=== PATIENT | female | born 1945 | race Caucasian/White ===

== ENCOUNTER 2016-08-09 05:11 | Inpatient (IN) | payer OTHER ==
--- NOTE | 2016-07-31 08:07 | History and Physical ---
History & Physical Date Jul 31, 2016. Chief Complaint Left knee pain History of Present Illness The patient is a 71 year old female who presents for preoperative evaluation prior to a left knee replacement. Patient states that they have been having pain in this knee for many years now, which has gradually worsened, it has now gotten to the point it is affecting her daily activities including walking, standing, going up and down steps. Patient has tried and failed conservative measures including previous cortisone injection and PO NSAIDs with no relief. At this point in time, patient has failed conservative measures and would like to proceed with a left knee replacement. Past Medical/Surgical History Medical Problems: (1) Asthma (2) Diabetes mellitus, type II (3) Dyslipidemia (4) GERD (gastroesophageal reflux disease) (5) Hypertension (6) Hypothyroidism (7) Paroxysmal atrial fibrillation (8) Pulmonary nodules (9) Spinal stenosis of lumbar region (10) Statin intolerance Surgical Problems: (1) H/O shoulder surgery (2) Previous back surgery (3) Status post appendectomy (4) Status post oophorectomy (5) Status post tonsillectomy Additional History Bleeding Tendencies: No Infectious Diseases: No Allergies Coded Allergies: Iodinated Contrast Media (Verified Allergy, Intermediate, HIVES, 06/14/15) Nitrofurantoin (Verified Allergy, Mild, RASH, 06/14/15) Latex1 -Allergic Contact Dermititis (Verified Allergy, Unknown, LOCAL SKIN IRRITATION, 06/14/15) Lidocaine (Verified Allergy, Unknown, lidocaine patch-skin red,hot flushed feeling, 06/14/15) Codeine (Verified Adverse Reaction, Mild, N&V, 06/14/15) Propoxyphene (Verified Adverse Reaction, Mild, NAUSEA AND VOMITING, ) Home Medications Scheduled Aspirin (Aspirin), 81 MG PO DAILY Calcium Carbonate (Calcium), 600 MG PO BID Cholecalciferol (Vitamin D3), 2,000 MG PO BID Cyanocobalamin (Vitamin B-12), 1,000 MCG PO DAILY Fluticasone Prop/Salmeterol (Advair Diskus 250/50 60 Dose), 1 PUFF INH BID Hydrochlorothiazide (Hydrochlorothiazide), 25 MG PO DAILY Irbesartan (Avapro), 150 MG PO DAILY Iron-Vitamin C (Vitron-C), 1 TAB PO DAILY Levothyroxine Sodium (Levothyroxine Sodium), 112 MCG PO DAILY Metformin HCl (Metformin HCl), 500 MG PO DAILY Metoprolol Tartrate (Lopressor) (Lopressor), 75 MG PO QAM Metoprolol Tartrate (Lopressor) (Lopressor), 50 MG PO QPM Omeprazole (Prilosec), 20 MG PO DAILY Sertraline (Zoloft), 25 MG PO DAILY Triamcinolone Acet (Aristocort 0.1%), 1 APPLN TD UD Scheduled PRN Albuterol (Proair Hfa), 2 PUFFS INH Q6H PRN for SOB/Wheezing Alprazolam (Xanax), 0.5 MG PO TID PRN for Anxiety/Agitation Diphenhydramine Hcl (Benadryl), 25 MG PO Q4H PRN for ALLERGIC REACTION Furosemide (Lasix), 20 MG PO DAILY PRN for edema Loratadine (Claritin), 10 MG PO DAILY PRN Physical Examination Skin: warm/dry, no rash Eyes: normal inspection, EOMI, sclerae normal ENT: normal ENT inspection, pharynx normal Head: normocephalic, atraumatic Neck: supple, no adenopathy, trachea midline Cardiovascular: regular rate, rhythm, no edema, no murmur Abdomen / GI: normal bowel sounds, non tender Addiitonal Comments: Left Knee Exam: Knee ROM L * Active ROM - Flexion: 115 degrees, Extension: 5 degrees, Factors: normal, Description: active pain free range of motion. Passive ROM - Flexion: 135 degrees, Extension: 0 degrees, Factors: normal, Description: passive pain free range of motion. Knee ROM R * Active ROM - Flexion: 115 degrees, Extension: 5 degrees, Factors: normal, Description: active pain free range of motion. Passive ROM - Flexion: 135 degrees, Extension: 0 degrees, Factors: normal, Description: passive pain free range of motion. Strength LE Normal Strength Description - Normal lower extremity: Bilateral. Knee * Gait: Antalgic. Alignment - Left: neutral. Ecchymosis - Left: negative. Effusion - Left: mild. Swelling - Left: mild. Flexibility - Left: normal. Maximum tenderness - Left: Medial Joint Line. Patella exam - Crepitation - Left : negative. Patella position - Left: neutral. Tilt - Left: equal. [facility]'s - medial - Left: Positive. Knee Comments The patient has no calf tenderness. Knee Normal Inspection - Atrophy - Left: Absent. Skin - Left: Normal. Patella exam - Apprehension - Left: Negative. Q-angle - Left: Normal. Rusty's - Left: Negative. Tl's - lateral - Left: Negative. Posterior drawer - Left: Negative. Anterior drawer - Left: Negative. Valgus stress - Left: Negative. Varus stress - Left: Negative. Extensor lag - Left: Normal. Neurovascular LE Normal Neurovascular examination including reflexes, sensation , and pulses is within normal limits. Left Knee Xray: Xrays reviewed of the left knee showing findings consistent with degenerative joint disease including joint space narrowing, subchondral sclerosis and peripheral osteophyte formation. no acute bony pathology, overall varus alignment. Impression: degenerative joint disease of the left knee with no acute bony pathology noted. Diagnosis Left Knee DJD Past Medical as above Plan of Treatment Further care discussed with patient and at this point in time has failed conservative measures and would like to proceed with a left total knee replacement. Plan on discharge will be home with home physical therapy. DVT prophalaxis with TEDs, SCDs and will also place on aspirin 81 mg p.o. b.i.d. for a month postop. Patient will have follow up appointment in our office two weeks post op for staple/suture removal and re-evaluation. Patient otherwise has no other questions or concerns.
[2016-07-31 10:15] VITALS: BMI 41.0
--- NOTE | 2016-07-31 11:09 | PAT Medication Instructions ---
Service Date Jul 31, 2016. Current Home Medication List Albuterol (Proair Hfa), 2 PUFFS INH Q6H PRN for SOB/Wheezing Alprazolam (Xanax), 0.25 MG PO QAM Aspirin (Aspirin), 81 MG PO HS Dicyclomine Hcl (Bentyl), 10 MG PO QID PRN for RN Diphenhydramine Hcl (Benadryl), 25 MG PO Q4H PRN for ALLERGIC REACTION Fluticasone Prop/Salmeterol (Advair Diskus 250/50 60 Dose), 1 PUFF INH BID Furosemide (Lasix), 20 MG PO DAILY PRN for edema Hydrochlorothiazide (Hydrochlorothiazide), 25 MG PO QAM Irbesartan (Avapro), 150 MG PO QAM Iron-Vitamin C (Vitron-C), 1 TAB PO HS Levothyroxine Sodium (Levothyroxine Sodium), 1 TAB PO QAM Loratadine (Claritin), 10 MG PO DAILY PRN Metformin HCl (Metformin HCl), 500 MG PO QAM Metoprolol Tartrate (Lopressor) (Lopressor), 75 MG PO QAM Metoprolol Tartrate (Lopressor) (Lopressor), 50 MG PO QPM Ondansetron Hcl (Zofran), 4 MG PO PRN PRN for Nausea Sertraline (Zoloft), 25 MG PO QAM Triamcinolone Acet (Aristocort 0.1%), 1 APPLN TD UD [Vitamin B12], 1 DOSE INJ MONTHLYU Medication Instructions For Your Scheduled Surgery Vitamin B12 1 DOSE INJ MONTHLY (continue as usual) - Hold the following medications 48 hours prior to surgery: Metformin HCl (Metformin HCl), 500 MG PO QAM (last dose will be 08/06/16) - Hold the following medications 24 hours prior to surgery: Triamcinolone Acet (Aristocort 0.1%), 1 APPLN TD UD - Hold the following medications the morning of surgery: Loratadine (Claritin), 10 MG PO DAILY PRN Irbesartan (Avapro), 150 MG PO QAM Hydrochlorothiazide (Hydrochlorothiazide), 25 MG PO QAM Furosemide (Lasix), 20 MG PO DAILY PRN for edema Diphenhydramine Hcl (Benadryl), 25 MG PO Q4H PRN for ALLERGIC REACTION Dicyclomine Hcl (Bentyl), 10 MG PO QID PRN for RN - Take the following medications the morning of surgery with a sip of water: Sertraline (Zoloft), 25 MG PO QAM Metoprolol Tartrate (Lopressor) (Lopressor), 75 MG PO QAM Levothyroxine Sodium (Levothyroxine Sodium), 1 TAB PO QAM Ondansetron Hcl (Zofran), 4 MG PO PRN PRN for Nausea (only if absolutely needed) Fluticasone Prop/Salmeterol (Advair Diskus 250/50 60 Dose), 1 PUFF INH BID Alprazolam (Xanax), 0.25 MG PO QAM Albuterol (Proair Hfa), 2 PUFFS INH Q6H PRN for SOB/Wheezing (bring with you to hospital on day of surgery) - Take the following medications as scheduled the night before surgery: Metoprolol Tartrate (Lopressor) (Lopressor), 50 MG PO QPM Iron-Vitamin C (Vitron-C), 1 TAB PO HS Fluticasone Prop/Salmeterol (Advair Diskus 250/50 60 Dose), 1 PUFF INH BID Dicyclomine Hcl (Bentyl), 10 MG PO QID PRN for RN Aspirin (Aspirin), 81 MG PO HS Albuterol (Proair Hfa), 2 PUFFS INH Q6H PRN for SOB/Wheezing If you have any questions please call us at [phone] or [phone] ( [place]) or [phone]
[2016-07-31 11:51] LABS: URINE APPEARANCE CLEAR (CLEAR); URINE BILIRUBIN NEG (NEG); URINE COLOR YELLOW; URINE NITRITE NEG (NEG); URINE SPECIFIC GRAVITY 1.014 (1.000-1.030); UROBILINOGEN NEG (NEG)
[2016-07-31 11:58] LABS: PROTHROMBIN TIME (PATIENT) 10.6 SECONDS (9.0-12.0)
[2016-07-31 12:28] LABS: MANUAL MICROSCOPIC REQUIRED? NO; REVIEW REQ? NO
[~2016-08-09] VITALS: Ht 149.9 cm; Wt 92.9 kg
[2016-08-09] VITALS (9 sets, daily range): BP systolic 119–173; BP diastolic 67–89; PULSE 67–80; TEMP 36.4–36.6; O2SAT 92–97; Ht 149.9 cm; Wt 92.9 kg
[~2016-08-09 05:11] MED LIST: ADVIN25/60 INH; ALBU1AER9 INH; ALPR-411 PO; ASPI81TA82 PO; BND25 PO; CLR10 PO; DICY10CA55 PO; FERRTAB18 PO; FURO-85 PO; GLC500 PO; HYDR25TA5 PO; IRBE-37 PO; LEVO125T4 PO; METO50TA16 PO; ONDA4TAB46 PO; SERT25TA PO; TRMCR130WC TD; VITAMIN B12 INJ
[2016-08-09] MEDS ORDERED: ACETAMINOPHEN 500 MG TAB PO SCH (06:00)
[2016-08-09] MEDS ORDERED: CEFAZOLIN 2000 MG/60 ML D5W 60 ML IV SCH (06:00)
[2016-08-09] MEDS ORDERED: LACTATED RINGER'S 1000ML 1,000 ML IV SCH (06:00)
[2016-08-09] MEDS ORDERED: LACTATED RINGER'S 1000ML IV SCH (06:00)
[2016-08-09] MEDS ORDERED: CeleBREX 200 MG CAP PO SCH (06:00)
[2016-08-09] MEDS ORDERED: FAMOTIDINE 20 MG TAB PO SCH (06:00)
[2016-08-09] MEDS ORDERED: GABAPENTIN 300 MG CAP PO SCH (06:00)
[2016-08-09] MEDS ORDERED: METOCLOPRAMIDE HCL 10 MG TAB PO SCH (06:00)
[2016-08-09] MEDS ORDERED: ROPIVACAINE 5MG/ML 30 ML 150 MG, BUPIVACAINE/EPINEPHR 0.5% MPF 30 ML, KETOROLAC TROMETH... INFIL SCH ×7 (06:00)
[2016-08-09] MEDS ORDERED: DEXAMETHASONE 4 MG TAB PO SCH (06:00)
[2016-08-09] MEDS ORDERED: BUPIVACAINE 0.25% 30 ML VIAL ONE (06:33)
[2016-08-09] MEDS ORDERED: BUPIVACAINE 0.5 % 5 MG/1 ML PF 10ML VIAL ONE (06:33)
[2016-08-09] MEDS ORDERED: FENTANYL CITRATE INJ 50 MCG/1 ML 2 ML VIAL ONE (06:41)
[2016-08-09] MEDS ORDERED: PROPOFOL IV EMULSION 10 MG/ML 20 ML VIAL IV ONE (06:41)
[2016-08-09] MEDS ORDERED: MIDAZOLAM HCL 1 MG/ML 2ML VIAL ONE (06:41)
[2016-08-09] MEDS ORDERED: LIDOCAINE HCL 2% 2 ML VIAL (20MG/ML) ONE (06:41)
[2016-08-09] MEDS: TRANEXAMIC ACID INJ 1,000 MG in SODIUM CHLORIDE 0.9% 100ML 100 ML IV SCH ×2 (06:51→10:50)
[2016-08-09] MEDS ORDERED: BACITRACIN 50000 UNIT VIAL ONE (06:54)
[2016-08-09] MEDS ORDERED: ORTHO JOINT ANESTHETIC ONE (06:54)
[2016-08-09] MEDS ORDERED: POVIDONE-IODINE OP SOLN 30 ML BTL ONE (06:54)
--- NOTE | 2016-08-09 07:11 | History & Physical Bridge Note ---
H&P Re-Evaluation Bridge Note: I have examined the patient, reviewed the History & Physical and in the interval since the performance of the History & Physical I have noted the following changes of clinical significance: No changes noted
[2016-08-09] MEDS ORDERED: LACTATED RINGER'S 1000ML 1,000 ML IV PRN (07:35)
[2016-08-09] MEDS ORDERED: ONDANSETRON INJ 2 MG/ML 2 ML VIAL IV PRN ×2 (07:45→09:15)
[2016-08-09] MEDS ORDERED: FENTANYL CITRATE INJ 50 MCG/1 ML 2 ML VIAL IV PRN (07:45)
--- NOTE | 2016-08-09 08:30 | [facility] Post Operative Brief Note ---
Immediate Operative Summary Operative Date Aug 09, 2016. Pre-Operative Diagnosis Left Knee Degenerative Joint Disease Post-Operative Diagnosis Left Knee Degenerative Joint Disease Procedure(s) Performed Left Total Knee Arthroplasty Surgeon Dr. Eze Palmer [employer] Administrator Surgeon(s) Herberth Henson PA-C Estimated Blood Loss 10ML Findings severe djd lt knee with valgus alignment Specimens A. Left Knee Bone and Tissue Complication(s) None Disposition Recovery Room / PACU
--- NOTE | 2016-08-09 09:10 | OPERATIVE REPORT ---
DATE OF OPERATION: 08/09/2016 PREOPERATIVE DIAGNOSIS: Severe end-stage degenerative joint disease, left knee with valgus alignment. POSTOPERATIVE DIAGNOSIS: Severe end-stage degenerative joint disease, left knee with valgus alignment. PROCEDURE: Total knee arthroplasty utilizing Aden and Nephew total knee arthroplasty nonblock patient matched knee with a Journey II total knee implant. Femur size 3, tibia size 4, poly size 9 and patella size 32 oval. SURGEON: Dr. Eze Palmer. CHECKER LOADER: Herberth Henson PA-C, who was necessary for prepping, draping, retraction and wound closure of deep fascia, subcutaneous and skin that was necessary for the case. ESTIMATED BLOOD LOSS: 10 mL TOURNIQUET TIME: 45 minutes. COMPLICATIONS: None. HISTORY OF PRESENT ILLNESS: The patient is a very pleasant 71-year-old white female who presents with severe end-stage DJD about her left knee. She presents for left total knee arthroplasty after failing attempts at conservative management including physical therapy, anti-inflammatories, relative rest, activity modification, corticosteroid injections, viscosupplementation. She presents for a left total knee arthroplasty. OPERATION AND FINDINGS: PROCEDURE: The patient was properly prepped and draped in supine position for total knee arthroplasty after identifying the appropriate surgical site. An anterior midline incision was made through the subcutaneous tissues down to the region of the extensor mechanism. A medial parapatellar incision was subsequently made. Meticulous hemostasis was obtained and performed at all times. The patella having been subluxed lateralward, medial and lateral meniscal remnants were excised. The patellar cut was then initially made and was sized to the appropriate size. After subluxing the tibia forward the appropriate meniscal fragments having been removed the distal femur was then cut first utilizing a Aden and Nephew block. The distal femoral cuts and chamfer cuts were all made under direct visualization and the proximal tibial osteotomy cut was also made utilizing Aden and Nephew blocks and checked with an extramedullary guide. The appropriate trial components on the femur and tibia were placed. Appropriate trial spacers were used to check flexion and extension gaps. With flexion and extension gaps being equal, the components were then subsequently after thorough irrigation and debridement lavage components were then subsequently cemented in the following order: femur, tibia and patella. Exparel was used for intraoperative anesthesia, the medial parapatellar incision was closed utilizing #1 Vicryl, subQ was closed with 2-0 Vicryl, skin was closed with skin clips. A sterile compression dressing was placed. The patient was taken to recovery room in stable condition. Due to the complex nature of the procedure, the entire surgery was performed with the operational assistance of Herberth Henson PA-C. The certified surgical first assistant, under direct supervision, was involved in the actual performance of all aspects of the surgical procedure including hemostasis, tissue retraction and incision, instrument management, patient positioning, and wound closure. I attest to the content of the Intraoperative Record and any orders documented therein. Any exceptio ns are noted below.
[2016-08-09] MEDS ORDERED: ALUMINUM/MAGNESIUM/SIMETH (MAALOX MAX) 30 ML UDC PO PRN (09:15)
[2016-08-09] MEDS ORDERED: DICYCLOMINE HCL 10 MG CAP PO PRN (09:15)
[2016-08-09] MEDS ORDERED: SOD PHOSPHATE/SOD BIPHOSPHATE ENEMA 132 ML BTL PR PRN (09:15)
[2016-08-09] MEDS ORDERED: MAGNESIUM HYDROXIDE SUSP 30 ML UDC PO PRN (09:15)
[2016-08-09] MEDS ORDERED: ALBUTEROL HFA 8 GM INHALER INH PRN (09:15)
[2016-08-09] MEDS ORDERED: BISACODYL 10 MG SUPP PR PRN (09:15)
[2016-08-09] MEDS ORDERED: MoRPHine SULFATE 2 MG/ML CARP IV PRN ×2 (09:30→11:15)
[2016-08-09] MEDS ORDERED: SCOPOLAMINE 1.5 MG TDSY TD ONE (09:37)
--- NOTE | 2016-08-09 10:03 | DIAGNOSTIC IMAGING REPORT ---
LEFT KNEE 2 VIEWS History: Left total knee arthroplasty. Degenerative arthritis. Postop. FINDINGS: The patient is status post a left total knee arthroplasty. The hardware is intact. No fracture or dislocation. Surgical drains are in place. IMPRESSION: Left total knee arthroplasty. No evidence for hardware complication. Electronically signed by: Norm Meraz M.D. 08/09/2016 10:01 AM Dictated Date/Time: 08/09/2016 10:01 AM
--- NOTE | 2016-08-09 10:50 | Anesthesiology Progress Note ---
Anesthesia Post Op Note Date & Time Aug 09, 2016 at 10:50 Vital Signs Pain Intensity: 0.0 Vital Signs Past 12 Hours Date Time Temp Pulse Resp B/P Pulse Ox O2 Delivery O2 Flow Rate FiO2 08/09/16 10:15 Nasal Cannula 2.0 08/09/16 10:15 36.5 67 18 128/77 97 Nasal Cannula 2.0 08/09/16 10:15 97 Nasal Cannula 2.0 08/09/16 10:00 64 20 08/09/16 10:00 65 20 91 08/09/16 09:58 128/73 08/09/16 09:55 64 18 96 08/09/16 09:55 64 18 08/09/16 09:54 64 14 95 08/09/16 09:54 61 14 08/09/16 09:53 139/68 08/09/16 09:50 36.4 64 17 130/64 94 Nasal Cannula 2 08/09/16 09:49 62 18 98 08/09/16 09:49 63 18 08/09/16 09:48 130/64 08/09/16 09:44 63 22 08/09/16 09:44 61 22 98 08/09/16 09:43 145/74 08/09/16 09:40 65 18 94 08/09/16 09:40 64 18 08/09/16 09:38 145/69 08/09/16 09:35 65 17 95 08/09/16 09:35 65 17 08/09/16 09:33 136/70 08/09/16 09:30 65 20 96 08/09/16 09:30 65 20 08/09/16 09:28 147/65 08/09/16 09:25 66 21 08/09/16 09:25 66 21 98 08/09/16 09:23 143/65 08/09/16 09:20 65 20 08/09/16 09:20 66 20 100 08/09/16 09:18 133/69 08/09/16 09:15 37.4 70 18 146/75 99 Mask 10 08/09/16 09:15 68 20 08/09/16 09:15 69 20 100 08/09/16 06:00 36.5 69 20 173/89 92 Room Air Notes Mental Status: alert / awake / arousable, participated in evaluation Pt Amnestic to Procedure: Yes Nausea / Vomiting: adequately controlled Pain: adequately controlled Airway Patency, RR, SpO2: stable & adequate BP & HR: stable & adequate Hydration State: stable & adequate Anesthetic Complications: no major complications apparent
[2016-08-09] MEDS: SODIUM CHLORIDE 0.9% 1000ML 1,000 ML IV SCH ×2 (10:51→20:52)
[2016-08-09] MEDS ORDERED: MoRPHine SULFATE 10 MG/ML CARP/VIAL IV PRN (11:00)
[2016-08-09] MEDS ORDERED: MoRPHine SULFATE 4 MG/ML 1 ML CARP\\VIAL IV PRN (11:00)
--- NOTE | 2016-08-09 11:14 | Medical Consult ---
Consultation Date of Consultation: Aug 09, 2016. Attending Physician: Eze Palmer D.O. Reason for Consultation: Medical management History of Present Illness This is a 71 yo F with PMHx DM II, HTN, paroxsysmal atrial fibrillation, pulmonary granulomas, hypothyroidism, asthma, spinal stenosis of the lubar spine , dyslipidemia, s/p left total knee replacement completed 08/09/[address] Palmer. The patient was seen at bedside this morning, her daughter is present too. She is doing well s/p surgery. Her pain is adequately controlled. No acute complaints. She has not yet passed gas. Patient has feeling of her distal extremities and states numbness is wearing off. Past Medical/Surgical History HTN Paroxsysmal atrial fibrillation DM II Hypothyroidism Asthma Spinal stenosis Dyslipidemia Family History FH: HTN (hypertension) FH: diabetes mellitus FH: gallbladder disease FH: heart disease FH: kidney disease FH: seizures Social History Smoking Status: Former Smoker Smokeless Tobacco Use: No Alcohol Use: none Drug Use: none Marital Status: single Housing Status: lives alone Occupation Status: employed Allergies Coded Allergies: Iodinated Contrast Media (Verified Allergy, Intermediate, HIVES, 08/09/16) Nitrofurantoin (Verified Allergy, Mild, RASH, 08/09/16) Latex1 -Allergic Contact Dermititis (Verified Allergy, Unknown, LOCAL SKIN IRRITATION, 08/09/16) Lidocaine (Verified Allergy, Unknown, lidocaine patch-skin red,hot flushed feeling, 08/09/16) Statins (Unverified Allergy, Unknown, LEG CRAMPS, 07/31/16) Codeine (Verified Adverse Reaction, Mild, N&V, 07/31/16) Propoxyphene (Verified Adverse Reaction, Mild, NAUSEA AND VOMITING, ) Current Inpatient Medications Current Inpatient Medications Medications (Trade) Dose Ordered Sig/Connor Route Start Time Stop Time Status Last Admin Dose Admin Cefazolin Sodium (Ancef 2000mg/60 ml D5W) 60 ml @ 100 mls/hr PREOP IV 08/09/16 06:00 08/09/16 18:00 Acetaminophen (Tylenol Tab) 1,000 mg PREOP PO 08/09/16 06:00 08/09/16 18:00 08/09/16 05:46 1,000 MG Celecoxib (CeleBREX CAP) 200 mg PREOP PO 08/09/16 06:00 08/09/16 18:00 08/09/16 05:47 200 MG Dexamethasone (Decadron Tab) 8 mg PREOP PO 08/09/16 06:00 08/09/16 18:00 08/09/16 05:46 8 MG Famotidine (Pepcid Tab) 20 mg PREOP PO 08/09/16 06:00 08/09/16 18:00 08/09/16 05:47 20 MG Gabapentin (Neurontin Cap) 300 mg PREOP PO 08/09/16 06:00 08/09/16 18:00 08/09/16 05:47 300 MG Metoclopramide HCl 10 mg 10 mg PREOP PO 08/09/16 06:00 08/09/16 18:00 08/09/16 05:47 10 MG Tranexamic Acid 1000 mg/Sodium Chloride 110 ml @ 660 mls/hr TODAY@06,0630 IV 08/09/16 06:00 08/09/16 18:00 08/09/16 06:51 660 MLS/HR Ropivacaine/ Bupivacaine HCl/ Epinephrine Bitart/Ketorolac Tromethamine/ Dexamethasone Sodium Phosphate/ Ketamine HCl/ Clonidine/Sodium Chloride/Empty Bag (Naropin Inj 5MG/ Ml 30ML/ Sensorcaine/ Epinephrine 0.5% Mpf 1:200,000/ Toradol Inj/ Decadron Inj/ Ketalar Steri-Vial I... 93.2 ml @ 0 mls/hr TODAY@06 INFIL 08/09/16 06:00 08/09/16 14:00 08/09/16 08:35 93.2 MLS/HR Fentanyl Citrate (Fentanyl Inj) 25 mcg Q5M PRN IV 08/09/16 07:45 08/09/16 12:45 Ondansetron HCl 4 mg 4 mg ONE PRN IV 08/09/16 07:45 08/09/16 12:45 Lactated Ringer's 1,000 ml @ 130 mls/hr Q7H42M PRN IV 08/09/16 07:35 08/09/16 12:35 Sodium Chloride 1,000 ml @ 100 mls/hr Q10H IV 08/09/16 09:14 08/10/16 09:13 08/09/16 10:51 100 MLS/HR Cefazolin Sodium/ Dextrose (Ancef Iv/D5 50ml) 60 ml @ 100 mls/hr Q8H IV 08/09/16 16:00 08/10/16 00:35 Acetaminophen (Tylenol Tab) 1,000 mg Q8 PO 08/09/16 14:00 09/08/16 13:59 Magnesium Hydroxide (Milk Of Magnesia Susp) 30 ml Q6H PRN PO 08/09/16 09:15 09/08/16 09:14 Bisacodyl (Dulcolax Supp) 10 mg DAILY PRN [place] 08/09/16 09:15 09/08/16 09:14 Sodium Biphosphate/ Sodium Phosphate (Fleet Enema) 132 ml DAILY PRN [place] 08/09/16 09:15 09/08/16 09:14 Senna (Senokot Tab) 17.2 mg HS PO 08/09/16 21:00 09/08/16 20:59 Docusate Sodium (coLACE CAP) 100 mg BID PO 08/09/16 21:00 09/08/16 20:59 Diphenhydramine HCl (Benadryl Cap) 25 mg Q8H PRN PO 08/09/16 09:15 09/08/16 09:14 Al Hydrox/Mg Hydrox/Simethicone (Maalox Max Susp) 15 ml Q4H PRN PO 08/09/16 09:15 09/08/16 09:14 Multivitamins (Multivitamin Tab) 1 tab QAM PO 08/10/16 09:00 09/09/16 08:59 Ondansetron HCl (Zofran Inj) 4 mg Q6H PRN IV 08/09/16 09:15 09/08/16 09:14 Ferrous Gluconate (Ferrous Gluconate Tab) 324 mg TIDM PO 08/09/16 12:30 09/08/16 12:29 Pantoprazole Sodium (Protonix Tab) 40 mg QAM PO 08/10/16 09:00 09/09/16 08:59 Aspirin (Ecotrin Tab) 81 mg BID PO 08/09/16 21:00 09/08/16 20:59 Albuterol (Ventolin Hfa Inhaler) 2 puffs Q6H PRN INH 08/09/16 09:15 09/08/16 09:14 Alprazolam (Xanax Tab) 0.25 mg QAM PO 08/10/16 09:00 09/09/16 08:59 Dicyclomine HCl (Bentyl Cap) 10 mg QID PRN PO 08/09/16 09:15 09/08/16 09:14 Salmeterol Xinafoate/ Fluticasone (Advair Diskus 250/50 Inh) 1 puff BID INH 08/09/16 21:00 09/08/16 20:59 Irbesartan (Avapro Tab) 150 mg QAM PO 08/10/16 09:00 09/09/16 08:59 Levothyroxine Sodium (Synthroid Tab) 125 mcg DAILYBB PO 08/10/16 06:00 09/09/16 05:59 Loratadine (Claritin Tab) 10 mg DAILY PO 08/10/16 09:00 09/09/16 08:59 Metoprolol Tartrate (Lopressor Tab) 50 mg QPM PO 08/09/16 21:00 09/08/16 20:59 Metoprolol Tartrate (Lopressor Tab) 75 mg QAM PO 08/10/16 09:00 09/09/16 08:59 Sertraline HCl (Zoloft Tab) 25 mg QAM PO 08/10/16 09:00 09/09/16 08:59 Miscellaneous Information (Order Awaiting Action) 1 ea QS N/A 08/09/16 16:00 09/08/16 15:59 Insulin Aspart (novoLOG ASPART) SLIDING SCALE G... ACHS SC 08/09/16 12:00 09/08/16 11:59 Oxycodone HCl (Roxicodone Immediate Rel Tab) 1 TABLET FOR PAIN RATING... Q4H PRN PO 08/09/16 09:30 08/23/16 09:29 Tramadol HCl (Ultram Tab) 50 mg Q4H PRN PO 08/09/16 09:30 09/08/16 09:29 Scopolamine (Transderm-Scop Patch) 1.5 mg Q72H TD 08/12/16 10:00 09/11/16 09:59 Miscellaneous (Remove Transderm-Scop Patch) 1 ea Q72H N/A 08/12/16 09:59 09/11/16 09:58 Miscellaneous Information (Check Scopolamine Patch Placement) 1 ea QS N/A 08/09/16 16:00 09/08/16 15:59 Morphine Sulfate (MoRPHine SULFATE INJ) 4 mg Q4HWA PRN IV 08/09/16 09:30 08/23/16 09:29 Morphine Sulfate (MoRPHine SULFATE INJ) 4 mg Q4HWA PRN IV 08/09/16 11:00 08/23/16 10:59 Morphine Sulfate (MoRPHine SULFATE INJ) 6 mg Q4HWA PRN IV 08/09/16 11:00 08/23/16 10:59 Morphine Sulfate (MoRPHine SULFATE INJ) 2 mg Q4HWA PRN IV 08/09/16 11:15 08/23/16 11:14 Review of Systems Constitutional: + fatigue, No chills, No fever, No sweats Eyes: No diplopia ENT: No sore throat, No trouble swallowing Respiratory: + cough (chronic dry cough), No dyspnea at rest, No dyspnea on exertion, No shortness of breath Cardiovascular: No chest pain, No palpitations Abdomen: No constipation, No diarrhea, No nausea, No pain, No vomiting Musculoskeletal: No calf pain Neurologic: No numbness/tingling, No weakness Integumentary: No itch, No rash Physical Exam Date Time Temp Pulse Resp B/P Pulse Ox O2 Delivery O2 Flow Rate FiO2 08/09/16 10:52 68 18 144/84 92 Nasal Cannula 2.0 08/09/16 10:15 Nasal Cannula 2.0 08/09/16 10:15 36.5 67 18 128/77 97 Nasal Cannula 2.0 08/09/16 10:15 97 Nasal Cannula 2.0 08/09/16 10:00 64 20 08/09/16 10:00 65 20 91 08/09/16 09:58 128/73 08/09/16 09:55 64 18 96 08/09/16 09:55 64 18 08/09/16 09:54 64 14 95 08/09/16 09:54 61 14 08/09/16 09:53 139/68 08/09/16 09:50 36.4 64 17 130/64 94 Nasal Cannula 2 08/09/16 09:49 62 18 98 08/09/16 09:49 63 18 08/09/16 09:48 130/64 08/09/16 09:44 63 22 2/15/17 09:44 61 22 98 08/09/16 09:43 145/74 08/09/16 09:40 65 18 94 08/09/16 09:40 64 18 08/09/16 09:38 145/69 08/09/16 09:35 65 17 95 08/09/16 09:35 65 17 08/09/16 09:33 136/70 08/09/16 09:30 65 20 96 08/09/16 09:30 65 20 08/09/16 09:28 147/65 08/09/16 09:25 66 21 08/09/16 09:25 66 21 98 08/09/16 09:23 143/65 08/09/16 09:20 65 20 08/09/16 09:20 66 20 100 08/09/16 09:18 133/69 08/09/16 09:15 37.4 70 18 146/75 99 Mask 10 08/09/16 09:15 68 20 08/09/16 09:15 69 20 100 08/09/16 06:00 36.5 69 20 173/89 92 Room Air General Appearance: WD/WN, no apparent distress, + obese Head: normocephalic, atraumatic Eyes: PERRL, EOMI ENT: hearing grossly normal, pharynx normal Neck: supple, no JVD Respiratory/Chest: lungs clear, normal breath sounds, no respiratory distress, no accessory muscle use Cardiovascular: regular rate, rhythm, no JVD, normal peripheral pulses Abdomen/GI: normal bowel sounds, non tender, soft Back: normal inspection Extremities/Musculoskelatal: normal capillary refill, no pedal edema, + pertinent finding (LLE in HALLE wrap, ice pack on knee, SCDs in place bilaterally. No pain with calf palpation. No edema. ) Neurologic/Psych: alert, normal mood/affect, oriented x 3 Skin: normal color, warm/dry Laboratory Results Last 24 Hours Test 08/09/16 06:07 08/09/16 09:31 Bedside Glucose 136 mg/dl 165 mg/dl Assessment & Plan This is a 71 yo F with PMHx DM II, HTN, paroxsysmal atrial fibrillation, pulmonary granulomas, hypothyroidism, asthma, spinal stenosis of the lubar spine , dyslipidemia, s/p left total knee replacement completed 08/09/[address] Palmer. S/p Left TKA by Dr. Palmer on 08/09/16 - Analgesia with oxycodone 5 or 10 mg Q4H prn, tramadol 50 mg Q4H prn, morphine sulfate IV 2,4,6 mg prn - Bowel regimen with miralax, senna, colace, MOM prn - PT/OT and anticoagulation (asa 81 mg BID) per the primary team - Continue elevation and ice - Received dexamethasone 8 mg, gabapentin 200 mg po and celebrex 200 mg po, prior to surgery, likely to see WBC and glucose elevate due to steroid. HTN - Cont home medications metoprolol 50 mg QAM and 75 mg QPM - Continue irbesartan 150 mg QAM - VSS stable DM II - ISS with accuchecks ACHS - Received steroid preop, will need to adjust ISS accordingly - Diabetic/ aha diet Depression/Anxiety - Cont sertraline 25 mg QAM - xanax 0.25 mg for anxiety Q8H prn Lung granulomas Asthma - Follows with Dr. 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 I personally have seen and examined the patient d/w Miss Mcarthur, and agreed with her evaluation. This is a 71 yo F with PMHx aroxsysmal atrial fibrillation and severe GAURAV s/p left total knee replacement today by Dr. Palmer Continue supportive care Instructed to start using her CPAP DVT prophylaxis by primary team rest of the plan as mentioned above
[2016-08-09 12:39] LABS: BASO % 0.1 %; BASO ABS # 0.01 K/uL (0-0.2); COMPLETE YES; HEMATOCRIT 33.9 % (37-47); IG% 0.3 %; LYMPH % 6.2 %; LYMPH ABS # 0.47 K/uL (1.2-3.4); MEAN CELL VOLUME 92.9 fL (80-100); MEAN CORPUSCULAR HEMOGLOBIN 32.9 pg (25-34); MEAN CORPUSCULAR HGB CONC 35.4 g/dl (32-36); MEAN PLATELET VOLUME 8.7 fL (7.4-10.4); MONO % 0.3 %; NEUT % 93.1 %; PLATELET COUNT 232 K/uL (130-400); RED BLOOD COUNT 3.65 M/uL (4.2-5.4); WHITE BLOOD COUNT 7.57 K/uL (4.8-10.8)
[2016-08-09 13:18] LABS: BUN/CREATININE RATIO 23.1 (10-20); CALCIUM 8.6 mg/dl (8.5-10.1); CREATININE 0.99 mg/dl (0.60-1.20); POTASSIUM 4.2 mmol/L (3.5-5.1)
[2016-08-09] MEDS: FERROUS GLUCONATE 324 MG TAB PO SCH ×2 (13:41→18:12)
[2016-08-09] MEDS: ACETAMINOPHEN 500 MG TAB PO SCH ×2 (13:41→22:09)
[2016-08-09] MEDS: INSULIN ASPART 100 UNITS/ML 3 ML PEN SC SCH ×3 (13:44→21:02)
[2016-08-09] MEDS: CEFAZOLIN IV 2,000 MG in DEXTROSE 5% 50ML 50 ML IV SCH ×2 (15:42→23:25)
[2016-08-09] MEDS: CHECK SCOPOLAMINE PATCH PLACEMENT SCH ×2 (15:43→23:25)
[2016-08-09] MEDS: TRAMADOL HCL 50 MG TAB PO PRN ×2 (16:11→23:29)
[2016-08-09] MEDS: FLUTICASONE/SALMETEROL 250/50 (ADVAIR) 14 PUFF/1 INHALER INH SCH (20:52)
[2016-08-09] MEDS: ASPIRIN 81 MG ECTAB PO SCH (20:53)
[2016-08-09] MEDS: DOCUSATE SODIUM 100 MG CAP PO SCH (20:53)
[2016-08-09] MEDS: SENNA 8.6 MG TAB PO SCH (20:54)
[2016-08-09] MEDS: METOPROLOL TARTRATE 50 MG TAB PO SCH (20:56)
[2016-08-09] MEDS ORDERED: NON-FORMULARY MEDICATION (Iron-Vitamin C (Vitron-C) 1 TAB) PO SCH (21:00)
[2016-08-10] VITALS (8 sets, daily range): BP systolic 103–184; BP diastolic 61–79; PULSE 65–76; TEMP 36.7–37.8; O2SAT 92–95
[2016-08-10] MEDS: SODIUM CHLORIDE 0.9% 1000ML 1,000 ML IV SCH (05:16)
[2016-08-10] MEDS: LEVOTHYROXINE 125 MCG TAB PO SCH (05:18)
[2016-08-10] MEDS: ACETAMINOPHEN 500 MG TAB PO SCH ×3 (05:18→21:23)
[2016-08-10 06:15] LABS: HEMATOCRIT 28.8 % (37-47); MEAN CELL VOLUME 93.8 fL (80-100); MEAN CORPUSCULAR HEMOGLOBIN 31.9 pg (25-34); MEAN PLATELET VOLUME 9.2 fL (7.4-10.4); PLATELET COUNT 245 K/uL (130-400); RED BLOOD COUNT 3.07 M/uL (4.2-5.4)
[2016-08-10 06:22] LABS: PROTHROMBIN TIME (PATIENT) 11.2 SECONDS (9.0-12.0)
[2016-08-10 07:04] LABS: BUN/CREATININE RATIO 21.9 (10-20); CALCIUM 8.1 mg/dl (8.5-10.1)
--- NOTE | 2016-08-10 07:39 | Orthopedic Progress Note ---
Orthopedic Progress Note Date of Service Aug 10, 2016. Subjective Post OP Day: 1 Reports: feeling well, Denies: SOB, calf pain, chest pain, light headedness, nausea / vomiting Objective calves soft nontender, N/V intact, A&O x3, toes mobile Dressings with mild drainage noted. Date Time Temp Pulse Resp B/P Pulse Ox O2 Delivery O2 Flow Rate FiO2 08/10/16 04:10 36.7 76 16 103/61 92 Room Air 08/09/16 23:35 36.4 71 18 126/69 93 Room Air 08/09/16 23:20 Room Air 08/09/16 20:55 80 132/70 08/09/16 19:11 36.5 80 16 122/69 93 Room Air 08/09/16 15:32 36.4 76 16 119/67 96 Nasal Cannula 2.0 08/09/16 15:18 Nasal Cannula 2.0 08/09/16 14:06 36.6 72 18 148/72 94 2.0 08/09/16 12:20 36.6 68 18 134/69 92 Nasal Cannula 2.0 08/09/16 10:52 68 18 144/84 92 Nasal Cannula 2.0 08/09/16 10:15 Nasal Cannula 2.0 08/09/16 10:15 36.5 67 18 128/77 97 Nasal Cannula 2.0 08/09/16 10:15 97 Nasal Cannula 2.0 08/09/16 10:00 64 20 08/09/16 10:00 65 20 91 08/09/16 09:58 128/73 08/09/16 09:55 64 18 96 08/09/16 09:55 64 18 08/09/16 09:54 64 14 95 08/09/16 09:54 61 14 08/09/16 09:53 139/68 08/09/16 09:50 36.4 64 17 130/64 94 Nasal Cannula 2 08/09/16 09:49 62 18 98 08/09/16 09:49 63 18 08/09/16 09:48 130/64 08/09/16 09:44 63 22 08/09/16 09:44 61 22 98 08/09/16 09:43 145/74 08/09/16 09:40 65 18 94 08/09/16 09:40 64 18 08/09/16 09:38 145/69 08/09/16 09:35 65 17 95 08/09/16 09:35 65 17 08/09/16 09:33 136/70 08/09/16 09:30 65 20 96 08/09/16 09:30 65 20 08/09/16 09:28 147/65 08/09/16 09:25 66 21 08/09/16 09:25 66 21 98 08/09/16 09:23 143/65 08/09/16 09:20 65 20 08/09/16 09:20 66 20 100 08/09/16 09:18 133/69 08/09/16 09:15 37.4 70 18 146/75 99 Mask 10 08/09/16 09:15 68 20 08/09/16 09:15 69 20 100 Laboratory Results 24 Hours: Test 08/09/16 12:20 08/10/16 05:18 White Blood Count 7.57 K/uL Red Blood Count 3.65 M/uL Hemoglobin 12.0 g/dL 9.8 g/dL Hematocrit 33.9 % 28.8 % Mean Corpuscular Volume 92.9 fL Mean Corpuscular Hemoglobin 32.9 pg Mean Corpuscular Hemoglobin Concent 35.4 g/dl Platelet Count 232 K/uL Mean Platelet Volume 8.7 fL Neutrophils (%) (Auto) 93.1 % Lymphocytes (%) (Auto) 6.2 % Monocytes (%) (Auto) 0.3 % Eosinophils (%) (Auto) 0.0 % Basophils (%) (Auto) 0.1 % Neutrophils # (Auto) 7.05 K/uL Lymphocytes # (Auto) 0.47 K/uL Monocytes # (Auto) 0.02 K/uL Eosinophils # (Auto) 0.00 K/uL Basophils # (Auto) 0.01 K/uL Prothromb Time International Ratio 1.0 Prothrombin Time 11.2 SECONDS Assessment & Plan Assessment: POD 1 s/p Left TKA Plan: PT/OT Planning for OPPT upon dc Inhouse Planning Pain Management: Morphine, Oxy IR DVT Prophylaxis: TEDs, SCDs, ASA Discharge Planning Discharge Planning: home with oppt Pain Management: Oxy IR DVT Prophylaxis: TEDs, ASA Therapy: Physical Therapy
[2016-08-10] MEDS: ALPRAZOLAM 0.5 MG TAB PO SCH (09:00)
[2016-08-10] MEDS: ASPIRIN 81 MG ECTAB PO SCH ×2 (09:08→21:22)
[2016-08-10] MEDS: METOPROLOL TARTRATE 25 MG TAB PO SCH (09:08)
[2016-08-10] MEDS: TRAMADOL HCL 50 MG TAB PO PRN ×3 (09:08→21:23)
[2016-08-10] MEDS: DOCUSATE SODIUM 100 MG CAP PO SCH ×2 (09:08→21:22)
[2016-08-10] MEDS: LORATADINE 10 MG TAB PO SCH (09:08)
[2016-08-10] MEDS: FLUTICASONE/SALMETEROL 250/50 (ADVAIR) 14 PUFF/1 INHALER INH SCH ×2 (09:08→21:22)
[2016-08-10] MEDS: SERTRALINE HCL 50 MG TAB PO SCH (09:09)
[2016-08-10] MEDS: IRBESARTAN 150 MG TAB PO SCH (09:09)
[2016-08-10] MEDS: FERROUS GLUCONATE 324 MG TAB PO SCH ×3 (09:09→18:04)
[2016-08-10] MEDS: PANTOprazole SOD 40 MG TAB PO SCH (09:09)
[2016-08-10] MEDS: MULTIVITAMIN TAB PO SCH (09:10)
[2016-08-10] MEDS: CHECK SCOPOLAMINE PATCH PLACEMENT SCH ×2 (09:15→16:02)
[2016-08-10] MEDS: INSULIN ASPART 100 UNITS/ML 3 ML PEN SC SCH ×4 (09:20→21:19)
--- NOTE | 2016-08-10 14:39 | Progress Note ---
Subjective Date of Service: Aug 10, 2016. Subjective Pt evaluation today including: conversation w/ patient, physical exam, chart review, lab review, review of inpatient medication list Review of Systems Constitutional: No chills, No fatigue, No fever, No problem reported, No see HPI, No sweats, No weakness, No weight loss Eyes: No diplopia, No discharge, No eye pain, No problem reported, No redness, No see HPI, No worsening of vision ENT: No dental problems, No hearing loss, No nasal symptoms, No problem reported, No see HPI, No sore throat, No tinnitus, No trouble swallowing, No unusual epistaxis Respiratory: No cough, No dyspnea at rest, No dyspnea on exertion, No hemoptysis, No problem reported, No see HPI, No shortness of breath, No sputum, No wheezing Cardiac: No PND, No chest pain, No claudication, No edema, No orthopnea, No palpitations, No problem reported, No see HPI Abdomen: No GI bleeding, No constipation, No diarrhea, No nausea, No pain, No problem reported, No see HPI, No vomiting Musculoskeletal: + joint pain, + muscle pain Neurologic: No balance problems, No memory loss, No numbness/tingling, No paralysis, No problem reported, No see HPI, No vertigo, No weakness Heme: No abnormal bleeding/bruising, No clotting problems, No night sweats, No problem reported, No see HPI, No swollen lymph nodes Endo: No excessive thirst, No excessive urination, No fatigue, No problem reported, No see HPI Skin: No bleeding, No color change, No itch, No new/changing skin lesions, No problem reported, No rash, No see HPI Medications Current Inpatient Medications Medications (Trade) Dose Ordered Sig/Connor Route Start Time Stop Time Status Last Admin Dose Admin Acetaminophen (Tylenol Tab) 1,000 mg Q8 PO 08/09/16 14:00 09/08/16 13:59 08/10/16 13:14 1,000 MG Magnesium Hydroxide (Milk Of Magnesia Susp) 30 ml Q6H PRN PO 08/09/16 09:15 09/08/16 09:14 Bisacodyl (Dulcolax Supp) 10 mg DAILY PRN [place] 08/09/16 09:15 09/08/16 09:14 Sodium Biphosphate/ Sodium Phosphate (Fleet Enema) 132 ml DAILY PRN [place] 08/09/16 09:15 09/08/16 09:14 Senna (Senokot Tab) 17.2 mg HS PO 08/09/16 21:00 09/08/16 20:59 08/09/16 20:54 17.2 MG Docusate Sodium (coLACE CAP) 100 mg BID PO 08/09/16 21:00 09/08/16 20:59 08/10/16 09:08 100 MG Diphenhydramine HCl (Benadryl Cap) 25 mg Q8H PRN PO 08/09/16 09:15 09/08/16 09:14 08/10/16 03:18 25 MG Al Hydrox/Mg Hydrox/Simethicone (Maalox Max Susp) 15 ml Q4H PRN PO 08/09/16 09:15 09/08/16 09:14 Multivitamins (Multivitamin Tab) 1 tab QAM PO 08/10/16 09:00 09/09/16 08:59 08/10/16 09:10 1 TAB Ondansetron HCl (Zofran Inj) 4 mg Q6H PRN IV 08/09/16 09:15 09/08/16 09:14 Ferrous Gluconate (Ferrous Gluconate Tab) 324 mg TIDM PO 08/09/16 12:30 09/08/16 12:29 08/10/16 13:13 324 MG Pantoprazole Sodium (Protonix Tab) 40 mg QAM PO 08/10/16 09:00 09/09/16 08:59 08/10/16 09:09 40 MG Aspirin (Ecotrin Tab) 81 mg BID PO 08/09/16 21:00 09/08/16 20:59 08/10/16 09:08 81 MG Albuterol (Ventolin Hfa Inhaler) 2 puffs Q6H PRN INH 08/09/16 09:15 09/08/16 09:14 Alprazolam (Xanax Tab) 0.25 mg QAM PO 08/10/16 09:00 09/09/16 08:59 Dicyclomine HCl (Bentyl Cap) 10 mg QID PRN PO 08/09/16 09:15 09/08/16 09:14 Salmeterol Xinafoate/ Fluticasone (Advair Diskus 250/50 Inh) 1 puff BID INH 08/09/16 21:00 09/08/16 20:59 08/10/16 09:08 1 PUFF Irbesartan (Avapro Tab) 150 mg QAM PO 08/10/16 09:00 09/09/16 08:59 08/10/16 09:09 150 MG Levothyroxine Sodium (Synthroid Tab) 125 mcg DAILYBB PO 08/10/16 06:00 09/09/16 05:59 08/10/16 05:18 125 MCG Loratadine (Claritin Tab) 10 mg DAILY PO 08/10/16 09:00 09/09/16 08:59 08/10/16 09:08 10 MG Metoprolol Tartrate (Lopressor Tab) 50 mg QPM PO 08/09/16 21:00 09/08/16 20:59 08/09/16 20:56 50 MG Metoprolol Tartrate (Lopressor Tab) 75 mg QAM PO 08/10/16 09:00 09/09/16 08:59 08/10/16 09:08 75 MG Sertraline HCl (Zoloft Tab) 25 mg QAM PO 08/10/16 09:00 09/09/16 08:59 08/10/16 09:09 25 MG Miscellaneous Information (Order Awaiting Action) 1 ea QS N/A 08/09/16 16:00 09/08/16 15:59 Insulin Aspart (novoLOG ASPART) SLIDING SCALE G... ACHS SC 08/09/16 12:00 09/08/16 11:59 08/10/16 13:13 4 UNITS Oxycodone HCl (Roxicodone Immediate Rel Tab) 1 TABLET FOR PAIN RATING... Q4H PRN PO 08/09/16 09:30 08/23/16 09:29 Tramadol HCl (Ultram Tab) 50 mg Q4H PRN PO 08/09/16 09:30 09/08/16 09:29 08/10/16 09:08 50 MG Scopolamine (Transderm-Scop Patch) 1.5 mg Q72H TD 08/12/16 10:00 09/11/16 09:59 Miscellaneous (Remove Transderm-Scop Patch) 1 ea Q72H N/A 08/12/16 09:59 09/11/16 09:58 Miscellaneous Information (Check Scopolamine Patch Placement) 1 ea QS N/A 08/09/16 16:00 09/08/16 15:59 08/10/16 09:15 1 EA Morphine Sulfate (MoRPHine SULFATE INJ) 4 mg Q4HWA PRN IV 08/09/16 11:00 08/23/16 10:59 Morphine Sulfate (MoRPHine SULFATE INJ) 6 mg Q4HWA PRN IV 08/09/16 11:00 08/23/16 10:59 Morphine Sulfate (MoRPHine SULFATE INJ) 2 mg Q4HWA PRN IV 08/09/16 11:15 08/23/16 11:14 08/10/16 03:19 2 MG Objective Vital Signs Date Time Temp Pulse Resp B/P Pulse Ox O2 Delivery O2 Flow Rate FiO2 08/10/16 11:25 36.8 65 16 115/62 95 Room Air 08/10/16 09:56 70 94 08/10/16 07:50 Room Air 08/10/16 07:00 36.7 67 16 150/79 95 Room Air 08/10/16 04:10 36.7 76 16 103/61 92 Room Air 08/09/16 23:35 36.4 71 18 126/69 93 Room Air 08/09/16 23:20 Room Air 08/09/16 20:55 80 132/70 08/09/16 19:11 36.5 80 16 122/69 93 Room Air 08/09/16 15:32 36.4 76 16 119/67 96 Nasal Cannula 2.0 08/09/16 15:18 Nasal Cannula 2.0 Physical Exam General Appearance: WD/WN, no apparent distress Eyes: normal inspection, EOMI ENT: normal ENT inspection, hearing grossly normal Neck: supple Respiratory/Chest: chest non-tender, lungs clear, normal breath sounds, no respiratory distress, no accessory muscle use Cardiovascular: regular rate, rhythm, no edema, no gallop, no JVD, no murmur Abdomen: normal bowel sounds, non tender, soft, no organomegaly, no pulsatile mass Extremities: normal range of motion, non-tender, normal inspection, no pedal edema, no calf tenderness Neurologic/Psychiatric: supervisor rose grading II-XII nml as tested, no motor/sensory deficits, alert, normal mood/affect, oriented x 3 Skin: normal color, warm/dry, no rash Laboratory Results Last 24 Hours Test 08/09/16 17:12 08/09/16 20:31 08/10/16 05:18 08/10/16 08:40 Bedside Glucose 300 mg/dl 323 mg/dl 143 mg/dl White Blood Count 14.70 K/uL Red Blood Count 3.07 M/uL Hemoglobin 9.8 g/dL Hematocrit 28.8 % Mean Corpuscular Volume 93.8 fL Mean Corpuscular Hemoglobin 31.9 pg Mean Corpuscular Hemoglobin Concent 34.0 g/dl RDW Standard Deviation 43.7 fL RDW Coefficient of Variation 12.8 % Platelet Count 245 K/uL Mean Platelet Volume 9.2 fL Prothrombin Time 11.2 SECONDS Prothromb Time International Ratio 1.0 Sodium Level 141 mmol/L Potassium Level 4.0 mmol/L Chloride Level 107 mmol/L Carbon Dioxide Level 22 mmol/L Anion Gap 12.0 mmol/L Blood Urea Nitrogen 22 mg/dl Creatinine 1.00 mg/dl Est Creatinine Clear Calc Drug Dose 49.9 ml/min Estimated GFR () 64.7 Estimated GFR (Non- 55.8 BUN/Creatinine Ratio 21.9 Random Glucose 127 mg/dl Calcium Level 8.1 mg/dl Test 08/10/16 12:28 Bedside Glucose 139 mg/dl Assessment and Plan This is a 71 yo F with PMHx DM II, HTN, paroxsysmal atrial fibrillation, pulmonary granulomas, hypothyroidism, asthma, spinal stenosis of the lubar spine , dyslipidemia, s/p left total knee replacement completed 08/09/[address] Palmer. patient was slightly confused this morning which can be multifactorial; pain meds, sun down currently improved S/p Left TKA by Dr. Palmer on 08/09/16 - continue pain management - Bowel regimen with miralax, senna, colace, MOM prn - PT/OT and anticoagulation (asa 81 mg BID) per the primary team - Continue elevation and ice - Received dexamethasone 8 mg prior to surgery HTN - Cont home medications metoprolol / irbesartan DM II - ISS with accuchecks ACHS Depression/Anxiety - Cont sertraline 25 mg QAM - xanax 0.25 mg for anxiety Q8H prn Lung granulomas Asthma - Follows with Dr. 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
[2016-08-10] MEDS: METOPROLOL TARTRATE 50 MG TAB PO SCH (21:22)
[2016-08-10] MEDS: SENNA 8.6 MG TAB PO SCH (21:22)
[2016-08-11] MEDS: CHECK SCOPOLAMINE PATCH PLACEMENT SCH ×3 (00:07→15:37)
[2016-08-11 00:15] VITALS: BP 166/79
[2016-08-11] MEDS: OXYCODONE HCL IR 5 MG TAB (IMMEDIATE RELEASE) PO PRN ×2 (01:40→05:41)
[2016-08-11] MEDS: LEVOTHYROXINE 125 MCG TAB PO SCH (05:34)
[2016-08-11] MEDS: ACETAMINOPHEN 500 MG TAB PO SCH ×3 (05:35→21:02)
[2016-08-11 06:14] LABS: BASO % 0.2 %; BASO ABS # 0.02 K/uL (0-0.2); COMPLETE YES; EOS % 1.1 %; HEMATOCRIT 30.9 % (37-47); IG% 0.4 %; LYMPH % 12.1 %; LYMPH ABS # 1.35 K/uL (1.2-3.4); MEAN CELL VOLUME 93.6 fL (80-100); MEAN CORPUSCULAR HEMOGLOBIN 32.4 pg (25-34); MEAN CORPUSCULAR HGB CONC 34.6 g/dl (32-36); MONO % 7.7 %; NEUT % 78.5 %; PLATELET COUNT 249 K/uL (130-400)
[2016-08-11 06:48] LABS: CALCIUM 8.3 mg/dl (8.5-10.1); CREATININE 0.93 mg/dl (0.60-1.20); MAGNESIUM 2.1 mg/dl (1.8-2.4); POTASSIUM 3.7 mmol/L (3.5-5.1)
[2016-08-11 06:51] LABS: PHOSPHORUS 2.6 mg/dl (2.5-4.9)
[2016-08-11 07:35] VITALS: BP 147/72; PULSE 75; TEMP 36.9; O2SAT 92
--- NOTE | 2016-08-11 08:05 | Orthopedic Progress Note ---
Orthopedic Progress Note Date of Service Aug 11, 2016. Subjective Post OP Day: 2 Reports: feeling well, pain controlled w PO medications, Denies: SOB, calf pain , chest pain, complaints, light headedness, nausea / vomiting Additional Notes: patient slightly confused this am Objective calves soft nontender, N/V intact, capillary refill less than 2 sec., incision C /D/I, A&O x3, toes mobile Date Time Temp Pulse Resp B/P Pulse Ox O2 Delivery O2 Flow Rate FiO2 08/11/16 07:37 Room Air 08/11/16 07:35 36.9 75 16 147/72 92 Room Air 08/11/16 00:15 166/79 08/11/16 00:10 Room Air 08/10/16 22:55 36.9 174/76 08/10/16 22:53 37.8 70 18 184/79 95 Room Air 08/10/16 21:21 73 163/74 08/10/16 15:50 Room Air 08/10/16 15:21 36.8 66 18 155/79 95 Room Air 08/10/16 11:25 36.8 65 16 115/62 95 Room Air 08/10/16 09:56 70 94 Laboratory Results 24 Hours: Test 08/11/16 05:08 White Blood Count 11.20 K/uL Red Blood Count 3.30 M/uL Hemoglobin 10.7 g/dL Hematocrit 30.9 % Mean Corpuscular Volume 93.6 fL Mean Corpuscular Hemoglobin 32.4 pg Mean Corpuscular Hemoglobin Concent 34.6 g/dl Platelet Count 249 K/uL Mean Platelet Volume 9.0 fL Neutrophils (%) (Auto) 78.5 % Lymphocytes (%) (Auto) 12.1 % Monocytes (%) (Auto) 7.7 % Eosinophils (%) (Auto) 1.1 % Basophils (%) (Auto) 0.2 % Neutrophils # (Auto) 8.80 K/uL Lymphocytes # (Auto) 1.35 K/uL Monocytes # (Auto) 0.86 K/uL Eosinophils # (Auto) 0.12 K/uL Basophils # (Auto) 0.02 K/uL Assessment & Plan Assessment: POD 2 s/p Left TKA Plan: PT/OT Planning for OPPT upon dc -patient pleasantly confused this am, will hold oxycodone, increase ultram to 1-2 tabs q4 hours, recheck this afternoon. Discharge Planning Discharge Planning: home with oppt Pain Management: Oxy IR DVT Prophylaxis: TEDs, ASA Therapy: Physical Therapy
--- NOTE | 2016-08-11 08:09 | Discharge Instructions ---
Discharge Instructions Admission Reason for Admission: Left Knee Osteoarthritis Discharge Discharge Diagnosis / Problem: s/p left total knee replacement Discharge Goals Goal(s): Decrease discomfort, Improve function, Increase independence Activity Recommendations Activity Limitations: as noted below Weightbearing Status: Left weightbearing (as tolerated) . Instructions / Follow-Up Instructions / Follow-Up ACTIVITY RECOMMENDATIONS: SELF CARE INSTRUCTIONS AFTER TOTAL KNEE REPLACEMENT A. You may need to continue a physical therapy program after discharge from the hospital. There are several options available to you. Your doctor will assist you in selecting the best one for you. 1. An out-patient facility 2 to 3 times a week for therapy or home therapy. 2. Continue working on all exercises taught to you in the hospital. Your goals should be to increase bending of your knee to 90 degrees and beyond and to fully straighten your knee. B. You may progress at your own pace from walking with a walker or crutches to a cane; then to no assistive devices. C. Make walking a part of your daily routine. Be up as much as comfortable with rest periods throughout the day. Rest with leg elevation is very important. Use the ice wrap frequently for the first 3-4 weeks. D. There are no restrictions on activities. You may ride in a car, shop, participate in french weaver and all social activities. E. Wear the long elastic stockings (BRENT hose) 20 hours a day for 2 weeks after surgery. They can be removed several times a day for laundering and for a bath. F. You may shower, no tub baths until cleared by your doctor. SPECIAL CARE INSTRUCTIONS: VERY IMPORTANT TO READ AND REVIEW A. There are a few signs you need to watch for after you are home. Call [facility] if you notice any of the followin. Increased severe knee pain. Some pain is expected especially when you exercise. 2. Increased swelling in your leg or knee; pain or swelling of the calf muscle in either lower leg. 3. Any fluid drainage from the incision. 4. Shortness of breath or chest pain. B. Please call [facility] at if you have any concerns or questions about your operation or recovery. The doctor or his nurse will return your call promptly. C. You must take antibiotics before dental work, bladder, bowel or other surgery. Your doctor will provide you with a permanent care to carry describing this precaution. IMPORTANT: * REMEMBER TO TAKE ASPIRIN, 81 MG, TWICE DAILY FOR 4 WEEKS UNLESS OTHERWISE DIRECTED. THIS IS YOUR BLOOD THINNER. * HIGH RISK PATIENTS MAY BE PRESCRIBED A STRONGER BLOOD THINNER. THIS WILL BE PROVIDED AT DISCHARGE. * CALL IF INCREASED PAIN, REDNESS, DRAINAGE OR FEVER GREATER THAT 101. * WEAR BRENT HOSE 20 HOURS PER DAY FOR 2 WEEKS. * DERMABOND Prineo- This is a mesh tape dressing that is covered with glue. It should remain in place until the incision is properly healed, usually 10-14 days. This dressing is designed to naturally slough off. You may trim the excess mesh tape as it peels off. Incision may be briefly wet in a shower. Dry immediately by blotting with a clean, dry towel. Do not bath or swim until instructed by your doctor. Do not scratch, rub, or pick at the dressing. Do not apply any topical ointments or lotions until dressing is completely removed and/or instructed by your doctor. There may be a small piece of suture material at one end of your incision. Do not pull or trim this. If it is bothersome or catching on clothing, you may cover it with a band-aid. FOLLOW UP VISIT: If appointment is not already scheduled: Please call [facility] to make a follow-up appointment for 2 weeks after your surgery at . Current Hospital Diet Patient's current hospital diet: Diabetes Type 2 Diet Discharge Diet Recommended Diet: Diabetes Type 2 Diet Procedures Procedures Performed: Left Total Knee Arthroplasty Pending Studies Studies pending at discharge: no Medical Emergencies . Who to Call and When: Medical Emergencies: If at any time you feel your situation is an emergency, please call 911 immediately. . Non-Emergent Contact Non-Emergency issues call your: Primary Care Provider, Surgeon . "Provider Documentation" section prepared by Herberth Henson. VTE Core Measure Inpt VTE Proph given/why not?: Other Anticoagulation (ASA 81mg po bid x 1 month ), Preeti Andrade, SCD's [place] Drug Monitoring Program Search Results: patient reviewed within database, no issues identified
[2016-08-11] MEDS: INSULIN ASPART 100 UNITS/ML 3 ML PEN SC SCH ×4 (09:00→21:02)
[2016-08-11] MEDS: ALPRAZOLAM 0.5 MG TAB PO SCH (09:00)
[2016-08-11] MEDS: FERROUS GLUCONATE 324 MG TAB PO SCH ×3 (09:01→17:45)
[2016-08-11] MEDS: LORATADINE 10 MG TAB PO SCH (09:29)
[2016-08-11] MEDS: METOPROLOL TARTRATE 25 MG TAB PO SCH (09:29)
[2016-08-11] MEDS: SERTRALINE HCL 50 MG TAB PO SCH (09:30)
[2016-08-11] MEDS: PANTOprazole SOD 40 MG TAB PO SCH (09:30)
[2016-08-11] MEDS: MULTIVITAMIN TAB PO SCH (09:30)
[2016-08-11] MEDS: IRBESARTAN 150 MG TAB PO SCH (09:30)
[2016-08-11] MEDS: ASPIRIN 81 MG ECTAB PO SCH ×2 (09:30→21:01)
[2016-08-11] MEDS: FLUTICASONE/SALMETEROL 250/50 (ADVAIR) 14 PUFF/1 INHALER INH SCH ×2 (09:30→21:00)
[2016-08-11] MEDS: DOCUSATE SODIUM 100 MG CAP PO SCH ×2 (09:30→21:01)
--- NOTE | 2016-08-11 09:30 | Progress Note ---
Subjective Date of Service: Aug 11, 2016. Subjective Pt evaluation today including: conversation w/ patient, physical exam, chart review, lab review, review of inpatient medication list Review of Systems Constitutional: No chills, No fatigue, No fever, No problem reported, No see HPI, No sweats, No weakness, No weight loss Eyes: No diplopia, No discharge, No eye pain, No problem reported, No redness, No see HPI, No worsening of vision ENT: No dental problems, No hearing loss, No nasal symptoms, No problem reported, No see HPI, No sore throat, No tinnitus, No trouble swallowing, No unusual epistaxis Respiratory: No cough, No dyspnea at rest, No dyspnea on exertion, No hemoptysis, No problem reported, No see HPI, No shortness of breath, No sputum, No wheezing Cardiac: No PND, No chest pain, No claudication, No edema, No orthopnea, No palpitations, No problem reported, No see HPI Abdomen: No GI bleeding, No constipation, No diarrhea, No nausea, No pain, No problem reported, No see HPI, No vomiting Musculoskeletal: + joint pain Neurologic: No balance problems, No memory loss, No numbness/tingling, No paralysis, No problem reported, No see HPI, No vertigo, No weakness Psychiatric: No anhedonism, No anxiety, No depression symptoms, No insomnia, No problem reported, No see HPI, No substance abuse Heme: No abnormal bleeding/bruising, No clotting problems, No night sweats, No problem reported, No see HPI, No swollen lymph nodes Endo: No excessive thirst, No excessive urination, No fatigue, No problem reported, No see HPI Skin: No bleeding, No color change, No itch, No new/changing skin lesions, No problem reported, No rash, No see HPI Objective Vital Signs Date Time Temp Pulse Resp B/P Pulse Ox O2 Delivery O2 Flow Rate FiO2 08/11/16 07:37 Room Air 08/11/16 07:35 36.9 75 16 147/72 92 Room Air 08/11/16 00:15 166/79 08/11/16 00:10 Room Air 08/10/16 22:55 36.9 174/76 08/10/16 22:53 37.8 70 18 184/79 95 Room Air 08/10/16 21:21 73 163/74 08/10/16 15:50 Room Air 08/10/16 15:21 36.8 66 18 155/79 95 Room Air 08/10/16 11:25 36.8 65 16 115/62 95 Room Air 08/10/16 09:56 70 94 Physical Exam General Appearance: WD/WN, no apparent distress Eyes: normal inspection, EOMI ENT: normal ENT inspection, hearing grossly normal, TMs normal Neck: supple Respiratory/Chest: chest non-tender, lungs clear, normal breath sounds, no respiratory distress, no accessory muscle use Cardiovascular: regular rate, rhythm, no edema, no gallop, no JVD, no murmur Abdomen: normal bowel sounds, non tender, soft, no organomegaly Extremities: normal range of motion, non-tender, normal inspection Neurologic/Psychiatric: c programmer II-XII nml as tested, no motor/sensory deficits, alert, normal mood/affect, oriented x 3 Skin: normal color, warm/dry, no rash Laboratory Results Last 24 Hours Test 08/10/16 12:28 08/10/16 16:43 08/10/16 20:55 08/11/16 05:08 Bedside Glucose 139 mg/dl 122 mg/dl 148 mg/dl White Blood Count 11.20 K/uL Red Blood Count 3.30 M/uL Hemoglobin 10.7 g/dL Hematocrit 30.9 % Mean Corpuscular Volume 93.6 fL Mean Corpuscular Hemoglobin 32.4 pg Mean Corpuscular Hemoglobin Concent 34.6 g/dl Platelet Count 249 K/uL Mean Platelet Volume 9.0 fL Neutrophils (%) (Auto) 78.5 % Lymphocytes (%) (Auto) 12.1 % Monocytes (%) (Auto) 7.7 % Eosinophils (%) (Auto) 1.1 % Basophils (%) (Auto) 0.2 % Neutrophils # (Auto) 8.80 K/uL Lymphocytes # (Auto) 1.35 K/uL Monocytes # (Auto) 0.86 K/uL Eosinophils # (Auto) 0.12 K/uL Basophils # (Auto) 0.02 K/uL RDW Standard Deviation 44.7 fL RDW Coefficient of Variation 13.1 % Immature Granulocyte % (Auto) 0.4 % Immature Granulocyte # (Auto) 0.05 K/uL Sodium Level 139 mmol/L Potassium Level 3.7 mmol/L Chloride Level 106 mmol/L Carbon Dioxide Level 25 mmol/L Anion Gap 8.0 mmol/L Blood Urea Nitrogen 22 mg/dl Creatinine 0.93 mg/dl Est Creatinine Clear Calc Drug Dose 53.7 ml/min Estimated GFR () 70.7 Estimated GFR (Non- 61.0 BUN/Creatinine Ratio 24.0 Random Glucose 120 mg/dl Calcium Level 8.3 mg/dl Phosphorus Level 2.6 mg/dl Magnesium Level 2.1 mg/dl Total Bilirubin 0.8 mg/dl Aspartate Amino Transf (AST/SGOT) 49 U/L Alanine Aminotransferase (ALT/SGPT) 41 U/L Alkaline Phosphatase 105 U/L Total Protein 6.5 gm/dl Albumin 3.3 gm/dl Globulin 3.2 gm/dl Albumin/Globulin Ratio 1.0 Test 08/11/16 08:31 Bedside Glucose 135 mg/dl Assessment and Plan This is a 71 yo F with PMHx DM II, HTN, paroxsysmal atrial fibrillation, pulmonary granulomas, hypothyroidism, asthma, spinal stenosis of the lubar spine , dyslipidemia, s/p left total knee replacement completed 08/09/[address] Palmer. patient was slightly confused this morning which can be multifactorial; pain meds, sun down currently improved S/p Left TKA by Dr. Palmer on 08/09/16 Medically clear for discharge on her pre admission meds DVT prophylaxis as per primary team D/W PT/OT, she will need SNF - continue pain management - Bowel regimen with miralax, senna, colace, MOM prn - PT/OT and anticoagulation (asa 81 mg BID) per the primary team - Continue elevation and ice - Received dexamethasone 8 mg prior to surgery HTN - Cont home medications metoprolol / irbesartan DM II - ISS with accuchecks ACHS Depression/Anxiety - Cont sertraline 25 mg QAM - xanax 0.25 mg for anxiety Q8H prn Lung granulomas Asthma - Follows with Dr. 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
[2016-08-11] MEDS: TRAMADOL HCL 50 MG TAB PO PRN (10:30)
[2016-08-11 14:55] VITALS: BP 120/68; PULSE 65; TEMP 36.9; O2SAT 94
[2016-08-11] MEDS ORDERED: ASPEC81 PO (16:57)
[2016-08-11] MEDS ORDERED: ULT50X PO (16:57)
[2016-08-11] MEDS ORDERED: ACET-1138 PO (16:57)
[2016-08-11] MEDS ORDERED: SNK PO (16:57)
[2016-08-11 20:58] VITALS: BP 158/73; PULSE 75
[2016-08-11] MEDS: METOPROLOL TARTRATE 50 MG TAB PO SCH (21:01)
[2016-08-11] MEDS: SENNA 8.6 MG TAB PO SCH (21:01)
[2016-08-11 23:02] VITALS: BP 169/72; PULSE 70; TEMP 37.5; O2SAT 94
[2016-08-12] MEDS: CHECK SCOPOLAMINE PATCH PLACEMENT SCH ×2 (00:10→07:34)
[2016-08-12] MEDS: TRAMADOL HCL 50 MG TAB PO PRN (00:20)
[2016-08-12] MEDS: LEVOTHYROXINE 125 MCG TAB PO SCH (06:01)
[2016-08-12] MEDS: ACETAMINOPHEN 500 MG TAB PO SCH ×2 (06:02→13:39)
[2016-08-12 07:50] VITALS: BP 151/58; PULSE 71; TEMP 36.9; O2SAT 94
[2016-08-12 08:00] VITALS: O2SAT 94
--- NOTE | 2016-08-12 08:55 | Orthopedic Progress Note ---
Orthopedic Progress Note Date of Service Aug 12, 2016. Subjective Post OP Day: 3 Additional Notes: C/O KNEE PAIN SINCE OFF OXY ALERET NO CONFUSION Objective calves soft nontender, incision C/D/I, toes mobile MODERATE BRUISING Date Time Temp Pulse Resp B/P Pulse Ox O2 Delivery O2 Flow Rate FiO2 08/12/16 07:50 36.9 71 16 151/58 94 Room Air 08/12/16 00:05 Room Air 08/11/16 23:02 37.5 70 16 169/72 94 Room Air 08/11/16 20:58 75 158/73 08/11/16 15:15 Room Air 08/11/16 14:55 36.9 65 16 120/68 94 Room Air Assessment & Plan Assessment: POD 3 s/p Left TKA Plan: PT/OT Planning for OPPT upon dc -N CONFUSION TODAY PROBABLE DC HOME ON HYDROCODONE AND OPPT Inhouse Planning Pain Management: Morphine, Oxy IR, Vicodin DVT Prophylaxis: TEDs, SCDs, ASA Discharge Planning Discharge Planning: home with oppt Pain Management: Oxy IR DVT Prophylaxis: TEDs, ASA Therapy: Physical Therapy
[2016-08-12] MEDS: ALPRAZOLAM 0.5 MG TAB PO SCH ×2 (09:00→09:17)
[2016-08-12] MEDS: MULTIVITAMIN TAB PO SCH (09:02)
[2016-08-12] MEDS: FLUTICASONE/SALMETEROL 250/50 (ADVAIR) 14 PUFF/1 INHALER INH SCH (09:02)
[2016-08-12] MEDS: LORATADINE 10 MG TAB PO SCH (09:03)
[2016-08-12] MEDS: IRBESARTAN 150 MG TAB PO SCH (09:03)
[2016-08-12] MEDS: PANTOprazole SOD 40 MG TAB PO SCH (09:03)
[2016-08-12] MEDS: FERROUS GLUCONATE 324 MG TAB PO SCH ×2 (09:04→12:18)
[2016-08-12] MEDS: DOCUSATE SODIUM 100 MG CAP PO SCH (09:04)
[2016-08-12] MEDS: METOPROLOL TARTRATE 25 MG TAB PO SCH (09:04)
[2016-08-12] MEDS: ASPIRIN 81 MG ECTAB PO SCH (09:04)
[2016-08-12] MEDS: SERTRALINE HCL 50 MG TAB PO SCH (09:05)
[2016-08-12] MEDS ORDERED: RXC5 PO (09:08)
[2016-08-12] MEDS: INSULIN ASPART 100 UNITS/ML 3 ML PEN SC SCH ×2 (09:41→13:16)
[2016-08-12] MEDS ORDERED: SCOPOLAMINE 1.5 MG TDSY TD SCH (10:00)
--- NOTE | 2016-08-12 11:31 | Progress Note ---
Subjective Date of Service: Aug 12, 2016. Subjective Pt evaluation today including: conversation w/ patient, lab review, review of studies, review of inpatient medication list Review of Systems Constitutional: No chills, No fatigue, No fever, No problem reported, No see HPI, No sweats, No weakness, No weight loss Eyes: No diplopia, No discharge, No eye pain, No problem reported, No redness, No see HPI, No worsening of vision ENT: No dental problems, No hearing loss, No nasal symptoms, No problem reported, No see HPI, No sore throat, No tinnitus, No trouble swallowing, No unusual epistaxis Respiratory: No cough, No dyspnea at rest, No dyspnea on exertion, No hemoptysis, No problem reported, No see HPI, No shortness of breath, No sputum, No wheezing Cardiac: No PND, No chest pain, No claudication, No edema, No orthopnea, No palpitations, No problem reported, No see HPI Abdomen: No GI bleeding, No constipation, No diarrhea, No nausea, No pain, No problem reported, No see HPI, No vomiting Musculoskeletal: + joint pain Female : No abnormal vaginal bleeding, No dysuria, No hematuria, No incontinence, No problem reported, No see HPI, No urinary frequency, No vaginal discharge Neurologic: No balance problems, No memory loss, No numbness/tingling, No paralysis, No problem reported, No see HPI, No vertigo, No weakness Psychiatric: No anhedonism, No anxiety, No depression symptoms, No insomnia, No problem reported, No see HPI, No substance abuse Heme: No abnormal bleeding/bruising, No clotting problems, No night sweats, No problem reported, No see HPI, No swollen lymph nodes Endo: No excessive thirst, No excessive urination, No fatigue, No problem reported, No see HPI Skin: No bleeding, No color change, No itch, No new/changing skin lesions, No problem reported, No rash, No see HPI Objective Vital Signs Date Time Temp Pulse Resp B/P Pulse Ox O2 Delivery O2 Flow Rate FiO2 08/12/16 08:00 94 Room Air 08/12/16 07:50 36.9 71 16 151/58 94 Room Air 08/12/16 00:05 Room Air 08/11/16 23:02 37.5 70 16 169/72 94 Room Air 2/17/17 20:58 75 158/73 2/17/17 15:15 Room Air 08/11/16 14:55 36.9 65 16 120/68 94 Room Air Physical Exam General Appearance: WD/WN, no apparent distress Eyes: normal inspection, EOMI ENT: normal ENT inspection, hearing grossly normal, TMs normal Neck: supple Respiratory/Chest: chest non-tender, lungs clear, normal breath sounds, no respiratory distress, no accessory muscle use Cardiovascular: regular rate, rhythm, no edema, no gallop, no JVD, no murmur Abdomen: normal bowel sounds, non tender, soft, no organomegaly, no pulsatile mass Extremities: normal range of motion, + pertinent finding (left knee pain) Neurologic/Psychiatric: underwriting account representative II-XII nml as tested, no motor/sensory deficits, alert, normal mood/affect, oriented x 3 Laboratory Results Last 24 Hours Test 08/11/16 12:05 08/11/16 16:51 08/11/16 20:34 08/12/16 08:36 Bedside Glucose 151 mg/dl 125 mg/dl 148 mg/dl 117 mg/dl Assessment and Plan This is a 71 yo F with PMHx DM II, HTN, paroxsysmal atrial fibrillation, pulmonary granulomas, hypothyroidism, asthma, spinal stenosis of the lubar spine , dyslipidemia, s/p left total knee replacement completed 08/09/[address] Palmer. S/p Left TKA by Dr. Palmer on 08/09/16 Medically clear for discharge on her pre admission meds, blood pressure is border line elevated, needs to be adjusted as an out patient, after she gets back to her stable base line and pain is under controlled. DVT prophylaxis as per primary team D/W PT/OT, she will need SNF - continue pain management - Bowel regimen with miralax, senna, colace, MOM prn - PT/OT and anticoagulation (asa 81 mg BID) per the primary team - Continue elevation and ice - Received dexamethasone 8 mg prior to surgery HTN - Cont home medications metoprolol / irbesartan, monitor as an out patient and adjust as needed after pain control DM II - ISS with accuchecks ACHS Depression/Anxiety - Cont sertraline 25 mg QAM - xanax 0.25 mg for anxiety Q8H prn Lung granulomas Asthma - Follows with Dr. 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
[2016-08-12 13:33] VITALS: BP 151/58; PULSE 71; TEMP 36.9; O2SAT 94
--- NOTE | 2016-08-13 19:17 | Discharge Summary ---
Orthopedic Discharge Summary Admission Date/Reason Aug 09, 2016 at 07:00 Left Knee Osteoarthritis. Discharge Date/Disposition Aug 12, 2016 Home with services Diagnosis Principal Diagnosis: Left knee arthritis Secondary Diagnoses/Problems: (1) Asthma (2) Diabetes mellitus, type II (3) Dyslipidemia (4) GERD (gastroesophageal reflux disease) (5) Hypertension (6) Hypothyroidism (7) Paroxysmal atrial fibrillation (8) Pulmonary nodules (9) Spinal stenosis of lumbar region (10) Statin intolerance Procedure(s) Performed PROCEDURE: Total knee arthroplasty utilizing Aden and Nephew total knee arthroplasty nonblock patient matched knee with a Journey II total knee implant. Femur size 3, tibia size 4, poly size 9 and patella size 32 oval. Consultations [facility]- medical management Medication Reconciliation New Medications: Oxycodone HCl (Oxycodone HCl) 5 Mg Tab 1 TAB PO Q6H, #60 Acetaminophen (Tylenol Extra Strength) 500 Mg Tab 1000 MG PO Q8 for 14 Days, #84 TAB Aspirin (Aspirin EC Low Dose) 81 Mg Ectab 81 MG PO BID for 30 Days After 30 days, you may stop taking the Aspirin twice daily and resume your once daily dosing. Senna (Senna Lax) 8.6 Mg Tab 17.2 MG PO HS, #30 TAB Tramadol HCl (Tramadol HCl) 50 Mg Tab 50-100 MG PO Q4H PRN for Pain, #60 TAB Continued Medications: Albuterol (Proair Hfa) Aers 2 PUFFS INH Q6H PRN for SOB/Wheezing Alprazolam (Xanax) 0.5 Mg Tab 0.25 MG PO QAM, TAB Dicyclomine Hcl (Bentyl) 10 Mg Cap 10 MG PO QID PRN for RN, CAP Diphenhydramine Hcl (Benadryl) 25 Mg Cap 25 MG PO Q4H PRN for ALLERGIC REACTION, CAP Fluticasone Prop/Salmeterol (Advair Diskus 250/50 60 Dose) 1 Ea Aerp 1 PUFF INH BID, INHALER Furosemide (Lasix) 20 Mg Tab 20 MG PO DAILY PRN for edema, TAB Hydrochlorothiazide (Hydrochlorothiazide) 25 Mg Tab 25 MG PO QAM, #90 Irbesartan (Avapro) 150 Mg Tab 150 MG PO QAM Iron-Vitamin C (Vitron-C) 1 Tab Tab 1 TAB PO HS Levothyroxine Sodium (Levothyroxine Sodium) 125 Mcg Tab 1 TAB PO QAM for 90 Days, #90 TAB 3 Refills Loratadine (Claritin) 10 Mg Tab 10 MG PO DAILY PRN, TAB Metformin HCl (Metformin HCl) 500 Mg Tab 500 MG PO QAM, #90 Metoprolol Tartrate (Lopressor) (Lopressor) 50 Mg Tab 75 MG PO QAM, TAB Metoprolol Tartrate (Lopressor) (Lopressor) 50 Mg Tab 50 MG PO QPM, TAB Ondansetron Hcl (Zofran) 4 Mg Tab 4 MG PO PRN PRN for Nausea, TAB Sertraline (Zoloft) 25 Mg Tab 25 MG PO QAM, TAB Triamcinolone Acet (Aristocort 0.1%) 90 Appln/30 Gm Cr 1 APPLN TD UD, #60 [Vitamin B12] () 1 DOSE INJ MONTHLYU THIRD WEEK OF MONTH Discontinued Medications: Aspirin (Aspirin) 81 Mg Tab 81 MG PO HS Admission Physical Exam As per Admitting History & Physical. Hospital Course Patient was a same day admission after undergoing a successful left TKA. she tolerated the procedure well. Post-operatively, her activity was progressed and well tolerated. She did experience post op confusion which was improved by switching her pain medications. Please refer to daily progress notes and PT notes for complete details. After exam on 08/12/16, patient felt to be stable for discharge home with home PT. Patient will f/u in the office in 2 weeks for further evaluation including x-rays and incision check, sooner if having any issues or concerns. Below are pertinent labs/studies during their hospital stay: Last Resulted CBC 08/11/16 05:08 Red Blood Count 3.30, Mean Corpuscular Volume 93.6, Mean Corpuscular Hemoglobin 32.4, Mean Corpuscular Hemoglobin Concent 34.6, Mean Platelet Volume 9.0, Neutrophils (%) (Auto) 78.5, Lymphocytes (%) (Auto) 12.1, Monocytes (%) (Auto) 7.7, Eosinophils (%) (Auto) 1.1, Basophils (%) (Auto) 0.2, Neutrophils # (Auto) 8.80, Lymphocytes # (Auto) 1.35, Monocytes # (Auto) 0.86, Eosinophils # (Auto) 0.12, Basophils # (Auto) 0.02 Last Resulted BMP 08/11/16 05:08 Last Vital Signs Documentation Date Time Temp Pulse Resp B/P Pulse Ox O2 Delivery O2 Flow Rate FiO2 08/12/16 13:33 36.9 71 16 94 Room Air 08/12/16 07:50 151/58 08/09/16 15:32 2.0 Discharge Instructions ACTIVITY RECOMMENDATIONS: SELF CARE INSTRUCTIONS AFTER TOTAL KNEE REPLACEMENT A. You may need to continue a physical therapy program after discharge from the hospital. There are several options available to you. Your doctor will assist you in selecting the best one for you. 1. An out-patient facility 2 to 3 times a week for therapy or home therapy. 2. Continue working on all exercises taught to you in the hospital. Your goals should be to increase bending of your knee to 90 degrees and beyond and to fully straighten your knee. B. You may progress at your own pace from walking with a walker or crutches to a cane; then to no assistive devices. C. Make walking a part of your daily routine. Be up as much as comfortable with rest periods throughout the day. Rest with leg elevation is very important. Use the ice wrap frequently for the first 3-4 weeks. D. There are no restrictions on activities. You may ride in a car, shop, participate in sausage stringer and all social activities. E. Wear the long elastic stockings (BRENT hose) 20 hours a day for 2 weeks after surgery. They can be removed several times a day for laundering and for a bath. F. You may shower, no tub baths until cleared by your doctor. SPECIAL CARE INSTRUCTIONS: VERY IMPORTANT TO READ AND REVIEW A. There are a few signs you need to watch for after you are home. Call [facility] [place] if you notice any of the followin. Increased severe knee pain. Some pain is expected especially when you exercise. 2. Increased swelling in your leg or knee; pain or swelling of the calf muscle in either lower leg. 3. Any fluid drainage from the incision. 4. Shortness of breath or chest pain. B. Please call [facility] at if you have any concerns or questions about your operation or recovery. The doctor or his nurse will return your call promptly. C. You must take antibiotics before dental work, bladder, bowel or other surgery. Your doctor will provide you with a permanent care to carry describing this precaution. IMPORTANT: * REMEMBER TO TAKE ASPIRIN, 81 MG, TWICE DAILY FOR 4 WEEKS UNLESS OTHERWISE DIRECTED. THIS IS YOUR BLOOD THINNER. * HIGH RISK PATIENTS MAY BE PRESCRIBED A STRONGER BLOOD THINNER. THIS WILL BE PROVIDED AT DISCHARGE. * CALL IF INCREASED PAIN, REDNESS, DRAINAGE OR FEVER GREATER THAT 101. * WEAR BRENT HOSE 20 HOURS PER DAY FOR 2 WEEKS. * DERMABOND Prineo- This is a mesh tape dressing that is covered with glue. It should remain in place until the incision is properly healed, usually 10-14 days. This dressing is designed to naturally slough off. You may trim the excess mesh tape as it peels off. Incision may be briefly wet in a shower. Dry immediately by blotting with a clean, dry towel. Do not bath or swim until instructed by your doctor. Do not scratch, rub, or pick at the dressing. Do not apply any topical ointments or lotions until dressing is completely removed and/or instructed by your doctor. There may be a small piece of suture material at one end of your incision. Do not pull or trim this. If it is bothersome or catching on clothing, you may cover it with a band-aid. FOLLOW UP VISIT: If appointment is not already scheduled: Please call [facility] [place] to make a follow-up appointment for 2 weeks after your surgery at .
== END 2016-08-12 14:53 | disposition home health service (06) | DRG 470 ==
LOC: ENRESERVDT → ENRESERVTM → C.ACU 05:11 → C.MSW 07:00
PROVIDERS: ADMIT Orthopaedic Surgery; ATTEND Orthopaedic Surgery
PROC: 0SRD0J9 Replacement of Left Knee Joint with Synthetic Substitute, Cemented, Open Approach (ICD-10-PCS; principal; 2016-08-09 07:15)
DX: M17.12 Unilateral primary osteoarthritis, left knee (principal); Z68.41 Body mass index [BMI] 40.0-44.9, adult; M48.06 Spinal stenosis, lumbar region; I48.0 Paroxysmal atrial fibrillation; E11.9 Type 2 diabetes mellitus without complications; E03.9 Hypothyroidism, unspecified; I10 Essential (primary) hypertension; J45.909 Unspecified asthma, uncomplicated; F32.9 Major depressive disorder, single episode, unspecified; F41.9 Anxiety disorder, unspecified; E78.5 Hyperlipidemia, unspecified; K21.9 Gastro-esophageal reflux disease without esophagitis; Z87.891 Personal history of nicotine dependence; Z83.3 Family history of diabetes mellitus; Z82.49 Family history of ischemic heart disease and other diseases of the circulatory system; E66.9 Obesity, unspecified

== ENCOUNTER → 2016-10-23 | Outpatient (CLI) | payer OTHER ==
[~2016-10-23] MED LIST changes: +ACET-1138 PO; +ASPEC81 PO; -ASPI81TA82 PO; -BND25 PO; +DIPH25CA5 PO; -LEVO125T4 PO; +LEVO125T5 PO; +RXC5 PO; +SNK PO; +ULT50X PO
--- NOTE | 2016-10-23 13:07 | DIAGNOSTIC IMAGING REPORT ---
CHEST CT WITHOUT CONTRAST CT DOSE: 513.54 mGycm HISTORY: Pulmonary nodules R91.8 Multiple lung nodules on Coct chest no contrast in [id number] TECHNIQUE: Multiaxial CT images of the chest were performed without contrast. COMPARISON: 04/07/2016 FINDINGS: Several small parenchymal nodules primarily in the mid to lower lung regions bilaterally. These remain generally stable with only subtle variation in size. Bulk of this variation may be on a technical basis. Area one nodule has increased from 3 to 5 mm left lower lobe transaxial image 32. There is minimal atelectatic change posterior aspect right midlung region. No significant mediastinal or hilar adenopathy. IMPRESSION: Stable to only minimally progressive nodularity at one site involving the left lower lobe. A 6-12 month follow-up is suggested. Electronically signed by: Herberth Dugan M.D. 10/23/2016 1:05 PM Dictated Date/Time: 10/23/2016 12:58 PM
== END | disposition home or self-care (01) ==
LOC: C.CTS 12:43
PROVIDERS: ATTEND Internal Medicine Pulmonary Disease
DX: R91.8 Other nonspecific abnormal finding of lung field (principal)

== ENCOUNTER → 2017-01-08 | Outpatient (CLI) | payer OTHER ==
[~2017-01-08] VITALS: Ht 149.9 cm; Wt 91.2 kg
[~2017-01-08] MED LIST changes: +BND25 PO; -DIPH25CA5 PO; +LEVO125T4 PO; -LEVO125T5 PO
[2017-01-08 15:29] VITALS: BP 182/76; PULSE 73; Ht 149.9 cm; Wt 91.2 kg
== END | disposition home or self-care (01) ==
LOC: C.NEUR 14:40
PROVIDERS: ATTEND Physician Assistant
DX: R91.8 Other nonspecific abnormal finding of lung field (principal); J45.909 Unspecified asthma, uncomplicated; G47.30 Sleep apnea, unspecified

== ENCOUNTER → 2017-04-30 | Outpatient (CLI) | payer OTHER ==
[~2017-04-30] MED LIST changes: -BND25 PO; +DIPH25CA5 PO; -LEVO125T4 PO; +LEVO125T5 PO
--- NOTE | 2017-04-30 12:27 | DIAGNOSTIC IMAGING REPORT ---
(CHEST) THORAX WITHOUT CT DOSE: 454.61 mGycm HISTORY: Follow-up MULTIPLE LUNG NODULES TECHNIQUE: Multiaxial CT images of the chest were performed without contrast. A dose lowering technique was utilized adhering to the principles of ALARA. COMPARISON: Chest CT 10/23/2016. Chest CT 08/17/2014. FINDINGS: The central airways remain patent. No pleural effusions. No pneumothorax. There again noted multiple bilateral subcentimeter pulmonary nodules. Dominant nodule within the left lower lobe measures 7 mm and dominant nodule within the right middle lobe measures 6 mm. These are nonspecific changes in size or number compared to the 2014 examination. Therefore, these demonstrate greater than 2 year stability. No new focal lung consolidations. Visualized liver and spleen are unremarkable. Normal adrenal glands. Cholecystectomy. No mediastinal or hilar lymphadenopathy. Normal caliber thoracic aorta. Mild calcified plaque within the coronary arteries. IMPRESSION: No significant change in multiple subcentimeter bilateral pulmonary nodules. These demonstrate greater than 2 year stability and are considered to be benign. Electronically signed by: Norm Meraz M.D. 04/30/2017 12:26 PM Dictated Date/Time: 04/30/2017 12:17 PM
== END | disposition home or self-care (01) ==
LOC: C.CTS 11:00
PROVIDERS: ATTEND Physician Assistant
DX: R91.8 Other nonspecific abnormal finding of lung field (principal)

== ENCOUNTER → 2017-10-17 | Outpatient (CLI) | payer OTHER ==
[~2017-10-17] MED LIST changes: -ASPEC81 PO; +ASPI-320 PO
--- NOTE | 2017-10-17 15:26 | DIAGNOSTIC IMAGING REPORT ---
CHEST 2 VIEWS ROUTINE CLINICAL HISTORY: COUGH COMPARISON STUDY: 06/14/2015 FINDINGS: The cardiac and mediastinal contours are normal. There is no evidence of focal pulmonary consolidation. There is no evidence of failure. No pleural effusions are visualized.[ IMPRESSION: No active disease in the chest. Electronically signed by: Ray Manley M.D. 10/17/2017 3:25 PM Dictated Date/Time: 10/17/2017 3:24 PM
== END | disposition home or self-care (01) ==
LOC: C.RAD1850 15:16
PROVIDERS: ATTEND Physician Assistant
DX: R05 Cough (principal)

== ENCOUNTER 2022-12-13 09:21 | Inpatient (IN) ==
--- NOTE | 2022-12-13 10:04 | Emergency Department Note ---
Impression & Plan Abdominal pain, Weakness, Vomiting ED Provider Note NAME: LINDA CHATMAN AGE: 77 SEX: F : 1945 ARRIVES VIA: Walk-In INFORMANT: Patient ED PROVIDER(S): Aflonso Hobbs DO CHIEF COMPLAINT: Abdominal pain, vomiting and headache HPI: Patient is a 77-year-old female with a past medical history of asthma, diabetes, paroxysmal A-fib, GERD and appendectomy that presents the ER for right mid abdominal pain which started last night associated with vomiting. She also admits to right-sided headache. No change in vision. Family notes that she has been a little confused. Just started on Keflex yesterday for possible UTI. She denies any chest pain or shortness of breath. No dysuria, urgency, or frequency. No other exacerbating or remitting factors at this time. No neck stiffness. PAST MEDICAL HISTORY:See Below PAST SURGICAL HISTORY:See Below FAMILY HISTORY:See Below SOCIAL HISTORY:See Below HOME MEDICATIONS:See Below ALLERGIES:See Below VITALS:See Below PHYSICAL EXAMINATION: GENERAL: Sitting up in bed, alert, well appearing, well nourished, no distress, non-toxic EYE EXAM: normal conjunctiva. PERRL and EOM's intact. OROPHARYNX: mucous membranes are moist LUNGS: Clear to auscultation. Normal chest wall mechanics HEART: no murmurs, S1 normal and S2 normal ABDOMEN: abdomen soft, non-tender, normo-active bowel sounds, no masses, no rebound or guarding. BACK: Back is symmetrical on inspection and there is no deformity, no midline tenderness, no CVA tenderness. SKIN: no rashes and no bruising UPPER EXTREMITIES: upper extremities are grossly normal. LOWER EXTREMITIES: No pitting edema. NEURO EXAM: Normal sensorium, cranial nerves II-XII intact, normal speech, no weakness of arms, no weakness of legs. No drift. Finger to nose intact. Gross sensation intact. MEDICAL DECISION MAKING: Patient is a 77-year-old female who presents ER for above-stated complaint. IV was established blood work was obtained. External records were reviewed. Labs show mild leukocytosis of 12,000. BMP with mild hyponatremia 133. Lactate was normal. LFTs bilirubin was unremarkable. Troponin was negative. Lipase was normal. Patient was febrile and slightly tachycardic. With a history of slightly confusion belly pain and vomiting although a negative CT of the belly and head did recommend admission. UA did have nitrites leuks although contaminated with epithelial cells. She has been on antibiotics for 24 hours which would give you a sterile urine/no whites. Patient was given 2 g of Rocephin. Did discuss with the hospitalist for further evaluation management and treatment. Discussed with the hospitalist for further evaluation management treatment. Triage Nursing notes reviewed. Limited review of prior medical records performed Vital Signs: reviewed and remarkable for no significant abnormalities Differential diagnosis: Differential diagnoses includes but is not limited to gastritis, peptic ulcer disease, GERD, gallbladder disease, pancreatitis, small bowel obstruction, appendicitis, diverticulitis, hernia, urinary tract infection, torsion, perforation, trauma, infectious. ER treatment provided: See below Diagnostics interpreted by me include EKG and cardiac monitoring as listed below: -Cardiac Monitoring: An order was placed for continuous cardiac monitoring. The monitor shows a rate of 80 with sinus rhythm. -ECG: none -Laboratory studies:Interpreted by me as stated above in MDM and shown below. Imaging studies: Xrays: As interpreted by me: Portable AP upright 1 view of the chest shows no focal infiltrate CTs show: CT head and abdomen pelvis were negative per radiology Consultation(s): As described in MDM Procedures:none Critical Care: None Past Med/Surg History Medical History (Updated 12/13/22 @ 13:38 by Alfonso Hobbs DO) Asthma Diabetes mellitus, type II Dyslipidemia GERD (gastroesophageal reflux disease) Hypertension Hypothyroidism Paroxysmal atrial fibrillation Pulmonary nodules Spinal stenosis of lumbar region Statin intolerance Surgical History (Updated 12/13/22 @ 13:28 by Olamide Byrne PA-C) H/O shoulder surgery Hx of cholecystectomy Previous back surgery S/P TKR (total knee replacement) Status post appendectomy Status post tonsillectomy Family History (Updated 12/13/22 @ 13:31 by Olamide Byrne PA-C) Mother Coronary heart disease CHF (congestive heart failure) Father Stroke Daughter Hypertension Other Lung cancer Social History (Updated 12/13/22 @ 13:29 by Olamide Byrne PA-C) Smoking Status: Former smoker packs per day: 0.5; Smoking End Date: 13 years; Do You Dip or Chew Tobacco: No; Tobacco Cessation Education Requested by Patient: No Hx Alcohol Use: No Hx Substance Use: No Preferred Language: Malay Communication Ability: Effective marital status: / Current Living Situation: Family Current Living Situation Comment: Lives with daughter Feels Safe at Home: Yes Allergies Allergies Allergy/AdvReac Type Severity Reaction Status Date / Time Iodinated Contrast Media Allergy Intermediate HIVES Verified 12/11/19 10:20 nitrofurantoin Allergy Mild RASH Verified 12/11/19 10:20 latex Allergy Unknown LOCAL SKIN Verified 12/11/19 10:20 IRRITATION lidocaine Allergy Unknown lidocaine Verified 12/11/19 10:20 patch-skin red,hot flushed feeling Bszipzr-WKZ-LcB Reductase Allergy Unknown LEG CRAMPS Unverified 12/11/19 10:20 Inhibitor [Hnrrtso-Voo-Kih Reductase Inhibitor] codeine AdvReac Mild N&V Verified 12/11/19 10:20 propoxyphene AdvReac Mild NAUSEA AND Verified 12/11/19 10:20 VOMITING Darvocet-N 100 TABS Allergy Uncoded 12/11/19 10:20 Macrobid Allergy Uncoded 12/11/19 10:20 Home Meds Home Medications Medication Instructions Recorded Confirmed aspirin 81 mg tablet 81 mg PO .TAKE 1 TABLET DAILY. 02/12/19 12/13/22 irbesartan 150 mg tablet 150 mg PO .TAKE 1 TABLET DAILY. 02/12/19 12/13/22 metoprolol tartrate 50 mg tablet 75 mg PO DAILY 02/12/19 12/13/22 albuterol sulfate 90 mcg/actuation 1 puff inhalation ONCE PRN 06/12/19 12/13/22 aerosol inhaler Wheezing #1 g rosuvastatin 10 mg tablet 10 mg PO DAILY 06/12/19 12/13/22 ondansetron HCl 4 mg tablet 4 mg PO Q6H 12/11/19 12/13/22 (Zofran) polyethylene glycol 3350 17 gram 17 gm PO DAILY 12/11/19 12/13/22 oral powder packet (Miralax) sertraline 100 mg tablet 100 mg PO DAILY 12/11/19 12/13/22 alprazolam 0.25 mg tablet 0.5 mg PO BID PRN anxiety 08/09/21 12/13/22 acetaminophen 650 mg 650 mg PO DAILY PRN pain 12/13/22 12/13/22 tablet,extended release cyanocobalamin (vitamin B-12) 1,000 mcg IM MONTHLY 12/13/22 12/13/22 1,000 mcg/mL injection kit dulaglutide 0.75 mg/0.5 mL 0.75 mg subcut WK 12/13/22 12/13/22 subcutaneous pen injector (Joshua) ezetimibe 10 mg tablet 10 mg PO DAILY 12/13/22 12/13/22 fluticasone 250 mcg-salmeterol 50 1 inh inhalation AMPM 12/13/22 12/13/22 mcg/dose blistr powdr for inhalation fluticasone propionate 50 1 spray intranasal DAILY 12/13/22 12/13/22 mcg/actuation nasal spray,suspension hydrochlorothiazide 12.5 mg tablet 12.5 mg PO DAILY 12/13/22 12/13/22 iron-vitamin B complex with C 1 tab PO DAILY 12/13/22 12/13/22 tablet levothyroxine 150 mcg tablet 150 mcg PO DAILY 12/13/22 12/13/22 loratadine 10 mg tablet 10 mg PO DAILY 12/13/22 12/13/22 metoprolol tartrate 50 mg tablet 50 mg PO HS 12/13/22 12/13/22 tiotropium bromide 18 mcg capsule 2 cap inhalation DAILY 12/13/22 12/13/22 with inhalation device (Spiriva with HandiHaler) Results & Data (ED) Vital Signs Vital Signs - 24 hr 12/13/22 09:29 12/13/22 10:21 12/13/22 10:33 Temperature 37.7 C H Temperature Source Oral Pulse Rate 88 80 Pulse Rate from SpO2 Sensor Respiratory Rate 20 Respiratory Effort / Characteristics Non-Labored Spontaneous Respiratory Depth Normal Respiratory Pattern Regular Blood Pressure 113/66 Blood Pressure Mean 81 Pulse Oximetry 92 91 Oxygen Delivery Method Room Air Room Air Sepsis Recent Fever Within 48 Hours No Sepsis New/Unexplained Change in Mental Status N/A Sepsis Action Taken by Nursing No Action Required 12/13/22 11:00 12/13/22 11:00 12/13/22 11:10 Temperature Temperature Source Pulse Rate 80 78 Pulse Rate from SpO2 Sensor 80 77 Respiratory Rate 16 22 Respiratory Effort / Characteristics Respiratory Depth Respiratory Pattern Blood Pressure 122/59 L Blood Pressure Mean 80 Pulse Oximetry 91 92 Oxygen Delivery Method Room Air Room Air Sepsis Recent Fever Within 48 Hours Sepsis New/Unexplained Change in Mental Status Sepsis Action Taken by Nursing 12/13/22 12:38 12/13/22 11:30 12/13/22 12:00 Temperature 37.9 C H Temperature Source Oral Pulse Rate 77 Pulse Rate from SpO2 Sensor 77 Respiratory Rate Respiratory Effort / Characteristics Respiratory Depth Respiratory Pattern Blood Pressure 120/57 L Blood Pressure Mean 78 Pulse Oximetry 90 Oxygen Delivery Method Room Air Sepsis Recent Fever Within 48 Hours Sepsis New/Unexplained Change in Mental Status Sepsis Action Taken by Nursing 12/13/22 12:00 12/13/22 12:30 Temperature Temperature Source Pulse Rate 79 77 Pulse Rate from SpO2 Sensor 75 77 Respiratory Rate 20 Respiratory Effort / Characteristics Respiratory Depth Respiratory Pattern Blood Pressure Blood Pressure Mean Pulse Oximetry 92 92 Oxygen Delivery Method Room Air Room Air Sepsis Recent Fever Within 48 Hours Sepsis New/Unexplained Change in Mental Status Sepsis Action Taken by Nursing Laboratory Data 12/13/22 10:32 12/13/22 10:32 Lab Results 12/13/22 12/13/22 12/13/22 Range/Units 10:32 10:32 10:32 WBC 12.05 H (4.8-10.8) K/ul RBC 3.95 L (4.20-5.40) M/uL Hgb 13.0 (12.0-16.0) g/dl Hct 37.1 (37.0-47.0) % MCV 93.9 (80.0-100.0) fL MCH 32.9 (25.0-34.0) pg MCHC 35.0 (32.0-36.0) g/dL RDW Std Deviation 45.3 (36.4-46.3) fL RDW Coeff of Anne 13.2 (11.5-14.5) % Plt Count 226 (130-400) K/uL MPV 9.5 (9.4-12.4) fL Immature Gran % (Auto) 0.6 % Neut % (Auto) 95.8 % Lymph % (Auto) 1.0 % [place] % (Auto) 2.2 % Eos % (Auto) 0.2 % Baso % (Auto) 0.2 % Neut # (Auto) 11.54 H (1.40-6.50) K/uL Lymph # (Auto) 0.12 L (1.2-3.4) K/uL [place] # (Auto) 0.27 (0.11-0.59) K/uL Eos # (Auto) 0.03 (0-0.50) K/uL Baso # (Auto) 0.02 (0-0.2) K/uL Immature Gran # (Auto) 0.07 (0.01-0.20) K/uL Sodium 133 L (136-145) mmol/L Potassium 3.8 (3.5-5.1) mmol/L Chloride 100 (98-107) mmol/L Carbon Dioxide 26 (21-32) mmol/L Anion Gap 7 (3-11) BUN 24 H (6-23) mg/dl Creatinine 1.02 (0.6-1.2) mg/dl Est Cr Clr Drug Dosing 46.2 ml/min Est GFR ( Amer) 60.6 ml/min Est GFR (Non-Af Amer) 52.3 ml/min BUN/Creatinine Ratio 23.5 H (10-20) Glucose 152 H (70-99(Fasting)) mg/dl Lactate 1.6 (0.4-2.0) mmol/L Calcium 9.0 (8.6-10.3) mg/dl Total Bilirubin 0.7 (0.2-1.0) mg/dl AST 54 H (13-39) U/L ALT 47 (7-52) U/L Alkaline Phosphatase 106 H (34-104) U/L Troponin I High Sens 8.6 (0-14) pg/ml Total Protein 7.1 (6.0-8.3) gm/dl Albumin 3.8 (3.4-5.0) gm/dl Globulin 3.3 (2.5-4.0) gm/dl Albumin/Globulin Ratio 1.2 (0.9-2) Lipase 21 (11-82) U/L Urine Color Urine Appearance (Clear) Urine pH (4.5-7.5) Ur Specific [place] (1.000-1.030) Urine Protein (Negative) Urine Glucose (UA) (Negative) Urine Ketones (Negative) Urine Blood (Negative) Urine Nitrite (Negative) Urine Bilirubin (Negative) Urine Urobilinogen (Negative) Ur Leukocyte Esterase (Negative) Urine WBC (Auto) (0-5) /hpf Urine RBC (Auto) (0-4) /hpf U Hyaline Cast (Auto) (0-5) /lpf U Epithel Cells (Auto) (0-5) /lpf Urine Bacteria (Auto) (Negative) Ur Renal Epithelial Cell SARS-CoV-2, RNA, NAAT (NEGATIVE) 12/13/22 12/13/22 Range/Units 10:32 10:32 WBC (4.8-10.8) K/ul RBC (4.20-5.40) M/uL Hgb (12.0-16.0) g/dl Hct (37.0-47.0) % MCV (80.0-100.0) fL MCH (25.0-34.0) pg MCHC (32.0-36.0) g/dL RDW Std Deviation (36.4-46.3) fL RDW Coeff of Anne (11.5-14.5) % Plt Count (130-400) K/uL MPV (9.4-12.4) fL Immature Gran % (Auto) % Neut % (Auto) % Lymph % (Auto) % [place] % (Auto) % Eos % (Auto) % Baso % (Auto) % Neut # (Auto) (1.40-6.50) K/uL Lymph # (Auto) (1.2-3.4) K/uL [place] # (Auto) (0.11-0.59) K/uL Eos # (Auto) (0-0.50) K/uL Baso # (Auto) (0-0.2) K/uL Immature Gran # (Auto) (0.01-0.20) K/uL Sodium (136-145) mmol/L Potassium (3.5-5.1) mmol/L Chloride (98-107) mmol/L Carbon Dioxide (21-32) mmol/L Anion Gap (3-11) BUN (6-23) mg/dl Creatinine (0.6-1.2) mg/dl Est Cr Clr Drug Dosing ml/min Est GFR ( Amer) ml/min Est GFR (Non-Af Amer) ml/min BUN/Creatinine Ratio (10-20) Glucose (70-99(Fasting)) mg/dl Lactate (0.4-2.0) mmol/L Calcium (8.6-10.3) mg/dl Total Bilirubin (0.2-1.0) mg/dl AST (13-39) U/L ALT (7-52) U/L Alkaline Phosphatase (34-104) U/L Troponin I High Sens (0-14) pg/ml Total Protein (6.0-8.3) gm/dl Albumin (3.4-5.0) gm/dl Globulin (2.5-4.0) gm/dl Albumin/Globulin Ratio (0.9-2) Lipase (11-82) U/L Urine Color Dark Yellow Urine Appearance Clear (Clear) Urine pH 6.5 (4.5-7.5) Ur Specific [place] 1.031 H (1.000-1.030) Urine Protein 1+ H (Negative) Urine Glucose (UA) Negative (Negative) Urine Ketones Trace H (Negative) Urine Blood 1+ H (Negative) Urine Nitrite Positive A (Negative) Urine Bilirubin 1+ H (Negative) Urine Urobilinogen Negative (Negative) Ur Leukocyte Esterase 1+ H (Negative) Urine WBC (Auto) 1-5 (0-5) /hpf Urine RBC (Auto) 10-30 H (0-4) /hpf U Hyaline Cast (Auto) 0 (0-5) /lpf U Epithel Cells (Auto) >30 H (0-5) /lpf Urine Bacteria (Auto) Negative (Negative) Ur Renal Epithelial Cell Not Reportable SARS-CoV-2, RNA, NAAT NEGATIVE (NEGATIVE) Administered Medications Discontinued Medications Ceftriaxone Sodium (Rocephin) 2,000 mg in 70 mls @ 140 mls/hr IV NOW STA Stop: 12/13/22 13:07 Last Admin: 12/13/22 13:20 Dose: 140 mls/hr Documented By: [facility] Imaging Data Radiologist's Impression: Abdomen/Pelvis CT 12/13/22 09:55 CT OF THE ABDOMEN AND PELVIS WITHOUT CONTRAST CLINICAL HISTORY: Right lower quadrant pain +fever and vomiting. COMPARISON STUDY: CT of the abdomen and pelvis September 03, 2020. TECHNIQUE: Axial images of the abdomen and pelvis were obtained without IV contrast. Images were reviewed in the axial, sagittal, and coronal planes. Automated exposure control was utilized for the study. A dose lowering technique was utilized adhering to the principles of ALARA. FINDINGS: Numerous nodules within the lower lungs remain unchanged. These are similar to CT of September 03, 2020. No pneumatosis, free air or portal venous gas is present. Evaluation of the abdomen and pelvis is suboptimal on this unenhanced exam. No renal, ureteral or bladder calculi are present. There is no hydronephrosis or hydroureter. Unenhanced images of the liver, spleen, adrenal glands and pancreas are unremarkable. There is no biliary ductal dilatation st atus post cholecystectomy. There is no evidence for a bowel obstruction. The appendix is not visualized. A moderate amount stool within the colon and rectum is present. There is no ascites. The appearance of the abdomen and pelvis is unchanged since CT of September 03, 2020. There are no acute fractures within the visualized skeletal structures. No suspicious osseous lesions are present. There are multilevel degenerative changes within the spine. L4-L5 discectomy, posterior decompression and bilateral pedicle screw fusion is noted. IMPRESSION: 1. No acute process within the abdomen or pelvis on unenhanced exam. 2. No bowel obstruction. Moderate amount of stool within the colon and rectum. 3. No urinary calculi or hydronephrosis. ACT 112: Negative or not required by law. Electronically signed by: Mello Chung M.D. 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 Acute headache TECHNIQUE: Multiple axial CT images of the head were obtained without contrast. A dose lowering technique was utilized adhering to the principles of ALARA. COMPARISON: 08/21/2014. FINDINGS: No acute intracranial hemorrhage, midline shift, intracranial mass, hydrocephalus, territorial ischemia or abnormal extra-axial collection. Involu tional changes with chronic microvascular ischemic disease. Cerebrovascular calcifications. The calvarium is intact. Prior bilateral lens repair. The paranasal sinuses, mastoid air cells, and middle ear cavities are clear. IMPRESSION: No acute intracranial abnormality. ACT 112: Negative or not required by law. The above report was generated using voice recognition software. It may contain grammatical, syntax or spelling errors. Electronically signed by: Greysno Sarabia M.D. 12/13/2022 10:28 AM Chest X-Ray 12/13/22 10:35 XR chest 1V portable CLINICAL HISTORY: Fever. Weakness. COMPARISON STUDY: Chest radiograph February 15, 2021. Chest CT April 30, 2017. FINDINGS: There is no pneumothorax or pleural effusion. No consolidation is identified. No evidence for pulmonary edema. There is mild cardiomegaly. Mild reticulonodular interstitial thickening is likely chronic. IMPRESSION: No acute cardiopulmonary findings. ACT 112: Negative or not required by law. Electronically signed by: Mello Chung M.D. 12/13/2022 11:10 AM Discharge Plan Visit Data Chief Complaint: Vomiting Stated Complaint: VOMITING, SAYING THINGS TO THE WALL, WEAKNESS ED Provider: Alfonso Hobbs Discharge Problem: Abdominal pain, Weakness, Vomiting Forms Stand Alone Forms: [facility] Prescriptions Prescriptions: No Action alprazolam 0.25 mg tablet 0.5 mg PO BID PRN (Reason: anxiety) polyethylene glycol 3350 [Miralax] 17 gram powder in packet 17 gm PO DAILY ondansetron HCl [Zofran] 4 mg tablet 4 mg PO Q6H sertraline 100 mg tablet 100 mg PO DAILY irbesartan 150 mg tablet 150 mg PO .TAKE 1 TABLET DAILY. aspirin 81 mg tablet 81 mg PO .TAKE 1 TABLET DAILY. metoprolol tartrate 50 mg tablet 75 mg PO DAILY Rx Instructions: 1 and 1/2 tab am and 1 tab pm albuterol sulfate 90 mcg/actuation HFA aerosol inhaler 1 puff inhalation ONCE PRN (Reason: Wheezing) Qty: 1 Rx Instructions: 2 puffs q6h per daughter rosuvastatin 10 mg tablet 10 mg PO DAILY Rx Instructions: per daughter she takes 1 tab am fluticasone propion-salmeterol 250-50 mcg/dose blister with device 1 inh INHALATION AMPM acetaminophen [Tylenol Extended Release] 650 mg Tablet Extended Release 650 mg PO DAILY PRN (Reason: pain) levothyroxine 150 mcg tablet 150 mcg PO DAILY fluticasone propionate [Flonase] 50 mcg/actuation [place],Suspension 1 spray INTRANASAL DAILY Rx Instructions: administer into each nostril loratadine 10 mg Tablet 10 mg PO DAILY ezetimibe 10 mg tablet 10 mg PO DAILY Spiriva with HandiHaler 18 mcg capsule, w/inhalation device 2 cap INHALATION DAILY hydrochlorothiazide 12.5 mg tablet 12.5 mg PO DAILY Trulicity 0.75 mg/0.5 mL pen injector 0.75 mg SUBCUT WK Rx Instructions: Tuesdays iron-vitamin B complex with C Tablet 1 tab PO DAILY Rx Instructions: Per daughter it's a vitamin C & iron combo cyanocobalamin (vitamin B-12) 1,000 mcg/mL Kit 1,000 mcg IM MONTHLY metoprolol tartrate 50 mg tablet 50 mg PO HS Referrals Referrals: Rosemary Valentine MD [Primary Care Provider] -
--- NOTE | 2022-12-13 10:30 | CT Scan Report ---
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 Acute headache TECHNIQUE: Multiple axial CT images of the head were obtained without contrast. A dose lowering tech nique was utilized adhering to the principles of ALARA. COMPARISON: 08/21/2014. FINDINGS: No acute intracranial hemorrhage, midline shift, intracranial mass, hydrocephalus, territorial ischem ia or abnormal extra-axial collection. Involutional changes with chronic microvascular ischemic disea se. Cerebrovascular calcifications. The calvarium is intact. Prior bilateral lens repair. The paranasal sinuses, mastoid air cells, and m iddle ear cavities are clear. IMPRESSION: No acute intracranial abnormality. ACT 112: Negative or not required by law. The above report was generated using voice recognition software. It may contain grammatical, syntax o r spelling errors. Electronically signed by: Greyson Sarabia M.D. 12/13/2022 10:28 AM
--- NOTE | 2022-12-13 10:40 | CT Scan Report ---
CT OF THE ABDOMEN AND PELVIS WITHOUT CONTRAST CLINICAL HISTORY: Right lower quadrant pain +fever and vomiting. COMPARISON STUDY: CT of the abdomen and pelvis September 03, 2020. TECHNIQUE: Axial images of the abdomen and pelvis were obtained without IV contrast. Images were revi ewed in the axial, sagittal, and coronal planes. Automated exposure control was utilized for the aliyah dy. A dose lowering technique was utilized adhering to the principles of ALARA. FINDINGS: Numerous nodules within the lower lungs remain unchanged. These are similar to CT of September 03, 2020. No pneumatosis, free air or portal venous gas is present. Evaluation of the abdomen and pel vis is suboptimal on this unenhanced exam. No renal, ureteral or bladder calculi are present. There i s no hydronephrosis or hydroureter. Unenhanced images of the liver, spleen, adrenal glands and pancre as are unremarkable. There is no biliary ductal dilatation status post cholecystectomy. There is no e vidence for a bowel obstruction. The appendix is not visualized. A moderate amount stool within the c olon and rectum is present. There is no ascites. The appearance of the abdomen and pelvis is unchange d since CT of September 03, 2020. There are no acute fractures within the visualized skeletal structures. No suspicious osseous lesions are present. There are multilevel degenerative changes within the spin e. L4-L5 discectomy, posterior decompression and bilateral pedicle screw fusion is noted. IMPRESSION: 1. No acute process within the abdomen or pelvis on unenhanced exam. 2. No bowel obstruction. Moderate amount of stool within the colon and rectum. 3. No urinary calculi or hydronephrosis. ACT 112: Negative or not required by law. Electronically signed by: Mello Chung M.D. 12/13/2022 10:39 AM
--- NOTE | 2022-12-13 11:11 | XRay Report ---
XR chest 1V portable CLINICAL HISTORY: Fever. Weakness. COMPARISON STUDY: Chest radiograph February 15, 2021. Chest CT April 30, 2017. FINDINGS: There is no pneumothorax or pleural effusion. No consolidation is identified. No evidence f or pulmonary edema. There is mild cardiomegaly. Mild reticulonodular interstitial thickening is likel y chronic. IMPRESSION: No acute cardiopulmonary findings. ACT 112: Negative or not required by law. Electronically signed by: Mello Chung M.D. 12/13/2022 11:10 AM
[2022-12-13 11:12] LABS: Appearance Urine Clear (Clear); Bacteria Urine Automated Negative (Negative); Blood Urine 1+ (Negative); Color Urine Dark Yellow; Epithelial Cell Urine Auto >30 /lpf (0-5); Glucose Urine UA Negative (Negative); Ketones Urine Trace (Negative); Leukocyte Esterase Urine 1+ (Negative); Nitrite Urine Positive (Negative); Protein Urine 1+ (Negative); Specific Gravity Urine 1.031 (1.000-1.030); Urobilinogen Urine Negative (Negative); pH Urine 6.5 (4.5-7.5)
[2022-12-13 11:13] LABS: Hematocrit (blood only) 37.1 % (37.0-47.0); Mean Corpuscular Hemoglobin 32.9 pg (25.0-34.0); Mean Corpuscular Volume 93.9 fL (80.0-100.0); Mean Platelet Volume 9.5 fL (9.4-12.4); Platelet Count 226 K/uL (130-400); RDW Coefficient of Variation 13.2 % (11.5-14.5); RDW Standard Deviation 45.3 fL (36.4-46.3); Red Blood Count 3.95 M/uL (4.20-5.40); White Blood Count 12.05 K/ul (4.8-10.8)
[2022-12-13 11:21] LABS: Albumin Globulin Ratio 1.2 (0.9-2); Albumin Level 3.8 gm/dl (3.4-5.0); BUN Creatinine Ratio 23.5 (10-20); Bilirubin,Total 0.7 mg/dl (0.2-1.0); Creatinine Clr Calc Pharmacy 46.2 ml/min; Est GFR (African American) 60.6 ml/min; Est GFR (Non-African American) 52.3 ml/min; Globulin 3.3 gm/dl (2.5-4.0); Potassium 3.8 mmol/L (3.5-5.1); Total Protein 7.1 gm/dl (6.0-8.3)
[2022-12-13 11:42] LABS: Basophils # (auto) 0.02 K/uL (0-0.2); Basophils % (auto) 0.2 %; Eosinophils # (auto) 0.03 K/uL (0-0.50); Eosinophils % (auto) 0.2 %; Immature Granulocytes # (auto) 0.07 K/uL (0.01-0.20); Immature Granulocytes % (auto) 0.6 %; Lymphocytes # (auto) 0.12 K/uL (1.2-3.4); Monocytes # (auto) 0.27 K/uL (0.11-0.59); Monocytes % (auto) 2.2 %; Neutrophils # (auto) 11.54 K/uL (1.40-6.50); Neutrophils % (auto) 95.8 %
[2022-12-13 12:22] LABS: Bilirubin Urine 1+ (Negative)
[2022-12-13 12:23] LABS: Troponin I High Sensitivity 8.6 pg/ml (0-14)
[2022-12-13 12:24] LABS: Cast Urine Automated 0 /lpf (0-5)
[2022-12-13] MEDS ORDERED: cefTRIAXone SODIUM 2,000 MG/70 ML BAG IV STA (12:38)
--- NOTE | 2022-12-13 13:18 | History & Physical Report ---
Date of Service December 13, 2022 Assessment & Plan (1) SIRS (systemic inflammatory response syndrome): (2) Vomiting: Plan This is a 77-year-old female with significant past medical history of T2DM, PAF, HTN, bilateral carotid artery stenosis, moderate persistent asthma, hyperlipidem ia, hypothyroidism, diabetic polyneuropathy, CKD stage III, vitamin B12 deficiency, GERD lumbar spinal stenosis, depression with anxiety who presents to ED secondary to vomiting and ill feeling x 1 day. SIRS Vomiting Possible infectious encephalopathy pt meets SIRS criteria in setting of leukocytosis and fever ( temp 37.9), also reported fever/chills at home Pt started keflex yesterday for possible UTI yesterday - then reported hallucinations, fever, n/v and RLQ abd pain for past 12 hours Urine appears dirty with nitrites/leuks but negative bacturia (cathed specimen); however pt has been on antibiotic for 24hrs will empirically tx with IV rocephin 2g q24hr, as well as Doxy 100mg bid (family reports hypoxia when she woke up), although pt saturating well on RA here as well as CXR negative add probiotic PT/OT ADR to keflex in differential as well blood/urine culture pending RLQ Abd pain CT a/p nonspecific + Constipation - will add bowel regimen pt reports appendectomy/cholecystectomy T2DM a1c 6.7 06/2022 a1c in a.m. hold trulicity lantus/novolog per protocol PAF on metoprolol for rate control no OAC in setting of single episode Moderate persistent asthma on room air continue inhalers, no apparent exac Hypothyroidism recent increase 6/7 to 150mcq CKD3 avoid nephrotoxic agents cr stable Depression with anxiety continue prn xanax and routine sertraline DVT ppx: SQ Lovenox FULL CODE PCP: Meme Dispo: to [place], continue IV antibiotics, PT/OT, lives at home with daughter and plan is to return Pt was seen and examined in collaboration with Dr. Fong, please see addendum A total of 75 was spent coordinating, documenting, and providing care for this patient excluding time spent in the performance of separately billed services. This included personally viewing all current laboratories and imaging studies, medication reconciliation, outpatient chart review, and discussion with specialists. History of Present Illness Chief Complaint: vomiting and ill feeling x 1 day. Primary Care Provider: Rosemary Valentine MD This is a 77-year-old female with significant past medical history of T2DM, PAF, HTN, bilateral carotid artery stenosis, moderate persistent asthma, hyperlipidemia, hypothyroidism, diabetic polyneuropathy, CKD stage III, vitamin B12 deficiency, GERD lumbar spinal stenosis, depression with anxiety who presents to ED secondary to vomiting and ill feeling x 1 day. She started keflex yesterday for possible UTI. Last night daughters as bedside said she was, "delirious," "picking at the air," and talking to the wall. Pt states she remembers seeing birds in the air and was washing dishes in her recliner last night. She has similar sx in the past when she had an infection. In the last couple of days she complains fo headache, knee pain, fever, chills, nausea, vomi ting, RLQ abd pain that is nonradiating, increased urinary frequency/urgency but this is normal for her. She does have asthma and has chronic SOB but this is unchanged. Her last BM was 1/2hr ago. She is very constipated. She denies change in vision, dizzy, lightheaded, numbness/tingling, unilateral or bilateral weakness, loss of bladder/bowel, neck pain/stiffness, dysuria, chest pain, sob at rest, cough, uri sx, melena or hematochezia. She does struggle with constipation at home. Her nose has bled a few times the past couple of days. There are no known sick contacts at home. Allergies Allergy/AdvReac Type Severity Reaction Status Date / Time Iodinated Contrast Media Allergy Intermediate HIVES Verified 12/11/19 10:20 nitrofurantoin Allergy Mild RASH Verified 12/11/19 10:20 latex Allergy Unknown LOCAL SKIN Verified 12/11/19 10:20 IRRITATION lidocaine Allergy Unknown lidocaine Verified 12/11/19 10:20 patch-skin red,hot flushed feeling Amdwata-FHE-EzR Reductase Allergy Unknown LEG CRAMPS Unverified 12/11/19 10:20 Inhibitor [Pinzrvb-Dsk-Hcr Reductase Inhibitor] codeine AdvReac Mild N&V Verified 12/11/19 10:20 propoxyphene AdvReac Mild NAUSEA AND Verified 12/11/19 10:20 VOMITING Darvocet-N 100 TABS Allergy Uncoded 12/11/19 10:20 Macrobid Allergy Uncoded 12/11/19 10:20 Home Medications Medication Instructions Recorded Confirmed Type aspirin 81 mg tablet 81 mg PO .TAKE 1 TABLET DAILY. 02/12/19 12/13/22 History irbesartan 150 mg tablet 150 mg PO .TAKE 1 TABLET DAILY. 02/12/19 12/13/22 History metoprolol tartrate 50 mg tablet 75 mg PO DAILY 02/12/19 12/13/22 History albuterol sulfate 90 mcg/actuation 1 puff inhalation ONCE PRN 06/12/19 12/13/22 History aerosol inhaler Wheezing #1 g rosuvastatin 10 mg tablet 10 mg PO DAILY 06/12/19 12/13/22 History ondansetron HCl 4 mg tablet 4 mg PO Q6H 12/11/19 12/13/22 History (Zofran) polyethylene glycol 3350 17 gram 17 gm PO DAILY 12/11/19 12/13/22 History oral powder packet (Miralax) sertraline 100 mg tablet 100 mg PO DAILY 12/11/19 12/13/22 History alprazolam 0.25 mg tablet 0.5 mg PO BID PRN anxiety 08/09/21 12/13/22 History acetaminophen 650 mg 650 mg PO DAILY PRN pain 12/13/22 12/13/22 History tablet,extended release cyanocobalamin (vitamin B-12) 1,000 mcg IM MONTHLY 12/13/22 12/13/22 History 1,000 mcg/mL injection kit dulaglutide 0.75 mg/0.5 mL 0.75 mg subcut WK 12/13/22 12/13/22 History subcutaneous pen injector (Trulicity) ezetimibe 10 mg tablet 10 mg PO DAILY 12/13/22 12/13/22 History fluticasone 250 mcg-salmeterol 50 1 inh inhalation AMPM 12/13/22 12/13/22 History mcg/dose blistr powdr for inhalation fluticasone propionate 50 1 spray intranasal DAILY 12/13/22 12/13/22 History mcg/actuation nasal spray,suspension hydrochlorothiazide 12.5 mg tablet 12.5 mg PO DAILY 12/13/22 12/13/22 History iron-vitamin B complex with C 1 tab PO DAILY 12/13/22 12/13/22 History tablet levothyroxine 150 mcg tablet 150 mcg PO DAILY 12/13/22 12/13/22 History loratadine 10 mg tablet 10 mg PO DAILY 12/13/22 12/13/22 History metoprolol tartrate 50 mg tablet 50 mg PO HS 12/13/22 12/13/22 History tiotropium bromide 18 mcg capsule 2 cap inhalation DAILY 12/13/22 12/13/22 History with inhalation device (Spiriva with HandiHaler) Past Med/Surg History Medical History Asthma Diabetes mellitus, type II Dyslipidemia GERD (gastroesophageal reflux disease) Hypertension Hypothyroidism Paroxysmal atrial fibrillation Pulmonary nodules Spinal stenosis of lumbar region Statin intolerance Surgical History H/O shoulder surgery Hx of cholecystectomy Previous back surgery S/P TKR (total knee replacement) Status post appendectomy Status post tonsillectomy Family History Mother Coronary heart disease CHF (congestive heart failure) Father Stroke Daughter Hypertension Other Lung cancer Social History Smoking Status: Former smoker packs per day: 0.5; Smoking End Date: 13 years; Do You Dip or Chew Tobacco: No; Tobacco Cessation Education Requested by Patient: No Hx Alcohol Use: No Hx Substance Use: No Preferred Language: Surinamese Communication Ability: Effective marital status: / Current Living Situation: Family Current Living Situation Comment: Lives with daughter Feels Safe at Home: Yes Review of Systems Review of Systems: All systems reviewed & are unremarkable except as noted in HPI & below Physical Exam Physical Exam: Please refer to Dr. Fong addendum for physical exam findings Results & Data Results & Data Vital Signs (Past 12 Hours) Vital Signs Temp Pulse Resp BP Pulse Ox O2 Del Method 12/13/22 12:30 77 92 Room Air 12/13/22 12:00 79 20 92 Room Air 12/13/22 12:00 120/57 L 12/13/22 11:30 77 90 Room Air 12/13/22 12:38 37.9 C H 06/21/23 11:10 78 22 92 Room Air 12/13/22 11:00 122/59 L 12/13/22 11:00 80 16 91 Room Air 12/13/22 10:33 80 12/13/22 10:21 91 Room Air 12/13/22 09:29 37.7 C H 88 20 113/66 92 Room Air Laboratory Results Short CBC 12/13/22 Range/Units 10:32 WBC 12.05 H (4.8-10.8) K/ul Hgb 13.0 (12.0-16.0) g/dl Hct 37.1 (37.0-47.0) % Plt Count 226 (130-400) K/uL BMP 12/13/22 10:32 Sodium 133 L Potassium 3.8 Chloride 100 Carbon Dioxide 26 BUN 24 H Creatinine 1.02 Glucose 152 H Calcium 9.0 Liver Function 12/13/22 Range/Units 10:32 Total Bilirubin 0.7 (0.2-1.0) mg/dl AST 54 H (13-39) U/L ALT 47 (7-52) U/L Alkaline Phosphatase 106 H (34-104) U/L Albumin 3.8 (3.4-5.0) gm/dl Urine 12/13/22 Range/Units 10:32 Urine Color Dark Yellow Urine Appearance Clear (Clear) Urine pH 6.5 (4.5-7.5) Ur Specific [place] 1.031 H (1.000-1.030) Urine Protein 1+ H (Negative) Urine Glucose (UA) Negative (Negative) Diagnostic Findings Abdomen/Pelvis CT 12/13/22 09:55 CT OF THE ABDOMEN AND PELVIS WITHOUT CONTRAST CLINICAL HISTORY: Right lower quadrant pain +fever and vomiting. COMPARISON STUDY: CT of the abdomen and pelvis September 03, 2020. TECHNIQUE: Axial images of the abdomen and pelvis were obtained without IV contrast. Images were reviewed in the axial, sagittal, and coronal planes. Automated exposure control was utilized for the study. A dose lowering technique was utilized adhering to the principles of ALARA. FINDINGS: Numerous nodules within the lower lungs remain unchanged. These are similar to CT of September 03, 2020. No pneumatosis, free air or portal venous gas is present. Evaluation of the abdomen and pelvis is suboptimal on this unenhanced exam. No renal, ureteral or bladder calculi are present. There is no hydronephrosis or hydroureter. Unenhanced images of the liver, spleen, adrenal glands and pancreas are unremarkable. There is no biliary ductal dilatation status post cholecystectomy. There is no evidence for a bowel obstruction. The appendix is not visualized. A moderate amount stool within the colon and rectum is present. There is no ascites. The appearance of the abdomen and pelvis is unchanged since CT of September 03, 2020. There are no acute fractures within the visualized skeletal structures. No suspicious osseous lesions are present. There are multilevel degenerative changes within the spine. L4-L5 discectomy, posterior decompression and bilateral pedicle screw fusion is noted. IMPRESSION: 1. No acute process within the abdomen or pelvis on unenhanced exam. 2. No bowel obstruction. Moderate amount of stool within the colon and rectum. 3. No urinary calculi or hydronephrosis. ACT 112: Negative or not required by law. Electronically signed by: Mello Chung M.D. 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 Acute headache TECHNIQUE: Multiple axial CT images of the head were obtained without contrast. A dose lowering technique was utilized adhering to the principles of ALARA. COMPARISON: 08/21/2014. FINDINGS: No acute intracranial hemorrhage, midline shift, intracranial mass, hydrocephalus, territorial ischemia or abnormal extra-axial collection. Involutional changes with chronic microvascular ischemic disease. Cerebrovascular calcifications. The calvarium is intact. Prior bilateral lens repair. The paranasal sinuses, mastoid air cells, and middle ear cavities are clear. IMPRESSION: No acute intracranial abnormality. ACT 112: Negative or not required by law. The above report was generated using voice recognition software. It may contain grammatical, syntax or spelling errors. Electronically signed by: Greyson Sarabia M.D. 12/13/2022 10:28 AM Chest X-Ray 12/13/22 10:35 XR chest 1V portable CLINICAL HISTORY: Fever. Weakness. COMPARISON STUDY: Chest radiograph February 15, 2021. Chest CT April 30, 2017. FINDINGS: There is no pneumothorax or pleural effusion. No consolidation is identified. No evidence for pulmonary edema. There is mild cardiomegaly. Mild reticulonodular interstitial thickening is likely chronic. IMPRESSION: No acute cardiopulmonary findings. ACT 112: Negative or not required by law. Electronically signed by: Mello Chung M.D. 12/13/2022 11:10 AM Medications Administered Medication List Discontinued Medications Ceftriaxone Sodium (Rocephin) 2,000 mg in 70 mls @ 140 mls/hr IV NOW STA Stop: 12/13/22 13:07 Last Infusion: 12/13/22 13:54 Dose: Infused COVID-19 Results Results COVID- Adm Lab Results: RBC 3.95 M/uL (4.20-5.40) L 12/13/22 WBC 12.05 K/ul (4.8-10.8) H 12/13/22 Hgb 13.0 g/dl (12.0-16.0) 12/13/22 Hct 37.1 % (37.0-47.0) 12/13/22 Plt Count 226 K/uL (130-400) 12/13/22 Neutrophils (%) (Auto) 95.8 % 12/13/22 Lymphocytes (%) (Auto) 1.0 % 12/13/22 Monocytes # (Auto) 0.27 K/uL (0.11-0.59) 12/13/22 Eosinophils # (Auto) 0.03 K/uL (0-0.50) 12/13/22 Immature Granulocyte % (Auto) 0.6 % 12/13/22 Neutrophils # (Auto) 11.54 K/uL (1.40-6.50) H 12/13/22 Lymphocytes # (Auto) 0.12 K/uL (1.2-3.4) L 12/13/22 Monocytes # (Auto) 0.27 K/uL (0.11-0.59) 12/13/22 Eosinophils # (Auto) 0.03 K/uL (0-0.50) 12/13/22 Basophils # (Auto) 0.02 K/uL (0-0.2) 12/13/22 Immature Granulocyte # (Auto) 0.07 K/uL (0.01-0.20) 3 Na 133 mmol/L (136-145) L 12/13/22 K 3.8 mmol/L (3.5-5.1) 12/13/22 Cl 100 mmol/L (98-107) 12/13/22 CO2 26 mmol/L (21-32) 12/13/22 Anion Gap 7 (3-11) 12/13/22 BUN 24 mg/dl (6-23) H 12/13/22 Creatinine 1.02 mg/dl (0.6-1.2) 12/13/22 BUN/Creatinine Ratio 23.5 (10-20) H 12/13/22 Glucose Level 152 mg/dl (70-99(Fasting)) H 12/13/22 Ca 9.0 mg/dl (8.6-10.3) 12/13/22 Total Bilirubin 0.7 mg/dl (0.2-1.0) 12/13/22 AST/SGOT 54 U/L (13-39) H 12/13/22 ALT/SGPT 47 U/L (7-52) 12/13/22 Alkaline Phosphatase 106 U/L (34-104) H 12/13/22 Total Protein 7.1 gm/dl (6.0-8.3) 12/13/22 Albumin 3.8 gm/dl (3.4-5.0) 12/13/22 Globulin 3.3 gm/dl (2.5-4.0) 12/13/22 Albumin/Globulin Ratio 1.2 (0.9-2) 12/13/22 SARS-CoV-2, RNA, NAAT NEGATIVE (NEGATIVE) 12/13/22 Chest X-Ray 12/13/22 Code Status & VTE Plan Code Status FULL CODE VTE Prophylaxis Plan VTE Prophylaxis will be ordered: Yes Supervising Physician Co-Signing Physician Notes Ms. Calvert is a jose a 77 year old female with pmhx (per chart, confirmed with patient and daughters) of b/l carotid artery stenosis, pAfib (not on AC), moderate persistent asthma, NIDDM-II (associated with HTN and HLP, c/b peripheral polyneuropathy and nephropathy), hypothyroidism, GERD, CKD III, mariana min B12 deficiency, lumbar spinal stenosis, and depression with anxiety. She presented with RLQ pain, n/v, and AMS. This occurs in the setting of recently starting Cephalexin for a possible UTI two weeks prior. This morning her daughters also noted HR of 111 and O2 of 85% ORA. Here she was found to have SIRS of uncertain etiology. She is being treated with empiric coverage for possible respiratory and/or urinary infection. # SIRS: criteria at presentation RR > 20, wbc > 12. Suspected d/t infectious etiology, associated with AMS making this suspected severe sepsis. Also associated with abdominal pain, n/v, and report of hypoxia and tachycardia at home. CXR and CT A/P failed to demonstrate an infectious etiology. UA appears dirty with numerous epithelial cells but could be the source. It's also possible the CXR missed a developing pna (report of O2 85% on room air) though this is less likely with satisfactory O2 levels now. Additionally Pt does not reports any respiratory symptoms, though she appeared to have labored breathing at the time per her daughters. We will continue with empiric coverage. Follow up blood and urine cultures. Monitor fever curve and wbc count. # AMS: per daughters still not quite back to baseline, but improved from earlier. She has a hx of a similar reaction to a different antibiotic in the past. Unclear if this is toxic encephalopathy d/t drug (abx) exposure vs d/t infection vs hypoxic encephalopathy based on report of VS at home. NO e/o metabolic encephalopathy based on b/w which is largely unimpressive. No documented vs to suggest hypertensive encephalopathy either. # RLQ pain: CT A/P notable only for constipation. Per daughters at bedside this has been a lifelong problem. Will increase bowel regimen. Pt is not opposed to suppositories or enemas if needed. Serial abdominal exam. # NIDDM-II: trulicity once a week at home, was supposed to take yesterday but missed it, will use insulin here, pt to resume trulicity when d/c home. Continue glucose checks, hypoglycemic protocol, and diabetic diet. # CKD III: stable, avoid nephrotoxins and hypotension, relative hypotension # pAFib: rate controlled. Continue Metoprolol 75 mg po daily, 50 mg po hs # Hypothyroidism: continue levothyroxine (recently increased dose, not due for repeat TFTs yet) # primary HTN: currently adequately controlled. Continue BB, Irbesartan, and HCTZ # HLP: continue statin therapy, no indication to check a lipid panel at this time # depression with anxiety: reasonably controlled, pt is understandably anxious being in the hospital. Continue home regimen, increase lorazepam frequency if needed. General: NAD, well nourished, non-toxic appearing Head: NC AT Eyes: anicteric sclera, no conjunctival injection Nose: nares patent Mouth: MMM Neck: supple, trachea midline CV: RRR S1 S2 Pulm: CTA b/l Abd/GI: + BS, soft, mild TTP in the RLQ, periumbilical area, ND, no rebound or guarding. No suprapubic tenderness. : no roland Ext: trace b/l pretibial edema MSK: normal bulk and tone Neuro: moving all 4 extremities symmetrically, alert, no focal deficits. Psych: pleasant mood and affect Skin: visible skin is warm, dry, and intact. Mild blanching erythema of both shins. Pt not fully undressed for exam.
[2022-12-13] MEDS ORDERED: ALPRAZolam 0.25 MG TABLET PO STA (13:49)
[2022-12-13] MEDS ORDERED: ALPRAZolam 0.5 MG TABLET ONE (13:56)
[2022-12-13] MEDS ORDERED: GLUCOSE 10 TAB/TUBE PO PRN (15:38)
[2022-12-13] MEDS ORDERED: DEXTROSE 50% 50 ML SYRINGE IV PRN (15:38)
[2022-12-13] MEDS ORDERED: ALBUTEROL HFA 8 GM INHALER INH PRN (15:38)
[2022-12-13] MEDS ORDERED: ACETAMINOPHEN 325 MG TAB PO PRN (15:38)
[2022-12-13] MEDS ORDERED: CARBOHYDRATES FOR HYPOGLYCEMIA PO PRN (15:38)
[2022-12-13] MEDS ORDERED: GLUCAGON FOR INJ 1 MG VIAL SQ PRN (15:38)
[2022-12-13] MEDS ORDERED: ALUMINUM/MAGNESIUM SUSP 30 ML UDC PO PRN (15:38)
[2022-12-13] MEDS ORDERED: GLUCOSE 40% GEL 15 GM TUBE PO PRN (15:38)
[2022-12-13] MEDS ORDERED: ONDANSETRON INJ 2 MG/ML 2 ML VIAL IV PRN (15:38)
[2022-12-13] MEDS ORDERED: MAGNESIUM HYDROXIDE SUSP 30 ML UDC PO PRN (15:38)
[2022-12-13] MEDS ORDERED: POLYETHYLENE (MIRALAX) 17 GM PACK PO PRN (15:38)
[2022-12-13] MEDS: INSULIN ASPART PER UNIT CHARGE SC SCH ×2 (17:21→19:39)
[2022-12-13] MEDS: UMECLIDINIUM BROMIDE 62.5MCG/BLISTER 7 PUFFS/INHALER INH SCH (17:22)
[2022-12-13] MEDS: FLUTICASONE/VILANTEROL 200/25MCG 14 PUFFS/INHALER INH SCH (17:24)
[2022-12-13] MEDS: ADVANCED PROBIOTIC 1250 MG CAPSULE PO SCH (17:24)
[2022-12-13] MEDS: LOSARTAN POTASSIUM 50 MG TAB PO SCH (17:25)
[2022-12-13] MEDS: ASPIRIN 81 MG ECTAB PO SCH (17:25)
[2022-12-13] MEDS: LANTUS PER UNIT CHARGE SQ SCH (19:40)
[2022-12-13] MEDS: ENOXAPARIN INJ 40 MG/0.4 ML SYR SQ SCH (19:44)
[2022-12-13] MEDS: DOXYCYCLINE HYCLATE 100 MG CAP PO SCH (19:45)
[2022-12-13] MEDS: METOPROLOL TARTRATE 50 MG TAB PO SCH (19:45)
[2022-12-13] MEDS: DOCUSATE SODIUM/SENNA 50/8.6MG TAB PO SCH (19:46)
[2022-12-14] MEDS: LEVOTHYROXINE SODIUM 150 MCG TABLET PO SCH (06:12)
[2022-12-14 06:41] LABS: Basophils # (auto) 0.02 K/uL (0-0.2); Basophils % (auto) 0.3 %; Eosinophils # (auto) 0.52 K/uL (0-0.50); Eosinophils % (auto) 7.1 %; Hemoglobin 12.7 g/dl (12.0-16.0); Immature Granulocytes # (auto) 0.02 K/uL (0.01-0.20); Immature Granulocytes % (auto) 0.3 %; Lymphocytes # (auto) 0.23 K/uL (1.2-3.4); Lymphocytes % (auto) 3.1 %; Mean Corpuscular Hemoglobin 32.6 pg (25.0-34.0); Mean Corpuscular Hgb Conc 34.3 g/dL (32.0-36.0); Mean Corpuscular Volume 95.1 fL (80.0-100.0); Mean Platelet Volume 9.3 fL (9.4-12.4); Monocytes % (auto) 4.1 %; Neutrophils # (auto) 6.26 K/uL (1.40-6.50); Neutrophils % (auto) 85.1 %; Platelet Count 172 K/uL (130-400); RDW Coefficient of Variation 13.6 % (11.5-14.5); RDW Standard Deviation 47.7 fL (36.4-46.3); Red Blood Count 3.89 M/uL (4.20-5.40); White Blood Count 7.35 K/ul (4.8-10.8)
[2022-12-14 06:54] LABS: Albumin Globulin Ratio 1.1 (0.9-2); Albumin Level 3.5 gm/dl (3.4-5.0); BUN Creatinine Ratio 24.3 (10-20); Bilirubin,Total 0.6 mg/dl (0.2-1.0); Calcium 8.6 mg/dl (8.6-10.3); Creatinine Clr Calc Pharmacy 42.5 ml/min; Est GFR (African American) 54.7 ml/min; Est GFR (Non-African American) 47.2 ml/min; Globulin 3.2 gm/dl (2.5-4.0); Magnesium 2.1 mg/dl (1.7-2.4); Potassium 3.7 mmol/L (3.5-5.1); Total Protein 6.7 gm/dl (6.0-8.3)
[2022-12-14 07:52] LABS: Estimated Average Glucose 137 mg/dl; Hemoglobin A1C 6.4 % (4.5-5.6)
[2022-12-14] MEDS: LORATADINE 10 MG TAB PO SCH (08:33)
[2022-12-14] MEDS: DOCUSATE SODIUM/SENNA 50/8.6MG TAB PO SCH ×2 (08:33→21:07)
[2022-12-14] MEDS: EZETIMIBE 10 MG TABLET PO SCH (08:33)
[2022-12-14] MEDS: ALPRAZolam 0.5 MG TABLET PO PRN (08:33)
[2022-12-14] MEDS: METOPROLOL TARTRATE 25 MG TAB PO SCH (08:33)
[2022-12-14] MEDS: ASPIRIN 81 MG ECTAB PO SCH (08:33)
[2022-12-14] MEDS: ROSUVASTATIN CALCIUM 10 MG TAB PO SCH (08:34)
[2022-12-14] MEDS: DOXYCYCLINE HYCLATE 100 MG CAP PO SCH ×2 (08:34→21:07)
[2022-12-14] MEDS: UMECLIDINIUM BROMIDE 62.5MCG/BLISTER 7 PUFFS/INHALER INH SCH (08:34)
[2022-12-14] MEDS: ADVANCED PROBIOTIC 1250 MG CAPSULE PO SCH (08:34)
[2022-12-14] MEDS: SERTRALINE HCL 100 MG TABLET PO SCH (08:34)
[2022-12-14] MEDS: FLUTICASONE/VILANTEROL 200/25MCG 14 PUFFS/INHALER INH SCH (08:35)
[2022-12-14] MEDS: INSULIN ASPART PER UNIT CHARGE SC SCH ×4 (08:35→21:06)
[2022-12-14] MEDS: FLUTICASONE PROPIONATE NA SPR 16 GM BTL SCH (08:35)
[2022-12-14] MEDS: LOSARTAN POTASSIUM 50 MG TAB PO SCH (08:36)
[2022-12-14] MEDS: POLYETHYLENE (MIRALAX) 17 GM PACK PO SCH (08:36)
--- NOTE | 2022-12-14 08:44 | Hospitalist Progress Note ---
Date of Service December 14, 2022 Assessment & Plan (1) SIRS (systemic inflammatory response syndrome): (2) Vomiting: Plan This is a 77-year-old female with significant past medical history of T2DM, PAF, HTN, bilateral carotid artery stenosis, moderate persistent asthma, hyperlipidem ia, hypothyroidism, diabetic polyneuropathy, CKD stage III, vitamin B12 deficiency, GERD lumbar spinal stenosis, depression with anxiety who presents to ED secondary to vomiting and ill feeling x 1 day. SIRS-resolved Vomiting-resolved Urinary tract infection-continue Rocephin pending urine culture results Well-controlled type 2 diabetes mellitus- A1c 6.4. Hold trulicity, lantus/novolog per protocol Paroxysmal atrial fibrillation- on metoprolol for rate control; no OAC in setting of single episode Moderate persistent asthma- on room air, continue inhalers, not in exacerbation Hypothyroidism- recent increase / to 150mcq CKD3- Avoid nephrotoxic agents, Cr stable Depression with anxiety- continue prn xanax and routine sertraline Hyponatremia-mild, relatively stable, recheck in a.m. DVT ppx: SQ Lovenox Dispo: Continue IV Rocephin pending culture result, PT/OT eval, lives at home with daughter and plan is to return Admission and Anticipated Discharge Date Admission Date: December 13, 2022 Subjective Patient was seen and examined bedside. She feels much better since admission. No more vomiting. She denies fever, chills, chest pain or shortness of breath. Review of Systems Review of Systems: All systems reviewed & are unremarkable except as noted in Subjective Physical Exam Physical Exam: General: Sitting only in chair, watching TV, not in distress, on room air HEENT: EOMI, ADARSH, MMM Chest: Clear breath sounds bilaterally, no wheezes or crackles CVS: Regular rate and rhythm, normal heart sounds, no murmur Abdomen: Soft, non tender, not distended, normal bowel sounds Neuro: Awake, alert, oriented, conversing well, non focal Extremities: No cyanosis, clubbing or edema Results & Data Results & Data Vital Signs (Past 12 Hours) Vital Signs Temp Pulse Pulse Resp BP Pulse Ox O2 Del Method 12/14/22 07:21 36.9 C 83 18 113/65 93 Room Air 12/14/22 00:00 82 12/14/22 04:00 36.4 C L 72 20 117/63 93 Room Air 12/13/22 22:00 36.9 C 71 18 97/50 L 92 Room Air Laboratory Results Short CBC 12/14/22 Range/Units 06:02 WBC 7.35 (4.8-10.8) K/ul Hgb 12.7 (12.0-16.0) g/dl Hct 37.0 (37.0-47.0) % Plt Count 172 (130-400) K/uL BMP 12/14/22 06:02 Sodium 132 L Potassium 3.7 Chloride 100 Carbon Dioxide 26 BUN 27 H Creatinine 1.11 Glucose 102 H Calcium 8.6 Liver Function 12/14/22 Range/Units 06:02 Total Bilirubin 0.6 (0.2-1.0) mg/dl AST 53 H (13-39) U/L ALT 52 (7-52) U/L Alkaline Phosphatase 95 (34-104) U/L Albumin 3.5 (3.4-5.0) gm/dl Medications Administered Current Inpatient Medications Acetaminophen (Acetaminophen 325 Mg Tab) 650 mg PO Q4H PRN PRN Reason: Pain or Fever Stop: 01/12/23 15:37 Last Admin: 12/13/22 19:43 Dose: 650 mg Al Hydrox/Mg Hydrox/Simethicone (Aluminum/Magnesium Susp 30 Ml Udc) 15 ml PO Q4H PRN PRN Reason: Dyspepsia Stop: 01/12/23 15:37 Albuterol (Albuterol Hfa 8 Gm Inhaler) 2 puffs INH Q6H PRN PRN Reason: Wheezing Stop: 01/12/23 15:37 Alprazolam (Alprazolam 0.5 Mg Tablet) 0.5 mg PO BID PRN PRN Reason: anxiety Stop: 01/12/23 15:37 Last Admin: 12/14/22 08:33 Dose: 0.5 mg Aspirin (Aspirin 81 Mg Ectab) 81 mg PO DAILY KATHRYN Stop: 01/12/23 16:29 Last Admin: 12/14/22 08:33 Dose: 81 mg Dextrose (Dextrose 50% 50 Ml Syringe) 25 - 50 ml IV UD PRN; Protocol PRN Reason: Hypoglycemia Protocol Stop: 01/12/23 15:37 Doxycycline Hyclate (Doxycycline Hyclate 100 Mg Cap) 100 mg PO BID KATHRYN Stop: 12/20/22 20:59 Last Admin: 12/14/22 08:34 Dose: 100 mg Ezetimibe (Ezetimibe 10 Mg Tablet) 10 mg PO DAILY KATHRYN Stop: 01/13/23 08:59 Last Admin: 12/14/22 08:33 Dose: 10 mg Enoxaparin Sodium (Enoxaparin Inj 40 Mg/0.4 Ml Syr) 40 mg SQ HS KATHRYN Stop: 01/12/23 20:59 Last Admin: 12/13/22 19:44 Dose: 40 mg Fluticasone Propionate (Fluticasone Propionate Na Spr 16 Gm Btl) 1 sprays NA DAILY KATHRYN Stop: 01/13/23 08:59 Last Admin: 12/14/22 08:35 Dose: 1 sprays Fluticasone/Vilanterol (Fluticasone/Vilanterol 200/25mcg 14 Puffs/Inhaler) 1 puffs INH DAILY [facility]; Protocol Stop: 01/12/23 16:29 Last Admin: 12/14/22 08:35 Dose: 1 puffs Glucagon (Glucagon For Inj 1 Mg Vial) 1 mg SQ UD PRN; Protocol PRN Reason: Hypoglycemia Protocol Stop: 01/12/23 15:37 Glucose (Glucose 10 Tab/Tube) 4 - 8 tab PO UD PRN; Protocol PRN Reason: Hypoglycemia Treatment Stop: 01/12/23 15:37 Glucose (Glucose 40% Gel 15 Gm Tube) 15 - 30 gm PO UD PRN; Protocol PRN Reason: Hypoglycemia Protocol Stop: 01/12/23 15:37 Ceftriaxone Sodium 2,000 mg/ (Dextrose) 70 mls @ 100 mls/hr IV Q24H [facility]; Protocol Stop: 12/24/22 12:59 Last Admin: 12/14/22 12:31 Dose: 100 mls/hr Insulin Aspart (Insulin Aspart Per Unit Charge) 0 units SC ACHS [facility] Stop: 01/12/23 16:29 Last Admin: 12/14/22 12:31 Dose: 4 units Insulin Glargine (Lantus Per Unit Charge) 0 units SQ HS [facility]; Protocol Stop: 01/12/23 20:59 Last Admin: 12/13/22 19:40 Dose: Not Given Lactobacillus Acidophilus (Advanced Probiotic 1250 Mg Capsule) 2 cap PO DAILY [facility] Stop: 01/12/23 15:37 Last Admin: 12/14/22 08:34 Dose: 2 cap Levothyroxine Sodium (Levothyroxine Sodium 150 Mcg Tablet) 150 mcg PO DAILYBB [facility] Stop: 01/13/23 06:29 Last Admin: 12/14/22 06:12 Dose: 150 mcg Loratadine (Loratadine 10 Mg Tab) 10 mg PO DAILY [facility] Stop: 01/13/23 08:59 Last Admin: 12/14/22 08:33 Dose: 10 mg Losartan Potassium (Losartan Potassium 50 Mg Tab) 50 mg PO DAILY [facility]; Protocol Stop: 01/12/23 16:29 Last Admin: 12/14/22 08:36 Dose: 50 mg Magnesium Hydroxide (Magnesium Hydroxide Susp 30 Ml Udc) 30 ml PO Q12H PRN PRN Reason: Constipation Stop: 01/12/23 15:37 Metoprolol Tartrate (Metoprolol Tartrate 25 Mg Tab) 75 mg PO DAILY [facility] Stop: 01/13/23 08:59 Last Admin: 12/14/22 08:33 Dose: 75 mg Metoprolol Tartrate (Metoprolol Tartrate 50 Mg Tab) 50 mg PO HS [facility] Stop: 01/12/23 20:59 Last Admin: 12/13/22 19:45 Dose: 50 mg Miscellaneous (Carbohydrates For Hypoglycemia ) 15 - 30 gm PO UD PRN PRN Reason: Hypoglycemia Protocol Stop: 01/12/23 15:37 Ondansetron HCl (Ondansetron Inj 2 Mg/Ml 2 Ml Vial) 4 mg IV Q6H PRN PRN Reason: Nausea Stop: 01/12/23 15:37 Last Admin: 12/13/22 15:55 Dose: 4 mg Polyethylene Glycol (Polyethylene (Miralax) 17 Gm Pack) 17 gm PO DAILY PRN PRN Reason: Constipation Stop: 01/12/23 15:37 Polyethylene Glycol (Polyethylene (Miralax) 17 Gm Pack) 17 gm PO DAILY [facility] Stop: 01/13/23 08:59 Last Admin: 12/14/22 08:36 Dose: 17 gm Rosuvastatin Calcium (Rosuvastatin Calcium 10 Mg Tab) 10 mg PO DAILY [facility] Stop: 01/13/23 08:59 Last Admin: 12/14/22 08:34 Dose: 10 mg Senna/Docusate Sodium (Docusate Sodium/Senna 50/8.6mg Tab) 1 tab PO BID [facility] Stop: 01/12/23 20:59 Last Admin: 12/14/22 08:33 Dose: 1 tab Sertraline HCl (Sertraline Hcl 100 Mg Tablet) 100 mg PO DAILY KATHRYN Stop: 01/13/23 08:59 Last Admin: 12/14/22 08:34 Dose: 100 mg Umeclidinium Milmay (Umeclidinium Milmay 62.5mcg/Blister 7 Puffs/Inhaler) 1 puffs INH DAILY [facility]; Protocol Stop: 01/12/23 16:29 Last Admin: 12/14/22 08:34 Dose: 1 puffs
[2022-12-14] MEDS ORDERED: IRON PO SCH (09:00)
[2022-12-14] MEDS ORDERED: VITAMIN B COMPLEX PO SCH (09:00)
[2022-12-14] MEDS ORDERED: ASCORBIC ACID PO SCH (09:00)
[2022-12-14] MEDS: cefTRIAXone SODIUM 2,000 MG in DEXTROSE 5% 50 ML IV SCH (12:31)
[2022-12-14] MEDS: LANTUS PER UNIT CHARGE SQ SCH (21:06)
[2022-12-14] MEDS: ENOXAPARIN INJ 40 MG/0.4 ML SYR SQ SCH (21:07)
[2022-12-14] MEDS: METOPROLOL TARTRATE 50 MG TAB PO SCH (21:07)
[2022-12-15] MEDS: LEVOTHYROXINE SODIUM 150 MCG TABLET PO SCH (05:58)
[2022-12-15] MEDS: ALPRAZolam 0.5 MG TABLET PO PRN (06:40)
[2022-12-15] MEDS: INSULIN ASPART PER UNIT CHARGE SC SCH ×2 (08:24→12:22)
[2022-12-15] MEDS: FLUTICASONE/VILANTEROL 200/25MCG 14 PUFFS/INHALER INH SCH (08:31)
[2022-12-15] MEDS: FLUTICASONE PROPIONATE NA SPR 16 GM BTL SCH (08:31)
[2022-12-15] MEDS: ROSUVASTATIN CALCIUM 10 MG TAB PO SCH (08:32)
[2022-12-15] MEDS: ADVANCED PROBIOTIC 1250 MG CAPSULE PO SCH (08:32)
[2022-12-15] MEDS: UMECLIDINIUM BROMIDE 62.5MCG/BLISTER 7 PUFFS/INHALER INH SCH (08:32)
[2022-12-15] MEDS: SERTRALINE HCL 100 MG TABLET PO SCH (08:32)
[2022-12-15] MEDS: LORATADINE 10 MG TAB PO SCH (08:32)
[2022-12-15] MEDS: ASPIRIN 81 MG ECTAB PO SCH (08:33)
[2022-12-15] MEDS: LOSARTAN POTASSIUM 50 MG TAB PO SCH (08:33)
[2022-12-15] MEDS: DOCUSATE SODIUM/SENNA 50/8.6MG TAB PO SCH (08:33)
[2022-12-15] MEDS: EZETIMIBE 10 MG TABLET PO SCH (08:33)
[2022-12-15] MEDS: METOPROLOL TARTRATE 25 MG TAB PO SCH (08:33)
[2022-12-15] MEDS: DOXYCYCLINE HYCLATE 100 MG CAP PO SCH (08:33)
[2022-12-15] MEDS: POLYETHYLENE (MIRALAX) 17 GM PACK PO SCH (08:34)
--- NOTE | 2022-12-15 12:46 | Discharge Summary ---
Date of Service December 15, 2022 Admission HPI Per Admitting Provider This is a 77-year-old female with significant past medical history of T2DM, PAF, HTN, bilateral carotid artery stenosis, moderate persistent asthma, hyperlipidemia, hypothyroidism, diabetic polyneuropathy, CKD stage III, vitamin B12 deficiency, GERD lumbar spinal stenosis, depression with anxiety who presents to ED secondary to vomiting and ill feeling x 1 day. She started keflex yesterday for possible UTI. Last night daughters as bedside said she was, "delirious," "picking at the air," and talking to the wall. Pt states she remembers seeing birds in the air and was washing dishes in her recliner last night. She has similar sx in the past when she had an infection. In the last couple of days she complains fo headache, knee pain, fever, chills, nausea, vomiting, RLQ abd pain that is nonradiating, increased urinary frequency/urgency but this is normal for her. She does have asthma and has chronic SOB but this is unchanged. Her last BM was 1/2hr ago. She is very constipated. She denies change in vision, dizzy, lightheaded, numbness/tingling, unilateral or bilateral weakness, loss of bladder/bowel, neck pain/stiffness, dysuria, chest pain, sob at rest, cough, uri sx, melena or hematochezia. She does struggle with constipation at home. Her nose has bled a few times the past couple of days. There are no known sick contacts at home. Admission Exam Per Admitting Provider General:NAD, well nourished, non-toxic appearing Head:NC AT Eyes: anicteric sclera, no conjunctival injection Nose:nares patent Mouth:MMM Neck:supple, trachea midline CV:RRR S1 S2 Pulm:CTA b/l Abd/GI:+ BS, soft, mild TTP in the RLQ, periumbilical area, ND, no rebound or guarding. No suprapubic tenderness. :no roland Ext:trace b/l pretibial edema MSK:normal bulk and tone Neuro:moving all 4 extremities symmetrically, alert, no focal deficits. Psych:pleasant mood and affect Skin:visible skin is warm, dry, and intact. Mild blanching erythema of both shins. Pt not fully undressed for exam. Principal Diagnosis SIRS, Fever, Encephalopathy of unclear cause Discharge Exam General: Sitting comfortably in chair, watching TV, not in distress, on room air HEENT: EOMI, ADARSH, MMM Chest: Clear breath sounds bilaterally, no wheezes or crackles CVS: Regular rate and rhythm, normal heart sounds, no murmur Abdomen: Soft, non tender, not distended, normal bowel sounds Neuro: Awake, alert, oriented, conversing well, non focal Extremities: No cyanosis, clubbing or edema Discharge Data Allergies Allergy/AdvReac Type Severity Reaction Status Date / Time Iodinated Contrast Media Allergy Intermediate HIVES Verified 12/11/19 10:20 nitrofurantoin Allergy Mild RASH Verified 12/11/19 10:20 latex Allergy Unknown LOCAL SKIN Verified 12/11/19 10:20 IRRITATION lidocaine Allergy Unknown lidocaine Verified 12/11/19 10:20 patch-skin red,hot flushed feeling Txnmyyj-SED-WiK Reductase Allergy Unknown LEG CRAMPS Unverified 12/11/19 10:20 Inhibitor [Ivwzplw-Dqz-Cns Reductase Inhibitor] codeine AdvReac Mild N&V Verified 12/11/19 10:20 propoxyphene AdvReac Mild NAUSEA AND Verified 12/11/19 10:20 VOMITING Darvocet-N 100 TABS Allergy Uncoded 12/11/19 10:20 Macrobid Allergy Uncoded 12/11/19 10:20 Consultations 12/13/22 12:46 ED Decision to Admit Stat Ordered Studies 12/13/22 09:55 CT abd pelvis wo con Stat CT head/brain wo con Stat Laboratory Results WBC 7.35 K/ul (4.8-10.8) 12/14/22 06:02 RBC 3.89 M/uL (4.20-5.40) L 12/14/22 06:02 Hgb 12.7 g/dl (12.0-16.0) 12/14/22 06:02 Hct 37.0 % (37.0-47.0) 12/14/22 06:02 MCV 95.1 fL (80.0-100.0) 12/14/22 06:02 MCH 32.6 pg (25.0-34.0) 12/14/22 06:02 MCHC 34.3 g/dL (32.0-36.0) 12/14/22 06:02 RDW Std Deviation 47.7 fL (36.4-46.3) H 12/14/22 06:02 RDW Coeff of Anne 13.6 % (11.5-14.5) 12/14/22 06:02 Plt Count 172 K/uL (130-400) 12/14/22 06:02 MPV 9.3 fL (9.4-12.4) L 12/14/22 06:02 Immature Gran % (Auto) 0.3 % 12/14/22 06:02 Neut % (Auto) 85.1 % 12/14/22 06:02 Lymph % (Auto) 3.1 % 12/14/22 06:02 Yates % (Auto) 4.1 % 12/14/22 06:02 Eos % (Auto) 7.1 % 12/14/22 06:02 Baso % (Auto) 0.3 % 12/14/22 06:02 Neut # (Auto) 6.26 K/uL (1.40-6.50) 12/14/22 06:02 Lymph # (Auto) 0.23 K/uL (1.2-3.4) L 12/14/22 06:02 Yates # (Auto) 0.30 K/uL (0.11-0.59) 12/14/22 06:02 Eos # (Auto) 0.52 K/uL (0-0.50) H 12/14/22 06:02 Baso # (Auto) 0.02 K/uL (0-0.2) 12/14/22 06:02 Immature Gran # (Auto) 0.02 K/uL (0.01-0.20) 12/14/22 06:02 Sodium 132 mmol/L (136-145) L 12/14/22 06:02 Potassium 3.7 mmol/L (3.5-5.1) 12/14/22 06:02 Chloride 100 mmol/L (98-107) 12/14/22 06:02 Carbon Dioxide 26 mmol/L (21-32) 12/14/22 06:02 Anion Gap 6 (3-11) 12/14/22 06:02 BUN 27 mg/dl (6-23) H 12/14/22 06:02 Creatinine 1.11 mg/dl (0.6-1.2) 12/14/22 06:02 Est Cr Clr Drug Dosing 42.5 ml/min 12/14/22 06:02 Est GFR ( Amer) 54.7 ml/min 12/14/22 06:02 Est GFR (Non-Af Amer) 47.2 ml/min 12/14/22 06:02 BUN/Creatinine Ratio 24.3 (10-20) H 12/14/22 06:02 Glucose 102 mg/dl (70-99(Fasting)) H 12/14/22 06:02 POC Glucose 143 mg/dl (70-99) H 12/15/22 11:29 Estimat Average Glucose 137 mg/dl 12/14/22 06:02 Hemoglobin A1c 6.4 % (4.5-5.6) H 12/14/22 06:02 Lactate 1.6 mmol/L (0.4-2.0) 12/13/22 10:32 Calcium 8.6 mg/dl (8.6-10.3) 12/14/22 06:02 Magnesium 2.1 mg/dl (1.7-2.4) 12/14/22 06:02 Total Bilirubin 0.6 mg/dl (0.2-1.0) 12/14/22 06:02 AST 53 U/L (13-39) H 12/14/22 06:02 ALT 52 U/L (7-52) 12/14/22 06:02 Alkaline Phosphatase 95 U/L (34-104) 12/14/22 06:02 Troponin I High Sens 8.6 pg/ml (0-14) 12/13/22 10:32 Total Protein 6.7 gm/dl (6.0-8.3) 12/14/22 06:02 Albumin 3.5 gm/dl (3.4-5.0) 12/14/22 06:02 Globulin 3.2 gm/dl (2.5-4.0) 12/14/22 06:02 Albumin/Globulin Ratio 1.1 (0.9-2) 12/14/22 06:02 Lipase 21 U/L (11-82) 12/13/22 10:32 Urine Color Dark Yellow 12/13/22 10:32 Urine Appearance Clear (Clear) 12/13/22 10:32 Urine pH 6.5 (4.5-7.5) 12/13/22 10:32 Ur Specific [place] 1.031 (1.000-1.030) H 12/13/22 10:32 Urine Protein 1+ (Negative) H 12/13/22 10:32 Urine Glucose (UA) Negative (Negative) 12/13/22 10:32 Urine Ketones Trace (Negative) H 12/13/22 10:32 Urine Blood 1+ (Negative) H 12/13/22 10:32 Urine Nitrite Positive (Negative) A 12/13/22 10:32 Urine Bilirubin 1+ (Negative) H 12/13/22 10:32 Urine Urobilinogen Negative (Negative) 12/13/22 10:32 Ur Leukocyte Esterase 1+ (Negative) H 12/13/22 10:32 Urine WBC (Auto) 1-5 /hpf (0-5) 12/13/22 10:32 Urine RBC (Auto) 10-30 /hpf (0-4) H 12/13/22 10:32 U Hyaline Cast (Auto) 0 /lpf (0-5) 12/13/22 10:32 U Epithel Cells (Auto) >30 /lpf (0-5) H 12/13/22 10:32 Urine Bacteria (Auto) Negative (Negative) 12/13/22 10:32 Ur Renal Epithelial Cell Not Reportable 12/13/22 10:32 SARS-CoV-2, RNA, NAAT NEGATIVE (NEGATIVE) 12/13/22 10:32 Impressions Abdomen/Pelvis CT 12/13/22 09:55 CT OF THE ABDOMEN AND PELVIS WITHOUT CONTRAST CLINICAL HISTORY: Right lower quadrant pain +fever and vomiting. COMPARISON STUDY: CT of the abdomen and pelvis September 03, 2020. TECHNIQUE: Axial images of the abdomen and pelvis were obtained without IV contrast. Images were reviewed in the axial, sagittal, and coronal planes. Automated exposure control was utilized for the study. A dose lowering technique was utilized adhering to the principles of ALARA. FINDINGS: Numerous nodules within the lower lungs remain unchanged. These are similar to CT of September 03, 2020. No pneumatosis, free air or portal venous gas is present. Evaluation of the abdomen and pelvis is suboptimal on this unenhanced exam. No renal, ureteral or bladder calculi are present. There is no hydronephrosis or hydroureter. Unenhanced images of the liver, spleen, adrenal glands and pancreas are unremarkable. There is no biliary ductal dilatation status post cholecystectomy. There is no evidence for a bowel obstruction. The appendix is not visualized. A moderate amount stool within the colon and rectum is present. There is no ascites. The appearance of the abdomen and pelvis is unchanged since CT of September 03, 2020. There are no acute fractures within the visualized skeletal structures. No suspicious osseous lesions are present. There are multilevel degenerative changes within the spine. L4-L5 discectomy, posterior decompression and bilateral pedicle screw fusion is noted. IMPRESSION: 1. No acute process within the abdomen or pelvis on unenhanced exam. 2. No bowel obstruction. Moderate amount of stool within the colon and rectum. 3. No urinary calculi or hydronephrosis. ACT 112: Negative or not required by law. Electronically signed by: Mello Chung M.D. 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 Acute headache TECHNIQUE: Multiple axial CT images of the head were obtained without contrast. A dose lowering technique was utilized adhering to the principles of ALARA. COMPARISON: 08/21/2014. FINDINGS: No acute intracranial hemorrhage, midline shift, intracranial mass, hydrocephalus, territorial ischemia or abnormal extra-axial collection. Involutional changes with chronic microvascular ischemic disease. Cerebrovascular calcifications. The calvarium is intact. Prior bilateral lens repair. The paranasal sinuses, mastoid air cells, and middle ear cavities are clear. IMPRESSION: No acute intracranial abnormality. ACT 112: Negative or not required by law. The above report was generated using voice recognition software. It may contain grammatical, syntax or spelling errors. Electronically signed by: Greyson Sarabia M.D. 12/13/2022 10:28 AM Chest X-Ray 12/13/22 10:35 XR chest 1V portable CLINICAL HISTORY: Fever. Weakness. COMPARISON STUDY: Chest radiograph February 15, 2021. Chest CT April 30, 2017. FINDINGS: There is no pneumothorax or pleural effusion. No consolidation is identified. No evidence for pulmonary edema. There is mild cardiomegaly. Mild reticulonodular interstitial thickening is likely chronic. IMPRESSION: No acute cardiopulmonary findings. ACT 112: Negative or not required by law. Electronically signed by: Mello Chung M.D. 12/13/2022 11:10 AM Hospital Course (1) SIRS (systemic inflammatory response syndrome): (2) Vomiting: Plan This is a 77-year-old female with significant past medical history of T2DM, PAF, HTN, bilateral carotid artery stenosis, moderate persistent asthma, hyperlipidemia, hypothyroidism, diabetic polyneuropathy, CKD stage III, vitamin B12 deficiency, GERD lumbar spinal stenosis, depression with anxiety who presents to ED secondary to vomiting and ill feeling x 1 day. Patient was febrile on presentation but has remained afebrile for the past 2 days. Sepsis work up has been negative. Urine clx, blood clx negative. CXR and CT abd did not show any acute abnormality except for moderate stool on CT abd. She was started on empiric ceftriaxone/doxy on admission and tolerating well. N/V has completely resolved and tolerating diet well without issues. Her encephalopathy has completely resolved and she is back to her baseline. Also had a bowel movement with the stool softeners. She was seen by PT OT and cleared for discharge home. Will give 3 more days of empiric vantin/doxy given her presentation and improvement with empiric antibiotics. I spoke to her daughter Mimi prior to discharge and provided discharge instructions. She is comfortable and stable for discharge home. SIRS-resolved. Vomiting-resolved Fever on presentation- unclear cause. Work up negative. Details as above. No fever for past 2 days. Well-controlled type 2 diabetes mellitus- A1c 6.4. Continue home meds trulicity Paroxysmal atrial fibrillation- on metoprolol for rate control; no OAC in setting of single episode Moderate persistent asthma- on room air, continue inhalers, not in exacerbation Hypothyroidism- recent increase /7 to 150mcq CKD3- Avoid nephrotoxic agents, Cr stable Depression with anxiety- continue prn xanax and routine sertraline Hyponatremia-mild, relatively stable. F/u as OP with PCP Total Time Total Time Spent Total Time Spent (In Minutes): 40 Discharge Plan Discharge Items Patient Disposition: Home - Self-Care Reason For Visit: UTI, CONFUSION, VOMITING Discharge Diagnosis: SIRS, Fever, Encephalopathy of unclear origin Activity: Resume your previous activity Non-emergency contact: Primary Care Provider Call non-emergency contact if: you have any medication questions, your symptoms worsen and you have a fever Follow-up/Referrals: Meme,Doriann L., MD [Primary Care Provider] - Diet: Carb Consistent or DM2 and Heart Healthy Addtl Attending Provider Instructions: Continue the antibiotic twice daily for 3 more days Recommend over the counter stool softeners to have regular bowel movements daily. Follow up with the family doctor in a week Pending Studies at Discharge: No Stand-Alone Forms: My [facility], Smoking Cessation Medications and DC Order Prescriptions: New doxycycline hyclate 100 mg Capsule 100 mg PO BID Qty: 6 0RF cefpodoxime 200 mg tablet 200 mg PO BID Qty: 6 0RF Rx Instructions: must administer with a meal/food Continued alprazolam 0.25 mg tablet 0.5 mg PO BID PRN (Reason: anxiety) polyethylene glycol 3350 [Miralax] 17 gram powder in packet 17 gm PO DAILY ondansetron HCl [Zofran] 4 mg tablet 4 mg PO Q6H sertraline 100 mg tablet 100 mg PO DAILY irbesartan 150 mg tablet 150 mg PO .TAKE 1 TABLET DAILY. aspirin 81 mg tablet 81 mg PO .TAKE 1 TABLET DAILY. metoprolol tartrate 50 mg tablet 75 mg PO DAILY Rx Instructions: 1 and 1/2 tab am and 1 tab pm albuterol sulfate 90 mcg/actuation HFA aerosol inhaler 1 puff inhalation ONCE PRN (Reason: Wheezing) Qty: 1 Rx Instructions: 2 puffs q6h per daughter rosuvastatin 10 mg tablet 10 mg PO DAILY Rx Instructions: per daughter she takes 1 tab am fluticasone propion-salmeterol 250-50 mcg/dose blister with device 1 inh INHALATION AMPM acetaminophen [Tylenol Extended Release] 650 mg Tablet Extended Release 650 mg PO DAILY PRN (Reason: pain) levothyroxine 150 mcg tablet 150 mcg PO DAILY fluticasone propionate [Flonase] 50 mcg/actuation [place],Suspension 1 spray INTRANASAL DAILY Rx Instructions: administer into each nostril loratadine 10 mg Tablet 10 mg PO DAILY ezetimibe 10 mg tablet 10 mg PO DAILY Spiriva with HandiHaler 18 mcg capsule, w/inhalation device 2 cap INHALATION DAILY hydrochlorothiazide 12.5 mg tablet 12.5 mg PO DAILY Trulicity 0.75 mg/0.5 mL pen injector 0.75 mg SUBCUT WK Rx Instructions: Tuesdays iron-vitamin B complex with C Tablet 1 tab PO DAILY Rx Instructions: Per daughter it's a vitamin C & iron combo cyanocobalamin (vitamin B-12) 1,000 mcg/mL Kit 1,000 mcg IM MONTHLY metoprolol tartrate 50 mg tablet 50 mg PO HS Discharge Orders: Discharge Order (Routine); Ordered 12/15/22 Ordered By: Freddie Rodrigez Admission Data Admit Date/Time: 12/13/22 13:07 Attending Provider: Freddie Rodrigez Admit Provider: Iza Fong Primary Care Provider: Rosemary Valentine Other Providers: Iza Fong
[2022-12-15] MEDS: cefTRIAXone SODIUM 2,000 MG in DEXTROSE 5% 50 ML IV SCH (13:17)
--- NOTE | 2022-12-18 07:52 | Coding Query ---
SEPSIS To promote full compliance with coding requirements relating to patient care, physician participation is requested in all cases of outcome analyst uncertainty. Please assist us with the question(s) below: In responding to this query, please exercise your independent professional judgement. The fact that a question is asked does not imply that any particular answer is desired or expected. We appreciate your clarification on this issue. The medical record reflects the following clinical findings: Severe Sepsis due to possible infectious source. Discharge Summary documented fever,encephalopathy of unknown etiolgy, SIRS with severe sepsis. Urine culture negative. Please check below the diagnosis treated during this brief inpatient stay . Thanks for your help! [facility] Mcgar[facility] ____ ( )Bacteremia (Nonspecific laboratory finding of bacteria in the blood) Specify Organism ( ) Present on Admission ( ) Not present on admission ( ) Unable to clinically determine ( ) Septicemia (Systemic disease associated with the presence of pathogenic microorganisms in the blood): Specify Organism ( ) Present on Admission ( ) Not present on admission ( ) Unable to clinically determine ( ) Sepsis Specify Organism Specify Associated Condition/Diagnosis ( ) Present on Admission ( ) Not present on admission ( ) Unable to clinically determine ( ) Severe Sepsis (Sepsis associated with acute organ dysfunction) Specify Organism Specify Associated Condition/Diagnosis ( ) Present on Admission ( ) Not present on admission ( ) Unable to clinically determine ( ) Septic Shock (Severe sepsis with acute circulatory failure, unexplained by other causes) ( ) Present on Admission ( ) Not present on admission ( ) Unable to clinically determine (X ) Other, patient has: SIRS but no sepsis or identifiable source of infection. MTDD
== END 2022-12-15 16:27 | disposition home or self-care (01) | DRG 71 ==
LOC: ED 09:21 → SUATTDRO 13:07 → 2N 13:07

== ENCOUNTER 2023-12-02 01:45 | Inpatient (IN) ==
--- OUTSIDE RECORDS SUMMARY | 2023-12-02 01:51 | External Medical Summary | Summary of Care ---
Author Name Unknown Organization [facility] Address [address] [place] [address] Phone [phone] Care Team Providers Care Swatch Paster Name Role Phone Rosemary Valentine MD Primary Care Provide r Reason for Visit * Reason Onset Date Comments Urinary Tract Infection Symptoms 11/30/2023 Encounter Details Date Type Department Care Team (Late st Contact Info) Description 11/30/2023 Nurse Triage Family Medicine [address] [phone] Rosemary Valentine MD [address] [place], [place] [address] [address] Allergies Active Allergy Reactions Criticality Noted Date Comments Codeine Nausea/vomiting 08/15/2011 Propoxyphene N-Acetaminophen Nausea/vomiting Low 08/24/2008 Iodinated Contrast Media Hives 02/06/2023 Iodine Hives 01/08/2001 Latex 09/26/2012 Contact dermititis Nitrofurantoin Rash 09/07/2014 Metformin 04/12/2021 documented as of this encounter (statuses as of 11/30/2023) Medications Medication Sig Dispensed Refills Start Date End Date Status ASPIRIN 81 MG PO TABSIndications:hea rt Take 1 Tablet by mouth in the morning. Active Iron-Vitamin C 65-125 MG Oral Tablet Take 1 Tablet by mouth in the morning. 90 Tab 3 01/25/2016 Active Polyethylene Glycol 3350 17 GM/SCOOP Oral PowderIndications:c onstipation Take 17 g by mouth at bedtime as needed for Constipation. Active Loratadine 10 MG Oral CapsuleIndications: allergies Take 1 Capsule by mouth in the morning. Active Cyanocobalamin 1000 MCG/ML Injection Solution (Cyanocobalamin) Inject as directed 1,000 mcg every 30 days . 1 mL 11 09/13/2021 Active OneTouch Verio w/Device KitIndications:Type 2 diabetes mellitus with stage 3a chronic kidney disease, without long-term current use of insulin ([facility]) Use up to 4 times a day E11.9 1 Kit 10/03/2021 Active hydroCHLOROthiazide 12.5 MG Oral Tablet (Hydrodiuril) TAKE ONE TABLET BY MOUTH IN THE MORNING 90 Tablet 3 08/17/2022 Active OneTouch UltraSoft LancetsIndications: Type 2 diabetes mellitus with stage 3a chronic kidney disease, without long-term current use of insulin ([facility]) Use once daily to check glucose E11.9 100 Each 5 08/21/2022 Active Acetaminophen ER 650 MG Oral Tablet Extended Release Take 1 Tablet by mouth every 8 hours as needed. Active Docusate Sodium 100 MG Oral Capsule (Colace) Take 2 Capsules by mouth at bedtime as needed for Constipation. Patient taking daily at bedtime Active Pantoprazole Sodium 20 MG Oral Tablet Delayed Release (Protonix)Indicatio ns:Gastroesophageal reflux disease with esophagitis without hemorrhage Take 1 Tablet by mouth in the morning and 1 Tablet in the evening. 180 Tablet 1 01/19/2023 Active Ezetimibe 10 MG Oral Tablet (Zetia)Indications: Dyslipidemia, goal LDL below 70 TAKE ONE TABLET BY MOUTH IN THE MORNING 90 Tablet 3 03/05/2023 Active Albuterol Sulfate HFA 108 (90 Base) MCG/ACT Inhalation Aerosol SolutionIndications :Intermittent asthma with reliever use up to twice per week without complication,SOB (shortness of breath) Inhale 2 Puffs by mouth every 6 hours as needed for Shortness of Breath or Wheezing. 18 g 5 06/07/2023 Active Sertraline HCl 100 MG Oral Tablet (Zoloft)Indications :Anxiety, generalized,Current moderate episode of major depressive disorder without prior episode (HCC) TAKE 1 - 2 TABLETS BY MOUTH EVERY DAY 200 Tablet 2 07/28/2023 Active Fluticasone Propionate 50 MCG/ACT Nasal Suspension (Flonase)Indication s:Seasonal allergic rhinitis due to pollen Administer 2 Sprays into each nostril in the morning. 18.2 mL 11 08/15/2023 Active Irbesartan 150 MG Oral Tablet (Avapro) Take 1 Tablet by mouth in the morning. 90 Tablet 1 08/22/2023 Active Levothyroxine Sodium 150 MCG Oral Tablet (Levoxyl) Take 1 Tablet by mouth daily first thing in the morning. (at least 30 min prior to breakfast or other meds) 90 Tablet 1 08/22/2023 Active Metoprolol Tartrate 50 MG Oral Tablet (Lopressor) take 1 and 1/2 tablets in the morning and 1 tablet in the evening. 225 Tablet 3 08/22/2023 Active Trulicity 0.75 MG/0.5ML Subcutaneous Solution Pen-injector (Dulaglutide)Indica tions:Type 2 diabetes mellitus with stage 3a chronic kidney disease, without long-term current use of insulin (HCC) Inject 0.75 mg under the skin once a week. (on Mondays) 6 mL 1 09/25/2023 Active Olopatadine HCl 0.1 % Ophthalmic Solution (Pataday) Instill 1 Drop into both eyes in the morning and 1 Drop before bedtime. Active Loteprednol Etabonate 0.5 % Ophthalmic Suspension (Lotemax) Instill 1 Drop into both eyes 2 times a day. 06/20/2023 Active Fluticasone-Umeclid in-Vilant 200-62.5-25 MCG/ACT Aerosol Powder Breath Activated (Trelegy Ellipta) Inhale 1 Puff by mouth daily. 60 Blister Dosing Unit 3 09/26/2023 Active Acetaminophen ER 650 MG Oral Tablet Extended Release (Arthritis Pain Relief) Take 1 Tablet by mouth every 8 hours as needed. Active Ondansetron HCl 4 MG Oral Tablet (Zofran)Indications :Nausea without vomiting take 1 tablet every 6 hours as needed for nausea. 30 Tablet 2 10/30/2023 Active OneTouch Verio In Vitro Strip (Glucose Blood)Indications:T ype 2 diabetes mellitus with stage 3a chronic kidney disease, without long-term current use of insulin (HCC) Use once daily to check glucose E11.9 100 Strip 5 10/30/2023 Active Rosuvastatin Calcium 10 MG Oral Tablet (Crestor)Indication s:Dyslipidemia, goal LDL below 100 Take 1 Tablet by mouth in the morning. 90 Tablet 3 10/29/2023 Active NATURAL SUPPLEMENT Take 1-2 Tablets by mouth at bedtime as needed for Sleep. Relaxium Active ALPRAZolam 0.5 MG Oral Tablet (xaNAX)Indications: Anxiety take 1 tablet in the morning and evening if needed for anxiety 60 Tablet 11/29/2023 Active Hospital, Clinic, or Other Facility Administered Medication Ordered Dose Route Frequency Start Date End Date Status vitamin b-12 (Cyanocobalamin) inj 1,000 mcgIndications:Vitamin B12 deficiency 1000 mcg IM [id number] 02/06/2023 01/08/2024 Active documented as of this encounter (statuses as of 11/30/2023) Active Problems Problem Noted Date Diagnosed Date Chronic diastolic congestive heart failure 02/08 Chronic chest pain 02/08/2023 Physical deconditioning 02/08/2023 Slow transit constipation 01/19/2023 Morbid obesity 01/19/2023 Atherosclerosis of aorta 11/27/2022 BMI 40.0-44.9, adult 07/03/2022 Immunization not carried out because of patient decision 01/23/2022 Current moderate episode of major depressive disorder without prior episode 08/20/2020 Type 2 diabetes mellitus wit h stage 3a chronic kidney disease, without long-term current use of insulin 08/20/2020 History of 2019 novel coronavirus disease (COVID -19) 08/20/2020 Primary osteoarthritis of left wrist 05/14/2020 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 05/14/2020 Hypertensive kidney disease with stage 3a chronic kidney disease 05/03/2020 Overview: Per CKD protocol Anxiety, generalized 02/05/2020 Asymptomatic bilateral carotid artery stenosis 0 07/29/2019 Gastroesophageal reflux disease with esophagitis 07/29/2019 Type 2 diabetes mellitus with polyneuropathy 09/2018 Osteoarthritis of left hip 10/18/2018 S/P total knee replacement using cement 09/05/19 17 Paroxysmal atrial fibrillation 09/07/2014 Multiple pulmonary nodules 08/17/2014 Overview: largest 7 mm in LLL OA (osteoarthritis) of knee 08/10/2014 Dyslipidemia, goal LDL below 100 08/25/2011 Cervical spine degeneration 08/15/2011 Moderate persistent asthma without complication 01/25/2010 Spinal stenosis of lumbar re gion without neurogenic claudication 09/23/2008 Acquired spondylolisthesis 09/23/2008 Primary localized osteoarthrosis of shoulder reg ion 08/18/2008 Generalized osteoarthritis of multiple sites ADVANCE DIRECTIVE INFORMATION 10/25/2005 Overview: No, Advance Directive brochure given to patient at prior appointment. CERVICAL DISC DEGEN 10/25/2005 Acquired hypothyroidism 09/25/2003 Varicose vein of leg 11/21/2002 Other allergic rhinitis Overview: ICD-10 update of inactive term Degeneration of lumbosacral intervertebral disc HTN, goal below 140/90 Vitamin B12 deficiency Statin intolerance Hiatal hernia documented as of this encounter (statuses as of 11/30/2023) Resolved Problems Problem Noted Date Diagnosed Date Resolved Date Morbid obesity 01/19/2023 04/13/2023 Overview: duplicate Morbid obesity 11/27/2022 12/07/2022 Body mass index (BMI) of 40. 0 to 44.9 in adult 01/31/2021 05/11/2021 Overview: Per Obesity protocol Cellulitis of right lower extremity 12/29/2020 05/11/2021 Type 2 diabetes mellitus wit h stage 3 chronic kidney disease 08/06/2020 08/20/2020 Diabetes mellitus with stage 3 chronic kidney disease 05/03/2020 08/20/2020 Overview: Per CKD protocol Hypertensive kidney disease with chronic kidney disease stage III 10/18/2018 05/06/2020 Overview: Per CKD protocol Type 2 diabetes mellitus wit h stage 3 chronic kidney disease, without long-term current use of insulin 10/18/2018 05/06/2020 Overview: Per CKD protocol Food insecurity 04/01/2018 01/17/2021 Overview: Per [facility] Protocol Food insecurity 02/05/2018 03/29/2018 Overview: Per [facility] Protocol Body mass index (BMI) of 40. 0 to 44.9 in adult 05/25/2017 07/09/2017 Overview: ICD-10 update of inactive term Diabetes mellitus due to und erlying condition with diabetic chronic kidney disease 05/25/2017 Kidney disease, chronic, sta ge III (GFR 30-59 ml/min) 08/30/2015 11/06/2018 Overview: Per CKD protocol #1 Non-traumatic compression fr acture of T3 thoracic vertebra 05/25/2015 07/09/2017 Overview: possible mild T3 compression fx Anxiety 01/22/2015 02/05/2020 Gastritis 09/23/2014 01/07/2018 HTN, goal below 140/90 11/24/201106/21 Type 2 diabetes mellitus wit h hemoglobin A1c goal of less than 8.0% 08/25/2011 02/26/2019 Overview: ICD-10 update of inactive term Calcific tendinitis of right shoulder 08/15/2011 01/07/2018 Dyslipidemia, goal LDL below 130 08/02/2010 08/25/2011 Dyslipidemia, goal LDL below 130 01/25/2010 01/25/2010 Dyslipidemia, goal LDL below 100 01/25/2010 08/02/2010 Severe obesity with body mas s index (BMI) of 35.0 to 39.9 with serious comorbidity 12/06/2009 Overview: Per Obesity Protocol, #19 HTN, goal below 130/80 06/22/200911/23 Dyslipidemia, goal LDL below 100 06/01/2009 01/25/2010 Overview: Per Lipid Taxonomy. HTN, goal below 140/90 04/30/200906/22 Overview: Modified per HTN Taxonomy. Impaired fasting glucose 06/23/200607/2011 LOC PRIM [id number] 04/16/200609/24 LOC PRIM OSTEOARTH-ANKLE 04/16/2006 Sprain of ankle 10/25/2005 08/29/2007 Displacement of lumbar inter vertebral disc without myelopathy 12/22/2003 09/18/2007 Sciatica 12/04/2003 09/18/2007 Sciatica 11/28/2003 09/18/2007 Cramp in limb 09/28/2003 09/18/2007 Asthma with severity to be determined 10/22/2002 01/25/2010 Overview: ICD-10 update of inactive term Mixed dyslipidemia 11/05/2000 9 Overview: Per Lipid Taxonomy. BENIGN HYPERTENSION 04/30/20 09 Overview: Modified per HTN Taxonomy. IRON DEFIC ANEMIA NOS 2007 COMMON MIGRAINE WITHOUT MENT ION OF INTRACTABLE MIGRAINE 01/07/2018 GENERAL OSTEOARTHROSIS 09/17 Reflux esophagitis 8 SPONDYLOSIS NOS W MYELOP BENIGN PARXYSMAL VERTIGO Carotid stenosis, non-symptomatic 12/05/2021 Overview: Ramiro on PL Rotator cuff tear 01/07/2018 documented as of this encounter (statuses as of 11/30/2023) Immunizations Name Administration Dates Next Due Pneumococcal Conjugate Vacc, 13 Valent (Prevnar) 10/07/2014 Pneumococcal Polysaccharide PPV23 (Pneumovax) 08/18/2008 Season Influenza, Quad, PF, Adjuvanted, 65+ Yrs, IM (FLUAD) 05/06/2020 Seasonal Influenza Virus Vac cine, Unspecified Formulation 02/26/2019,04/23/2018,03/05/2017,02/24,03/29/2015,04/23/2014,04/21/20 13,03/25/2012,03/25/2011,03/25/2010,1 ,04/06/2008,03/28/2004,04/13,04/14/2002,05/20/2001 Seasonal Influenza, PF, 6 M & above, IM , (FluLaval or Fluzone) 04/23/2018 Seasonal Influenza, Quadriva lent Hd (Fluzone Hd) 03/05/2023,05/11/2021 Seasonal Influenza, Quadriva lent, No Preserve, IM 03/05/2017,03/22/2016,03/29/2015 Seasonal Influenza, Split, I IV3, With Preserve, Inj 04/23/2014,04/21/2013,03/25/2012,10/0 06/2010,03/25/2010,03/25/2009,04/06/20 08,04/13/2003,04/14/2002,05/20/2001 04/13/2004 Seasonal Influenza, Trivalen t, Adjuvanted, 65+ yrs 02/26/2019 Seasonal Influenza, Trivalen t, High Dose, No Preserve, IM 02/23/2022 TDAP (age 10 and older)(Boostrix) 02/10/2019 TDAP, Age 7 and older, IM (Adacel) 08/29/2007 Zoster Vaccine Recombinant (Shingrix) 06/06/2021 ,02/25/2021 documented as of this encounter Social History Tobacco Use Types Packs/Day Years Used Date Smoking Tobacco: Former Cigarettes 0.5 13 0 11/23/1958 - 11/24/1971 Smokeless Tobacco: Never Comments:Quit in 1971 Alcohol Use Standard Drinks/Week Comments No 0 (1 standard drink = 0.6 oz pur e alcohol) PHQ-2 Answer Date Recorded PHQ Adult Total Score 1 01/29/2023 Hunger Vital Sign Answer Date Recorded Within the past 12 months, y ou worried that your food would run out before you got the money to buy more. Never true 07/30/19 24 Within the past 12 months, t he food you bought just didn't last and you didn't have money to get more. Never true 07/30/2023 Sex and Gender Information Value Date Recorded Sex Assigned at Female 01/23/2022 3:44 PM EDT Gender Identity Female 01/23/2022 3:44 PM EDT Sexual Orientation Straight 01/23/2022 3: 44 PM EDT Job Start Date Occupation Industry Not on file Not on file Not on file documented as of this encounter Miscellaneous Notes * Addendum Note - Dennis Jones RN - 11/30/2023 3:08 PM EDTAddended by: DENNIS JONES on: 11/30/2023 03:08 PM Modules accepted: Orders * Telephone Encounter - Dennis Jones RN - 11/30/2023 3:07 PM EDT Reason for Disposition Patient's symptoms are safe to treat at home per nursing judgment Additional Information Negative: Sounds like a life-threatening emergency to the triager Negative: Information only call about a Well Adult (no illness or injury) Negative: Caller can't be reached by phone Negative: Nursing judgment Negative: Nursing judgment Negative: Nursing judgment Negative: Nursing judgment Negative: Nursing judgment Negative: Nursing judgment Negative: Patient wants to be seen Negative: Nursing judgment Negative: Nursing judgment Negative: Nursing judgment Negative: Nursing judgment Negative: Nursing judgment Answer Assessment - Initial Assessment Questions See note Protocols used: No Protocol [id number] * Telephone Encounter - Dennis Jones RN - 11/30/2023 2:57 PM EDT swine nutritionist UTI Protocol Stop after selecting the 1st yes and follow the disposition. If all answers are NO, pt. has passed the UTI protocol. Call EMS/911 Now Yes No Shock suspected (e.g., cold/pale/clammy skin, too weak to stand, low BP, rapid pulse) [] [x] See More Appropriate Guideline (i.e.,vaginal discharge/symptoms, urinary pain/symptoms) Yes No Only has 1 out of 3 symptoms present. (dysuria, frequency, urgency) [] [x] Unusual vaginal discharge (e.g., bad smelling, yellow, green, or foamy-white) [] [x] Go to ED/ACTA/CC+ Yes No [1] Unable to urinate (or only a few drops) > 4 hours AND [2] bladder feels very full (e.g., palpable bladder or strong urge to urinate) [] [x] Go to Office now/PCP Triage Yes No Fever > 100.4 F (38.0 C), shaking, or chills [] [x] Side (flank) or lower back pain present [] [x] See within 24hrs Yes No Pt. had a urological procedure in the last 2 weeks (or advise to contact Uro) [] [x] Last Office Visit > 1yr ago Last appt: 08/28/2023 [] [x] Data Collection: Check All That Apply Check Currently [] [] Immunocompromised (Lexicomp) [] Indwelling Catheter [] Diabetic (if pt. Is diabetic, review labs for HBA1C in the last year) [x] Creatinine resulted in the last year [x] Allergies: Reviewed Pharmacy: [id number] [address] [facility] *add to appt. note: [facility] UTI protocol Appt. scheduled. Watch for UA results. Pt would like same day ABX today. Please call daughter Mimi @ [phone] and leave a detailed message if she doesn't answer! Thanks. Reason for Disposition Patient's symptoms are safe to treat at home per nursing judgment Additional Information Negative: Sounds like a life-threatening emergency to the triager Negative: Information only call about a Well Adult (no illness or injury) Negative: Caller can't be reached by phone Negative: Nursing judgment Negative: Nursing judgment Negative: Nursing judgment Negative: Nursing judgment Negative: Nursing judgment Negative: Nursing judgment Negative: Patient wants to be seen Negative: Nursing judgment Negative: Nursing judgment Negative: Nursing judgment Negative: Nursing judgment Negative: Nursing judgment Answer Assessment - Initial Assessment Questions See note Protocols used: No Protocol [id number] * Telephone Encounter - Bry Gan glassware maker - 11/30/2023 2:53 PM EDT Female patient 18 + calling with UTI symptoms of (Call Details not required): stinging/burning whenpeeing, saying "off the wall" things. Please call patients back at: [phone] (Mildred- Pt's daughter) Any additional information to pass onto the RN: she had had UTI's in the past documented in this encounter Plan of Treatment Upcoming Encounters Date Type Department Care Team (Late st Contact Info) Description 11/30/2023 4:20 PM EDT Laboratory Laboratory [address] [place] [phone] [facility] [address] [place] [address] 12/03/2023 4:20 PM EDT Nurse Only Ancillary [address] [place] [address] Samantha, Nurse [address] [place] [address] 12/17/2023 5:40 PM EDT Office Visit Family Medicine [address] [place] [phone] Rosemary Valentine MD [address] [place] [address] [place] [address] 02/01/2024 3:00 PM EDT Nurse Only Ancillary [address] [place] [address] Kateryna, [address] [place] [address] 04/24/2024 3:30 PM EDT Office Visit Cardiology [address] [place] [address] Herberth Denny PA-C [address] [place] [address] Health Maintenance Due Date Last Done Comments DXA Scan 01/04/2023 01/05/2020, 01/04/2015 COVID-19 Vaccine ( season) 2023 Colonoscopy 04/19/2023 04/19/2018, 03/26, 09/29/2014, Additional history exists CKD HGB USE SMARTSET 25862 01/20/202401/19, 01/19/2023, 07/03/2022, Additional history exists Diabetic Foot Exam 01/30/2024 01/29/2023, 0 01/23/2022, 12/20/2020, Additional history exists TSH 03/19/2024 03/19/2023, 12/24, 11/27/2022, Additional history exists GFR 04/09/2024 10/09/2023, 12/24, 07/03/2022, Additional history exists HbA1c 04/09/2024 10/09/2023, 12/24, 07/03/2022, Additional history exists Diabetic Eye Exam 09/27/2024 09/28/2023, , 08/15/2022, Additional history exists Albumin/Creatinine Ratio 10/08/2024 024, 08/04/2022, 05/11/2021, Additional history exists CKD PHOS USE SMARTSET 80767 10/08/202409/23, 07/03/2022, 05/11/2021, Additional history exists DTaP,Tdap,and Td Vaccines (3 - Td or Tdap) 02/10/2029 02/10/2019, 08/29/2007 Pneumococcal Vaccine: 65+ Years Completed 10/07/2014, 08/18/2008 FOBT ANNUALLY,AGES 18-90 Discontinued 018, 04/19/2018, 09/29/2014, Additional history exists RETIRED - COLONOSCOPY-EVERY 5 YRS AGES 18-100 Discontinued 04/19/2018, 04/19/2018, 09/29/2014, Additional history exists Zoster Vaccines Completed 06/06/2021, 02/25/2021 Influenza Vaccine (FLU shot) Completed 03/05/2023, 02/23/2022, 05/11/2021, Additional history exists GARDASIL-HPV IMMUNIZATION SERIES Aged Out No longer eligible based on patient's age to complete this topic Hepatitis B Aged Out No longer eligi ble based on patient's age to complete this topic MENINGOCOCCAL (MENACTRA/MENVEO) Aged Out No longer eligible based on patient's age to complete this topic documented as of this encounter Medical Devices Implanted Type Area Stage Set Designer Device Identifier Shelf Expiration Date Model / Serial / Lot Lens Intraoc 19.5 - [id number] - [id number] Implanted:Qty: 1 on 03/17/2021 by Migel Dejesus MD at OR [facility] Left: Eye [employer] 10/22/2025 [id number] / [id number] / [id number] Lens Intraoc 20.0 - [id number] - [id number] Implanted:Qty: 1 on 03/31/2021 by Migel Dejesus MD at OR [facility] Right: Eye [employer] 12/22/2025 [id number] / [id number] / [id number] documented as of this encounter Advance Directives Healthcare Agents on File Name Relationship Healthcare Agent Relationshi p Communication Mimi Vieyra Adult Child Health Care Repr esentative (appointed verbally by patient or by statute hierarchy) Yanci Adkins Adult Child Health Care Repr esentative (appointed verbally by patient or by statute hierarchy) Care Teams Swatch Paster Relationship Specialty Start Date End Date Rosemary Valentine MD [address] [place] [address] [place] [phone] PCP - General Family Medicine 09/05/23 documented as of this encounter
--- OUTSIDE RECORDS SUMMARY | 2023-12-02 01:51 | External Medical Summary | Summary of Care ---
Author Name Unknown Organization [facility] Address [address] [place] [address] Phone [phone] Care Team Providers Care Fire Extinguisher Repairer Name Role Phone Rosemary Valentine MD Primary Care Provide r Encounter Details Date Type Department Care Team (Latest Contact Info) Description 11/22/2023 Medication Management [facility] [address] [place] [address] Diane Story, [facility] [address] [place] [address] Referred for medication therapy management* Allergies Active Allergy Reactions Criticality Noted Date Comments Codeine Nausea/vomiting 08/15/2011 Propoxyphene N-Acetaminophen Nausea/vomiting Low 08/24/2008 Iodinated Contrast Media Hives 02/06/2023 Iodine Hives 01/08/2001 Latex 09/26/2012 Contact dermititis Nitrofurantoin Rash 09/07/2014 Metformin 04/12/2021 documented as of this encounter (statuses as of 11/22/2023) Medications Medication Sig Dispensed Refills Start Date [...] disease, without long-term current use of insulin ([facility]) Use up to 4 times a day E11.9 1 Kit 10/03/2021 Active hydroCHLOROthiazide 12.5 MG Oral Tablet (Hydrodiuril) TAKE ONE TABLET BY MOUTH IN THE MORNING 90 Tablet 3 08/17/2022 Active OneTouch UltraSoft LancetsIndications: Type 2 diabetes mellitus with stage 3a chronic kidney disease, without long-term current use of insulin ([facility]) Use once daily to check glucose E11.9 [...] disease, without long-term current use of insulin ([facility]) Inject 0.75 mg under the skin once [...] mouth every 8 hours as needed. Active ALPRAZolam 0.5 MG Oral Tablet (xaNAX)Indications: Anxiety take 1 tablet in the morning and evening if needed for anxiety 60 Tablet 10/30/2023 Active Ondansetron HCl 4 MG Oral Tablet [...] bedtime as needed for Sleep. Relaxium Active Hospital, Clinic, or Other Facility Administered Medication Ordered Dose Route Frequency Start Date End Date Status vitamin b-12 (Cyanocobalamin) inj 1,000 mcgIndications:Vitamin B12 deficiency 1000 mcg IM [id number] 02/06/2023 01/08/2024 Active documented as of this encounter (statuses as of 11/22/2023) Active Problems Problem Noted Date Diagnosed Date [...] as of this encounter (statuses as of 11/22/2023) Resolved Problems Problem Noted Date Diagnosed Date [...] Taxonomy. Impaired fasting glucose 06/23/200607/2011 LOC PRIM [id number] 04/16/200609/24 LOC PRIM OSTEOARTH-ANKLE 04/16/2006 Sprain of [...] as of this encounter (statuses as of 11/22/2023) Immunizations Name Administration Dates Next Due Pneumococcal Conjugate Vacc, 13 Valent (Prevnar) 10/07/2014 Pneumococcal Polysaccharide PPV23 (Pneumovax) 08/18/2008 Season Influenza, Quad, PF, Adjuvanted, 65+ Yrs, IM (FLUAD) 05/06/2020 Seasonal Influenza Virus Vac cine, Unspecified Formulation 02/26/2019,04/23/2018,03/05/2017,03/22,03/29/2015,04/23/2014,04/21/2013 ,03/25/2012,03/25/2011,03/25/2010,10/0 06/2008,04/06/2008,03/28/2004, 3,04/14/2002,05/20/2001 Seasonal Influenza, PF, 6 M & above, IM , (FluLaval or Fluzone) 04/23/2018 Seasonal Influenza, Quadriva lent Hd (Fluzone Hd) 03/05/2023,05/11/2021 Seasonal Influenza, Quadriva lent, No Preserve, IM 03/05/2017,03/22/2016,03/29/2015 Seasonal Influenza, Split, I IV3, With Preserve, Inj 04/23/2014,04/21/2013,03/25/2012,03/25,03/25/2010,03/25/2009,04/06/2008 Seasonal Influenza, Trivalen t, Adjuvanted, 65+ yrs [...] on file documented as of this encounter Progress Notes * Ashlyn Ortiz, personal banking representative - 11/22/2023 8:47 PM EDT Violeta Calvert is a 78 year old female. TMR Interventions TMR Medication Assessment - Maintenance Inhaler Technique: TRELEGY AER 200MCG Incomplete Encounter MTPs No medication therapy recommendations to display Complete Encounter MTPs Referred for medication therapy management Current Medication: [id number]-Ouskhr 200-62.5-25 MCG/ACT Aerosol Powder Breath Activated (Trelegy Ellipta) Rationale: Patient Education - Needs Medication Assessment - Adherence Recommendation: Provide Education Status: Patient Agreed Note: TMR for maintenance inhaler technique Assessment & Plan Indication, effectiveness, safety and convenience of her medications were reviewed today. The patient's medical conditions were assessed, evaluated, and deemed meeting goals of drug therapy, with thefollowing exceptions. Ashlyn Ortiz, personal banking representative 11/22/2023, 8:47 PM documented in this encounter Plan of Treatment Upcoming Encounters Date Type Department Care Team (Late st Contact Info) Description 11/30/2023 4:20 PM EDT Nurse Only Ancillary [address] [place] [phone] Nurse Samantha [address] [place] [address] 12/17/2023 5:40 PM EDT Office Visit Family Medicine [address] [place] [phone] Rosemary Valentine MD [address] [place] [address] [place] [address] 02/01/2024 3:00 PM EDT Nurse Only Ancillary [address] [place] [address] Nurse Kateryna [address] [place] [address] 04/24/2024 3:30 PM EDT Office Visit Cardiology [address] [place] [address] Herberth Denny PA-C [address] [place] [address] Health Maintenance Due Date Last Done Comments DXA Scan 01/04/2023 01/05/2020, 01/04/2015 COVID-19 Vaccine ( season) 2023 Colonoscopy 04/19/2023 04/19/2018, 03/26, 09/29/2014, Additional history exists CKD HGB USE SMARTSET 31829 01/20/202401/19, 01/19/2023, 07/03/2022, Additional history exists Diabetic [...] Additional history exists CKD PHOS USE SMARTSET 16256 10/08/202409/23, 07/03/2022, 05/11/2021, Additional history exists DTaP,Tdap,and [...] this encounter Medical Devices Implanted Type Area Event Designer Device Identifier Shelf Expiration Date Model / Serial / Lot Lens Intraoc 19.5 - [id number] - [id number] Implanted:Qty: 1 on 03/17/2021 by Migel Dejesus MD at OR [facility] Left: Eye [employer]OM[employer] 10/22/2025 [id number] / [id number] / [id number] Lens Intraoc 20.0 - [id number] - [id number] Implanted:Qty: 1 on 03/31/2021 by Migel Dejesus MD at OR [facility] Right: Eye [employer]CH [employer] LOMB 12/22/2025 [id number] / [id number] / [id number] documented as of this encounter Visit Diagnoses Diagnosis Referred for medication therapy management- Primary Encounter for long-term (current) use of other medications documented in this encounter Advance Directives Healthcare Agents on File Name Relationship Healthcare Agent Relationshi p Communication Mimi Jarrell Adult Child Health Care Repr esentative (appointed verbally by patient or by statute hierarchy) Yanci Adkins Adult Child Health Care Repr esentative (appointed verbally by patient or by statute hierarchy) Care Teams Fire Extinguisher Repairer Relationship Specialty Start Date End Date Rosemary Valentine MD [address] [place] [address] [place] [address] PCP - General Family Medicine 09/05/23 documented as of this encounter
--- OUTSIDE RECORDS SUMMARY | 2023-12-02 01:51 | External Medical Summary | Summary of Care ---
Author Name Unknown Organization [facility] Address [address] [place] [address] Phone [phone] Care Team Providers Care Daycare Teacher Name Role Phone Rosemary Valentine MD Primary Care Provide r Encounter Details Date Type Department Care Team (Late st Contact Info) Description 11/13/2023 Population Health External Data Unspecified Department Allergies Active Allergy Reactions Criticality Noted Date Comments Codeine Nausea/vomiting 08/15/2011 Propoxyphene N-Acetaminophen Nausea/vomiting Low 08/24/2008 Iodinated Contrast Media Hives 02/06/2023 Iodine Hives 01/08/2001 Latex 09/26/2012 Contact dermititis Nitrofurantoin Rash 09/07/2014 Metformin 04/12/2021 documented as of this encounter (statuses as of 11/14/2023) Medications Medication Sig Dispensed Refills Start Date [...] disease, without long-term current use of insulin ([facility]) Use up to 4 times a day E11.9 1 Kit 10/03/2021 Active hydroCHLOROthiazide 12.5 MG Oral Tablet (Hydrodiuril) TAKE ONE TABLET BY MOUTH IN THE MORNING 90 Tablet 3 08/17/2022 Active OneTouch UltraSoft LancetsIndications: Type 2 diabetes mellitus with stage 3a chronic kidney disease, without long-term current use of insulin ([facility]) Use once daily to check glucose E11.9 [...] of major depressive disorder without prior episode ([facility]) TAKE 1 - 2 TABLETS BY MOUTH [...] 1,000 mcgIndications:Vitamin B12 deficiency 1000 mcg IM [id number] 02/06/2023 01/08/2024 Active documented as of this encounter (statuses as of 11/14/2023) Active Problems Problem Noted Date Diagnosed Date [...] as of this encounter (statuses as of 11/14/2023) Resolved Problems Problem Noted Date Diagnosed Date [...] Taxonomy. Impaired fasting glucose 06/23/200607/2011 LOC PRIM [id number] 04/16/200609/24 LOC PRIM OSTEOARTH-ANKLE 04/16/2006 Sprain of [...] as of this encounter (statuses as of 11/14/2023) Immunizations Name Administration Dates Next Due Pneumococcal Conjugate Vacc, 13 Valent (Prevnar) 10/07/2014 Pneumococcal Polysaccharide PPV23 (Pneumovax) 08/18/2008 Season Influenza, Quad, PF, Adjuvanted, 65+ Yrs, IM (FLUAD) 05/06/2020 Seasonal Influenza Virus Vac cine, Unspecified Formulation 02/26/2019,04/23/2018,03/05/2017,03/22,03/29/2015,04/23/2014,04/21/2013 ,03/25/2012,03/25/2011,03/25/2010,06/2008,04/06/2008,03/28/2004, 3,04/14/2002,05/20/2001 Seasonal Influenza, PF, 6 M & above, IM , (FluLaval or Fluzone) 04/23/2018 Seasonal Influenza, Quadriva lent Hd (Fluzone Hd) 03/05/2023,05/11/2021 Seasonal Influenza, Quadriva lent, No Preserve, IM 03/05/2017,03/22/2016,03/29/2015 Seasonal Influenza, Split, I IV3, With Preserve, Inj 04/23/2014,04/21/2013,03/25/2012,03/25,03/25/2010,03/25/2009,04/06/2008 Seasonal Influenza, Trivalen t, Adjuvanted, 65+ yrs 02/26/2019 Seasonal Influenza, Trivalen t, High Dose, No Preserve, IM 02/23/2022 TDAP (age 10 and older)(Boostrix) 02/10/2019 TDAP (age 11 and older)(Adacel) 08/29/2007 Zoster Vaccine Recombinant (Shingrix) 06/06/2021 ,02/25/2021 [...] money to buy more. Never true 07/30/19 Within the past 12 months, t he [...] on file documented as of this encounter Plan of Treatment Upcoming Encounters Date Type Department Care Team (Late st Contact Info) Description 11/30/2023 4:20 PM EDT Nurse Only Ancillary [address] [place] [address] Samantha Nurse [address] [place] [address] 12/17/2023 5:40 PM EDT Office Visit Family Medicine [address] [place] [phone] Rosemary Valentine MD [address] [place] [address] [place] [address] 02/01/2024 3:00 PM EDT Nurse Only Ancillary [address] [place] [address] [place], Nurse [address] [place] [address] 04/24/2024 3:30 PM EDT Office Visit Cardiology [address] [place] [address] Herberth Denny PATalC [address] [place] [address] Health Maintenance Due Date Last Done Comments DXA Scan 01/04/2023 01/05/2020, 01/04/2015 COVID-19 Vaccine ( season) 2023 Colonoscopy 04/19/2023 04/19/2018, 03/26, 09/29/2014, Additional history exists CKD HGB USE SMARTSET 33451 01/20/202401/19, 01/19/2023, 07/03/2022, Additional history exists Diabetic [...] Additional history exists CKD PHOS USE SMARTSET 14440 10/08/2024 0411/2023, 07/03/2022, 05/11/2021, Additional history exists DTaP,Tdap,and Td [...] this encounter Medical Devices Implanted Type Area Handle Bar Assembler Device Identifier Shelf Expiration Date Model / Serial / Lot Lens Intraoc 19.5 - [id number] - [id number] Implanted:Qty: 1 on 03/17/2021 by Migel Dejesus MD at OR [facility] Left: Eye [employer]OM[employer] 10/22/2025 [id number] / [id number] / [id number] Lens Intraoc 20.0 - [id number] - [id number] Implanted:Qty: 1 on 03/31/2021 by Migel Dejesus MD at OR [facility] Right: Eye BAUSCH [employer] LOMB 12/22/2025 [id number] / [id number] / [id number] documented as of this encounter Advance Directives Healthcare Agents on File Name Relationship Healthcare Agent Relationshi p Communication Mimi Vieyra Adult Child Health Care Repr esentative (appointed verbally by patient or by statute hierarchy) Yanci Adkins Adult Child Health Care Repr esentative (appointed verbally by patient or by statute hierarchy) Care Teams Daycare Teacher Relationship Specialty Start Date End Date Rosemary Valentine MD [address] [place] [address] [place] [phone] PCP - General Family Medicine 09/05/23 documented as of this encounter
--- OUTSIDE RECORDS SUMMARY | 2023-12-02 01:51 | External Medical Summary ---
Author Name Unknown Address Unknown Organization [id number]:[facility] [place] [address] [place] [facility] Laboratory Report Ordering Provider Test Date Status PEDRO LESTER 11/30/2023 16:47:28 Final Observation Date Value Abnormality Reference (Units) Status Bacteria identified in Specimen by Culture 11/30/2023 16:47:28 No significant growth Final Test: Culture, Urine, Quanti tative
Specimen Source: Urine, Clean Catch
Specimen Type: Urine
Specimen Date: 11/30/2023 1647
Result Date: 12/01/2023 1558
Result Status: Final result
Resulting Lab: [facility]
[address]
[place] [address]

CULTURE

No significant growth

null Performing Location [facility] [address] [facility] [address]
--- OUTSIDE RECORDS SUMMARY | 2023-12-02 01:51 | External Medical Summary | Summary of Care ---
Author Name Unknown Organization [facility] Address [address] [place] [address] Phone [phone] Care Team Providers Care Surgery Aide Name Role Phone Randy Valentine MD Primary Care Provide r Reason for Visit * Reason Onset Date Comments Medication Refill 11/28/2023 Encounter Details Date Type Department Care Team (Late st Contact Info) Description 11/28/2023 Refill Family Medicine [address] [phone] Randy Valentine MD [address] [place], [place] [address] [address] Anxiety Allergies Active Allergy Reactions Criticality Noted Date Comments Codeine Nausea/vomiting 08/15/2011 Propoxyphene N-Acetaminophen Nausea/vomiting Low 08/24/2008 Iodinated Contrast Media Hives 02/06/2023 Iodine Hives 01/08/2001 Latex 09/26/2012 Contact dermititis Nitrofurantoin Rash 09/07/2014 Metformin 04/12/2021 documented as of this encounter (statuses as of 11/29/2023) Medications Medication Sig Dispensed Refills Start Date End Date Status ASPIRIN 81 MG PO TABSIndications:he art Take 1 Tablet by mouth in the morning. Active Iron-Vitamin C 65-125 MG Oral Tablet Take 1 Tablet by mouth in the morning. 90 Tab 3 01/25/2016 Active Polyethylene Glycol 3350 17 GM/SCOOP Oral PowderIndications: constipation Take 17 g by mouth at bedtime as needed for Constipation. Active Loratadine 10 MG Oral CapsuleIndications :allergies Take 1 Capsule by mouth in the morning. Active Cyanocobalamin 1000 MCG/ML Injection Solution (Cyanocobalamin) Inject as directed 1,000 mcg every 30 days . 1 mL 11 09/13/2021 Active OneTouch Verio w/Device KitIndications:Typ e 2 diabetes mellitus with stage 3a chronic kidney disease, without long-term current use of insulin ([facility]) Use up to 4 times a day E11.9 1 Kit 10/03/2021 Active hydroCHLOROthiazid e 12.5 MG Oral Tablet (Hydrodiuril) TAKE ONE TABLET BY MOUTH IN THE MORNING 90 Tablet 3 08/17/2022 Active OneTouch UltraSoft LancetsIndications :Type 2 diabetes mellitus with stage 3a chronic kidney disease, without long-term current use of insulin ([facility]) Use once daily to check [...] Sodium 20 MG Oral Tablet Delayed Release (Protonix)Indicati ons:Gastroesophage al reflux disease with esophagitis without hemorrhage Take 1 Tablet by mouth in the morning and 1 Tablet in the evening. 180 Tablet 1 01/19/2023 Active Ezetimibe 10 MG Oral Tablet (Zetia)Indications :Dyslipidemia, goal LDL below 70 TAKE ONE TABLET BY MOUTH IN THE MORNING 90 Tablet 3 03/05/2023 Active Albuterol Sulfate HFA 108 (90 Base) MCG/ACT Inhalation Aerosol SolutionIndication s:Intermittent asthma with reliever use up to twice per week without complication,SOB (shortness of breath) Inhale 2 Puffs by mouth every 6 hours as needed for Shortness of Breath or Wheezing. 18 g 5 06/07/2023 Active Sertraline HCl 100 MG Oral Tablet (Zoloft)Indication s:Anxiety, generalized,Curren t moderate episode of major depressive disorder without prior episode (HCC) TAKE 1 - 2 TABLETS BY MOUTH EVERY DAY 200 Tablet 2 07/28/2023 Active Fluticasone Propionate 50 MCG/ACT Nasal Suspension (Flonase)Indicatio ns:Seasonal allergic rhinitis due to pollen Administer 2 [...] Active Trulicity 0.75 MG/0.5ML Subcutaneous Solution Pen-injector (Dulaglutide)Indic ations:Type 2 diabetes mellitus with stage 3a chronic kidney disease, without long-term current use of insulin ([facility]) Inject 0.75 mg under the skin once a week. (on Mondays) 6 mL 1 09/25/2023 Active Olopatadine HCl 0.1 % Ophthalmic Solution (Pataday) Instill 1 Drop into both eyes in the morning and 1 Drop before bedtime. Active Loteprednol Etabonate 0.5 % Ophthalmic Suspension (Lotemax) Instill 1 Drop into both eyes 2 times a day. 06/20/2023 Active Fluticasone-Umecli din-Vilant 200-62.5-25 MCG/ACT Aerosol Powder Breath Activated (Trelegy Ellipta) Inhale 1 Puff by mouth daily. 60 Blister Dosing Unit 3 09/26/2023 Active Acetaminophen ER 650 MG Oral Tablet Extended Release (Arthritis Pain Relief) Take 1 Tablet by mouth every 8 hours as needed. Active Ondansetron HCl 4 MG Oral Tablet (Zofran)Indication s:Nausea without vomiting take 1 tablet every 6 hours as needed for nausea. 30 Tablet 2 10/30/2023 Active OneTouch Verio In Vitro Strip (Glucose Blood)Indications: Type 2 diabetes mellitus with stage 3a chronic kidney disease, without long-term current use of insulin (HCC) Use once daily to check glucose E11.9 100 Strip 5 10/30/2023 Active Rosuvastatin Calcium 10 MG Oral Tablet (Crestor)Indicatio ns:Dyslipidemia, goal LDL below 100 Take 1 Tablet by mouth in the morning. 90 Tablet 3 10/29/2023 Active NATURAL SUPPLEMENT Take 1-2 Tablets by mouth at bedtime as needed for Sleep. Relaxium Active ALPRAZolam 0.5 MG Oral Tablet (xaNAX)Indications :Anxiety take 1 tablet in the morning and evening if needed for anxiety 60 Tablet 11/29/2023 Active ALPRAZolam 0.5 MG Oral Tablet (xaNAX)Indications :Anxiety take 1 tablet in the morning and evening if needed for anxiety 60 Tablet 10/30/2023 Discontinue d(Refill) Hospital, Clinic, or Other Facility Administered Medication Ordered Dose Route Frequency Start Date End Date Status vitamin b-12 (Cyanocobalamin) inj 1,000 mcgIndications:Vitamin B12 deficiency 1000 mcg IM [id number] 02/06/2023 01/08/2024 Active documented as of this encounter (statuses as of 11/29/2023) Active Problems Problem Noted Date Diagnosed Date [...] as of this encounter (statuses as of 11/29/2023) Resolved Problems Problem Noted Date Diagnosed Date [...] Taxonomy. Impaired fasting glucose 06/23/200607/2011 LOC PRIM [id number] 04/16/200609/24 LOC PRIM OSTEOARTH-ANKLE 04/16/2006 Sprain of [...] as of this encounter (statuses as of 11/29/2023) Immunizations Name Administration Dates Next Due Pneumococcal [...] as of this encounter Miscellaneous Notes * Telephone Encounter - Randy Valentine MD - 11/29/2023 10:30 AM EDT Signed Prescriptions: Disp Refills ALPRAZolam 0.5 MG Oral Tablet (xaNAX) 60 Tab*0 Sig: take 1 tablet in the morning and evening if needed for anxiety Authorizing Provider: RANDY VALENTINE * Telephone Encounter - Morgan Biggs [facility] - 11/29/2023 10:22 AM EDTPending Prescriptions: Disp Refills ALPRAZolam 0.5 MG Oral Tablet (xaNAX) 60 Tab*0 Sig: take 1 tablet in the morning and evening if needed for anxiety * Telephone Encounter - Morgan Biggs [facility] - 11/29/2023 10:22 AM EDT I have reviewed the patients controlled substance dispensing history in the Prescription Drug Monitoring Program in compliance with the [facility] regulations before prescribing a controlled substance. PDMP checked on 11/29/2023. Pending Prescriptions: Disp Refills ALPRAZolam 0.5 MG Oral Tablet (xaNAX) 60 Tab*0 Sig: take 1 tablet in the morning and evening if needed for anxiety Last Visit: 08/28/2023 (in office), Visit date not found (telemedicine) Next Visit: 12/17/2023 Date medication was last filled: 10/30/23 Date medication is due for refill: 11/28/23 Pharmacy: [id number] Is this request for a controlled substance? Yes and Urine Drug Screen Not completed Toxicology results: No results found. However, due to the size of the patient record, not all encounters were searched.Please check Results Review for a complete set of results. Please approve if appropriate. Thanks, Morgan Biggs Rph, Pharm D. Clinical Pharmacist Centralized Clinical Pharmacy Services/[facility] [phone] 11/29/2023,10:22 AM * Telephone Encounter - Henny Clark PHARM Tech - 11/28/2023 8:40 AM EDT Pt states this dose is not as effective anymore. Did you pend patient's preferred pharmacy and medication before forwarding?yes Pharmacy: [id number] [address] [facility] Pending Prescriptions: Disp Refills ALPRAZolam 0.5 MG Oral Tablet (xaNAX) 60 Tab*0 Sig: take 1 tablet in the morning and evening if needed for anxiety Last Visit: 08/28/2023 (in office), Visit date not found (telemedicine) Next Visit: 12/17/2023 If no future appointments scheduled, and last appointment is greater than a year ago, please schedule patient for a follow-up appointment Last date the medication was ordered: 10/30/23 Is this request for a controlled substance?Yes, What was the last refill date 10/30/23 w/ quantity 60and dosage 0.5mg and Urine Drug Screen Not completed Urine Drug Screen:No results found. However, due to the size of the patient record, not all encounters were searched. Please check Results Review for a complete set of results. Patient Phone Numbers Labs: Lab Results Component Value Date/Time CREAT 1.0 10/09/2023 03:34 PM CREAT 1.0 02/05/2020 03:05 PM CREAT 0.6 (L) 07/15/1996 09:33 AM POTASSIUM 4.0 10/09/2023 03:34 PM POTASSIUM 4.7 02/05/2020 03:05 PM POTASSIUM 4.1 07/15/1996 09:33 AM TSH 8.05 (H) 03/19/2023 03:13 PM TSH 1.00 02/05/2020 03:05 PM TSH 20.94 (H) 07/15/1996 09:33 AM LDLCALC 62 11/27/2022 02:49 PM LDLCALC 104 07/29/2019 04:37 PM LDLCALC 172. (HH) 07/15/1996 09:33 AM LDLDIRECT 106 01/24/2022 03:36 PM LDLDIRECT NOT APPLICABLE 07/29/2019 04:37 PM LDLDIRECT 219 (H) 05/13/2007 01:20 PM ALT 18 10/09/2023 03:34 PM ALT 19 02/05/2020 03:05 PM HGBA1C 6.4 (H) 10/09/2023 03:34 PM HGBA1C 6.8 (H) 02/05/2020 03:05 PM documented in this encounter Plan of Treatment Upcoming Encounters Date Type Department Care Team (Late st Contact Info) Description 11/30/2023 4:20 PM EDT Nurse Only Ancillary [address] [place] [address] Nurse Samantha [address] [place] [address] 12/17/2023 5:40 PM EDT Office Visit Family Medicine [address] [place] [phone] Randy Valentine MD [address] [place] [address] [place] [address] 02/01/2024 3:00 PM EDT Nurse Only Ancillary [address] [place] [address] Nurse Kateryna [address] [place] [address] 04/24/2024 3:30 PM EDT Office Visit Cardiology [address] [place] [address] Herberth Denny PA-C [address] [place] [address] Health Maintenance Due Date Last Done Comments DXA Scan 01/04/2023 01/05/2020, 01/04/2015 COVID-19 Vaccine ( season) 2023 Colonoscopy 04/19/2023 04/19/2018, 03/26, 09/29/2014, Additional history exists CKD HGB USE SMARTSET 96584 01/20/202401/19, 01/19/2023, 07/03/2022, Additional history exists Diabetic [...] Additional history exists CKD PHOS USE SMARTSET 81689 10/08/202409/23, 07/03/2022, 05/11/2021, Additional history exists DTaP,Tdap,and [...] this encounter Medical Devices Implanted Type Area Liquor Inspector Device Identifier Shelf Expiration Date Model / Serial / Lot Lens Intraoc 19.5 - [id number] - [id number] Implanted:Qty: 1 on 03/17/2021 by Migel Dejesus MD at OR [facility] Left: Eye [employer]OM[employer] 10/22/2025 [id number] / [id number] / [id number] Lens Intraoc 20.0 - [id number] - [id number] Implanted:Qty: 1 on 03/31/2021 by Migel Dejesus MD at OR [facility] Right: Eye BAUSCH [employer] LOMB 12/22/2025 [id number] / [id number] / [id number] documented as of this encounter Visit Diagnoses Diagnosis Anxiety Anxiety state, unspecified documented in this encounter Advance Directives Healthcare Agents on File Name Relationship Healthcare Agent Relationshi p Communication Mimi Vieyra Adult Child Health Care Repr esentative (appointed verbally by patient or by statute hierarchy) Yanci Adkins Adult Child Health Care Repr esentative (appointed verbally by patient or by statute hierarchy) Care Teams Surgery Aide Relationship Specialty Start Date End Date Randy Valentine MD [address] [place] [address] [place] [address] PCP - General Family Medicine 09/05/23 documented as of this encounter
--- OUTSIDE RECORDS SUMMARY | 2023-12-02 01:51 | External Medical Summary ---
Author Name Unknown Address Unknown Organization K01:[facility] - [address] [facility] [id number] Laboratory Report Ordering Provider Test Date Status PEDRO LESTER 11/30/2023 16:47:28 Final Observation Date Value Abnormality Reference (Units ) Status Color of Urine by Auto 11/30/2023 16:47:28 Yellow Colorless, Light Yellow, Yellow, Dark Yellow Final Clarity, Urine 11/30/2023 16:47:28 Clear Clear Final Glucose [Mass/volume] in Urine by Automated test strip 11/30/2023 16:47:28 Negative Negative (mg/dL) Final Bilirubin.total [Presence] in Urine by Automated test strip 11/30/2023 16:47:28 Negative Negative Final Ketones [Mass/volume] in Urine by Automated test strip 11/30/2023 16:47:28 Negative Negative (mg/dL) Final Specific gravity, Urine 11/30/2023 16:47:28 1.027 1.003-1.030 Final Hemoglobin [Presence] in Urine by Automated test strip 11/30/2023 16:47:28 Negative Negative Final pH, Urine 11/30/2023 16:47:28 6.0 5.0-7.5 (Units) Final Protein [Mass/volume] in Urine by Automated test strip 11/30/2023 16:47:28 30 Abnormal Negative (mg/dL) Final Urobilinogen [Mass/volume] in Urine by Automated test strip 11/30/2023 16:47:28 Normal Normal (mg/dL) Final Nitrite [Presence] in Urine by Automated test strip 11/30/2023 16:47:28 Negative Negative Final Leukocyte esterase [Presence] in Urine by Automated test strip 11/30/2023 16:47:28 Moderate Abnormal Negative Final RBC, Urine 11/30/2023 16:47:28 3-5 Abnormal 0-2 (/HPF) Final WBC, Urine 11/30/2023 16:47:28 6-9 Abnormal 0-2 (/HPF) Final Bacteria [#/area] in Urine sediment by Microscopy high power field 11/30/2023 16:47:28 101-150 Abnormal 0-25 (/HPF) Final Epithelial cells.squamous [#/area] in Urine sediment by Microscopy high power field 11/30/2023 16:47:28 Many Abnormal None (/HPF) Final Calcium oxalate crystals [#/area] in Urine sediment by Microscopy high power field 11/30/2023 16:47:28 5-9 Abnormal None (/HPF) Final Epithelial cells.renal [#/area] in Urine sediment by Microscopy high power field 11/30/2023 16:47:28 1-4 Abnormal None (/HPF) Final Performing Location [facility] - [address] [facility] [address]
--- OUTSIDE RECORDS SUMMARY | 2023-12-02 01:51 | External Medical Summary | Summary of Care ---
Author Name Unknown Organization [facility] Address [address] [place] [address] Phone [phone] Care Team Providers Care Position Classifier Name Role Phone Rosemary Valentine MD Primary Care Provide r Reason for Visit * Reason Onset Date Comments Medication Refill 11/09/2023 Encounter Details Date Type Department Care Team (Late st Contact Info) Description 11/09/2023 Telephone Family Medicine [address] [phone] Rosemary Valentine MD [address] [place], [place] [address] [address] Medication Refill Allergies Active Allergy Reactions Criticality Noted Date Comments Codeine Nausea/vomiting 08/15/2011 Propoxyphene N-Acetaminophen Nausea/vomiting Low 08/24/2008 Iodinated Contrast Media Hives 02/06/2023 Iodine Hives 01/08/2001 Latex 09/26/2012 Contact dermititis Nitrofurantoin Rash 09/07/2014 Metformin 04/12/2021 documented as of this encounter (statuses as of 11/09/2023) Medications Medication Sig Dispensed Refills Start Date End Date Status ASPIRIN 81 MG PO TABSIndications:hea rt Take 1 Tablet by mouth in the morning. 0 Active Iron-Vitamin C 65-125 MG Oral Tablet Take 1 Tablet by mouth in the morning. 90 Tab 3 01/25/2016 Active Polyethylene Glycol 3350 17 GM/SCOOP Oral PowderIndications:c onstipation Take 17 g by mouth at bedtime as needed for Constipation. 0 Active Loratadine 10 MG Oral CapsuleIndications: allergies Take 1 Capsule by mouth in the morning. 0 Active Cyanocobalamin 1000 MCG/ML Injection Solution (Cyanocobalamin) Inject as directed 1,000 mcg every 30 days . 1 mL 11 09/13/2021 Active OneTouch Verio w/Device KitIndications:Type 2 diabetes mellitus with stage 3a chronic kidney disease, without long-term current use of insulin ([facility]) Use up to 4 times a day E11.9 1 Kit 0 10/03/2021 Active hydroCHLOROthiazide 12.5 MG Oral Tablet (Hydrodiuril) TAKE ONE TABLET BY MOUTH IN THE MORNING 90 Tablet 3 08/17/2022 Active OneTouch UltraSoft LancetsIndications: Type 2 diabetes mellitus with stage 3a chronic kidney disease, without long-term current use of insulin ([facility]) Use once daily to check glucose E11.9 100 Each 5 08/21/2022 Active Acetaminophen ER 650 MG Oral Tablet Extended Release Take 1 Tablet by mouth every 8 hours as needed. 0 Active Docusate Sodium 100 MG Oral Capsule (Colace) Take 2 Capsules by mouth at bedtime as needed for Constipation. Patient taking daily at bedtime 0 Active Pantoprazole Sodium 20 MG Oral Tablet [...] disease, without long-term current use of insulin ([facility]) Inject 0.75 mg under the skin once a week. (on Mondays) 6 mL 1 09/25/2023 Active Olopatadine HCl 0.1 % Ophthalmic Solution (Pataday) Instill 1 Drop into both eyes in the morning and 1 Drop before bedtime. 0 Active Loteprednol Etabonate 0.5 % Ophthalmic Suspension (Lotemax) Instill 1 Drop into both eyes 2 times a day. 0 06/20/2023 Active Fluticasone-Umeclid in-Vilant 200-62.5-25 MCG/ACT Aerosol Powder Breath Activated (Trelegy Ellipta) Inhale 1 Puff by mouth daily. 60 Blister Dosing Unit 3 09/26/2023 Active Acetaminophen ER 650 MG Oral Tablet Extended Release (Arthritis Pain Relief) Take 1 Tablet by mouth every 8 hours as needed. 0 Active ALPRAZolam 0.5 MG Oral Tablet (xaNAX)Indications: Anxiety take 1 tablet in the morning and evening if needed for anxiety 60 Tablet 0 10/30/2023 Active Ondansetron HCl 4 MG Oral Tablet (Zofran)Indications :Nausea without vomiting take 1 tablet every 6 hours as needed for nausea. 30 Tablet 2 10/30/2023 Active OneTouch Verio In Vitro Strip (Glucose Blood)Indications:T ype 2 diabetes mellitus with stage 3a chronic kidney disease, without long-term current use of insulin ([facility]) Use once daily to check glucose E11.9 100 Strip 5 10/30/2023 Active Rosuvastatin Calcium 10 MG Oral Tablet (Crestor)Indication s:Dyslipidemia, goal LDL below 100 Take 1 Tablet by mouth in the morning. 90 Tablet 3 10/29/2023 Active NATURAL SUPPLEMENT Take 1-2 Tablets by mouth at bedtime as needed for Sleep. Relaxium 0 Active Hospital, Clinic, or Other Facility Administered Medication Ordered Dose Route Frequency Start Date End Date Status vitamin b-12 (Cyanocobalamin) inj 1,000 mcgIndications:Vitamin B12 deficiency 1000 mcg IM [id number] 02/06/2023 01/08/2024 Active documented as of this encounter (statuses as of 11/09/2023) Active Problems Problem Noted Date Diagnosed Date [...] as of this encounter (statuses as of 11/09/2023) Resolved Problems Problem Noted Date Diagnosed Date [...] Taxonomy. Impaired fasting glucose 06/23/200607/2011 LOC PRIM [id number] 04/16/200609/24 LOC PRIM OSTEOARTH-ANKLE 04/16/2006 Sprain of [...] as of this encounter (statuses as of 11/09/2023) Immunizations Name Administration Dates Next Due Pneumococcal [...] encounter Miscellaneous Notes * Telephone Encounter - Arianna Fitzgerald [address], [facility] - 11/09/2023 9:01 AM EDT Pt clarified she took emetrol (not imitrex) for upset stomach and didn't take her levothyroxine today Wanted to know if she could still take levothyroxine - counseled pt one day wont hurt of not takingit first thing in the morning - pt verbalized understanding Thank you, Arianna Fitzgerald, PharmEris Clinical Pharmacist [facility] ([facility]) 11/09/23 9:08 AM [phone] * Telephone Encounter - Eliane Ray director fraud - 11/09/2023 8:59 AM EDT Pt calling to request Levothyroxine. Informed pt that RX is available at their pharmacy. Pt verbalized understanding and stated they will check with their pharmacy regarding this medication. Patient stating she took Imitrex and is asking if it is all to take her thyroid medication Transferred to [facility]. Thank you, Eliane Ray Woodworking Machine Operator I [facility] ([facility]) 11/09/2023,8:59 AM documented in this encounter Plan of Treatment Upcoming Encounters Date Type Department Care Team (Late st Contact Info) Description 11/30/2023 4:20 PM EDT Nurse Only Ancillary [address] [place] [address] Nurse Samantha [address] [place] [address] 12/17/2023 5:40 PM EDT Office Visit Family Medicine [address] [place] [phone] Rosemary Valentine MD [address] [place] [address] [place] [address] 02/01/2024 3:00 PM EDT Nurse Only Ancillary [address] [place] [address] Nurse Kateryna [address] [place] [address] 04/24/2024 3:30 PM EDT Office Visit Cardiology [address] [place] [address] Herberth Denny PA-C [address] [place] [address] Health Maintenance Due Date Last Done Comments DXA Scan 01/04/2023 01/05/2020, 01/04/2015 COVID-19 Vaccine ( season) 2023 Colonoscopy 04/19/2023 04/19/2018, 03/26, 09/29/2014, Additional history exists CKD HGB USE SMARTSET 65502 01/20/202401/19, 01/19/2023, 07/03/2022, Additional history exists Diabetic [...] Additional history exists CKD PHOS USE SMARTSET 50120 10/08/202409/23, 07/03/2022, 05/11/2021, Additional history exists DTaP,Tdap,and [...] this encounter Medical Devices Implanted Type Area Aoc Plans Intelligence Officer Chief Device Identifier Shelf Expiration Date Model / Serial / Lot Lens Intraoc 19.5 - [id number] - [id number] Implanted:Qty: 1 on 03/17/2021 by Migel Dejesus MD at OR [facility] Left: Eye BAUSCH & LOMB 10/22/2025 [id number] / [id number] / [id number] Lens Intraoc 20.0 - [id number] - [id number] Implanted:Qty: 1 on 03/31/2021 by Migel Dejesus MD at [facility] Right: Eye BAUSCH & LOMB 12/22/2025 [id number] / [id number] / [id number] documented as of this encounter Advance Directives Healthcare Agents on File Name Relationship Healthcare Agent Relationshi p Communication Mimi Vieyra Adult Child Health Care Repr esentative (appointed verbally by patient or by statute hierarchy) Yanci Adkins Adult Child Health Care Repr esentative (appointed verbally by patient or by statute hierarchy) Care Teams Position Classifier Relationship Specialty Start Date End Date Rosemary Valentine MD [address] [place] [address] [place] [address] PCP - General Family Medicine 09/05/23 documented as of this encounter
--- OUTSIDE RECORDS SUMMARY | 2023-12-02 01:51 | External Medical Summary | Summary of Care ---
Author Name Unknown Organization [facility] Address [address] [place] [address] Phone [phone] Care Team Providers Care Filling Separator Name Role Phone Rosemary Valentine MD Primary Care Provide r Reason for Visit * Reason Comments Outpatient Testing Encounter Details Date Type Department Care Team (Late st Contact Info) Description 11/30/2023 4:00 PM EDT Laboratory Laboratory [address] [place] [phone] , Specimen Drop Off [address] [place] [address] Suspected urinary tract infection Allergies Active Allergy Reactions Criticality Noted Date [...] without long-term current use of insulin ([facility]) Use up to 4 times a day E11.9 1 Kit 10/03/2021 Active hydroCHLOROthiazide 12.5 MG Oral Tablet (Hydrodiuril) TAKE ONE TABLET BY MOUTH IN THE MORNING 90 Tablet 3 08/17/2022 Active OneTouch UltraSoft LancetsIndications: Type 2 diabetes mellitus with stage 3a chronic kidney disease, without long-term current use of insulin ([facility]) Use once daily to check glucose E11.9 [...] 1,000 mcgIndications:Vitamin B12 deficiency 1000 mcg IM [id number] 02/06/2023 01/08/2024 Active documented as of this [...] Taxonomy. Impaired fasting glucose 06/23/200607/2011 LOC PRIM [id number] 04/16/200609/24 LOC PRIM OSTEOARTH-ANKLE 04/16/2006 Sprain of [...] Care Team (Late st Contact Info) Description 12/03/2023 4:20 PM EDT Nurse Only Ancillary [address] [place] [address] [place], Nurse [address] [place] [address] 12/17/2023 5:40 PM EDT Office Visit Family Medicine [address] [place] [phone] Rosemary Valentine MD [address] [place] [address] [place] [address] 02/01/2024 3:00 PM EDT Nurse Only Ancillary [address] [place] [address] [place], Nurse Annual Wellness [address] [place] [address] [place] [address] 04/24/2024 3:30 PM EDT Office Visit Cardiology [address] [place] [address] Herberth Denny PA-C [address] [place] [address] Pending Results Name Type Priority Associated Diagnoses Date /Time URINALYSIS WITH MICROSCOPIC EXAM Lab Routine Suspected urinary tract infection 11/30/2023 4:47 PM EDT CULTURE, URINE, QUANTITATIVE Lab Routine Suspected urinary tract infection 11/30/2023 4:47 PM EDT Health Maintenance Due Date Last Done Comments DXA Scan 01/04/2023 01/05/2020, 01/04/2015 COVID-19 Vaccine ( season) 2023 Colonoscopy 04/19/2023 04/19/2018, 03/26, 09/29/2014, Additional history exists CKD HGB USE SMARTSET 78481 01/20/202401/19, 01/19/2023, 07/03/2022, Additional history exists Diabetic [...] Additional history exists CKD PHOS USE SMARTSET 97515 10/08/202409/23, 07/03/2022, 05/11/2021, Additional history exists DTaP,Tdap,and [...] this encounter Medical Devices Implanted Type Area Clinical Documentation Specialist Device Identifier Shelf Expiration Date Model / Serial / Lot Lens Intraoc 19.5 - [id number] - [id number] Implanted:Qty: 1 on 03/17/2021 by Migel Dejesus MD at [facility] Left: Eye [employer]OM[employer] 10/22/2025 [id number] / [id number] / [id number] Lens Intraoc 20.0 - [id number] - [id number] Implanted:Qty: 1 on 03/31/2021 by Migel Dejesus MD at OR [facility] Right: Eye BAUSCH [employer] LOMB 12/22/2025 [id number] / [id number] / [id number] documented as of this encounter Visit Diagnoses Diagnosis Suspected urinary tract infection documented in this encounter Advance Directives Healthcare Agents on File Name Relationship Healthcare Agent Relationshi p Communication Mimi Vieyra Adult Child Health Care Repr esentative (appointed verbally by patient or by statute hierarchy) Yanci Adkins Adult Child Health Care Repr esentative (appointed verbally by patient or by statute hierarchy) Care Teams Filling Separator Relationship Specialty Start Date End Date Rosemary Valentine MD [address] [place] [address] [place] [address] PCP - General Family Medicine 09/05/23 documented as of this encounter
--- OUTSIDE RECORDS SUMMARY | 2023-12-02 01:52 | External Medical Summary | Summary of Care ---
Author Name Unknown Organization [facility] Address [address] [facility] [address] Phone [phone] Care Team Providers Care Learning And Development Manager Name Role Phone Rosemary Valentine MD Primary Care Provide r Reason for Visit * Reason Onset Date Comments Test Results 11/08/2023 Encounter Details Date Type Department Care Team (Late st Contact Info) Description 11/08/2023 Telephone Cardiology, [facility] [address] [place] [address] Herberth Denny PA-C [address] [place] [address] Test Results Allergies Active Allergy Reactions Criticality Noted Date Comments Codeine Nausea/vomiting 08/15/2011 Propoxyphene N-Acetaminophen Nausea/vomiting Low 08/24/2008 Iodinated Contrast Media Hives 02/06/2023 Iodine Hives 01/08/2001 Latex 09/26/2012 Contact dermititis Nitrofurantoin Rash 09/07/2014 Metformin 04/12/2021 documented as of this encounter (statuses as of 11/08/2023) Medications Medication Sig Dispensed Refills Start Date [...] disease, without long-term current use of insulin ([facility]) Use up to 4 times a day E11.9 1 Kit 0 10/03/2021 Active hydroCHLOROthiazide 12.5 MG Oral Tablet (Hydrodiuril) TAKE ONE TABLET BY MOUTH IN THE MORNING 90 Tablet 3 08/17/2022 Active OneTouch UltraSoft LancetsIndications: Type 2 diabetes mellitus with stage 3a chronic kidney disease, without long-term current use of insulin ([facility]) Use once daily to check [...] disease, without long-term current use of insulin ([facility]) Inject 0.75 mg under the [...] 1,000 mcgIndications:Vitamin B12 deficiency 1000 mcg IM [id number] 02/06/2023 01/08/2024 Active documented as of this encounter (statuses as of 11/08/2023) Active Problems Problem Noted Date Diagnosed Date [...] as of this encounter (statuses as of 11/08/2023) Resolved Problems Problem Noted Date Diagnosed Date [...] Taxonomy. Impaired fasting glucose 06/23/200607/2011 LOC PRIM [id number] 04/16/200609/24 LOC PRIM OSTEOARTH-ANKLE 04/16/2006 Sprain of [...] as of this encounter (statuses as of 11/08/2023) Immunizations Name Administration Dates Next Due Pneumococcal [...] encounter Miscellaneous Notes * Telephone Encounter - Pedro Luis Clemente LPN - 11/08/2023 12:51 PM EDT Called patient and informed of Herberth's message. Patient verbalized understanding. Mailed results perpatient's request. 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 No acute intracranial abnormality noted on brain MRI OK documented in this encounter Plan of Treatment Upcoming Encounters Date Type Department Care Team (Late st Contact Info) Description 11/30/2023 4:20 PM EDT Nurse Only Ancillary [address] [place] [address] [place], Nurse [address] [place] [address] 12/17/2023 5:40 PM EDT Office Visit Family Medicine [address] [place] [phone] Rosemary Valentine MD [address] [place] [address] [place] [address] 02/01/2024 3:00 PM EDT Nurse Only Ancillary [address] [place] [address] [place], [address] [place] [address] 04/24/2024 3:30 PM EDT Office Visit Cardiology [address] [place] [address] Herberth Denny PA-C [address] [place] [address] Health Maintenance Due Date Last Done Comments DXA Scan 01/04/2023 01/05/2020, 01/04/2015 COVID-19 Vaccine ( season) 2023 Colonoscopy 04/19/2023 04/19/2018, 03/26, 09/29/2014, Additional history exists CKD HGB USE SMARTSET 76550 01/20/202401/19, 01/19/2023, 07/03/2022, Additional history exists Diabetic [...] Additional history exists CKD PHOS USE SMARTSET 47234 10/08/202409/23, 07/03/2022, 05/11/2021, Additional history exists DTaP,Tdap,and [...] this encounter Medical Devices Implanted Type Area Multiple Pressure Riveter Operator Device Identifier Shelf Expiration Date Model / Serial / Lot Lens Intraoc 19.5 - [id number] - [id number] Implanted:Qty: 1 on 03/17/2021 by Migel Dejesus MD at OR [facility] Left: Eye [employer]CH [employer]OM[employer] 10/22/2025 [id number] / [id number] / [id number] Lens Intraoc 20.0 - [id number] - [id number] Implanted:Qty: 1 on 03/31/2021 by Migel Dejesus MD at OR [facility] Right: Eye BAUSCH [employer] LOMB 12/22/2025 [id number] / [id number] / [id number] documented as of this encounter Advance Directives Healthcare Agents on File Name Relationship Healthcare Agent Relationshi p Communication Mimi Vieyra Adult Child Health Care Repr esentative (appointed verbally by patient or by statute hierarchy) Yanci Adkins Adult Child Health Care Repr esentative (appointed verbally by patient or by statute hierarchy) Care Teams Learning And Development Manager Relationship Specialty Start Date End Date Rosemary Valentine MD [address] [place] [address] [place] [address] PCP - General Family Medicine 09/05/23 documented as of this encounter
--- OUTSIDE RECORDS SUMMARY | 2023-12-02 01:52 | External Medical Summary | Summary of Care ---
Author Name Unknown Organization [facility] Address [address] [place] [address] Phone [phone] Care Team Providers Care Transport Nurse Name Role Phone Rosemary Valentine MD Primary Care Provide r Reason for Visit * Reason Onset Date Comments Medication Problem 08/08/2023 case management 08/08/2023 Encounter Details Date Type Department Care Team (Late st Contact Info) Description 08/08/2023 Telephone Family Medicine [address] [phone] Rosemary Valentine MD [address] [place] [address] [place] [address] Medication Problem; case management Allergies Active Allergy Reactions Criticality Noted Date Comments Codeine Nausea/vomiting 08/15/2011 Propoxyphene N-Acetaminophen Nausea/vomiting Low 08/24/2008 Iodinated Contrast Media Hives 02/06/2023 Iodine Hives 01/08/2001 Latex 09/26/2012 Contact dermititis Nitrofurantoin Rash 09/07/2014 Metformin 04/12/2021 documented as of this encounter (statuses as of 11/07/2023) Medications Medication Sig Dispensed Refills Start Date End Date Status ASPIRIN 81 MG PO TABSIndications:h eart Take 1 Tablet by mouth in the morning. 0 Active Iron-Vitamin C 65-125 MG Oral Tablet Take 1 Tablet by mouth in the morning. 90 Tab 3 01/25/2016 Active Polyethylene Glycol 3350 17 GM/SCOOP Oral PowderIndications :constipation Take 17 g by mouth at bedtime as needed for Constipation. 0 Active Loratadine 10 MG Oral CapsuleIndication s:allergies Take 1 Capsule by mouth in the morning. 0 Active Cyanocobalamin 1000 MCG/ML Injection Solution (Cyanocobalamin) Inject as directed 1,000 mcg every 30 days . 1 mL 11 09/13/2021 Active OneTouch Verio w/Device KitIndications:Ty pe 2 diabetes mellitus with stage 3a chronic kidney disease, without long-term current use of insulin ([facility]) Use up to 4 times a day E11.9 1 Kit 0 10/03/2021 Active hydroCHLOROthiazi de 12.5 MG Oral Tablet (Hydrodiuril) TAKE ONE TABLET BY MOUTH IN THE MORNING 90 Tablet 3 08/17/2022 Active OneTouch UltraSoft LancetsIndication s:Type 2 diabetes mellitus with stage 3a chronic kidney disease, without long-term current use of insulin ([facility]) Use once daily to check glucose E11.9 [...] Sodium 20 MG Oral Tablet Delayed Release (Protonix)Indicat ions:Gastroesopha geal reflux disease with esophagitis without hemorrhage Take 1 Tablet by mouth in the morning and 1 Tablet in the evening. 180 Tablet 1 01/19/2023 Active Ezetimibe 10 MG Oral Tablet (Zetia)Indication s:Dyslipidemia, goal LDL below 70 TAKE ONE TABLET BY MOUTH IN THE MORNING 90 Tablet 3 03/05/2023 Active Albuterol Sulfate HFA 108 (90 Base) MCG/ACT Inhalation Aerosol SolutionIndicatio ns:Intermittent asthma with reliever use up to twice per week without complication,SOB (shortness of breath) Inhale 2 Puffs by mouth every 6 hours as needed for Shortness of Breath or Wheezing. 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 90 Tablet 3 09/22/2022 10/29/2023 Discontinue d(Refill) Ondansetron HCl 4 MG Oral Tablet (Zofran)Indicatio ns:Nausea without vomiting take 1 tablet every 6 hours as needed for nausea. 30 Tablet 2 07/28/2023 10/29/2023 Discontinue d(Refill) Hospital, Clinic, or Other Facility Administered Medication Ordered Dose Route Frequency Start Date End Date Status vitamin b-12 (Cyanocobalamin) inj 1,000 mcgIndications:Vitamin B12 deficiency 1000 mcg IM [id number] 02/06/2023 01/08/2024 Active documented as of this encounter (statuses as of 11/07/2023) Active Problems Problem Noted Date Diagnosed Date [...] as of this encounter (statuses as of 11/07/2023) Resolved Problems Problem Noted Date Diagnosed Date [...] Taxonomy. Impaired fasting glucose 06/23/200607/2011 LOC PRIM [id number] 04/16/200609/24 LOC PRIM OSTEOARTH-ANKLE 04/16/2006 Sprain of [...] as of this encounter (statuses as of 11/07/2023) Immunizations Name Administration Dates Next Due Pneumococcal [...] encounter Miscellaneous Notes * Telephone Encounter - Hilary Rollins RN - 08/08/2023 2:00 PM EST Spoke with patient today. Violeta Nix reports she got a letter from [employer] [facility] saying that Spiriva is no longer on the formulary. I have a message into Ana, at [facility], to verify this, and to ask if she is making any recommendations. Violeta Nix says maybe you can just call them and tell them she needs to have it? Thank you. documented in this encounter Plan of Treatment Upcoming Encounters Date Type Department Care Team (Late st Contact Info) Description 11/30/2023 4:20 PM EDT Nurse Only Ancillary [address] [place] [address] Nurse Samantha [address] [place] [address] 12/17/2023 5:40 PM EDT Office Visit Family Medicine [address] [place] [phone] Rosemary Valentine MD [address] [place] [address] [place] [address] 02/01/2024 3:00 PM EDT Nurse Only Ancillary [address] [place] [address] Nurse Kateryna [facility] [address] [place] [address] [place] [address] 04/24/2024 3:30 PM EDT Office Visit Cardiology [address] [place] [address] Herberth Denny PA-C [address] [place] [address] Health Maintenance Due Date Last Done Comments DXA Scan 01/04/2023 01/05/2020, 01/04/2015 COVID-19 Vaccine ( season) 2023 Colonoscopy 04/19/2023 04/19/2018, 03/26, 09/29/2014, Additional history exists CKD HGB USE SMARTSET 38257 01/20/202401/19, 01/19/2023, 07/03/2022, Additional history exists Diabetic [...] Additional history exists CKD PHOS USE SMARTSET 90657 10/08/202409/23, 07/03/2022, 05/11/2021, Additional history exists DTaP,Tdap,and [...] this encounter Medical Devices Implanted Type Area Supervisor Engines Road Device Identifier Shelf Expiration Date Model / Serial / Lot Lens Intraoc 19.5 - [id number] - [id number] Implanted:Qty: 1 on 03/17/2021 by Migel Dejesus MD at OR [facility] Left: Eye [employer]CH [employer]OMB 10/22/2025 [id number] / [id number] / [id number] Lens Intraoc 20.0 - [id number] - [id number] Implanted:Qty: 1 on 03/31/2021 by Migel Dejesus MD at OR [facility] Right: Eye BAUSCH [employer] LOMB 12/22/2025 [id number] / [id number] / [id number] documented as of this encounter Advance Directives Healthcare Agents on File Name Relationship Healthcare Agent Relationshi p Communication Mimi Jarrell Adult Child Health Care Repr esentative (appointed verbally by patient or by statute hierarchy) Yanci Lucille Adult Child Health Care Repr esentative (appointed verbally by patient or by statute hierarchy) Care Teams Transport Nurse Relationship Specialty Start Date End Date Rosemary Valentine MD [address] [place] [address] [place] [address] PCP - General Family Medicine 09/05/23 documented as of this encounter
--- OUTSIDE RECORDS SUMMARY | 2023-12-02 01:52 | External Medical Summary | Summary of Care ---
Author Name Unknown Organization [facility] Address [address] [place] [address] Phone [phone] Care Team Providers Care Precision Dancer Name Role Phone Rosemary Valentine MD Primary Care Provide r Reason for Visit * Reason Comments Medication Administration B 12 inj Encounter Details Date Type Department Care Team (Late st Contact Info) Description 11/02/2023 4:20 PM EDT Nurse Only Ancillary [address] [place] [address] [place], Nurse [address] [place] [address] Medication Administration (B 12 inj) Allergies Active Allergy Reactions Criticality Noted Date Comments Codeine Nausea/vomiting 08/15/2011 Propoxyphene N-Acetaminophen Nausea/vomiting Low 08/24/2008 Iodinated Contrast Media Hives 02/06/2023 Iodine Hives 01/08/2001 Latex 09/26/2012 Contact dermititis Nitrofurantoin Rash 09/07/2014 Metformin 04/12/2021 documented as of this encounter (statuses as of 11/02/2023) Medications Medication Sig Dispensed Refills Start Date [...] disease, without long-term current use of insulin ([facility]) Use up to 4 times a day E11.9 1 Kit 0 10/03/2021 Active hydroCHLOROthiazide 12.5 MG Oral Tablet (Hydrodiuril) TAKE ONE TABLET BY MOUTH IN THE MORNING 90 Tablet 3 08/17/2022 Active OneTouch UltraSoft LancetsIndications: Type 2 diabetes mellitus with stage 3a chronic kidney disease, without long-term current use of insulin ([facility]) Use once daily to check glucose E11.9 [...] disease, without long-term current use of insulin ([facility]) Inject 0.75 mg under the skin once [...] 1,000 mcgIndications:Vitamin B12 deficiency 1000 mcg IM [id number] 02/06/2023 01/08/2024 Active documented as of this encounter (statuses as of 11/02/2023) Active Problems Problem Noted Date Diagnosed Date [...] as of this encounter (statuses as of 11/02/2023) Resolved Problems Problem Noted Date Diagnosed Date [...] Taxonomy. Impaired fasting glucose 06/23/200607/2011 LOC PRIM [id number] 04/16/200609/24 LOC PRIM OSTEOARTH-ANKLE 04/16/2006 Sprain of [...] as of this encounter (statuses as of 11/02/2023) Immunizations Name Administration Dates Next Due Pneumococcal [...] on file documented as of this encounter Nursing Notes * Thea Mccann LPN - 11/02/2023 4:05 PM EDT Time Out Procedure Performed: Yes Patient Identified (Ask Name/Date of ): Yes Patient allergic to latex?No Immunization(s) verified: Yes, Immunization Name: B12, VIS Sheet(s) given: Yes Verified Side and Site: Yes Verified Shot(s) with Parent(s)/Patient: Yes Vitamin B12 administered. Patient tolerated well. documented in this encounter Plan of Treatment Upcoming Encounters Date Type Department Care Team (Late st Contact Info) Description 11/07/2023 4:15 PM EDT Imaging Radiology [address] [place] [address] 11/30/2023 4:20 PM EDT Nurse Only Ancillary [address] [place] [address] [place], Nurse [address] [place] [address] 12/17/2023 5:40 PM EDT Office Visit Family Medicine [address] [place] [phone] Rosemary Valentine MD [address] [place] [address] [place] [address] 02/01/2024 3:00 PM EDT Nurse Only Ancillary [address] [place] [address] Nurse Kateryna [address] [place] [address] 04/24/2024 3:30 PM EDT Office Visit Cardiology [address] [place] [address] Herberth Denny PA-C [address] [place] [address] Health Maintenance Due Date Last Done Comments DXA Scan 01/04/2023 01/05/2020, 01/04/2015 COVID-19 Vaccine ( season) 2023 Colonoscopy 04/19/2023 04/19/2018, 03/26, 09/29/2014, Additional history exists CKD HGB USE SMARTSET 62116 01/20/202401/19, 01/19/2023, 07/03/2022, Additional history exists Diabetic [...] Additional history exists CKD PHOS USE SMARTSET 88830 10/08/202409/23, 07/03/2022, 05/11/2021, Additional history exists DTaP,Tdap,and [...] this encounter Medical Devices Implanted Type Area Windows Technical Specialist Device Identifier Shelf Expiration Date Model / Serial / Lot Lens Intraoc 19.5 - [id number] - [id number] Implanted:Qty: 1 on 03/17/2021 by Migel Dejesus MD at OR [facility] Left: Eye BAUSCH [employer] LOMB 10/22/2025 [id number] / [id number] / [id number] Lens Intraoc 20.0 - [id number] - [id number] Implanted:Qty: 1 on 03/31/2021 by Migel Dejesus MD at OR [facility] Right: Eye BAUSCH & LOMB 12/22/2025 [id number] / [id number] / [id number] documented as of this encounter Administered Medications Active Administered Medications - up to 3 most recent administrations Medication Order MAR Action Action Date Dose Rate Site vitamin b-12 (Cyanocobalamin) inj 1,000 mcg 1,000 mcg, Intramuscular, [id number], First dose on Sun02/06/23 at 1345, Last dose on Sun12/11/23 at 1345, For 12 doses Given 11/02/2023 4:02 PM EDT 1,000 mcg Deltoid Right Upper Given 09/14/2023 2:48 PM EDT 1,000 mcg De ltoid Right Upper Given 07/20/2023 3:43 PM EST 1,000 mcg De ltoid Left Upper documented in this encounter Advance Directives Healthcare Agents on File Name Relationship Healthcare Agent Relationshi p Communication Mimi Vieyra Adult Child Health Care Repr esentative (appointed verbally by patient or by statute hierarchy) Yanci Adkins Adult Child Health Care Repr esentative (appointed verbally by patient or by statute hierarchy) Care Teams Precision Dancer Relationship Specialty Start Date End Date Rosemary Valentine MD [address] [place] [address] [place] [address] PCP - General Family Medicine 09/05/23 documented as of this encounter
--- OUTSIDE RECORDS SUMMARY | 2023-12-02 01:52 | External Medical Summary | Summary of Care ---
Author Name Unknown Organization [facility] Address [address] [place] [address] Phone [phone] Care Team Providers Care Food And Beverage Coordinator Name Role Phone Randy Valentine MD Primary Care Provide r Reason for Referral * Medication Prior Authorization - Closed Specialty Diagnoses / Procedures Referred By Contac t Referred To Contact Diagnoses Nausea without vomiting Randy Valentine MD [address] [place] [address] [place] [id number] Referral ID Status Reason Start Date Expiration Date Visits Re quested Visits Authorized [id number] Closed 999 999 Reason for Visit * Reason Onset Date Comments Medication Refill 10/29/2023 Encounter Details Date Type Department Care Team (Late st Contact Info) Description 10/29/2023 Refill Family Medicine [address] [place] [phone] Randy Valentine MD [address] [place] [address] [place] [id number] Nausea without vomiting; Type 2 diabetes mellitus with stage 3a chronic kidney disease, without long-term current use of insulin (HCC) Allergies Active Allergy Reactions Criticality Noted Date Comments Codeine Nausea/vomiting 08/15/2011 Propoxyphene N-Acetaminophen Nausea/vomiting Low 08/24/2008 Iodinated Contrast Media Hives 02/06/2023 Iodine Hives 01/08/2001 Latex 09/26/2012 Contact dermititis Nitrofurantoin Rash 09/07/2014 Metformin 04/12/2021 documented as of this encounter (statuses as of 10/30/2023) Medications Medication Sig Dispensed Refills Start Date [...] Constipation. 0 Active Loratadine 10 MG Oral CapsuleIndications :allergies Take 1 Capsule by mouth in the morning. 0 Active Cyanocobalamin 1000 MCG/ML Injection Solution (Cyanocobalamin) Inject as directed 1,000 mcg every 30 days . 1 mL 11 09/13/2021 Active 20/20 [employer]Touch Verio w/Device KitIndications:Typ e 2 diabetes mellitus with stage 3a chronic kidney disease, without long-term current use of insulin (HCC) Use up to 4 times a day E11.9 1 Kit 0 10/03/2021 Active hydroCHLOROthiazid e 12.5 MG Oral Tablet (Hydrodiuril) TAKE ONE TABLET BY MOUTH IN THE MORNING 90 Tablet 3 08/17/2022 Active 20/20 [employer]Touch UltraSoft LancetsIndications :Type 2 diabetes mellitus with [...] 2 times a day. 0 06/20/2023 Active Fluticasone-Umecli din-Vilant 200-62.5-25 MCG/ACT Aerosol Powder Breath Activated (Trelegy Ellipta) Inhale 1 Puff by mouth daily. 60 Blister Dosing Unit 3 09/26/2023 Active Acetaminophen ER 650 MG Oral Tablet Extended Release (Arthritis Pain Relief) Take 1 Tablet by mouth every 8 hours as needed. 0 Active Ondansetron HCl 4 MG Oral Tablet [...] the morning. 90 Tablet 3 10/29/2023 Active OneTouch Verio In Vitro Strip (Glucose Blood)Indications: Type 2 diabetes mellitus with stage 3a chronic kidney disease, without long-term current use of insulin (HCC) Use once daily to check glucose E11.9 100 Strip 5 08/21/2022 4 Discontinue d(Refill) Ondansetron HCl 4 MG Oral Tablet (Zofran)Indication s:Nausea without vomiting take 1 tablet every 6 hours as needed for nausea. 30 Tablet 2 07/28/2023 4 Discontinue d(Refill) Hospital, Clinic, or Other Facility Administered Medication Ordered Dose Route Frequency Start Date End Date Status vitamin b-12 (Cyanocobalamin) inj 1,000 mcgIndications:Vitamin B12 deficiency 1000 mcg IM [id number] 02/06/2023 01/08/2024 Active documented as of this encounter (statuses as of 10/30/2023) Active Problems Problem Noted Date Diagnosed Date [...] as of this encounter (statuses as of 10/30/2023) Resolved Problems Problem Noted Date Diagnosed Date [...] Taxonomy. Impaired fasting glucose 06/23/200607/2011 LOC PRIM [id number] 04/16/200609/24 LOC PRIM OSTEOARTH-ANKLE 04/16/2006 Sprain of [...] as of this encounter (statuses as of 10/30/2023) Immunizations Name Administration Dates Next Due Pneumococcal [...] Telephone Encounter - Randy Valentine MD - 10/30/2023 1:37 PM EDT Signed Prescriptions: Disp Refills Ondansetron HCl 4 MG Oral Tablet (Zofran) 30 Tab*2 Sig: take 1 tablet every 6 hours as needed for nausea. Authorizing Provider: RANDY VALENTINE OneTouch Verio In Vitro Strip (Glucose Blo*100 St*5 Sig: Use once daily to check glucose E11.9 Authorizing Provider: RANDY VALENTINE Ordering User: LUCI JESSICA ---- * Telephone Encounter - Luci Jessica [facility] - 10/30/2023 1:17 PM EDT Pending Prescriptions: Disp Refills Ondansetron HCl 4 MG Oral Tablet (Zofran) 30 Tab*2 Sig: take 1 tablet every 6 hours as needed for nausea. Signed Prescriptions: Disp Refills OneTouch Verio In Vitro Strip (Glucose Blo*100 St*5 Sig: Use once daily to check glucose E11.9 Authorizing Provider: RANDY VALENTINE Ordering User: LUCI JESSICA * Telephone Encounter - Bry Gan, section hand helper - 10/29/2023 12:02 PM EDT Did you pend patient's preferred pharmacy and medication before forwarding?yes Pharmacy: [id number] [facility] Pending Prescriptions: Disp Refills Ondansetron HCl 4 MG Oral Tablet (Zofran) 30 Tab*2 Sig: take 1 tablet every 6 hours as needed for nausea. OneTouch Verio In Vitro Strip (Glucose Bl*100 St*5 Sig: Use once daily to check glucose E11.9 Last Visit: 08/28/2023 (in office), Visit date not found (telemedicine) Next Visit: 12/17/2023 If no future appointments scheduled, and last appointment is greater than a year ago, please schedule patient for a follow-up appointment Last date the medication was ordered: 10/26/2023, 08/21/2022 Is this request for a controlled substance?No Urine Drug Screen:No results found. However, due [...] 11/02/2023 4:20 PM EDT Nurse Only Ancillary [address] [place] [address] Nurse Samantha [address] [place] [address] 11/07/2023 4:15 PM EDT Imaging Radiology [address] [place] [address] 11/30/2023 4:20 PM EDT Nurse Only Ancillary [address] [place] [address] Nurse Samantha [address] [place] [address] 12/17/2023 5:40 PM EDT Office Visit Family Medicine [address] [place] [phone] Randy Valentine MD [address] [place] [address] [place] [address] 02/01/2024 3:00 PM EDT Nurse Only Ancillary [address] [place] [address] Nurse Kateryna [address] [place] [address] 04/24/2024 3:30 PM EDT Office Visit Cardiology [address] [place] [address] Herberth Denny PA-C [address] [place] [address] Health Maintenance Due Date Last Done Comments DXA Scan 01/04/2023 01/05/2020, 01/04/2015 COVID-19 Vaccine ( season) 2023 Colonoscopy 04/19/2023 04/19/2018, 03/26, 09/29/2014, Additional history exists CKD HGB USE SMARTSET 84512 01/20/202401/19, 01/19/2023, 07/03/2022, Additional history exists Diabetic [...] Additional history exists CKD PHOS USE SMARTSET 72687 10/08/202409/23, 07/03/2022, 05/11/2021, Additional history exists DTaP,Tdap,and [...] this encounter Medical Devices Implanted Type Area Manufacturing Test Engineer Device Identifier Shelf Expiration Date Model / Serial / Lot Lens Intraoc 19.5 - [id number] - [id number] Implanted:Qty: 1 on 03/17/2021 by Migel Dejesus MD at OR [facility] Left: Eye [employer]OMB 10/22/2025 [id number] / [id number] / [id number] Lens Intraoc 20.0 - [id number] - [id number] Implanted:Qty: 1 on 03/31/2021 by Migel Dejesus MD at OR [facility] Right: Eye BAUSCH [employer] LOMB 12/22/2025 [id number] / [id number] / [id number] documented as of this encounter Visit Diagnoses Diagnosis Nausea without vomiting Type 2 diabetes mellitus with stage 3a chronic kidney disease, without long-term current use of insulin (HCC) documented in this encounter Advance Directives Healthcare Agents on File Name Relationship Healthcare Agent Relationshi p Communication Mimi Vieyra Adult Child Health Care Repr esentative (appointed verbally by patient or by statute hierarchy) [phone] ([place]) Yanci Adkins Adult Child Health Care Repr esentative (appointed verbally by patient or by statute hierarchy) Care Teams Food And Beverage Coordinator Relationship Specialty Start Date End Date Randy Valentine MD [address] [place] [address] [place] [address] PCP - General Family Medicine 09/05/23 documented as of this encounter
--- OUTSIDE RECORDS SUMMARY | 2023-12-02 01:52 | External Medical Summary | Summary of Care ---
Author Name Unknown Organization [facility] Address [address] [place] [address] Phone [phone] Care Team Providers Care Laboratory Animal Caretaker Name Role Phone Rosemary Valentine MD Primary Care Provide r Reason for Visit * Reason Onset Date Comments Appointment 11/03/2023 Encounter Details Date Type Department Care Team (Late st Contact Info) Description 11/03/2023 Telephone Radiology [address] [place] [address] Deonna Mantilla TECH Appointment Allergies Active Allergy Reactions Criticality Noted Date Comments Codeine Nausea/vomiting 08/15/2011 Propoxyphene N-Acetaminophen Nausea/vomiting Low 08/24/2008 Iodinated Contrast Media Hives 02/06/2023 Iodine Hives 01/08/2001 Latex 09/26/2012 Contact dermititis Nitrofurantoin Rash 09/07/2014 Metformin 04/12/2021 documented as of this encounter (statuses as of 11/03/2023) Medications Medication Sig Dispensed Refills Start Date [...] disease, without long-term current use of insulin ([facility]) Use up to 4 times a day E11.9 1 Kit 0 10/03/2021 Active hydroCHLOROthiazide 12.5 MG Oral Tablet (Hydrodiuril) TAKE ONE TABLET BY MOUTH IN THE MORNING 90 Tablet 3 08/17/2022 Active OneTouch UltraSoft LancetsIndications: Type 2 diabetes mellitus with stage 3a chronic kidney disease, without long-term current use of insulin ([facility]) Use once daily to check [...] disease, without long-term current use of insulin ([facility]) Inject 0.75 mg under the [...] 1,000 mcgIndications:Vitamin B12 deficiency 1000 mcg IM [id number] 02/06/2023 01/08/2024 Active documented as of this encounter (statuses as of 11/03/2023) Active Problems Problem Noted Date Diagnosed Date [...] as of this encounter (statuses as of 11/03/2023) Resolved Problems Problem Noted Date Diagnosed Date [...] Taxonomy. Impaired fasting glucose 06/23/200607/2011 LOC PRIM [id number] 04/16/200609/24 LOC PRIM OSTEOARTH-ANKLE 04/16/2006 Sprain of [...] as of this encounter (statuses as of 11/03/2023) Immunizations Name Administration Dates Next Due Pneumococcal Conjugate Vacc, 13 Valent (Prevnar) 10/07/2014 Pneumococcal Polysaccharide PPV23 (Pneumovax) 08/18/2008 Season Influenza, Quad, PF, Adjuvanted, 65+ Yrs, IM (FLUAD) 05/06/2020 Seasonal Influenza Virus Vac cine, Unspecified Formulation 02/26/2019,04/23/2018,03/05/2017,03/22,03/29/2015,04/23/2014,04/21/2013 ,03/25/2012,03/25/2011,03/25/2010,1006/2008,04/06/2008,03/28/2004, 3,04/14/2002,05/20/2001 Seasonal Influenza, PF, 6 M & [...] Description 11/07/2023 4:15 PM EDT Imaging Radiology [address] [place] [address] 11/30/2023 4:20 PM EDT Nurse [place] [place] [address] [place], Nurse [address] [place] [address] 12/17/2023 5:40 PM EDT Office Visit Family Medicine [address] [place] [phone] Rosemary Valentine MD [address] [place] [address] [place] [address] 02/01/2024 3:00 PM EDT Nurse Only Ancillary [address] [place] [address] [place], Nurse Annual Wellness [address] [place] [address] [place] [address] 04/24/2024 3:30 PM EDT Office Visit Cardiology [address] [place] [address] Herberth Denny PA-C [address] [place] [address] Health Maintenance Due Date Last Done Comments DXA Scan 01/04/2023 01/05/2020, 01/04/2015 COVID-19 Vaccine ( season) 2023 Colonoscopy 04/19/2023 04/19/2018, 03/26, 09/29/2014, Additional history exists CKD HGB USE SMARTSET 26008 01/20/202401/19, 01/19/2023, 07/03/2022, Additional history exists Diabetic [...] Additional history exists CKD PHOS USE SMARTSET 77093 10/08/202409/23, 07/03/2022, 05/11/2021, Additional history exists DTaP,Tdap,and [...] this encounter Medical Devices Implanted Type Area Coding Compliance Auditor Device Identifier Shelf Expiration Date Model / Serial / Lot Lens Intraoc 19.5 - [id number] - [id number] Implanted:Qty: 1 on 03/17/2021 by Migel Dejesus MD at OR [facility] Left: Eye [employer]CH [employer] LOMB 10/22/2025 [id number] / [id number] / [id number] Lens Intraoc 20.0 - [id number] - [id number] Implanted:Qty: 1 on 03/31/2021 by Migel Dejesus MD at OR [facility] Right: Eye BAUSCH & LOMB 12/22/2025 [id number] / [id number] / [id number] documented as of this encounter Advance Directives Healthcare Agents on File Name Relationship Healthcare Agent Relationshi p Communication Mimi Vieyra Adult Child Health Care Repr esentative (appointed verbally by patient or by statute hierarchy) Yanci Adkins Adult Child Health Care Repr esentative (appointed verbally by patient or by statute hierarchy) Care Teams Laboratory Animal Caretaker Relationship Specialty Start Date End Date Rosemary Valentine MD [address] [place] [address] [place] [address] PCP - General Family Medicine 09/05/23 documented as of this encounter
--- OUTSIDE RECORDS SUMMARY | 2023-12-02 01:52 | External Medical Summary | Summary of Care ---
Author Name Unknown Organization [facility] Address [address] [place] [address] Phone [phone] Care Team Providers Care Transit Mechanic Name Role Phone Randy Valentine MD Primary Care Provide r Reason for Visit * Reason Onset Date Comments Medication Refill 10/29/2023 Encounter Details Date Type Department Care Team (Late st Contact Info) Description 10/29/2023 Refill Family Medicine [address] [phone] Randy Valentine MD [address] [place], [place] [address] [address] Anxiety Allergies Active Allergy Reactions Criticality [...] disease, without long-term current use of insulin ([facility]) Use up to 4 times a day E11.9 1 Kit 0 10/03/2021 Active hydroCHLOROthiazid e 12.5 MG Oral Tablet (Hydrodiuril) TAKE ONE TABLET BY MOUTH IN THE MORNING 90 Tablet 3 08/17/2022 Active OneTouch UltraSoft LancetsIndications :Type 2 diabetes mellitus with stage 3a chronic kidney disease, without long-term current use of insulin ([facility]) Use once daily to check glucose [...] EVERY DAY 200 Tablet 2 07/28/2023 Active Ondansetron HCl 4 MG Oral Tablet (Zofran)Indication s:Nausea without vomiting take 1 tablet every 6 hours as needed for nausea. 30 Tablet 2 07/28/2023 Active Fluticasone Propionate 50 [...] 0 Active ALPRAZolam 0.5 MG Oral Tablet (xaNAX)Indications :Anxiety take 1 tablet in the morning and evening if needed for anxiety 60 Tablet 0 10/30/2023 Active Rosuvastatin Calcium 10 MG Oral [...] 100 Strip 5 08/21/2022 4 Discontinue d(Refill) ALPRAZolam 0.5 MG Oral Tablet (xaNAX)Indications :Anxiety take 1 tablet in the morning and evening if needed for anxiety 60 Tablet 0 10/01/2023 4 Discontinue d(Refill) Hospital, Clinic, or Other Facility Administered Medication Ordered Dose Route Frequency Start Date End Date Status vitamin b-12 (Cyanocobalamin) inj 1,000 mcgIndications:Vitamin B12 deficiency 1000 mcg IM [id number] 02/06/2023 01/08/2024 Active documented as of this [...] Taxonomy. Impaired fasting glucose 06/23/200607/2011 LOC PRIM [id number] 04/16/200609/24 LOC PRIM OSTEOARTH-ANKLE 04/16/2006 Sprain of [...] Encounter - Randy Valentine MD - 10/30/2023 1:09 PM EDT Signed Prescriptions: Disp Refills ALPRAZolam 0.5 MG Oral Tablet (xaNAX) 60 Tab*0 Sig: take 1 tablet in the morning and evening if needed for anxiety Authorizing Provider: RANDY VALENTINE * Telephone Encounter - Dayday Tomas formerly [facility] - 10/30/2023 12:45 PM EDT Pending Prescriptions: Disp Refills ALPRAZolam 0.5 MG Oral Tablet (xaNAX) 60 Tab*0 Sig: take 1 tablet in the morning and evening if needed for anxiety * Telephone Encounter - Dayday Tomas, formerly [facility] - 10/30/2023 12:45 PM EDT I have reviewed the patients controlled substance dispensing history in the Prescription Drug Monitoring Program in compliance with the [facility] regulations before prescribing a controlled substance. PDMP checked on 10/30/2023. Pending Prescriptions: Disp Refills ALPRAZolam 0.5 MG Oral Tablet (xaNAX) 60 Tab*0 Sig: take 1 tablet in the morning and evening if needed for anxiety Last Visit: 08/28/2023 (in office), Visit date not found (telemedicine) Next Visit: 12/17/2023 Date medication was last filled: 10/01/23 Date medication is due for refill: 10/30/23 [facility]acy: [id number] Is this request for a controlled substance? Yes and Urine Drug Screen Not completed Toxicology results: No results found. However, due to the size of the patient record, not all encounters were searched.Please check Results Review for a complete set of results. Please approve if appropriate. Thanks, Dayday Tomas, PharmD Clinical Pharmacist [facility] ([facility]) (formerly Telepharmacy) [phone] 10/30/2023, 12:45 PM * Telephone Encounter - Bry Gan, equal opportunity specialist - 10/29/2023 11:55 AM EDT Did you pend patient's preferred pharmacy and medication before forwarding?yes Pharmacy: [id number] Pending Prescriptions: Disp Refills ALPRAZolam 0.5 MG [...] appointment Last date the medication was ordered: 10/01/2023 Is this request for a controlled substance?Yes, What was the last refill date 10/01/2023 w/ quantity 60 and dosage 0.5 and Urine Drug Screen Not completed Urine [...] 11/02/2023 4:20 PM EDT Nurse Only Ancillary [address] [place] [address] Nurse Samantha [address] [place] [address] 11/07/2023 4:15 PM EDT Imaging Radiology [address], [address] [place] [address] 11/30/2023 4:20 PM EDT Nurse Only Ancillary [address] [place] [address] Nurse Samantha [address] [place] [address] 12/17/2023 5:40 PM EDT Office Visit Family Medicine [address] [place] [phone] Randy Valentine MD [address] [place] [address] [place] [address] 02/01/2024 3:00 PM EDT Nurse Only Ancillary [address] [place] [address] [place], Nurse [address] [place] [address] 04/24/2024 3:30 PM EDT Office Visit Cardiology [address] [place] [address] Herberth Denny PA-C [address] [place] [address] Health Maintenance Due Date Last Done Comments DXA Scan 01/04/2023 01/05/2020, 01/04/2015 COVID-19 Vaccine ( season) 2023 Colonoscopy 04/19/2023 04/19/2018, 03/26, 09/29/2014, Additional history exists CKD HGB USE SMARTSET 71893 01/20/202401/19, 01/19/2023, 07/03/2022, Additional history exists Diabetic [...] Additional history exists CKD PHOS USE SMARTSET 49754 10/08/2024 0411/2023, 07/03/2022, 05/11/2021, Additional history exists [...] this encounter Medical Devices Implanted Type Area Counter Attendant Device Identifier Shelf Expiration Date Model / Serial / Lot Lens Intraoc 19.5 - [id number] - [id number] Implanted:Qty: 1 on 03/17/2021 by Migel Dejesus MD at OR [facility] Left: Eye [employer] 10/22/2025 [id number] / [id number] / [id number] Lens Intraoc 20.0 - [id number] - [id number] Implanted:Qty: 1 on 03/31/2021 by Migel Dejesus MD at OR [facility] Right: Eye BA[employer]CH [employer]OMB 12/22/2025 [id number] / [id number] / [id number] documented as of this encounter Visit Diagnoses Diagnosis Anxiety Anxiety state, unspecified documented in this encounter Advance Directives Healthcare Agents on File Name Relationship Healthcare Agent Relationshi p Communication Mimi Vieyra Adult Child Health Care Repr esentative (appointed verbally by patient or by statute hierarchy) Yanci Adkins Adult Child Health Care Repr esentative (appointed verbally by patient or by statute hierarchy) Care Teams Transit Mechanic Relationship Specialty Start Date End Date Randy Valentine MD [address] [place] [address] [place] [phone] PCP - General Family Medicine 09/05/23 documented as of this encounter
--- OUTSIDE RECORDS SUMMARY | 2023-12-02 01:52 | External Medical Summary | Summary of Care ---
Author Name Unknown Organization [facility] Address [address] [facility] [place] [address] Phone [phone] Care Team Providers Care Program Facilitator Name Role Phone Rosemary Valentine MD Primary Care Provide r Reason for Visit * Reason Onset Date Comments Information 11/05/2023 Encounter Details Date Type Department Care Team (Late st Contact Info) Description 11/05/2023 Telephone Cardiology, [facility] [address] [place] [address] Herberth Denny PA-C [address] [place] [address] Information Allergies Active Allergy Reactions Criticality Noted Date Comments Codeine Nausea/vomiting 08/15/2011 Propoxyphene N-Acetaminophen Nausea/vomiting Low 08/24/2008 Iodinated Contrast Media Hives 02/06/2023 Iodine Hives 01/08/2001 Latex 09/26/2012 Contact dermititis Nitrofurantoin Rash 09/07/2014 Metformin 04/12/2021 documented as of this encounter (statuses as of 11/05/2023) Medications Medication Sig Dispensed Refills Start Date [...] long-term current use of insulin ([facility]) Use up to 4 times a day E11.9 1 Kit 0 10/03/2021 Active hydroCHLOROthiazide 12.5 MG Oral Tablet (Hydrodiuril) TAKE ONE TABLET BY MOUTH IN THE MORNING 90 Tablet 3 08/17/2022 Active OneTouch UltraSoft LancetsIndications: Type 2 diabetes mellitus with stage 3a chronic kidney disease, without long-term current use of insulin ([facility]) Use once daily to check glucose [...] long-term current use of insulin ([facility]) Inject 0.75 mg under the skin once [...] long-term current use of insulin ([facility]) Use once daily to check glucose [...] 1,000 mcgIndications:Vitamin B12 deficiency 1000 mcg IM [id number] 02/06/2023 01/08/2024 Active documented as of this encounter (statuses as of 11/05/2023) Active Problems Problem Noted Date Diagnosed Date [...] as of this encounter (statuses as of 11/05/2023) Resolved Problems Problem Noted Date Diagnosed Date [...] Taxonomy. Impaired fasting glucose 06/23/200607/2011 LOC PRIM [id number] 04/16/200609/24 LOC PRIM OSTEOARTH-ANKLE 04/16/2006 Sprain of [...] as of this encounter (statuses as of 11/05/2023) Immunizations Name Administration Dates Next Due Pneumococcal [...] encounter Miscellaneous Notes * Telephone Encounter - Olivia Haines LPN - 11/05/2023 1:01 PM EDT Pt aware * Telephone Encounter - Herberth Denny PA-C - 11/05/2023 12:49 PM EDT I am not sure I understand the question, or perhaps this was just FYI. Spine surgery with Dr. Hickey transpired in November 2008 MRI's in 2012 and 2015 were without issues. Herberth Denny PA-C Department of Cardiology * Telephone Encounter - Olivia Haines LPN - 11/05/2023 10:44 AM EDT Pt calling regarding MRI scheduled for Sunday. She has 4 screws in her lumbar spine. (Confirmed by 07/2018 pelvic xray in chart) Pt states Dr. Hickey did the surgery on her spine. Nurse called [facility] to see if metal is MRI compatible. U has no record at all of pt having spine surgery with Dr. Hickey. U chart searched all the way back to 2006. Pt cannot remember date of surgery. She is confident Dr Hickey performed surgery at [facility]. Cannot find mention on spinal surgery in chart. (Except for a care everywhere note: There are multilevel degenerative changes within the spine. L4-L5 discectomy, posterior decompression and bilateral pedicle screw fusion is noted.) Pt has history of MRI but she is unsure of date of surgery, so not sure if before or after spine surgery. documented in this encounter Plan of Treatment Upcoming Encounters Date Type Department Care Team (Late st Contact Info) Description 11/07/2023 4:15 PM EDT Imaging Radiology [facility] [address] [facility] [place] [phone] 11/30/2023 4:20 PM EDT Nurse Only Ancillary Jameson Santamaria[address] [place] [address] Samantha, Nurse [address] [place] [address] 12/17/2023 5:40 PM EDT Office Visit Family Medicine [address] [place] [phone] Rosemary Valentine MD [address] [place] [address] [place] [address] 02/01/2024 3:00 PM EDT Nurse Only Ancillary [address] [place] [address] [place], Nurse Annual Wellness [address] [place] [address] [place] [address] 04/24/2024 3:30 PM EDT Office Visit Cardiology [address] [place] [address] Herberth Denny PA-C [address] [place] [address] Health Maintenance Due Date Last Done Comments DXA Scan 01/04/2023 01/05/2020, 01/04/2015 COVID-19 Vaccine ( season) 2023 Colonoscopy 04/19/2023 04/19/2018, 03/26, 09/29/2014, Additional history exists CKD HGB USE SMARTSET 06504 01/20/202401/19, 01/19/2023, 07/03/2022, Additional history exists Diabetic [...] Additional history exists CKD PHOS USE SMARTSET 47509 10/08/202409/23, 07/03/2022, 05/11/2021, Additional history exists DTaP,Tdap,and [...] this encounter Medical Devices Implanted Type Area Lead Atg Developer Device Identifier Shelf Expiration Date Model / Serial / Lot Lens Intraoc 19.5 - [id number] - [id number] Implanted:Qty: 1 on 03/17/2021 by Migel Dejesus MD at OR [facility] Left: Eye [employer] 10/22/2025 [id number] / [id number] / [id number] Lens Intraoc 20.0 - [id number] - [id number] Implanted:Qty: 1 on 03/31/2021 by Migel Dejesus MD at OR [facility] Right: Eye [employer]OM[employer] 12/22/2025 [id number] / [id number] / [id number] documented as of this encounter Advance Directives Healthcare Agents on File Name Relationship Healthcare Agent Relationshi p Communication Mimi Vieyra Adult Child Health Care Repr esentative (appointed verbally by patient or by statute hierarchy) Yanci Adkins Adult Child Health Care Repr esentative (appointed verbally by patient or by statute hierarchy) Care Teams Program Facilitator Relationship Specialty Start Date End Date Rosemary Valentine MD [address] [place] [address] [place] [address] PCP - General Family Medicine 09/05/23 documented as of this encounter
--- OUTSIDE RECORDS SUMMARY | 2023-12-02 01:53 | External Medical Summary | Summary of Care ---
Author Name Unknown Organization [facility] Address [address] [place] [address] Phone [phone] Care Team Providers Care Registered Nurse Surgical Services Name Role Phone Rosemary Valentine MD Primary Care Provide r Reason for Visit * Reason Comments Outpatient Testing Encounter Details Date Type Department Care Team (Late st Contact Info) Description 10/09/2023 3:40 PM EDT Laboratory Laboratory [address] [place] [phone] [place] [address] Type 2 diabetes mellitus with stage 3a chronic kidney disease, without long-term current use of insulin ([facility]); Screening for nephropathy; Chronic kidney disease, unspecified CKD stage Allergies Active Allergy Reactions Criticality Noted Date Comments Codeine Nausea/vomiting 08/15/2011 Propoxyphene N-Acetaminophen Nausea/vomiting Low 08/24/2008 Iodinated Contrast Media Hives 02/06/2023 Iodine Hives 01/08/2001 Latex 09/26/2012 Contact dermititis Nitrofurantoin Rash 09/07/2014 Metformin 04/12/2021 documented as of this encounter (statuses as of 10/09/2023) Medications Medication Sig Dispensed Refills Start Date [...] MORNING 90 Tablet 3 08/17/2022 Active OneTouch Verio In Vitro Strip (Glucose Blood)Indications: Type 2 diabetes mellitus with stage 3a chronic kidney disease, without long-term current use of insulin (HCC) Use once daily to check glucose E11.9 100 Strip 5 08/21/2022 Active OneTouch UltraSoft LancetsIndications :Type 2 diabetes mellitus with stage 3a chronic kidney disease, without long-term current use of insulin (HCC) Use once daily to check glucose E11.9 100 Each 5 08/21/2022 Active Rosuvastatin Calcium 10 MG Oral Tablet (Crestor)Indicatio ns:Dyslipidemia, goal LDL below 100 Take 1 Tablet by mouth in the morning. 90 Tablet 3 09/22/2022 Active Acetaminophen ER 650 MG Oral Tablet [...] the evening. 225 Tablet 3 08/22/2023 Active predniSONE 10 MG Oral Tablet (Deltasone)Indicat ions:Moderate persistent asthma with exacerbation,Acute cough Take 5 tabs for 2 days, 4 tabs for 2 days, 3 tabs for 2 days, 2 tabs for 2 days 1 tab for 2 days 30 Tablet 0 08/28/2023 Active Additional Information Patient not taking.Reported on 09/26/2023 Trulicity 0.75 MG/0.5ML Subcutaneous Solution Pen-injector (Dulaglutide)Indic ations:Type 2 diabetes mellitus with stage 3a chronic kidney disease, without long-term current use of insulin (HCC) Inject 0.75 mg under the skin once a week. (on Mondays) 6 mL 1 09/25/2023 Active Olopatadine HCl 0.1 % Ophthalmic Solution (Niurka) Instill 1 Drop into both eyes in the morning and 1 Drop before bedtime. 0 Active Loteprednol Etabonate 0.5 % Ophthalmic Suspension (Lotemax) Instill 1 Drop into both eyes 2 times a day. 0 06/20/2023 Active Fluticasone-Umecli din-Vilant 200-62.5-25 MCG/ACT Aerosol Powder Breath Activated (Trelegy Ellipta) Inhale 1 Puff by mouth daily. 60 Blister Dosing Unit 3 09/26/2023 Active ALPRAZolam 0.5 MG Oral Tablet (xaNAX)Indications :Anxiety take 1 tablet in the morning and evening if needed for anxiety 60 Tablet 0 10/01/2023 Active Hospital, Clinic, or Other Facility Administered Medication Ordered Dose Route Frequency Start Date End Date Status vitamin b-12 (Cyanocobalamin) inj 1,000 mcgIndications:Vitamin B12 deficiency 1000 mcg IM [id number] 02/06/2023 01/08/2024 Active documented as of this encounter (statuses as of 10/09/2023) Active Problems Problem Noted Date Diagnosed Date [...] as of this encounter (statuses as of 10/09/2023) Resolved Problems Problem Noted Date Diagnosed Date [...] Taxonomy. Impaired fasting glucose 06/23/200607/2011 LOC PRIM [id number] 04/16/200609/24 LOC PRIM OSTEOARTH-ANKLE 04/16/2006 Sprain of [...] as of this encounter (statuses as of 10/09/2023) Immunizations Name Administration Dates Next Due Pneumococcal [...] Care Team (Late st Contact Info) Description 10/16/2023 3:00 PM EDT Office Visit Cardiology [address] [place] [address] Herberth Denny PA-C [address] [place] [address] 12/03/2023 2:00 PM EDT Office Visit Family Medicine [address] [place] [phone] Rosemary Valentine MD [address] [place] [address] [place] [address] 02/01/2024 3:00 PM EDT Nurse Only Ancillary [address] [place] [address] [place], Nurse Annual Wellness [address] [place] [address] [place] [address] Pending Results Name Type Priority Associated Diagnoses Date /Time HEMOGLOBIN A1C Lab Routine Type 2 diabetes mellitus with stage 3a chronic kidney disease, without long-term current use of insulin (HCC) 10/09/2023 3:34 PM EDT ALBUMIN / CREATININE RATIO, URINE Lab Routine Screening for nephropathy 10/09/2023 3:34 PM EDT PHOSPHORUS Lab Routine Chronic kidney disease, unspecified CKD stage 10/09/2023 3:34 PM EDT COMPREHENSIVE METABOLIC PANEL Lab Routine Chronic kidney disease, unspecified CKD stage 10/09/2023 3:34 PM EDT Health Maintenance Due Date Last Done Comments DXA Scan 01/04/2023 01/05/2020, 01/04/2015 COVID-19 Vaccine ( season) 2023 COLONOSCOPY-EVERY 5 YRS AGES 18-100 04/19/2023 04/19/2018, 04/19/2018, 09/29/2014, Additional history exists CKD PHOS USE SMARTSET 91068 07/03/202302/2023, 05/11/2021, 02/05/2020, Additional history exists GFR 07/22/2023 01/19/2023, 02/2023, 10/03/2021, Additional history exists HbA1c 07/22/2023 01/19/2023, 02/2023, 10/03/2021, Additional history exists Albumin/Creatinine Ratio 08/04/2023 023, 05/11/2021, 07/29/2019, Additional history exists CKD HGB USE SMARTSET 92123 01/20/202401/19, 01/19/2023, 07/03/2022, Additional history exists Diabetic Foot Exam 01/30/2024 01/29/2023, 0 01/23/2022, 12/20/2020, Additional history exists TSH 03/19/2024 03/19/2023, 12/24, 11/27/2022, Additional history exists Diabetic Eye Exam 09/27/2024 09/28/2023, , 08/15/2022, Additional history exists DTaP,Tdap,and Td Vaccines (3 - Td or Tdap) 02/10/2029 02/10/2019, 08/29/2007 Pneumococcal Vaccine: 65+ Years Completed 10/07/2014, 08/18/2008 FOBT ANNUALLY,AGES 18-90 Discontinued 018, 04/19/2018, 09/29/2014, Additional history exists Zoster Vaccines [...] this encounter Medical Devices Implanted Type Area Nanoelectronics Engineer Device Identifier Shelf Expiration Date Model / Serial / Lot Lens Intraoc 19.5 - [id number] - [id number] Implanted:Qty: 1 on 03/17/2021 by Migel Dejesus MD at OR [facility] Left: Eye [employer] 10/22/2025 [id number] / [id number] / [id number] Lens Intraoc 20.0 - [id number] - [id number] Implanted:Qty: 1 on 03/31/2021 by Migel Dejesus MD at OR [facility] Right: Eye [employer]OMB 12/22/2025 [id number] / [id number] / [id number] documented as of this encounter Visit Diagnoses Diagnosis Type 2 diabetes mellitus with stage 3a chronic kidney disease, without long-term current use of insulin ([facility]) Screening for nephropathy Chronic kidney disease, unspecified CKD stage documented in this encounter Advance Directives Healthcare Agents on File Name Relationship Healthcare Agent Relationshi p Communication Mimi Jarrell Adult Child Health Care Repr esentative (appointed verbally by patient or by statute hierarchy) Yanci Adkins Adult Child Health Care Repr esentative (appointed verbally by patient or by statute hierarchy) Care Teams Registered Nurse Surgical Services Relationship Specialty Start Date End Date Rosemary Valentine MD [address] [place] [address] [place] [phone] PCP - General Family Medicine 09/05/23 documented as of this encounter
--- OUTSIDE RECORDS SUMMARY | 2023-12-02 01:53 | External Medical Summary ---
Author Name Unknown Address Unknown Organization K01:[facility] [address] [place] [address] Laboratory Report Ordering Provider Test Date Status ANTIONETTE PADILLA 10/09/2023 15:34:48 Final Normal: <30 mg/g creatinine< br/>High: 30-300 mg/g creatinine
Very High: >300 mg/g creatinine
Nephrotic: >2200 mg/g creatinine Observation Date Value Abnormality Reference (Units ) Status Albumin, Urine 10/09/2023 15:34:48 3.89 (mg/dL) Final Creatinine, Urine 10/09/2023 15:34:48 74 (mg/dL) Final Albumin/Creatinine [Mass Ratio] in Urine 10/09/2023 15:34:48 53 Above high normal <30 (mg/g Creat) Final Performing Location [facility] - [address] [place] [address]
--- OUTSIDE RECORDS SUMMARY | 2023-12-02 01:53 | External Medical Summary | Summary of Care ---
Author Name Unknown Organization [facility] Address [address] [place] [address] Phone [phone] Care Team Providers Care Program Admin Name Role Phone Rosemary Valentine MD Primary Care Provide r Reason for Visit * Reason Onset Date Comments Medication Refill 10/29/2023 Encounter Details Date Type Department Care Team (Late st Contact Info) Description 10/29/2023 Refill Family Medicine [address] [phone] Rosemary Valentine MD [address] [place], [place] [address] [address] Allergies Active Allergy Reactions Criticality Noted Date Comments Codeine Nausea/vomiting 08/15/2011 Propoxyphene N-Acetaminophen Nausea/vomiting Low 08/24/2008 Iodinated Contrast Media Hives 02/06/2023 Iodine Hives 01/08/2001 Latex 09/26/2012 Contact dermititis Nitrofurantoin Rash 09/07/2014 Metformin 04/12/2021 documented as of this encounter (statuses as of 10/29/2023) Medications Medication Sig Dispensed Refills Start Date [...] glucose E11.9 100 Strip 5 08/21/2022 Active TuCloset.comTouch UltraSoft LancetsIndications :Type 2 diabetes mellitus with [...] for anxiety 60 Tablet 0 10/01/2023 Active Acetaminophen ER 650 MG Oral Tablet Extended Release (Arthritis Pain Relief) Take 1 Tablet by mouth every 8 hours as needed. 0 Active Rosuvastatin Calcium 10 MG Oral Tablet (Crestor)Indicatio ns:Dyslipidemia, goal LDL below 100 Take 1 Tablet by mouth in the morning. 90 Tablet 3 09/22/2022 4 Discontinue d(Refill) Hospital, Clinic, or Other Facility Administered Medication Ordered Dose Route Frequency Start Date End Date Status vitamin b-12 (Cyanocobalamin) inj 1,000 mcgIndications:Vitamin B12 deficiency 1000 mcg IM [id number] 02/06/2023 01/08/2024 Active documented as of this encounter (statuses as of 10/29/2023) Active Problems Problem Noted Date Diagnosed Date [...] as of this encounter (statuses as of 10/29/2023) Resolved Problems Problem Noted Date Diagnosed Date [...] Taxonomy. Impaired fasting glucose 06/23/200607/2011 LOC PRIM [id number] 04/16/200609/24 LOC PRIM OSTEOARTH-ANKLE 04/16/2006 Sprain of [...] as of this encounter (statuses as of 10/29/2023) Immunizations Name Administration Dates Next Due Pneumococcal [...] encounter Miscellaneous Notes * Telephone Encounter - Jade Forrester CPhT - 10/29/2023 12:06 PM EDT Pt calling to request Trekefy. Informed pt that RX is available at their pharmacy. Pt verbalized understanding and stated they will check with their pharmacy regarding this medication. Thanks, Jade Forrester CPhT, [facility] ([facility]) [address] [facility] [place] [address] documented in this encounter Plan of Treatment Upcoming Encounters Date Type Department Care Team (Late st Contact Info) Description 11/07/2023 4:15 PM EDT Imaging Radiology [address] [place] [address] 12/17/2023 5:40 PM EDT Office Visit Family Medicine [address] [place] [phone] Rosemary Valentine MD [address] [place] [address] [place] [address] 02/01/2024 3:00 PM EDT Nurse Only Ancillary [address] [place] [address] [place], Nurse Annual [address] [place] [address] 04/24/2024 3:30 PM EDT Office Visit Cardiology [address] [place] [address] Herberth Denny PA-C [address] [place] [address] Health Maintenance Due Date Last Done Comments DXA Scan 01/04/2023 01/05/2020, 01/04/2015 COVID-19 Vaccine ( season) 2023 Colonoscopy 04/19/2023 04/19/2018, 03/26, 09/29/2014, Additional history exists CKD HGB USE SMARTSET 49938 01/20/202401/19, 01/19/2023, 07/03/2022, Additional history exists Diabetic [...] Additional history exists CKD PHOS USE SMARTSET 57445 10/08/202409/23, 07/03/2022, 05/11/2021, Additional history exists DTaP,Tdap,and [...] this encounter Medical Devices Implanted Type Area Filter Tender Jelly Device Identifier Shelf Expiration Date Model / Serial / Lot Lens Intraoc 19.5 - [id number] - [id number] Implanted:Qty: 1 on 03/17/2021 by Migel Dejesus MD at OR [facility] Left: Eye [employer] 10/22/2025 [id number] / [id number] / [id number] Lens Intraoc 20.0 - [id number] - [id number] Implanted:Qty: 1 on 03/31/2021 by Migel Dejesus MD at OR [facility] Right: Eye [employer]OMB 12/22/2025 [id number] / [id number] / [id number] documented as of this encounter Advance Directives Healthcare Agents on File Name Relationship Healthcare Agent Relationshi p Communication Mimi Jarrell Adult Child Health Care Repr esentative (appointed verbally by patient or by statute hierarchy) Yanci Adkins Adult Child Health Care Repr esentative (appointed verbally by patient or by statute hierarchy) Care Teams Program Admin Relationship Specialty Start Date End Date Rosemary Valentine MD [address] [place] [address] [place] [phone] PCP - General Family Medicine 09/05/23 documented as of this encounter
--- OUTSIDE RECORDS SUMMARY | 2023-12-02 01:53 | External Medical Summary | Summary of Care ---
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 A maryan in chest and back. SOB with activity but no worse then prior. Dizziness with movement not to often and last a few minutes. Denies palpitations and edema. Encounter Details Date Type Department Care Team (Late st Contact Info) Description 10/16/2023 3:00 PM EDT Office Visit Cardiology [address] [place] [address] Herberth Denny PA-C [address] [place] [address] Severe headache*; Dyslipidemia, goal LDL below 70; HTN, goal below 140/90; Paroxysmal atrial fibrillation (HCC); SOB (shortness of breath); Asymptomatic bilateral carotid artery stenosis; Chronic diastolic congestive heart failure (HCC) Allergies Active Allergy Reactions Criticality Noted Date Comments Codeine Nausea/vomiting 08/15/2011 Propoxyphene N-Acetaminophen Nausea/vomiting Low 08/24/2008 Iodinated Contrast Media Hives 02/06/2023 Iodine Hives 01/08/2001 Latex 09/26/2012 Contact dermititis Nitrofurantoin Rash 09/07/2014 Metformin 04/12/2021 documented as of this encounter (statuses as of 10/17/2023) Medications Medication Sig Dispensed Refills Start Date [...] every 8 hours as needed. 0 Active predniSONE 10 MG Oral Tablet (Deltasone)Indicat ions:Moderate persistent asthma with exacerbation,Acute cough Take 5 tabs for 2 days, 4 tabs for 2 days, 3 tabs for 2 days, 2 tabs for 2 days 1 tab for 2 days 30 Tablet 0 08/28/2023 Discontinue d(End of Procedure) Hospital, Clinic, or Other Facility Administered Medication Ordered Dose Route Frequency Start Date End Date Status vitamin b-12 (Cyanocobalamin) inj 1,000 mcgIndications:Vitamin B12 deficiency 1000 mcg IM [id number] 02/06/2023 01/08/2024 Active documented as of this encounter (statuses as of 10/17/2023) Active Problems Problem Noted Date Diagnosed Date [...] as of this encounter (statuses as of 10/17/2023) Resolved Problems Problem Noted Date Diagnosed Date [...] Taxonomy. Impaired fasting glucose 06/23/200607/2011 LOC PRIM [id number] 04/16/200609/24 LOC PRIM OSTEOARTH-ANKLE 04/16/2006 Sprain of [...] as of this encounter (statuses as of 10/17/2023) Immunizations Name Administration Dates Next Due Pneumococcal [...] on file documented as of this encounter Last Filed Vital Signs Vital Sign Reading Time Taken Comments Blood Pressure 128/78 10/16/2023 2:46 PM EDT Pulse 80 10/16/2023 2:46 PM EDT Temperature - - Respiratory Rate 16 10/16/2023 2:46 PM EDT Oxygen Saturation - - Inhaled Oxygen Concentration - - Weight 87.2 kg (192 lb 4.8 oz) 10/16/2023 2:46 P M EDT Height - - Body Mass Index 38.82 02/06/2023 7:48 AM EDT documented in this encounter Progress Notes * Herberth Denny PA-C - 10/16/2023 3:05 PM EDT History of Present Illness: Violeta Calvert is a 78 year old female who presents today for routine cardiology follow-up\\ appointment Patient notes going to bed last night and feeling well, unfortunately awakening in the middle the night with a headache. She notes that the headache last night was the worst headache she has ever had. She notes not having any Tylenol at home and thus taking 2 ibuprofen. She notes being up most of the night. Around 7:00 a.m. this morning the headache seemed to improve. She has a history of chronic headaches and migraines however this one was different. She notes concern as her father with what sounds like a brain aneurysm at the age of 52. Patient did not seek care in the ER or via her PCP. She has no current neurological symptoms or observed deficit. No visual issues, blurred vision, double vision, speech issues, ambulatory dysfunction, etc,. No new or worsening chest pain, chronically with heaviness in the chest aided by the use of a rescue inhaler. D yspnea is stable, occurring with activities of daily living. She remains very inactive. She has daytime fatigue, hypersomnolence, and remains noncompliant with treatment for her sleep apnea and I wonder if this is may be contributing to her headaches. No activity related chest pain. No pleuritic chest pain. No palpitations. No dizziness or syncope. No fevers or chills. No rash. No dysuria. No melena or hematochezia. Problem List: Chest pain leading to abnormal stress testing and ultimately September 23, 2015 diagnostic cardiac catheterization at [facility] demonstrating diffuse minor irregularities, no explaination for the abnormal stress test or her symptoms. The left ventricular end diastolic pressure was 20 mmHg. Lone documented episode of paroxysmal atrial fibrillation in August 2014 when hospitalized at [facility] with abdominal pain and discomfort, lapsing briefly into atrial fibrillation with spontaneous return to sinus rhythm. Course notable for acute drug reaction to antibiotic therapy for a possible urinarytract infection with Macrobid, developing severe rash, acute renal dysfunction, transiently worsening anemia. Palpitations, previously documented to be in association with sensed ectopy. Hypertension Dyslipidemia with poor tolerance to statin therapy Type II diabetes mellitus Stage III chronic kidney disease Obstructive sleep apnea, untreated, unable to tolerate CPAP therapy. Hiatal hernia Gastritis Hypothyroidism Migraine headaches Vertigo Osteoarthritis status post left total knee replacement at [facility] in July 2016. Chronic constipation + Covid-19 in early June 2020. Patient Active Problem List Diagnosis Code Other allergic rhinitis J30.89 Varicose vein of leg I83.90 Acquired hypothyroidism E03.9 ADVANCE DIRECTIVE INFORMATION CERVICAL DISC DEGEN M50.30 Generalized osteoarthritis of multiple sites M15.9 Degeneration of lumbosacral intervertebral disc M51.37 Primary localized osteoarthrosis of shoulder region M19.019 Spinal stenosis of lumbar region without neurogenic claudication M48.061 Acquired spondylolisthesis M43.10 Moderate persistent asthma without complication J45.40 Cervical spine degeneration M47.812 Dyslipidemia, goal LDL below 100 E78.5 HTN, goal below 140/90 I10 Vitamin B12 deficiency E53.8 Statin intolerance Z78.9 OA (osteoarthritis) of knee M17.9 Multiple pulmonary nodules R91.8 Hiatal hernia K44.9 Paroxysmal atrial fibrillation ([facility]) I48.0 S/P total knee replacement using cement Z96.659 Osteoarthritis of left hip M16.12 Type 2 diabetes mellitus with polyneuropathy ([facility]) E11.42 Asymptomatic bilateral carotid artery stenosis I65.23 Gastroesophageal reflux disease with esophagitis K21.00 Anxiety, generalized F41.1 Hypertensive kidney disease with stage 3a chronic kidney disease I12.9, N18.31 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 Current moderate episode of major depressive disorder without prior episode ([facility]) F32.1 Type 2 diabetes mellitus with stage 3a chronic kidney disease, without long-term current use of insulin ([facility]) E11.22, N18.31 History of 2019 novel coronavirus disease (COVID-19) Z86.16 Immunization not carried out because of patient decision Z28.20 BMI 40.0-44.9, adult ([facility]) Z68.41 Atherosclerosis of aorta ([facility]) I70.0 Slow transit constipation K59.01 Morbid obesity ([facility]) E66.01 Chronic diastolic congestive heart failure ([facility]) I50.32 Chronic chest pain R07.9, G89.29 Physical deconditioning R53.81 Past Medical History: Diagnosis Date Acute cystitis 07/13/2012 E coli, resistent to oral antibiotics Allergic rhinitis due to other allergen Asthma Asthma, severity to be determined Benign paroxysmal vertigo 11/05/2000 Body mass index (BMI) of 40.0 to 44.9 in adult ([facility]) 01/31/2021 Per Obesity protocol Calcific tendinitis of right shoulder 08/15/2011 Carotid stenosis, non-symptomatic 08/2007 left carotid Cervical spine degeneration 08/15/2011 Cramp in limb 09/28/2003 Degeneration of cervical intervertebral disc Degeneration of lumbosacral intervertebral disc Displacement of lumbar intervertebral disc without myelopathy 12/22/2003 DM type 2, goal A1c below 7 08/25/2011 Dyslipidemia, goal LDL below 100 01/25/2010 Gastritis 09/2014 Generalized osteoarthritis Hiatal hernia 07/[address] HTN, goal below 130/80 06/22/2009 HTN, goal below 140/80 HTN, goal below 140/90 Hypothyroidism Intermittent asthma with reliever use up to twice per week 01/25/2010 Iron deficiency anemia Localized, primary osteoarthritis of ankle or foot 04/16/2006 Lung nodule Migraine without aura Mixed dyslipidemia Multiple pulmonary nodules 08/17/2014 largest 7 mm in LLL Non-traumatic compression fracture of T3 thoracic vertebra 05/2015 possible mild T3 comp fx Open wound of knee, leg, and ankle 09/15/2003 cut left lower leg with plywood and was sutured in [facility] ER, got infected Primary localized osteoarthrosis, lower leg 04/16/2006 Reflux esophagitis Rotator cuff tear Rotator cuff tear, left 10/2012 Sciatica 12/04/2003 Sleep apnea, obstructive Spondylosis with myelopathy cervical spine Statin intolerance Vitamin B12 deficiency Past Surgical History: Procedure Laterality Date COLONOSCOPY, DIAGNOSTIC (RECTUM) 09/29/2014 Diverticulosis, adenomatous polyp, 3 yr repeat/COLONOSCOPY FLEXIBLE PROXIMAL DIAGNOSTIC performed by Joni Leone MD at [facility] COLONOSCOPY, DIAGNOSTIC (RECTUM) 04/19/2018 hyperplastic polyp, repeat 5yrs/COLONOSCOPY FLEXIBLE PROXIMAL DIAGNOSTIC performed by Celia Cheng MD at [facility] CORONARY ANGIOGRAPHY W/LEFT HEART CATH 09/23/2015 CORONARY ANGIOGRAPHY W/LEFT HEART CATH performed by Brandon Currie MD at [facility] [place] CT CHEST W CONTRAST 10/23/2016 stable to minimally progressive nodules in LLL. repeat 6-[address] HEAD/BRAIN WO CONTRAST 10/25/2001 [facility]--cannot totally exclude the possibility of an aneurysm of the junction of the internal carotid and right middle cerebral arteries.essentially negative CT scan of the head. CV STRESS (ERGONOVINE) 04/2000 normal DILATION AND CURETTAGE (D&C) EGD, FLEXIBLE, DIAGNOSTIC 09/29/2014 normal bx/ESOPHAGOGASTRODUODENOSCOPY (EGD), FLEXIBLE, TRANSORAL, DIAGNOSTIC performed by Joni Leone MD at [facility] EGD, FLEXIBLE, DIAGNOSTIC 04/19/2018 mild chronic inflammation/ESOPHAGOGASTRODUODENOSCOPY (EGD), FLEXIBLE, TRANSORAL, DIAGNOSTIC performed by Celia Cheng MD at [facility] EGD, FLEXIBLE, DIAGNOSTIC 11/10/2020 Normal scope /biopsies from your duodenum and esophagus returned normal / ESOPHAGOGASTRODUODENOSCOPY (EGD), FLEXIBLE, TRANSORAL, DIAGNOSTIC performed by Celia Cheng MD at [facility] EGD, FLEXIBLE, DIAGNOSTIC 02/06/2023 biopsies show gluten sensitivity/ESOPHAGOGASTRODUODENOSCOPY (EGD), FLEXIBLE, TRANSORAL, DIAGNOSTIC performed by Celia Cheng MD at [facility] ENDO DECOMPRESS SPINAL CORD W/LAMINOTOMY, THORACIC 11/23/2008 Dr Hickey- [facility] FLUORO UPPER GI W AIR WO KUB 06/01/2006 small sliding hiatal hernia, without GERD FULL PULMONARY FUNCTION TEST 04/2000 HOLTER MONITOR 02/1999 LAPAROSCOPY; CHOLECYSTECTOMY 08/25/2004 Dr. Person MAMMOGRAM SCREENING-BILATERAL 04/16/2006 almost entirely fat, category 1, normal MRA HEAD W WO CONTRAST 10/2001 normal MRI ABDOMEN WO CONTRAST 07/29/2015 No acute abnormality is seen as visualized. Gallbladder surgically absent MRI L SPINE W WO CONTRAST 08/15/1993 degenerative disc disease at T12-L1 causing some anterior compromise of spinal canal, left lateral disc herniation at L4-5 level causing compromise of the left L4 and possibly L5 nerve roots MRI SHOULDER WO CONTRAST 08/2011 Huge complete tear of entire supraspinatus and most of subscapularis; medial intra-articular dislocation of long head of biceps MRI SHOULDER WO CONTRAST 11/2012 rotator cuff tendinopathy and small full thickness tear PFT B/A 04/2012 ?restrictive airflow defect REMOVAL OF APPENDIX REMOVAL OF OVARY/OVIDUCT(S) 1970 right side REMOVE CATARACT, INSERT LENS PROSTH Left 03/17/2021 left XTRACAPSULAR CATARACT REMOVAL WITH INTRAOCULAR LENS performed by Migel Dejesus MD at[facility] REMOVE CATARACT, INSERT LENS PROSTH Right 03/31/2021 right EXTRACAPSULAR CATARACT REMOVAL WITH INTRAOCULAR LENS performed by Migel Dejesus MD at OR [facility] REMOVE TONSILS & ADENOIDS, AGE 12+ REVISE KNEE JOINT REPLACEMENT Left 08/09/2016 Dr Palmer STRESS ECHO (DOBUTAMINE) 07/2014 no ischemia; EF 6-065% Family History: Father with a stroke. Mother had congestive heart failure and CAD. Sister withcolon cancer. Brother with lung cancer. Four daughters without cardiac issues. Social History: Reformed smoker. She smoked for about 5 years in her 20's. No significant alcohol. No illegal drug use. 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 Four children, all girls. Complete Review of Systems is as stated above, negative, or noncontributory Review of patient's allergies indicates: Allergen Reactions Codeine Nausea/vomiting Iodinated Contrast Media Hives Iodine Hives Latex Contact dermititis Macrobid [Nitrofurantoin] Rash Metformin Darvocet [Propoxyphene N-Acetaminophen] Nausea/vomiting Current Outpatient Medications Medication Sig Dispense Refill ASPIRIN 81 MG PO TABS Take 1 Tablet by mouth in the morning. Iron-Vitamin C 65-125 MG Oral Tablet Take 1 Tablet by mouth in the morning. 90 Tab 3 Polyethylene Glycol 3350 17 GM/SCOOP Oral Powder Take 17 g by mouth at bedtime as needed for Constipation. Loratadine 10 MG Oral Capsule Take 1 Capsule by mouth in the morning. Cyanocobalamin 1000 MCG/ML Injection Solution (Cyanocobalamin) Inject as directed 1,000 mcg every 30 days . 1 mL 11 AgilOneTouch Verio w/Device Kit Use up to 4 times a day E11.9 1 Kit 0 hydroCHLOROthiazide 12.5 MG Oral Tablet (Hydrodiuril) TAKE ONE TABLET BY MOUTH IN THE MORNING 90 Tablet 3 OneTouch Verio In Vitro Strip (Glucose Blood) Use once daily to check glucose E11.9 100 Strip 5 OneTouch UltraSoft Lancets Use once daily to check glucose E11.9 100 Each 5 Rosuvastatin Calcium 10 MG Oral Tablet (Crestor) Take 1 Tablet by mouth in the morning. 90 Tablet 3 Docusate Sodium 100 MG Oral Capsule (Colace) Take 2 Capsules by mouth at bedtime as needed for Constipation. Patient taking daily at bedtime Pantoprazole Sodium 20 MG Oral Tablet Delayed Release (Protonix) Take 1 Tablet by mouth in the morning and 1 Tablet in the evening. 180 Tablet 1 Ezetimibe 10 MG Oral Tablet (Zetia) TAKE ONE TABLET BY MOUTH IN THE MORNING 90 Tablet 3 Albuterol Sulfate HFA 108 (90 Base) MCG/ACT Inhalation Aerosol Solution Inhale 2 Puffs by mouth every 6 hours as needed for Shortness of Breath or Wheezing. 18 g 5 Sertraline HCl 100 MG Oral Tablet (Zoloft) TAKE 1 - 2 TABLETS BY MOUTH EVERY DAY 200 Tablet 2 Ondansetron HCl 4 MG Oral Tablet (Zofran) take 1 tablet every 6 hours as needed for nausea. 30 Tablet 2 Fluticasone Propionate 50 MCG/ACT Nasal Suspension (Flonase) Administer 2 Sprays into each nostril in the morning. 18.2 mL 11 Irbesartan 150 MG Oral Tablet (Avapro) Take 1 Tablet by mouth in the morning. 90 Tablet 1 Levothyroxine Sodium 150 MCG Oral Tablet (Levoxyl) Take 1 Tablet by mouth daily first thing in the morning. (at least 30 min prior to breakfast or other meds) 90 Tablet 1 Metoprolol Tartrate 50 MG Oral Tablet (Lopressor) take 1 and 1/2 tablets in the morning and 1 tablet in the evening. 225 Tablet 3 Trulicity 0.75 MG/0.5ML Subcutaneous Solution Pen-injector (Dulaglutide) Inject 0.75 mg under the skin once a week. (on Mondays) 6 mL 1 Olopatadine HCl 0.1 % Ophthalmic Solution (Pataday) Instill 1 Drop into both eyes in the morning and 1 Drop before bedtime. Loteprednol Etabonate 0.5 % Ophthalmic Suspension (Lotemax) Instill 1 Drop into both eyes 2 times aday. Hewjkvblmuz-Jjxvrfhvi-Mxwzgz 200-62.5-25 MCG/ACT Aerosol Powder Breath Activated (Trelegy Ellipta) Inhale 1 Puff by mouth daily. 60 Blister Dosing Unit 3 ALPRAZolam 0.5 MG Oral Tablet (xaNAX) take 1 tablet in the morning and evening if needed for anxiety 60 Tablet 0 Acetaminophen ER 650 MG Oral Tablet Extended Release (Arthritis Pain Relief) Take 1 Tablet by mouthevery 8 hours as needed. Acetaminophen ER 650 MG Oral Tablet Extended Release Take 1 Tablet by mouth every 8 hours as needed. Current Facility-Administered Medications Medication Dose Route Frequency Provider Last Rate Last Admin vitamin b-12 (Cyanocobalamin) inj 1,000 mcg 1,000 mcg Intramuscular Q4 Weeks James Erazo MD 1,000 mcg at 09/14/23 1448 PHYSICAL EXAMINATION: BP 128/78 | Pulse 80 | Resp 16 | Wt 87.2 kg (192 lb 4.8 oz) | BMI 38.82 kg/m | BSA 1.91 m General: NAD. Elevated BMI. HENT: Normocephalic and atraumatic. Eyes: PER. Neck: Bilateral carotid bruits. No JVD. Lungs: Diminished but clear to auscultation. Cardiovascular Exam: RRR, 76 bpm. Soft apical systolic murmur. No diastolic murmur. Abdomen: +BS. Soft. Nontender. Extremities: Varicose veins. No edema. No clubbing. No cyanosis. Pulses: Intact distal pulses. Neurologic: No focal deficits. Data: August 2015 ZioXT Monitor: Sinus. Average 69 bpm. Minimum 46. Maximum 124 bpm. Three supraventricular tachycardia rune with the longest lasting 8 beats at 100 bpm. Patient event markers correlated with sensed isolate atrial and ventricular ectopy. September 23, 2015 diagnostic cardiac catheterization: Diffuse minor irregularities, no explaination for the abnormal stress test or her symptoms. LVEDP 20mmHg. October 19, 2020 TTE Interpretation Summary (as per Dr. Qiuck): The qualitative LV ejection fraction is 60-64% (normal). The LV wall thickness is mildly increased (concentric). The left ventricular diastolic function is mildly abnormal (grade I). There is mild mitral annular calcification. Compared to prior study of 09/14/2015, there is no significant change. Lipid Panel Results: Results for orders placed or performed in visit on 11/27/22 LIPID PANEL WITH DIRECT LDL IF TG IS HIGH Result Value Ref Range Triglycerides 136 <=174 mg/dL Cholesterol 133 <200 mg/dL HDL Cholesterol 44 (L) >49 mg/dL Non-HDL Cholesterol 89 <=159 mg/dL LDL Cholesterol 62 <=129 mg/dL EKG on 02/08/2023 personally reviewed, revealed normal sinus rhythm at 71 bpm. QTc 454 ms. ASSESSMENT: Chronic stable atypical chest pain Hypertension, controlled. Dyslipidemia with poor tolerance to statin therapy. Tolerating low dose rosuvastatin and ezetimibe,LDL well controlled in November 222 Compensated diastolic congestive heart failure Palpitations, quiescent, previously documented to be in association with sensed ectopy. Lone documented episode of paroxysmal atrial fibrillation in August 2014, as detailed above Stage III chronic kidney disease Sleep apnea, untreated. Deconditioned status Significant, new, headache overnight, without neurologic deficit via evaluation today. RECOMMENDATIONS/PLAN: Options of management discussed. Brain MRI requested. Patient notes a remote history of contrast allergy (hives) and declines contrast administration with the brain MRI. She should follow-up with her PCP as well. Continue the maximally tolerated dose of rosuvastatin which is 10 mg/day and ezetimibe 10 mg/day. Recommend resumption of CPAP therapy. Routine cardiology follow-upin 6 months or as needed. ER with emergencies. Herberth Denny PA-C Department of Cardiology I spent a total of 30-39 minutes (exact time 36 mins) on the date of service in preparation, delivery, and documentation of the care provided to Violeta Calvert excluding any time spent in the performance of separately billed services. This visit involved medical care services related to at least oneserious condition or complex condition requiring ongoing care. This chart was completed in part util e[employer] Speech Voice Recognition Software. Grammatical errors, random word insertions, prounoun errors, and incomplete sentences are an occasional consequence of this system due to software limitations, ambient noise, and hardware issues. Any formal questions or concerns about the content, text, or information contained within the body of this dictation should be directly addressed to the provider for clarification. documented in this encounter Nursing Notes * Pedro Luis Clemente LPN - 10/16/2023 2:46 PM EDT Patient identified by full name and date of Chief Complaint Patient presents with Follow Up 8 month follow up. Ache in chest and back. SOB with activity but no worse then prior. Dizziness with movement not to often and last a few minutes. Denies palpitations and edema. Examination Room: 4 Name: Violeta Calvert Date of : (1945). Reason for Visit: 8 month follow up Interim Hospitalization(s): Denies Problems/Concerns: See chief complaint Chest Pain/SOB: See chief complaint [facility] Discussed: Yes My [facility] is a way you can talk to your provider online through e-mail. Would you like to sign up? I can activate it for you? DECLINES Patient was instructed to not get up on the exam table until directed and assisted by their provider; patient is to remain seated in the chair/ wheelchair/ exam table for fall prevention and safety reasons. Patient is aware to have assistance to step down off exam table with personnel. Patient voiced full comprehension of instructions. documented in this encounter Plan of Treatment Upcoming Encounters Date Type Department Care Team (Late st Contact Info) Description 11/07/2023 4:15 PM EDT Imaging Radiology [address] [place] [id number] 12/17/2023 5:40 PM EDT Office Visit Family Medicine [address] [place] [phone] Rosemary Valentine MD [address] [place] [address] [place] [phone] 02/01/2024 3:00 PM EDT Nurse Only Ancillary [address] [place] [address] [place], Nurse Annual Wellness [address] [place] [address] [place] [phone] 04/24/2024 3:30 PM EDT Office Visit Cardiology [address] [place] [address] Herberth Denny PA-C [address] [place] [address] Scheduled Orders Name Type Priority Associated Diagnoses Orde r Schedule MRI BRAIN WITHOUT CONTRAST Medical Imaging Routine Severe headache Expected: 10/23/2023, Expires: 11/14/2024 Health Maintenance Due Date Last Done Comments DXA Scan 01/04/2023 01/05/2020, 01/04/2015 COVID-19 Vaccine ( season) 2023 COLONOSCOPY-EVERY 5 YRS AGES 18-100 04/19/2023 04/19/2018, 04/19/2018, 09/29/2014, Additional history exists CKD HGB USE SMARTSET 93241 01/20/202401/19, 01/19/2023, 07/03/2022, Additional history exists Diabetic [...] Additional history exists CKD PHOS USE SMARTSET 95522 10/08/202409/23, 07/03/2022, 05/11/2021, Additional history exists DTaP,Tdap,and [...] this encounter Medical Devices Implanted Type Area Horticulture Teacher Device Identifier Shelf Expiration Date Model / Serial / Lot Lens Intraoc 19.5 - [id number] - [id number] Implanted:Qty: 1 on 03/17/2021 by Migel Dejesus MD at OR [facility] Left: Eye [employer] 10/22/2025 [id number] / [id number] / [id number] Lens Intraoc 20.0 - [id number] - [id number] Implanted:Qty: 1 on 03/31/2021 by Migel Dejesus MD at OR [facility] Right: Eye [employer] 12/22/2025 [id number] / [id number] / [id number] documented as of this encounter Visit Diagnoses Diagnosis Severe headache- Primary Headache Dyslipidemia, goal LDL below 70 Other and unspecified hyperlipidemia HTN, goal below 140/90 Unspecified essential hypertension Paroxysmal atrial fibrillation (HCC) Atrial fibrillation SOB (shortness of breath) Shortness of breath Asymptomatic bilateral carotid artery stenosis Occlusion and stenosis of multiple and bilateral precerebral arteries without mention of cerebral infarction Chronic diastolic congestive heart failure (HCC) Chronic diastolic heart failure documented in this encounter Advance Directives Healthcare Agents on File Name Relationship Healthcare Agent Relationshi p Communication Mimi Jarrell Adult Child Health Care Repr esentative (appointed verbally by patient or by statute hierarchy) Yanci Lucille Adult Child Health Care Repr esentative (appointed verbally by patient or by statute hierarchy) Care Teams Lawn Mower Mechanic Relationship Specialty Start Date End Date Rosemary Valentine MD [address] [place] [address] [place] [phone] PCP - General Family Medicine 09/05/23 documented as of this encounter
--- OUTSIDE RECORDS SUMMARY | 2023-12-02 01:53 | External Medical Summary | Summary of Care ---
Author Name Unknown Organization [facility] Address [address] [place] [address] Phone [phone] Care Team Providers Care Online Advertising Director Name Role Phone Rosemary Valentine MD Primary Care Provide r Reason for Visit * Reason Onset Date Comments Medication Refill 10/29/2023 Encounter Details Date Type Department Care Team (Late st Contact Info) Description 10/29/2023 Refill Cardiology, [facility] [address] [place] [id number] Angel Abbasi PAChidi [address] [place] [address] Dyslipidemia, goal LDL below 100 Allergies Active Allergy Reactions Criticality Noted Date [...] THE MORNING 90 Tablet 3 08/17/2022 Active TaykeyTouch Verio In Vitro Strip (Glucose Blood)Indications: Type 2 diabetes mellitus with stage 3a chronic kidney disease, without long-term current use of insulin (HCC) Use once daily to check glucose E11.9 100 Strip 5 08/21/2022 Active TaykeyTouch UltraSoft LancetsIndications :Type 2 diabetes mellitus with [...] the morning. 90 Tablet 3 10/29/2023 Active Rosuvastatin Calcium 10 MG Oral Tablet (Crestor)Indicatio ns:Dyslipidemia, goal LDL below 100 Take 1 Tablet by mouth in the morning. 90 Tablet 3 09/22/2022 4 Discontinue d(Refill) Hospital, Clinic, or Other Facility Administered Medication Ordered Dose Route Frequency Start Date End Date Status vitamin b-12 (Cyanocobalamin) inj 1,000 mcgIndications:Vitamin B12 deficiency 1000 mcg IM [id number] 02/06/2023 01/08/2024 Active documented as of this [...] S/P total knee replacement using cement 09/05/19 Paroxysmal atrial fibrillation 09/07/2014 Multiple pulmonary nodules [...] Taxonomy. Impaired fasting glucose 06/23/200607/2011 LOC PRIM [id number] 04/16/200609/24 LOC PRIM OSTEOARTH-ANKLE 04/16/2006 Sprain of [...] encounter Miscellaneous Notes * Telephone Encounter - Angel Abbasi PA-C - 10/29/2023 12:12 PM EDTSigned Prescriptions: Disp Refills Rosuvastatin Calcium 10 MG Oral Tablet (Cr*90 Tab*3 Sig: Take 1 Tablet by mouth in the morning. Authorizing Provider: ANGEL ABBASI * Telephone Encounter - Jade Forrester [facility] - 10/29/2023 12:04 PM EDT Did you pend patient's preferred pharmacy and medication before forwarding?yes Pharmacy: [id number] [facility] Pending Prescriptions: Disp Refills Rosuvastatin Calcium 10 MG Oral Tablet (C*90 Tab*3 Sig: Take 1 Tablet by mouth in the morning. Last Visit: 08/07/2022 (in office), Visit date not found (telemedicine) Next Visit: Visit date not found If no future appointments scheduled, and last appointment is greater than a year ago, please schedule patient for a follow-up appointment Last date the medication was ordered: 09.22.22 Is this request for a controlled substance?No [...] Description 11/07/2023 4:15 PM EDT Imaging Radiology [address] [facility] [place] [address] 12/17/2023 5:40 PM EDT Office Visit Family Medicine [address] [place] [phone] Rosemary Valentine MD [address] [place] [address] [place] [address] 02/01/2024 3:00 PM EDT Nurse Only Ancillary [address] [place] [address] [place], Nurse Annual Wellness [address] [place] [address] [place] [address] 04/24/2024 3:30 PM EDT Office Visit Cardiology [address] [place] [address] Angel Abbasi PA-C [address] [place] [phone] Health Maintenance Due Date Last Done Comments DXA Scan 01/04/2023 01/05/2020, 01/04/2015 COVID-19 Vaccine ( season) 2023 Colonoscopy 04/19/2023 04/19/2018, 03/26, 09/29/2014, Additional history exists CKD HGB USE SMARTSET 73038 01/20/202401/19, 01/19/2023, 07/03/2022, Additional history exists Diabetic [...] Additional history exists CKD PHOS USE SMARTSET 04761 10/08/202409/23, 07/03/2022, 05/11/2021, Additional history exists DTaP,Tdap,and [...] this encounter Medical Devices Implanted Type Area Showcase Trimmer Device Identifier Shelf Expiration Date Model / Serial / Lot Lens Intraoc 19.5 - [id number] - [id number] Implanted:Qty: 1 on 03/17/2021 by Migel Dejesus MD at [facility] Left: Eye [employer] 10/22/2025 [id number] / [id number] / [id number] Lens Intraoc 20.0 - [id number] - [id number] Implanted:Qty: 1 on 03/31/2021 by Migel Dejesus MD at [facility] Right: Eye [employer]OM[employer] 12/22/2025 [id number] / [id number] / [id number] documented as of this encounter Visit Diagnoses Diagnosis Dyslipidemia, goal LDL below 100 Other and unspecified hyperlipidemia documented in this encounter Advance Directives Healthcare Agents on File Name Relationship Healthcare Agent Relationshi p Communication Mimi Vieyra Adult Child Health Care Repr esentative (appointed verbally by patient or by statute hierarchy) Yanci Adkins Adult Child Health Care Repr esentative (appointed verbally by patient or by statute hierarchy) Care Teams Online Advertising Director Relationship Specialty Start Date End Date Rosemary Valentine MD [address] [place] [address] [place] [phone] PCP - General Family Medicine 09/05/23 documented as of this encounter
--- OUTSIDE RECORDS SUMMARY | 2023-12-02 01:54 | External Medical Summary | Summary of Care ---
Author Name Unknown Organization [facility] Address [address] [place] [address] Phone [phone] Care Team Providers Care Ground Wirer Name Role Phone Rosemary Valentine MD Primary Care Provide r Encounter Details Date Type Department Care Team (Late st Contact Info) Description 09/26/2023 1:30 PM EDT Medication Management Unruly Escobedo [facility] [address] [place] [address] Pharmacist, Unruly Escobedo [facility] [address] [place] [address] Referred for management of medication therapy* Allergies Active Allergy Reactions Criticality Noted Date Comments Codeine Nausea/vomiting 08/15/2011 Propoxyphene N-Acetaminophen Nausea/vomiting Low 08/24/2008 Iodinated Contrast Media Hives 02/06/2023 Iodine Hives 01/08/2001 Latex 09/26/2012 Contact dermititis Nitrofurantoin Rash 09/07/2014 Metformin 04/12/2021 documented as of this encounter (statuses as of 09/27/2023) Medications Medication Sig Dispensed Refills Start Date End Date Status ASPIRIN 81 MG PO TABSIndications:h eart Take 1 Tablet by mouth in the morning. 0 Active Iron-Vitamin C 65-125 MG Oral Tablet Take 1 Tablet by mouth in the morning. 90 Tab 3 6 Active Polyethylene Glycol 3350 17 GM/SCOOP Oral PowderIndications :constipation Take 17 g by mouth at bedtime as needed for Constipation. 0 Active Loratadine 10 MG Oral CapsuleIndication s:allergies Take 1 Capsule by mouth in the morning. 0 Active Cyanocobalamin 1000 MCG/ML Injection Solution (Cyanocobalamin) Inject as directed 1,000 mcg every 30 days . 1 mL 11 2 Active OneTouch Verio w/Device KitIndications:Ty pe 2 diabetes mellitus with stage 3a chronic kidney disease, without long-term current use of insulin (HCC) Use up to 4 times a day E11.9 1 Kit 0 2 Active hydroCHLOROthiazi de 12.5 MG Oral Tablet (Hydrodiuril) TAKE ONE TABLET BY MOUTH IN THE MORNING 90 Tablet 3 3 Active OneTouch Verio In Vitro Strip (Glucose Blood)Indications :Type 2 diabetes mellitus with stage 3a chronic kidney disease, without long-term current use of insulin (HCC) Use once daily to check glucose E11.9 100 Strip 5 3 Active OneTouch UltraSoft LancetsIndication s:Type 2 diabetes mellitus with stage 3a chronic kidney disease, without long-term current use of insulin (HCC) Use once daily to check glucose E11.9 100 Each 5 3 Active Rosuvastatin Calcium 10 MG Oral Tablet (Crestor)Indicati ons:Dyslipidemia, goal LDL below 100 Take 1 Tablet by mouth in the morning. 90 Tablet 3 3 Active Acetaminophen ER 650 MG Oral Tablet [...] Tablet in the evening. 180 Tablet 1 3 Active Ezetimibe 10 MG Oral Tablet (Zetia)Indication s:Dyslipidemia, goal LDL below 70 TAKE ONE TABLET BY MOUTH IN THE MORNING 90 Tablet 3 3 Active Albuterol Sulfate HFA 108 (90 Base) MCG/ACT Inhalation Aerosol SolutionIndicatio ns:Intermittent asthma with reliever use up to twice per week without complication,SOB (shortness of breath) Inhale 2 Puffs by mouth every 6 hours as needed for Shortness of Breath or Wheezing. 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 30 Tablet 2 4 Active Fluticasone Propionate 50 MCG/ACT Nasal Suspension (Flonase)Indicati ons:Seasonal allergic rhinitis due to pollen Administer 2 Sprays into each nostril in the morning. 18.2 mL 11 4 Active Irbesartan 150 MG Oral Tablet (Avapro) Take 1 Tablet by mouth in the morning. 90 Tablet 1 4 Active Levothyroxine Sodium 150 MCG Oral Tablet (Levoxyl) Take 1 Tablet by mouth daily first thing in the morning. (at least 30 min prior to breakfast or other meds) 90 Tablet 1 4 Active Metoprolol Tartrate 50 MG Oral Tablet (Lopressor) take 1 and 1/2 tablets in the morning and 1 tablet in the evening. 225 Tablet 3 4 Active predniSONE 10 MG Oral Tablet (Deltasone)Indica tions:Moderate persistent asthma with exacerbation,Acut e cough Take 5 tabs for 2 days, 4 tabs for 2 days, 3 tabs for 2 days, 2 tabs for 2 days 1 tab for 2 days 30 Tablet 0 4 Active Additional Information Patient not taking.Reported on 09/26/2023 ALPRAZolam 0.5 MG Oral Tablet (xaNAX)Indication s:Anxiety take 1 tablet in the morning and evening if needed for anxiety 60 Tablet 0 4 Active Trulicity 0.75 MG/0.5ML Subcutaneous Solution Pen-injector (Dulaglutide)Danica cations:Type 2 diabetes mellitus with stage 3a chronic kidney disease, without long-term current use of insulin (HCC) Inject 0.75 mg under the skin once a week. (on Mondays) 6 mL 1 4 Active Olopatadine HCl 0.1 % Ophthalmic Solution (Pataday) Instill 1 Drop into both eyes in the morning and 1 Drop before bedtime. 0 Active Loteprednol Etabonate 0.5 % Ophthalmic Suspension (Lotemax) Instill 1 Drop into both eyes 2 times a day. 0 3 Active Fluticasone-Umecl idin-Vilant 200-62.5-25 MCG/ACT Aerosol Powder Breath Activated (Trelegy Ellipta) Inhale 1 Puff by mouth daily. 60 Blister Dosing Unit 3 4 Active Fluticasone-Salme terol 250-50 MCG/ACT Inhalation Aerosol Powder Breath Activated (Advair Diskus) Inhale 1 Puff by mouth in the morning and 1 Puff before bedtime. 180 Each 1 3 09/26/19 24 Discontinued Tiotropium [place] Monohydrate 18 MCG Inhalation Capsule (Spiriva)Indicati ons:Moderate persistent asthma without complication Inhale 1 Capsule by mouth in the morning. For inhaler only, do not swallow.. 30 Capsule 12 3 09/26/19 24 Discontinued Hospital, Clinic, or Other Facility Administered Medication Ordered Dose Route Frequency Start Date End Date Status vitamin b-12 (Cyanocobalamin) inj 1,000 mcgIndications:Vitamin B12 deficiency 1000 mcg IM [id number] 02/06/2023 01/08/2024 Active documented as of this encounter (statuses as of 09/27/2023) Active Problems Problem Noted Date Diagnosed Date [...] as of this encounter (statuses as of 09/27/2023) Resolved Problems Problem Noted Date Diagnosed Date [...] Taxonomy. Impaired fasting glucose 06/23/200607/2011 LOC PRIM [id number] 04/16/200609/24 LOC PRIM OSTEOARTH-ANKLE 04/16/2006 Sprain of [...] as of this encounter (statuses as of 09/27/2023) Immunizations Name Administration Dates Next Due Pneumococcal [...] as of this encounter Progress Notes * Henna Ann, [facility] - 09/27/2023 8:53 AM EDT Violeta Calvert is a 78 year old female. Objective: Review of patient's allergies indicates: Allergen Reactions Codeine Nausea/vomiting Iodinated Contrast Media Hives Iodine Hives Latex Contact dermititis Macrobid [Nitrofurantoin] Rash Metformin Darvocet [Propoxyphene N-Acetaminophen] Nausea/vomiting Current Outpatient Medications - WARNING: List may be incomplete due to filtering Medication Sig Dispense Refill Dypuqffppur-Vudxtbnpi-Kkdhpv 200-62.5-25 MCG/ACT Aerosol Powder Breath Activated (Trelegy Ellipta) Inhale 1 Puff by mouth daily. 60 Blister Dosing Unit 3 Loteprednol Etabonate 0.5 % Ophthalmic Suspension (Lotemax) Instill 1 Drop into both eyes 2 times aday. Olopatadine HCl 0.1 % Ophthalmic Solution (Pataday) Instill 1 Drop into both eyes in the morning and 1 Drop before bedtime. Trulicity 0.75 MG/0.5ML Subcutaneous Solution Pen-injector (Dulaglutide) Inject 0.75 mg under the skin once a week. (on Mondays) 6 mL 1 ALPRAZolam 0.5 MG Oral Tablet (xaNAX) take 1 tablet in the morning and evening if needed for anxiety 60 Tablet 0 Irbesartan 150 MG Oral Tablet (Avapro) Take [...] tablet in the evening. 225 Tablet 3 Fluticasone Propionate 50 MCG/ACT Nasal Suspension (Flonase) Administer 2 Sprays into each nostril in the morning. 18.2 mL 11 Ondansetron HCl 4 MG Oral Tablet (Zofran) take 1 tablet every 6 hours as needed for nausea. 30 Tablet 2 Sertraline HCl 100 MG Oral Tablet (Zoloft) TAKE 1 - 2 TABLETS BY MOUTH EVERY DAY 200 Tablet 2 Albuterol Sulfate HFA 108 (90 Base) MCG/ACT Inhalation Aerosol Solution Inhale 2 Puffs by mouth every 6 hours as needed for Shortness of Breath or Wheezing. 18 g 5 Ezetimibe 10 MG Oral Tablet (Zetia) TAKE ONE TABLET BY MOUTH IN THE MORNING 90 Tablet 3 Pantoprazole Sodium 20 MG Oral Tablet Delayed Release (Protonix) Take 1 Tablet by mouth in the morning and 1 Tablet in the evening. 180 Tablet 1 Docusate Sodium 100 MG Oral Capsule (Colace) Take 2 Capsules by mouth at bedtime as needed for Constipation. Patient taking daily at bedtime Acetaminophen ER 650 MG Oral Tablet Extended Release Take 1 Tablet by mouth every 8 hours as needed. Rosuvastatin Calcium 10 MG Oral Tablet (Crestor) Take 1 Tablet by mouth in the morning. 90 Tablet 3 hydroCHLOROthiazide 12.5 MG Oral Tablet (Hydrodiuril) TAKE ONE TABLET BY MOUTH IN THE MORNING 90 Tablet 3 Cyanocobalamin 1000 MCG/ML Injection Solution (Cyanocobalamin) Inject as directed 1,000 mcg every 30 days . 1 mL 11 Loratadine 10 MG Oral Capsule Take 1 Capsule by mouth in the morning. Polyethylene Glycol 3350 17 GM/SCOOP Oral Powder Take 17 g by mouth at bedtime as needed for Constipation. Iron-Vitamin C 65-125 MG Oral Tablet Take 1 Tablet by mouth in the morning. 90 Tab 3 ASPIRIN 81 MG PO TABS Take 1 Tablet by mouth in the morning. predniSONE 10 MG Oral Tablet (Deltasone) Take 5 tabs for 2 days, 4 tabs for 2 days, 3 tabs for 2 days, 2 tabs for 2 days 1 tab for 2 days (Patient not taking: Reported on 09/26/2023) 30 Tablet 0 OneTouch UltraSoft Lancets Use once daily to check glucose E11.9 100 Each 5 OneTouch Verio In Vitro Strip (Glucose Blood) Use once daily to check glucose E11.9 100 Strip 5 OneTouch Verio w/Device Kit Use up to 4 times a day E11.9 1 Kit 0 Immunization History Administered Date(s) Administered Pneumococcal Conjugate Vacc, 13 Valent (Prevnar) 10/07/2014 Pneumococcal Polysaccharide PPV23 (Pneumovax) 08/18/2008 Season Influenza, Quad, PF, Adjuvanted, 65+ Yrs, IM (FLUAD) 05/06/2020 Seasonal Influenza Virus Vaccine, Unspecified Formulation 05/20/2001, 04/14/2002, 04/13/2003, 03/28/2004, 04/06/2008, 03/25/2009, 03/25/2010, 03/25/2011, 03/25/2012, 04/21/2013, 04/23/2014, 03/29/2015, 03/22/2016, 03/05/2017, 04/23/2018, 02/26/2019 Seasonal Influenza, PF, 6 M & above, IM , (FluLaval or Fluzone) 04/23/2018 Seasonal Influenza, Quadrivalent Hd (Fluzone Hd) 05/11/2021, 03/05/2023 Seasonal Influenza, Quadrivalent, No Preserve, IM 03/29/2015, 03/22/2016, 03/05/2017 Seasonal Influenza, Split, IIV3, With Preserve, Inj 05/20/2001, 04/14/2002, 04/13/2003, 04/06/2008,03/25/2009, 03/25/2010, 03/25/2011, 03/25/2012, 04/21/2013, 04/23/2014 Seasonal Influenza, Trivalent, Adjuvanted, 65+ yrs 02/26/2019 Seasonal Influenza, Trivalent, High Dose, No Preserve, IM 02/23/2022 TDAP (age 10 and older)(Boostrix) 02/10/2019 TDAP (age 11 and older)(Adacel) 08/29/2007 Vitamin B12 Injection 04/20/2014, 04/27/2014, 05/04/2014, 05/11/2014, 06/08/2014, 07/06/2014, 08/10/2014, 10/07/2014, 12/11/2014, 02/09/2015, 03/29/2015, 04/26/2015, 05/24/2015, 06/28/2015, 09/01/2015, 10/08/2015, 11/15/2015, 12/13/2015, 01/10/2016, 02/14/2016, 03/22/2016, 04/19/2016, 05/24/2016, 06/21/2016, 09/04/2016 Zoster Vaccine Recombinant (Shingrix) 02/25/2021, 06/06/2021 TMR Interventions TMR Needs Drug Therapy - PRAVEEN Monotherapy: ALBUTEROL AER HFA;ALBUTEROL SULFATE HFA,108 (90 Base) M,GM Incomplete Medication Therapy Recommendations No medication therapy recommendations to display Completed Medication Therapy Recommendations Referred for management of medication therapy Current Medication: Albuterol Sulfate HFA 108 (90 Base) MCG/ACT Inhalation Aerosol Solution Rationale: Untreated condition Note: Patient already has albuterol on hand as needed Assessment & Plan Indication, effectiveness, safety and convenience of her medications were reviewed today. The patient's medical conditions were assessed, evaluated, and deemed meeting goals of drug therapy, with thefollowing exceptions. Additional Notes: Pended order to PCP for Trelegy. PCP accepted Trelegy switch. I called patient to educate on inhaler change. Summary Time Spent: 31-45 min Supervising pharmacist who provided the service: Gina Lemus Information Who was the recipient of the CMR service: beneficiary Language Template for the Patient Takeaway: [place] I attest that I have reviewed and updated the patient's conditions, allergies, and medications to the best of my ability. Patient provided medication list gathered by: Tierra Najera RPh 09/27/2023, 8:53 AM documented in this encounter Miscellaneous Notes * MTM To-Do-List - Henna Ann RPh - 09/27/2023 8:46 AM EDT Images from the original note were not included. What we talked about: What I should do: The importance of taking your medication as prescribed Your medicine works best when taken as prescribed. It can be hard to remember to take daily medications. Consider making it a part of your daily routine. Pair taking your medication with something you do every day, like brushing your teeth or eating a meal. Consider setting daily alarms to help remind yourself when it is time to take your medicine. Using a pill box can also help you organize your medicines. Pill boxes allow you to fill each day slot with your daily medicine and help you track when your next dose is due. What we talked about: What I should do: TRELEGY ELLIPTA - Kqrnyvdlzep-Mwhzeyafjgdf-Auujjpftph TRELEGY is your NEW ONCE A DAY daily inhaler.This inhaler replaces your 2 INHALERS called Tiotropium (SPIRIVA) and fluticasone-salmeterol (ADVAIR DISKUS). It works best when taken daily and as prescribed, even if you don't feel it working as soon as you take it. It does not work immediately (or in the moment) like your rescue inhaler ALBUTEROL. You will notice as you take it daily that overtime your breathing should get easier or shouldn't become worst. Your TRELEGY should be taken as 1 puff by mouth ONCE daily. Make sure to SWISH/SPIT with water after each use. If you have any questions about your new inhaler please give me a call at . What we talked about: What I should do: STOP TAKING 2 INHALERS - Tiotropium (SPIRIVA) and fluticasone-salmeterol (ADVAIR DISKUS) Your 2 every day inhalers called Tiotropium (SPIRIVA) and fluticasone- salmeterol (ADVAIR DISKUS) are being replaced with TRELEGY ELLIPTA. Once you start to use TRELEGY, you will STOP using these 2 other inhalers. You can still use your albuterol rescue inhaler as needed for shortness of breath. What we talked about: What I should do: Albuterol rescue inhaler Your ALBUTEROL is your rescue inhaler. This medication can be taken NEEDED, and helps you breathe easier. It starts working immediately. Your rescue inhaler should be taken as: 1 to 2 puffs by mouth every 4 to 6 hours as needed for breathing. If you are needing to use your ALBUTEROL more than 2 days per week, please let your doctor know. This may be a sign that your breathing is not well controlled on your current medications. Also, please check the expiration date of your ALBUTEROL frequently to ensure it is not out-of-date. What we talked about: What I should do: Tylenol maximum daily dose Be mindful of how much Tylenol you take in 24 hours. The maximum dose ofTylenol is 3,000 mg per day (3 grams). Ask your health care provider before taking other Tylenol containing medications. What we talked about: What I should do: Alprazolam Your Alprazolam is your medication to help with your nerves. I explained that this medication can make you feel drowsy or sedated. Do NOT drive a car or drink alcohol while taking this medication. It is also important to NOT stop this medication abruptly. If you are interested in lowering your dose or stopping this medication, discuss this with your doctor first. What we talked about: What I should do: Checking your blood sugar It is important to monitor your blood sugar regularly. Make sure to record your readings in a log and take them with you to your appointments. Providing these readings to your healthcare providers can help them better control your blood sugar. If you are consistently experiencing HIGH blood sugars (over 200 mg/dl) or LOW blood sugars (below 70 mg/dl), it is important to call your doctor's office IMMEDIATELY and NOT wait until your appointment to let them know. Your doctor may want to adjust your medications BEFORE your appointment. Discuss with your doctor before making any changes to any of your medications. What we talked about: What I should do: Signs of high or low blood sugar When your blood sugar is too high or too low your body could experience symptoms. Signs include: dizziness, shakiness, feeling hungry, feeling thirsty, sweatiness, nervousness, irritability, weakness, sleepiness, blurred vision, increased urination, lack of coordination. If you notice any of these signs, it is a great time to check your blood sugar. What we talked about: What I should do: What to do when blood sugar is too low When your blood sugar is 70 mg/dl or below, it is important to increase blood sugar immediately. Low blood sugar could lead to coma and even . When you notice your sugar is low, eat a small snack containing sugar. Some examples include: drink a small amount of orange juice (4 ounces), 4 ounces of regular soda or milk, taking glucose tablets (15 grams), or eat 1 tablespoonful of sugar. Wait 15 minutes, and recheck your blood sugar. If your sugar is still low, try to increase it again by eating a small amount of sugar. Recheck your blood sugar in 15 minutes. If after two attempts to raise it, and your blood sugar is still low-call your doctor immediately. * MTM Personal Medication List - Henna Ann RP - 09/26/2023 2:00 PM EDT Medication How I take it Why I use it Prescriber Acetaminophen ER 650 MG Oral Tablet Extended Release Take 1 Tablet by mouth every 8 hours as needed. Pain Self Albuterol Sulfate HFA 108 (90 Base) MCG/ACT Inhalation Aerosol Solution Inhale 2 Puffs by mouth every 6 hours as needed for Shortness of Breath or Wheezing. Shortness of breath/wheezing Rosemary Valentine MD ALPRAZolam 0.5 MG Oral Tablet (xaNAX) take 1 tablet in the morning and 1 tablet in the evening if needed for anxiety Anxiety Rosemary Valentine MD ASPIRIN 81 MG PO TABS Take 1 Tablet by mouth in the morning. Heart health Self Cyanocobalamin 1000 MCG/ML Injection Solution (Cyanocobalamin) Inject 1,000 mcg under the skin onceevery 30 days as directed. General health Rosemary Valentine MD Docusate Sodium 100 MG Oral Capsule (Colace) Take 2 Capsules by mouth at bedtime as needed for Constipation. Constipation Self Ezetimibe 10 MG Oral Tablet (Zetia) TAKE 1 TABLET BY MOUTH IN THE MORNING High cholesterol Herberth Denny PA-C Fluticasone Propionate 50 MCG/ACT Nasal Suspension (Flonase) Administer 2 Sprays into each nostril in the morning. Allergies Rosemary Valentine MD Kutnzkxsewi-Csqgqoyhe-Tldods 200-62.5-25 MCG/ACT Aerosol Powder Breath Activated (Trelegy Ellipta) Inhale 1 puff by mouth once daily Asthma Rosemary Valentine MD hydroCHLOROthiazide 12.5 MG Oral Tablet (Hydrodiuril) TAKE 1 TABLET BY MOUTH IN THE MORNING High blood pressure Rosemary Valentine MD Irbesartan 150 MG Oral Tablet (Avapro) Take 1 Tablet by mouth in the morning. High blood pressure Rosemary Valentine MD Iron-Vitamin C 65-125 MG Oral Tablet Take 1 Tablet by mouth in the morning. General health Herberth Fleming VIGNESH Denny Levothyroxine Sodium 150 MCG Oral Tablet (Levoxyl) Take 1 Tablet by mouth daily first thing in the morning. (at least 30 min prior to breakfast or other meds) Thyroid Rosemary Valentine MD Loratadine 10 MG Oral Capsule Take 1 Capsule by mouth in the morning. Allergies Self Loteprednol Etabonate 0.5 % Ophthalmic Suspension (Lotemax) Instill 1 Drop into both eyes 2 times aday. Eye condition CHARILE TORRE, PASCUAL Metoprolol Tartrate 50 MG Oral Tablet (Lopressor) take 1 and 1/2 tablets in the morning and 1 tablet in the evening. High blood pressure Rosemary Valentine MD Olopatadine HCl 0.1 % Ophthalmic Solution (Pataday) Instill 1 Drop into both eyes in the morning and 1 Drop before bedtime. Eye condition CHARLIE TORRE, OD Ondansetron HCl 4 MG Oral Tablet (Zofran) take 1 tablet every 6 hours as needed for nausea. Nausea Rosemary Valentine MD Pantoprazole Sodium 20 MG Oral Tablet Delayed Release (Protonix) Take 1 Tablet by mouth in the morning and 1 Tablet in the evening. GERD Rosemary Valentine MD Polyethylene Glycol 3350 17 GM/SCOOP Oral Powder Take 17 g by mouth at bedtime as needed for Constipation. Constipation Self Rosuvastatin Calcium 10 MG Oral Tablet (Crestor) Take 1 Tablet by mouth in the morning. High cholesterol Herberth Denny PA-C Sertraline HCl 100 MG Oral Tablet (Zoloft) TAKE 1 - 2 TABLETS BY MOUTH EVERY DAY as directed Depression/anxiety Rosemary Valentine MD Trulicity 0.75 MG/0.5ML Subcutaneous Solution Pen-injector (Dulaglutide) Inject 0.75 mg under the skin once a week. (on Mondays) Diabetes Rosemary Valentine MD documented in this encounter Plan of Treatment Upcoming Encounters Date Type Department Care Team (Late st Contact Info) Description 10/16/2023 3:00 PM EDT Office Visit Cardiology [address] [place] [address] Herberth Denny PA-C [address] [place] [id number] 12/03/2023 2:00 PM EDT Office Visit Family Medicine [address] [place] [phone] Rosemary Valentine MD [address] [place] [address] [place] [id number] 02/01/2024 3:00 PM EDT Nurse Only Ancillary [address] [place] [address] [place], Nurse Annual Wellness [address] [place] [address] [place] [id number] Health Maintenance Due Date Last Done Comments DXA Scan 01/04/2023 01/05/2020, 01/04/2015 COVID-19 Vaccine ( season) 2023 COLONOSCOPY-EVERY 5 YRS AGES 18-100 04/19/2023 04/19/2018, 04/19/2018, 09/29/2014, Additional history exists CKD PHOS USE SMARTSET 89549 07/03/202302/2023, 05/11/2021, 02/05/2020, Additional history exists GFR 07/22/2023 01/19/2023, 02/2023, 10/03/2021, Additional history exists HbA1c 07/22/2023 01/19/2023, 02/2023, 10/03/2021, Additional history exists Albumin/Creatinine Ratio 08/04/2023 023, 05/11/2021, 07/29/2019, Additional history exists CKD HGB USE SMARTSET 18082 01/20/202401/19, 01/19/2023, 07/03/2022, Additional history exists Depression Screening 01/30/2024 01/29/2023 Diabetic Foot Exam 01/30/2024 01/29/2023, 0 01/23/2022, 12/20/2020, Additional history exists TSH 03/19/2024 03/19/2023, 07/01/2023, 11/27/2022, Additional history exists Diabetic Eye Exam 05/08/2024 05/08/2023, , 05/02/2022, Additional history exists DTaP,Tdap,and Td Vaccines (3 [...] this encounter Medical Devices Implanted Type Area Results Technician Device Identifier Shelf Expiration Date Model / Serial / Lot Lens Intraoc 19.5 - [id number] - [id number] Implanted:Qty: 1 on 03/17/2021 by Migel Dejesus MD at [facility] Left: Eye [employer] 10/22/2025 [id number] / [id number] / [id number] Lens Intraoc 20.0 - [id number] - [id number] Implanted:Qty: 1 on 03/31/2021 by Migel Dejesus MD at OR [facility] Right: Eye [employer] 12/22/2025 [id number] / [id number] / [id number] documented as of this encounter Visit Diagnoses Diagnosis Referred for management of medication therapy- Primary Encounter for long-term (current) use of other medications documented in this encounter Advance Directives Healthcare Agents on File Name Relationship Healthcare Agent Relationshi p Communication Mimi Vieyra Adult Child Health Care Repr esentative (appointed verbally by patient or by statute hierarchy) Yanci Adkins Adult Child Health Care Repr esentative (appointed verbally by patient or by statute hierarchy) Care Teams Ground Wirer Relationship Specialty Start Date End Date Rosemary Valentine MD [address] [place] [address] [place] [phone] PCP - General Family Medicine 09/05/23 documented as of this encounter
--- OUTSIDE RECORDS SUMMARY | 2023-12-02 01:54 | External Medical Summary ---
Author Name Unknown Address Unknown Organization K01:[facility] [place] [address] [facility] [address] Laboratory Report Ordering Provider Test Date Status ANTIONETTE PADILLA 10/09/2023 15:34:48 Final Observation Date Value Abnormality Reference (Units ) Status HbA1C 10/09/2023 15:34:48 6.4 Above high normal 4. 0-5.6 (%) Final The use of HbA1c to monitor glycemic status is based on normal hemoglobin and HbA composition. This test should not be used in patients with abnormal hemoglobin that affects the half life of the red blood cell or the in vivo glycation rates. Glucose, estimated average 10/09/2023 15:34:48 137 Above high normal <126 (mg/dL) Checo galo Performing Location [facility] [place] - [address] [facility] [place] [facility] [address]
--- OUTSIDE RECORDS SUMMARY | 2023-12-02 01:54 | External Medical Summary | Summary of Care ---
Author Name Unknown Organization [facility] Address [address] [place] [address] Phone [phone] Care Team Providers Care Batter Out Name Role Phone Rosemary Valentine MD Primary Care Provide r Encounter Details Date Type Department Care Team (Late st Contact Info) Description 10/04/2023 Orders Only Family Medicine [address] [phone] Rosemary Valentine MD [address] [place] [address] [place] [address] Allergies Active Allergy Reactions Criticality Noted Date Comments Codeine Nausea/vomiting 08/15/2011 Propoxyphene N-Acetaminophen Nausea/vomiting Low 08/24/2008 Iodinated Contrast Media Hives 02/06/2023 Iodine Hives 01/08/2001 Latex 09/26/2012 Contact dermititis Nitrofurantoin Rash 09/07/2014 Metformin 04/12/2021 documented as of this encounter (statuses as of 10/04/2023) Medications Medication Sig Dispensed Refills Start Date [...] 1,000 mcgIndications:Vitamin B12 deficiency 1000 mcg IM [id number] 02/06/2023 01/08/2024 Active documented as of this encounter (statuses as of 10/04/2023) Active Problems Problem Noted Date Diagnosed Date [...] as of this encounter (statuses as of 10/04/2023) Resolved Problems Problem Noted Date Diagnosed Date [...] Taxonomy. Impaired fasting glucose 06/23/200607/2011 LOC PRIM [id number] 04/16/200609/24 08/2007 LOC PRIM OSTEOARTH-ANKLE 04/16/2006 Sprain of ankle [...] as of this encounter (statuses as of 10/04/2023) Immunizations Name Administration Dates Next Due Pneumococcal [...] 10/16/2023 3:00 PM EDT Office Visit Cardiology [address] [place] [address] Herberth Denny PA-C [address] [place] [address] 12/03/2023 2:00 PM EDT Office Visit Family Medicine [address] [place] [phone] Rosemary Valentine MD [address] [place] [address] [place] [address] 02/01/2024 3:00 PM EDT Nurse Only Ancillary [address] [place] [address] [place], Nurse Annual Wellness [address] [place] [address] [place] [address] Health Maintenance Due Date Last Done Comments DXA Scan 01/04/2023 01/05/2020, 01/04/2015 COVID-19 Vaccine ( season) 2023 COLONOSCOPY-EVERY 5 YRS AGES 18-100 04/19/2023 04/19/2018, 04/19/2018, 09/29/2014, Additional history exists CKD PHOS USE SMARTSET 11893 07/03/202302/2023, 05/11/2021, 02/05/2020, Additional history exists GFR 07/22/2023 01/19/2023, 0 02/2023, 10/03/2021, Additional history exists HbA1c 07/22/2023 01/19/2023, 0 02/2023, 10/03/2021, Additional history exists Albumin/Creatinine Ratio 08/04/2023 023, 05/11/2021, 07/29/2019, Additional history exists CKD HGB USE SMARTSET 30267 01/20/202401/19, 01/19/2023, 07/03/2022, Additional history exists Diabetic Foot Exam 01/30/2024 01/29/2023, 0 01/23/2022, 12/20/2020, Additional history exists TSH 03/19/2024 03/19/2023, 12/24, 11/27/2022, Additional history exists Diabetic Eye Exam 10/03/2024 09/28/2023, , 08/15/2022, Additional history exists DTaP,Tdap,and [...] this encounter Medical Devices Implanted Type Area Platform Mill Supervisor Device Identifier Shelf Expiration Date Model / Serial / Lot Lens Intraoc 19.5 - [id number] - [id number] Implanted:Qty: 1 on 03/17/2021 by Migel Dejesus MD at OR [facility] Left: Eye [employer] 10/22/2025 [id number] / [id number] / [id number] Lens Intraoc 20.0 - [id number] - [id number] Implanted:Qty: 1 on 03/31/2021 by Migel Dejesus MD at OR [facility] Right: Eye BAUSCH [employer] LOMB 12/22/2025 [id number] / [id number] / [id number] documented as of this encounter Procedures Procedure Name Priority Date/Time Associated Diagnosis Comments DIABETIC EYE EXAM Routine 09/28/2023 documented in this encounter Results * DIABETIC EYE EXAM (09/28/2023) 09/28/2023 History Per Patient OTHER OUTSIDE LAB (SEE SCANNED REPORT) documented in this encounter Advance Directives Healthcare Agents on File Name Relationship Healthcare Agent Relationshi p Communication Mimi Vieyra Adult Child Health Care Repr esentative (appointed verbally by patient or by statute hierarchy) Yanci Adkins Adult Child Health Care Repr esentative (appointed verbally by patient or by statute hierarchy) Care Teams Batter Out Relationship Specialty Start Date End Date Rosemary Valentine MD [address] [place] [address] [place] [address] PCP - General Family Medicine 09/05/23 documented as of this encounter
--- OUTSIDE RECORDS SUMMARY | 2023-12-02 01:54 | External Medical Summary | Summary of Care ---
Author Name Unknown Organization [facility] Address [address] [place] [address] Phone [phone] Care Team Providers Care Industrial Hire Sales Assistant Name Role Phone Randy Valentine MD Primary Care Provide r Reason for Visit * Reason Onset Date Comments Medication Refill 09/28/2023 Encounter Details Date Type Department Care Team (Late st Contact Info) Description 09/28/2023 Refill Family Medicine [address] [phone] Randy Valentine MD [address] [place], [place] [address] [address] Anxiety Allergies Active Allergy Reactions Criticality Noted Date Comments Codeine Nausea/vomiting 08/15/2011 Propoxyphene N-Acetaminophen Nausea/vomiting Low 08/24/2008 Iodinated Contrast Media Hives 02/06/2023 Iodine Hives 01/08/2001 Latex 09/26/2012 Contact dermititis Nitrofurantoin Rash 09/07/2014 Metformin 04/12/2021 documented as of this encounter (statuses as of 10/01/2023) Medications Medication Sig Dispensed Refills Start Date [...] 100 Strip 5 08/21/2022 Active OneTouch UltraSoft LancetsIndication s:Type 2 diabetes [...] 08/22/2023 Active predniSONE 10 MG Oral Tablet (Deltasone)Indica tions:Moderate persistent asthma with exacerbation,Acut e cough Take 5 tabs for 2 days, 4 tabs for 2 days, 3 tabs for 2 days, 2 tabs for 2 days 1 tab for 2 days 30 Tablet 0 08/28/2023 Active Additional Information Patient not taking.Reported on 09/26/2023 Trulicity 0.75 MG/0.5ML Subcutaneous Solution Pen-injector (Dulaglutide)Danica [...] 2 times a day. 0 06/20/2023 Active Fluticasone-Umecl idin-Vilant 200-62.5-25 MCG/ACT Aerosol Powder Breath Activated (Trelegy Ellipta) Inhale 1 Puff by mouth daily. 60 Blister Dosing Unit 3 09/26/2023 Active ALPRAZolam 0.5 MG Oral Tablet (xaNAX)Indication s:Anxiety take 1 tablet in the morning and evening if needed for anxiety 60 Tablet 0 10/01/2023 Active ALPRAZolam 0.5 MG Oral Tablet (xaNAX)Indication s:Anxiety take 1 tablet in the morning and evening if needed for anxiety 60 Tablet 0 08/30/2023 Discontinue d(Refill) Hospital, Clinic, or Other Facility Administered Medication Ordered Dose Route Frequency Start Date End Date Status vitamin b-12 (Cyanocobalamin) inj 1,000 mcgIndications:Vitamin B12 deficiency 1000 mcg IM [id number] 02/06/2023 01/08/2024 Active documented as of this encounter (statuses as of 10/01/2023) Active Problems Problem Noted Date Diagnosed Date [...] as of this encounter (statuses as of 10/01/2023) Resolved Problems Problem Noted Date Diagnosed Date [...] Taxonomy. Impaired fasting glucose 06/23/200607/2011 LOC PRIM [id number] 04/16/200609/24 LOC PRIM OSTEOARTH-ANKLE 04/16/2006 Sprain of [...] as of this encounter (statuses as of 10/01/2023) Immunizations Name Administration Dates Next Due Pneumococcal [...] Telephone Encounter - Randy Valentine MD - 10/01/2023 10:49 AM EDT Signed Prescriptions: Disp Refills ALPRAZolam 0.5 MG Oral Tablet (xaNAX) 60 Tab*0 Sig: take 1 tablet in the morning and evening if needed for anxiety Authorizing Provider: RANDY VALENTINE * Telephone Encounter - Dory Michel formerly [facility] - 09/29/2023 10:02 AM EDTPending Prescriptions: Disp Refills ALPRAZolam 0.5 MG Oral Tablet (xaNAX) 60 Tab*0 Sig: take 1 tablet in the morning and evening if needed for anxiety * Telephone Encounter - Dory Michel formerly [facility] - 09/29/2023 10:01 AM EDT I have reviewed the patients controlled substance dispensing history in the Prescription Drug Monitoring Program in compliance with the [facility] regulations before prescribing a controlled substance. PDMP checked on 09/29/2023. Pending Prescriptions: Disp Refills ALPRAZolam 0.5 MG Oral Tablet (xaNAX) 60 Tab*0 Sig: take 1 tablet in the morning and evening if needed for anxiety Last Visit: 08/28/2023 (in office), Visit date not found (telemedicine) Next Visit: 12/03/2023 Date medication was last filled: 09/01/23 Date medication is due for refill: 4/ Pharmacy: [facility] [id number] Is this request for a controlled substance? Yes and Urine Drug Screen Not completed Toxicology results: No results found. However, due to the size of the patient record, not all encounters were searched.Please check Results Review for a complete set of results. Please approve if appropriate. Thank You, Dory Michel formerly [facility] Clinical Pharmacist [facility] ([facility]) (formerly Telepharmacy) [phone] 09/29/2023, 10:01 AM * Telephone Encounter - Hyacinth Dietrich [facility] - 09/28/2023 8:36 AM EDT Did you pend patient's preferred pharmacy and medication before forwarding?yes Pharmacy: [facility] [id number] Pending Prescriptions: Disp Refills ALPRAZolam 0.5 MG Oral Tablet (xaNAX) 60 Tab*0 Sig: take 1 tablet in the morning and evening if needed for anxiety Last Visit: 08/28/2023 (in office), Visit date not found (telemedicine) Next Visit: 12/03/2023 If no future appointments scheduled, and last appointment is greater than a year ago, please schedule patient for a follow-up appointment Last date the medication was ordered: 08/30/23 Is this request for a controlled substance?Yes, What was the last refill date 08/30/23 w/ quantity 60and dosage 0.5 MG and Urine Drug Screen Not completed Urine Drug Screen:No results found. However, due to the size of the patient record, not all encounters were searched. Please check Results Review for a complete set of results. Patient Phone Numbers Labs: Lab Results Component Value Date/Time CREAT 1.0 01/19/2023 02:48 PM CREAT 1.0 02/05/2020 03:05 PM CREAT 0.6 (L) 07/15/1996 09:33 AM POTASSIUM 4.0 01/19/2023 02:48 PM POTASSIUM 4.7 02/05/2020 03:05 PM POTASSIUM 4.1 07/15/1996 09:33 AM TSH 8.05 (H) 03/19/2023 03:13 PM TSH 1.00 02/05/2020 03:05 PM TSH 20.94 (H) 07/15/1996 09:33 AM LDLCALC 62 11/27/2022 02:49 PM LDLCALC 104 07/29/2019 04:37 PM LDLCALC 172. (HH) 07/15/1996 09:33 AM LDLDIRECT 106 01/24/2022 03:36 PM LDLDIRECT NOT APPLICABLE 07/29/2019 04:37 PM LDLDIRECT 219 (H) 05/13/2007 01:20 PM ALT 27 01/19/2023 02:48 PM ALT 19 02/05/2020 03:05 PM HGBA1C 6.8 (H) 01/19/2023 02:48 PM HGBA1C 6.8 (H) 02/05/2020 03:05 PM documented in this encounter Plan of Treatment Upcoming Encounters Date Type Department Care Team (Late st Contact Info) Description 10/16/2023 3:00 PM EDT Office Visit Cardiology [address] [place] [address] Herberth Denny PA-C [address] [place] [address] 12/03/2023 2:00 PM EDT Office Visit Family Medicine [address] [place] [phone] Randy Valentine MD [address] [place] [address] [place] [address] 02/01/2024 3:00 PM EDT Nurse Only Ancillary [address] [place] [address] K[place], Nurse [address] [place] [address] Health Maintenance Due Date Last Done Comments DXA Scan 01/04/2023 01/05/2020, 01/04/2015 COVID-19 Vaccine ( season) 2023 COLONOSCOPY-EVERY 5 YRS AGES 18-100 04/19/2023 04/19/2018, 04/19/2018, 09/29/2014, Additional history exists CKD PHOS USE SMARTSET 56588 07/03/20230 02/2023, 05/11/2021, 02/05/2020, Additional history exists GFR 07/22/2023 01/19/2023, 0 02/2023, 10/03/2021, Additional history exists HbA1c 07/22/2023 01/19/2023, 02/2023, 10/03/2021, Additional history exists Albumin/Creatinine Ratio 08/04/2023 023, 05/11/2021, 07/29/2019, Additional history exists CKD HGB USE SMARTSET 07904 01/20/202401/19, 01/19/2023, 07/03/2022, Additional history exists Depression [...] this encounter Medical Devices Implanted Type Area Dedicated Driver Device Identifier Shelf Expiration Date Model / Serial / Lot Lens Intraoc 19.5 - [id number] - [id number] Implanted:Qty: 1 on 03/17/2021 by Migel Dejesus MD at OR [facility] Left: Eye [employer]OM[employer] 10/22/2025 [id number] / [id number] / [id number] Lens Intraoc 20.0 - [id number] - [id number] Implanted:Qty: 1 on 03/31/2021 by Migel Dejesus MD at OR [facility] Right: Eye BA[employer]CH [employer] LOMB 12/22/2025 [id number] / [id number] / [id number] documented as of this encounter Visit Diagnoses Diagnosis Anxiety Anxiety state, unspecified documented in this encounter Advance Directives Healthcare Agents on File Name Relationship Healthcare Agent Relationshi p Communication Mimi Vieyra Adult Child Health Care Repr esentative (appointed verbally by patient or by statute hierarchy) Yanci Adkins Adult Child Health Care Repr esentative (appointed verbally by patient or by statute hierarchy) Care Teams Industrial Hire Sales Assistant Relationship Specialty Start Date End Date Randy Valentine MD [address] [place] [address] [place] [phone] PCP - General Family Medicine 09/05/23 documented as of this encounter
--- OUTSIDE RECORDS SUMMARY | 2023-12-02 01:54 | External Medical Summary | Summary of Care ---
Author Name Unknown Organization [facility] Address [address] [place] [address] Phone [phone] Care Team Providers Care Adzing And Boring Machine Operator Name Role Phone Rosemary Valentine MD Primary Care Provide r Reason for Visit * Reason Onset Date Comments FYI 09/21/2023 case management 09/21/2023 Encounter Details Date Type Department Care Team (Late st Contact Info) Description 09/21/2023 Telephone Care Coordination and Integration [address] [place] [address] Hilary Rollins RN [address] [place] [address] FYI; case management Allergies Active Allergy Reactions Criticality Noted Date Comments Codeine Nausea/vomiting 08/15/2011 Propoxyphene N-Acetaminophen Nausea/vomiting Low 08/24/2008 Iodinated Contrast Media Hives 02/06/2023 Iodine Hives 01/08/2001 Latex 09/26/2012 Contact dermititis Nitrofurantoin Rash 09/07/2014 Metformin 04/12/2021 documented as of this encounter (statuses as of 10/08/2023) Medications Medication Sig Dispensed Refills Start Date [...] glucose E11.9 100 Strip 5 08/21/2022 Active TVbeatTouch UltraSoft LancetsIndications: Type 2 diabetes mellitus with [...] 08/22/2023 Active predniSONE 10 MG Oral Tablet (Deltasone)Indicati ons:Moderate persistent asthma with exacerbation,Acute cough Take 5 tabs for 2 days, 4 tabs for 2 days, 3 tabs for 2 days, 2 tabs for 2 days 1 tab for 2 days 30 Tablet 0 08/28/2023 Active Additional Information Patient not taking.Reported on 09/26/2023 Hospital, Clinic, or Other Facility Administered Medication Ordered Dose Route Frequency Start Date End Date Status vitamin b-12 (Cyanocobalamin) inj 1,000 mcgIndications:Vitamin B12 deficiency 1000 mcg IM [id number] 02/06/2023 01/08/2024 Active documented as of this encounter (statuses as of 10/08/2023) Active Problems Problem Noted Date Diagnosed Date [...] as of this encounter (statuses as of 10/08/2023) Resolved Problems Problem Noted Date Diagnosed Date [...] Taxonomy. Impaired fasting glucose 06/23/200607/2011 LOC PRIM [id number] 04/16/200609/24 LOC PRIM OSTEOARTH-ANKLE 04/16/2006 Sprain of [...] as of this encounter (statuses as of 10/08/2023) Immunizations Name Administration Dates Next Due Pneumococcal [...] Telephone Encounter - Hilary Rollins RN - 09/21/2023 10:25 AM EDT Rasheeda, We put patient on your schedule for Sunday afternoon, at 4 PM, as Dr Valentine said she needed to be seen. On 08/24/23 - patient reported flu/sinus infection symptoms x 1 week. Was ordered amoxicillin x 10 days. On 08/27/13 - patient came in and saw Dr Agarwal. He reports "likely flu". Still on the antibiotics, he added prednisone - due to having asthma. On 09/07/23 - ongoing symptoms. Chest xray was clear. Mucus yellow. Increased weakness. Ordered azithromycin x 5 days. On 09/14/23 - reporting urinary symptoms. Culture showed UTI. Ordered Bactrim DS x 5 days. UTI symptoms have resolved since then. On 09/20/23 - patient reports continued head and chest respiratory symptoms. Nasal drainage and expectoration both reported as "greenish". Headache all the time. Upset stomach. Dr Valentine wants her to come in and be seen again. So in the past month - patient has had 3 different antibiotics + prednisone, and continues with respiratory symptoms. She will be seeing you on Sunday. Thank you. documented in this encounter Plan of Treatment Upcoming Encounters Date Type Department Care Team (Late st Contact Info) Description 10/16/2023 3:00 PM EDT Office Visit Cardiology [address] [place] [address] Herberth Denny PA-C [address] [place] [address] 12/03/2023 2:00 PM EDT Office Visit Family Medicine [address] [place] [phone] Rosemary Valentine MD [address] [place] [address] [place] [address] 02/01/2024 3:00 PM EDT Nurse Only Ancillary [address] [place] [address] [place], Nurse Annual Wellness [address] [place] [address] [place] [address] Health Maintenance Due Date Last Done Comments DXA Scan 01/04/2023 01/05/2020, 01/04/2015 COVID-19 Vaccine ( season) 2023 COLONOSCOPY-EVERY 5 YRS AGES 18-100 04/19/2023 04/19/2018, 04/19/2018, 09/29/2014, Additional history exists CKD PHOS USE SMARTSET 63229 07/03/202302/2023, 05/11/2021, 02/05/2020, Additional history exists GFR 07/22/2023 01/19/2023, 02/2023, 10/03/2021, Additional history exists HbA1c 07/22/2023 01/19/2023, 02/2023, 10/03/2021, Additional history exists Albumin/Creatinine Ratio 08/04/2023 023, 05/11/2021, 07/29/2019, Additional history exists CKD HGB USE SMARTSET 38351 01/20/202401/19, 01/19/2023, 07/03/2022, Additional history exists Diabetic [...] this encounter Medical Devices Implanted Type Area Quality Assurance Coach Device Identifier Shelf Expiration Date Model / Serial / Lot Lens Intraoc 19.5 - [id number] - [id number] Implanted:Qty: 1 on 03/17/2021 by Migel Dejesus MD at OR [facility] Left: Eye [employer]CH [employer] LOMB 10/22/2025 [id number] / [id number] / [id number] Lens Intraoc 20.0 - [id number] - [id number] Implanted:Qty: 1 on 03/31/2021 by Migel Dejesus MD at OR [facility] Right: Eye BAUSCH & LOMB 12/22/2025 [id number] / [id number] / [id number] documented as of this encounter Visit Diagnoses Diagnosis Need for case management follow-up- Primary documented in this encounter Advance Directives Healthcare Agents on File Name Relationship Healthcare Agent Relationshi p Communication Mimi Vieyra Adult Child Health Care Repr esentative (appointed verbally by patient or by statute hierarchy) Yanci Adkins Adult Child Health Care Repr esentative (appointed verbally by patient or by statute hierarchy) Care Teams Adzing And Boring Machine Operator Relationship Specialty Start Date End Date Rosemary Valentine MD [address] [place] [address] [place] [address] PCP - General Family Medicine 09/05/23 documented as of this encounter
--- OUTSIDE RECORDS SUMMARY | 2023-12-02 01:54 | External Medical Summary | Summary of Care ---
Author Name Unknown Organization [facility] Address [address] [place] [address] Phone [phone] Care Team Providers Care Content Analyst Name Role Phone Rosemary Valentine MD Primary Care Provide r Reason for Visit * Reason Onset Date Comments Advice 06/29/2023 Covid exposures Encounter Details Date Type Department Care Team (Late st Contact Info) Description 06/29/2023 Telephone Family Medicine [address] [phone] Rosemary Valentine MD [address] [place] [address] [place] [address] Advice (Covid exposures) Allergies Active Allergy Reactions Criticality Noted Date Comments Codeine Nausea/vomiting 08/15/2011 Propoxyphene N-Acetaminophen Nausea/vomiting Low 08/24/2008 Iodinated Contrast Media Hives 02/06/2023 Iodine Hives 01/08/2001 Latex 09/26/2012 Contact dermititis Nitrofurantoin Rash 09/07/2014 Metformin 04/12/2021 documented as of this encounter (statuses as of 09/28/2023) Medications Medication Sig Dispensed Refills Start Date End Date Status ASPIRIN 81 MG PO TABSIndications:hear t Take 1 Tablet by mouth in the morning. 0 Active Iron-Vitamin C 65-125 MG Oral Tablet Take 1 Tablet by mouth in the morning. 90 Tab 3 01/25/2016 Active Polyethylene Glycol 3350 17 GM/SCOOP Oral PowderIndications:co nstipation Take 17 g by mouth at bedtime as needed for Constipation. 0 Active Loratadine 10 MG Oral CapsuleIndications:a llergies Take 1 Capsule by mouth in the [...] Active OneTouch Verio In Vitro Strip (Glucose Blood)Indications:Ty pe 2 diabetes mellitus with stage 3a chronic kidney disease, without long-term current use of insulin (HCC) Use once daily to check glucose E11.9 100 Strip 5 08/21/2022 Active GaniparaTouch UltraSoft LancetsIndications:T ype 2 diabetes mellitus with stage 3a chronic kidney disease, without long-term current use of insulin (HCC) Use once daily to check glucose E11.9 100 Each 5 08/21/2022 Active Rosuvastatin Calcium 10 MG Oral Tablet (Crestor)Indications :Dyslipidemia, goal LDL below 100 Take 1 Tablet [...] Sodium 20 MG Oral Tablet Delayed Release (Protonix)Indication s:Gastroesophageal reflux disease with esophagitis without hemorrhage Take 1 Tablet by mouth in the morning and 1 Tablet in the evening. 180 Tablet 1 01/19/2023 Active Ezetimibe 10 MG Oral Tablet (Zetia)Indications:D yslipidemia, goal LDL below 70 TAKE ONE TABLET BY MOUTH IN THE MORNING 90 Tablet 3 03/05/2023 Active Albuterol Sulfate HFA 108 (90 Base) MCG/ACT Inhalation Aerosol SolutionIndications: Intermittent asthma with reliever use up to twice per week without complication,SOB (shortness of breath) Inhale 2 Puffs by mouth every 6 hours as needed for Shortness of Breath or Wheezing. 18 g 5 06/07/2023 Active Hospital, Clinic, or Other Facility Administered Medication Ordered Dose Route Frequency Start Date End Date Status vitamin b-12 (Cyanocobalamin) inj 1,000 mcgIndications:Vitamin B12 deficiency 1000 mcg IM [id number] 02/06/2023 01/08/2024 Active documented as of this encounter (statuses as of 09/28/2023) Active Problems Problem Noted Date Diagnosed Date [...] as of this encounter (statuses as of 09/28/2023) Resolved Problems Problem Noted Date Diagnosed Date [...] Taxonomy. Impaired fasting glucose 06/23/200607/2011 LOC PRIM [id number] 04/16/200609/24 LOC PRIM OSTEOARTH-ANKLE 04/16/2006 Sprain of [...] as of this encounter (statuses as of 09/28/2023) Immunizations Name Administration Dates Next Due Pneumococcal [...] encounter Miscellaneous Notes * Telephone Encounter - Rosemary Valentine MD - 06/29/2023 2:16 PM EST If she was not exposed to her niece and not having symptoms, I don't know that she needs to test but if she is traveling, I am fine with her doing so before her trip. * Telephone Encounter - Yogi Santo OSA - 06/29/2023 12:16 PM EST Niece tested positive for covid, but patient has not been around her. Patient has no symptoms. Getting tested today. Patient visiting sisters this weekend. Asks if she should. I say base decision on test result... ifpositive, should quarantine; if negative should be able to go without worry. If time, patient would like a nurse to contact her regarding safety of seeing others. Have you had symptoms of COVID-19 such as fever, sore throat, shortness of breath? No Date of first symptoms: none Date of last fever: none Date of last symptoms: none Have you had close exposure to someone who tested positive for COVID-19? No Date of first exposure: none Date of last exposure: none Testing location requested: no documented in this encounter Plan of Treatment Upcoming Encounters Date Type Department Care Team (Late st Contact Info) Description 10/16/2023 3:00 PM EDT Office Visit Cardiology [address] [place] [address] Herberth Denny PA-C [address] [place] [address] 12/03/2023 2:00 PM EDT Office Visit Family Medicine [address] [place] [phone] Rosemary Valentine MD [address] [place] [address] [place] [address] 02/01/2024 3:00 PM EDT Nurse Only Ancillary [address] [place] [address] Kateryna Nurse Annual Wellness [address] [place] [address] [place] [address] Health Maintenance Due Date Last Done Comments DXA Scan 01/04/2023 01/05/2020, 01/04/2015 COVID-19 Vaccine ( season) 2023 COLONOSCOPY-EVERY 5 YRS AGES 18-100 04/19/2023 04/19/2018, 04/19/2018, 09/29/2014, Additional history exists CKD PHOS USE SMARTSET 04291 07/03/20230 02/2023, 05/11/2021, 02/05/2020, Additional history exists GFR 07/22/2023 01/19/2023, 0 02/2023, 10/03/2021, Additional history exists HbA1c 07/22/2023 01/19/2023, 0 02/2023, 10/03/2021, Additional history exists Albumin/Creatinine Ratio 08/04/2023 023, 05/11/2021, 07/29/2019, Additional history exists CKD HGB USE SMARTSET 62973 01/20/202401/19, 01/19/2023, 07/03/2022, Additional history exists Depression [...] this encounter Medical Devices Implanted Type Area Music Specialist Device Identifier Shelf Expiration Date Model / Serial / Lot Lens Intraoc 19.5 - [id number] - [id number] Implanted:Qty: 1 on 03/17/2021 by Migel Dejesus MD at OR [facility] Left: Eye [employer] 10/22/2025 [id number] / [id number] / [id number] Lens Intraoc 20.0 - [id number] - [id number] Implanted:Qty: 1 on 03/31/2021 by Migel Dejesus MD at OR [facility] Right: Eye [employer]OM[employer] 12/22/2025 [id number] / [id number] / [id number] documented as of this encounter Advance Directives Healthcare Agents on File Name Relationship Healthcare Agent Relationshi p Communication Mimi Vieyra Adult Child Health Care Repr esentative (appointed verbally by patient or by statute hierarchy) Yanci Adkins Adult Child Health Care Repr esentative (appointed verbally by patient or by statute hierarchy) Care Teams Content Analyst Relationship Specialty Start Date End Date Rosemary Valentine MD [address] [place] [address] [place] [phone] PCP - General Family Medicine 09/05/23 documented as of this encounter
--- OUTSIDE RECORDS SUMMARY | 2023-12-02 01:54 | External Medical Summary | Summary of Care ---
Author Name Unknown Organization [facility] Address [address] [place] [address] Phone [phone] Care Team Providers Care Waredresser Name Role Phone Rosemary Valentine MD Primary Care Provide r Reason for Visit * Reason Onset Date Comments Health Maintenance 09/26/2023 Encounter Details Date Type Department Care Team (Late st Contact Info) Description 09/26/2023 Telephone Family Medicine [address] [phone] Rosemary Valentine MD [address] [place], [place] [address] [address] Health Maintenance Allergies Active Allergy Reactions Criticality Noted Date Comments Codeine Nausea/vomiting 08/15/2011 Propoxyphene N-Acetaminophen Nausea/vomiting Low 08/24/2008 Iodinated Contrast Media Hives 02/06/2023 Iodine Hives 01/08/2001 Latex 09/26/2012 Contact dermititis Nitrofurantoin Rash 09/07/2014 Metformin 04/12/2021 documented as of this encounter (statuses as of 09/26/2023) Medications Medication Sig Dispensed Refills Start Date End Date Status ASPIRIN 81 MG PO TABSIndications:hear t Take by mouth daily. 0 Active Iron-Vitamin C 65-125 MG Oral [...] glucose E11.9 100 Strip 5 08/21/2022 Active DogeoTouch UltraSoft LancetsIndications:T ype 2 diabetes mellitus with [...] every 8 hours as needed. 0 Active Fluticasone-Salmeter ol 250-50 MCG/ACT Inhalation Aerosol Powder Breath Activated (Advair Diskus) Inhale 1 Puff by mouth in the morning and 1 Puff before bedtime. 180 Each 1 11/10/2022 Active Docusate Sodium 100 MG Oral Capsule (Colace) Take 1 Capsule by mouth 2 times a day as needed for Constipation. Patient taking daily [...] THE MORNING 90 Tablet 3 03/05/2023 Active Tiotropium [place] Monohydrate 18 MCG Inhalation Capsule (Spiriva)Indications :Moderate persistent asthma without complication Inhale 1 Capsule by mouth in the morning. For inhaler only, do not swallow.. 30 Capsule 12 05/14/2023 Active Albuterol Sulfate HFA 108 (90 Base) MCG/ACT Inhalation Aerosol SolutionIndications: Intermittent asthma with reliever use up to twice per week without complication,SOB (shortness of breath) Inhale 2 Puffs by mouth every 6 hours as needed for Shortness of Breath or Wheezing. 18 g 5 06/07/2023 Active Sertraline HCl 100 MG Oral Tablet (Zoloft)Indications: Anxiety, generalized,Current moderate episode of major depressive disorder without prior episode (HCC) TAKE 1 - 2 TABLETS BY MOUTH EVERY DAY 200 Tablet 2 07/28/2023 Active Ondansetron HCl 4 MG Oral Tablet (Zofran)Indications: Nausea without vomiting take 1 tablet every 6 hours as needed for nausea. 30 Tablet 2 07/28/2023 Active Fluticasone Propionate 50 MCG/ACT Nasal Suspension (Flonase)Indications :Seasonal allergic rhinitis due to pollen Administer 2 [...] 08/22/2023 Active predniSONE 10 MG Oral Tablet (Deltasone)Indicatio ns:Moderate persistent asthma with exacerbation,Acute cough Take 5 tabs for 2 days, 4 tabs for 2 days, 3 tabs for 2 days, 2 tabs for 2 days 1 tab for 2 days 30 Tablet 0 08/28/2023 Active ALPRAZolam 0.5 MG Oral Tablet (xaNAX)Indications:A nxiety take 1 tablet in the morning and evening if needed for anxiety 60 Tablet 0 08/30/2023 Active Trulicity 0.75 MG/0.5ML Subcutaneous Solution Pen-injector (Dulaglutide)Indicat ions:Type 2 diabetes mellitus with stage 3a chronic kidney disease, without long-term current use of insulin (HCC) Inject 0.75 mg under the skin once a week. (on Mondays) 6 mL 1 09/25/2023 Active Hospital, Clinic, or Other Facility Administered Medication Ordered Dose Route Frequency Start Date End Date Status vitamin b-12 (Cyanocobalamin) inj 1,000 mcgIndications:Vitamin B12 deficiency 1000 mcg IM [id number] 02/06/2023 01/08/2024 Active documented as of this encounter (statuses as of 09/26/2023) Active Problems Problem Noted Date Diagnosed Date [...] as of this encounter (statuses as of 09/26/2023) Resolved Problems Problem Noted Date Diagnosed Date [...] Taxonomy. Impaired fasting glucose 06/23/200607/2011 LOC PRIM [id number] 04/16/200609/24 LOC PRIM OSTEOARTH-ANKLE 04/16/2006 Sprain of [...] as of this encounter (statuses as of 09/26/2023) Immunizations Name Administration Dates Next Due Pneumococcal [...] encounter Miscellaneous Notes * Telephone Encounter - Amor GonzalezPERRY harvey - 09/26/2023 8:44 AM EDT Care Gaps Comprehensive Care Outreach Last Office/Telemedicine Visit: 08/28/2023 (in office), Visit date not found (telemedicine) Next Office Visit: 12/03/2023 Hemoglobin AIC Results: Lab Results Component Value Date/Time HEMOGLOBIN A1C - [facility] 6.8 (H) 01/19/2023 02:48 PM HEMOGLOBIN A1C - [facility] 6.7 (H) 07/03/2022 03:01 PM HEMOGLOBIN A1C - [facility] 7.6 (H) 10/03/2021 12:48 PM HEMOGLOBIN A1C - [facility] 6.8 (H) 02/05/2020 03:05 PM HEMOGLOBIN A1C - [facility] 6.4 (H) 07/29/2019 04:37 PM HEMOGLOBIN A1C - [facility] 7.1 (H) 02/04/2019 04:53 PM BP Readings from Last 1 Encounters: 08/28/23 186/80 Reviewed Health Maintenance below: Health Maintenance Topic Date Due DXA Scan 01/04/2023 COVID-19 Vaccine ( season) Never done COLONOSCOPY-EVERY 5 YRS AGES 18-100 04/19/2023 CKD PHOS USE SMARTSET 19053 07/03/2023 HbA1c 07/22/2023 GFR 07/22/2023 Albumin/Creatinine Ratio 08/04/2023 Labs ordered will walk in Colon defer to pcp due to age Care Gap Outreach Action Taken: Spoke to patient documented in this encounter Plan of Treatment Upcoming Encounters Date Type Department Care Team (Late st Contact Info) Description 09/26/2023 1:30 PM EDT Medication Management Unruly Escobedo [facility] [address] [place] [address] Pharmacist, Unruly Escobedo [address] [address] 10/16/2023 3:00 PM EDT Office Visit Cardiology [address] [place] [address] Herberth Denny PA-C [address] [place] [address] 12/03/2023 2:00 PM EDT Office Visit Family Medicine [address] [place] [phone] Rosemary Valentine MD [address] [place] [address] [place] [address] 02/01/2024 3:00 PM EDT Nurse Only Ancillary [address] [place] [address] [place], Nurse Annual [address] [place] [address] Scheduled Orders Name Type Priority Associated Diagnoses Orde r Schedule HEMOGLOBIN A1C Lab Routine Type 2 diabetes mellitus with stage 3a chronic kidney disease, without long-term current use of insulin (HCC) Expected: 09/26/2023, Expires: 09/25/2024 ALBUMIN / CREATININE RATIO, URINE Lab Routine Screening for nephropathy Expected: 09/26/2023, Expires: 09/25/2024 PHOSPHORUS Lab Routine Chronic kidney disease, unspecified CKD stage Expected: 09/26/2023, Expires: 09/25/2024 COMPREHENSIVE METABOLIC PANEL Lab Routine Chronic kidney disease, unspecified CKD stage Expected: 09/26/2023, Expires: 09/25/2024 Health Maintenance Due Date Last Done Comments DXA Scan 01/04/2023 01/05/2020, 01/04/2015 COVID-19 Vaccine ( season) 2023 COLONOSCOPY-EVERY 5 YRS AGES 18-100 04/19/2023 04/19/2018, 04/19/2018, 09/29/2014, Additional history exists CKD PHOS USE SMARTSET 24524 07/03/20230 02/2023, 05/11/2021, 02/05/2020, Additional history exists GFR 07/22/2023 01/19/2023, 0 02/2023, 10/03/2021, Additional history exists HbA1c 07/22/2023 01/19/2023, 0 02/2023, 10/03/2021, Additional history exists Albumin/Creatinine Ratio 08/04/2023 023, 05/11/2021, 07/29/2019, Additional history exists CKD HGB USE SMARTSET 04106 01/20/202401/19, 01/19/2023, 07/03/2022, Additional history exists Depression [...] this encounter Medical Devices Implanted Type Area Adjunct Faculty Device Identifier Shelf Expiration Date Model / Serial / Lot Lens Intraoc 19.5 - [id number] - [id number] Implanted:Qty: 1 on 03/17/2021 by Migel Dejesus MD at OR [facility] Left: Eye [employer] 10/22/2025 [id number] / [id number] / [id number] Lens Intraoc 20.0 - [id number] - [id number] Implanted:Qty: 1 on 03/31/2021 by Migel Dejesus MD at OR [facility] Right: Eye [employer]CH [employer] LOMB 12/22/2025 [id number] / [id number] / [id number] documented as of this encounter Visit Diagnoses Diagnosis Diabetes mellitus screening- Primary Screening for diabetes mellitus Screening for nephropathy Chronic kidney disease, unspecified CKD stage Type 2 diabetes mellitus with stage 3a [...] patient or by statute hierarchy) Care Teams Waredresser Relationship Specialty Start Date End Date Rosemary Valentine MD [address] [place] [address] [place] [phone] PCP - General Family Medicine 09/05/23 documented as of this encounter
--- OUTSIDE RECORDS SUMMARY | 2023-12-02 01:54 | External Medical Summary ---
Author Name Unknown Address Unknown Organization K01:[facility] [address] [place] [address] Laboratory Report Ordering Provider Test Date Status ANTIONETTE PADILLA 10/09/2023 15:34:48 Final Observation Date Value Abnormality Reference (Units ) Status Phosphate 10/09/2023 15:34:48 3.6 2.5-4.8 (m g/dL) Final Performing Location [facility] - [address] [place] [address]
--- OUTSIDE RECORDS SUMMARY | 2023-12-02 01:54 | External Medical Summary | Summary of Care ---
Author Name Unknown Organization [facility] Address [address] [place] [address] Phone [phone] Care Team Providers Care Sample Grader Name Role Phone Rosemary Valentine MD Primary Care Provide r Reason for Visit * Reason Onset Date Comments Appointment 09/25/2023 Encounter Details Date Type Department Care Team (Late st Contact Info) Description 09/25/2023 Telephone Family Medicine [address] [address] Rosemary Valentine MD [address] [place], [place] [address] [address] Appointment Allergies Active Allergy Reactions Criticality Noted [...] glucose E11.9 100 Strip 5 08/21/2022 Active QuickGiftsTouch UltraSoft LancetsIndications: Type 2 diabetes mellitus with [...] on 09/26/2023 ALPRAZolam 0.5 MG Oral Tablet (xaNAX)Indications: Anxiety take 1 tablet in the morning and evening if needed for anxiety 60 Tablet 0 08/30/2023 Active Hospital, Clinic, or Other Facility Administered Medication Ordered Dose Route Frequency Start Date End Date Status vitamin b-12 (Cyanocobalamin) inj 1,000 mcgIndications:Vitamin B12 deficiency 1000 mcg IM [id number] 02/06/2023 01/08/2024 Active documented as of this [...] Taxonomy. Impaired fasting glucose 06/23/200607/2011 LOC PRIM [id number] 04/16/200609/24 LOC PRIM OSTEOARTH-ANKLE 04/16/2006 Sprain of [...] encounter Miscellaneous Notes * Telephone Encounter - Hyacinth Woody OSA - 09/26/2023 4:04 PM EDT Sent * Telephone Encounter - Iza Weaver OSA - 09/25/2023 10:29 AM EDT Patient asking for a printout of all her upcoming appointments to be mailed to her home address documented in this encounter Plan of Treatment Upcoming Encounters Date Type Department Care Team (Late st Contact Info) Description 10/16/2023 3:00 PM EDT Office Visit Cardiology [address] [place] [address] Herberth Denny PA-C [address] [facility] [place] [address] 12/03/2023 2:00 PM EDT Office Visit Family Medicine [address] [place] [phone] Rosemary Valentine MD [address] [place] [address] [place] [address] 02/01/2024 3:00 PM EDT Nurse Only Ancillary [address] [place] [address] [place], Nurse Annual Wellness [address] [place] [address] [place] [address] Health Maintenance Due Date Last Done Comments DXA Scan 01/04/2023 01/05/2020, 01/04/2015 COVID-19 Vaccine ( season) 2023 COLONOSCOPY-EVERY 5 YRS AGES 18-100 04/19/2023 04/19/2018, 04/19/2018, 09/29/2014, Additional history exists CKD PHOS USE SMARTSET 81941 07/03/20230 02/2023, 05/11/2021, 02/05/2020, Additional history exists GFR 07/22/2023 01/19/2023, 0 02/2023, 10/03/2021, Additional history exists HbA1c 07/22/2023 01/19/2023, 0 02/2023, 10/03/2021, Additional history exists Albumin/Creatinine Ratio 08/04/2023 023, 05/11/2021, 07/29/2019, Additional history exists CKD HGB USE SMARTSET 17416 01/20/202401/19, 01/19/2023, 07/03/2022, Additional history exists Depression Screening 01/30/2024 01/29/2023 Diabetic Foot Exam 01/30/2024 01/29/2023, 0 01/23/2022, 12/20/2020, Additional history exists TSH 03/19/2024 03/19/2023, 07/2 01/2023, 11/27/2022, Additional history exists Diabetic Eye Exam [...] this encounter Medical Devices Implanted Type Area Lathe Machinist Device Identifier Shelf Expiration Date Model / Serial / Lot Lens Intraoc 19.5 - [id number] - [id number] Implanted:Qty: 1 on 03/17/2021 by Migel Dejesus MD at OR [facility] Left: Eye [employer] 10/22/2025 [id number] / [id number] / [id number] Lens Intraoc 20.0 - [id number] - [id number] Implanted:Qty: 1 on 03/31/2021 by Migel Dejesus MD at OR [facility] Right: Eye BA[employer]CH [employer] LOMB 12/22/2025 [id number] / [id number] / [id number] documented as of this encounter Advance Directives Healthcare Agents on File Name Relationship Healthcare Agent Relationshi p Communication Mimi Vieyra Adult Child Health Care Repr esentative (appointed verbally by patient or by statute hierarchy) [phone] ([place]) Yanci Adkins Adult Child Health Care Repr esentative (appointed verbally by patient or by statute hierarchy) Care Teams Sample Grader Relationship Specialty Start Date End Date Rosemary Valentine MD [address] [place] [address] [place] [phone] PCP - General Family Medicine 09/05/23 documented as of this encounter
--- OUTSIDE RECORDS SUMMARY | 2023-12-02 01:54 | External Medical Summary ---
Author Name Unknown Address Unknown Organization K01:[facility] [place] [address] [facility] [place] [address] Laboratory Report Ordering Provider Test Date Status ANTIONETTE PADILLA 10/09/2023 15:34:48 Final Observation Date Value Abnormality Reference (Units ) Status BUN 10/09/2023 15:34:48 19 6-20 (mg/dL) Final Creatinine 10/09/2023 15:34:48 1.0 0.5-1.0 (mg/dL) Final Glomerular filtration rate/1.73 sq M.predicted [Volume Rate/Area] in Serum, Plasma or Blood by Creatinine-based formula (CKD-EPI) 10/09/2023 15:34:48 58 Below low normal >=60 (mL/min) Final eGFR is calculated based on the CKD-EPI 2020 equation Sodium 10/09/2023 15:34:48 139 135-146 (m mol/L) Final Potassium 10/09/2023 15:34:48 4.0 3.5-5.1 (m mol/L) Final Cl 10/09/2023 15:34:48 103 98-107 (mm ol/L) Final CO2 10/09/2023 15:34:48 24 22-32 (mmo l/L) Final Anion gap 10/09/2023 15:34:48 12 7-15 (mmol /L) Final Glucose 10/09/2023 15:34:48 136 Above high normal 70 -120 (mg/dL) Final Albumin 10/09/2023 15:34:48 4.2 3.8-5.0 (g /dL) Final AST (Aspartate aminotransferase) 10/09/2023 15:34:48 14 10-35 (U/L) Fin al Alk Phos 10/09/2023 15:34:48 119 35-130 (U/ L) Final Bilirubin, Total 10/09/2023 15:34:48 0.4 <=1 .2 (mg/dL) Final Calcium 10/09/2023 15:34:48 8.9 8.4-10.2 ( mg/dL) Final Protein 10/09/2023 15:34:48 6.5 6.0-8.3 (g /dL) Final ALT (Alanine aminotransferase) 10/09/2023 15:34:48 18 10-35 (U/L) [place] gal[place] Performing Location [facility] [place] [address] [facility] [address]
--- OUTSIDE RECORDS SUMMARY | 2023-12-02 01:54 | External Medical Summary | Summary of Care ---
Author Name Unknown Organization [facility] Address [address] [place] [address] Phone [phone] Care Team Providers Care Senior Environmental Consultant Name Role Phone Randy Valentine MD Primary Care Provide r Encounter Details Date Type Department Care Team (Late st Contact Info) Description 09/26/2023 Refill Family Medicine [address] [phone] Randy Valentine MD [address] [place] [address] [place] [address] Allergies Active Allergy Reactions Criticality Noted Date [...] Each 1 3 09/26/19 24 Discontinued Tiotropium [place] Monohydrate 18 MCG Inhalation Capsule (Spiriva)Indicati ons:Moderate persistent asthma without complication Inhale 1 Capsule by mouth in the morning. For inhaler only, do not swallow.. 30 Capsule 12 3 09/26/19 24 Discontinued Hospital, Clinic, or Other Facility Administered Medication Ordered Dose Route Frequency Start Date End Date Status vitamin b-12 (Cyanocobalamin) inj 1,000 mcgIndications:Vitamin B12 deficiency 1000 mcg IM [id number] 02/06/2023 01/08/2024 Active documented as of this [...] Taxonomy. Impaired fasting glucose 06/23/200607/2011 LOC PRIM [id number] 04/16/200609/24 LOC PRIM OSTEOARTH-ANKLE 04/16/2006 Sprain of [...] Influenza Virus Vac cine, Unspecified Formulation 02/26/2019,04/23/2018,03/05/2017,03/22,03/29/2015,04/23/2014,04/21/2013 ,03/25/2012,03/25/2011,03/25/2010,10/06/2008,04/06/2008,03/28/2004, 3,04/14/2002,05/20/2001 Seasonal Influenza, PF, 6 M & [...] Telephone Encounter - Randy Valentine MD - 09/26/2023 3:00 PM EDT Signed Prescriptions: Disp Refills Qacpqvdavvy-Ggdhravmu-Koiwld 200-62.5-25 M*60 Bli*3 Sig: Inhale 1 Puff by mouth daily.Authorizing Provider: RANDY VALENTINE * Telephone Encounter - Henna Ann RPh - 09/26/2023 2:35 PM EDT Patient currently taking the following 2 maintenance inhalers: TIOTROPIUM BROMIDE MONOHYDRATE 18 MCG (SPIRIVA): 1 capsule (2 puffs) once daily FLUTICASONE-SALMETEROL 250-50 MCG/ACT (ADVAIR DISKUS): 1 puff twice daily Patient is interested in switching to a combination inhaler. I recommend considering Trelegy to improve patient adherence and minimize their inhaler burden. Please sign if agreeable and route back so I can advise her. Thanks, Henna Ann, PharmD Clinical Pharmacist [facility] [phone] 09/26/2023, 2:49 PM documented in this encounter Plan of Treatment Upcoming Encounters Date Type Department Care Team (Late st Contact Info) Description 10/16/2023 3:00 PM EDT Office Visit Cardiology [address] [place] [address] Herberth Denny PA-Nithin [address] [place] [address] 12/03/2023 2:00 PM EDT Office Visit Family Medicine [address] [place] [phone] Randy Valentine MD [address] [place] [address] [place] [address] 02/01/2024 3:00 PM EDT Nurse Only Ancillary [address] [place] [address] [place], Nurse Annual Wellness [address] [place] [address] [place] [address] Health Maintenance Due Date Last Done Comments DXA Scan 01/04/2023 01/05/2020, 01/04/2015 COVID-19 Vaccine ( season) 2023 COLONOSCOPY-EVERY 5 YRS AGES 18-100 04/19/2023 04/19/2018, 04/19/2018, 09/29/2014, Additional history exists CKD PHOS USE SMARTSET 19756 07/03/202302/2023, 05/11/2021, 02/05/2020, Additional history exists GFR 07/22/2023 01/19/2023, 0 02/2023, 10/03/2021, Additional history exists HbA1c 07/22/2023 01/19/2023, 0 02/2023, 10/03/2021, Additional history exists Albumin/Creatinine Ratio 08/04/2023 023, 05/11/2021, 07/29/2019, Additional history exists CKD HGB USE SMARTSET 71420 01/20/202401/19, 01/19/2023, 07/03/2022, Additional history exists Depression [...] this encounter Medical Devices Implanted Type Area Grooving Machine Operator Device Identifier Shelf Expiration Date Model / Serial / Lot Lens Intraoc 19.5 - [id number] - [id number] Implanted:Qty: 1 on 03/17/2021 by Migel Dejesus MD at OR [facility] Left: Eye BAUSCH & LOMB 10/22/2025 [id number] / [id number] / [id number] Lens Intraoc 20.0 - [id number] - [id number] Implanted:Qty: 1 on 03/31/2021 by Migel Dejesus MD at OR [facility] Right: Eye BAUSCH & LOMB 12/22/2025 [id number] / [id number] / [id number] documented as of this encounter Advance Directives Healthcare Agents on File Name Relationship Healthcare Agent Relationshi p Communication [facility] esentative (appointed verbally by patient or by statute hierarchy) Yanci Adkins Adult Child Health Care Repr esentative (appointed verbally by patient or by statute hierarchy) Care Teams Senior Environmental Consultant Relationship Specialty Start Date End Date Randy Valentine MD [address] [place] [address] [place] [address] PCP - General Family Medicine 09/05/23 documented as of this encounter
--- OUTSIDE RECORDS SUMMARY | 2023-12-02 01:55 | External Medical Summary | Summary of Care ---
Author Name Unknown Organization [facility] Address [address] [place] [address] Phone [phone] Care Team Providers Care Mechanic Driver Name Role Phone Rosemary Valentine MD Primary Care Provide r Reason for Visit * Reason Onset Date Comments Advice 09/14/2023 Encounter Details Date Type Department Care Team (Late st Contact Info) Description 09/14/2023 Telephone Family Medicine [address] [phone] Rosemary Valentine MD [address] [place], [place] [address] [address] Advice Allergies Active Allergy Reactions Criticality Noted Date Comments Codeine Nausea/vomiting 08/15/2011 Propoxyphene N-Acetaminophen Nausea/vomiting Low 08/24/2008 Iodinated Contrast Media Hives 02/06/2023 Iodine Hives 01/08/2001 Latex 09/26/2012 Contact dermititis Nitrofurantoin Rash 09/07/2014 Metformin 04/12/2021 documented as of this encounter (statuses as of 09/20/2023) Medications Medication Sig Dispensed Refills Start Date [...] glucose E11.9 100 Strip 5 08/21/2022 Active OwlparrotTouch UltraSoft LancetsIndications:T ype 2 diabetes mellitus with stage 3a chronic kidney disease, without long-term current use of insulin ([facility]) Use once daily to check [...] the evening. 180 Tablet 1 01/19/2023 Active Trulicity 0.75 MG/0.5ML Subcutaneous Solution Pen-injector (Dulaglutide)Indicat ions:Type 2 diabetes mellitus with stage 3a chronic kidney disease, without long-term current use of insulin (HCC) Inject 0.75 mg under the skin once a week. (on Mondays) 6 mL 3 02/20/2023 Active Ezetimibe 10 MG Oral Tablet (Zetia)Indications:D yslipidemia, goal LDL below 70 TAKE ONE TABLET BY MOUTH IN THE MORNING 90 Tablet 3 03/05/2023 Active Tiotropium [place] Monohydrate 18 MCG Inhalation Capsule (Spiriva)Indications :Moderate [...] 1,000 mcgIndications:Vitamin B12 deficiency 1000 mcg IM [id number] 02/06/2023 01/08/2024 Active documented as of this encounter (statuses as of 09/20/2023) Active Problems Problem Noted Date Diagnosed Date [...] as of this encounter (statuses as of 09/20/2023) Resolved Problems Problem Noted Date Diagnosed Date [...] Taxonomy. Impaired fasting glucose 06/23/200607/2011 LOC PRIM [id number] 04/16/200609/24 LOC PRIM OSTEOARTH-ANKLE 04/16/2006 Sprain of [...] as of this encounter (statuses as of 09/20/2023) Immunizations Name Administration Dates Next Due Pneumococcal [...] Telephone Encounter - Rosemary Valentine MD - 09/20/2023 9:28 AM EDT Ok.Agree with advice. Thank you. * Telephone Encounter - Josephine Barraza RN - 09/20/2023 9:06 AM EDT Spoke to patient she is feeling better, she did not take the bactrim as directed, she didn't realize it was bid, patient took one daily and has one pill left. Counseled patient if her symptoms returnshe needs to call the office, patient to increase her water and empty bladder every 2 hours. Patient ok with advice. I will message Rosemary Valentine MD as FYI Reason for Call: Advice Contact: Telephone Call Contact Type: Medication Outcome: see note Face to face time spent with Patient (minutes): 0 Total Time including non face to face (minutes): 10 * Telephone Encounter - Rosemary Valentine MD - 09/18/2023 4:31 PM EDT This was ordered by someone else. Bactrim was sent already today. She has UTI. * Telephone Encounter - Mini Diaz LPN - 09/18/2023 3:37 PM EDT See urine results. Please advise. Thanks. * Telephone Encounter - Rhina Xiong OSA - 09/14/2023 3:37 PM EDT Patient called states she just dropped off urine sample to lab. She wants Dr. Valentine to be aware she did notice blood in urine this morning. documented in this encounter Plan of Treatment Upcoming Encounters Date Type Department Care Team (Late st Contact Info) Description 10/16/2023 3:00 PM EDT Office Visit Cardiology [address] [place] [address] Herberth Denny PA-C [address] [place] [address] 12/03/2023 2:00 PM EDT Office Visit Family Medicine [address] [place] [phone] Rosemary Valentine MD [address] [place] [address] [place] [address] 02/01/2024 3:00 PM EDT Nurse Only Ancillary [address] [place] [address] [place], Nurse Annual Wellness [address] [place] [address] [place] [address] Health Maintenance Due Date Last Done Comments DXA Scan 01/04/2023 01/05/2020, 01/04/2015 COVID-19 Vaccine ( season) 2023 COLONOSCOPY-EVERY 5 YRS AGES 18-100 04/19/2023 04/19/2018, 04/19/2018, 09/29/2014, Additional history exists CKD PHOS USE SMARTSET 32839 07/03/202302/2023, 05/11/2021, 02/05/2020, Additional history exists GFR 07/22/2023 01/19/2023, 0 02/2023, 10/03/2021, Additional history exists HbA1c 07/22/2023 01/19/2023, 0 02/2023, 10/03/2021, Additional history exists Albumin/Creatinine Ratio 08/04/20232 023, 05/11/2021, 07/29/2019, Additional history exists CKD HGB USE SMARTSET 91464 01/20/202401/19, 01/19/2023, 07/03/2022, Additional history exists Depression [...] this encounter Medical Devices Implanted Type Area Postal Inspector Device Identifier Shelf Expiration Date Model / Serial / Lot Lens Intraoc 19.5 - [id number] - [id number] Implanted:Qty: 1 on 03/17/2021 by Migel Dejesus MD at OR [facility] Left: Eye BAUSCH & LOMB 10/22/2025 [id number] / [id number] / [id number] Lens Intraoc 20.0 - [id number] - [id number] Implanted:Qty: 1 on 03/31/2021 by Migel Dejesus MD at OR [facility] Right: Eye BAUSCH & LOMB 12/22/2025 [id number] / [id number] / [id number] documented as of this encounter Advance Directives Healthcare Agents on File Name Relationship Healthcare Agent Relationshi p Communication Mimi Vieyra Adult Child Health Care Repr esentative (appointed verbally by patient or by statute hierarchy) Yanci Adkins Adult Child Health Care Repr esentative (appointed verbally by patient or by statute hierarchy) Care Teams Mechanic Driver Relationship Specialty Start Date End Date Rosemary Valentine MD [address] [place] [address] [place] [phone] PCP - General Family Medicine 09/05/23 documented as of this encounter
--- OUTSIDE RECORDS SUMMARY | 2023-12-02 01:55 | External Medical Summary | Summary of Care ---
Author Name Unknown Organization [facility] Address [address] [place] [address] Phone [phone] Care Team Providers Care Psych Specialist Name Role Phone Rosemary Valentine MD Primary Care Provide r Reason for Visit * Reason Onset Date Comments Advice 09/21/2023 case management 09/21/2023 Encounter Details Date Type Department Care Team (Late st Contact Info) Description 09/21/2023 Telephone Care Coordination and Integration [address] [place] [address] Hilary Rollins RN [address] [place] [address] Advice; case management Allergies Active Allergy Reactions Criticality Noted Date Comments Codeine Nausea/vomiting 08/15/2011 Propoxyphene N-Acetaminophen Nausea/vomiting Low 08/24/2008 Iodinated Contrast Media Hives 02/06/2023 Iodine Hives 01/08/2001 Latex 09/26/2012 Contact dermititis Nitrofurantoin Rash 09/07/2014 Metformin 04/12/2021 documented as of this encounter (statuses as of 09/21/2023) Medications Medication Sig Dispensed Refills Start Date [...] glucose E11.9 100 Strip 5 08/21/2022 Active Lattice Voice TechnologiesTouch UltraSoft LancetsIndications:T ype 2 diabetes mellitus with [...] MORNING 90 Tablet 3 03/05/2023 Active Tiotropium [place] Monohydrate 18 MCG Inhalation Capsule (Spiriva)Indications :Moderate [...] depressive disorder without prior episode ([facility]) TAKE 1 - 2 TABLETS BY MOUTH [...] 1,000 mcgIndications:Vitamin B12 deficiency 1000 mcg IM [id number] 02/06/2023 01/08/2024 Active documented as of this encounter (statuses as of 09/21/2023) Active Problems Problem Noted Date Diagnosed Date [...] as of this encounter (statuses as of 09/21/2023) Resolved Problems Problem Noted Date Diagnosed Date [...] Taxonomy. Impaired fasting glucose 06/23/200607/2011 LOC PRIM [id number] 04/16/200609/24 LOC PRIM OSTEOARTH-ANKLE 04/16/2006 Sprain of [...] as of this encounter (statuses as of 09/21/2023) Immunizations Name Administration Dates Next Due Pneumococcal [...] Encounter - Hilary Rollins RN - 09/21/2023 12:40 PM EDT Attempted to contact patient. No answer. Left message that Dr Valentine said it was okay for her to take the Mucinex. [facility]. * Telephone Encounter - Rosemary Valentine MD - 09/21/2023 11:16 AM EDT Yes, she can take Mucinex. * Telephone Encounter - Hilary Rollins RN - 09/21/2023 10:37 AM EDT Patient asking if she can try OTC Mucinex for her ongoing respiratory symptoms? She was afraid to try it due to the warning labels on the packaging - and her medical conditions. (Can see list of symptoms in 'other' encounter dated today.) Please advise..... documented in this encounter Plan of Treatment Upcoming Encounters Date Type Department Care Team (Late st Contact Info) Description 09/24/2023 4:00 PM EDT Office Visit Family [address] [phone] Rasheeda Ramos CRNP [address] [place] [address] [place] [address] 10/16/2023 3:00 PM EDT Office Visit Cardiology [address] [place] [address] Herberth Denny PA-C [address] [place] [address] 12/03/2023 2:00 PM EDT Office Visit Family Medicine [address] [place] [phone] Rosemary Valentine MD [address] [place] [address] [place] [address] 02/01/2024 3:00 PM EDT Nurse Only Ancillary [address] [place] [address] [place], Nurse Annual [address] [place] [address] Health Maintenance Due Date Last Done Comments DXA Scan 01/04/2023 01/05/2020, 01/04/2015 COVID-19 Vaccine (2022- season) 2023 COLONOSCOPY-EVERY 5 YRS AGES 18-100 04/19/2023 04/19/2018, 04/19/2018, 09/29/2014, Additional history exists CKD PHOS USE SMARTSET 63808 07/03/202302/2023, 05/11/2021, 02/05/2020, Additional history exists GFR 07/22/2023 01/19/2023, 0 02/2023, 10/03/2021, Additional history exists HbA1c 07/22/2023 01/19/2023, 0 02/2023, 10/03/2021, Additional history exists Albumin/Creatinine Ratio 08/04/2023 023, 05/11/2021, 07/29/2019, Additional history exists CKD HGB USE SMARTSET 91902 01/20/202401/19, 01/19/2023, 07/03/2022, Additional history exists Depression [...] this encounter Medical Devices Implanted Type Area Data Warehouse Developer Device Identifier Shelf Expiration Date Model / Serial / Lot Lens Intraoc 19.5 - [id number] - [id number] Implanted:Qty: 1 on 03/17/2021 by Migel Dejesus MD at OR [facility] Left: Eye BAUSCH & LOMB 10/22/2025 [id number] / [id number] / [id number] Lens Intraoc 20.0 - [id number] - [id number] Implanted:Qty: 1 on 03/31/2021 by Migel Dejesus MD at OR [facility] Right: Eye BAUSCH & LOMB 12/22/2025 [id number] / [id number] / [id number] documented as of this encounter Visit Diagnoses [...] patient or by statute hierarchy) Care Teams Psych Specialist Relationship Specialty Start Date End Date Rosemary Valentine MD [address] [place] [address] [place] [address] PCP - General Family Medicine 09/05/23 documented as of this encounter
--- OUTSIDE RECORDS SUMMARY | 2023-12-02 01:55 | External Medical Summary | Summary of Care ---
Author Name Unknown Organization [facility] Address [address] [place] [address] Phone [phone] Care Team Providers Care Harbor Tug Captain Name Role Phone Rosemary Valentine MD Primary Care Provide r Encounter Details Date Type Department Care Team (Late st Contact Info) Description 09/20/2023 Population Health External Data Unspecified Department Allergies Active Allergy Reactions Criticality Noted Date Comments Codeine Nausea/vomiting 08/15/2011 Propoxyphene N-Acetaminophen Nausea/vomiting Low 08/24/2008 Iodinated Contrast Media Hives 02/06/2023 Iodine Hives 01/08/2001 Latex 09/26/2012 Contact dermititis Nitrofurantoin Rash 09/07/2014 Metformin 04/12/2021 documented as of this encounter (statuses as of 09/25/2023) Medications Medication Sig Dispensed Refills Start Date [...] without long-term current use of insulin ([facility]) Use once daily to check glucose E11.9 100 Strip 5 08/21/2022 Active OneTouch UltraSoft LancetsIndications:T ype 2 diabetes mellitus with stage 3a chronic kidney disease, without long-term current use of insulin ([facility]) Use once daily to check glucose E11.9 [...] without long-term current use of insulin ([facility]) Inject 0.75 mg under the skin once a week. (on Mondays) 6 mL 3 02/20/2023 Active Ezetimibe 10 MG Oral Tablet (Zetia)Indications:D yslipidemia, goal LDL below 70 TAKE ONE TABLET BY MOUTH IN THE MORNING 90 Tablet 3 03/05/2023 Active Tiotropium [place] Monohydrate 18 MCG Inhalation Capsule (Spiriva)Indications :Moderate [...] 1,000 mcgIndications:Vitamin B12 deficiency 1000 mcg IM [id number] 02/06/2023 01/08/2024 Active documented as of this encounter (statuses as of 09/25/2023) Active Problems Problem Noted Date Diagnosed Date [...] as of this encounter (statuses as of 09/25/2023) Resolved Problems Problem Noted Date Diagnosed Date [...] Taxonomy. Impaired fasting glucose 06/23/200607/2011 LOC PRIM [id number] 04/16/200609/24 LOC PRIM OSTEOARTH-ANKLE 04/16/2006 Sprain of [...] as of this encounter (statuses as of 09/25/2023) Immunizations Name Administration Dates Next Due Pneumococcal [...] 1:30 PM EDT Medication Management Unruly Escobedo CMR [address] [place] [address] Pharmacist, Unruly Escobedo [facility] Cmr [address] [place] [address] 10/16/2023 3:00 PM EDT Office Visit Cardiology [address] [place] [address] Herberth Denny PA-C [address] [place] [address] 12/03/2023 2:00 PM EDT Office Visit Family Medicine [address] [place] [phone] Rosemary Valentine MD [address] [place] [address] [place] [address] 02/01/2024 3:00 PM EDT Nurse Only Ancillary [address] [place] [address] [place], Nurse Annual Wellness [address] [place] [address] [place] [address] Health Maintenance Due Date Last Done Comments DXA Scan 01/04/2023 01/05/2020, 01/04/2015 COVID-19 Vaccine ( season) 2023 COLONOSCOPY-EVERY 5 YRS AGES 18-100 04/19/2023 04/19/2018, 04/19/2018, 09/29/2014, Additional history exists CKD PHOS USE SMARTSET 20256 07/03/20230 02/2023, 05/11/2021, 02/05/2020, Additional history exists GFR 07/22/2023 01/19/2023, 0 02/2023, 10/03/2021, Additional history exists HbA1c 07/22/2023 01/19/2023, 0 02/2023, 10/03/2021, Additional history exists Albumin/Creatinine Ratio 08/04/2023 023, 05/11/2021, 07/29/2019, Additional history exists CKD HGB USE SMARTSET 12325 01/20/202401/19, 01/19/2023, 07/03/2022, Additional history exists Depression Screening 01/30/2024 01/29/2023 Diabetic Foot Exam 01/30/2024 01/29/2023, 0 01/23/2022, 12/20/2020, Additional history exists TSH 03/19/2024 03/19/2023, 072 01/2023, 11/27/2022, Additional history exists Diabetic Eye [...] this encounter Medical Devices Implanted Type Area Curtain Framer Device Identifier Shelf Expiration Date Model / Serial / Lot Lens Intraoc 19.5 - [id number] - [id number] Implanted:Qty: 1 on 03/17/2021 by Migel Dejesus MD at OR [facility] Left: Eye BAUSCH & LOMB 10/22/2025 [id number] / [id number] / [id number] Lens Intraoc 20.0 - [id number] - [id number] Implanted:Qty: 1 on 03/31/2021 by Migel Dejesus MD at OR [facility] Right: Eye BAUSCH & LOMB 12/22/2025 [id number] / [id number] / [id number] documented as of this encounter Advance Directives Healthcare Agents on File Name Relationship Healthcare Agent Relationshi p Communication Mimi Vieyra Adult Child Health Care Repr esentative (appointed verbally by patient or by statute hierarchy) Yanci Adkins Adult Child Health Care Repr esentative (appointed verbally by patient or by statute hierarchy) Care Teams Harbor Tug Captain Relationship Specialty Start Date End Date Rosemary Valentine MD [address] [place] [address] [place] [address] PCP - General Family Medicine 09/05/23 documented as of this encounter
--- OUTSIDE RECORDS SUMMARY | 2023-12-02 01:55 | External Medical Summary | Summary of Care ---
Author Name Unknown Organization [facility] Address [address] [place] [address] Phone [phone] Care Team Providers Care Buildings And Grounds Superintendent Name Role Phone Rosemary Valentine MD Primary Care Provide r Reason for Referral * Medication Prior Authorization - Pending Review Specialty Diagnoses / Procedures Referred By Contac t Referred To Contact Diagnoses Type 2 diabetes mellitus with stage 3a chronic kidney disease, without long-term current use of insulin ([facility]) Katina Cruz, [facility] [address] [place] [address] Referral ID Status Reason Start Date Expiration Date V isits Requested Visits Authorized [id number] Pending Review 999 999 Reason for Visit * Reason Onset Date Comments Medication Refill 09/24/2023 Encounter Details Date Type Department Care Team (Late st Contact Info) Description 09/24/2023 Telephone Family Medicine [address] [place] [phone] Rosemary Valentine MD [address] [place] [address] [place] [address] Medication Refill Allergies Active Allergy Reactions Criticality Noted Date Comments Codeine Nausea/vomiting 08/15/2011 Propoxyphene N-Acetaminophen Nausea/vomiting Low 08/24/2008 Iodinated Contrast Media Hives 02/06/2023 Iodine Hives 01/08/2001 Latex 09/26/2012 Contact dermititis Nitrofurantoin Rash 09/07/2014 Metformin 04/12/2021 documented as of this encounter (statuses as of 09/25/2023) Medications Medication Sig Dispensed Refills Start Date End Date Status ASPIRIN 81 MG PO TABSIndications:he art Take by mouth daily. 0 Active Iron-Vitamin [...] THE MORNING 90 Tablet 3 08/17/2022 Active ZeomatrixTouch Verio In Vitro Strip (Glucose Blood)Indications: Type 2 diabetes mellitus with stage 3a chronic kidney disease, without long-term current use of insulin (HCC) Use once daily to check glucose E11.9 100 Strip 5 08/21/2022 Active ZeomatrixTouch UltraSoft LancetsIndications :Type 2 diabetes mellitus with [...] every 8 hours as needed. 0 Active Fluticasone-Salmet moy 250-50 MCG/ACT Inhalation Aerosol Powder Breath Activated [...] MORNING 90 Tablet 3 03/05/2023 Active Tiotropium [place] Monohydrate 18 MCG Inhalation Capsule (Spiriva)Indicatio ns:Moderate persistent asthma without complication Inhale 1 Capsule [...] 08/28/2023 Active ALPRAZolam 0.5 MG Oral Tablet (xaNAX)Indications [...] (on Mondays) 6 mL 1 09/25/2023 Active Trulicity 0.75 MG/0.5ML Subcutaneous Solution Pen-injector (Dulaglutide)Indic ations:Type 2 diabetes mellitus with stage 3a chronic kidney disease, without long-term current use of insulin (HCC) Inject 0.75 mg under the skin once a week. (on Mondays) 6 mL 3 02/20/2023 Discontinue d(Refill) Hospital, Clinic, or Other Facility Administered Medication Ordered Dose Route Frequency Start Date End Date Status vitamin b-12 (Cyanocobalamin) inj 1,000 mcgIndications:Vitamin B12 deficiency 1000 mcg IM [id number] 02/06/2023 01/08/2024 Active documented as of this [...] Taxonomy. Impaired fasting glucose 06/23/200607/2011 LOC PRIM [id number] 04/16/200609/24 LOC PRIM OSTEOARTH-ANKLE 04/16/2006 Sprain of [...] Telephone Encounter - Rosemary Valentine MD - 09/25/2023 12:26 PM EDT Signed Prescriptions: Disp Refills Trulicity 0.75 MG/0.5ML Subcutaneous Solut*6 mL 1 Sig: Inject 0.75 mg under the skin once a week. (on Mondays)Authorizing Provider: ROSEMARY VALENTINEOrdering User: KATINA CRUZ * Telephone Encounter - Laurent Montero CPhT - 09/25/2023 12:10 PM EDT Patients insurance would like to inform the office that TRULICITY 0.75 MG/0.5 ML PEN is not requiring review because Patient has an open ended auth on file for med. Paid claim at pharmacy 09/25/2023. Thank you, Pradip Montero (farm crew leader) Stopperer Assembler III [facility] ([facility]) 09/25/2023, 12:10 PM * Telephone Encounter - Katina Cruz [facility] - 09/25/2023 10:55 AM EDT Pending Prescriptions: Disp Refills Ondansetron HCl 4 MG Oral Tablet (Zofran) 30 Tab*2 Sig: take 1 tablet every 6 hours as needed for nausea. Signed Prescriptions: Disp Refills Trulicity 0.75 MG/0.5ML Subcutaneous Solut*6 mL 1 Sig: Inject 0.75 mg under the skin once a week. (on Mondays) Authorizing Provider: ROSEMARY VALENTINE Ordering User: KATINA CRUZ * Telephone Encounter - Katina Cruz [facility] - 09/25/2023 10:54 AM EDT Unable to authorize medication refills for pended medication(s) at this time. Part of the protocol criteria used for refill authorization was not satisfied. Patient has a diagnosis of heart failure. Please approve if appropriate. Thank You Katina Cruz PharmD Clinical Pharmacist [facility] [phone] / [phone] 09/25/2023, 10:54 AM * Telephone Encounter - Heydi Pérez PHARM Tech - 09/24/2023 11:14 AM EDT Did you pend patient's preferred pharmacy and medication before forwarding?yes Pharmacy: [id number] [address] [facility] Pending Prescriptions: Disp Refills Trulicity 0.75 MG/0.5ML Subcutaneous Solu*6 mL 3 Sig: Inject 0.75 mg under the skin once a week. (on Mondays) Ondansetron HCl 4 MG Oral Tablet (Zofran) 30 Tab*2 Sig: take 1 tablet every 6 hours as needed for nausea. Last Visit: 08/28/2023 (in office), Visit date not found (telemedicine) Next Visit: 09/24/2023 If no future appointments scheduled, and last appointment is greater than a year ago, please schedule patient for a follow-up appointment Last date the medication was ordered: 07-28-23,02-20-23 Is this request for a controlled substance?No [...] EDT Medication Management Unruly Escobedo CMR [address] [place] [address] Pharmacist, Unruly Escobedo [facility] C[facility] [address] [place] [address] 10/16/2023 3:00 PM EDT Office Visit Cardiology [address] [place] [address] Herberth Denny PA-C [address] [place] [address] 12/03/2023 2:00 PM EDT Office Visit Family Medicine [address] [place] [phone] Rosemary Valentine MD [address] [place] [address] [place] [address] 02/01/2024 3:00 PM EDT Nurse Only Ancillary [address] [place] [address] [place], Nurse Annual Wellness [address] [place] [address] [place] [address] Health Maintenance Due Date Last Done Comments DXA Scan 01/04/2023 01/05/2020, 01/04/2015 COVID-19 Vaccine ( season) 2023 COLONOSCOPY-EVERY 5 YRS AGES 18-100 04/19/2023 04/19/2018, 04/19/2018, 09/29/2014, Additional history exists CKD PHOS USE SMARTSET 00355 07/03/202302/2023, 05/11/2021, 02/05/2020, Additional history exists GFR 07/22/2023 01/19/2023, 02/2023, 10/03/2021, Additional history exists HbA1c 07/22/2023 01/19/2023, 02/2023, 10/03/2021, Additional history exists Albumin/Creatinine Ratio 08/04/2023 023, 05/11/2021, 07/29/2019, Additional history exists CKD HGB USE SMARTSET 09403 01/20/202401/19, 01/19/2023, 07/03/2022, Additional history exists Depression Screening 01/30/2024 01/29/2023 Diabetic Foot Exam 01/30/2024 01/29/2023, 0 01/23/2022, 12/20/2020, Additional history exists TSH 03/19/2024 03/19/2023, 0701/2023, 11/27/2022, Additional history exists Diabetic Eye Exam [...] this encounter Medical Devices Implanted Type Area Fac Engineer Device Identifier Shelf Expiration Date Model / Serial / Lot Lens Intraoc 19.5 - [id number] - [id number] Implanted:Qty: 1 on 03/17/2021 by Migel Dejesus MD at [facility] Left: Eye [employer] 10/22/2025 [id number] / [id number] / [id number] Lens Intraoc 20.0 - [id number] - [id number] Implanted:Qty: 1 on 03/31/2021 by Migel Dejesus MD at OR [facility] Right: Eye BA[employer]CH [employer] LOMB 12/22/2025 [id number] / [id number] / [id number] documented as of this encounter Visit Diagnoses Diagnosis Type 2 diabetes mellitus with stage 3a chronic kidney disease, without long-term current use of insulin (HCC) Nausea without vomiting documented in this encounter Advance Directives Healthcare Agents on File Name Relationship Healthcare Agent Relationshi p Communication Mimi Jarrell Adult Child Health Care Repr esentative (appointed verbally by patient or by statute hierarchy) Yanci Adkins Adult Child Health Care Repr esentative (appointed verbally by patient or by statute hierarchy) Care Teams Buildings And Grounds Superintendent Relationship Specialty Start Date End Date Rosemary Valentine MD [address] [place] [address] [place] [address] PCP - General Family Medicine 09/05/23 documented as of this encounter
--- OUTSIDE RECORDS SUMMARY | 2023-12-02 01:56 | External Medical Summary ---
Author Name Unknown Address Unknown Organization K01:[facility]ATORY [facility] - [address] [facility] [address] Laboratory Report Ordering Provider Test Date Status KAM QUIÑONES 09/14/2023 14:54:36 Final Observation Date Value Abnormality Reference (Units ) Status Color of Urine by Auto 09/14/2023 14:54:36 Dark Yellow Colorless, Light Yellow, Yellow, Dark Yellow Final Clarity, Urine 09/14/2023 14:54:36 Cloudy Abnormal Clear Final Glucose [Mass/volume] in Urine by Automated test strip 09/14/2023 14:54:36 Negative Negative (mg/dL) Final Bilirubin.total [Presence] in Urine by Automated test strip 09/14/2023 14:54:36 Negative Negative Final Ketones [Mass/volume] in Urine by Automated test strip 09/14/2023 14:54:36 Negative Negative (mg/dL) Final Specific gravity, Urine 09/14/2023 14:54:36 1.015 1.003-1.030 Final Hemoglobin [Presence] in Urine by Automated test strip 09/14/2023 14:54:36 Large Abnormal Negative Final pH, Urine 09/14/2023 14:54:36 6.0 5.0-7.5 (Units) Final Protein [Mass/volume] in Urine by Automated test strip 09/14/2023 14:54:36 >300 Abnormal Negative (mg/dL) Final Urobilinogen [Mass/volume] in Urine by Automated test strip 09/14/2023 14:54:36 Normal Normal (mg/dL) Final Nitrite [Presence] in Urine by Automated test strip 09/14/2023 14:54:36 Negative Negative Final Leukocyte esterase [Presence] in Urine by Automated test strip 09/14/2023 14:54:36 Large Abnormal Negative Final RBC, Urine 09/14/2023 14:54:36 50+ Abnormal 0-2 (/HPF) Final WBC, Urine 09/14/2023 14:54:36 50+ Abnormal 0-2 (/HPF) Final Bacteria [#/area] in Urine sediment by Microscopy high power field 09/14/2023 14:54:36 >200 Abnormal 0-25 (/HPF) Final Leukocyte clumps [#/area] in Urine sediment by Microscopy high power field 09/14/2023 14:54:36 Present Abnormal None (/HPF) Final Performing Location [facility]ORY [facility] - [address] [facility] [address]
--- OUTSIDE RECORDS SUMMARY | 2023-12-02 01:56 | External Medical Summary | Summary of Care ---
Author Name Unknown Organization [facility] Address [address] [place] [address] Phone [phone] Care Team Providers Care Field Care Manager Name Role Phone Rosemary Valentine MD Primary Care Provide r Reason for Visit * Reason Comments Medication Administration B 12 inj Encounter Details Date Type Department Care Team (Late st Contact Info) Description 09/14/2023 3:00 PM EDT Nurse Only Ancillary [address] [place] [address] [place], Nurse [address] [place] [address] Medication Administration (B 12 inj) Allergies Active Allergy Reactions Criticality Noted Date Comments Codeine Nausea/vomiting 08/15/2011 Propoxyphene N-Acetaminophen Nausea/vomiting Low 08/24/2008 Iodinated Contrast Media Hives 02/06/2023 Iodine Hives 01/08/2001 Latex 09/26/2012 Contact dermititis Nitrofurantoin Rash 09/07/2014 Metformin 04/12/2021 documented as of this encounter (statuses as of 09/14/2023) Medications Medication Sig Dispensed Refills Start Date [...] glucose E11.9 100 Strip 5 08/21/2022 Active AppCastTouch UltraSoft LancetsIndications:T ype 2 diabetes mellitus with [...] MORNING 90 Tablet 3 03/05/2023 Active Tiotropium [place] Monohydrate 18 MCG Inhalation Capsule (Spiriva)Indications :Moderate [...] 1,000 mcgIndications:Vitamin B12 deficiency 1000 mcg IM [id number] 02/06/2023 01/08/2024 Active documented as of this encounter (statuses as of 09/14/2023) Active Problems Problem Noted Date Diagnosed Date [...] as of this encounter (statuses as of 09/14/2023) Resolved Problems Problem Noted Date Diagnosed Date [...] Taxonomy. Impaired fasting glucose 06/23/200607/2011 LOC PRIM [id number] 04/16/200609/24 LOC PRIM OSTEOARTH-ANKLE 04/16/2006 Sprain of [...] as of this encounter (statuses as of 09/14/2023) Immunizations Name Administration Dates Next Due Pneumococcal [...] Nursing Notes * Thea Mccann LPN - 09/14/2023 2:52 PM EDT Time Out Procedure Performed: Yes [...] Team (Late st Contact Info) Description 09/14/2023 3:20 PM EDT Laboratory Laboratory [address] [place] [phone] [facility] [address] [place] [address] Suspected urinary tract infection 10/16/2023 3:00 PM EDT Office Visit Cardiology [address] [place] [address] Herberth Denny PA-C [address] [place] [address] 12/03/2023 2:00 PM EDT Office Visit Family Medicine [address] [place] [phone] Rosemary Valentine MD [address] [place] [address] [place] [address] 02/01/2024 3:00 PM EDT Nurse Only Ancillary [address] [place] [address] [place], Nurse Annual [address] [place] [address] Health Maintenance Due Date Last Done Comments DXA Scan 01/04/2023 01/05/2020, 01/04/2015 COVID-19 Vaccine (2022- season) 2023 COLONOSCOPY-EVERY 5 YRS AGES 18-100 04/19/2023 04/19/2018, 04/19/2018, 09/29/2014, Additional history exists CKD PHOS USE SMARTSET 52877 07/03/2023/02/2023, 05/11/2021, 02/05/2020, Additional history exists GFR 07/22/2023 01/19/2023, /0 02/2023, 10/03/2021, Additional history exists HbA1c 07/22/2023 01/19/2023, 0 02/2023, 10/03/2021, Additional history exists Albumin/Creatinine Ratio 08/04/2023 023, 05/11/2021, 07/29/2019, Additional history exists CKD HGB USE SMARTSET 90676 01/20/202401/19, 01/19/2023, 07/03/2022, Additional history exists Depression [...] this encounter Medical Devices Implanted Type Area Assistant Scientist Device Identifier Shelf Expiration Date Model / Serial / Lot Lens Intraoc 19.5 - [id number] - [id number] Implanted:Qty: 1 on 03/17/2021 by Migel Dejesus MD at OR [facility] Left: Eye [employer]CH [employer]OMB 10/22/2025 [id number] / [id number] / [id number] Lens Intraoc 20.0 - [id number] - [id number] Implanted:Qty: 1 on 03/31/2021 by Migel Dejesus MD at OR [facility] Right: Eye BAUSCH [employer] LOMB 12/22/2025 [id number] / [id number] / [id number] documented as of this encounter Administered Medications Active Administered Medications - up to 3 most recent administrations Medication Order MAR Action Action Date Dose Rate Site vitamin b-12 (Cyanocobalamin) inj 1,000 mcg 1,000 mcg, Intramuscular, [id number], First dose on Sun02/06/23 at 1345, Last dose on Sun12/11/23 at 1345, For 12 doses Given 09/14/2023 2:48 PM EDT 1,000 mcg Deltoid Right Upper Given 07/20/2023 3:43 PM EST 1,000 mcg De ltoid Left Upper Given 06/07/2023 3:39 PM EST 1,000 mcg De ltoid Right Upper documented in this encounter Advance Directives Healthcare Agents on File Name Relationship Healthcare Agent Relationshi p Communication Mimi Jarrell Adult Child Health Care Repr esentative (appointed verbally by patient or by statute hierarchy) Yanci Adkins Adult Child Health Care Repr esentative (appointed verbally by patient or by statute hierarchy) Care Teams Field Care Manager Relationship Specialty Start Date End Date Rosemary Valentine MD [address] [place] [address] [place] [address] PCP - General Family Medicine 09/05/23 documented as of this encounter
--- OUTSIDE RECORDS SUMMARY | 2023-12-02 01:56 | External Medical Summary | Summary of Care ---
Author Name Unknown Organization [facility] Address [address] [place] [address] Phone [phone] Care Team Providers Care Square Dance Caller Name Role Phone Rosemary Valentine MD Primary Care Provide r Reason for Visit * Reason Comments Outpatient Testing Encounter Details Date Type Department Care Team (Late st Contact Info) Description 09/14/2023 3:20 PM EDT Laboratory Laboratory [address] [place] [phone] [address] [place] [address] Suspected urinary tract infection Allergies Active Allergy [...] glucose E11.9 100 Strip 5 08/21/2022 Active LineHopTouch UltraSoft LancetsIndications:T ype 2 diabetes mellitus with [...] MORNING 90 Tablet 3 03/05/2023 Active Tiotropium [place] Monohydrate 18 MCG Inhalation Capsule (Spiriva)Indications :Moderate [...] 1,000 mcgIndications:Vitamin B12 deficiency 1000 mcg IM [id number] 02/06/2023 01/08/2024 Active documented as of this [...] Taxonomy. Impaired fasting glucose 06/23/200607/2011 LOC PRIM [id number] 04/16/200609/24 LOC PRIM OSTEOARTH-ANKLE 04/16/2006 Sprain of [...] 10/16/2023 3:00 PM EDT Office Visit Cardiology [address] [place] [address] Herberth Denny PA-C [address] [place] [address] 12/03/2023 2:00 PM EDT Office Visit Family Medicine [address] [place] [phone] Rosemary Valentine MD [address] [place] [address] [place] [address] 02/01/2024 3:00 PM EDT Nurse Only Ancillary [address] [place] [address] [place], Nurse Annual Wellness [address] [place] [address] [place] [address] Pending Results Name Type Priority Associated Diagnoses Date /Time URINALYSIS WITH MICROSCOPIC EXAM Lab Routine Suspected urinary tract infection 09/14/2023 2:54 PM EDT CULTURE, URINE, QUANTITATIVE Lab Routine Suspected urinary tract infection 09/14/2023 2:54 PM EDT Health Maintenance Due Date Last Done Comments DXA Scan 01/04/2023 01/05/2020, 01/04/2015 COVID-19 Vaccine ( season) 2023 COLONOSCOPY-EVERY 5 YRS AGES 18-100 04/19/2023 04/19/2018, 04/19/2018, 09/29/2014, Additional history exists CKD PHOS USE SMARTSET 24381 07/03/20230 02/2023, 05/11/2021, 02/05/2020, Additional history exists GFR 07/22/2023 01/19/2023, 0 02/2023, 10/03/2021, Additional history exists HbA1c 07/22/2023 01/19/2023, 010 02/2023, 10/03/2021, Additional history exists Albumin/Creatinine Ratio 08/04/20232 023, 05/11/2021, 07/29/2019, Additional history exists CKD HGB USE SMARTSET 21128 01/20/202401/19, 01/19/2023, 07/03/2022, Additional history exists Depression [...] this encounter Medical Devices Implanted Type Area Refinery Operator Light Ends Recovery Device Identifier Shelf Expiration Date Model / Serial / Lot Lens Intraoc 19.5 - [id number] - [id number] Implanted:Qty: 1 on 03/17/2021 by Migel Dejesus MD at OR [facility] Left: Eye [employer]CH [employer] LOMB 10/22/2025 [id number] / [id number] / [id number] Lens Intraoc 20.0 - [id number] - [id number] Implanted:Qty: 1 on 03/31/2021 by Migel Dejesus MD at OR [facility] Right: Eye BAUSCH & LOMB 12/22/2025 [id number] / [id number] / [id number] documented as of this encounter Visit Diagnoses Diagnosis Suspected urinary tract infection documented in this encounter Advance Directives Healthcare Agents on File Name Relationship [facility] Mimi Vieyra Adult Child Health Care Repr esentative (appointed verbally by patient or by statute hierarchy) Yanci Adkins Adult Child Health Care Repr esentative (appointed verbally by patient or by statute hierarchy) Care Teams Square Dance Caller Relationship Specialty Start Date End Date Rosemary Valentine MD [address] [place] [address] [place] [address] PCP - General Family Medicine 09/05/23 documented as of this encounter
--- OUTSIDE RECORDS SUMMARY | 2023-12-02 01:56 | External Medical Summary | Summary of Care ---
Author Name Unknown Organization [facility] Address [address] [place] [address] Phone [phone] Care Team Providers Care Anode Crew Supervisor Name Role Phone Rosemary Valentine MD Primary Care Provide r Reason for Visit * Reason Onset Date Comments Test Results 09/07/2023 Encounter Details Date Type Department Care Team (Late st Contact Info) Description 09/07/2023 Telephone Family Medicine [address] [phone] Shanell Agarwal MD [address] [place] [address] [place] [address] Test Results Allergies Active Allergy Reactions Criticality Noted Date Comments Codeine Nausea/vomiting 08/15/2011 Propoxyphene N-Acetaminophen Nausea/vomiting Low 08/24/2008 Iodinated Contrast Media Hives 02/06/2023 Iodine Hives 01/08/2001 Latex 09/26/2012 Contact dermititis Nitrofurantoin Rash 09/07/2014 Metformin 04/12/2021 documented as of this encounter (statuses as of 09/13/2023) Medications Medication Sig Dispensed Refills Start Date End Date Status ASPIRIN 81 MG PO TABSIndications:hea rt Take by mouth daily. 0 Active Iron-Vitamin [...] glucose E11.9 100 Strip 5 08/21/2022 Active TaplisterTouch UltraSoft LancetsIndications: Type 2 diabetes mellitus with stage 3a chronic kidney disease, without long-term current use of insulin ([facility]) Use once daily to check glucose E11.9 100 Each 5 08/21/2022 Active Rosuvastatin Calcium 10 MG Oral Tablet (Crestor)Indication s:Dyslipidemia, goal LDL below 100 Take 1 Tablet by mouth in the morning. 90 Tablet 3 09/22/2022 Active Acetaminophen ER 650 MG Oral Tablet Extended Release Take 1 Tablet by mouth every 8 hours as needed. 0 Active Fluticasone-Salmete rol 250-50 MCG/ACT Inhalation Aerosol Powder Breath Activated [...] 02/20/2023 Active Ezetimibe 10 MG Oral Tablet (Zetia)Indications: Dyslipidemia, goal LDL below 70 TAKE ONE TABLET BY MOUTH IN THE MORNING 90 Tablet 3 03/05/2023 Active Tiotropium [place] Monohydrate 18 MCG Inhalation Capsule (Spiriva)Indication s:Moderate persistent asthma without complication Inhale 1 Capsule [...] major depressive disorder without prior episode ([facility]) TAKE 1 - 2 TABLETS BY MOUTH [...] 08/28/2023 Active ALPRAZolam 0.5 MG Oral Tablet (xaNAX)Indications: Anxiety take 1 tablet in the morning and evening if needed for anxiety 60 Tablet 0 08/30/2023 Active Azithromycin 250 MG Oral Tablet (Zithromax) Take 2 tabs by mouth on the first day, then 1 tab daily on days two through five 6 Tablet 0 09/07/2023 09/12/2023 Hospital, Clinic, or Other Facility Administered Medication Ordered Dose Route Frequency Start Date End Date Status vitamin b-12 (Cyanocobalamin) inj 1,000 mcgIndications:Vitamin B12 deficiency 1000 mcg IM [id number] 02/06/2023 01/08/2024 Active documented as of this encounter (statuses as of 09/13/2023) Active Problems Problem Noted Date Diagnosed Date [...] as of this encounter (statuses as of 09/13/2023) Resolved Problems Problem Noted Date Diagnosed Date [...] Taxonomy. Impaired fasting glucose 06/23/200607/2011 LOC PRIM [id number] 04/16/200609/24 LOC PRIM OSTEOARTH-ANKLE 04/16/2006 Sprain of [...] as of this encounter (statuses as of 09/13/2023) Immunizations Name Administration Dates Next Due Pneumococcal [...] Influenza, Split, I IV3, With Preserve, Inj 04/23/2014,04/21/2013,03/25/2012,06/2010,03/25/2010,03/25/2009,04/06/20 08,04/13/2003,04/14/2002,05/20/2001 04/13/2004 Seasonal Influenza, Trivalen t, Adjuvanted, [...] encounter Miscellaneous Notes * Telephone Encounter - Henna Aden LPN - 09/13/2023 11:13 AM EDT I called pt- she declined appt, she states she wants to come in for the urine test and injection. Pt did agree to call on Sunday if she's not feeling any better. * Addendum Note - Lakeisha Ballesteros MD - 09/07/2023 2:42 PM EDT Addended by: LAKEISHA WHEATLEY on: 09/07/2023 02:42 PM Modules accepted: Orders * Telephone Encounter - Lakeisha Ballesteros MD - 09/07/2023 2:41 PM EDT Chart reviewed. Pt seen 08/28/23 for COPD exacerbation. Was already taking amoxicillin, given prednisone. Persistent productive cough. Recommend Azithromycin + follow up appointment next week. * Telephone Encounter - Thea Mccann LPN - 09/07/2023 2:20 PM EDT Patient is aware of Note Below She complete Prednisone Dose on 09/11/23 and using OTC cough meds, but not improving She states she still has productive cough with yellow mucus and Feels Weak Uses [facility] In [place] * Telephone Encounter - Shanell Agarwal MD - 09/07/2023 1:56 PM EDT Pls call the pt Your chest xray is normal - no sign of pneumonia documented in this encounter Plan of Treatment Upcoming Encounters Date Type Department Care Team (Late st Contact Info) Description 09/14/2023 3:00 PM EDT Nurse Only Ancillary [address] [place] [address] Samantha, Nurse [address] [place] [address] 10/16/2023 3:00 PM EDT Office Visit Cardiology [address] [place] [address] Herberth Denny PA-C [address] [place] [address] 12/03/2023 2:00 PM EDT Office Visit Family Medicine [address] [place] [phone] Rosemary Valentine MD [address] [place] [address] [place] [address] 02/01/2024 3:00 PM EDT Nurse Only Ancillary [address] [place] [address] Kateryna, [address] [place] [address] Health Maintenance Due Date Last Done Comments DXA Scan 01/04/2023 01/05/2020, 01/04/2015 COVID-19 Vaccine ( season) 2023 COLONOSCOPY-EVERY 5 YRS AGES 18-100 04/19/2023 04/19/2018, 04/19/2018, 09/29/2014, Additional history exists CKD PHOS USE SMARTSET 97336 07/03/202302/2023, 05/11/2021, 02/05/2020, Additional history exists GFR 07/22/2023 01/19/2023, 02/2023, 10/03/2021, Additional history exists HbA1c 07/22/2023 01/19/2023, 02/2023, 10/03/2021, Additional history exists Albumin/Creatinine Ratio 08/04/2023 023, 05/11/2021, 07/29/2019, Additional history exists CKD HGB USE SMARTSET 92321 01/20/202401/19, 01/19/2023, 07/03/2022, Additional history exists Depression [...] this encounter Medical Devices Implanted Type Area Solar Project Manager Device Identifier Shelf Expiration Date Model / Serial / Lot Lens Intraoc 19.5 - [id number] - [id number] Implanted:Qty: 1 on 03/17/2021 by Migel Dejesus MD at [facility] Left: Eye [employer]OM[employer] 10/22/2025 [id number] / [id number] / [id number] Lens Intraoc 20.0 - [id number] - [id number] Implanted:Qty: 1 on 03/31/2021 by Migel Dejesus MD at [facility] Right: Eye [employer]CH [employer]OMB 12/22/2025 [id number] / [id number] / [id number] documented as of this encounter Advance Directives Healthcare Agents on File Name Relationship Healthcare Agent Relationshi p Communication Mimi Vieyra Adult Child Health Care Repr esentative (appointed verbally by patient or by statute hierarchy) Yanci Adkins Adult Child Health Care Repr esentative (appointed verbally by patient or by statute hierarchy) Care Teams Anode Crew Supervisor Relationship Specialty Start Date End Date Rosemary Valentine MD [address] [place] [address] [place] [phone] PCP - General Family Medicine 09/05/23 documented as of this encounter
--- OUTSIDE RECORDS SUMMARY | 2023-12-02 01:56 | External Medical Summary | Summary of Care ---
Author Name Unknown Organization [facility] Address [address] [place] [address] Phone [phone] Care Team Providers Care Frit Mixer And Burner Name Role Phone Rosemary Valentine MD Primary Care Provide r Encounter Details Date Type Department Care Team (Late st Contact Info) Description 09/14/2023 Orders Only PATIENT PORTAL DO NOT DELETE THIS DEPT USED BY [place] [id number] Allergies Active Allergy Reactions Criticality Noted Date [...] disease, without long-term current use of insulin ([facility]) Use up to 4 times a day E11.9 1 Kit 0 10/03/2021 Active hydroCHLOROthiazide 12.5 MG Oral Tablet (Hydrodiuril) TAKE ONE TABLET BY MOUTH IN THE MORNING 90 Tablet 3 08/17/2022 Active OneTouch Verio In Vitro Strip (Glucose Blood)Indications:Ty pe 2 diabetes mellitus with stage 3a chronic kidney disease, without long-term current use of insulin ([facility]) Use once daily to check glucose E11.9 100 Strip 5 08/21/2022 Active OneTouch UltraSoft LancetsIndications:T ype 2 diabetes mellitus with stage 3a chronic kidney disease, without long-term current use of insulin ([facility]) Use once daily to check [...] disease, without long-term current use of insulin ([facility]) Inject 0.75 mg under the skin once a week. (on Mondays) 6 mL 3 02/20/2023 Active Ezetimibe 10 MG Oral Tablet (Zetia)Indications:D yslipidemia, goal LDL below 70 TAKE ONE TABLET BY MOUTH IN THE MORNING 90 Tablet 3 03/05/2023 Active Tiotropium [place] Monohydrate 18 MCG Inhalation Capsule (Spiriva)Indications :Moderate [...] 1,000 mcgIndications:Vitamin B12 deficiency 1000 mcg IM [id number] 02/06/2023 01/08/2024 Active documented as of this [...] Taxonomy. Impaired fasting glucose 06/23/200607/2011 LOC PRIM [id number] 04/16/200609/24 LOC PRIM OSTEOARTH-ANKLE 04/16/2006 Sprain of [...] 09/14/2023 3:00 PM EDT Nurse Only Ancillary [address] [place] [address] [place] Nurse [address] [place] [address] 10/16/2023 3:00 PM EDT Office Visit Cardiology [address] [place] [address] Herberth Denny PA-C [address] [place] [address] 12/03/2023 2:00 PM EDT Office Visit Family Medicine [address] [place] [phone] Rosemary Valentine MD [address] [place] [address] [place] [address] 02/01/2024 3:00 PM EDT Nurse Only Ancillary [address] [place] [address] [place], Nurse Annual [facility]ness [address] [place] [address] [place] [address] Health Maintenance Due Date Last Done Comments DXA Scan 01/04/2023 01/05/2020, 01/04/2015 COVID-19 Vaccine ( season) 2023 COLONOSCOPY-EVERY 5 YRS AGES 18-100 04/19/2023 04/19/2018, 04/19/2018, 09/29/2014, Additional history exists CKD PHOS USE SMARTSET 30065 07/03/202302/2023, 05/11/2021, 02/05/2020, Additional history exists GFR 07/22/2023 01/19/2023, 0 02/2023, 10/03/2021, Additional history exists HbA1c 07/22/2023 01/19/2023, 0 02/2023, 10/03/2021, Additional history exists Albumin/Creatinine Ratio 08/04/20232 023, 05/11/2021, 07/29/2019, Additional history exists CKD HGB USE SMARTSET 85357 01/20/202401/19, 01/19/2023, 07/03/2022, Additional history exists Depression [...] encounter Medical Devices Implanted Type Area Manufacturing Process Technician Device Identifier Shelf Expiration Date Model / Serial / Lot Lens Intraoc 19.5 - [id number] - [id number] Implanted:Qty: 1 on 03/17/2021 by Migel Dejesus MD at OR [facility] Left: Eye [employer]OM[employer] 10/22/2025 [id number] / [id number] / [id number] Lens Intraoc 20.0 - [id number] - [id number] Implanted:Qty: 1 on 03/31/2021 by Migel Dejesus MD at OR [facility] Right: Eye [employer]OM[employer] 12/22/2025 [id number] / [id number] / [id number] documented as of this encounter Advance Directives Healthcare Agents on File Name Relationship Healthcare Agent Relationshi p Communication Mimi Vieyra Adult Child Health Care Repr esentative (appointed verbally by patient or by statute hierarchy) Yanci Adkins Adult Child Health Care Repr esentative (appointed verbally by patient or by statute hierarchy) Care Teams Frit Mixer And Burner Relationship Specialty Start Date End Date Rosemary Valentine MD [address] [place] [address] [place] [phone] PCP - General Family Medicine 09/05/23 documented as of this encounter
--- OUTSIDE RECORDS SUMMARY | 2023-12-02 01:56 | External Medical Summary | Summary of Care ---
Author Name Unknown Organization [facility] Address [address] [place] [address] Phone [phone] Care Team Providers Care Motor Setter Name Role Phone Rosemary Valentine MD Primary Care Provide r Reason for Visit * Reason Comments Outpatient Testing Encounter Details Date Type Department Care Team (Late st Contact Info) Description 09/14/2023 3:20 PM EDT Laboratory Laboratory [address] [place] [phone] [address] [place] [address] Suspected urinary tract infection Allergies Active Allergy [...] glucose E11.9 100 Strip 5 08/21/2022 Active The LionsTouch UltraSoft LancetsIndications:T ype 2 diabetes mellitus with [...] MORNING 90 Tablet 3 03/05/2023 Active Tiotropium [place] Monohydrate 18 MCG Inhalation Capsule (Spiriva)Indications :Moderate [...] 1,000 mcgIndications:Vitamin B12 deficiency 1000 mcg IM [id number] 02/06/2023 01/08/2024 Active documented as of this [...] Taxonomy. Impaired fasting glucose 06/23/200607/2011 LOC PRIM [id number] 04/16/200609/24 LOC PRIM OSTEOARTH-ANKLE 04/16/2006 Sprain of [...] 10/16/2023 3:00 PM EDT Office Visit Cardiology [address] [place] [address] Herberth Denny PA-C [address] [place] [address] 12/03/2023 2:00 PM EDT Office Visit Family Medicine [address] [place] [phone] Rosemary Valentine MD [address] [place] [address] [place] [address] 02/01/2024 3:00 PM EDT Nurse Only Ancillary [address] [place] [address] [place], Nurse Annual Wellness [address] [place] [address] [place] [address] Pending Results Name Type Priority Associated Diagnoses [...] Additional history exists CKD PHOS USE SMARTSET 33752 07/03/20230 02/2023, 05/11/2021, 02/05/2020, Additional history exists GFR 07/22/2023 01/19/2023, 0 02/2023, 10/03/2021, Additional history exists HbA1c 07/22/2023 01/19/2023, 010 02/2023, 10/03/2021, Additional history exists Albumin/Creatinine Ratio 08/04/20232 023, 05/11/2021, 07/29/2019, Additional history exists CKD HGB USE SMARTSET 33311 01/20/202401/19, 01/19/2023, 07/03/2022, Additional history exists Depression [...] this encounter Medical Devices Implanted Type Area Non Profit Job Titles Device Identifier Shelf Expiration Date Model / Serial / Lot Lens Intraoc 19.5 - [id number] - [id number] Implanted:Qty: 1 on 03/17/2021 by Migel Dejesus MD at OR [facility] Left: Eye [employer] 10/22/2025 [id number] / [id number] / [id number] Lens Intraoc 20.0 - [id number] - [id number] Implanted:Qty: 1 on 03/31/2021 by Migel Dejesus MD at OR [facility] Right: Eye [employer]CH [employer]OM[employer] 12/22/2025 [id number] / [id number] / [id number] documented as of this encounter Visit Diagnoses Diagnosis Suspected urinary tract infection documented in this encounter Advance Directives Healthcare Agents on File Name Relationship [facility] Mimi Vieyra Adult Child Health Care Repr esentative (appointed verbally by patient or by statute hierarchy) Yanci Adkins Adult Child Health Care Repr esentative (appointed verbally by patient or by statute hierarchy) Care Teams Motor Setter Relationship Specialty Start Date End Date Rosemary Valentine MD [address] [place] [address] [place] [address] PCP - General Family Medicine 09/05/23 documented as of this encounter
--- OUTSIDE RECORDS SUMMARY | 2023-12-02 01:56 | External Medical Summary ---
Author Name Unknown Address Unknown Organization K01:[facility] [place] - [address] [facility] [address] Laboratory Report Ordering Provider Test Date Status TESS QUIÑONESRashaun 09/14/2023 14:54:36 Final <10,000 colonies/ml mixed no rmal dat Observation Date Value Abnormality Reference (Units ) Status Bacteria identified in Specimen by Culture 09/14/2023 14:54:36 [id number]^ESCHE RICHIA COLI Abnormal Final >100,000 colonies/mL Escheri sanchez coli Performing Location [facility] [place] - [address] [facility] [address] Ordering Provider Test Date Status JARROD QUIÑONESSHAYNE 09/14/2023 14:54:36 Final Observation Date Value Abnormality Reference (Units ) Status Ampicillin 09/14/2023 14:54:36 4 Susceptible Final Cefazolin 09/14/2023 14:54:36 <=4 Susceptible Final Cefepime susceptibility 09/14/2023 14:54:36 <=1 Susceptible Final Ceftriaxone suceptibility 09/14/2023 14:54:36 <=1 Susceptible Final Ciprofloxacin 09/14/2023 14:54:36 <=0.25 Susceptible Final Due to serious side effects, the FDA has advised against using Ciprofloxacin to treat uncomplicated UTIs and respiratory tract infections unless there are no alternative treatment options. Gentamicin susceptibility 09/14/2023 14:54:36 <=1 Susc eptible Final Nitrofurantoin susceptibility 09/14/2023 14:54:36 <=16 Susceptible Final Piperacillin + Tazobactamsusceptibility 09/14/2023 14:54:36 <=4 Susceptible Final TMP-SMZ susceptibility 09/14/2023 14:54:36 <=20 Suscept ible Final Test: Culture, Urine, Quanti tative
Specimen Source: Urine, Clean Catch
Specimen Type: Urine
Specimen Date: 09/14/2023 2:54 PM
Result Date: 09/17/2023 8:06 AM
Result Status: Final result
Abnormal: Yes
Resulting Lab: [facility]
[address]
[facility] [address]

CULTURE

>100,000 colonies/mL Escherichia coli (Abnormal)

<10,000 colonies/ml mixed normal dat

SUSCEPTIBILITY

Escherichia coli
METHOD MICROBROTH
DILUTIONS

AMPICILLIN 4 Susceptible
CEFAZOLIN <=4 Susceptible
CEFEPIME <=1 Susceptible
CEFTRIAXONE <=1 Susceptible
CIPROFLOXACIN <=0.25 Susceptible
GENTAMICIN <=1 Susceptible
NITROFURANTOIN <=16 Susceptible
PIPERACILLIN TAZOBACTAM <=4 Susceptible
TRIMETH/SULFAMETHOXAZOLE <=20 Susceptible

null Performing Location [facility] [place] [place] - [address] [facility] [address]
--- OUTSIDE RECORDS SUMMARY | 2023-12-02 01:57 | External Medical Summary | Summary of Care ---
Author Name Unknown Organization [facility] Address [address] [place] [address] Phone [phone] Care Team Providers Care Product Planner Name Role Phone Rosemary Valentine MD Primary Care Provide r Reason for Visit * Reason Onset Date Comments Appointment 09/05/2023 Encounter Details Date Type Department Care Team (Late st Contact Info) Description 09/05/2023 Telephone Family Medicine [address] [phone] Rosemary Valentine MD [address] [place], [place] [address] [address] Appointment Allergies Active Allergy Reactions Criticality Noted Date Comments Codeine Nausea/vomiting 08/15/2011 Propoxyphene N-Acetaminophen Nausea/vomiting Low 08/24/2008 Iodinated Contrast Media Hives 02/06/2023 Iodine Hives 01/08/2001 Latex 09/26/2012 Contact dermititis Nitrofurantoin Rash 09/07/2014 Metformin 04/12/2021 documented as of this encounter (statuses as of 09/07/2023) Medications Medication Sig Dispensed Refills Start Date [...] glucose E11.9 100 Strip 5 08/21/2022 Active YOU On Demand HoldingsTouch UltraSoft LancetsIndications:T ype 2 diabetes mellitus with stage 3a chronic kidney disease, without long-term current use of insulin ([facility]) Use once daily to check glucose [...] MORNING 90 Tablet 3 03/05/2023 Active Tiotropium [place] Monohydrate 18 MCG Inhalation Capsule (Spiriva)Indications :Moderate [...] 1,000 mcgIndications:Vitamin B12 deficiency 1000 mcg IM [id number] 02/06/2023 01/08/2024 Active documented as of this encounter (statuses as of 09/07/2023) Active Problems Problem Noted Date Diagnosed Date [...] as of this encounter (statuses as of 09/07/2023) Resolved Problems Problem Noted Date Diagnosed Date [...] Taxonomy. Impaired fasting glucose 06/23/200607/2011 LOC PRIM [id number] 04/16/200609/24 LOC PRIM OSTEOARTH-ANKLE 04/16/2006 Sprain of [...] as of this encounter (statuses as of 09/07/2023) Immunizations Name Administration Dates Next Due Pneumococcal [...] Influenza, Split, I IV3, With Preserve, Inj 04/23/2014,04/21/2013,03/25/2012,1006/2010,03/25/2010,03/25/2009,04/06/20 08,04/13/2003,04/14/2002,05/20/2001 04/13/2004 Seasonal Influenza, Trivalen t, Adjuvanted, [...] encounter Miscellaneous Notes * Telephone Encounter - Terri Romero OSA - 09/06/2023 8:57 AM EDT Pt only wants to speak to Rina, offered to make appt for xray, pt declined want to speak with Rina . * Telephone Encounter - Hyacinth Woody OSA - 09/06/2023 8:08 AM EDT Pt notified that Dr. Agarwal would like her to get a chest xray and that she can come in any time to get that. * Telephone Encounter - Shanell Agarwal MD - 09/06/2023 7:38 AM EDT I would like to obtain a CXR to evaluate the cough - will determine the tx depending on the CXR result * Telephone Encounter - Leonor Dominguez OSA - 09/05/2023 3:57 PM EDT 1. When were you seen for this problem? 3.5.24 2. What provider did you see for this problem? Dr Agarwal 3. What medications are you presently taking? Pt finished the prednisone that was prescribed 4. What is it that is no better? Please refer to Call Details. * Telephone Encounter - Yasmin Raymundo RN - 09/05/2023 2:54 PM EDT We have no openings with anyone this week, and you don't have any for awhile, please advise * Telephone Encounter - Gretchen Archibald OSA - 09/05/2023 9:29 AM EDT No Appointments Available Patient declined appointments?: Yes What Visit Type is needed? Acute If Acute Visit Type is needed, were surrounding clinics offered to patient (Yes/No)? No, explain Patient wants to see Karenaxel Evanradha only Was patient offered appointments with other available providers (Yes/No)? No, explain Patient wantsto see Karenaxel Shanell only See Call Details? (Yes or No): Patient had an appointment on 08/28/2023 and her condition has gotten progressively worse since then. Please call her back and follow up. documented in this encounter Plan of Treatment Upcoming Encounters Date Type Department Care Team (Late st Contact Info) Description 09/14/2023 3:00 PM EDT Nurse Only Ancillary [address] [place] [address] Samantha, Nurse [address] [place] [address] 09/18/2023 4:00 PM EDT Imaging Radiology, [address] [place] [address] 10/16/2023 3:00 PM EDT Office Visit Cardiology [address] [place] [address] Herberth Denny PA-C [address] [place] [address] 12/03/2023 2:00 PM EDT Office Visit Family Medicine [address] [place] [phone] Rosemary Valentine MD [address] [place] [address] [place] [address] 02/01/2024 3:00 PM EDT Nurse Only Ancillary [address] [place] [address] Nurse Kateryna [facility] [address] [place] [address] [place] [address] Health Maintenance Due Date Last Done Comments DXA Scan 01/04/2023 01/05/2020, 01/04/2015 COVID-19 Vaccine (24 season) 2023 COLONOSCOPY-EVERY 5 YRS AGES 18-100 04/19/2023 04/19/2018, 04/19/2018, 09/29/2014, Additional history exists CKD PHOS USE SMARTSET 68299 07/03/20230 02/2023, 05/11/2021, 02/05/2020, Additional history exists GFR 07/22/2023 01/19/2023, 0 02/2023, 10/03/2021, Additional history exists HbA1c 07/22/2023 01/19/2023, 0 02/2023, 10/03/2021, Additional history exists Albumin/Creatinine Ratio 08/04/2023 023, 05/11/2021, 07/29/2019, Additional history exists CKD HGB USE SMARTSET 05738 01/20/202401/19, 01/19/2023, 07/03/2022, Additional history exists Depression [...] encounter Medical Devices Implanted Type Area Supervisor Poultry Processing Device Identifier Shelf Expiration Date Model / Serial / Lot Lens Intraoc 19.5 - [id number] - [id number] Implanted:Qty: 1 on 03/17/2021 by Migel Dejesus MD at OR [facility] Left: Eye BAUSCH & LOMB 10/22/2025 [id number] / [id number] / [id number] Lens Intraoc 20.0 - [id number] - [id number] Implanted:Qty: 1 on 03/31/2021 by Migel Dejesus MD at OR [facility] Right: Eye BAUSCH & LOMB 12/22/2025 [id number] / [id number] / [id number] documented as of this encounter Results * XR CHEST 2 VIEWS (09/06/2023 2:49 PM EDT) Anatomical Region Laterality Modality Chest Computed Radiogr aphy 09/06/2023 9:50 PM EDT Impressions 09/06/2023 9:47 PM EDT IMPRESSION No active disease. Narrative 09/06/2023 9:47 PM EDT EXAM XR CHEST 2 VIEWS - 09/06/2023 2:49 pm HISTORY "persistent cough" TECHNIQUE Frontal and lateral views of the chest were obtained. COMPARISON 04/12/2021 FINDINGS The lungs are clear. There is no pleural effusion or pneumothorax. The cardiomediastinal silhouette is within normal limits. Cholecystectomy clips. Procedure Note Cristian Bellamy MD - 09/06/2023 EXAM XR CHEST 2 VIEWS - 09/06/2023 2:49 pm HISTORY "persistent cough" TECHNIQUE Frontal and lateral views of the chest were obtained. COMPARISON 04/12/2021 FINDINGS The lungs are clear. There is no pleural effusion or pneumothorax. Thecardiomediastinal silhouette is within normal limits. Cholecystectomy clips. IMPRESSION IMPRESSION No active disease. Shanell Agarwal MD RADIOLOGY ([facility]) documented in this encounter Visit Diagnoses Diagnosis SOB (shortness of breath)- Primary Shortness of breath Acute cough SOB (shortness of breath) Shortness of breath Acute cough documented in this encounter Advance Directives Healthcare Agents on File Name Relationship Healthcare Agent Relationshi p Communication Mimi Vieyra Adult Child Health Care Repr esentative (appointed verbally by patient or by statute hierarchy) Yanci Adkins Adult Child Health Care Repr esentative (appointed verbally by patient or by statute hierarchy) Care Teams Product Planner Relationship Specialty Start Date End Date Rosemary Valentine MD [address] [place] [address] [place] [address] PCP - General Family Medicine 09/05/23 documented as of this encounter
--- OUTSIDE RECORDS SUMMARY | 2023-12-02 01:57 | External Medical Summary | Summary of Care ---
Author Name Unknown Organization [facility] Address [address] [place] [address] Phone [phone] Care Team Providers Care Agricultural And Forestry Supervisor Name Role Phone Rosemary Valentine MD Primary Care Provide r Reason for Visit * Reason Onset Date Comments Appointment 09/05/2023 Encounter Details Date Type Department Care Team (Late st Contact Info) Description 09/05/2023 Telephone Family Medicine [address] [phone] Rosemary Valentine MD [address] [place], [place] [address] [address] Appointment Allergies Active Allergy Reactions Criticality Noted Date Comments Codeine Nausea/vomiting 08/15/2011 Propoxyphene N-Acetaminophen Nausea/vomiting Low 08/24/2008 Iodinated Contrast Media Hives 02/06/2023 Iodine Hives 01/08/2001 Latex 09/26/2012 Contact dermititis Nitrofurantoin Rash 09/07/2014 Metformin 04/12/2021 documented as of this encounter (statuses as of 09/06/2023) Medications Medication Sig Dispensed Refills Start Date [...] glucose E11.9 100 Strip 5 08/21/2022 Active DistraTouch UltraSoft LancetsIndications:T ype 2 diabetes mellitus with [...] MORNING 90 Tablet 3 03/05/2023 Active Tiotropium [place] Monohydrate 18 MCG Inhalation Capsule (Spiriva)Indications :Moderate [...] 1,000 mcgIndications:Vitamin B12 deficiency 1000 mcg IM [id number] 02/06/2023 01/08/2024 Active documented as of this encounter (statuses as of 09/06/2023) Active Problems Problem Noted Date Diagnosed Date [...] as of this encounter (statuses as of 09/06/2023) Resolved Problems Problem Noted Date Diagnosed Date [...] Taxonomy. Impaired fasting glucose 06/23/200607/2011 LOC PRIM [id number] 04/16/200609/24 LOC PRIM OSTEOARTH-ANKLE 04/16/2006 Sprain of [...] as of this encounter (statuses as of 09/06/2023) Immunizations Name Administration Dates Next Due Pneumococcal [...] Miscellaneous Notes * Telephone Encounter - Hyacinth Woody, GAURAV - 09/06/2023 8:08 AM EDT Pt notified [...] (Yes/No)? No, explain Patient wants to see Shanell Agarwal only Was patient offered appointments with other available providers (Yes/No)? No, explain Patient wantsto see Shanell Agarwal only See Call Details? (Yes or No): Patient had an appointment on 08/28/2023 and her condition has gotten progressively worse since then. Please call her back and follow up. documented in this encounter Plan of Treatment Upcoming Encounters Date Type Department Care Team (Late st Contact Info) Description 09/07/2023 3:00 PM EDT Nurse Only Ancillary [address] [place] [address] Samantha, Nurse [address] [place] [address] 09/18/2023 4:00 PM EDT Imaging Radiology, [address] [place] [address] 10/16/2023 3:00 PM EDT Office Visit Cardiology [address] [place] [address] Herberth Denny PA-Nithin [address] [place] [address] 12/03/2023 2:00 PM EDT Office Visit Family Medicine [address] [place] [phone] Rosemary Valentine MD [address] [place] [address] [place] [address] 02/01/2024 3:00 PM EDT Nurse Only Ancillary [address] [place] [address] Nurse Kateryna [facility] [address] [place] [address] [place] [address] Scheduled Orders Name Type Priority Associated Diagnoses Orde r Schedule XR CHEST 2 VIEWS Medical Imaging Routine SOB (shortness of breath) Acute cough Expected: 09/06/2023, Expires: 10/06/2024 Health Maintenance Due Date Last Done Comments DXA Scan 01/04/2023 01/05/2020, 01/04/2015 COVID-19 Vaccine (2022- season) 2023 COLONOSCOPY-EVERY 5 YRS AGES 18-100 04/19/2023 04/19/2018, 04/19/2018, 09/29/2014, Additional history exists CKD PHOS USE SMARTSET 59332 07/03/20230 02/2023, 05/11/2021, 02/05/2020, Additional history exists GFR 07/22/2023 01/19/2023, 0 02/2023, 10/03/2021, Additional history exists HbA1c 07/22/2023 01/19/2023, 0 02/2023, 10/03/2021, Additional history exists Albumin/Creatinine Ratio 08/04/2023 023, 05/11/2021, 07/29/2019, Additional history exists CKD HGB USE SMARTSET 00333 01/20/202401/19, 01/19/2023, 07/03/2022, Additional history exists Depression [...] encounter Medical Devices Implanted Type Area Supervisor Mails Device Identifier Shelf Expiration Date Model / Serial / Lot Lens Intraoc 19.5 - [id number] - [id number] Implanted:Qty: 1 on 03/17/2021 by Migel Dejesus MD at OR [facility] Left: Eye BAUSCH & LOMB 10/22/2025 [id number] / [id number] / [id number] Lens Intraoc 20.0 - [id number] - [id number] Implanted:Qty: 1 on 03/31/2021 by Migel Dejesus MD at OR [facility] Right: Eye BAUSCH & LOMB 12/22/2025 [id number] / [id number] / [id number] documented as of this encounter Visit Diagnoses Diagnosis SOB (shortness of breath)- Primary Shortness of breath Acute cough documented in this encounter Advance Directives Healthcare Agents on File Name Relationship Healthcare Agent Relationshi p Communication Mimi Vieyra Adult Child Health Care Repr esentative (appointed verbally by patient or by statute hierarchy) Yanci Adkins Adult Child Health Care Repr esentative (appointed verbally by patient or by statute hierarchy) Care Teams Agricultural And Forestry Supervisor Relationship Specialty Start Date End Date Rosemary Valentine MD [address] [place] [address] [place] [address] PCP - General Family Medicine 09/05/23 documented as of this encounter
--- OUTSIDE RECORDS SUMMARY | 2023-12-02 01:57 | External Medical Summary | Summary of Care ---
Author Name Unknown Organization [facility] Address [address] [place] [address] Phone [phone] Care Team Providers Care Bell Person Name Role Phone Rosemary Valentine MD Primary Care Provide r Reason for Visit * Reason Onset Date Comments Test Results 09/07/2023 Encounter Details Date Type Department Care Team (Late st Contact Info) Description 09/07/2023 Telephone Family Medicine [address] [phone] Shanell Agarwal MD [address] [place] [address] [place] [address] Test Results Allergies Active Allergy [...] glucose E11.9 100 Strip 5 08/21/2022 Active ZeppelinTouch UltraSoft LancetsIndications: Type 2 diabetes mellitus with stage 3a chronic kidney disease, without long-term current use of insulin ([facility]) Use once daily to check glucose [...] MORNING 90 Tablet 3 03/05/2023 Active Tiotropium [place] Monohydrate 18 MCG Inhalation Capsule (Spiriva)Indication s:Moderate [...] of major depressive disorder without prior episode ([facility]) TAKE 1 - 2 TABLETS BY [...] through five 6 Tablet 0 09/07/2023 09/12/2023 Active Hospital, Clinic, or Other Facility Administered Medication Ordered Dose Route Frequency Start Date End Date Status vitamin b-12 (Cyanocobalamin) inj 1,000 mcgIndications:Vitamin B12 deficiency 1000 mcg IM [id number] 02/06/2023 01/08/2024 Active documented as of this [...] Taxonomy. Impaired fasting glucose 06/23/200607/2011 LOC PRIM [id number] 04/16/200609/24 LOC PRIM OSTEOARTH-ANKLE 04/16/2006 Sprain of [...] encounter Miscellaneous Notes * Addendum Note - Lakeisha Ballesteros MD [...] Note Below She complete Prednisone Dose on y 09/11/23 and using OTC cough meds, but not improving She states she still has productive cough with yellow mucus and Feels Weak Uses [facility] In [place] * Telephone Encounter - Shanell Agarwal MD - 09/07/2023 1:56 PM EDT Pls call the pt Your chest xray is normal - no sign of pneumonia documented in this encounter Plan of Treatment Upcoming Encounters Date Type Department Care Team (Late st Contact Info) Description 09/14/2023 3:00 PM EDT Nurse Only Ancillary [address] [place] [address] [place], Nurse [address] [place] [address] 09/18/2023 4:00 PM EDT Imaging Radiology, [address] [place] [address] 10/16/2023 3:00 PM EDT Office Visit Cardiology [address] [place] [address] Herberth Denny PA-C [address] [place] [address] 12/03/2023 2:00 PM EDT Office Visit Family Medicine [address] [place] [phone] Rosemary Valentine MD [address] [place] [address] [place] [address] 02/01/2024 3:00 PM EDT Nurse Only Ancillary [address] [place] [address] [place], Nurse Annual Wellness [address] [place] [address] [place] [address] Health Maintenance Due Date Last Done Comments DXA Scan 01/04/2023 01/05/2020, 01/04/2015 COVID-19 Vaccine ( season) 2023 COLONOSCOPY-EVERY 5 YRS AGES 18-100 04/19/2023 04/19/2018, 04/19/2018, 09/29/2014, Additional history exists CKD PHOS USE SMARTSET 75206 07/03/202302/2023, 05/11/2021, 02/05/2020, Additional history exists GFR 07/22/2023 01/19/2023, 0 02/2023, 10/03/2021, Additional history exists HbA1c 07/22/2023 01/19/2023, 02/2023, 10/03/2021, Additional history exists Albumin/Creatinine Ratio 08/04/2023 023, 05/11/2021, 07/29/2019, Additional history exists CKD HGB USE SMARTSET 48767 01/20/202401/19, 01/19/2023, 07/03/2022, Additional history exists Depression [...] this encounter Medical Devices Implanted Type Area Gaming Dealer Device Identifier Shelf Expiration Date Model / Serial / Lot Lens Intraoc 19.5 - [id number] - [id number] Implanted:Qty: 1 on 03/17/2021 by Migel Dejesus MD at OR [facility] Left: Eye BAUSCH & LOMB 10/22/2025 [id number] / [id number] / [id number] Lens Intraoc 20.0 - [id number] - [id number] Implanted:Qty: 1 on 03/31/2021 by Migel Dejesus MD at OR [facility] Right: Eye BAUSCH & LOMB 12/22/2025 [id number] / [id number] / [id number] documented as of this encounter Advance Directives Healthcare Agents on File Name Relationship Healthcare Agent Relationshi p Communication Mimi Vieyra Adult Child Health Care Repr esentative (appointed verbally by patient or by statute hierarchy) Yanci Adkins Adult Child Health Care Repr esentative (appointed verbally by patient or by statute hierarchy) Care Teams Bell Person Relationship Specialty Start Date End Date Rosemary Valentine MD [address] [place] [address] [place] [phone] PCP - General Family Medicine 09/05/23 documented as of this encounter
--- OUTSIDE RECORDS SUMMARY | 2023-12-02 01:57 | External Medical Summary | Summary of Care ---
Author Name Unknown Organization [facility] Address [address] [place] [address] Phone [phone] Care Team Providers Care Wireless Sales Expert Name Role Phone Rosemary Valentine MD Primary Care Provide r Reason for Visit * Reason Onset Date Comments Appointment 09/05/2023 Encounter Details Date Type Department Care Team (Late st Contact Info) Description 09/05/2023 Telephone Family Medicine [address] [address] Rosemary Valentine MD [address] [place], [place] [address] [address] Appointment Allergies Active Allergy Reactions Criticality [...] glucose E11.9 100 Strip 5 08/21/2022 Active WellpepperTouch UltraSoft LancetsIndications:T ype 2 diabetes mellitus with stage 3a chronic kidney disease, without long-term current use of insulin ([facility]) Use once daily to check [...] MORNING 90 Tablet 3 03/05/2023 Active Tiotropium [place] Monohydrate 18 MCG Inhalation Capsule (Spiriva)Indications :Moderate [...] 1,000 mcgIndications:Vitamin B12 deficiency 1000 mcg IM [id number] 02/06/2023 01/08/2024 Active documented as of this [...] Taxonomy. Impaired fasting glucose 06/23/200607/2011 LOC PRIM [id number] 04/16/200609/24 LOC PRIM OSTEOARTH-ANKLE 04/16/2006 Sprain of [...] (Yes/No)? No, explain Patient wants to see Danelleseth Shanell only Was patient offered appointments with other [...] 09/07/2023 3:00 PM EDT Nurse Only Ancillary [address] [place] [address] Sam[place], Nurse [address] [place] [address] 09/18/2023 4:00 PM EDT Imaging Radiology, [address] [place] [address] 10/16/2023 3:00 PM EDT Office Visit Cardiology [address] [place] [address] Herberth Denny PA-C [address] [facility] [place] [address] 12/03/2023 2:00 PM EDT Office Visit Family Medicine [address] [place] [phone] Rosemary Valentine MD [address] [place] [address] [place] [address] 02/01/2024 3:00 PM EDT Nurse Only Ancillary [address] [place] [address] Nurse Kateryna [address] [place] [address] Scheduled Orders Name Type Priority Associated Diagnoses Orde r Schedule XR CHEST 2 VIEWS Medical Imaging Routine SOB (shortness of breath) Acute cough Expected: 09/06/2023, Expires: 10/06/2024 Health Maintenance Due Date Last Done Comments DXA Scan 01/04/2023 01/05/2020, 01/04/2015 COVID-19 Vaccine ( season) 2023 COLONOSCOPY-EVERY 5 YRS AGES 18-100 04/19/2023 04/19/2018, 04/19/2018, 09/29/2014, Additional history exists CKD PHOS USE SMARTSET 75138 07/03/20230 02/2023, 05/11/2021, 02/05/2020, Additional history exists GFR 07/22/2023 01/19/2023, 0 02/2023, 10/03/2021, Additional history exists HbA1c 07/22/2023 01/19/2023, 0 02/2023, 10/03/2021, Additional history exists Albumin/Creatinine Ratio 08/04/2023 023, 05/11/2021, 07/29/2019, Additional history exists CKD HGB USE SMARTSET 30893 01/20/202401/19, 01/19/2023, 07/03/2022, Additional history exists Depression [...] this encounter Medical Devices Implanted Type Area Resident Buyer Device Identifier Shelf Expiration Date Model / Serial / Lot Lens Intraoc 19.5 - [id number] - [id number] Implanted:Qty: 1 on 03/17/2021 by Migel Dejesus MD at OR [facility] Left: Eye BAUSCH [employer] LOMB 10/22/2025 [id number] / [id number] / [id number] Lens Intraoc 20.0 - [id number] - [id number] Implanted:Qty: 1 on 03/31/2021 by Migel Dejesus MD at OR [facility] Right: Eye BAUSCH & LOMB 12/22/2025 [id number] / [id number] / [id number] documented as of this encounter Visit Diagnoses [...] patient or by statute hierarchy) Care Teams Wireless Sales Expert Relationship Specialty Start Date End Date Rosemary Valentine MD [address] [place] [address] [place] [address] PCP - General Family Medicine 09/05/23 documented as of this encounter
--- OUTSIDE RECORDS SUMMARY | 2023-12-02 01:57 | External Medical Summary | Summary of Care ---
Author Name Unknown Organization [facility] Address [address] [place] [address] Phone [phone] Care Team Providers Care Window Repairer Name Role Phone Rosemary Valentine MD Primary Care Provide r Reason for Visit * Reason Onset Date Comments Advice 09/13/2023 Patient's daught er, Mimi called. She ask if she could draft roller picker a urine sample cup when she brings her mother in for her B-12 shot tomorrow. Encounter Details Date Type Department Care Team (Late st Contact Info) Description 09/13/2023 Telephone Family Medicine [address] [phone] Rosemary Valentine MD [address] [place] [address] [place] [phone] Advice (Patient's daughter, Mimi called... Allergies Active Allergy Reactions Criticality Noted Date [...] MORNING 90 Tablet 3 03/05/2023 Active Tiotropium [place] Monohydrate 18 MCG Inhalation Capsule (Spiriva)Indications :Moderate [...] 1,000 mcgIndications:Vitamin B12 deficiency 1000 mcg IM [id number] 02/06/2023 01/08/2024 Active documented as of this [...] Taxonomy. Impaired fasting glucose 06/23/200607/2011 LOC PRIM [id number] 04/16/200609/24 LOC PRIM OSTEOARTH-ANKLE 04/16/2006 Sprain of [...] encounter Miscellaneous Notes * Telephone Encounter - Sergio Vasques, GAURAV - 09/13/2023 8:08 AM EDT Patient's daughter, Mimi called. She ask if she could draft roller picker a urine sample cup when she bringsher mother in for her B-12 shot tomorrow. I told her that I didn't see why not. Mimi ask me to call over to the office and ask a nurse to make sure. I called over to the office and spoke to a Marissa and she verified my answer. documented in this encounter Plan of Treatment Upcoming Encounters Date Type Department Care Team (Late st Contact Info) Description 09/14/2023 3:00 PM EDT Nurse Only Ancillary [address] [place] [address] Nurse Samantha [address] [place] [address] 09/18/2023 4:00 PM EDT Imaging Radiology, [address] [place] [address] 10/16/2023 3:00 PM EDT Office Visit Cardiology [address] [place] [address] Herberth Denny PA-C [address] [place] [address] 12/03/2023 2:00 PM EDT Office Visit Family Medicine [address] [place] [phone] Rosemary Valentine MD [address] [place] [address] [place] [address] 02/01/2024 3:00 PM EDT Nurse Only Ancillary [address] [place] [address] Nurse Kateryna Annual Wellness [address] [place] [address] [place] [address] Health Maintenance Due Date Last Done Comments DXA Scan 01/04/2023 01/05/2020, 01/04/2015 COVID-19 Vaccine (2022-24 season) 2023 COLONOSCOPY-EVERY 5 YRS AGES 18-100 04/19/2023 04/19/2018, 04/19/2018, 09/29/2014, Additional history exists CKD PHOS USE SMARTSET 22874 07/03/20230 02/2023, 05/11/2021, 02/05/2020, Additional history exists GFR 07/22/2023 01/19/2023, 0 02/2023, 10/03/2021, Additional history exists HbA1c 07/22/2023 01/19/2023, 0 02/2023, 10/03/2021, Additional history exists Albumin/Creatinine Ratio 08/04/2023 023, 05/11/2021, 07/29/2019, Additional history exists CKD HGB USE SMARTSET 32989 01/20/202401/19, 01/19/2023, 07/03/2022, Additional history exists Depression [...] this encounter Medical Devices Implanted Type Area Nurse Transitional Device Identifier Shelf Expiration Date Model / Serial / Lot Lens Intraoc 19.5 - [id number] - [id number] Implanted:Qty: 1 on 03/17/2021 by Migel Dejesus MD at OR [facility] Left: Eye [employer]OM[employer] 10/22/2025 [id number] / [id number] Lens Intraoc 20.0 - [id number] - [id number] Implanted:Qty: 1 on 03/31/2021 by Migel Dejesus MD at OR [facility] Right: Eye [employer]CH [employer] LOMB 12/22/2025 [id number] / [id number] / [id number] documented as of this encounter Advance Directives Healthcare Agents on File Name Relationship Healthcare Agent Relationshi p Communication Mimi Vieyra Adult Child Health Care Repr esentative (appointed verbally by patient or by statute hierarchy) Yanci Adkins Adult Child Health Care Repr esentative (appointed verbally by patient or by statute hierarchy) Care Teams Window Repairer Relationship Specialty Start Date End Date Rosemary Valentine MD [address] [place] [address] [place] [address] PCP - General Family Medicine 09/05/23 documented as of this encounter
--- OUTSIDE RECORDS SUMMARY | 2023-12-02 01:57 | External Medical Summary | Summary of Care ---
Author Name Unknown Organization [facility] Address [address] [place] [address] Phone [phone] Care Team Providers Care Machine Maintenance Servicer Name Role Phone Rosemary Valentine MD Primary Care Provide r Reason for Visit * Reason Onset Date Comments Test Results 09/07/2023 Encounter Details Date Type Department Care Team (Late st Contact Info) Description 09/07/2023 Telephone Family Medicine [address] [phone] Shanell Agarwal MD [address] [place] [address] [place] [address] Test Results Allergies Active Allergy [...] MORNING 90 Tablet 3 03/05/2023 Active Tiotropium [place] Monohydrate 18 MCG Inhalation Capsule (Spiriva)Indications :Moderate [...] 1,000 mcgIndications:Vitamin B12 deficiency 1000 mcg IM [id number] 02/06/2023 01/08/2024 Active documented as of this [...] Taxonomy. Impaired fasting glucose 06/23/200607/2011 LOC PRIM [id number] 04/16/200609/24 LOC PRIM OSTEOARTH-ANKLE 04/16/2006 Sprain of [...] encounter Miscellaneous Notes * Telephone Encounter - Thea Mccann LPN - 09/07/2023 2:20 PM EDT Patient is aware of Note Below She complete Prednisone Dose on eday 09/11/23 and using OTC cough meds, but not improving She states she still has productive cough with yellow mucus and Feels Weak Uses [facility] In [place] * Telephone Encounter - Shanell Agarwal MD - 09/07/2023 1:56 PM EDT Pls call the pt Your chest xray is normal - no sign of pneumonia documented in this encounter Plan of Treatment Upcoming Encounters Date Type Department Care Team (Late st Contact Info) Description 09/14/2023 3:00 PM EDT Nurse Only Ancillary [address] [place] [address] Nurse Samantha [address] [place] [address] 09/18/2023 4:00 PM EDT Imaging Radiology, [address] [place] [address] 10/16/2023 3:00 PM EDT Office Visit Cardiology [address] [place] [address] Herberth Denny PA-Nithin [address] [place] [address] 12/03/2023 2:00 PM EDT Office Visit Family Medicine [address] [place] [phone] Rosemary Valentine MD [address] [place] [address] [place] [address] 02/01/2024 3:00 PM EDT Nurse Only Ancillary [address] [place] [address] Nurse Kateryna [address] [place] [phone] Health Maintenance Due Date Last Done Comments DXA Scan 01/04/2023 01/05/2020, 01/04/2015 COVID-19 Vaccine ( season) 2023 COLONOSCOPY-EVERY 5 YRS AGES 18-100 04/19/2023 04/19/2018, 04/19/2018, 09/29/2014, Additional history exists CKD PHOS USE SMARTSET 42354 07/03/20230 02/2023, 05/11/2021, 02/05/2020, Additional history exists GFR 07/22/2023 01/19/2023, 0 02/2023, 10/03/2021, Additional history exists HbA1c 07/22/2023 01/19/2023, 0 02/2023, 10/03/2021, Additional history exists Albumin/Creatinine Ratio 08/04/2023 023, 05/11/2021, 07/29/2019, Additional history exists CKD HGB USE SMARTSET 60146 01/20/202401/19, 01/19/2023, 07/03/2022, Additional history exists Depression [...] this encounter Medical Devices Implanted Type Area Forest Science Professor Device Identifier Shelf Expiration Date Model / Serial / Lot Lens Intraoc 19.5 - [id number] - [id number] Implanted:Qty: 1 on 03/17/2021 by Migel Dejesus MD at OR [facility] Left: Eye [employer] LOMB 10/22/2025 [id number] / [id number] / [id number] Lens Intraoc 20.0 - [id number] - [id number] Implanted:Qty: 1 on 03/31/2021 by Migel Dejesus MD at OR [facility] Right: Eye [employer]CH [employer] LOMB 12/22/2025 [id number] / [id number] / [id number] documented as of this encounter Advance Directives Healthcare Agents on File Name Relationship Healthcare Agent Relationshi p Communication Mimi Jarrell Adult Child Health Care Repr esentative (appointed verbally by patient or by statute hierarchy) Yanci Lucille Adult Child Health Care Repr esentative (appointed verbally by patient or by statute hierarchy) Care Teams Machine Maintenance Servicer Relationship Specialty Start Date End Date Rosemary Valentine MD [address] [place] [address] [place] [address] PCP - General Family Medicine 09/05/23 documented as of this encounter
--- OUTSIDE RECORDS SUMMARY | 2023-12-02 01:57 | External Medical Summary | Summary of Care ---
Author Name Unknown Organization [facility] Address [address] [place] [address] Phone [phone] Care Team Providers Care Apprentice Carpenter Name Role Phone Rosemary Valentine MD Primary Care Provide r Reason for Visit * Reason Onset Date Comments Test Results 09/07/2023 Encounter Details Date Type Department Care Team (Late st Contact Info) Description 09/07/2023 Telephone Family Medicine [address] [phone] Shanell Agarwal MD [address] [place] [address] [place] [address] Test Results Allergies Active Allergy [...] MORNING 90 Tablet 3 03/05/2023 Active Tiotropium [place] Monohydrate 18 MCG Inhalation Capsule (Spiriva)Indications :Moderate [...] 1,000 mcgIndications:Vitamin B12 deficiency 1000 mcg IM [id number] 02/06/2023 01/08/2024 Active documented as of this [...] Taxonomy. Impaired fasting glucose 06/23/200607/2011 LOC PRIM [id number] 04/16/200609/24 LOC PRIM OSTEOARTH-ANKLE 04/16/2006 Sprain of [...] encounter Miscellaneous Notes * Telephone Encounter - Shanell Agarwal MD - 09/07/2023 1:56 PM EDT Pls call the pt Your chest xray is normal - no sign of pneumonia documented in this encounter Plan of Treatment Upcoming Encounters Date Type Department Care Team (Late st Contact Info) Description 09/14/2023 3:00 PM EDT Nurse Only Ancillary [address] [place] [address] Samantha, Nurse [address] [place] [address] 09/18/2023 4:00 PM EDT Imaging Radiology, [address] [place] [address] 10/16/2023 3:00 PM EDT Office Visit Cardiology [address] [place] [address] Herberth Denny PA-C [address] [place] [address] 12/03/2023 2:00 PM EDT Office Visit Family Medicine [address] [place] [phone] Rosemary Valentine MD [address] [place] [address] [place] [address] 02/01/2024 3:00 PM EDT Nurse Only Ancillary [address] [place] [address] Nurse Kateryna Annual [facility]ness [address] [place] [address] [place] [address] Health Maintenance Due Date Last Done Comments DXA Scan 01/04/2023 01/05/2020, 01/04/2015 COVID-19 Vaccine ( season) 2023 COLONOSCOPY-EVERY 5 YRS AGES 18-100 04/19/2023 04/19/2018, 04/19/2018, 09/29/2014, Additional history exists CKD PHOS USE SMARTSET 49531 07/03/2023 01/0 02/2023, 05/11/2021, 02/05/2020, Additional history exists GFR 07/22/2023 01/19/2023, 01/0 02/2023, 10/03/2021, Additional history exists HbA1c 07/22/2023 01/19/2023, 01/0 02/2023, 10/03/2021, Additional history exists Albumin/Creatinine Ratio 08/04/2023 023, 05/11/2021, 07/29/2019, Additional history exists CKD HGB USE SMARTSET 25365 01/20/202401/19, 01/19/2023, 07/03/2022, Additional history exists Depression [...] this encounter Medical Devices Implanted Type Area Signals Intelligence Superintendent Device Identifier Shelf Expiration Date Model / Serial / Lot Lens Intraoc 19.5 - [id number] - [id number] Implanted:Qty: 1 on 03/17/2021 by Migel Dejesus MD at OR [facility] Left: Eye BAUSCH [employer] LOMB 10/22/2025 [id number] / [id number] / [id number] Lens Intraoc 20.0 - [id number] - [id number] Implanted:Qty: 1 on 03/31/2021 by Migel Dejesus MD at OR [facility] Right: Eye BAUSCH [employer] LOMB 12/22/2025 [id number] / [id number] / [id number] documented as of this encounter Advance Directives Healthcare Agents on File Name Relationship Healthcare Agent Relationshi p Communication Mimi Jarrell Adult Child Health Care Repr esentative (appointed verbally by patient or by statute hierarchy) Yanci Adkins Adult Child Health Care Repr esentative (appointed verbally by patient or by statute hierarchy) Care Teams Apprentice Carpenter Relationship Specialty Start Date End Date Rosemary Valentine MD [address] [place] [address] [place] [phone] PCP - General Family Medicine 09/05/23 documented as of this encounter
--- OUTSIDE RECORDS SUMMARY | 2023-12-02 01:58 | External Medical Summary | Summary of Care ---
Author Name Unknown Organization [facility] Address [address] [place] [address] Phone [phone] Care Team Providers Care Bowling Ball Engraver Name Role Phone Rosemary Valentine MD Primary Care Provide r Reason for Visit * Reason Onset Date Comments Medication Refill 08/23/2023 Encounter Details Date Type Department Care Team (Late st Contact Info) Description 08/23/2023 Refill Family Medicine [address] [phone] Rosemary Valentine MD [address] [place], [place] [address] [address] Allergies Active Allergy Reactions Criticality Noted Date Comments Codeine Nausea/vomiting 08/15/2011 Propoxyphene N-Acetaminophen Nausea/vomiting Low 08/24/2008 Iodinated Contrast Media Hives 02/06/2023 Iodine Hives 01/08/2001 Latex 09/26/2012 Contact dermititis Nitrofurantoin Rash 09/07/2014 Metformin 04/12/2021 documented as of this encounter (statuses as of 08/23/2023) Medications Medication Sig Dispensed Refills Start Date [...] glucose E11.9 100 Strip 5 08/21/2022 Active SampleOn IncTouch UltraSoft LancetsIndications:T ype 2 diabetes mellitus with [...] MORNING 90 Tablet 3 03/05/2023 Active Tiotropium [place] Monohydrate 18 MCG Inhalation Capsule (Spiriva)Indications :Moderate [...] for nausea. 30 Tablet 2 07/28/2023 Active ALPRAZolam 0.5 MG Oral Tablet (xaNAX)Indications:A nxiety take 1 tablet in the morning and evening if needed for anxiety 60 Tablet 0 08/03/2023 Active Fluticasone Propionate 50 MCG/ACT Nasal Suspension [...] the evening. 225 Tablet 3 08/22/2023 Active Hospital, Clinic, or Other Facility Administered Medication Ordered Dose Route Frequency Start Date End Date Status vitamin b-12 (Cyanocobalamin) inj 1,000 mcgIndications:Vitamin B12 deficiency 1000 mcg IM [id number] 02/06/2023 01/08/2024 Active documented as of this encounter (statuses as of 08/23/2023) Active Problems Problem Noted Date Diagnosed Date [...] as of this encounter (statuses as of 08/23/2023) Resolved Problems Problem Noted Date Diagnosed Date [...] Taxonomy. Impaired fasting glucose 06/23/200607/2011 LOC PRIM [id number] 04/16/200609/24 LOC PRIM OSTEOARTH-ANKLE 04/16/2006 Sprain of [...] as of this encounter (statuses as of 08/23/2023) Immunizations Name Administration Dates Next Due Pneumococcal [...] encounter Miscellaneous Notes * Telephone Encounter - Zuleyma Paez OSA - 08/23/2023 12:39 PM EST error documented in this encounter Plan of Treatment Upcoming Encounters Date Type Department Care Team (Late st Contact Info) Description 08/31/2023 4:20 PM EST Nurse Only Ancillary [address] [place] [address] [place] Nurse [address] [place] [address] 09/18/2023 4:00 PM EDT Imaging Radiology, [address] [place] [address] 10/16/2023 3:00 PM EDT Office Visit Cardiology [address] [place] [address] Herberth Denny PA-C [address] [place] [address] 12/03/2023 2:00 PM EDT Office Visit Family Medicine [address] [place] [phone] Rosemary Valentine MD [address] [place] [address] [place] [address] 02/01/2024 3:00 PM EDT Nurse Only Ancillary [address] [place] [address] [place], Nurse Annual Wellness [address] [place] [address] [place] [address] Health Maintenance Due Date Last Done Comments DXA Scan 01/04/2023 01/05/2020, 01/04/2015 COVID-19 Vaccine ( season) 2023 COLONOSCOPY-EVERY 5 YRS AGES 18-100 04/19/2023 04/19/2018, 04/19/2018, 09/29/2014, Additional history exists CKD PHOS USE SMARTSET 95053 07/03/202302/2023, 05/11/2021, 02/05/2020, Additional history exists GFR 07/22/2023 01/19/2023, 02/2023, 10/03/2021, Additional history exists HbA1c 07/22/2023 01/19/2023, 02/2023, 10/03/2021, Additional history exists Albumin/Creatinine Ratio 08/04/2023 023, 05/11/2021, 07/29/2019, Additional history exists CKD HGB USE SMARTSET 31853 01/20/202401/19, 01/19/2023, 07/03/2022, Additional history exists Depression [...] this encounter Medical Devices Implanted Type Area Carding Supervisor Device Identifier Shelf Expiration Date Model / Serial / Lot Lens Intraoc 19.5 - [id number] - [id number] Implanted:Qty: 1 on 03/17/2021 by Migel Dejesus MD at OR [facility] Left: Eye BA[employer]CH [employer] LOMB 10/22/2025 [id number] / [id number] / [id number] Lens Intraoc 20.0 - [id number] - [id number] Implanted:Qty: 1 on 03/31/2021 by Migel Dejesus MD at OR [facility] Right: Eye BAUSCH & LOMB 12/22/2025 [id number] / [id number] / [id number] documented as of this encounter Advance Directives Healthcare Agents on File Name Relationship Healthcare Agent Relationshi p Communication Mimi Vieyra Adult Child Health Care Repr esentative (appointed verbally by patient or by statute hierarchy) Yanci Adkins Adult Child Health Care Repr esentative (appointed verbally by patient or by statute hierarchy) Care Teams Bowling Ball Engraver Relationship Specialty Start Date End Date Rosemary Valentine MD [address] [place] [address] [place] [address] PCP - General Family Medicine 10/30/11 documented as of this encounter
--- OUTSIDE RECORDS SUMMARY | 2023-12-02 01:58 | External Medical Summary | Summary of Care ---
Author Name Unknown Organization [facility] Address [address] [place] [address] Phone [phone] Care Team Providers Care Hand Router Operator Name Role Phone Rosemary Valentine MD Primary Care Provide r Reason for Visit * Reason Onset Date Comments Appointment 09/05/2023 Encounter Details Date Type Department Care Team (Late st Contact Info) Description 09/05/2023 Telephone Family Medicine [address] [phone] Rosemary Valentine MD [address] [place], [place] [address] [address] Appointment Allergies Active Allergy Reactions Criticality [...] glucose E11.9 100 Strip 5 08/21/2022 Active Vantage Data CentersTouch UltraSoft LancetsIndications: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 Impaired fasting glucose 06/23/200607/2011 LOC PRIM [id number] 04/16/200609/24 LOC PRIM OSTEOARTH-ANKLE 04/16/2006 Sprain of [...] 09/07/2023 3:00 PM EDT Nurse Only Ancillary [address] [place] [address] [place], Nurse [address] [place] [address] 09/18/2023 4:00 PM EDT Imaging Radiology, [address] [place] [address] 10/16/2023 3:00 PM EDT Office Visit Cardiology [address] [place] [address] Herberth Denny PA-C [address] [place] [address] 12/03/2023 2:00 PM EDT Office Visit Family Medicine [address] [place] [phone] Rosemary Valentine MD [address] [place] [address] [place] [address] 02/01/2024 3:00 PM EDT Nurse Only Ancillary [address] [place] [address] [place], Nurse Annual Wellness [address] [place] [address] [place] [address] Scheduled Orders Name Type Priority Associated Diagnoses Orde r Schedule XR CHEST 2 VIEWS Medical Imaging Routine SOB (shortness of breath) Acute cough Expected: 09/06/2023, Expires: 10/06/2024 Health Maintenance Due Date Last Done Comments DXA Scan 01/04/2023 01/05/2020, 01/04/2015 COVID-19 Vaccine ( season) 2023 COLONOSCOPY-EVERY 5 YRS AGES 18-100 04/19/2023 04/19/2018, 04/19/2018, 09/29/2014, Additional history exists CKD PHOS USE SMARTSET 09351 07/03/202302/2023, 05/11/2021, 02/05/2020, Additional history exists GFR 07/22/2023 01/19/2023, 02/2023, 10/03/2021, Additional history exists HbA1c 07/22/2023 01/19/2023, 02/2023, 10/03/2021, Additional history exists Albumin/Creatinine Ratio 08/04/2023 023, 05/11/2021, 07/29/2019, Additional history exists CKD HGB USE SMARTSET 50658 01/20/202401/19, 01/19/2023, 07/03/2022, Additional history exists Depression [...] this encounter Medical Devices Implanted Type Area Screening Specialist Device Identifier Shelf Expiration Date Model / Serial / Lot Lens Intraoc 19.5 - [id number] - [id number] Implanted:Qty: 1 on 03/17/2021 by Migel Dejesus MD at [facility] Left: Eye [employer]USCH [employer] LOMB 10/22/2025 [id number] / [id number] / [id number] Lens Intraoc 20.0 - [id number] - [id number] Implanted:Qty: 1 on 03/31/2021 by Migel Dejesus MD at OR [facility] Right: Eye BAUSCH [employer] LOMB 12/22/2025 [id number] / [id number] / [id number] documented as of this encounter Visit Diagnoses [...] patient or by statute hierarchy) Care Teams Hand Router Operator Relationship Specialty Start Date End Date Rosemary Valentine MD [address] [place] [address] [place] [address] PCP - General Family Medicine 09/05/23 documented as of this encounter
--- OUTSIDE RECORDS SUMMARY | 2023-12-02 01:58 | External Medical Summary | Summary of Care ---
Author Name Unknown Organization [facility] Address [address] [place] [address] Phone [phone] Care Team Providers Care Employment Director Name Role Phone Rosemary Valentine MD Primary Care Provide r Reason for Visit * Reason Onset Date Comments Medication Refill 08/29/2023 Encounter Details Date Type Department Care Team (Late st Contact Info) Description 08/29/2023 Refill Family Medicine [address] [phone] Rosemary Valentine MD [address] [place] [address] [place] [address] Intermittent asthma with reliever use up to twice per week without complication; SOB (shortness of breath) Allergies Active Allergy Reactions Criticality Noted Date Comments Codeine Nausea/vomiting 08/15/2011 Propoxyphene N-Acetaminophen Nausea/vomiting Low 08/24/2008 Iodinated Contrast Media Hives 02/06/2023 Iodine Hives 01/08/2001 Latex 09/26/2012 Contact dermititis Nitrofurantoin Rash 09/07/2014 Metformin 04/12/2021 documented as of this encounter (statuses as of 08/30/2023) Medications Medication Sig Dispensed Refills Start Date [...] glucose E11.9 100 Strip 5 08/21/2022 Active LongaccessTouch UltraSoft LancetsIndications: Type 2 diabetes mellitus with [...] MORNING 90 Tablet 3 03/05/2023 Active Tiotropium [place] Monohydrate 18 MCG Inhalation Capsule (Spiriva)Indication s:Moderate [...] 07/28/2023 Active ALPRAZolam 0.5 MG Oral Tablet (xaNAX)Indications: [...] the evening. 225 Tablet 3 08/22/2023 Active Amoxicillin 500 MG Oral Capsule (Amoxil) Take 1 Capsule by mouth in the morning and 1 Capsule at noon and 1 Capsule before bedtime. Do all this for 10 days. 30 Capsule 0 08/24/2023 09/03/2023 Active predniSONE 10 MG Oral Tablet (Deltasone)Indicati ons:Moderate persistent asthma with exacerbation,Acute cough Take 5 tabs for 2 days, 4 tabs for 2 days, 3 tabs for 2 days, 2 tabs for 2 days 1 tab for 2 days 30 Tablet 0 08/28/2023 Active Hospital, Clinic, or Other Facility Administered Medication Ordered Dose Route Frequency Start Date End Date Status vitamin b-12 (Cyanocobalamin) inj 1,000 mcgIndications:Vitamin B12 deficiency 1000 mcg IM [id number] 02/06/2023 01/08/2024 Active documented as of this encounter (statuses as of 08/30/2023) Active Problems Problem Noted Date Diagnosed Date [...] as of this encounter (statuses as of 08/30/2023) Resolved Problems Problem Noted Date Diagnosed Date [...] Taxonomy. Impaired fasting glucose 06/23/200607/2011 LOC PRIM [id number] 04/16/200609/24 LOC PRIM OSTEOARTH-ANKLE 04/16/2006 Sprain of [...] as of this encounter (statuses as of 08/30/2023) Immunizations Name Administration Dates Next Due Pneumococcal [...] encounter Miscellaneous Notes * Telephone Encounter - [facility] - 08/30/2023 11:39 AM EST Confirmed with [facility] that 5 refills remain on script from Jun 07. Christie will refill today and notify patient. Thanks, Zion Murdock.Ph. Clinical Pharmacist [facility] [phone] ext [phone] 08/30/2023,11:39 AM * Telephone Encounter - Lizz Carbajal CPhT - 08/29/2023 10:23 AM EST Did you pend patient's preferred pharmacy and medication before forwarding?yes Pharmacy: [id number] [address] [facility] Pending Prescriptions: Disp Refills Albuterol Sulfate HFA 108 (90 Base) MCG/A*18 g 5 Sig: Inhale 2 Puffs by mouth every 6 hours as needed for Shortness of Breath or Wheezing. Last Visit: 08/28/2023 (in office), Visit date not found (telemedicine) Next Visit: 12/03/2023 If no future appointments scheduled, and last appointment is greater than a year ago, please schedule patient for a follow-up appointment Last date the medication was ordered: 06/07/23 Is this request for a controlled substance?No [...] 09/07/2023 3:00 PM EDT Nurse Only Ancillary [address] [place] [address] Nurse Samantha [address] [place] [address] 09/18/2023 4:00 PM EDT Imaging [place]iology, [address] [place] [address] 10/16/2023 3:00 PM EDT Office Visit Cardiology [address] [place] [address] Herberth Denny PA-C [address] [facility] [place] [address] 12/03/2023 2:00 PM EDT Office Visit Family Medicine [address] [place] [phone] Rosemary Valentine MD [address] [place] [address] [place] [address] 02/01/2024 3:00 PM EDT Nurse Only Ancillary [address] [place] [address] [place], Nurse [address] [place] [address] Health Maintenance Due Date Last Done Comments DXA Scan 01/04/2023 01/05/2020, 01/04/2015 COVID-19 Vaccine (2022-24 season) 2023 COLONOSCOPY-EVERY 5 YRS AGES 18-100 04/19/2023 04/19/2018, 04/19/2018, 09/29/2014, Additional history exists CKD PHOS USE SMARTSET 91282 07/03/202302/2023, 05/11/2021, 02/05/2020, Additional history exists GFR 07/22/2023 01/19/2023, 0 02/2023, 10/03/2021, Additional history exists HbA1c 07/22/2023 01/19/2023, 0 02/2023, 10/03/2021, Additional history exists Albumin/Creatinine Ratio 08/04/2023 023, 05/11/2021, 07/29/2019, Additional history exists CKD HGB USE SMARTSET 82362 01/20/202401/19, 01/19/2023, 07/03/2022, Additional history exists Depression [...] this encounter Medical Devices Implanted Type Area Automatic Log Cut Off Sawyer Device Identifier Shelf Expiration Date Model / Serial / Lot Lens Intraoc 19.5 - [id number] - [id number] Implanted:Qty: 1 on 03/17/2021 by Migel Dejesus MD at OR [facility] Left: Eye BAUSCH & LOMB 10/22/2025 [id number] / [id number] / [id number] Lens Intraoc 20.0 - [id number] - [id number] Implanted:Qty: 1 on 03/31/2021 by Migel Dejesus MD at OR [facility] Right: Eye BAUSCH & LOMB 12/22/2025 [id number] / [id number] / [id number] documented as of this encounter Visit Diagnoses Diagnosis Intermittent asthma with reliever use up to twice per week without complication SOB (shortness of breath) Shortness of breath documented in this encounter Advance Directives Healthcare Agents on File Name Relationship Healthcare Agent Relationshi p Communication Mimi Vieyra Adult Child Health Care Repr esentative (appointed verbally by patient or by statute hierarchy) Yanci Adkins Adult Child Health Care Repr esentative (appointed verbally by patient or by statute hierarchy) Care Teams Employment Director Relationship Specialty Start Date End Date Rosemary Valentine MD [address] [place] [address] [place] [address] PCP - General Family Medicine 10/30/11 documented as of this encounter
--- OUTSIDE RECORDS SUMMARY | 2023-12-02 01:58 | External Medical Summary | Summary of Care ---
Author Name Unknown Organization [facility] Address [address] [place] [address] Phone [phone] Care Team Providers Care Traffic Monitor Specialist Name Role Phone Rosemary Valentine MD Primary Care Provide r Reason for Visit * Reason Comments Acute Encounter Details Date Type Department Care Team (Late st Contact Info) Description 08/28/2023 1:40 PM EST Office Visit Family Medicine [address] [phone] hSanell Agarwal MD [address] [place] [address] [place] [address] Moderate persistent asthma with exacerbation*; Acute cough Allergies Active Allergy Reactions Criticality Noted Date Comments Codeine Nausea/vomiting 08/15/2011 Propoxyphene N-Acetaminophen Nausea/vomiting Low 08/24/2008 Iodinated Contrast Media Hives 02/06/2023 Iodine Hives 01/08/2001 Latex 09/26/2012 Contact dermititis Nitrofurantoin Rash 09/07/2014 Metformin 04/12/2021 documented as of this encounter (statuses as of 08/28/2023) Medications Medication Sig Dispensed Refills Start Date [...] 100 Strip 5 08/21/2022 Active OneTouch UltraSoft LancetsIndications: Type 2 diabetes [...] MORNING 90 Tablet 3 03/05/2023 Active Tiotropium [place] Monohydrate 18 MCG Inhalation Capsule (Spiriva)Indication s:Moderate [...] 1,000 mcgIndications:Vitamin B12 deficiency 1000 mcg IM [id number] 02/06/2023 01/08/2024 Active documented as of this encounter (statuses as of 08/28/2023) Active Problems Problem Noted Date Diagnosed Date [...] as of this encounter (statuses as of 08/28/2023) Resolved Problems Problem Noted Date Diagnosed Date [...] Taxonomy. Impaired fasting glucose 06/23/200607/2011 LOC PRIM [id number] 04/16/200609/24 LOC PRIM OSTEOARTH-ANKLE 04/16/2006 Sprain of [...] as of this encounter (statuses as of 08/28/2023) Immunizations Name Administration Dates Next Due Pneumococcal [...] Sign Reading Time Taken Comments Blood Pressure 186/80 08/28/2023 1:19 PM EST Pulse 72 08/28/2023 1:19 PM EST Temperature 36 C (96.8 F) 08/28/2023 1:19 PM EST Respiratory Rate - - Oxygen Saturation 91% 08/28/2023 1:19 PM EST Inhaled Oxygen Concentration - - Weight 90.2 kg (198 lb 12.8 oz) 08/28/2023 1:19 PM EST Height - - Body Mass Index 40.13 02/06/2023 7:48 AM EDT documented in this encounter Progress Notes * Shanell Agarwal MD - 08/28/2023 2:11 PM EST Subjective: HPI: Violeta Calvert is a 78 year old female with hx of hypothyroidism, HLD, DMII, CKD, Asthma, Afib, HTN,GERD, DJD, Anxiety, COVID infection seen for Symptoms for 6 days - cough, wheezing, sob, fatigue, muscle ache - denied any fever - taking amoxicillin for 4 days - did not get tested for COVID or flu - taking OTC cough meds Patient Active Problem List Diagnosis Code Other [...] R91.8 Hiatal hernia K44.9 Paroxysmal atrial fibrillation (HCC) I48.0 S/P total knee replacement using cement Z96.659 Osteoarthritis of left hip M16.12 Type 2 diabetes mellitus with polyneuropathy ([facility]) E11.42 Asymptomatic bilateral carotid artery stenosis I65.23 Gastroesophageal reflux disease with esophagitis K21.00 Anxiety, generalized F41.1 Hypertensive kidney disease with stage 3a chronic kidney disease I12.9, N18.31 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 Current moderate episode of major depressive disorder without prior episode ([facility]) F32.1 Type 2 diabetes mellitus with stage 3a chronic kidney disease, without long-term current use of insulin ([facility]) E11.22, N18.31 History of 2019 novel coronavirus disease (COVID-19) Z86.16 Immunization not carried out because of patient decision Z28.20 BMI 40.0-44.9, adult ([facility]) Z68.41 Atherosclerosis of aorta ([facility]) I70.0 Slow transit constipation K59.01 Morbid obesity ([facility]) E66.01 Chronic diastolic congestive heart failure ([facility]) I50.32 Chronic chest pain R07.9, G89.29 Physical deconditioning R53.81 Current Outpatient Medications Medication Sig Dispense Refill ASPIRIN 81 MG PO TABS Take by mouth daily. Iron-Vitamin C 65-125 MG Oral Tablet Take [...] every 30 days . 1 mL 11 eSeekers Verio w/Device Kit Use up to 4 times a day E11.9 1 Kit 0 hydroCHLOROthiazide 12.5 MG Oral Tablet (Hydrodiuril) TAKE ONE TABLET BY MOUTH IN THE MORNING 90 Tablet 3 Yo-Fi Wellnessuch Verio In Vitro Strip (Glucose Blood) Use once daily to check glucose E11.9 100 Strip 5 OneTouch UltraSoft Lancets Use once daily to check glucose E11.9 100 Each 5 Rosuvastatin Calcium 10 MG Oral Tablet (Crestor) Take 1 Tablet by mouth in the morning. 90 Tablet 3 Acetaminophen ER 650 MG Oral Tablet Extended Release Take 1 Tablet by mouth every 8 hours as needed. Fluticasone-Salmeterol 250-50 MCG/ACT Inhalation Aerosol Powder Breath Activated (Advair Diskus) Inhale 1 Puff by mouth in the morning and 1 Puff before bedtime. 180 Each 1 Docusate Sodium 100 MG Oral Capsule (Colace) Take 1 Capsule by mouth 2 times a day as needed for Constipation. Patient taking daily at bedtime Pantoprazole Sodium 20 MG Oral Tablet Delayed Release (Protonix) Take 1 Tablet by mouth in the morning and 1 Tablet in the evening. 180 Tablet 1 Trulicity 0.75 MG/0.5ML Subcutaneous Solution Pen-injector (Dulaglutide) Inject 0.75 mg under the skin once a week. (on Mondays) 6 mL 3 Ezetimibe 10 MG Oral Tablet (Zetia) TAKE ONE TABLET BY MOUTH IN THE MORNING 90 Tablet 3 Tiotropium [place] Monohydrate 18 MCG Inhalation Capsule (Spiriva) Inhale 1 Capsule by mouth in themorning. For inhaler only, do not swallow.. 30 Capsule 12 Albuterol Sulfate HFA 108 (90 Base) MCG/ACT [...] as needed for nausea. 30 Tablet 2 ALPRAZolam 0.5 MG Oral Tablet (xaNAX) take 1 tablet in the morning and evening if needed for anxiety 60 Tablet 0 Fluticasone Propionate 50 MCG/ACT Nasal Suspension (Flonase) [...] tablet in the evening. 225 Tablet 3 Amoxicillin 500 MG Oral Capsule (Amoxil) Take 1 Capsule by mouth in the morning and 1 Capsule at noon and 1 Capsule before bedtime. Do all this for 10 days. 30 Capsule 0 predniSONE 10 MG Oral Tablet (Deltasone) Take 5 tabs for 2 days, 4 tabs for 2 days, 3 tabs for 2 days, 2 tabs for 2 days 1 tab for 2 days 30 Tablet 0 Current Facility-Administered Medications Medication Dose Route Frequency Provider Last Rate Last Admin vitamin b-12 (Cyanocobalamin) inj 1,000 mcg 1,000 mcg Intramuscular Q4 Weeks James Erazo MD 1,000 mcg at 07/20/23 1543 Past Medical History: Diagnosis Date Acute cystitis 07/13/2012 E coli, resistent to oral antibiotics Allergic rhinitis due to other allergen Asthma Asthma, severity to be determined Benign paroxysmal vertigo 11/05/2000 Body mass index (BMI) of 40.0 to 44.9 in adult (HCC) 01/31/2021 Per Obesity protocol Calcific tendinitis of [...] leg with plywood and was sutured in [facility] ER, got infected Primary localized osteoarthrosis, lower leg 04/16/2006 Reflux esophagitis Rotator cuff tear Rotator cuff tear, left 10/2012 Sciatica 12/04/2003 Sleep apnea, obstructive Spondylosis with myelopathy cervical spine Statin intolerance Vitamin B12 deficiency Past Surgical History: Procedure Laterality Date COLONOSCOPY, DIAGNOSTIC (RECTUM) 09/29/2014 Diverticulosis, adenomatous polyp, 3 yr repeat/COLONOSCOPY FLEXIBLE PROXIMAL DIAGNOSTIC performed by Joni Leone MD at ENDOSCOPY [facility] COLONOSCOPY, DIAGNOSTIC (RECTUM) 04/19/2018 hyperplastic polyp, repeat 5yrs/COLONOSCOPY FLEXIBLE PROXIMAL DIAGNOSTIC performed by Celia Cheng MD at ENDOSCOPY [facility] CORONARY ANGIOGRAPHY W/LEFT HEART CATH 09/23/2015 CORONARY ANGIOGRAPHY W/LEFT HEART CATH performed by Brandon Currie MD at [facility] CT CHEST W CONTRAST 10/23/2016 stable to minimally progressive nodules in LLL. repeat 6-[address] HEAD/BRAIN WO CONTRAST 10/25/2001 [facility]--cannot totally exclude the possibility of an aneurysm of the junction of the internal carotid and right middle cerebral arteries.essentially negative CT scan of the head. CV STRESS (ERGONOVINE) 04/2000 normal DILATION AND CURETTAGE (D&C) EGD, FLEXIBLE, DIAGNOSTIC 09/29/2014 normal bx/ESOPHAGOGASTRODUODENOSCOPY (EGD), FLEXIBLE, TRANSORAL, DIAGNOSTIC performed by Joni Leone MD at ENDOSCOPY [facility] EGD, FLEXIBLE, DIAGNOSTIC 04/19/2018 mild chronic inflammation/ESOPHAGOGASTRODUODENOSCOPY (EGD), FLEXIBLE, TRANSORAL, DIAGNOSTIC performed by Celia Cheng MD at [facility]COPY [facility] EGD, FLEXIBLE, DIAGNOSTIC 11/10/2020 Normal scope /biopsies from your duodenum and esophagus returned normal / ESOPHAGOGASTRODUODENOSCOPY (EGD), FLEXIBLE, TRANSORAL, DIAGNOSTIC performed by Celia Cheng MD at [facility]COPY [facility] EGD, FLEXIBLE, DIAGNOSTIC 02/06/2023 biopsies show gluten sensitivity/ESOPHAGOGASTRODUODENOSCOPY (EGD), FLEXIBLE, TRANSORAL, DIAGNOSTIC performed by Celia Cheng MD at [facility]OSCOPY [facility] ENDO DECOMPRESS SPINAL CORD W/LAMINOTOMY, THORACIC 11/23/2008 Dr Hickey- [facility] FLUORO UPPER GI W AIR WO KUB [...] LENS performed by Migel Dejesus MD atOR [facility] REMOVE CATARACT, INSERT LENS PROSTH Right 03/31/2021 right EXTRACAPSULAR CATARACT REMOVAL WITH INTRAOCULAR LENS performed by Migel Dejesus MD at OR [facility] REMOVE TONSILS & ADENOIDS, AGE 12+ REVISE KNEE JOINT REPLACEMENT Left 08/09/2016 Dr Palmer STRESS ECHO (DOBUTAMINE) 07/2014 no ischemia; EF 6-065% Review of patient's allergies indicates: Allergen Reactions Codeine Nausea/vomiting Iodinated Contrast Media Hives Iodine Hives Latex Contact dermititis Macrobid [Nitrofurantoin] Rash Metformin Darvocet [Propoxyphene N-Acetaminophen] Nausea/vomiting Family History Problem Relation Age of Onset Hypertension Mother Heart Disorder Mother CHF, age 64 Stroke Father age 52 Hypertension Father Colon cancer Sister Hypertension Sister No Known Problems Sister Lung cancer Brother age 72 Heart disease Brother in his 70s Breast Cancer No significant family history Social History Tobacco Use Smoking status: Former Current packs/day: 0.00 Average packs/day: 0.5 packs/day for 13.0 years (6.5 ttl pk-yrs) Types: Cigarettes Start date: 11/23/1958 Quit date: 11/24/1971 Years since quittin.7 Smokeless tobacco: Never Tobacco comments: Quit in 1971 Substance Use Topics Alcohol use: No Vaping/E-Cigarette Use Vaping/E-Cigarette Use Never User Vaping/E-Cigarette Substances Nicotine No Other No Flavoring No THC No Cannabidiol (CBD) No Vaping/E-Cigarette Devices Disposable No Pre-filled or Refillable Cartridge No Refillable Tank No Pre-filled Pod No ROS: -Per HPI OBJECTIVE: BP 186/80 | Pulse 72 | Temp 36 C (96.8 F) | Wt 90.2 kg (198 lb 12.8 oz) | SpO2 91% | BMI 40.13 kg/m | BSA 1.94 m PHYSICAL EXAM: Lungs: good air entry b/l with very mild exp wheezing ASSESSMENT/PLAN: Pt likely has flu but passed the window for tamiflu - not interested in getting tested - will do prednisone for asthma flare - RTC if the symptoms worsen BP is elevated but pt is currently taking OTC cough meds - will check her home BP Moderate persistent asthma with exacerbation (Primary) - predniSONE 10 MG Oral Tablet (Deltasone); Take 5 tabs for 2 days, 4 tabs for 2 days, 3 tabs for 2days, 2 tabs for 2 days 1 tab for 2 days Acute cough - predniSONE 10 MG Oral Tablet (Deltasone); Take 5 tabs for 2 days, 4 tabs for 2 days, 3 tabs for 2days, 2 tabs for 2 days 1 tab for 2 days Shanell Agarwal MD Family medicine, [place] [phone] documented in this encounter Nursing Notes * Maria Luisa [place], SETH - 08/28/2023 1:17 PM EST She has been sick for about a week. She had cough, congestion, sore throat, SOB, body aches. She is currently on amoxicillin from Dr. Valentine. documented in this encounter Plan of Treatment Upcoming Encounters Date Type Department Care Team (Late st Contact Info) Description 09/07/2023 3:00 PM EDT Nurse Only Ancillary [address] [place] [address] Samantha, Nurse [address] [place] [address] 09/18/2023 4:00 PM EDT Imaging Radiology, [address] [place] [address] 10/16/2023 3:00 PM EDT Office Visit Cardiology [address] [place] [address] Herberth Denny PA-C [address] [place] [address] 12/03/2023 2:00 PM EDT Office Visit Family Medicine [address] [place] [phone] Rosemary Valentine MD [address] [place] [address] [place] [address] 02/01/2024 3:00 PM EDT Nurse Only Ancillary [address] [place] [address] Nurse Kateryna [facility] [address] [place] [address] [place] [address] Health Maintenance Due Date Last Done Comments DXA Scan 01/04/2023 01/05/2020, 01/04/2015 COVID-19 Vaccine ( season) 2023 COLONOSCOPY-EVERY 5 YRS AGES 18-100 04/19/2023 04/19/2018, 04/19/2018, 09/29/2014, Additional history exists CKD PHOS USE SMARTSET 08793 07/03/20230 02/2023, 05/11/2021, 02/05/2020, Additional history exists GFR 07/22/2023 01/19/2023, /0 02/2023, 10/03/2021, Additional history exists HbA1c 07/22/2023 01/19/2023, 0 02/2023, 10/03/2021, Additional history exists Albumin/Creatinine Ratio 08/04/2023 023, 05/11/2021, 07/29/2019, Additional history exists CKD HGB USE SMARTSET 02547 01/20/202401/19, 01/19/2023, 07/03/2022, Additional history exists Depression [...] this encounter Medical Devices Implanted Type Area Information Systems Auditor Device Identifier Shelf Expiration Date Model / Serial / Lot Lens Intraoc 19.5 - [id number] - [id number] Implanted:Qty: 1 on 03/17/2021 by Migel Dejesus MD at OR [facility] Left: Eye BAUSCH & LOMB 10/22/2025 [id number] / [id number] / [id number] Lens Intraoc 20.0 - [id number] - [id number] Implanted:Qty: 1 on 03/31/2021 by Migel Dejesus MD at OR [facility] Right: Eye BAUSCH & LOMB 12/22/2025 [id number] / [id number] / [id number] documented as of this encounter Visit Diagnoses Diagnosis Moderate persistent asthma with exacerbation- Primary Unspecified asthma, with exacerbation Acute cough documented in this encounter Advance Directives Healthcare Agents on File Name Relationship Healthcare Agent Relationshi p Communication Mimi Vieyra Adult Child Health Care Repr esentative (appointed verbally by patient or by statute hierarchy) Yanci Adkins Adult Child Health Care Repr esentative (appointed verbally by patient or by statute hierarchy) Care Teams Traffic Monitor Specialist Relationship Specialty Start Date End Date Rosemary Valentine MD [address] [place] [address] [place] [phone] PCP - General Family Medicine 10/30/11 documented as of this encounter"
--- OUTSIDE RECORDS SUMMARY | 2023-12-02 01:58 | External Medical Summary | Summary of Care ---
Author Name Unknown Organization [facility] Address [address] [place] [address] Phone [phone] Care Team Providers Care Bumper Operator Name Role Phone Randy Valentine MD Primary Care Provide r Reason for Visit * Reason Onset Date Comments Medication Refill 08/29/2023 Encounter Details Date Type Department Care Team (Late st Contact Info) Description 08/29/2023 Refill Family Medicine [address] [phone] Randy Valentine MD [address] [place], [place] [address] [address] Anxiety Allergies Active Allergy Reactions Criticality [...] glucose E11.9 100 Strip 5 08/21/2022 Active Consumer PhysicsTouch UltraSoft LancetsIndications :Type 2 diabetes mellitus with [...] 02/20/2023 Active Ezetimibe 10 MG Oral Tablet (Zetia)Indications :Dyslipidemia, goal LDL below 70 TAKE ONE TABLET BY MOUTH IN THE MORNING 90 Tablet 3 03/05/2023 Active Tiotropium [place] Monohydrate 18 MCG Inhalation Capsule (Spiriva)Indicatio ns:Moderate [...] for 10 days. 30 Capsule 0 08/24/2023 4 Active predniSONE 10 MG Oral Tablet (Deltasone)Indicat [...] for anxiety 60 Tablet 0 08/30/2023 Active ALPRAZolam 0.5 MG Oral Tablet (xaNAX)Indications :Anxiety take 1 tablet in the morning and evening if needed for anxiety 60 Tablet 0 08/03/2023 4 Discontinue d(Refill) Hospital, Clinic, or Other Facility Administered Medication Ordered Dose Route Frequency Start Date End Date Status vitamin b-12 (Cyanocobalamin) inj 1,000 mcgIndications:Vitamin B12 deficiency 1000 mcg IM [id number] 02/06/2023 01/08/2024 Active documented as of this [...] Taxonomy. Impaired fasting glucose 06/23/200607/2011 LOC PRIM [id number] 04/16/200609/24 LOC PRIM OSTEOARTH-ANKLE 04/16/2006 Sprain of [...] Telephone Encounter - Randy Valentine MD - 08/30/2023 1:13 PM EST Signed Prescriptions: Disp Refills ALPRAZolam 0.5 MG Oral Tablet (xaNAX) 60 Tab*0 Sig: take 1 tablet in the morning and evening if needed for anxiety Authorizing Provider: RANDY VALENTINE * Telephone Encounter - Dory Michel [facility] - 08/30/2023 12:57 PM ESTPending Prescriptions: Disp Refills ALPRAZolam 0.5 MG Oral Tablet (xaNAX) 60 Tab*0 Sig: take 1 tablet in the morning and evening if needed for anxiety * Telephone Encounter - Dory Michel [facility] - 08/30/2023 12:56 PM EST I have reviewed the patients controlled substance dispensing history in the Prescription Drug Monitoring Program in compliance with the [facility] regulations before prescribing a controlled substance. PDMP checked on 08/30/2023. Pending Prescriptions: Disp Refills ALPRAZolam 0.5 MG Oral Tablet (xaNAX) 60 Tab*0 Sig: take 1 tablet in the morning and evening if needed for anxiety Last Visit: 08/28/2023 (in office), Visit date not found (telemedicine) Next Visit: 12/03/2023 Date medication was last filled: 08/03/23 Date medication is due for refill: 09/01/23 Pharmacy: [facility] [id number] Is this request for a controlled substance? Yes and Urine Drug Screen Not completed. Toxicology results: No results found. However, due to the size of the patient record, not all encounters were searched.Please check Results Review for a complete set of results. Please approve if appropriate. Thank You, Dory Michel [facility] Clinical Pharmacist [facility] ([facility]) (formerly Telepharmacy) [phone] 08/30/2023, 12:56 PM * Telephone Encounter - Gilma Adorno PHARM Tech - 08/30/2023 11:19 AM EST Pt calling to check on status of rx. Caller can be reached at [phone]. Thanks, Gilma Adorno Leather Production Worker [facility] ([facility]) 08/30/2023,11:19 AM * Telephone Encounter - Lizz Carbajal CPhT - 08/29/2023 10:21 AM EST Did you pend patient's preferred pharmacy and medication before forwarding?yes Pharmacy: [facility] [id number] Pending Prescriptions: Disp Refills ALPRAZolam 0.5 [...] appointment Last date the medication was ordered: 08/03/23 Is this request for a controlled substance?Yes, What was the last refill date 08/03/23 w/ quantity 60 and dosage 0.5 and [...] 09/07/2023 3:00 PM EDT Nurse Only Ancillary [address] [place] [address] [place], Nurse [address] [place] [address] 09/18/2023 4:00 PM EDT Imaging Radiology, [address] [place] [address] 10/16/2023 3:00 PM EDT Office Visit Cardiology [address] [place] [address] Herberth Denny PA-C [address] [place] [address] 12/03/2023 2:00 PM EDT Office Visit Family Medicine [address] [place] [phone] Randy Valentine MD [address] [place] [address] [place] [address] 02/01/2024 3:00 PM EDT Nurse Only Ancillary [address] [place] [address] [place], Nurse Annual Wellness [address] [place] [address] [place] [address] Health Maintenance Due Date Last Done Comments DXA Scan 01/04/2023 01/05/2020, 01/04/2015 COVID-19 Vaccine ( season) 2023 COLONOSCOPY-EVERY 5 YRS AGES 18-100 04/19/2023 04/19/2018, 04/19/2018, 09/29/2014, Additional history exists CKD PHOS USE SMARTSET 39425 07/03/202302/2023, 05/11/2021, 02/05/2020, Additional history exists GFR 07/22/2023 01/19/2023, 0 02/2023, 10/03/2021, Additional history exists HbA1c 07/22/2023 01/19/2023, 0 02/2023, 10/03/2021, Additional history exists Albumin/Creatinine Ratio 08/04/2023 023, 05/11/2021, 07/29/2019, Additional history exists CKD HGB USE SMARTSET 49315 01/20/202401/19, 01/19/2023, 07/03/2022, Additional history exists Depression [...] this encounter Medical Devices Implanted Type Area Loom Operator Apprentice Device Identifier Shelf Expiration Date Model / Serial / Lot Lens Intraoc 19.5 - [id number] - [id number] Implanted:Qty: 1 on 03/17/2021 by Migel Dejesus MD at OR [facility] Left: Eye [employer] 10/22/2025 [id number] / [id number] / [id number] Lens Intraoc 20.0 - [id number] - [id number] Implanted:Qty: 1 on 03/31/2021 by Migel Dejesus MD at OR [facility] Right: Eye BAUSCH [employer] LOMB 12/22/2025 [id number] / [id number] / [id number] documented as of this encounter Visit Diagnoses Diagnosis Anxiety Anxiety state, unspecified documented in this encounter Advance Directives Healthcare Agents on File Name Relationship Healthcare Agent Relationshi p Communication Mimi Vieyra Adult Child Health Care Repr esentative (appointed verbally by patient or by statute hierarchy) Yanci Adkins Adult Child Health Care Repr esentative (appointed verbally by patient or by statute hierarchy) Care Teams Bumper Operator Relationship Specialty Start Date End Date Randy Valentine MD [address] [place] [address] [place] [phone] PCP - General Family Medicine 10/30/11 documented as of this encounter
--- OUTSIDE RECORDS SUMMARY | 2023-12-02 01:59 | External Medical Summary | Summary of Care ---
Author Name Unknown Organization [facility] Address [address] [place] [address] Phone [phone] Care Team Providers Care Airways Control Specialist Name Role Phone Rosemary Valentine MD Primary Care Provide r Reason for Visit * Reason Onset Date Comments Advice 04/23/2023 Patient tested p ositive for the COVID-19 Encounter Details Date Type Department Care Team (Late st Contact Info) Description 04/23/[address] [phone] Rosemary Valentine MD [address] [place] [address] [place] [address] Advice (Patient tested positive for the CO... Allergies Active Allergy Reactions Criticality Noted Date Comments Codeine Nausea/vomiting 08/15/2011 Propoxyphene N-Acetaminophen Nausea/vomiting Low 08/24/2008 Iodinated Contrast Media Hives 02/06/2023 Iodine Hives 01/08/2001 Latex 09/26/2012 Contact dermititis Nitrofurantoin Rash 09/07/2014 Metformin 04/12/2021 documented as of this encounter (statuses as of 07/23/2023) Medications Medication Sig Dispensed Refills Start Date End Date Status ASPIRIN 81 MG PO TABSIndications:h eart Take by mouth daily. 0 Active Iron-Vitamin C 65-125 MG Oral Tablet Take 1 Tablet by mouth in the morning. 90 Tab 3 01/25/2016 Active Polyethylene Glycol 3350 17 GM/SCOOP Oral PowderIndications :constipation Take 17 g by mouth at bedtime as needed for Constipation. 0 Active Loratadine 10 MG Oral CapsuleIndication s:allergies Take 1 Capsule by mouth in the morning. 0 Active Fluticasone Propionate 50 MCG/ACT Nasal Suspension (Flonase)Indicati ons:Seasonal allergic rhinitis due to pollen Administer 2 Sprays into each nostril daily. 18.2 mL 11 11/24/2020 Active Additional Information Patient taking differently:2 [place] Each Nostril Daily(AM),Indications: stuffy nose, Reported on 05/03/2022 Cyanocobalamin 1000 MCG/ML Injection Solution (Cyanocobalamin) Inject as directed 1,000 mcg every 30 days . 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 225 Tablet 3 08/17/2022 Active Irbesartan 150 MG Oral Tablet (Avapro) TAKE 1 TABLET BY MOUTH EVERY MORNING 90 Tablet 3 08/17/2022 Active OneTouch [...] every 8 hours as needed. 0 Active Fluticasone-Salme terol 250-50 MCG/ACT Inhalation Aerosol [...] the evening. 180 Tablet 1 01/19/2023 Active Levothyroxine Sodium 150 MCG Oral Tablet (Levoxyl) Take 1 Tablet by mouth daily first thing in the morning. (at least 30 min prior to breakfast or other meds) 30 Tablet 8 02/08/2023 Active Trulicity 0.75 MG/0.5ML Subcutaneous Solution Pen-injector (Dulaglutide)Danica cations:Type 2 diabetes mellitus with stage 3a chronic kidney disease, without long-term current use of insulin (HCC) Inject 0.75 mg under the skin once a week. (on Mondays) 6 mL 3 02/20/2023 Active Ezetimibe 10 MG Oral Tablet (Zetia)Indication s:Dyslipidemia, goal LDL below 70 TAKE ONE TABLET BY MOUTH IN THE MORNING 90 Tablet 3 03/05/2023 Active Nirmatrelvir&Ascencion navir 300/100 20 x 150 MG & 10 x 100MG Oral Tablet Therapy Pack (Paxlovid (300/100)) Take 2 pink tablets of Nirmatrelvir and 1 white tablet of Ritonavir two times a day by mouth. 30 Tablet 0 04/23/2023 Active Tiotropium [place] Monohydrate 18 MCG Inhalation Capsule (Spiriva)Indicati ons:Moderate persistent asthma without complication Inhale 1 Capsule (2 Puffs) by mouth in the morning. For inhaler only, do not swallow.. 30 Capsule 12 05/03/2022 3 Discontinue d(Refill) Albuterol Sulfate HFA 108 (90 Base) MCG/ACT Inhalation Aerosol SolutionIndicatio ns:Intermittent asthma with reliever use up to twice per week without complication,SOB (shortness of breath) Inhale 2 Puffs by mouth every 6 hours as needed for Shortness of Breath or Wheezing. 18 g 5 10/03/2022 3 Discontinue d(Refill) ALPRAZolam 0.5 MG Oral Tablet (xaNAX)Indication s:Anxiety take 1 tablet in the morning and evening if needed for anxiety 60 Tablet 0 04/05/2023 3 Discontinue d(Refill) Ondansetron HCl 4 MG Oral Tablet (Zofran)Indicatio ns:Nausea without vomiting take 1 tablet every 6 hours as needed for nausea. 30 Tablet 2 04/20/2023 3 Discontinue d(Refill) Hospital, Clinic, or Other Facility Administered Medication Ordered Dose Route Frequency Start Date End Date Status vitamin b-12 (Cyanocobalamin) inj 1,000 mcgIndications:Vitamin B12 deficiency 1000 mcg IM [id number] 02/06/2023 01/08/2024 Active documented as of this encounter (statuses as of 07/23/2023) Active Problems Problem Noted Date Diagnosed Date [...] as of this encounter (statuses as of 07/23/2023) Resolved Problems Problem Noted Date Diagnosed Date [...] Taxonomy. Impaired fasting glucose 06/23/200607/2011 LOC PRIM [id number] 04/16/200609/24 LOC PRIM OSTEOARTH-ANKLE 04/16/2006 Sprain of [...] as of this encounter (statuses as of 07/23/2023) Immunizations Name Administration Dates Next Due Pneumococcal [...] Date Smoking Tobacco: Former Cigarettes 0.5 13 Q uit: 11/24/1971 Smokeless Tobacco: Never Comments:Quit in 1971 Alcohol Use Standard Drinks/Week Comments No 0 (1 standard drink = 0.6 oz pur e alcohol) PHQ-2 Answer Date Recorded PHQ Adult Total Score 1 01/29/2023 Hunger Vital Sign Answer Date Recorded Within the past 12 months, y ou worried that your food would run out before you got the money to buy more. Never true 01/30/20 23 Within the past 12 months, t he food you bought just didn't last and you didn't have money to get more. Never true 01/29/2023 Sex and Gender Information Value Date Recorded Sex Assigned at Female 01/23/2022 3:44 PM EDT Gender Identity Female 01/23/2022 3:44 PM EDT Sexual Orientation Straight 01/23/2022 3: 44 PM EDT Job Start Date Occupation Industry Not on file Not on file Not on file documented as of this encounter Miscellaneous Notes * Telephone Encounter - Olamide Florentino LPN - 04/23/2023 6:25 PM EDT Made pt aware and they expressed understanding. * Telephone Encounter - Rosemary Valentine MD - 04/23/2023 6:19 PM EDT Sent Paxlovid. Hold Advair while taking the Paxlovid * Telephone Encounter - Henna Aden LPN - 04/23/2023 5:02 PM EDT Call details: Cough COUGH: Yes Cough Symptoms: Moist (dark green phlegm),At night,During day How long has your cough lasted? quite awhile, 2 or 3 days now Fever: No Pain and/or Headache PAIN: Yes Pain Level: 8/10 Describe the Pain: Pressure Location of Pain: The very fronte of her head How long has the pain lasted? all day Does the pain radiate? No Is there a clear cause for the pain? Yes (She has the COVID-19) Has the pain changed? No Does anything make the pain better? cold wash cloth Does anything make the pain worse? No Fever: No Sore Throat SORE THROAT: Yes How long have you had a sore throat? 3 days at least Fever: No Additional Comment(s) Additional Comments: Patient is asking if she can take tylenol. Patient Request Patient Requesting: Medication Prescribed * Telephone Encounter - Sergio Vasques OSA - 04/23/2023 11:01 AM EDT Reason for patient call/what is patient requesting? Patient tested positive for the COVID-19 Have you had symptoms of COVID-19 such as fever, sore throat, shortness of breath? COVID19 Symptoms:yes Date of first symptoms: 3 days ago Date of last fever: No Date of last symptoms: 3 days ago Have you had close exposure to someone who tested positive for COVID-19? COVID19 Exposure: yes 1 week ago Date of first exposure: 1 week ago Date of last exposure: She lives with the patient and is still sick. Testing location requested: Positive COVID 19 test in the past 90 days? Clinic Test No Home test Yes Did you have 2 vaccines No Boosters None Call Details are Required [employer] [facility] [place]. documented in this encounter Plan of Treatment Upcoming Encounters Date Type Department Care Team (Late st Contact Info) Description 08/17/2023 3:20 PM EST Nurse Only Ancillary [address] [place] [address] [place], Nurse [address] [place] [address] 09/18/2023 4:00 PM EDT Imaging Radiology, [address] [place] [address] 10/16/2023 3:00 PM EDT Office Visit Cardiology [address] [place] [address] Herberth Denny PA-C [address] [place] [address] 12/03/2023 2:00 PM EDT Office Visit Family Medicine [address] [place] [phone] Rosemary Valentine MD [address] [place] [address] [place] [address] 02/01/2024 3:00 PM EDT Nurse Only Ancillary Amirah Ellis[address] [place] [address] [place], Nurse [address] [place] [address] Health Maintenance Due Date Last Done Comments COVID-19 Vaccine (#1) 1945 Hepatitis B (1 of 3 - Risk 3-dose series) 2003 Diabetic Eye Exam 11/28/2022 11/28/2021, , 08/20/2020, Additional history exists DXA Scan 01/04/2023 01/05/2020, 01/04/2015 COLONOSCOPY-EVERY 5 YRS AGES 18-100 04/19/2023 04/19/2018, 04/19/2018, 09/29/2014, Additional history exists CKD PHOS USE SMARTSET 20500 07/03/2023/0 02/2023, 05/11/2021, 02/05/2020, Additional history exists GFR 07/22/2023 01/19/2023, 01/0 02/2023, 10/03/2021, Additional history exists HbA1c 07/22/2023 01/19/2023, 01/0 02/2023, 10/03/2021, Additional history exists Albumin/Creatinine Ratio 08/04/2023 023, 05/11/2021, 07/29/2019, Additional history exists CKD HGB USE SMARTSET 80277 01/20/202401/19, 01/19/2023, 07/03/2022, Additional history exists Depression Screening 01/30/2024 01/29/2023 Diabetic Foot Exam 01/30/2024 01/29/2023, 0 01/23/2022, 12/20/2020, Additional history exists TSH 03/19/2024 03/19/2023, 12/24, 11/27/2022, Additional history exists DTaP,Tdap,and Td Vaccines (3 [...] this encounter Medical Devices Implanted Type Area Restaurant Recruiter Device Identifier Shelf Expiration Date Model / Serial / Lot Lens Intraoc 19.5 - [id number] - [id number] Implanted:Qty: 1 on 03/17/2021 by Migel Dejesus MD at OR [facility] Left: Eye [employer]OMB 10/22/2025 [id number] / [id number] / [id number] Lens Intraoc 20.0 - [id number] - [id number] Implanted:Qty: 1 on 03/31/2021 by Migel Dejesus MD at OR [facility] Right: Eye [employer]CH [employer] LOMB 12/22/2025 [id number] / [id number] / [id number] documented as of this encounter Advance Directives Healthcare Agents on File Name Relationship Healthcare Agent Relationshi p Communication Mimi Jarrell Adult Child Health Care Repr esentative (appointed verbally by patient or by statute hierarchy) Yanci Adkins Adult Child Health Care Repr esentative (appointed verbally by patient or by statute hierarchy) Care Teams Airways Control Specialist Relationship Specialty Start Date End Date Rosemary Valentine MD [address] [place] [address] [place] [address] PCP - General Family Medicine 10/30/11 documented as of this encounter
--- OUTSIDE RECORDS SUMMARY | 2023-12-02 01:59 | External Medical Summary | Summary of Care ---
Author Name Unknown Organization [facility] Address [address] [place] [address] Phone [phone] Care Team Providers Care Building Superintendent Name Role Phone Rosemary Valentine MD Primary Care Provide r Reason for Visit * Reason Onset Date Comments Medication Refill 08/14/2023 Encounter Details Date Type Department Care Team (Late st Contact Info) Description 08/14/2023 Refill Family Medicine [address] [phone] Rosemary Valentine MD [address] [place] [address] [place] [address] Seasonal allergic rhinitis due to pollen Allergies Active Allergy Reactions Criticality Noted Date Comments Codeine Nausea/vomiting 08/15/2011 Propoxyphene N-Acetaminophen Nausea/vomiting Low 08/24/2008 Iodinated Contrast Media Hives 02/06/2023 Iodine Hives 01/08/2001 Latex 09/26/2012 Contact dermititis Nitrofurantoin Rash 09/07/2014 Metformin 04/12/2021 documented as of this encounter (statuses as of 08/15/2023) Medications Medication Sig Dispensed Refills Start Date [...] glucose E11.9 100 Strip 5 08/21/2022 Active Rebel Coast WineryTouch UltraSoft LancetsIndications :Type 2 diabetes mellitus with stage 3a chronic kidney disease, without long-term current use of insulin ([facility]) Use once daily to check glucose [...] MORNING 90 Tablet 3 03/05/2023 Active Tiotropium S[place] Monohydrate 18 MCG Inhalation Capsule (Spiriva)Indicatio ns:Moderate [...] 07/28/2023 Active ALPRAZolam 0.5 MG Oral Tablet (xaNAX)Indications :Anxiety take 1 tablet in the morning and evening if needed for anxiety 60 Tablet 0 08/03/2023 Active Fluticasone Propionate 50 MCG/ACT Nasal Suspension (Flonase)Indicatio ns:Seasonal allergic rhinitis due to pollen Administer 2 Sprays into each nostril in the morning. 18.2 mL 11 08/15/2023 Active Fluticasone Propionate 50 MCG/ACT Nasal Suspension (Flonase)Indicatio ns:Seasonal allergic rhinitis due to pollen Administer 2 Sprays into each nostril daily. 18.2 mL 11 11/24/2020 4 Discontinue d(Refill) Hospital, Clinic, or Other Facility Administered Medication Ordered Dose Route Frequency Start Date End Date Status vitamin b-12 (Cyanocobalamin) inj 1,000 mcgIndications:Vitamin B12 deficiency 1000 mcg IM [id number] 02/06/2023 01/08/2024 Active documented as of this encounter (statuses as of 08/15/2023) Active Problems Problem Noted Date Diagnosed Date [...] as of this encounter (statuses as of 08/15/2023) Resolved Problems Problem Noted Date Diagnosed Date [...] Taxonomy. Impaired fasting glucose 06/23/200607/2011 LOC PRIM [id number] 04/16/200609/24 LOC PRIM OSTEOARTH-ANKLE 04/16/2006 Sprain of [...] as of this encounter (statuses as of 08/15/2023) Immunizations Name Administration Dates Next Due Pneumococcal [...] encounter Miscellaneous Notes * Telephone Encounter - Katina Cruz [facility] - 08/15/2023 10:56 AM EST Signed Prescriptions: Disp Refills Fluticasone Propionate 50 MCG/ACT Nasal Rucker*18.2 mL11 Sig: Administer 2 Sprays into each nostril in the morning. Authorizing Provider: ROSEMARY VALENTINE Ordering User: KATINA CRUZ Electronically signed by Katina Cruz [facility] at 08/15/2023 10:56 AM EST * Telephone Encounter - Parris Watts, guest request runner - 08/14/2023 11:36 AM EST Did you pend patient's preferred pharmacy and medication before forwarding?yes Pharmacy: [id number] [address] [facility] Pending Prescriptions: Disp Refills Fluticasone Propionate 50 MCG/ACT Nasal S*18.2 mL11 Sig: Administer 2 Sprays into each nostril in the morning. Last Visit: 04/13/2023 (in office), Visit date not found (telemedicine) Next Visit: 12/03/2023 If no future appointments scheduled, and last appointment is greater than a year ago, please schedule patient for a follow-up appointment Last date the medication was ordered: 11/24/2020 Is this request for a controlled substance?No [...] Team (Late st Contact Info) Description 08/23/2023 4:00 PM EST Nurse Only Ancillary [address] [place] [address] Nurse Samantha [address] [place] [address] 09/18/2023 4:00 PM EDT Imaging Radiology, [address] [place] [address] 10/16/2023 3:00 PM EDT Office Visit Cardiology [address] [place] [address] Herberth Denny PA-Nithin [address] [facility] [place] [address] 12/03/2023 2:00 PM EDT Office Visit Family Medicine [address] [place] [phone] Rosemary Valentine MD [address] [place] [address] [place] [address] 02/01/2024 3:00 PM EDT Nurse Only Ancillary [address] [place] [address] [place], Nurse [address] [place] [address] Health Maintenance Due Date Last Done Comments DXA Scan 01/04/2023 01/05/2020, 01/04/2015 COVID-19 Vaccine ( season) 2023 COLONOSCOPY-EVERY 5 YRS AGES 18-100 04/19/2023 04/19/2018, 04/19/2018, 09/29/2014, Additional history exists CKD PHOS USE SMARTSET 34249 07/03/20230 02/2023, 05/11/2021, 02/05/2020, Additional history exists GFR 07/22/2023 01/19/2023, 0 02/2023, 10/03/2021, Additional history exists HbA1c 07/22/2023 01/19/2023, 02/2023, 10/03/2021, Additional history exists Albumin/Creatinine Ratio 08/04/2023 023, 05/11/2021, 07/29/2019, Additional history exists CKD HGB USE SMARTSET 05289 01/20/202401/19, 01/19/2023, 07/03/2022, Additional history exists Depression [...] this encounter Medical Devices Implanted Type Area Plant Operations Vice President Device Identifier Shelf Expiration Date Model / Serial / Lot Lens Intraoc 19.5 - [id number] - [id number] Implanted:Qty: 1 on 03/17/2021 by Migel Dejesus MD at OR [facility] Left: Eye [employer]OM[employer] 10/22/2025 [id number] / [id number] Lens Intraoc 20.0 - [id number] - [id number] Implanted:Qty: 1 on 03/31/2021 by Migel Dejesus MD at OR [facility] Right: Eye [employer]CH [employer]OMB 12/22/2025 [id number] / [id number] / [id number] documented as of this encounter Visit Diagnoses Diagnosis Seasonal allergic rhinitis due to pollen documented in this encounter Advance Directives Healthcare Agents on File Name Relationship Healthcare Agent Relationshi p Communication Miminik Vieyra Adult Child Health Care Repr esentative (appointed verbally by patient or by statute hierarchy) Yanci Adkins Adult Child Health Care Repr esentative (appointed verbally by patient or by statute hierarchy) Care Teams Building Superintendent Relationship Specialty Start Date End Date Rosemary Valentine MD [address] [place] [address] [place] [address] PCP - General Family Medicine 10/30/11 documented as of this encounter
--- OUTSIDE RECORDS SUMMARY | 2023-12-02 01:59 | External Medical Summary | Summary of Care ---
Author Name Unknown Organization [facility] Address [address] [place] [address] Phone [phone] Care Team Providers Care Immigration Judge Name Role Phone Rosemary Valentine MD Primary Care Provide r Reason for Visit * Reason Onset Date Comments Medication Refill 07/27/2023 Encounter Details Date Type Department Care Team (Late st Contact Info) Description 07/27/2023 Refill Family Medicine [address] [phone] Rosemary Valentine MD [address] [place] [address] [place] [address] Anxiety, generalized; Current moderate episode of major depressive disorder without prior episode (HCC); Nausea without vomiting Allergies Active Allergy Reactions Criticality Noted Date Comments Codeine Nausea/vomiting 08/15/2011 Propoxyphene N-Acetaminophen Nausea/vomiting Low 08/24/2008 Iodinated Contrast Media Hives 02/06/2023 Iodine Hives 01/08/2001 Latex 09/26/2012 Contact dermititis Nitrofurantoin Rash 09/07/2014 Metformin 04/12/2021 documented as of this encounter (statuses as of 07/28/2023) Medications Medication Sig Dispensed Refills Start Date [...] Sprays into each nostril daily. 18.2 mL 11/24/2020 Active Additional Information Patient taking differently:2 Oketo Each Nostril Daily(AM),Indications: stuffy nose, Reported on 05/03/2022 Cyanocobalamin 1000 MCG/ML Injection Solution (Cyanocobalamin) Inject as directed 1,000 mcg every 30 days . 1 mL 09/13/2021 Active OneTouch Verio w/Device KitIndications:Ty pe [...] 1 tablet in the evening. 225 Tablet 08/17/2022 Active Irbesartan 150 MG Oral Tablet (Avapro) TAKE 1 TABLET BY MOUTH EVERY MORNING 90 Tablet 08/17/2022 Active OneTouch Verio In Vitro Strip (Glucose Blood)Indications :Type 2 diabetes mellitus with stage 3a chronic kidney disease, without long-term current use of insulin (HCC) Use once daily to check glucose E11.9 100 Strip 08/21/2022 Active OneTouch UltraSoft LancetsIndication s:Type 2 diabetes mellitus with stage 3a chronic kidney disease, without long-term current use of insulin (HCC) Use once daily to check glucose E11.9 100 Each 08/21/2022 Active Rosuvastatin Calcium 10 MG Oral [...] by mouth. 30 Tablet 0 04/23/2023 Active Azithromycin 250 MG Oral Tablet (Zithromax Z-Tien) Take two tablets by mouth on first day, then 1 tablet daily until gone 6 Tablet 0 05/03/2023 Active Tiotropium Mobile Monohydrate 18 MCG Inhalation Capsule (Spiriva)Indicati ons:Moderate [...] or Wheezing. 18 g 5 06/07/2023 Active ALPRAZolam 0.5 MG Oral Tablet (xaNAX)Indication s:Anxiety take 1 tablet in the morning and evening if needed for anxiety 60 Tablet 0 07/05/2023 Active Sertraline HCl 100 MG Oral Tablet (Zoloft)Indicatio ns:Anxiety, generalized,Curre nt moderate episode of major depressive disorder without prior episode (HCC) TAKE 1 - 2 TABLETS BY MOUTH EVERY DAY 200 Tablet 2 07/28/2023 Active Ondansetron HCl 4 MG Oral Tablet (Zofran)Indicatio ns:Nausea without vomiting take 1 tablet every 6 hours as needed for nausea. 30 Tablet 2 07/28/2023 Active Sertraline HCl 100 MG Oral Tablet (Zoloft)Indicatio ns:Anxiety, generalized,Curre nt moderate episode of major depressive disorder without prior episode (HCC) TAKE 1 - 2 TABLETS BY MOUTH EVERY DAY 200 Tablet 1 07/13/2022 4 Discontinue d(Refill) Ondansetron HCl 4 MG Oral Tablet (Zofran)Indicatio ns:Nausea without vomiting take 1 tablet every 6 hours as needed for nausea. 30 Tablet 2 06/12/2023 4 Discontinue d(Refill) Hospital, Clinic, or Other Facility Administered Medication Ordered Dose Route Frequency Start Date End Date Status vitamin b-12 (Cyanocobalamin) inj 1,000 mcgIndications:Vitamin B12 deficiency 1000 mcg IM [id number] 02/06/2023 01/08/2024 Active documented as of this encounter (statuses as of 07/28/2023) Active Problems Problem Noted Date Diagnosed Date [...] as of this encounter (statuses as of 07/28/2023) Resolved Problems Problem Noted Date Diagnosed Date [...] Taxonomy. Impaired fasting glucose 06/23/200607/2011 LOC PRIM [id number] 04/16/200609/24 LOC PRIM OSTEOARTH-ANKLE 04/16/2006 Sprain of [...] as of this encounter (statuses as of 07/28/2023) Immunizations Name Administration Dates Next Due Pneumococcal [...] encounter Miscellaneous Notes * Telephone Encounter - Dayday Kapadia [facility] - 07/28/2023 10:05 AM EST Signed Prescriptions: Disp Refills Sertraline HCl 100 MG Oral Tablet (Zoloft) 200 Ta*2 Sig: TAKE 1 - 2 TABLETS BY MOUTH EVERY DAY Authorizing Provider: ROSEMARY VALENTINE Ordering User: DAYDAY KAPADIA Ondansetron HCl 4 MG Oral Tablet (Zofran) 30 Tab*2 Sig: take 1 tablet every 6 hours as needed for nausea. Authorizing Provider: ROSEMARY VALENTINEi User: DAYDAY KAPADIA * Telephone Encounter - Phyllis Zuniga CPhT - 07/27/2023 11:41 AM EST Did you pend patient's preferred pharmacy and medication before forwarding?yes Pharmacy: [id number] [address] [facility] Pending Prescriptions: Disp Refills Sertraline HCl 100 MG Oral Tablet (Zoloft)200 Ta*1 Sig: TAKE 1 - 2 TABLETS BY MOUTH EVERY DAY Ondansetron HCl 4 MG Oral Tablet (Zofran) 30 Tab*2 Sig: take 1 tablet every 6 hours as needed for nausea. Last Visit: 04/13/2023 (in office), Visit date not found (telemedicine) Next Visit: 12/03/2023 If no future appointments scheduled, and last appointment is greater than a year ago, please schedule patient for a follow-up appointment Last date the medication was ordered: 07/13/22 Is this request for a controlled substance?No [...] 08/17/2023 3:20 PM EST Nurse Only Ancillary [address] [place] [address] Samantha Nurse g [address] [place] [address] [place] [address] 09/18/2023 4:00 PM EDT Imaging Radiology, [address] [place] [address] 10/16/2023 3:00 PM EDT Office Visit Cardiology [address] [place] [address] Herberth Denny PA-C [address] [place] [address] 12/03/2023 2:00 PM EDT Office Visit Family Medicine [address] [place] [phone] Rosemary Valentine MD [address] [place] [address] [place] [address] 02/01/2024 3:00 PM EDT Nurse Only Ancillary [address] [place] [address] Kateryna, [address] [place] [address] Health Maintenance Due Date Last Done Comments COVID-19 Vaccine (#1) 1945 Hepatitis B (1 of 3 - Risk 3-dose series) 2003 DXA Scan 01/04/2023 01/05/2020, 01/04/2015 COLONOSCOPY-EVERY 5 YRS AGES 18-100 04/19/2023 04/19/2018, 04/19/2018, 09/29/2014, Additional history exists CKD PHOS USE SMARTSET 43809 07/03/202302/2023, 05/11/2021, 02/05/2020, Additional history exists GFR 07/22/2023 01/19/2023, 02/2023, 10/03/2021, Additional history exists HbA1c 07/22/2023 01/19/2023, 02/2023, 10/03/2021, Additional history exists Albumin/Creatinine Ratio 08/04/2023 023, 05/11/2021, 07/29/2019, Additional history exists CKD HGB USE SMARTSET 82381 01/20/202401/19, 01/19/2023, 07/03/2022, Additional history exists Depression [...] this encounter Medical Devices Implanted Type Area Curriculum Designer Device Identifier Shelf Expiration Date Model / Serial / Lot Lens Intraoc 19.5 - [id number] - [id number] Implanted:Qty: 1 on 03/17/2021 by Migel Dejesus MD at [facility] Left: Eye [employer]OM[employer] 10/22/2025 [id number] / [id number] / [id number] Lens Intraoc 20.0 - [id number] - [id number] Implanted:Qty: 1 on 03/31/2021 by Migel Dejesus MD at OR [facility] Right: Eye BAUSCH [employer] LOMB 12/22/2025 [id number] / [id number] / [id number] documented as of this encounter Visit Diagnoses Diagnosis Anxiety, generalized Generalized anxiety disorder Current moderate episode of major depressive disorder without prior episode (HCC) Nausea without vomiting documented in this encounter Advance Directives Healthcare Agents on File Name Relationship Healthcare Agent Relationshi p Communication Mimi Vieyra Adult Child Health Care Repr esentative (appointed verbally by patient or by statute hierarchy) Yanci Adkins Adult Child Health Care Repr esentative (appointed verbally by patient or by statute hierarchy) Care Teams Immigration Judge Relationship Specialty Start Date End Date Rosemary Valentine MD [address] [place] [address] [place] [address] PCP - General Family Medicine 10/30/11 documented as of this encounter
--- OUTSIDE RECORDS SUMMARY | 2023-12-02 01:59 | External Medical Summary | Summary of Care ---
Author Name Unknown Organization [facility] Address [address] [place] [address] Phone [phone] Care Team Providers Care Funding Specialist Name Role Phone Rosemary Valentine MD Primary Care Provide r Reason for Visit * Reason Onset Date Comments Med Request 08/20/2023 Encounter Details Date Type Department Care Team (Late st Contact Info) Description 08/20/2023 Telephone Family Medicine [address] [phone] Rosemary Valentine MD [address] [place], [place] [address] [address] Med Request Allergies Active Allergy Reactions Criticality Noted Date Comments Codeine Nausea/vomiting 08/15/2011 Propoxyphene N-Acetaminophen Nausea/vomiting Low 08/24/2008 Iodinated Contrast Media Hives 02/06/2023 Iodine Hives 01/08/2001 Latex 09/26/2012 Contact dermititis Nitrofurantoin Rash 09/07/2014 Metformin 04/12/2021 documented as of this encounter (statuses as of 08/20/2023) Medications Medication Sig Dispensed Refills Start Date [...] glucose E11.9 100 Strip 5 08/21/2022 Active Factor.ioTouch UltraSoft LancetsIndications:T ype 2 diabetes mellitus with [...] MORNING 90 Tablet 3 03/05/2023 Active Tiotropium Roy Monohydrate 18 MCG Inhalation Capsule (Spiriva)Indications :Moderate [...] the morning. 18.2 mL 11 08/15/2023 Active Hospital, Clinic, or Other Facility Administered Medication Ordered Dose Route Frequency Start Date End Date Status vitamin b-12 (Cyanocobalamin) inj 1,000 mcgIndications:Vitamin B12 deficiency 1000 mcg IM [id number] 02/06/2023 01/08/2024 Active documented as of this encounter (statuses as of 08/20/2023) Active Problems Problem Noted Date Diagnosed Date [...] as of this encounter (statuses as of 08/20/2023) Resolved Problems Problem Noted Date Diagnosed Date [...] Taxonomy. Impaired fasting glucose 06/23/200607/2011 LOC PRIM [id number] 04/16/200609/24 LOC PRIM OSTEOARTH-ANKLE 04/16/2006 Sprain of [...] as of this encounter (statuses as of 08/20/2023) Immunizations Name Administration Dates Next Due Pneumococcal [...] encounter Miscellaneous Notes * Telephone Encounter - Natali Faust kettle operator - 08/20/2023 9:41 AM EST Pt calling to request hydroCHLOROthiazide 12.5 MG Oral Tablet (Hydrodiuril) . Informed pt that RX is available at their pharmacy. Pt verbalized understanding and stated they will check with their pharmacy regarding this medication. Thank you, Natali Faust Twitchell Operator II Certified [facility]ized [facility] (formerly Telepharmacy) 08/20/2023,9:41 AM documented in this encounter Plan of Treatment Upcoming Encounters Date Type Department Care Team (Late st Contact Info) Description 08/23/2023 4:00 PM EST Nurse Only Ancillary [address] [place] [address] Samantha, Nurse [address] [place] [address] 09/18/2023 4:00 PM EDT Imaging Radiology, [address] [place] [address] 10/16/2023 3:00 PM EDT Office Visit Cardiology [address] [place] [address] Herberth Denny PA-C [address] [place] [address] 12/03/2023 2:00 PM EDT Office Visit Family Medicine [address] [place] [phone] Rosemary Valentine MD [address] [place] [address] [place] [address] 02/01/2024 3:00 PM EDT Nurse Only Ancillary [address] [place] [address] Kateryna, Annual Wellness [address] [place] [address] [place] [address] Health Maintenance Due Date Last Done Comments DXA Scan 01/04/2023 01/05/2020, 01/04/2015 COVID-19 Vaccine ( season) 2023 COLONOSCOPY-EVERY 5 YRS AGES 18-100 04/19/2023 04/19/2018, 04/19/2018, 09/29/2014, Additional history exists CKD PHOS USE SMARTSET 16544 07/03/202302/2023, 05/11/2021, 02/05/2020, Additional history exists GFR 07/22/2023 01/19/2023, 3, 10/03/2021, Additional history exists HbA1c 07/22/2023 01/19/2023, 0 02/2023, 10/03/2021, Additional history exists Albumin/Creatinine Ratio 08/04/2023 023, 05/11/2021, 07/29/2019, Additional history exists CKD HGB USE SMARTSET 11171 01/20/202401/19, 01/19/2023, 07/03/2022, Additional history exists Depression [...] encounter Medical Devices Implanted Type Area Data Integration Architect Device Identifier Shelf Expiration Date Model / Serial / Lot Lens Intraoc 19.5 - [id number] - [id number] Implanted:Qty: 1 on 03/17/2021 by Migel Dejesus MD at OR [facility] Left: Eye [employer]OM[employer] 10/22/2025 [id number] / [id number] / [id number] Lens Intraoc 20.0 - [id number] - [id number] Implanted:Qty: 1 on 03/31/2021 by Migel Dejesus MD at [facility] Right: Eye [employer]CH [employer] LOMB 12/22/2025 [id number] / [id number] / [id number] documented as of this encounter Advance Directives Healthcare Agents on File Name Relationship Healthcare Agent Relationshi p Communication Mimi Annbrittany Adult Child Health Care Repr esentative (appointed verbally by patient or by statute hierarchy) Yanci Adkins Adult Child Health Care Repr esentative (appointed verbally by patient or by statute hierarchy) Care Teams Funding Specialist Relationship Specialty Start Date End Date Rosemary Valentine MD [address] [place] [address] [place] [address] PCP - General Family Medicine 10/30/11 documented as of this encounter
--- OUTSIDE RECORDS SUMMARY | 2023-12-02 01:59 | External Medical Summary | Summary of Care ---
Author Name Unknown Organization [facility] Address [address] [place] [address] Phone [phone] Care Team Providers Care Medical Reimbursement Manager Name Role Phone Rosemary Valentine MD Primary Care Provide r Reason for Visit * Reason Onset Date Comments FYI 08/20/2023 Encounter Details Date Type Department Care Team (Late st Contact Info) Description 08/20/2023 Telephone Family Medicine [address] [phone] Rosemary Valentine MD [address] [place], [place] [address] [address] FYI Allergies Active Allergy Reactions Criticality Noted Date Comments Codeine Nausea/vomiting 08/15/2011 Propoxyphene N-Acetaminophen Nausea/vomiting Low 08/24/2008 Iodinated Contrast Media Hives 02/06/2023 Iodine Hives 01/08/2001 Latex 09/26/2012 Contact dermititis Nitrofurantoin Rash 09/07/2014 Metformin 04/12/2021 documented as of this encounter (statuses as of 08/21/2023) Medications Medication Sig Dispensed Refills Start Date [...] glucose E11.9 100 Strip 5 08/21/2022 Active PayDragonTouch UltraSoft LancetsIndications:T ype 2 diabetes mellitus with stage 3a chronic kidney disease, without long-term current use of insulin ([facility]) Use once daily to check [...] MORNING 90 Tablet 3 03/05/2023 Active Tiotropium [place] [facility] Monohydrate 18 MCG Inhalation Capsule (Spiriva)Indications :Moderate [...] 1,000 mcgIndications:Vitamin B12 deficiency 1000 mcg IM [id number] 02/06/2023 01/08/2024 Active documented as of this encounter (statuses as of 08/21/2023) Active Problems Problem Noted Date Diagnosed Date [...] as of this encounter (statuses as of 08/21/2023) Resolved Problems Problem Noted Date Diagnosed Date [...] Taxonomy. Impaired fasting glucose 06/23/200607/2011 LOC PRIM [id number] 04/16/200609/24 LOC PRIM OSTEOARTH-ANKLE 04/16/2006 Sprain of [...] as of this encounter (statuses as of 08/21/2023) Immunizations Name Administration Dates Next Due Pneumococcal [...] encounter Miscellaneous Notes * Telephone Encounter - Mini Diaz LPN - 08/21/2023 3:34 PM EST Mailed to pt. * Telephone Encounter - Greta Aden OSA - 08/20/2023 1:01 PM EST Patient is requesting copy of appointments to be sent through mail documented in this encounter Plan of Treatment Upcoming Encounters Date Type Department Care Team (Late st Contact Info) Description 08/23/2023 4:00 PM EST Nurse Only Ancillary [address] [place] [address] Samantha, Nurse [address] [place] [address] 09/18/2023 4:00 PM EDT Imaging Radiology[place] [address] [place] [address] 10/16/2023 3:00 PM EDT Office Visit Cardiology [address] [place] [address] Herberth Denny PA-C [address] [place] [address] 12/03/2023 2:00 PM EDT Office Visit Family Medicine [address] [place] [phone] Rosemary Valentine MD [address] [place] [address] [place] [address] 02/01/2024 3:00 PM EDT Nurse Only Ancillary [address] [place] [address] Kateryna, Annual Wellness [address] [place] [address] [place] [address] Health Maintenance Due Date Last Done Comments DXA Scan 01/04/2023 01/05/2020, 01/04/2015 COVID-19 Vaccine ( season) 2023 COLONOSCOPY-EVERY 5 YRS AGES 18-100 04/19/2023 04/19/2018, 04/19/2018, 09/29/2014, Additional history exists CKD PHOS USE SMARTSET 90768 07/03/202302/2023, 05/11/2021, 02/05/2020, Additional history exists GFR 07/22/2023 01/19/2023, 02/2023, 10/03/2021, Additional history exists HbA1c 07/22/2023 01/19/2023, 02/2023, 10/03/2021, Additional history exists Albumin/Creatinine Ratio 08/04/2023 023, 05/11/2021, 07/29/2019, Additional history exists CKD HGB USE SMARTSET 42465 01/20/202401/19, 01/19/2023, 07/03/2022, Additional history exists Depression [...] this encounter Medical Devices Implanted Type Area Railroad Crane Operator Device Identifier Shelf Expiration Date Model / Serial / Lot Lens Intraoc 19.5 - [id number] - [id number] Implanted:Qty: 1 on 03/17/2021 by Migel Dejesus MD at OR [facility] Left: Eye [employer]USCH [employer] LOMB 10/22/2025 [id number] / [id number] / [id number] Lens Intraoc 20.0 - [id number] - [id number] Implanted:Qty: 1 on 03/31/2021 by Migel Dejesus MD at OR [facility] Right: Eye BAUSCH & LOMB 12/22/2025 [id number] / [id number] / [id number] documented as of this encounter Advance Directives Healthcare Agents on File Name Relationship Healthcare Agent Relationshi p Communication Mimi Jarrell Adult Child Health Care Repr esentative (appointed verbally by patient or by statute hierarchy) Yanci Adkins Adult Child Health Care Repr esentative (appointed verbally by patient or by statute hierarchy) Care Teams Medical Reimbursement Manager Relationship Specialty Start Date End Date Rosemary Valentine MD [address] [place] [address] [place] [phone] PCP - General Family Medicine 10/30/11 documented as of this encounter
--- OUTSIDE RECORDS SUMMARY | 2023-12-02 01:59 | External Medical Summary | Summary of Care ---
Author Name Unknown Organization [facility] Address [address] [place] [address] Phone [phone] Care Team Providers Care Front Maker Name Role Phone Rosemary Valentine MD Primary Care Provide r Reason for Visit * Reason Onset Date Comments Medication Refill 08/21/2023 Encounter Details Date Type Department Care Team (Late st Contact Info) Description 08/21/2023 Refill Family Medicine [address] [phone] Rosemary Valentine MD [address] [place], [place] [address] [address] Allergies Active Allergy Reactions Criticality Noted Date Comments Codeine Nausea/vomiting 08/15/2011 Propoxyphene N-Acetaminophen Nausea/vomiting Low 08/24/2008 Iodinated Contrast Media Hives 02/06/2023 Iodine Hives 01/08/2001 Latex 09/26/2012 Contact dermititis Nitrofurantoin Rash 09/07/2014 Metformin 04/12/2021 documented as of this encounter (statuses as of 08/22/2023) Medications Medication Sig Dispensed Refills Start Date [...] glucose E11.9 100 Strip 5 08/21/2022 Active SmartSynchTouch UltraSoft LancetsIndications :Type 2 diabetes mellitus with [...] MORNING 90 Tablet 3 03/05/2023 Active Tiotropium [place] Monohydrate 18 MCG Inhalation Capsule (Spiriva)Indicatio ns:Moderate [...] the evening. 225 Tablet 3 08/22/2023 Active Metoprolol Tartrate 50 MG Oral Tablet (Lopressor) take 1 and 1/2 tablets in the morning and 1 tablet in the evening. 225 Tablet 3 08/17/2022 4 Discontinue d(Refill) Irbesartan 150 MG Oral Tablet (Avapro) TAKE 1 TABLET BY MOUTH EVERY MORNING 90 Tablet 3 08/17/2022 4 Discontinue d(Refill) Levothyroxine Sodium 150 MCG Oral Tablet (Levoxyl) Take 1 Tablet by mouth daily first thing in the morning. (at least 30 min prior to breakfast or other meds) 30 Tablet 8 02/08/2023 4 Discontinue d(Refill) Hospital, Clinic, or Other Facility Administered Medication Ordered Dose Route Frequency Start Date End Date Status vitamin b-12 (Cyanocobalamin) inj 1,000 mcgIndications:Vitamin B12 deficiency 1000 mcg IM [id number] 02/06/2023 01/08/2024 Active documented as of this encounter (statuses as of 08/22/2023) Active Problems Problem Noted Date Diagnosed Date [...] as of this encounter (statuses as of 08/22/2023) Resolved Problems Problem Noted Date Diagnosed Date [...] Taxonomy. Impaired fasting glucose 06/23/200607/2011 LOC PRIM [id number] 04/16/200609/24 LOC PRIM OSTEOARTH-ANKLE 04/16/2006 Sprain of [...] as of this encounter (statuses as of 08/22/2023) Immunizations Name Administration Dates Next Due Pneumococcal [...] encounter Miscellaneous Notes * Telephone Encounter - Corrina Stevenson [facility] - 08/22/2023 6:27 AM ESTSigned Prescriptions: Disp Refills Irbesartan 150 MG Oral Tablet (Avapro) 90 Tab*1 Sig: Take 1 Tablet by mouth in the morning. Authorizing Provider: ROSEMARY VALENTINE Ordering User: CORRINA STEVENSON Levothyroxine Sodium 150 MCG Oral Tablet (*90 Tab*1 Sig: Take 1 Tablet by mouth daily first thing in the morning. (at least 30 min prior to breakfast or other meds) Authorizing Provider: ROSEMARY VALENTINE Ordering User: CORRINA STEVENSON Metoprolol Tartrate 50 MG Oral Tablet (Lop*225 Ta*3 Sig: take 1 and 1/2 tablets in the morning and 1 tablet in the evening. Authorizing Provider: ROSEMARY VALENTINE Ordering User: CORRINA STEVENSON Electronically signed by Corrina Stevenson [facility] at 08/22/2023 6:27 AM EST * Telephone Encounter - Bry Gan, office machines sales representative - 08/21/2023 8:50 AM EST Did you pend patient's preferred pharmacy and medication before forwarding?yes Pharmacy: [id number] [address] [facility] Pending Prescriptions: Disp Refills Irbesartan 150 MG Oral Tablet (Avapro) 90 Tab*3 Sig: Take 1 Tablet by mouth in the morning. In the morning.. Levothyroxine Sodium 150 MCG Oral Tablet *30 Tab*8 Sig: Take 1 Tablet by mouth daily first thing in the morning. (at least 30 min prior to breakfast or other meds) Metoprolol Tartrate 50 MG Oral Tablet (Lo*225 Ta*3 Sig: take 1 and 1/2 tablets in the morning and 1 tablet in the evening. Last Visit: 04/13/2023 (in office), Visit date not found (telemedicine) Next Visit: 12/03/2023 If no future appointments scheduled, and last appointment is greater than a year ago, please schedule patient for a follow-up appointment Last date the medication was ordered: 08/17/2022, 02/08/2023 Is this request for a controlled substance?No [...] 08/23/2023 4:00 PM EST Nurse Only Ancillary [address] [place] [address] Samantha Nurse g [address] [place] [address] [place] [address] 09/18/2023 4:00 PM EDT Imaging Radiology, [address] [place] [address] 10/16/2023 3:00 PM EDT Office Visit Cardiology [address] [place] [address] Herberth Denny PA-C [address] [place] [address] 12/03/2023 2:00 PM EDT Office Visit Family Medicine [address] [place] [phone] Rosemary Valentine MD [address] [place] [address] [place] [address] 02/01/2024 3:00 PM EDT Nurse Only Ancillary [address] [place] [address] Kateryna, Annual [address] [place] [address] Health Maintenance Due Date Last Done Comments DXA Scan 01/04/2023 01/05/2020, 01/04/2015 COVID-19 Vaccine ( season) 2023 COLONOSCOPY-EVERY 5 YRS AGES 18-100 04/19/2023 04/19/2018, 04/19/2018, 09/29/2014, Additional history exists CKD PHOS USE SMARTSET 62277 07/03/202302/2023, 05/11/2021, 02/05/2020, Additional history exists GFR 07/22/2023 01/19/2023, 02/2023, 10/03/2021, Additional history exists HbA1c 07/22/2023 01/19/2023, 02/2023, 10/03/2021, Additional history exists Albumin/Creatinine Ratio 08/04/2023 023, 05/11/2021, 07/29/2019, Additional history exists CKD HGB USE SMARTSET 55007 01/20/202401/19, 01/19/2023, 07/03/2022, Additional history exists Depression [...] this encounter Medical Devices Implanted Type Area Warehouse Man Device Identifier Shelf Expiration Date Model / Serial / Lot Lens Intraoc 19.5 - [id number] - [id number] Implanted:Qty: 1 on 03/17/2021 by Migel Dejesus MD at [facility] Left: Eye BAUSCH [employer] LOMB 10/22/2025 [id number] / [id number] / [id number] Lens Intraoc 20.0 - [id number] - [id number] Implanted:Qty: 1 on 03/31/2021 by Migel Dejesus MD at OR [facility] Right: Eye BAUSCH & LOMB 12/22/2025 [id number] / [id number] / [id number] documented as of this encounter Advance Directives Healthcare Agents on File Name Relationship Healthcare Agent Relationshi p Communication Mimi Annshaniceraf Adult Child Health Care Repr esentative (appointed verbally by patient or by statute hierarchy) Yanci Adkins Adult Child Health Care Repr esentative (appointed verbally by patient or by statute hierarchy) Care Teams Front Maker Relationship Specialty Start Date End Date Rosemary Valentine MD [address] [place] [address] [place] [phone] PCP - General Family Medicine 10/30/11 documented as of this encounter
--- OUTSIDE RECORDS SUMMARY | 2023-12-02 01:59 | External Medical Summary | Summary of Care ---
Author Name Unknown Organization [facility] Address [address] [place] [address] Phone [phone] Care Team Providers Care Experimental Box Tester Name Role Phone Rosemary Valentine MD Primary Care Provide r Reason for Visit * Reason Onset Date Comments Medication Refill 08/03/2023 Encounter Details Date Type Department Care Team (Late st Contact Info) Description 08/03/2023 Refill Family Medicine [address] [phone] Rosemary Valentine MD [address] [place], [place] [address] [address] Anxiety Allergies Active Allergy Reactions Criticality Noted Date Comments Codeine Nausea/vomiting 08/15/2011 Propoxyphene N-Acetaminophen Nausea/vomiting Low 08/24/2008 Iodinated Contrast Media Hives 02/06/2023 Iodine Hives 01/08/2001 Latex 09/26/2012 Contact dermititis Nitrofurantoin Rash 09/07/2014 Metformin 04/12/2021 documented as of this encounter (statuses as of 08/03/2023) Medications Medication Sig Dispensed Refills Start Date [...] 11/24/2020 Active Additional Information Patient taking differently:2 [place] Each Nostril Daily(AM),Indications: stuffy nose, Reported on [...] BY MOUTH IN THE MORNING 90 Tablet 08/17/2022 Active Metoprolol Tartrate 50 MG Oral [...] gone 6 Tablet 0 05/03/2023 Active Tiotropium [place] Monohydrate 18 MCG Inhalation Capsule (Spiriva)Indicati ons:Moderate [...] 07/28/2023 Active ALPRAZolam 0.5 MG Oral Tablet (xaNAX)Indication s:Anxiety take 1 tablet in the morning and evening if needed for anxiety 60 Tablet 0 08/03/2023 Active ALPRAZolam 0.5 MG Oral Tablet (xaNAX)Indication s:Anxiety take 1 tablet in the morning and evening if needed for anxiety 60 Tablet 0 07/05/2023 Discontinue d(Refill) Hospital, Clinic, or Other Facility Administered Medication Ordered Dose Route Frequency Start Date End Date Status vitamin b-12 (Cyanocobalamin) inj 1,000 mcgIndications:Vitamin B12 deficiency 1000 mcg IM [id number] 02/06/2023 01/08/2024 Active documented as of this encounter (statuses as of 08/03/2023) Active Problems Problem Noted Date Diagnosed Date [...] as of this encounter (statuses as of 08/03/2023) Resolved Problems Problem Noted Date Diagnosed Date [...] Taxonomy. Impaired fasting glucose 06/23/200607/2011 LOC PRIM [id number] 04/16/200609/24 LOC PRIM OSTEOARTH-ANKLE 04/16/2006 Sprain of [...] as of this encounter (statuses as of 08/03/2023) Immunizations Name Administration Dates Next Due Pneumococcal [...] Telephone Encounter - Rosemary Valentine MD - 08/03/2023 10:14 AM EST Signed Prescriptions: Disp Refills ALPRAZolam 0.5 MG Oral Tablet (xaNAX) 60 Tab*0 Sig: take 1 tablet in the morning and evening if needed for anxiety Authorizing Provider: ROSEMARY VALENTINE * Telephone Encounter - Corrina Us [facility] - 08/03/2023 9:59 AM EST Pending Prescriptions: Disp Refills ALPRAZolam 0.5 MG Oral Tablet (xaNAX) 60 Tab*0 Sig: take 1 tablet in the morning and evening if needed for anxiety * Telephone Encounter - Corrina Us [facility] - 08/03/2023 9:57 AM EST I have reviewed the patients controlled substance dispensing history in the Prescription Drug Monitoring Program in compliance with the [facility] regulations before prescribing a controlled substance. PDMP checked on 08/03/2023. Pending Prescriptions: Disp Refills ALPRAZolam 0.5 MG Oral Tablet (xaNAX) 60 Tab*0 Sig: take 1 tablet in the morning and evening if needed for anxiety Last Visit: 04/13/2023 (in office), Visit date not found (telemedicine) Next Visit: 12/03/2023 Date medication was last filled: 07/05 Date medication is due for refill: 08/03 [facility]acy: [id number] Is this request for a controlled substance? Yes and Urine Drug Screen Not completed Toxicology results: No results found. However, due to the size of the patient record, not all encounters were searched.Please check Results Review for a complete set of results. Please approve if appropriate. Thank you, Corrina Us, Gina. Clinical Pharmacist [facility] ([facility]) (formerly Telepharmacy) 08/03/2023, 9:57 AM * Telephone Encounter - Luisito Gonzales checker loader - 08/03/2023 9:44 AM EST Pt has a "few" pills remaining. Did you pend patient's preferred pharmacy and medication before forwarding?yes Pharmacy: [facility] [id number] Pending Prescriptions: Disp Refills ALPRAZolam 0.5 MG Oral Tablet (xaNAX) 60 Tab*0 Sig: take 1 tablet in the morning and evening if needed for anxiety Last Visit: 04/13/2023 (in office), Visit date not found (telemedicine) Next Visit: 12/03/2023 If no future appointments scheduled, and last appointment is greater than a year ago, please schedule patient for a follow-up appointment Last date the medication was ordered: 07/05/2023 Is this request for a controlled substance?Yes, What was the last refill date 07/05/2023 w/ [id number] and dosage 0.5 and Urine Drug Screen [...] 08/17/2023 3:20 PM EST Nurse Only Ancillary [address] [place] [address] Nurse Samantha [address] [place] [address] 09/18/2023 4:00 PM EDT Imaging Radiology, [address] [place] [address] 10/16/2023 3:00 PM EDT Office Visit Cardiology [address] [place] [address] Herberth eDnny PA-C [address] [place] [address] 12/03/2023 2:00 PM EDT Office Visit Family Medicine [address] [place] [phone] Rosemary Valentine MD [address] [place] [address] [place] [address] 02/01/2024 3:00 PM EDT Nurse Only Ancillary [address] [place] [address] [place], Nurse Annual Wellness [address] [place] [address] [place] [address] Health Maintenance Due Date Last Done Comments COVID-19 Vaccine (#1) 1943 Hepatitis B (1 of 3 - Risk 3-dose series) 2003 DXA Scan 01/04/2023 01/05/2020, 01/04/2015 COLONOSCOPY-EVERY 5 YRS AGES 18-100 04/19/2023 04/19/2018, 04/19/2018, 09/29/2014, Additional history exists CKD PHOS USE SMARTSET 05225 07/03/202302/2023, 05/11/2021, 02/05/2020, Additional history exists GFR 07/22/2023 01/19/2023, 0 02/2023, 10/03/2021, Additional history exists HbA1c 07/22/2023 01/19/2023, 0 02/2023, 10/03/2021, Additional history exists Albumin/Creatinine Ratio 08/04/2023 023, 05/11/2021, 07/29/2019, Additional history exists CKD HGB USE SMARTSET 41972 01/20/202401/19, 01/19/2023, 07/03/2022, Additional history exists Depression [...] this encounter Medical Devices Implanted Type Area Senior Professional Services Consultant Device Identifier Shelf Expiration Date Model / Serial / Lot Lens Intraoc 19.5 - [id number] - [id number] Implanted:Qty: 1 on 03/17/2021 by Migel Dejesus MD at OR [facility] Left: Eye BAUSCH [employer] LOMB 10/22/2025 [id number] / [id number] / [id number] Lens Intraoc 20.0 - [id number] - [id number] Implanted:Qty: 1 on 03/31/2021 by Migel Dejesus MD at OR [facility] Right: Eye BAUSCH & LOMB 12/22/2025 [id number] / [id number] / [id number] documented as of this encounter Visit Diagnoses Diagnosis Anxiety Anxiety state, unspecified documented in this encounter Advance Directives Healthcare Agents on File Name Relationship Healthcare Agent Relationshi p Communication Mimi Vieyra Adult Child Health Care Repr esentative (appointed verbally by patient or by statute hierarchy) Yanci Adkins Adult Child Health Care Repr esentative (appointed verbally by patient or by statute hierarchy) Care Teams Experimental Box Tester Relationship Specialty Start Date End Date Rosemary Valentine MD [address] [place] [address] [place] [address] PCP - General Family Medicine 10/30/11 documented as of this encounter
--- OUTSIDE RECORDS SUMMARY | 2023-12-02 01:59 | External Medical Summary | Summary of Care ---
Author Name Unknown Organization [facility] Address [address] [place] [address] Phone [phone] Care Team Providers Care Kennel Worker Name Role Phone Rosemary Valentine MD Primary Care Provide r Encounter Details Date Type Department Care Team (Late st Contact Info) Description 08/14/2023 Population Health External Data Unspecified Department Allergies [...] current use of insulin ([facility]) Use once daily to check glucose [...] and 1 Puff before bedtime. 180 Each 11/10/2022 Active Docusate Sodium 100 MG Oral Capsule (Colace) Take 1 Capsule by mouth 2 times a day as needed for Constipation. Patient taking daily at bedtime 0 Active Pantoprazole Sodium 20 MG Oral Tablet Delayed Release (Protonix)Indication s:Gastroesophageal reflux disease with esophagitis without hemorrhage Take 1 Tablet by mouth in the morning and 1 Tablet in the evening. 180 Tablet 01/19/2023 Active Levothyroxine Sodium 150 MCG Oral [...] MORNING 90 Tablet 3 03/05/2023 Active Tiotropium [place] Monohydrate 18 MCG Inhalation Capsule (Spiriva)Indications :Moderate [...] 1,000 mcgIndications:Vitamin B12 deficiency 1000 mcg IM [id number] 02/06/2023 01/08/2024 Active documented as of this [...] Taxonomy. Impaired fasting glucose 06/23/200607/2011 LOC PRIM [id number] 04/16/200609/24 LOC PRIM OSTEOARTH-ANKLE 04/16/2006 Sprain of [...] 08/23/2023 4:00 PM EST Nurse Only Ancillary [address] [place] [address] Samantha Nurse [address] [place] [address] 09/18/2023 4:00 PM EDT Imaging Radiology, [address] [place] [address] 10/16/2023 3:00 PM EDT Office Visit Cardiology [address] [place] [address] Herberth Denny PA-C [address] [place] [address] 12/03/2023 2:00 PM EDT Office Visit Family Medicine [address] [place] [phone] Rosemary Valentine MD [address] [place] [address] [place] [address] 02/01/2024 3:00 PM EDT Nurse Only Ancillary [address] [place] [address] [place], Nurse Annual Wellness [address] [place] [address] [place] [address] Health Maintenance Due Date Last Done Comments DXA Scan 01/04/2023 01/05/2020, 01/04/2015 COVID-19 Vaccine ( season) 2023 COLONOSCOPY-EVERY 5 YRS AGES 18-100 04/19/2023 04/19/2018, 04/19/2018, 09/29/2014, Additional history exists CKD PHOS USE SMARTSET 45107 07/03/20230 02/2023, 05/11/2021, 02/05/2020, Additional history exists GFR 07/22/2023 01/19/2023, 0 02/2023, 10/03/2021, Additional history exists HbA1c 07/22/2023 01/19/2023, 0 02/2023, 10/03/2021, Additional history exists Albumin/Creatinine Ratio 08/04/2023 023, 05/11/2021, 07/29/2019, Additional history exists CKD HGB USE SMARTSET 60472 01/20/202401/19, 01/19/2023, 07/03/2022, Additional history exists Depression [...] this encounter Medical Devices Implanted Type Area Service Delivery Supervisor Device Identifier Shelf Expiration Date Model / Serial / Lot Lens Intraoc 19.5 - [id number] - [id number] Implanted:Qty: 1 on 03/17/2021 by Migel Dejesus MD at OR [facility] Left: Eye BAUSCH & LOMB 10/22/2025 [id number] / [id number] / [id number] Lens Intraoc 20.0 - [id number] - [id number] Implanted:Qty: 1 on 03/31/2021 by Migel Dejesus MD at OR [facility] Right: Eye BAUSCH & LOMB 12/22/2025 [id number] / [id number] / [id number] documented as of this encounter Advance Directives Healthcare Agents on File Name Relationship Healthcare Agent Relationshi p Communication Mimi Vieyra Adult Child Health Care Repr esentative (appointed verbally by patient or by statute hierarchy) Yanci Adkins Adult Child Health Care Repr esentative (appointed verbally by patient or by statute hierarchy) Care Teams Kennel Worker Relationship Specialty Start Date End Date Rosemary Valentine MD [address] [place] [address] [place] [phone] PCP - General Family Medicine 10/30/11 documented as of this encounter
--- OUTSIDE RECORDS SUMMARY | 2023-12-02 02:00 | External Medical Summary | Summary of Care ---
Author Name Unknown Organization [facility] Address [address] [place] [address] Phone [phone] Care Team Providers Care Cardiovascular Technologist Name Role Phone Rosemary Valentine MD Primary Care Provide r Encounter Details Date Type Department Care Team (Late st Contact Info) Description 07/05/2023 Population Health External Data Unspecified Department Allergies Active Allergy Reactions Criticality Noted Date Comments Codeine Nausea/vomiting 08/15/2011 Propoxyphene N-Acetaminophen Nausea/vomiting Low 08/24/2008 Iodinated Contrast Media Hives 02/06/2023 Iodine Hives 01/08/2001 Latex 09/26/2012 Contact dermititis Nitrofurantoin Rash 09/07/2014 Metformin 04/12/2021 documented as of this encounter (statuses as of 07/09/2023) Medications Medication Sig Dispensed Refills Start Date [...] 11/24/2020 Active Additional Information Patient taking differently:2 [place] Each Nostril Daily(AM),Indications: stuffy nose, Reported on [...] reported), Informant: At Discharge, Reported on 12/25/2022 hydroCHLOROthiazide 12.5 MG Oral Tablet (Hydrodiuril) TAKE [...] disease, without long-term current use of insulin ([facility]) Use once daily to check glucose E11.9 100 Strip 08/21/2022 Active OneTouch UltraSoft LancetsIndications: Type 2 diabetes mellitus with stage 3a chronic kidney disease, without long-term current use of insulin ([facility]) Use once daily to check [...] THE MORNING 90 Tablet 3 03/05/2023 Active Nirmatrelvir&Ritona vir 300/100 20 x 150 MG & 10 [...] gone 6 Tablet 0 05/03/2023 Active Tiotropium [place] Monohydrate 18 MCG Inhalation Capsule (Spiriva)Indication s:Moderate [...] or Wheezing. 18 g 5 06/07/2023 Active Ondansetron HCl 4 MG Oral Tablet (Zofran)Indications :Nausea without vomiting take 1 tablet every 6 hours as needed for nausea. 30 Tablet 2 06/12/2023 Active ALPRAZolam 0.5 MG Oral Tablet (xaNAX)Indications: Anxiety take 1 tablet in the morning and evening if needed for anxiety 60 Tablet 0 07/05/2023 Active Hospital, Clinic, or Other Facility Administered Medication Ordered Dose Route Frequency Start Date End Date Status vitamin b-12 (Cyanocobalamin) inj 1,000 mcgIndications:Vitamin B12 deficiency 1000 mcg IM [id number] 02/06/2023 01/08/2024 Active documented as of this encounter (statuses as of 07/09/2023) Active Problems Problem Noted Date Diagnosed Date [...] as of this encounter (statuses as of 07/09/2023) Resolved Problems Problem Noted Date Diagnosed Date [...] Taxonomy. Impaired fasting glucose 06/23/200607/2011 LOC PRIM [id number] 04/16/200609/24 LOC PRIM OSTEOARTH-ANKLE 04/16/2006 Sprain of [...] as of this encounter (statuses as of 07/09/2023) Immunizations Name Administration Dates Next Due Pneumococcal [...] Care Team (Late st Contact Info) Description 07/20/2023 4:20 PM EST Nurse Only Ancillary [place] [address] [place] [phone] [place] [address] [place] [address] 09/18/2023 4:00 PM EDT Imaging Radiology, [address] [place] [address] 10/16/2023 3:00 PM EDT Office Visit Cardiology [address] [place] [address] Herberth Denny PA-Nithin [address] [place] [address] 12/03/2023 2:00 PM EDT Office Visit Family Medicine [address] [place] [phone] Rosemary Valentine MD [address] [place] [address] [place] [address] 02/01/2024 3:00 PM EDT Nurse Only Ancillary [address] [place] [address] [place], Nurse Annual Wellness [address] [place] [address] [place] [address] Health Maintenance Due Date Last Done Comments COVID-19 Vaccine (#1) 1945 Hepatitis B (1 of 3 - Risk 3-dose series) 2003 Diabetic Eye Exam 11/28/2022 11/28/2021, , 08/20/2020, Additional history exists DXA Scan 01/04/2023 01/05/2020, 01/04/2015 COLONOSCOPY-EVERY 5 YRS AGES 18-100 04/19/2023 04/19/2018, 04/19/2018, 09/29/2014, Additional history exists CKD PHOS USE SMARTSET 88628 07/03/202302/2023, 05/11/2021, 02/05/2020, Additional history exists GFR 07/22/2023 01/19/2023, 02/2023, 10/03/2021, Additional history exists HbA1c 07/22/2023 01/19/2023, 01/0 02/2023, 10/03/2021, Additional history exists Albumin/Creatinine Ratio 08/04/2023 023, 05/11/2021, 07/29/2019, Additional history exists CKD HGB USE SMARTSET 09337 01/20/202401/19, 01/19/2023, 07/03/2022, Additional history exists Depression [...] this encounter Medical Devices Implanted Type Area Carpenter Repair Device Identifier Shelf Expiration Date Model / Serial / Lot Lens Intraoc 19.5 - [id number] - [id number] Implanted:Qty: 1 on 03/17/2021 by Migel Dejesus MD at OR [facility] Left: Eye [employer]CH [employer] LOMB 10/22/2025 [id number] / [id number] / [id number] Lens Intraoc 20.0 - [id number] - [id number] Implanted:Qty: 1 on 03/31/2021 by Migel Dejesus MD at OR [facility] Right: Eye BA[employer]CH [employer] LOMB 12/22/2025 [id number] / [id number] / [id number] documented as of this encounter Advance Directives Healthcare Agents on File Name Relationship Healthcare Agent Relationshi p Communication Mimi Vieyra Adult Child Health Care Repr esentative (appointed verbally by patient or by statute hierarchy) Yanci Adkins Adult Child Health Care Repr esentative (appointed verbally by patient or by statute hierarchy) Care Teams Cardiovascular Technologist Relationship Specialty Start Date End Date Rosemary Valentine MD [address] [place] [address] [place] [address] PCP - General Family Medicine 10/30/11 documented as of this encounter
--- OUTSIDE RECORDS SUMMARY | 2023-12-02 02:00 | External Medical Summary | Summary of Care ---
Author Name Unknown Organization [facility] Address [address] [place] [address] Phone [phone] Care Team Providers Care Brine Tank Operator Name Role Phone Rosemary Valentine MD Primary Care Provide r Reason for Visit * Reason Onset Date Comments Advice 07/03/2023 Encounter Details Date Type Department Care Team (Late st Contact Info) Description 07/03/2023 Telephone Family Medicine [address] [phone] Rosemary Valentine MD [address] [place], [place] [address] [address] Advice Allergies Active Allergy Reactions Criticality Noted Date Comments Codeine Nausea/vomiting 08/15/2011 Propoxyphene N-Acetaminophen Nausea/vomiting Low 08/24/2008 Iodinated Contrast Media Hives 02/06/2023 Iodine Hives 01/08/2001 Latex 09/26/2012 Contact dermititis Nitrofurantoin Rash 09/07/2014 Metformin 04/12/2021 documented as of this encounter (statuses as of 07/04/2023) Medications Medication Sig Dispensed Refills Start Date [...] 11/24/2020 Active Additional Information Patient taking differently:2 [place] Each Nostril Daily(AM),Indications: stuffy nose, Reported on 05/03/2022 Cyanocobalamin 1000 MCG/ML Injection Solution (Cyanocobalamin) Inject as directed 1,000 mcg every 30 days . 1 mL 09/13/2021 Active OneTouch Verio w/Device KitIndications:Type 2 [...] gone 6 Tablet 0 05/03/2023 Active Tiotropium [place] Monohydrate 18 MCG Inhalation Capsule (Spiriva)Indication s:Moderate persistent asthma without complication Inhale 1 Capsule by mouth in the morning. For inhaler only, do not swallow.. 30 Capsule 12 05/14/2023 Active ALPRAZolam 0.5 MG Oral Tablet (xaNAX)Indications: Anxiety take 1 tablet in the morning and evening if needed for anxiety 60 Tablet 0 06/05/2023 Active Albuterol Sulfate HFA 108 (90 Base) [...] for nausea. 30 Tablet 2 06/12/2023 Active Hospital, Clinic, or Other Facility Administered Medication Ordered Dose Route Frequency Start Date End Date Status vitamin b-12 (Cyanocobalamin) inj 1,000 mcgIndications:Vitamin B12 deficiency 1000 mcg IM [id number] 02/06/2023 01/08/2024 Active documented as of this encounter (statuses as of 07/04/2023) Active Problems Problem Noted Date Diagnosed Date [...] as of this encounter (statuses as of 07/04/2023) Resolved Problems Problem Noted Date Diagnosed Date [...] Taxonomy. Impaired fasting glucose 06/23/200607/2011 LOC PRIM [id number] 04/16/200609/24 LOC PRIM OSTEOARTH-ANKLE 04/16/2006 Sprain of [...] as of this encounter (statuses as of 07/04/2023) Immunizations Name Administration Dates Next Due Pneumococcal [...] encounter Miscellaneous Notes * Telephone Encounter - Yasmin Raymundo RN - 07/04/2023 7:14 AM EST Called an offered an appt for today, pt declined, she will wait and see if she gets better * Telephone Encounter - Mimi Hernandez OSA - 07/03/2023 4:49 PM EST Pt called in advise she has a sinus infection and will like something/ Medication call in to pharmacy advise she has some medication at home but due to medical issue can take please call pt and advise. Thank you GAURAV Sesay documented in this encounter Plan of Treatment Upcoming Encounters Date Type Department Care Team (Late st Contact Info) Description 07/09/2023 4:00 PM EST Nurse Only Ancillary [address] [place] [address] Nurse Samantha [address] [place] [address] 10/16/2023 3:00 PM EDT Office Visit Cardiology [address] [place] [address] Herberth Denny PA-C [address] [facility] [place] [address] 12/03/2023 2:00 PM EDT Office Visit Family Medicine [address] [place] [phone] Rosemary Valentine MD [address] [place] [address] [place] [address] 02/01/2024 3:00 PM EDT Nurse Only Ancillary [address] [place] [address] Kateryna Nurse Annual Wellness [address] [place] [address] [place] [address] Health Maintenance Due Date Last Done Comments COVID-19 Vaccine (#1) 1945 Hepatitis B (1 of 3 - Risk 3-dose series) 2003 Diabetic Eye Exam 11/28/2022 11/28/2021, , 08/20/2020, Additional history exists DXA Scan 01/04/2023 01/05/2020, 01/04/2015 COLONOSCOPY-EVERY 5 YRS AGES 18-100 04/19/2023 04/19/2018, 04/19/2018, 09/29/2014, Additional history exists CKD PHOS USE SMARTSET 83614 07/03/20230 02/2023, 05/11/2021, 02/05/2020, Additional history exists GFR 07/22/2023 01/19/2023, 01/0 02/2023, 10/03/2021, Additional history exists HbA1c 07/22/2023 01/19/2023, 01/0 02/2023, 10/03/2021, Additional history exists Albumin/Creatinine Ratio 08/04/2023 023, 05/11/2021, 07/29/2019, Additional history exists CKD HGB USE SMARTSET 85192 01/20/202401/19, 01/19/2023, 07/03/2022, Additional history exists Depression [...] this encounter Medical Devices Implanted Type Area Authorizer Device Identifier Shelf Expiration Date Model / Serial / Lot Lens Intraoc 19.5 - [id number] - [id number] Implanted:Qty: 1 on 03/17/2021 by Migel Dejesus MD at OR [facility] Left: Eye [employer]USCH [employer] LOMB 10/22/2025 [id number] / [id number] / [id number] Lens Intraoc 20.0 - [id number] - [id number] Implanted:Qty: 1 on 03/31/2021 by Migel Dejesus MD at OR [facility] Right: Eye BAUSCH & LOMB 12/22/2025 [id number] / [id number] / [id number] documented as of this encounter Advance Directives Healthcare Agents on File Name Relationship Healthcare Agent Relationshi p Communication Mimi Vieyra Adult Child Health Care Repr esentative (appointed verbally by patient or by statute hierarchy) Yanci Adkins Adult Child Health Care Repr esentative (appointed verbally by patient or by statute hierarchy) Care Teams Brine Tank Operator Relationship Specialty Start Date End Date Rosemary Valentine MD [address] [place] [address] [place] [address] PCP - General Family Medicine 10/30/11 documented as of this encounter
--- OUTSIDE RECORDS SUMMARY | 2023-12-02 02:00 | External Medical Summary | Summary of Care ---
Author Name Unknown Organization [facility] Address [address] [place] [address] Phone [phone] Care Team Providers Care Commodities Broker Name Role Phone Rosemary Valentine MD Primary Care Provide r Reason for Visit * Reason Onset Date Comments Medication Refill 06/07/2023 Encounter Details Date Type Department Care Team (Late st Contact Info) Description 06/07/2023 Refill Family Medicine [address] [phone] Rosemary Valentine MD [address] [place] [address] [place] [address] Intermittent asthma with reliever use up to twice per week without complication; SOB (shortness of breath) Allergies Active Allergy Reactions Criticality Noted Date Comments Codeine Nausea/vomiting 08/15/2011 Propoxyphene N-Acetaminophen Nausea/vomiting Low 08/24/2008 Iodinated Contrast Media Hives 02/06/2023 Iodine Hives 01/08/2001 Latex 09/26/2012 Contact dermititis Nitrofurantoin Rash 09/07/2014 Metformin 04/12/2021 documented as of this encounter (statuses as of 06/07/2023) Medications Medication Sig Dispensed Refills Start Date [...] 11/24/2020 Active Additional Information Patient taking differently:2 [place] Each Nostril Daily(AM),Indications: stuffy nose, Reported on 05/03/2022 Cyanocobalamin 1000 MCG/ML Injection Solution (Cyanocobalamin) Inject as directed 1,000 mcg every 30 days . 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 (on Mondays) 6 mL 3 02/20/2023 Active Ezetimibe 10 MG Oral Tablet (Zetia)Indication s:Dyslipidemia, goal LDL below 70 TAKE ONE TABLET BY MOUTH IN THE MORNING 90 Tablet 3 03/05/2023 Active Ondansetron HCl 4 MG Oral Tablet (Zofran)Indicatio ns:Nausea without vomiting take 1 tablet every 6 hours as needed for nausea. 30 Tablet 2 04/20/2023 Active Nirmatrelvir&Ascencion navir 300/100 20 x 150 [...] gone 6 Tablet 0 05/03/2023 Active Tiotropium [place] Monohydrate 18 MCG Inhalation Capsule (Spiriva)Indicati ons:Moderate persistent asthma without complication Inhale 1 Capsule by mouth in the morning. For inhaler only, do not swallow.. 30 Capsule 12 05/14/2023 Active ALPRAZolam 0.5 MG Oral Tablet (xaNAX)Indication [...] or Wheezing. 18 g 5 06/07/2023 Active Albuterol Sulfate HFA 108 (90 Base) MCG/ACT Inhalation Aerosol SolutionIndicatio ns:Intermittent asthma with reliever use up to twice per week without complication,SOB (shortness of breath) Inhale 2 Puffs by mouth every 6 hours as needed for Shortness of Breath or Wheezing. 18 g 5 10/03/2022 3 Discontinue d(Refill) Hospital, Clinic, or Other Facility Administered Medication Ordered Dose Route Frequency Start Date End Date Status vitamin b-12 (Cyanocobalamin) inj 1,000 mcgIndications:Vitamin B12 deficiency 1000 mcg IM [id number] 02/06/2023 01/08/2024 Active documented as of this encounter (statuses as of 06/07/2023) Active Problems Problem Noted Date Diagnosed Date [...] as of this encounter (statuses as of 06/07/2023) Resolved Problems Problem Noted Date Diagnosed Date [...] Taxonomy. Impaired fasting glucose 06/23/200607/2011 LOC PRIM [id number] 04/16/200609/24 LOC PRIM OSTEOARTH-ANKLE 04/16/2006 Sprain of [...] as of this encounter (statuses as of 06/07/2023) Immunizations Name Administration Dates Next Due Pneumococcal [...] encounter Miscellaneous Notes * Telephone Encounter - Lolis Chamorro RPh - 06/07/2023 5:25 PM EST Signed Prescriptions: Disp Refills Albuterol Sulfate HFA 108 (90 Base) MCG/AC*18 g 5 Sig: Inhale 2 Puffs by mouth every 6 hours as needed for Shortness of Breath or Wheezing. Authorizing Provider: ROSEMARY VALENTINE Ordering User: LOLIS CHAMORRO * Telephone Encounter - Goldie Younger, house mover supervisor - 06/07/2023 2:33 PM EST Did you pend patient's preferred pharmacy and medication before forwarding?yes Pharmacy: [id number] [address] [facility] Pending Prescriptions: Disp Refills Albuterol Sulfate HFA 108 (90 Base) MCG/A*18 g 5 Sig: Inhale 2 Puffs by mouth every 6 hours as needed for Shortness of Breath or Wheezing. Last Visit: 04/13/2023 (in office), Visit date not found (telemedicine) Next Visit: 12/03/2023 If no future appointments scheduled, and last appointment is greater than a year ago, please schedule patient for a follow-up appointment Last date the medication was ordered: 10/03/2022 Is this request for a controlled substance?No [...] 07/09/2023 4:00 PM EST Nurse Only Ancillary [address] [place] [address] [place], Nurse [address] [place] [address] 10/16/2023 3:00 PM EDT Office Visit Cardiology [address] [place] [address] Herberth Denny PA-Nithin [address] [place] [address] 12/03/2023 2:00 PM EDT Office Visit Family Medicine [address] [place] [phone] Rosemary Valentine MD [address] [place] [address] [place] [address] 02/01/2024 3:00 PM EDT Nurse Only Ancillary [address] [place] [address] [place], Nurse Annual Wellness [address] [place] [address] [place] [address] Health Maintenance Due Date Last Done Comments COVID-19 Vaccine (#1) 1945 Hepatitis B (1 of 3 - Risk 3-dose series) 2003 Diabetic Eye Exam 11/28/2022 11/28/2021, , 08/20/2020, Additional history exists DXA Scan 01/04/2023 01/05/2020, 01/04/2015 COLONOSCOPY-EVERY 5 YRS AGES 18-100 04/19/2023 04/19/2018, 04/19/2018, 09/29/2014, Additional history exists CKD PHOS USE SMARTSET 92923 07/03/20230 02/2023, 05/11/2021, 02/05/2020, Additional history exists GFR 07/22/2023 01/19/2023, 0 02/2023, 10/03/2021, Additional history exists HbA1c 07/22/2023 01/19/2023, 0 02/2023, 10/03/2021, Additional history exists Albumin/Creatinine Ratio 08/04/2023 023, 05/11/2021, 07/29/2019, Additional history exists CKD HGB USE SMARTSET 77262 01/20/202401/19, 01/19/2023, 07/03/2022, Additional history exists Depression [...] this encounter Medical Devices Implanted Type Area Rfid Systems Architect Device Identifier Shelf Expiration Date Model / Serial / Lot Lens Intraoc 19.5 - [id number] - [id number] Implanted:Qty: 1 on 03/17/2021 by Migel Dejesus MD at OR [facility] Left: Eye [employer]USCH [employer] LOMB 10/22/2025 [id number] / [id number] / [id number] Lens Intraoc 20.0 - [id number] - [id number] Implanted:Qty: 1 on 03/31/2021 by Migel Dejesus MD at OR [facility] Right: Eye BAUSCH [employer] LOMB 12/22/2025 [id number] / [id number] / [id number] documented as of this encounter Visit Diagnoses [...] patient or by statute hierarchy) Care Teams Commodities Broker Relationship Specialty Start Date End Date Rosemary Valentine MD [address] [place] [address] [place] [address] PCP - General Family Medicine 10/30/11 documented as of this encounter
--- OUTSIDE RECORDS SUMMARY | 2023-12-02 02:00 | External Medical Summary | Summary of Care ---
Author Name Unknown Organization [facility] Address [address] [place] [address] Phone [phone] Care Team Providers Care Body Work Auto Trimmer Name Role Phone Rosemary Valentine MD Primary Care Provide r Reason for Visit * Reason Onset Date Comments Medication Refill 06/11/2023 Encounter Details Date Type Department Care Team (Late st Contact Info) Description 06/11/2023 Refill Family Medicine [address] [phone] Rosemary Valentine MD [address] [place], [place] [address] [address] Nausea without vomiting Allergies Active Allergy Reactions Criticality Noted Date Comments Codeine Nausea/vomiting 08/15/2011 Propoxyphene N-Acetaminophen Nausea/vomiting Low 08/24/2008 Iodinated Contrast Media Hives 02/06/2023 Iodine Hives 01/08/2001 Latex 09/26/2012 Contact dermititis Nitrofurantoin Rash 09/07/2014 Metformin 04/12/2021 documented as of this encounter (statuses as of 06/12/2023) Medications Medication Sig Dispensed Refills Start Date [...] 11/24/2020 Active Additional Information Patient taking differently:2 [place] Each Nostril Daily(AM),Indications: stuffy nose, Reported on [...] gone 6 Tablet 0 05/03/2023 Active Tiotropium [place] Monohydrate 18 MCG Inhalation Capsule (Spiriva)Indicati ons:Moderate [...] for nausea. 30 Tablet 2 06/12/2023 Active Ondansetron HCl 4 MG Oral Tablet (Zofran)Indicatio ns:Nausea without vomiting take 1 tablet every 6 hours as needed for nausea. 30 Tablet 2 04/20/2023 3 Discontinue d(Refill) Hospital, Clinic, or Other Facility Administered Medication Ordered Dose Route Frequency Start Date End Date Status vitamin b-12 (Cyanocobalamin) inj 1,000 mcgIndications:Vitamin B12 deficiency 1000 mcg IM [id number] 02/06/2023 01/08/2024 Active documented as of this encounter (statuses as of 06/12/2023) Active Problems Problem Noted Date Diagnosed Date [...] as of this encounter (statuses as of 06/12/2023) Resolved Problems Problem Noted Date Diagnosed Date [...] Taxonomy. Impaired fasting glucose 06/23/200607/2011 LOC PRIM [id number] 04/16/200609/24 LOC PRIM OSTEOARTH-ANKLE 04/16/2006 Sprain of [...] as of this encounter (statuses as of 06/12/2023) Immunizations Name Administration Dates Next Due Pneumococcal [...] Telephone Encounter - Rosemary Valentine MD - 06/12/2023 2:49 PM EST Signed Prescriptions: Disp Refills Ondansetron HCl 4 MG Oral Tablet (Zofran) 30 Tab*2 Sig: take 1 tablet every 6 hours as needed for nausea. Authorizing Provider: ROSEMARY VALENTINE * Telephone Encounter - Sharon Barney RP - 06/12/2023 1:31 PM ESTPending Prescriptions: Disp Refills Ondansetron HCl 4 MG Oral Tablet (Zofran) 30 Tab*2 Sig: take 1 tablet every 6 hours as needed for nausea. * Telephone Encounter - Sharon Barney RPh - 06/12/2023 1:31 PM EST Unable to authorize medication refills for pended medication(s) at this time. Part of the protocol criteria used for refill authorization was not satisfied. Patient has an active diagnosis of heart failure. Please approve if appropriate. Thanks, Sharon Barney Clinical Pharmacist Centralized Clinical Pharmacy Services (CCPS) (Formerly Telepharmacy) [phone] 06/12/2023, 1:31 PM * Telephone Encounter - Hyacinth Dietrich [facility] - 06/11/2023 1:13 PM EST Did you pend patient's preferred pharmacy and medication before forwarding?yes [facility]acy[id number] [address] [facility] Pending Prescriptions: Disp Refills Ondansetron HCl 4 [...] appointment Last date the medication was ordered: 04/20/23 Is this request for a controlled substance?No [...] 07/09/2023 4:00 PM EST Nurse Only Ancillary [address] [place] [address] [place], Nurse [address] [place] [address] 10/16/2023 3:00 PM EDT Office Visit Cardiology [address] [place] [address] Herberth Denny PA-C [address] [place] [address] 12/03/2023 2:00 PM EDT Office Visit Family Medicine [address] [place] [phone] Rosemary Valentine MD [address] [place] [address] [place] [address] 02/01/2024 3:00 PM EDT Nurse Only Ancillary [address] [place] [address] Nurse Kateryna Abrazo [facility] [address] [place] [address] [place] [address] Health Maintenance Due Date Last Done Comments COVID-19 Vaccine (#1) 1945 Hepatitis B (1 of 3 - Risk 3-dose series) 2003 Diabetic Eye Exam 11/28/2022 11/28/2021, , 08/20/2020, Additional history exists DXA Scan 01/04/2023 01/05/2020, 01/04/2015 COLONOSCOPY-EVERY 5 YRS AGES 18-100 04/19/2023 04/19/2018, 04/19/2018, 09/29/2014, Additional history exists CKD PHOS USE SMARTSET 37729 07/03/20230 02/2023, 05/11/2021, 02/05/2020, Additional history exists GFR 07/22/2023 01/19/2023, 0 02/2023, 10/03/2021, Additional history exists HbA1c 07/22/2023 01/19/2023, 0 02/2023, 10/03/2021, Additional history exists Albumin/Creatinine Ratio 08/04/2023 023, 05/11/2021, 07/29/2019, Additional history exists CKD HGB USE SMARTSET 75545 01/20/202401/19, 01/19/2023, 07/03/2022, Additional history exists Depression [...] this encounter Medical Devices Implanted Type Area Tool Operator Device Identifier Shelf Expiration Date Model / Serial / Lot Lens Intraoc 19.5 - [id number] - [id number] Implanted:Qty: 1 on 03/17/2021 by Migel Dejesus MD at OR [facility] Left: Eye [employer] 10/22/2025 [id number] / [id number] / [id number] Lens Intraoc 20.0 - [id number] - [id number] Implanted:Qty: 1 on 03/31/2021 by Migel Dejesus MD at OR [facility] Right: Eye [employer]OMB 12/22/2025 [id number] / [id number] / [id number] documented as of this encounter Visit Diagnoses Diagnosis Nausea without vomiting documented in this encounter Advance Directives Healthcare Agents on File Name Relationship Healthcare Agent Relationshi p Communication Mimi Vieyra Adult Child Health Care Repr esentative (appointed verbally by patient or by statute hierarchy) Yanci Lucille Adult Child Health Care Repr esentative (appointed verbally by patient or by statute hierarchy) Care Teams Body Work Auto Trimmer Relationship Specialty Start Date End Date Rosemary Valentine MD [address] [place] [address] [place] [phone] PCP - General Family Medicine 10/30/11 documented as of this encounter
--- OUTSIDE RECORDS SUMMARY | 2023-12-02 02:00 | External Medical Summary | Summary of Care ---
Author Name Unknown Organization [facility] Address [address] [place] [address] Phone [phone] Care Team Providers Care Planing Machine Operator Name Role Phone Rosemary Valentine MD Primary Care Provide r Reason for Visit * Reason Comments Medication Administration B 12 inj Encounter Details Date Type Department Care Team (Late st Contact Info) Description 06/07/2023 4:00 PM EST Nurse Only Ancillary [address] [place] [address] [place], Nurse [address] [place] [address] Medication Administration (B 12 inj) Allergies Active [...] 11/24/2020 Active Additional Information Patient taking differently:2 [place] Each Nostril Daily(AM),Indications: stuffy nose, Reported on 05/03/2022 Cyanocobalamin 1000 MCG/ML Injection Solution (Cyanocobalamin) Inject as directed 1,000 mcg every 30 days . 1 mL 09/13/2021 Active OneTouch Verio w/Device KitIndications:Type 2 diabetes mellitus with stage 3a chronic kidney disease, without long-term current use of insulin ([facility]) Use up to 4 times a [...] use of insulin ([facility]) Use once daily to check glucose E11.9 100 Strip 08/21/2022 Active OneTouch UltraSoft LancetsIndications: Type 2 diabetes mellitus with stage 3a chronic kidney disease, without long-term current use of insulin ([facility]) Use once daily to check glucose E11.9 100 Each 5 08/21/2022 Active Rosuvastatin Calcium 10 MG Oral Tablet (Crestor)Indication s:Dyslipidemia, goal LDL below 100 Take 1 Tablet by mouth in the morning. 90 Tablet 3 09/22/2022 Active Albuterol Sulfate HFA 108 (90 Base) MCG/ACT Inhalation Aerosol SolutionIndications :Intermittent asthma with reliever use up to twice per week without complication,SOB (shortness of breath) Inhale 2 Puffs by mouth every 6 hours as needed for Shortness of Breath or Wheezing. 18 g 5 10/03/2022 Active Acetaminophen ER 650 MG Oral Tablet [...] for nausea. 30 Tablet 2 04/20/2023 Active Nirmatrelvir&Ritona vir 300/100 20 x 150 [...] gone 6 Tablet 0 05/03/2023 Active Tiotropium [place] Monohydrate 18 MCG Inhalation Capsule (Spiriva)Indication s:Moderate persistent asthma without complication Inhale 1 Capsule by mouth in the morning. For inhaler only, do not swallow.. 30 Capsule 12 05/14/2023 Active ALPRAZolam 0.5 MG Oral Tablet (xaNAX)Indications: Anxiety take 1 tablet in the morning and evening if needed for anxiety 60 Tablet 0 06/05/2023 Active Hospital, Clinic, or Other Facility Administered Medication Ordered Dose Route Frequency Start Date End Date Status vitamin b-12 (Cyanocobalamin) inj 1,000 mcgIndications:Vitamin B12 deficiency 1000 mcg IM [id number] 02/06/2023 01/08/2024 Active documented as of this [...] Taxonomy. Impaired fasting glucose 06/23/200607/2011 LOC PRIM [id number] 04/16/200609/24 LOC PRIM OSTEOARTH-ANKLE 04/16/2006 Sprain of [...] Nursing Notes * Thea Mccann LPN - 06/07/2023 3:42 PM EST Patient was identified by full name and date of . Violeta Calvert presented for injection. This was administered per orders. The patient tolerated this well and left the clinic in stable condition. Thea Mccann LPN documented in this encounter Plan of Treatment Upcoming Encounters Date Type Department Care Team (Late st Contact Info) Description 07/09/2023 4:00 PM EST Nurse Only Ancillary [address] [place] [address] Nurse Samantha [address] [place] [address] 10/16/2023 3:00 PM EDT Office Visit Cardiology [address] [place] [address] Herberth Denny PA-C [address] [place] [address] 12/03/2023 2:00 PM EDT Office Visit Family Medicine [address] [place] [phone] Rosemary Valentine MD [address] [place] [address] [place] [address] 02/01/2024 3:00 PM EDT Nurse Only Ancillary [address] [place] [address] Nurse Kateryna [address] [place] [address] Health Maintenance Due Date Last Done Comments COVID-19 Vaccine (#1) 1945 Hepatitis B (1 of 3 - Risk 3-dose series) 2003 Diabetic Eye Exam 11/28/2022 11/28/2021, , 08/20/2020, Additional history exists DXA Scan 01/04/2023 01/05/2020, 01/04/2015 COLONOSCOPY-EVERY 5 YRS AGES 18-100 04/19/2023 04/19/2018, 04/19/2018, 09/29/2014, Additional history exists CKD PHOS USE SMARTSET 66856 07/03/20230 02/2023, 05/11/2021, 02/05/2020, Additional history exists GFR 07/22/2023 01/19/2023, 0 02/2023, 10/03/2021, Additional history exists HbA1c 07/22/2023 01/19/2023, 0 02/2023, 10/03/2021, Additional history exists Albumin/Creatinine Ratio 08/04/2023 023, 05/11/2021, 07/29/2019, Additional history exists CKD HGB USE SMARTSET 98007 01/20/202401/19, 01/19/2023, 07/03/2022, Additional history exists Depression [...] this encounter Medical Devices Implanted Type Area Merchandise Flow Team Member Device Identifier Shelf Expiration Date Model / Serial / Lot Lens Intraoc 19.5 - [id number] - [id number] Implanted:Qty: 1 on 03/17/2021 by Migel Dejesus MD at OR [facility] Left: Eye [employer] 10/22/2025 [id number] / [id number] / [id number] Lens Intraoc 20.0 - [id number] - [id number] Implanted:Qty: 1 on 03/31/2021 by Migel Dejesus MD at OR [facility] Right: Eye [employer]OMB 12/22/2025 [id number] / [id number] / [id number] documented as of this encounter Administered Medications Active Administered Medications - up to 3 most recent administrations Medication Order MAR Action Action Date Dose Rate Site vitamin b-12 (Cyanocobalamin) inj 1,000 mcg 1,000 mcg, Intramuscular, [id number], First dose on Sun02/06/23 at 1345, Last dose on Sun12/11/23 at 1345, For 12 doses Given 06/07/2023 3:39 PM EST 1,000 mcg Deltoid Right Upper Given 04/13/2023 2:59 PM EDT 1,000 mcg De ltoid Left Upper Given 03/12/2023 5:19 PM EDT 1,000 mcg De ltoid Right Upper documented in this encounter Advance Directives Healthcare Agents on File Name Relationship Healthcare Agent Relationshi p Communication Mimi Vieyra Adult Child Health Care Repr esentative (appointed verbally by patient or by statute hierarchy) Yanci Adkins Adult Child Health Care Repr esentative (appointed verbally by patient or by statute hierarchy) Care Teams Planing Machine Operator Relationship Specialty Start Date End Date Rosemary Valentine MD [address] [place] [address] [place] [address] PCP - General Family Medicine 10/30/11 documented as of this encounter
--- OUTSIDE RECORDS SUMMARY | 2023-12-02 02:00 | External Medical Summary | Summary of Care ---
Author Name Unknown Organization [facility] Address [address] [place] [address] Phone [phone] Care Team Providers Care Psychiatric Attendant Name Role Phone Rosemary Valentine MD Primary Care Provide r Reason for Visit * Reason Onset Date Comments Medication Refill 07/04/2023 Encounter Details Date Type Department Care Team (Late st Contact Info) Description 07/04/2023 Refill Family Medicine [address] [phone] Rosemary Valentine MD [address] [place], [place] [address] [address] Anxiety Allergies Active Allergy Reactions Criticality Noted Date Comments Codeine Nausea/vomiting 08/15/2011 Propoxyphene N-Acetaminophen Nausea/vomiting Low 08/24/2008 Iodinated Contrast Media Hives 02/06/2023 Iodine Hives 01/08/2001 Latex 09/26/2012 Contact dermititis Nitrofurantoin Rash 09/07/2014 Metformin 04/12/2021 documented as of this encounter (statuses as of 07/05/2023) Medications Medication Sig Dispensed Refills Start Date [...] 11/24/2020 Active Additional Information Patient taking differently:2 [place] Each Nostril Daily(AM),Indications: stuffy nose, Reported on [...] gone 6 Tablet 0 05/03/2023 Active Tiotropium [place] Monohydrate 18 MCG Inhalation Capsule (Spiriva)Indicati ons:Moderate [...] 06/12/2023 Active ALPRAZolam 0.5 MG Oral Tablet (xaNAX)Indication s:Anxiety take 1 tablet in the morning and evening if needed for anxiety 60 Tablet 0 07/05/2023 Active ALPRAZolam 0.5 MG Oral Tablet (xaNAX)Indication s:Anxiety take 1 tablet in the morning and evening if needed for anxiety 60 Tablet 0 06/05/2023 Discontinue d(Refill) Hospital, Clinic, or Other Facility Administered Medication Ordered Dose Route Frequency Start Date End Date Status vitamin b-12 (Cyanocobalamin) inj 1,000 mcgIndications:Vitamin B12 deficiency 1000 mcg IM [id number] 02/06/2023 01/08/2024 Active documented as of this encounter (statuses as of 07/05/2023) Active Problems Problem Noted Date Diagnosed Date [...] as of this encounter (statuses as of 07/05/2023) Resolved Problems Problem Noted Date Diagnosed Date [...] Taxonomy. Impaired fasting glucose 06/23/200607/2011 LOC PRIM [id number] 04/16/200609/24 LOC PRIM OSTEOARTH-ANKLE 04/16/2006 Sprain of [...] as of this encounter (statuses as of 07/05/2023) Immunizations Name Administration Dates Next Due Pneumococcal [...] encounter Miscellaneous Notes * Telephone Encounter - Iza Agarwal MD - 07/05/2023 12:08 PM EST Signed Prescriptions: Disp Refills ALPRAZolam 0.5 MG Oral Tablet (xaNAX) 60 Tab*0 Sig: take 1 tablet in the morning and evening if needed for anxietyAuthorizing Provider: IZA AGARWAL----- * Telephone Encounter - Dayday Tomas [facility] - 07/05/2023 11:59 AM EST Pending Prescriptions: Disp Refills ALPRAZolam 0.5 MG Oral Tablet (xaNAX) 60 Tab*0 Sig: take 1 tablet in the morning and evening if needed for anxiety * Telephone Encounter - Dayday Tomas [facility] - 07/05/2023 11:58 AM EST I have reviewed the patients controlled substance dispensing history in the Prescription Drug Monitoring Program in compliance with the [facility] regulations before prescribing a controlled substance. PDMP checked on 07/05/2023. Pending Prescriptions: Disp Refills ALPRAZolam 0.5 MG Oral Tablet (xaNAX) 60 Tab*0 Sig: take 1 tablet in the morning and evening if needed for anxiety Last Visit: 04/13/2023 (in office), Visit date not found (telemedicine) Next Visit: 12/03/2023 Date medication was last filled: 06/05/23 Date medication is due for refill: 07/04/23 [facility]acy: [id number] [id number] [facility] Is this request for a controlled substance? Yes and Urine Drug Screen Not completed Toxicology results: No results found. However, due to the size of the patient record, not all encounters were searched.Please check Results Review for a complete set of results. Please approve if appropriate. Thanks, Dayday Tomas, FrankieD Clinical Pharmacist Centralized Clinical Pharmacy Services (CCPS) (formerly Telepharmacy) [phone] 07/05/2023, 11:59 AM * Telephone Encounter - Tracy Ashraf PHARM Tech - 07/04/2023 10:59 AM EST Did you pend patient's preferred pharmacy and medication before forwarding?yes Pharmacy: [id number] [address] [facility] Pending Prescriptions: Disp Refills ALPRAZolam 0.5 [...] appointment Last date the medication was ordered: Is this request for a controlled substance?Yes, What was the last refill date 06/05 w/ quantity 60 and dosage 0.5 mg and Urine Drug Screen Not completed Urine [...] 07/09/2023 4:00 PM EST Nurse Only Ancillary [address] [place] [address] [place], Nurse [address] [place] [address] 10/16/2023 3:00 PM EDT Office Visit Cardiology [address] [place] [address] Herberth Denny PA-C [address] [place] [address] 12/03/2023 2:00 PM EDT Office Visit Family Medicine [address] [place] [phone] Rosemary Valentine MD [address] [place] [address] [place] [address] 02/01/2024 3:00 PM EDT Nurse Only Ancillary [address] [place] [address] [place], Nurse Annual Wellness [address] [place] [address] [place] [address] Health Maintenance Due Date Last Done Comments COVID-19 Vaccine (#1) 1945 Hepatitis B (1 of 3 - Risk 3-dose series) 2003 Diabetic Eye Exam 11/28/2022 11/28/2021, , 08/20/2020, Additional history exists DXA Scan 01/04/2023 01/05/2020, 01/04/2015 COLONOSCOPY-EVERY 5 YRS AGES 18-100 04/19/2023 04/19/2018, 04/19/2018, 09/29/2014, Additional history exists CKD PHOS USE SMARTSET 90965 07/03/20230 02/2023, 05/11/2021, 02/05/2020, Additional history exists GFR 07/22/2023 01/19/2023, /0 02/2023, 10/03/2021, Additional history exists HbA1c 07/22/2023 01/19/2023, 01/0 02/2023, 10/03/2021, Additional history exists Albumin/Creatinine Ratio 08/04/20232 023, 05/11/2021, 07/29/2019, Additional history exists CKD HGB USE SMARTSET 60803 01/20/202401/19, 01/19/2023, 07/03/2022, Additional history exists Depression [...] this encounter Medical Devices Implanted Type Area Director Of Optimization Device Identifier Shelf Expiration Date Model / Serial / Lot Lens Intraoc 19.5 - [id number] - [id number] Implanted:Qty: 1 on 03/17/2021 by Migel Dejesus MD at OR [facility] Left: Eye [employer] 10/22/2025 [id number] / [id number] / [id number] Lens Intraoc 20.0 - [id number] - [id number] Implanted:Qty: 1 on 03/31/2021 by Migel Dejesus MD at OR [facility] Right: Eye [employer]OMB 12/22/2025 [id number] / [id number] / [id number] documented as of this encounter Visit Diagnoses Diagnosis Anxiety Anxiety state, unspecified documented in this encounter Advance Directives Healthcare Agents on File Name Relationship Healthcare Agent Relationshi p Communication Mimi Vieyra Adult Child Health Care Repr esentative (appointed verbally by patient or by statute hierarchy) Yanci Lucille Adult Child Health Care Repr esentative (appointed verbally by patient or by statute hierarchy) Care Teams Psychiatric Attendant Relationship Specialty Start Date End Date Rosemary Valentine MD [address] [place] [address] [place] [phone] PCP - General Family Medicine 10/30/11 documented as of this encounter
--- OUTSIDE RECORDS SUMMARY | 2023-12-02 02:00 | External Medical Summary | Summary of Care ---
Author Name Unknown Organization [facility] Address [address] [place] [address] Phone [phone] Care Team Providers Care Rehabilitation Teacher Name Role Phone Rosemary Valentine MD Primary Care Provide r Encounter Details Date Type Department Care Team (Late st Contact Info) Description 07/20/2023 4:20 PM EST Nurse Only Ancillary [address] [place] [address] [place], Nurse [address] [place] [address] Allergies Active Allergy Reactions Criticality Noted Date Comments Codeine Nausea/vomiting 08/15/2011 Propoxyphene N-Acetaminophen Nausea/vomiting Low 08/24/2008 Iodinated Contrast Media Hives 02/06/2023 Iodine Hives 01/08/2001 Latex 09/26/2012 Contact dermititis Nitrofurantoin Rash 09/07/2014 Metformin 04/12/2021 documented as of this encounter (statuses as of 07/20/2023) Medications Medication Sig Dispensed Refills Start Date [...] 11/24/2020 Active Additional Information Patient taking differently:2 [place] Each Nostril Daily(AM),Indications: stuffy nose, Reported on [...] disease, without long-term current use of insulin ([facility]) Use once daily to check glucose E11.9 100 Strip 08/21/2022 Active OneTouch UltraSoft LancetsIndications: Type 2 diabetes mellitus with stage 3a chronic kidney disease, without long-term current use of insulin ([facility]) Use once daily to check [...] gone 6 Tablet 0 05/03/2023 Active Tiotropium [place] Monohydrate 18 MCG Inhalation Capsule (Spiriva)Indication s:Moderate [...] 1,000 mcgIndications:Vitamin B12 deficiency 1000 mcg IM [id number] 02/06/2023 01/08/2024 Active documented as of this encounter (statuses as of 07/20/2023) Active Problems Problem Noted Date Diagnosed Date [...] as of this encounter (statuses as of 07/20/2023) Resolved Problems Problem Noted Date Diagnosed Date [...] Taxonomy. Impaired fasting glucose 06/23/200607/2011 LOC PRIM [id number] 04/16/200609/24 LOC PRIM OSTEOARTH-ANKLE 04/16/2006 Sprain of [...] as of this encounter (statuses as of 07/20/2023) Immunizations Name Administration Dates Next Due Pneumococcal [...] 08/17/2023 3:20 PM EST Nurse Only Ancillary [address] [place] [address] [place], Nurse [address] [place] [address] 09/18/2023 4:00 PM EDT Imaging Radiology, [address] [place] [address] 10/16/2023 3:00 PM EDT Office Visit Cardiology [address] [place] [address] Herberth Denny PA-C [address] [place] [address] 12/03/2023 2:00 PM EDT Office Visit Family Medicine [address] [place] [phone] Rosemary Valentine MD [address] [place] [address] [place] [address] 02/01/2024 3:00 PM EDT Nurse Only Ancillary [address] [place] [address] [place], Annual Wellness [address] [place] [address] [place] [address] Health Maintenance Due Date Last Done Comments COVID-19 Vaccine (#1) 1945 Hepatitis B (1 of 3 - Risk 3-dose series) 2003 Diabetic Eye Exam 11/28/2022 11/28/2021, , 08/20/2020, Additional history exists DXA Scan 01/04/2023 01/05/2020, 01/04/2015 COLONOSCOPY-EVERY 5 YRS AGES 18-100 04/19/2023 04/19/2018, 04/19/2018, 09/29/2014, Additional history exists CKD PHOS USE SMARTSET 14792 07/03/20230 02/2023, 05/11/2021, 02/05/2020, Additional history exists GFR 07/22/2023 01/19/2023, 0 02/2023, 10/03/2021, Additional history exists HbA1c 07/22/2023 01/19/2023, 02/2023, 10/03/2021, Additional history exists Albumin/Creatinine Ratio 08/04/2023 023, 05/11/2021, 07/29/2019, Additional history exists CKD HGB USE SMARTSET 01998 01/20/202401/19, 01/19/2023, 07/03/2022, Additional history exists Depression [...] this encounter Medical Devices Implanted Type Area Restrictive Preparation Operator Device Identifier Shelf Expiration Date Model / Serial / Lot Lens Intraoc 19.5 - [id number] - [id number] Implanted:Qty: 1 on 03/17/2021 by Migel Dejesus MD at OR [facility] Left: Eye [employer] 10/22/2025 [id number] / [id number] / [id number] Lens Intraoc 20.0 - [id number] - [id number] Implanted:Qty: 1 on 03/31/2021 by Migel Dejesus MD at [facility] Right: Eye [employer] 12/22/2025 [id number] / [id number] / [id number] documented as of this encounter Visit Diagnoses Diagnosis B12 deficiency- Primary Other B-complex deficiencies documented in this encounter Administered Medications Active Administered Medications - up to 3 most recent administrations Medication Order MAR Action Action Date Dose Rate Site vitamin b-12 (Cyanocobalamin) inj 1,000 mcg 1,000 mcg, Intramuscular, [id number], First dose on Sun02/06/23 at 1345, Last dose on Sun12/11/23 at 1345, For 12 doses Given 07/20/2023 3:43 PM EST 1,000 mcg Deltoid Left Upper Given 06/07/2023 3:39 PM EST 1,000 mcg De ltoid Right Upper Given 04/13/2023 2:59 PM EDT 1,000 mcg De ltoid Left Upper documented in this encounter Advance Directives Healthcare Agents on File Name Relationship Healthcare Agent Relationshi p Communication Mimi Jarrell Adult Child Health Care Repr esentative (appointed verbally by patient or by statute hierarchy) Yanci Lucille Adult Child Health Care Repr esentative (appointed verbally by patient or by statute hierarchy) Care Teams Rehabilitation Teacher Relationship Specialty Start Date End Date Rosemary Valentine MD [address] [place] [address] [place] [phone] PCP - General Family Medicine 10/30/11 documented as of this encounter
--- OUTSIDE RECORDS SUMMARY | 2023-12-02 02:00 | External Medical Summary | Summary of Care ---
Author Name Unknown Organization [facility] Address [address] [place] [address] Phone [phone] Care Team Providers Care Dial Equipment Engineer Name Role Phone Rosemary Valentine MD Primary Care Provide r Reason for Visit * Reason Onset Date Comments Medication Refill 06/04/2023 Encounter Details Date Type Department Care Team (Late st Contact Info) Description 06/04/2023 Refill Family Medicine [address] [phone] Rosemary Valentine MD [address] [place], [place] [address] [address] Anxiety Allergies Active Allergy Reactions Criticality Noted Date Comments Codeine Nausea/vomiting 08/15/2011 Propoxyphene N-Acetaminophen Nausea/vomiting Low 08/24/2008 Iodinated Contrast Media Hives 02/06/2023 Iodine Hives 01/08/2001 Latex 09/26/2012 Contact dermititis Nitrofurantoin Rash 09/07/2014 Metformin 04/12/2021 documented as of this encounter (statuses as of 06/05/2023) Medications Medication Sig Dispensed Refills Start Date [...] 11/24/2020 Active Additional Information Patient taking differently:2 [place] Each Nostril Daily(AM),Indications: stuffy nose, Reported on [...] gone 6 Tablet 0 05/03/2023 Active Tiotropium [place] Monohydrate 18 MCG Inhalation Capsule (Spiriva)Indicati ons:Moderate persistent asthma without complication Inhale 1 Capsule by mouth in the morning. For inhaler only, do not swallow.. 30 Capsule 12 05/14/2023 Active ALPRAZolam 0.5 MG Oral Tablet (xaNAX)Indication s:Anxiety take 1 tablet in the morning and evening if needed for anxiety 60 Tablet 0 06/05/2023 Active ALPRAZolam 0.5 MG Oral Tablet (xaNAX)Indication s:Anxiety take 1 tablet in the morning and evening if needed for anxiety 60 Tablet 0 05/04/2023 3 Discontinue d(Refill) Hospital, Clinic, or Other Facility Administered Medication Ordered Dose Route Frequency Start Date End Date Status vitamin b-12 (Cyanocobalamin) inj 1,000 mcgIndications:Vitamin B12 deficiency 1000 mcg IM [id number] 02/06/2023 01/08/2024 Active documented as of this encounter (statuses as of 06/05/2023) Active Problems Problem Noted Date Diagnosed Date [...] as of this encounter (statuses as of 06/05/2023) Resolved Problems Problem Noted Date Diagnosed Date [...] Taxonomy. Impaired fasting glucose 06/23/200607/2011 LOC PRIM [id number] 04/16/200609/24 LOC PRIM OSTEOARTH-ANKLE 04/16/2006 Sprain of [...] as of this encounter (statuses as of 06/05/2023) Immunizations Name Administration Dates Next Due Pneumococcal [...] encounter Miscellaneous Notes * Telephone Encounter - Gale Chapman MD - 06/05/2023 9:12 AM ESTSigned Prescriptions: Disp Refills ALPRAZolam 0.5 MG Oral Tablet (xaNAX) 60 Tab*0 Sig: take 1 tablet in the morning and evening if needed for anxiety Authorizing Provider: GALE CHAPMAN * Telephone Encounter - Jose Ramon Palacios [facility] - 06/05/2023 9:05 AM EST Pending Prescriptions: Disp Refills ALPRAZolam 0.5 MG Oral Tablet (xaNAX) 60 Tab*0 Sig: take 1 tablet in the morning and evening if needed for anxiety * Telephone Encounter - Jose Ramon Palacios [facility] - 06/05/2023 9:04 AM EST I have reviewed the patients controlled substance dispensing history in the Prescription Drug Monitoring Program in compliance with the [place] regulations before prescribing a controlled substance. PDMP checked on 06/05/2023. Pending Prescriptions: Disp Refills ALPRAZolam 0.5 MG Oral Tablet (xaNAX) 60 Tab*0 Sig: take 1 tablet in the morning and evening if needed for anxiety Last Visit: 04/13/2023 (in office), Visit date not found (telemedicine) Next Visit: 12/03/2023 Date medication was last filled: 05/04 Date medication is due for refill: 06/02 Pharmacy: [facility] [id number] Is this request for a controlled substance? Yes and Urine Drug Screen Not completed Toxicology results: No results found. However, due to the size of the patient record, not all encounters were searched.Please check Results Review for a complete set of results. Please approve if appropriate. Thanks, Jose Ramon Palacios, FrankieD Clinical Pharmacist [facility](formerly telepharmacy) [phone] 06/05/2023, 9:04 AM * Telephone Encounter - Luisito Gonzales special service officer - 06/04/2023 11:19 AM EST Did you pend patient's preferred pharmacy and medication before forwarding?yes Pharmacy: [facility] [address] [place] [address] Pending Prescriptions: Disp Refills ALPRAZolam 0.5 MG [...] appointment Last date the medication was ordered: 05/04/2023 Is this request for a controlled substance?Yes, What was the last refill date 05/04/2023 w/ quantity 60 and dosage 0.5 mg [...] 06/07/2023 4:00 PM EST Nurse Only Ancillary [address] [place] [address] [place], Nurse [address] [place] [address] 10/16/2023 3:00 PM EDT Office Visit Cardiology [address] [place] [address] Herberth Denny PA-C [address] [place] [address] 12/03/2023 2:00 PM EDT Office Visit Family Medicine [address] [place] [phone] Rosemary Valentine MD [address] [place] [address] [place] [address] 02/01/2024 3:00 PM EDT Nurse Only Ancillary [address] [place] [address] [place], Nurse Annual Wellness [address] [place] [address] [place] [address] Health Maintenance Due Date Last Done Comments COVID-19 Vaccine (#1) 1945 Hepatitis B (1 of 3 - Risk 3-dose series) 2003 Diabetic Eye Exam 11/28/2022 11/28/2021, , 08/20/2020, Additional history exists DXA Scan 01/04/2023 01/05/2020, 01/04/2015 COLONOSCOPY-EVERY 5 YRS AGES 18-100 04/19/2023 04/19/2018, 04/19/2018, 09/29/2014, Additional history exists CKD PHOS USE SMARTSET 69897 07/03/20230 02/2023, 05/11/2021, 02/05/2020, Additional history exists GFR 07/22/2023 01/19/2023, 0 02/2023, 10/03/2021, Additional history exists HbA1c 07/22/2023 01/19/2023, 0 02/2023, 10/03/2021, Additional history exists Albumin/Creatinine Ratio 08/04/20232 023, 05/11/2021, 07/29/2019, Additional history exists CKD HGB USE SMARTSET 74717 01/20/202401/19, 01/19/2023, 07/03/2022, Additional history exists Depression [...] this encounter Medical Devices Implanted Type Area Casting Technician Device Identifier Shelf Expiration Date Model / Serial / Lot Lens Intraoc 19.5 - [id number] - [id number] Implanted:Qty: 1 on 03/17/2021 by Migel Dejesus MD at OR [facility] Left: Eye [employer] 10/22/2025 [id number] / [id number] / [id number] Lens Intraoc 20.0 - [id number] - [id number] Implanted:Qty: 1 on 03/31/2021 by Migel Dejesus MD at OR [facility] Right: Eye [employer]OM[employer] 12/22/2025 [id number] / [id number] / [id number] documented as of this encounter Visit Diagnoses Diagnosis Anxiety Anxiety state, unspecified documented in this encounter Advance Directives Healthcare Agents on File Name Relationship Healthcare Agent Relationshi p Communication Mimi Vieyra Adult Child Health Care Repr esentative (appointed verbally by patient or by statute hierarchy) Yanci Lucille Adult Child Health Care Repr esentative (appointed verbally by patient or by statute hierarchy) Care Teams Dial Equipment Engineer Relationship Specialty Start Date End Date Rosemary Valentine MD [address] [place] [address] [place] [phone] PCP - General Family Medicine 10/30/11 documented as of this encounter
[2023-12-02 02:59] LABS: Hematocrit (blood only) 42.3 % (37.0-47.0); Hemoglobin 14.7 g/dl (12.0-16.0); Mean Corpuscular Hemoglobin 32.4 pg (25.0-34.0); Mean Corpuscular Hgb Conc 34.8 g/dL (32.0-36.0); Mean Corpuscular Volume 93.2 fL (80.0-100.0); Mean Platelet Volume 9.3 fL (9.4-12.4); Platelet Count 174 K/uL (130-400); RDW Coefficient of Variation 12.7 % (11.5-14.5); RDW Standard Deviation 43.5 fL (36.4-46.3); Red Blood Count 4.54 M/uL (4.20-5.40); White Blood Count 7.66 K/ul (4.8-10.8)
[2023-12-02 03:16] LABS: BUN Creatinine Ratio 26.5 (10-20); Basophils # (auto) 0.01 K/uL (0.00-0.20); Basophils % (auto) 0.1 %; Creatinine Clr Calc Pharmacy 33.4 ml/min; Eosinophils # (auto) 0.04 K/uL (0.00-0.50); Eosinophils % (auto) 0.5 %; Est GFR (African American) 44.1 ml/min; Immature Granulocytes # (auto) 0.02 K/uL (0.01-0.20); Immature Granulocytes % (auto) 0.3 %; Lymphocytes # (auto) 0.17 K/uL (1.20-3.40); Lymphocytes % (auto) 2.2 %; Monocytes # (auto) 0.06 K/uL (0.11-0.59); Monocytes % (auto) 0.8 %; Neutrophils # (auto) 7.36 K/uL (1.40-6.50); Neutrophils % (auto) 96.1 %; Potassium 3.4 mmol/L (3.5-5.1)
[2023-12-02 03:23] LABS: Troponin I High Sensitivity 20.1 pg/ml (0-14)
[2023-12-02 03:24] LABS: Appearance Urine Cloudy (Clear); Bacteria Urine Automated None Seen (None Seen); Bilirubin Urine 2+ (Negative); Blood Urine 1+ (Negative); Color Urine Dark Yellow; Glucose Urine UA Negative (Negative); Ketones Urine Trace (Negative); Leukocyte Esterase Urine 1+ (Negative); Nitrite Urine Positive (Negative); Protein Urine 1+ (Negative); Specific Gravity Urine 1.026 (1.000-1.030); Urobilinogen Urine Negative (Negative); WBC Urine Automated 0-5 /hpf (0-5); pH Urine 5.5 (4.5-7.5)
--- NOTE | 2023-12-02 03:26 | Emergency Department Note ---
Impression & Plan Acute UTI, Elevated LFTs, Atrial fibrillation with rapid ventricular response, Acute dehydration, Elevated troponin Admit to the [facility] ED Provider Note NAME: LINDA CHATMAN AGE: 78 SEX: Female INFORMANT: Patient and her daughters ED PROVIDER(S): Maggy Issa DO CHIEF COMPLAINT: Dysuria and weakness; chest heaviness and shortness of breath. PLAN: Disposition: Admit to the [facility] MEDICAL DECISION MAKING: This is an 78-year-old female patient who complained of dysuria earlier in the week and was treated with an antibiotic. She has become increasingly weak and had an episode of hallucinations. She complained of sore throat and difficulty swallowing and has had decreased urinary output. Family became concerned tonight because the patient began to complain of chest heaviness, shortness of breath and nausea. EMS was called and she was transported here. Patient presents in atrial fibrillation with rapid ventricular response. The family states that she has a history of intermittent episodes of A-fib but does not take anticoagulation. Laboratory studies show no leukocytosis or anemia. Patient has a normal lactic acid but has significant elevation to her procalcitonin at 7.29. Urinalysis appears to be significantly infected. Patient was prophylactically treated with IV cefepime. Patient does have a history of heart failure but appeared dramatically dehydrated on physical exam. She was bolused with IV normal saline solution for a total of 1500 cc of normal saline solution. Her IV fluid bolus requirement per sepsis criteria would be 1350 cc of crystalloid per ideal body weight. Patient had dramatic increase of her liver function test compared to previous lab findings. Total bilirubin was 3.6. AST was 1502, ALT was 2062, and alk phos was 235. The case was discussed with the [facility] and they will evaluate the patient care. Care/management discussed with: Patient and her daughters. Triage Nursing notes: reviewed and agree with them. Vital Signs: reviewed and remarkable for hypertension, tachycardia and fever Additional History obtained from: Daughters who are at the bedside Chronic Medical/Social Conditions affecting care: Heart failure Differential Diagnosis: Sepsis, STEMI, UTI, heart failure, NSTEMI, acute renal failure Diagnostics, independently interpreted by me: ECG: A-fib with RVR at a rate of [address] segment elevation or signs of ischemia. There is no ectopy. Cardiac Monitoring: A-fib with RVR at a rate of 134 Imaging studies: Portable chest x-ray: As per my independent interpretation-no acute pulmonary infiltrates or pleural effusions HPI: 78 year old Female arrives for evaluation of chest heaviness and shortness of breath. Patient had been complaining of dysuria earlier in the week was started on antibiotic for urinary tract infection. She was noted to have some significant weakness and hallucinations earlier in the week. Family was concerned because she had decreased urinary output. She was complaining of a sore throat and difficulty swallowing. Tonight, she complained of chest heaviness shortness of breath and nausea. EMS was called to their home and she was transported here. PAST MEDICAL HISTORY: See Below, PAST SURGICAL HISTORY: See Below, SOCIAL HISTORY: See Below, HOME MEDICATIONS: See list ALLERGIES: See list VITALS: See Below PHYSICAL EXAMINATION: HEENT: Head - normocephalic and atraumatic. Pupils are equal, round, and reactive to light. Extraocular eye muscles are intact, and sclera are anicteric. Nose -dry nasal mucosa without discharge. Mouth -extremely dry buccal mucosa. Oropharynx is nonerythematous and there is no tonsillar exudate or edema noted. Patient has caked dried mucus around her lips and the lips are cracked. Neck: Supple; no JVD, nuchal rigidity, cervical lymphadenopathy, or auscultated bruits. Heart: Tachycardic rate with an irregularly irregular rhythm. There is a normal S1 and S2 with no murmurs, clicks, or gallops appreciated. Lungs: Clear to auscultation bilaterally with no wheezes, rales, or rhonchi. Abdomen: Soft, completely nontender, nondistended, with good bowel sounds. There are no palpable pulsatile masses or hepatosplenomegaly. There is no guarding, rigidity, or rebound noted. Extremities: No evidence of cyanosis, clubbing, or edema. There are easily palpable peripheral pulses. Skin: warm and dry with poor turgor and tenting of the skin and no rashes. Emergency department treatment: property assessment monitor, IV normal saline bolus, IV cefepime Emergency department course: The patient was evaluated in room A-10. A complete history and physical was performed. An order was placed for continuous cardiac monitoring. The patient was in atrial fibrillation with rapid ventricular response at a rate of 134. . A septic protocol was performed. An IV lock was initiated and labs were drawn as above. A portable chest x-ray was performed. Patient was bolused with 500 cc of normal saline solution initially. Patient's heart rate did start to come down nicely. A twelve-lead EKG was obtained as described above. Urine specimen was obtained and was grossly infected. The patient was started on IV cefepime. Patient was bolused with an additional 1 L of normal saline solution and the case was discussed with the [facility] Hospitalist. Past Med/Surg History Problem List Elevated troponin (Acute) Acute dehydration (Acute) Atrial fibrillation with rapid ventricular response (Acute) Elevated LFTs (Acute) Acute UTI (Acute) Volume depletion Diastolic heart failure Elevated LFTs GAURAV on CPAP Dyspnea Bronchitis, acute Cough Asthma (Chronic) Weakness (Acute) Dehydration (Acute) Chest pain (Acute 08/17/14) Palpitations (Acute) Nausea (Acute) Diabetes mellitus, type II (Chronic) Hypertension (Chronic) Paroxysmal atrial fibrillation (Chronic) Hypothyroidism (Chronic) Spinal stenosis of lumbar region (Chronic) Dyslipidemia (Chronic) Statin intolerance (Chronic) Pulmonary nodules (Chronic) GERD (gastroesophageal reflux disease) (Chronic) Previous back surgery H/O shoulder surgery Status post appendectomy Status post tonsillectomy S/P TKR (total knee replacement) Medical History Asthma Diabetes mellitus, type II Dyslipidemia GERD (gastroesophageal reflux disease) Hypertension Hypothyroidism Paroxysmal atrial fibrillation Pulmonary nodules Spinal stenosis of lumbar region Statin intolerance Surgical History H/O shoulder surgery Hx of cholecystectomy Previous back surgery S/P TKR (total knee replacement) Status post appendectomy Status post tonsillectomy Family History Mother Coronary heart disease CHF (congestive heart failure) Father Stroke Daughter Hypertension Other Lung cancer Social History Smoking Status: Former smoker packs per day: 0.5; Second Hand Exposure: No; Do You Dip or Chew Tobacco: No; Hx Alcohol Use: No Hx Substance Use: No Preferred Language: Latvian Communication Ability: Effective Radio Intelligence Operator Required: No Beliefs That Will Affect Care: None marital status: / Current Living Situation: Family Current Living Situation Comment: Lives with daughter Feels Safe at Home: Yes Assistive Devices: Wheelchair Allergies Allergies Allergy/AdvReac Type Severity Reaction Status Date / Time Iodinated Contrast Media Allergy Intermediate HIVES Verified 12/02/23 01:55 iodine Allergy Intermediate Hives Verified 12/02/23 01:55 latex Allergy Intermediate LOCAL SKIN Verified 12/02/23 01:55 IRRITATION lidocaine Allergy Intermediate lidocaine Verified 12/02/23 01:55 patch-skin red,hot flushed feeling nitrofurantoin Allergy Mild RASH Verified 12/02/23 01:55 metformin Allergy Unknown ON Verified 12/02/23 01:55 [facility] codeine AdvReac Intermediate N&V Verified 12/02/23 01:55 propoxyphene AdvReac Intermediate NAUSEA AND Verified 12/02/23 01:55 VOMITING Otfnydq-MBV-[id number] Reductase AdvReac Intermediate LEG CRAMPS Verified 12/02/23 01:55 Inhibitor [Bxzelbh-Zkb-Tye Reductase Inhibitor] Home Meds Home Medications Medication Instructions Recorded Confirmed irbesartan 150 mg tablet 150 mg PO DAILY 02/12/19 12/02/23 metoprolol tartrate 50 mg tablet See Rx Instructions .Route .COMPLEX 02/12/19 12/02/23 albuterol sulfate 90 mcg/actuation 2 puff inhalation Q6H PRN 06/12/19 12/02/23 aerosol inhaler Shortness Of Breath Or Wheezing #1 g rosuvastatin 10 mg tablet 10 mg PO DAILY 06/12/19 12/02/23 polyethylene glycol 3350 17 gram 17 gm PO HS PRN Constipation 12/11/19 12/02/23 oral powder packet (Miralax) sertraline 100 mg tablet 100 - 200 mg PO DAILY 12/11/19 12/02/23 acetaminophen 650 mg 650 mg PO Q8H PRN pain 12/13/22 12/02/23 tablet,extended release cyanocobalamin (vitamin B-12) 1,000 mcg IM MONTHLY 12/13/22 12/02/23 1,000 mcg/mL injection kit dulaglutide 0.75 mg/0.5 mL 0.75 mg subcut WK 12/13/22 12/02/23 subcutaneous pen injector (Trulicity) ezetimibe 10 mg tablet 10 mg PO DAILY 12/13/22 12/02/23 fluticasone propionate 50 2 spray intranasal DAILY 12/13/22 12/02/23 mcg/actuation nasal spray,suspension hydrochlorothiazide 12.5 mg tablet 12.5 mg PO DAILY 12/13/22 12/02/23 levothyroxine 150 mcg tablet 150 mcg PO DAILYBB 12/13/22 12/02/23 loratadine 10 mg tablet 10 mg PO DAILY 12/13/22 12/02/23 Relaxium Sleep Suppliment 1 - 2 tab PO HS PRN Sleep 12/02/23 12/02/23 alprazolam 0.5 mg tablet 0.5 mg PO BID 12/02/23 12/02/23 aspirin 81 mg tablet,delayed 81 mg PO DAILY 12/02/23 12/02/23 release cephalexin 500 mg capsule 500 mg PO QID 12/02/23 12/02/23 docusate sodium 100 mg capsule 200 mg PO HS PRN Constipation 12/02/23 12/02/23 fluticasone fur. 200 mcg-umeclid 1 inh inhalation DAILY 12/02/23 12/02/23 62.5 mcg-vilant 25 mcg inhalat.powder (Trelegy Ellipta) iron,carbonyl 65 mg-vitamin C 125 1 tab PO DAILY 12/02/23 12/02/23 mg tablet,delayed release (Vitron-C) loteprednol etabonate 0.5 % eye 1 drp OPB BID 12/02/23 12/02/23 drops,suspension olopatadine 0.1 % eye drops 1 drp OPB BID 12/02/23 12/02/23 ondansetron HCl 4 mg tablet 4 mg PO Q6H PRN NAUSEA/VOMITING 12/02/23 12/02/23 pantoprazole 20 mg tablet,delayed 20 mg PO BID 12/02/23 12/02/23 release Results & Data (ED) Vital Signs Vital Signs - 24 hr 12/02/23 01:52 12/02/23 01:53 12/02/23 01:53 Temperature 37.6 C H Temperature Source Oral Pulse Rate 109 H 115 H Pulse Rate from SpO2 Sensor Pulse Rhythm Regular Pulse Strength Normal Respiratory Rate 16 Respiratory Effort / Characteristics Non-Labored Respiratory Depth Normal Respiratory Pattern Regular Blood Pressure 122/86 122/86 Blood Pressure Mean 98 90 Pulse Oximetry 94 Oxygen Delivery Method Room Air Sepsis Recent Fever Within 48 Hours No Sepsis New/Unexplained Change in Mental Status No Sepsis Action Taken by Nursing No Action Required 12/02/23 02:00 12/02/23 02:03 12/02/23 02:12 Temperature Temperature Source Pulse Rate 119 H 105 H Pulse Rate from SpO2 Sensor 121 H 125 H Pulse Rhythm Pulse Strength Respiratory Rate 30 H 16 Respiratory Effort / Characteristics Respiratory Depth Respiratory Pattern Blood Pressure Blood Pressure Mean Pulse Oximetry 97 95 61 L Oxygen Delivery Method Room Air Sepsis Recent Fever Within 48 Hours Sepsis New/Unexplained Change in Mental Status Sepsis Action Taken by Nursing 12/02/23 02:21 12/02/23 02:27 12/02/23 02:30 Temperature Temperature Source Pulse Rate 120 H 124 H Pulse Rate from SpO2 Sensor 114 H 127 H Pulse Rhythm Pulse Strength Respiratory Rate 22 25 H Respiratory Effort / Characteristics Respiratory Depth Respiratory Pattern Blood Pressure Blood Pressure Mean Pulse Oximetry 94 92 91 Oxygen Delivery Method Room Air Sepsis Recent Fever Within 48 Hours Sepsis New/Unexplained Change in Mental Status Sepsis Action Taken by Nursing 12/02/23 02:33 12/02/23 02:53 12/02/23 03:00 Temperature Temperature Source Pulse Rate 118 H 144 H Pulse Rate from SpO2 Sensor 115 H 144 H Pulse Rhythm Pulse Strength Respiratory Rate 22 21 Respiratory Effort / Characteristics Respiratory Depth Respiratory Pattern Blood Pressure 151/112 H Blood Pressure Mean 130 Pulse Oximetry 94 94 Oxygen Delivery Method Sepsis Recent Fever Within 48 Hours Sepsis New/Unexplained Change in Mental Status Sepsis Action Taken by Nursing 12/02/23 03:00 12/02/23 03:21 12/02/23 03:30 Temperature Temperature Source Pulse Rate 150 H 109 H Pulse Rate from SpO2 Sensor 151 H 95 H Pulse Rhythm Pulse Strength Respiratory Rate 21 23 Respiratory Effort / Characteristics Respiratory Depth Respiratory Pattern Blood Pressure 139/106 H Blood Pressure Mean 118 Pulse Oximetry 92 93 Oxygen Delivery Method Sepsis Recent Fever Within 48 Hours Sepsis New/Unexplained Change in Mental Status Sepsis Action Taken by Nursing 12/02/23 03:57 12/02/23 04:00 12/02/23 04:00 Temperature Temperature Source Pulse Rate 95 H 95 H Pulse Rate from SpO2 Sensor 89 88 Pulse Rhythm Pulse Strength Respiratory Rate 42 H 45 H Respiratory Effort / Characteristics Respiratory Depth Respiratory Pattern Blood Pressure 141/77 H Blood Pressure Mean 105 Pulse Oximetry 94 93 Oxygen Delivery Method Sepsis Recent Fever Within 48 Hours Sepsis New/Unexplained Change in Mental Status Sepsis Action Taken by Nursing 12/02/23 04:12 12/02/23 04:15 12/02/23 04:15 Temperature Temperature Source Pulse Rate 96 H 95 H Pulse Rate from SpO2 Sensor 95 H 95 H Pulse Rhythm Pulse Strength Respiratory Rate 27 H 33 H Respiratory Effort / Characteristics Respiratory Depth Respiratory Pattern Blood Pressure 126/78 Blood Pressure Mean 83 Pulse Oximetry 92 92 Oxygen Delivery Method Sepsis Recent Fever Within 48 Hours Sepsis New/Unexplained Change in Mental Status Sepsis Action Taken by Nursing 12/02/23 04:21 12/02/23 04:30 12/02/23 04:30 Temperature Temperature Source Pulse Rate 97 H 96 H Pulse Rate from SpO2 Sensor 96 H 91 H Pulse Rhythm Pulse Strength Respiratory Rate 23 32 H Respiratory Effort / Characteristics Respiratory Depth Respiratory Pattern Blood Pressure 137/72 Blood Pressure Mean 92 Pulse Oximetry 95 94 Oxygen Delivery Method Sepsis Recent Fever Within 48 Hours Sepsis New/Unexplained Change in Mental Status Sepsis Action Taken by Nursing 12/02/23 04:45 12/02/23 04:45 12/02/23 05:01 Temperature Temperature Source Pulse Rate 98 H Pulse Rate from SpO2 Sensor 98 H Pulse Rhythm Pulse Strength Respiratory Rate 44 H Respiratory Effort / Characteristics Respiratory Depth Respiratory Pattern Blood Pressure 152/79 H 130/87 Blood Pressure Mean 109 102 Pulse Oximetry 95 Oxygen Delivery Method Sepsis Recent Fever Within 48 Hours Sepsis New/Unexplained Change in Mental Status Sepsis Action Taken by Nursing 12/02/23 05:03 12/02/23 05:12 12/02/23 05:24 Temperature Temperature Source Pulse Rate 91 H 91 H 92 H Pulse Rate from SpO2 Sensor 91 H 91 H 92 H Pulse Rhythm Pulse Strength Respiratory Rate 32 H 40 H 27 H Respiratory Effort / Characteristics Respiratory Depth Respiratory Pattern Blood Pressure Blood Pressure Mean Pulse Oximetry 93 90 92 Oxygen Delivery Method Sepsis Recent Fever Within 48 Hours Sepsis New/Unexplained Change in Mental Status Sepsis Action Taken by Nursing 12/02/23 05:45 12/02/23 05:48 12/02/23 06:06 Temperature Temperature Source Pulse Rate 98 H 101 H 101 H Pulse Rate from SpO2 Sensor 99 H Pulse Rhythm Pulse Strength Respiratory Rate 27 H 21 Respiratory Effort / Characteristics Respiratory Depth Respiratory Pattern Blood Pressure Blood Pressure Mean Pulse Oximetry 91 Oxygen Delivery Method Sepsis Recent Fever Within 48 Hours Sepsis New/Unexplained Change in Mental Status Sepsis Action Taken by Nursing Laboratory Data 12/02/23 02:41 12/02/23 02:41 Lab Results 12/02/23 12/02/23 12/02/23 Range/Units 02:41 03:00 04:35 WBC 7.66 (4.8-10.8) K/ul RBC 4.54 (4.20-5.40) M/uL Hgb 14.7 (12.0-16.0) g/dl Hct 42.3 (37.0-47.0) % MCV 93.2 (80.0-100.0) fL MCH 32.4 (25.0-34.0) pg MCHC 34.8 (32.0-36.0) g/dL RDW Std Deviation 43.5 (36.4-46.3) fL RDW Coeff of Anne 12.7 (11.5-14.5) % Plt Count 174 (130-400) K/uL MPV 9.3 L (9.4-12.4) fL Immature Gran % (Auto) 0.3 % Neut % (Auto) 96.1 % Lymph % (Auto) 2.2 % Runnels % (Auto) 0.8 % Eos % (Auto) 0.5 % Baso % (Auto) 0.1 % Neut # (Auto) 7.36 H (1.40-6.50) K/uL Lymph # (Auto) 0.17 L (1.20-3.40) K/uL Runnels # (Auto) 0.06 L (0.11-0.59) K/uL Eos # (Auto) 0.04 (0.00-0.50) K/uL Baso # (Auto) 0.01 (0.00-0.20) K/uL Immature Gran # (Auto) 0.02 (0.01-0.20) K/uL Sodium 136 (136-145) mmol/L Potassium 3.4 L (3.5-5.1) mmol/L Chloride 101 (98-107) mmol/L Carbon Dioxide 25 (21-32) mmol/L Anion Gap 10 (3-11) BUN 35 H (6-23) mg/dl Creatinine 1.32 H (0.6-1.2) mg/dl Est Cr Clr Drug Dosing 33.4 ml/min Est GFR ( Amer) 44.1 ml/min Est GFR (Non-Af Amer) 38.0 ml/min BUN/Creatinine Ratio 26.5 H (10-20) Glucose 122 H (70-99(Fasting)) mg/dl Lactate 1.5 (0.4-2.0) mmol/L Calcium 8.0 L (8.6-10.3) mg/dl Magnesium 1.9 (1.7-2.4) mg/dl Total Bilirubin 3.6 H (0.2-1.0) mg/dl Direct Bilirubin 2.4 H (0-0.2) mg/dl AST 1502 H (13-39) U/L ALT 2062 H (7-52) U/L Alkaline Phosphatase 235 H (34-104) U/L Troponin I High Sens 20.1 H 22.3 H (0-14) pg/ml Total Protein 6.8 (6.0-8.3) gm/dl Albumin 3.9 (3.4-5.0) gm/dl Procalcitonin 7.29 H (0-0.5) ng/ml Urine Color Dark Yellow Urine Appearance Cloudy A (Clear) Urine pH 5.5 (4.5-7.5) Ur Specific [place] 1.026 (1.000-1.030) Urine Protein 1+ H (Negative) Urine Glucose (UA) Negative (Negative) Urine Ketones Trace H (Negative) Urine Blood 1+ H (Negative) Urine Nitrite Positive A (Negative) Urine Bilirubin 2+ H (Negative) Urine Urobilinogen Negative (Negative) Ur Leukocyte Esterase 1+ H (Negative) Urine WBC (Auto) 0-5 (0-5) /hpf Urine RBC (Auto) 11-20 H (0-2) /hpf U Hyaline Cast (Auto) 3-5 H (0-2) /lpf U Epithel Cells (Auto) 11-20 H (0-2) /hpf Urine Bacteria (Auto) None Seen (None Seen) Granular Casts Present A (None Prsent) /lpf Administered Medications Alprazolam (Alprazolam 0.5 Mg Tablet) 0.5 mg PO BID KATHRYN Stop: 01/01/24 08:59 Last Admin: 12/02/23 10:01 Dose: 0.5 mg Documented By: RODRIGUE Aspirin (Aspirin 81 Mg Ectab) 81 mg PO DAILY [facility] Stop: 01/01/24 08:59 Last Admin: 12/02/23 10:01 Dose: 81 mg Documented By: RODRIGUE Calcium/Vitamin D (Calcium 600mg + Vit D 400 Iu Tab) 1 tab PO BID [facility] Stop: 01/01/24 08:59 Last Admin: 12/02/23 10:01 Dose: 1 tab Documented By: RODRIGUE Ezetimibe (Ezetimibe 10 Mg Tab) 10 mg PO DAILY [facility] Stop: 01/01/24 08:59 Last Admin: 12/02/23 10:02 Dose: 10 mg Documented By: RODRIGUE Fluticasone Furoate (Fluticasone Furoate 200mcg 14 Puffs/Inhaler) 1 puffs INH DAILY [facility] Stop: 01/01/24 08:59 Last Admin: 12/02/23 10:05 Dose: Not Given Documented By: RODRIGUE Fluticasone Propionate (Fluticasone Propionate Na Spr 16 Gm Btl) 2 sprays NA DAILY [facility] Stop: 01/01/24 08:59 Last Admin: 12/02/23 10:03 Dose: Not Given Documented By: RODRIGUE Sodium Chloride (Nss) 1,000 mls @ 100 mls/hr IV .Q10H [facility] Stop: 01/01/24 07:39 Last Admin: 12/02/23 10:00 Dose: 100 mls/hr Documented By: RODRIGUE Meropenem 500 mg/ Syringe 10 mls @ 2 mls/min IV BID [facility]; Protocol Stop: 12/12/23 08:59 Last Admin: 12/02/23 12:15 Dose: 2 mls/min Documented By: MERCEDES Heparin Sodium/Dextrose (Heparin Sodium/Dextrose) 25,000 units in 500 mls @ 15 mls/hr IV .Q24H [facility]; Protocol Stop: 01/01/24 07:39 Last Admin: 12/02/23 09:02 Dose: 750 units/hr, 15 mls/hr Documented By: RODRIGUE Co-signed By: SANJAY Insulin Aspart (Insulin Aspart Per Unit Charge) 0 units SC ACHS [facility] Stop: 01/01/24 11:29 Last Admin: 12/02/23 12:03 Dose: Not Given Documented By: MERCEDES Co-signed By: DEANDRE Levothyroxine Sodium (Levothyroxine Sodium 150 Mcg Tablet) 150 mcg PO DAILYBB [facility] Stop: 01/01/24 07:59 Last Admin: 12/02/23 10:01 Dose: 150 mcg Documented By: RODRIGUE Loratadine (Loratadine 10 Mg Tab) 10 mg PO DAILY [facility] Stop: 01/01/24 08:59 Last Admin: 12/02/23 10:03 Dose: 10 mg Documented By: RODRIGUE Miscellaneous (Loteprednol Etabonate 0.5 %: Order Awaiting Action) 1 each N/A QS [facility] Stop: 01/01/24 15:59 Last Admin: 12/02/23 15:51 Dose: Not Given Documented By: MERCEDES Miscellaneous (Olopatadine 0.1 % Drops: Order Awaiting Action) 1 each N/A QS [facility] Stop: 01/01/24 15:59 Last Admin: 12/02/23 15:52 Dose: Not Given Documented By: MERCEDES Pantoprazole Sodium (Pantoprazole 40 Mg Tab) 40 mg PO BID [facility] Stop: 01/01/24 08:59 Last Admin: 12/02/23 10:04 Dose: 40 mg Documented By: RODRIGUE Sertraline HCl (Sertraline Hcl 100 Mg Tablet) 100 mg PO DAILY [facility] Stop: 01/01/24 08:59 Last Admin: 12/02/23 10:04 Dose: 100 mg Documented By: RODRIGUE Umeclidinium/Vilanterol (Umeclidinium/Vilanterol 62.5/25mcg 7 Puffs/Inhaler) 1 puffs INH DAILY [facility] Stop: 01/01/24 08:59 Last Admin: 12/02/23 10:04 Dose: 1 puffs Documented By: RODRIGUE Discontinued Medications Heparin Sodium/Dextrose (Heparin Iv Adult Wt-Based Low-Dose *No* Initial Bolus Protocol) 1 each IV ONE STA; Protocol Stop: 12/02/23 07:41 Last Admin: 12/02/23 09:58 Dose: Not Given Documented By: RODRIGUE Sodium Chloride (Nss) 500 mls @ 999 mls/hr IV .Q31M ONE Stop: 12/02/23 03:52 Last Infusion: 12/02/23 05:12 Dose: Infused Documented By: Admin: 12/02/23 04:27 Dose: 999 mls/hr Documented By: CATALINA Cefepime HCl (Maxipime) 2,000 mg in 20 mls @ 5 mls/min IV NOW STA; Protocol Stop: 12/02/23 03:33 Last Admin: 12/02/23 04:26 Dose: 5 mls/min Documented By: KG Sodium Chloride (Nss) 500 mls @ 999 mls/hr IV .Q31M ONE Stop: 12/02/23 04:06 Last Infusion: 12/02/23 05:12 Dose: Infused Documented By: Admin: 12/02/23 04:27 Dose: 999 mls/hr Documented By: CATALINA Calcium Gluconate () 1,000 mg in 60 mls @ 240 mls/hr IV NOW STA Stop: 12/02/23 08:11 Last Infusion: 12/02/23 11:41 Dose: Infused Documented By: Admin: 12/02/23 11:22 Dose: 240 mls/hr Documented By: MERCEDES Vancomycin HCl 2,000 mg/ (Sodium Chloride) 540 mls @ 200 mls/hr IV NOW STA Stop: 12/02/23 10:56 Last Infusion: 12/02/23 12:00 Dose: Infused Documented By: Admin: 12/02/23 09:13 Dose: 200 mls/hr Documented By: RODRIGUE Acetylcysteine 13,050 mg/ (Dextrose) 265.25 mls @ 265 mls/hr IV 1200 ONE; Protocol Stop: 12/02/23 13:00 Last Infusion: 12/02/23 13:34 Dose: Infused Documented By: Admin: 12/02/23 12:19 Dose: 265 mls/hr Documented By: MERCEDES Acetylcysteine 4,400 mg/ (Dextrose) 522 mls @ 130.5 mls/hr IV 1301 KATHRYN; Protocol Stop: 12/02/23 17:00 Last Admin: 12/02/23 13:32 Dose: 130.5 mls/hr Documented By: MERCEDES Metoprolol Tartrate (Metoprolol Tartrate 50 Mg Tab) 75 mg PO QAM [facility] Stop: 01/01/24 08:59 Last Admin: 12/02/23 10:03 Dose: 75 mg Documented By: RODRIGUE Potassium Chloride (Potassium Chloride Crtab 20 Meq Tabcr) 40 meq PO NOW STA Stop: 12/02/23 08:00 Last Admin: 12/02/23 10:01 Dose: 40 meq Documented By: RODRIGUE Imaging Data Radiologist's Impression: Chest X-Ray 12/02/23 02:21 SINGLE VIEW CHEST CLINICAL HISTORY: Sepsis. FINDINGS: 2 AP, portable, upright chest radiographs are compared to study dated 12/13/2022 and correlated with chest CT dated 04/30/2017. The examination is degraded by portable technique and patient rotation. The cardiac silhouette is enlarged noting atherosclerotic calcification of the thoracic aorta. The pulmonary vasculature is noncongested. Chronic interstitial thickening is similar to previous. There is bibasilar scarring/atelectasis. No airspace consolidation or large pleural effusion is identified. No pneumothorax is seen. The skeletal structures are osteopenic. The bony thorax is grossly intact. Cholecystectomy clips are noted in the right upper quadrant. IMPRESSION: No acute cardiopulmonary abnormality is identified. ACT 112: Negative or not required by law. Electronically signed by: Slick Bragg M.D. 12/02/2023 8:26 AM Abdomen/Pelvis CT 12/02/23 06:05 CT SCAN OF THE ABDOMEN AND PELVIS WITHOUT IV CONTRAST CLINICAL HISTORY: Elevated hepatic transaminases COMPARISON STUDY: Abdominal CT dated 12/13/2022. TECHNIQUE: CT scan of the abdomen and pelvis is performed from the lung bases to the proximal femora. Images are reviewed in the axial, sagittal, and coronal planes. IV contrast was not administered for this examination. Note that the examination was performed in suboptimal fashion without oral and IV contrast. A dose lowering technique was utilized adhering to the principles of ALARA. CT DOSE: 1265.29 mGy.cm FINDINGS: Lung bases: The heart is normal in size and without pericardial effusion. The coronary arteries are densely calcified. A small hiatal hernia is noted. A 9 mm left basilar pulmonary nodule on image #10 is unchanged, as are numerous additional 2-3 mm basilar nodules. There is bibasilar scarring/atelectasis. No airspace consolidation or pleural effusion is identified. Liver: The unenhanced liver is normal in size, contour, and attenuation. There is no intrahepatic biliary ductal dilatation. Gallbladder: Surgically absent noting clips in the gallbladder fossa. Spleen: Normal in size and attenuation. Pancreas: The unenhanced pancreas is moderately atrophic and grossly unremarkable. Adrenal glands: Unremarkable. Kidneys: The unenhanced kidneys demonstrate mild cortical atrophy and are without hydronephrosis. There are no renal calculi identified. A 1.5 cm cyst is noted in the left. Abdominal vasculature: There is advanced atherosclerotic calcification and mild ectasia of the abdominal aorta. Bowel: There is no bowel obstruction. Mild fecal retention is seen throughout the colon. The appendix is not identified and reported surgically absent. Peritoneum: There is no intraperitoneal free air or abdominal ascites. There is a small fat-containing umbilical hernia. Lymphadenopathy: None. Pelvic viscera: The bladder, uterus, and adnexa are normal as visualized. Skeletal structures: The skeletal structures are osteopenic. Postsurgical and spondylotic change is noted in the lumbar spine. No lytic or blastic lesions are seen. IMPRESSION: 1. No acute infectious or inflammatory findings are identified in the abdomen or pelvis. 2. The liver is normal in size and attenuation. 3. Bibasilar pulmonary nodules are pathologically indeterminate and unchanged from prior studies. 4. Additional findings as above. ACT 112: Negative or not required by law. Electronically signed by: Slick Bragg M.D. 12/02/2023 9:13 AM Discharge Plan Visit Data Chief Complaint: Cardiac Assessment Stated Complaint: UTI, Chest Heaviness, Weakness ED Provider: Maggy Issa Discharge Problem: Acute UTI, Elevated LFTs, Atrial fibrillation with rapid ventricular response, Acute dehydration, Elevated troponin Patient Disposition: Admitted As Inpatient Discharge Instructions Interventions: ED Discharge Assessment Last Done: 12/02/23 07:40
[2023-12-02 03:34] LABS: Albumin Level 3.9 gm/dl (3.4-5.0); Bilirubin Direct 2.4 mg/dl (0-0.2); Bilirubin,Total 3.6 mg/dl (0.2-1.0); Magnesium 1.9 mg/dl (1.7-2.4); Total Protein 6.8 gm/dl (6.0-8.3)
[2023-12-02 03:35] LABS: Granular Casts Urine Present /lpf (None Prsent)
[2023-12-02] MEDS: CEFEPIME 2,000 MG/20 ML VIAL IV STA (04:26)
[2023-12-02] MEDS: SODIUM CHLORIDE 0.9% 500 ML IV ONE ×2 (04:27)
--- NOTE | 2023-12-02 07:27 | Electrocardiogram Report ---
Test Reason : Blood Pressure : / mmHG Vent. Rate : 125 BPM Atrial Rate : 000 BPM P-R Int : 000 ms QRS Dur : 086 ms QT Int : 336 ms P-R-T Axes : 000 -20 057 degrees QTc Int : 484 ms Atrial fibrillation with rapid ventricular response Abnormal ECG When compared with ECG of 15-FEB-2021 02:01, Atrial fibrillation has replaced Sinus rhythm Vent. rate has increased BY 56 BPM Nonspecific T wave abnormality no longer evident in Lateral leads Confirmed by Dariusz Lepe ([id number]) on 12/02/2023 7:27:08 AM Referred By: REFERRED SELF Confirmed By:Jayme Lepe
--- NOTE | 2023-12-02 07:29 | History & Physical Report ---
Date of Service December 02, 2023 Assessment & Plan (1) Elevated LFTs: Plan: 78-year-old female with past medical history significant for Type 2 diabetes, hypothyroidism, hyperlipidemia, moderate persistent asthma, multiple pulmonary nodules, paroxysmal atrial fibrillation, chronic diastolic CHF, hypertension, asymptomatic bilateral carotid artery stenosis, vitamin B12 deficiency, GERD, obesity, slow transit constipation, CKD stage III, osteoarthritis, chronic chest pains, statin intolerance, lumbar spinal stenosis, generalized anxiety, depression, history of COVID, physical deconditioning, who lives at home with her daughter was brought in because of weakness and shortness of breath and some chest heaviness.Since last Sunday patient had some burning micturition. And last Sunday she was started on Keflex. Last Sunday patient was confused and hallucinating. As per daughter the confusion slowly improved. But still has some mild burning micturition. But she was getting progressively weak. Poor appetite. Before she is to ambulate fine but now she needs assistance. And today she complained of some chest tightness and shortness of breath and was brought into the hospital. In the ER initially she was in rapid A-fib. Seemed dry. In the ER received fluid bolus. And tachycardia improved. She was also given empiric cefepime. Urinalysis came back positive. But bilirubin is elevated and AST ALT are highly elevated. Patient takes Tylenol 2000 to 3000 g daily for headaches. Last Tylenol was last Sunday. She did not move bowels for last few days. Her urine is very dark and has low urine output. Currently patient is alert and oriented x 3. Has some headache. No blurred visions. No runny nose or sore throat. Currently no cough. Currently chest pain improved. Currently no shortness of breath. Currently no nausea. No abdominal pain. Hemodynamics are okay currently. Daughters are in the room who helped with h and p. Elevated LFTS will follow tylenol level and ct abd/pelvis acute hepatitis panel ordered GI notified follow repeat labs close monitor Rapid a fib hx of lone afib seems during infection and not on anticoagulation came with rapid a fib today. currently improved placed on iv heparin continue home metoprolol will follow echo and ce cardiology consulted close monitor. UTI possible sepsis elevated procalcitonin, lactic acid ok placed empirically on meropenem and vanco until cultures available on iv fluids hx of chronic diastolic chf not on diuretics getting fluids monitor for volume overload. HTN holding irbesartan and hctz metoprolol with holding parameters Norman on ckd stage 3 baseline cr 1.0 c 1.3 today getting fluids holding irbesartan and hctz will follow labs Hyperlipidemia on zetia holding statin for elevated lft GAURAV non compliant with cpap Hx of moderate persistent asthma continue home inhalers anxiety/depression on alprazolam and zoloft Diabetes ISS will monitor. Hypothyroidism on synthypid will follow tsh hypokalemia will replace hypocalcemia ca 8.0 will start on supplements check vitamin d levels. DVT px on iv heparin Disposition Tele Full code History of Present Illness Chief Complaint: Weakness, shortness of breath and chest heaviness Primary Care Provider: Rosemary Valentine MD 78-year-old female with past medical history significant for Type 2 diabetes, hypothyroidism, hyperlipidemia, moderate persistent asthma, multiple pulmonary nodules, paroxysmal atrial fibrillation, chronic diastolic CHF, hypertension, asymptomatic bilateral carotid artery stenosis, vitamin B12 deficiency, GERD, obesity, slow transit constipation, CKD stage III, osteoarthritis, chronic chest pains, statin intolerance, lumbar spinal stenosis, generalized anxiety, depression, history of COVID, physical deconditioning, who lives at home with her daughter was brought in because of weakness and shortness of breath and some chest heaviness.Since last Sunday patient had some burning micturition. And last Sunday she was started on Keflex. Last Sunday patient was confused and hallucinating. As per daughter the confusion slowly improved. But still has some mild burning micturition. But she was getting progressively weak. Poor appetite. Before she is to ambulate fine but now she needs assistance. And today she complained of some chest tightness and shortness of breath and was brought into the hospital. In the ER initially she was in rapid A-fib. Seemed dry. In the ER received fluid bolus. And tachycardia improved. She was also given empiric cefepime. Urinalysis came back positive. But bilirubin is elevated and AST ALT are highly elevated. Patient takes Tylenol 2000 to 3000 g daily for headaches. Last Tylenol was last Sunday. She did not move bowels for last few days. Her urine is very dark and has low urine output. Currently patient is alert and oriented x 3. Has some headache. No blurred visions. No runny nose or sore throat. Currently no cough. Currently chest pain improved. Currently no shortness of breath. Currently no nausea. No abdominal pain. Hemodynamics are okay currently. Daughters are in the room who helped with h and p. past medical history. As mentioned above. past surgical history. colonoscopy, EGD, dilatation curettage, laparoscopic cholecystectomy, decompression of some spinal cord /laminectomy, appendectomy, removal of ovary right side, tonsillectomy and adenoidectomy, bilateral cataracts, revision of left knee joint replacement. Social history. Quit smoking in 1971 smoked half pack a day for 13 years. No alcohol use. No drug use. Family history. Sister had colon cancer. Sister has hypertension. Mother had CHF and hypertension. Father had hypertension and stroke. Brother had lung cancer. Brother had heart disorder. Allergies Allergy/AdvReac Type Severity Reaction Status Date / Time Iodinated Contrast Media Allergy Intermediate HIVES Verified 12/02/23 01:55 iodine Allergy Intermediate Hives Verified 12/02/23 01:55 latex Allergy Intermediate LOCAL SKIN Verified 12/02/23 01:55 IRRITATION lidocaine Allergy Intermediate lidocaine Verified 12/02/23 01:55 patch-skin red,hot flushed feeling nitrofurantoin Allergy Mild RASH Verified 12/02/23 01:55 metformin Allergy Unknown ON Verified 12/02/23 01:55 [employer] MED LIST codeine AdvReac Intermediate N&V Verified 12/02/23 01:55 propoxyphene AdvReac Intermediate NAUSEA AND Verified 12/02/23 01:55 VOMITING Udon[employer]d-[employer]-ElP Reductase AdvReac Intermediate LEG CRAMPS Verified 12/02/23 01:55 Inhibitor [Npogyiv-Xxe-Nfj Reductase Inhibitor] Home Medications Medication Instructions Recorded Confirmed Type irbesartan 150 mg tablet 150 mg PO DAILY 02/12/19 12/02/23 History metoprolol tartrate 50 mg tablet See Rx Instructions .Route .COMPLEX 02/12/19 12/02/23 History albuterol sulfate 90 mcg/actuation 2 puff inhalation Q6H PRN 06/12/19 12/02/23 History aerosol inhaler Shortness Of Breath Or Wheezing #1 g rosuvastatin 10 mg tablet 10 mg PO DAILY 06/12/19 12/02/23 History polyethylene glycol 3350 17 gram 17 gm PO HS PRN Constipation 12/11/19 12/02/23 History oral powder packet (Miralax) sertraline 100 mg tablet 100 - 200 mg PO DAILY 12/11/19 12/02/23 History acetaminophen 650 mg 650 mg PO Q8H PRN pain 12/13/22 12/02/23 History tablet,extended release cyanocobalamin (vitamin B-12) 1,000 mcg IM MONTHLY 12/13/22 12/02/23 History 1,000 mcg/mL injection kit dulaglutide 0.75 mg/0.5 mL 0.75 mg subcut WK 12/13/22 12/02/23 History subcutaneous pen injector (Trulicity) ezetimibe 10 mg tablet 10 mg PO DAILY 12/13/22 12/02/23 History fluticasone propionate 50 2 spray intranasal DAILY 12/13/22 12/02/23 History mcg/actuation nasal spray,suspension hydrochlorothiazide 12.5 mg tablet 12.5 mg PO DAILY 12/13/22 12/02/23 History levothyroxine 150 mcg tablet 150 mcg PO DAILYBB 12/13/22 12/02/23 History loratadine 10 mg tablet 10 mg PO DAILY 12/13/22 12/02/23 History Relaxium Sleep Suppliment 1 - 2 tab PO HS PRN Sleep 12/02/23 12/02/23 History alprazolam 0.5 mg tablet 0.5 mg PO BID 12/02/23 12/02/23 History aspirin 81 mg tablet,delayed 81 mg PO DAILY 12/02/23 12/02/23 History release cephalexin 500 mg capsule 500 mg PO QID 12/02/23 12/02/23 History docusate sodium 100 mg capsule 200 mg PO HS PRN Constipation 12/02/23 12/02/23 History fluticasone fur. 200 mcg-umeclid 1 inh inhalation DAILY 12/02/23 12/02/23 History 62.5 mcg-vilant 25 mcg inhalat.powder (Trelegy Ellipta) iron,carbonyl 65 mg-vitamin C 125 1 tab PO DAILY 12/02/23 12/02/23 History mg tablet,delayed release (Vitron-C) loteprednol etabonate 0.5 % eye 1 drp OPB BID 12/02/23 12/02/23 History drops,suspension olopatadine 0.1 % eye drops 1 drp OPB BID 12/02/23 12/02/23 History ondansetron HCl 4 mg tablet 4 mg PO Q6H PRN NAUSEA/VOMITING 12/02/23 12/02/23 History pantoprazole 20 mg tablet,delayed 20 mg PO BID 12/02/23 12/02/23 History release Past Med/Surg History Problem List Elevated LFTs GAURAV on CPAP Dyspnea Bronchitis, acute Cough Asthma (Chronic) Weakness (Acute) Dehydration (Acute) Chest pain (Acute 08/17/14) Palpitations (Acute) Nausea (Acute) Diabetes mellitus, type II (Chronic) Hypertension (Chronic) Paroxysmal atrial fibrillation (Chronic) Hypothyroidism (Chronic) Spinal stenosis of lumbar region (Chronic) Dyslipidemia (Chronic) Statin intolerance (Chronic) Pulmonary nodules (Chronic) GERD (gastroesophageal reflux disease) (Chronic) Previous back surgery H/O shoulder surgery Status post appendectomy Status post tonsillectomy S/P TKR (total knee replacement) Medical History Asthma Diabetes mellitus, type II Dyslipidemia GERD (gastroesophageal reflux disease) Hypertension Hypothyroidism Paroxysmal atrial fibrillation Pulmonary nodules Spinal stenosis of lumbar region Statin intolerance Surgical History H/O shoulder surgery Hx of cholecystectomy Previous back surgery S/P TKR (total knee replacement) Status post appendectomy Status post tonsillectomy Family History Mother Coronary heart disease CHF (congestive heart failure) Father Stroke Daughter Hypertension Other Lung cancer Social History Smoking Status: Former smoker packs per day: 0.5; Second Hand Exposure: No; Do You Dip or Chew Tobacco: No; Hx Alcohol Use: No Hx Substance Use: No Preferred Language: French Communication Ability: Effective [employer] Director Required: No Beliefs That Will Affect Care: None marital status: / Current Living Situation: Family Current Living Situation Comment: Lives with daughter Feels Safe at Home: Yes Assistive Devices: Wheelchair Review of Systems Review of Systems: All systems reviewed & are unremarkable except as noted in HPI & below Physical Exam Physical Exam: General- Not in acute distress Head- atraumatic Eyes- PERRL,. ENT- oropharynx clear Neck- supple, no JVD. Lungs- clear to auscultation no wheezing or crackles. Heart- irregular rhythm; no murmur, no gallop. Abdomen- normal bowel sounds, soft, nontender, no distension Extremities- trace pretibial edema present, no erythema seen. Neuro- alert, oriented x 3; PERRL, no facial palsy; no dysarthria; moves extremities. Skin- warm & dry Results & Data Results & Data Vital Signs (Past 12 Hours) Vital Signs Temp Pulse Resp BP Pulse Ox O2 Del Method 12/02/23 06:06 101 H 21 12/02/23 05:48 101 H 12/02/23 05:45 98 H 27 H 91 12/02/23 05:24 92 H 27 H 92 12/02/23 05:12 91 H 40 H 90 12/02/23 05:03 91 H 32 H 93 12/02/23 05:01 130/87 12/02/23 04:45 98 H 44 H 95 12/02/23 04:45 152/79 H 12/02/23 04:30 96 H 32 H 94 12/02/23 04:30 137/72 12/02/23 04:21 97 H 23 95 12/02/23 04:15 126/78 12/02/23 04:15 95 H 33 H 92 12/02/23 04:12 96 H 27 H 92 12/02/23 04:00 95 H 45 H 93 12/02/23 04:00 141/77 H 12/02/23 03:57 95 H 42 H 94 12/02/23 03:30 109 H 23 93 12/02/23 03:21 150 H 21 92 12/02/23 03:00 139/106 H 12/02/23 03:00 144 H 21 94 12/02/23 02:53 151/112 H 12/02/23 02:33 118 H 22 94 12/02/23 02:30 124 H 25 H 91 12/02/23 02:27 120 H 22 92 12/02/23 02:21 94 Room Air 12/02/23 02:12 105 H 16 61 L 12/02/23 02:03 95 Room Air 12/02/23 02:00 119 H 30 H 97 12/02/23 01:53 122/86 12/02/23 01:53 37.6 C H 115 H 16 122/86 94 Room Air 12/02/23 01:52 109 H Diagnostic Findings Laboratory Results WBC 7.66 K/ul (4.8-10.8) 12/02/23 02:41 RBC 4.54 M/uL (4.20-5.40) 12/02/23 02:41 Hgb 14.7 g/dl (12.0-16.0) 12/02/23 02:41 Hct 42.3 % (37.0-47.0) 12/02/23 02:41 MCV 93.2 fL (80.0-100.0) 12/02/23 02:41 MCH 32.4 pg (25.0-34.0) 12/02/23 02:41 MCHC 34.8 g/dL (32.0-36.0) 12/02/23 02:41 RDW Std Deviation 43.5 fL (36.4-46.3) 12/02/23 02:41 RDW Coeff of Anne 12.7 % (11.5-14.5) 12/02/23 02:41 Plt Count 174 K/uL (130-400) 12/02/23 02:41 MPV 9.3 fL (9.4-12.4) L 12/02/23 02:41 Immature Gran % (Auto) 0.3 % 12/02/23 02:41 Neut % (Auto) 96.1 % 12/02/23 02:41 Lymph % (Auto) 2.2 % 12/02/23 02:41 [place] % (Auto) 0.8 % 12/02/23 02:41 Eos % (Auto) 0.5 % 12/02/23 02:41 Baso % (Auto) 0.1 % 12/02/23 02:41 Neut # (Auto) 7.36 K/uL (1.40-6.50) H 12/02/23 02:41 Lymph # (Auto) 0.17 K/uL (1.20-3.40) L 12/02/23 02:41 [place] # (Auto) 0.06 K/uL (0.11-0.59) L 12/02/23 02:41 Eos # (Auto) 0.04 K/uL (0.00-0.50) 12/02/23 02:41 Baso # (Auto) 0.01 K/uL (0.00-0.20) 12/02/23 02:41 Immature Gran # (Auto) 0.02 K/uL (0.01-0.20) 12/02/23 02:41 Sodium 136 mmol/L (136-145) 12/02/23 02:41 Potassium 3.4 mmol/L (3.5-5.1) L 12/02/23 02:41 Chloride 101 mmol/L (98-107) 12/02/23 02:41 Carbon Dioxide 25 mmol/L (21-32) 12/02/23 02:41 Anion Gap 10 (3-11) 12/02/23 02:41 BUN 35 mg/dl (6-23) H 12/02/23 02:41 Creatinine 1.32 mg/dl (0.6-1.2) H 12/02/23 02:41 Est Cr Clr Drug Dosing 33.4 ml/min 12/02/23 02:41 Est GFR ( Amer) 44.1 ml/min 12/02/23 02:41 Est GFR (Non-Af Amer) 38.0 ml/min 12/02/23 02:41 BUN/Creatinine Ratio 26.5 (10-20) H 12/02/23 02:41 Glucose 122 mg/dl (70-99(Fasting)) H 12/02/23 02:41 Lactate 1.5 mmol/L (0.4-2.0) 12/02/23 02:41 Calcium 8.0 mg/dl (8.6-10.3) L 12/02/23 02:41 Magnesium 1.9 mg/dl (1.7-2.4) 12/02/23 02:41 Total Bilirubin 3.6 mg/dl (0.2-1.0) H 12/02/23 02:41 Direct Bilirubin 2.4 mg/dl (0-0.2) H 12/02/23 02:41 AST 1502 U/L (13-39) H 12/02/23 02:41 ALT 2062 U/L (7-52) H 12/02/23 02:41 Alkaline Phosphatase 235 U/L (34-104) H 12/02/23 02:41 Troponin I High Sens 22.3 pg/ml (0-14) H 12/02/23 04:35 Total Protein 6.8 gm/dl (6.0-8.3) 12/02/23 02:41 Albumin 3.9 gm/dl (3.4-5.0) 12/02/23 02:41 Procalcitonin 7.29 ng/ml (0-0.5) H 12/02/23 02:41 Urine Color Dark Yellow 12/02/23 03:00 Urine Appearance Cloudy (Clear) A 12/02/23 03:00 Urine pH 5.5 (4.5-7.5) 12/02/23 03:00 Ur Specific [place] 1.026 (1.000-1.030) 12/02/23 03:00 Urine Protein 1+ (Negative) H 12/02/23 03:00 Urine Glucose (UA) Negative (Negative) 12/02/23 03:00 Urine Ketones Trace (Negative) H 12/02/23 03:00 Urine Blood 1+ (Negative) H 12/02/23 03:00 Urine Nitrite Positive (Negative) A 12/02/23 03:00 Urine Bilirubin 2+ (Negative) H 12/02/23 03:00 Urine Urobilinogen Negative (Negative) 12/02/23 03:00 Ur Leukocyte Esterase 1+ (Negative) H 12/02/23 03:00 Urine WBC (Auto) 0-5 /hpf (0-5) 12/02/23 03:00 Urine RBC (Auto) 11-20 /hpf (0-2) H 12/02/23 03:00 U Hyaline Cast (Auto) 3-5 /lpf (0-2) H 12/02/23 03:00 U Epithel Cells (Auto) 11-20 /hpf (0-2) H 12/02/23 03:00 Urine Bacteria (Auto) None Seen (None Seen) 12/02/23 03:00 Granular Casts Present /lpf (None Prsent) A 12/02/23 03:00 Acetaminophen < 3 ug/ml (10-30) L 12/02/23 06:17 ECG Additional Comments: ECG. A-fib with rapid ventricular response at the rate of 125. No acute ST changes seen Code Status & VTE Plan VTE Prophylaxis Plan VTE Prophylaxis will be ordered: Yes
[2023-12-02] MEDS ORDERED: NITROGLYCERIN SL 0.4 MG/TAB TAB SL PRN (07:40)
[2023-12-02] MEDS ORDERED: ALBUTEROL HFA 8 GM INHALER INH PRN (07:40)
[2023-12-02] MEDS ORDERED: VANCOMYCIN CONSULT ACTIVE PRN (07:40)
[2023-12-02] MEDS ORDERED: VANCOMYCIN HCL 1,000 MG in SODIUM CHLORIDE 0.9% 250 ML IV SCH (07:40)
[2023-12-02] MEDS ORDERED: DOCUSATE SODIUM 100 MG CAP PO PRN (07:40)
[2023-12-02] MEDS ORDERED: POLYETHYLENE (MIRALAX) 17 GM PACK PO PRN ×2 (07:40)
[2023-12-02] MEDS ORDERED: GLUCAGON FOR INJ 1 MG VIAL SQ PRN (08:04)
[2023-12-02] MEDS ORDERED: DEXTROSE 50% 50 ML SYRINGE IV PRN (08:04)
[2023-12-02] MEDS ORDERED: GLUCOSE 10 TAB/TUBE PO PRN (08:04)
[2023-12-02] MEDS ORDERED: GLUCOSE 40% GEL 15 GM TUBE PO PRN (08:04)
[2023-12-02] MEDS ORDERED: CARBOHYDRATES FOR HYPOGLYCEMIA PO PRN (08:04)
--- NOTE | 2023-12-02 08:28 | XRay Report ---
SINGLE VIEW CHEST CLINICAL HISTORY: Sepsis. FINDINGS: 2 AP, portable, upright chest radiographs are compared to study dated 12/13/2022 and correla john with chest CT dated 04/30/2017. The examination is degraded by portable technique and patient rota tion. The cardiac silhouette is enlarged noting atherosclerotic calcification of the thoracic aorta. The pulmonary vasculature is noncongested. Chronic interstitial thickening is similar to previous. T here is bibasilar scarring/atelectasis. No airspace consolidation or large pleural effusion is identi fied. No pneumothorax is seen. The skeletal structures are osteopenic. The bony thorax is grossly int act. Cholecystectomy clips are noted in the right upper quadrant. IMPRESSION: No acute cardiopulmonary abnormality is identified. ACT 112: Negative or not required by law. Electronically signed by: Slick Bragg M.D. 12/02/2023 8:26 AM
[2023-12-02] MEDS ORDERED: NON-FORMULARY MEDICATION (Fluticasone-Umeclidin-Vilanter [Trelegy Ellipta] 200-62.5-25 mcg INH SCH (09:00)
[2023-12-02] MEDS: HEPARIN SODIUM/DEXTROSE 25,000 UNITS/500 ML BAG IV SCH (09:02)
[2023-12-02] MEDS: VANCOMYCIN HCL 2,000 MG in SODIUM CHLORIDE 0.9% 500 ML IV STA (09:13)
--- NOTE | 2023-12-02 09:16 | CT Scan Report ---
CT SCAN OF THE ABDOMEN AND PELVIS WITHOUT IV CONTRAST CLINICAL HISTORY: Elevated hepatic transaminases COMPARISON STUDY: Abdominal CT dated 12/13/2022. TECHNIQUE: CT scan of the abdomen and pelvis is performed from the lung bases to the proximal femora. Images are reviewed in the axial, sagittal, and coronal planes. IV contrast was not administered for this examination. Note that the examination was performed in suboptimal fashion without oral and IV contrast. A dose lowering technique was utilized adhering to the principles of ALARA. CT DOSE: 1265.29 mGy.cm FINDINGS: Lung bases: The heart is normal in size and without pericardial effusion. The coronary arteries are d ensely calcified. A small hiatal hernia is noted. A 9 mm left basilar pulmonary nodule on image #10 i s unchanged, as are numerous additional 2-3 mm basilar nodules. There is bibasilar scarring/atelectas is. No airspace consolidation or pleural effusion is identified. Liver: The unenhanced liver is normal in size, contour, and attenuation. There is no intrahepatic morelia iary ductal dilatation. Gallbladder: Surgically absent noting clips in the gallbladder fossa. Spleen: Normal in size and attenuation. Pancreas: The unenhanced pancreas is moderately atrophic and grossly unremarkable. Adrenal glands: Unremarkable. Kidneys: The unenhanced kidneys demonstrate mild cortical atrophy and are without hydronephrosis. The re are no renal calculi identified. A 1.5 cm cyst is noted in the left. Abdominal vasculature: There is advanced atherosclerotic calcification and mild ectasia of the abdomi nal aorta. Bowel: There is no bowel obstruction. Mild fecal retention is seen throughout the colon. The appendix is not identified and reported surgically absent. Peritoneum: There is no intraperitoneal free air or abdominal ascites. There is a small fat-containin g umbilical hernia. Lymphadenopathy: None. Pelvic viscera: The bladder, uterus, and adnexa are normal as visualized. Skeletal structures: The skeletal structures are osteopenic. Postsurgical and spondylotic change is n oted in the lumbar spine. No lytic or blastic lesions are seen. IMPRESSION: 1. No acute infectious or inflammatory findings are identified in the abdomen or pelvis. 2. The liver is normal in size and attenuation. 3. Bibasilar pulmonary nodules are pathologically indeterminate and unchanged from prior studies. 4. Additional findings as above. ACT 112: Negative or not required by law. Electronically signed by: Slick Bragg M.D. 12/02/2023 9:13 AM
--- NOTE | 2023-12-02 09:25 | Cardiology Consultation ---
Date of Consultation December 02, 2023 Assessment & Plan (1) Paroxysmal atrial fibrillation: (2) Volume depletion: (3) Diastolic heart failure: Plan UTI possible sepsis. As per Hospitalist Abnormal LFT's. Workup as per Hospitalist. Hold rosuvastatin and ezetimibe for now. Recurrent atrial fibrillation. ? Symptomatic. Change from metoprolol tartrate 75 AM and 50 PM to metoprolol succinate 75 mg twice a day for now. Continue telemetry. [id number] 7 points. Risks and benefits of anticoagulation discussed with patient and daughters. Via shared decision making, the benefits of anticoagulation appear to be greater than the risks. Continue IV heparin, transitioning to Eliquis anticoagulation prior to discharge. Chronic diastolic CHF. Patient currently volume depleted. Hold prior to arrival HCTZ 12.5 mg/day. Continue IV fluids. Supplement potassium orally. Hypertension. Currently normotensive to mildly hypotensive. Hold HTN and irbesartan GAURAV. Chronically noncompliant with CPAP. Recommend revaluation and treatment post discharge. I spent a total of 52 minutes on the date of service in preparation, delivery, and documentation of the care provided to this patient excluding any time spent in the performance of separately billed services. This visit was a split-shared visit with the substantive portion of the medical decision making performed by the supervising respiratory care practitioner/billing provider. Supervising Physician Co-Signing Physician Notes I have reviewed the advanced practitioner's documentation on the date of service referenced in note, and I agree with, and take responsibility for the plan of care. 78-year-old with known , hypertension, dyslipidemia, diabetes mellitus, obstructive sleep apnea untreated, chronic kidney disease Presents with UTI and atrial fibrillation with rapid ventricular response has not been on anticoagulation. Prior episodes of brief A-fib in 2015. A-fib with RVR: rate control with beta-blockers now on heparin drip to be transitioned to Eliquis I spent a total of [20] minutes coordinating, documenting, and providing care for this patient excluding time spent in the performance of separately billed services or time spent by another provider. History of Present Illness Reason for Consultation: Atrial fibrillation with a rapid ventricular response Requesting Physician: Dr. Parks Attending Physician: Dr. Dominick Tatum MD History of Present Illness Ms. Violeta Calvert is an 78-year-old female who recently had a recurrent sinus infection. She notes becoming sick last week with dysuria initially followed by decreased appetite and decreased oral intake. Sunday she submitted a specimen to evaluate for urinary tract infection and was prescribed Keflex 4 times per day empirically starting Sunday night. Sunday and Sunday her daughters observed hallucinations as well as increased fatigue and lethargy. She also complained of some chest tightness and worsening shortness of breath. Daughters note chronic gradually worsening, significant, anxiety. She was brought to the ER, EKG revealing atrial fibrillation with a rapid ventricular response. IV fluids administered with improvement in heart rates. Personal review of telemetry reveals patient initially presented in atrial fibrillation with a RVR then with spontaneous conversion back to sinus/sinus tachycardia, now back in atrial fibrillation with a rapid ventricular response. IV heparin initiated in the ER along with empiric cefepime. Markedly abnormal LFT's observed as well, undergoing evaluation. She is currently chest pain-free. She denies palpitations. She denies any unusual shortness of breath. She is lying flat with 2/4 daughters at bedside, denying orthopnea or PND. No worsening lower extremity peripheral edema. Daughters note swelling of the hands. No current fevers or rigors. She has chronic headaches. + Mechanical fall x 2 last week. Problem List: 1. Chest pain leading to abnormal stress testing and ultimately September 23, 2015 diagnostic cardiac catheterization at [facility] demonstrating diffuse minor irregularities, no explaination for the abnormal stress test or her symptoms. The left ventricular end diastolic pressure was 20 mmHg. 2. Lone documented episode of paroxysmal atrial fibrillation in August 2014 when hospitalized at [facility] with abdominal pain and discomfort, lapsing briefly into atrial fibrillation with spontaneous return to sinus rhythm. Course notable for acute drug reaction to antibiotic therapy for a possible urinary tract infection with Macrobid, developing severe rash, acute renal dysfunction, transiently worsening anemia. 3. Palpitations, previously documented to be in association with sensed ectopy. 4. Hypertension 5. Dyslipidemia with poor tolerance to statin therapy 6. Type II diabetes mellitus 7. Stage III chronic kidney disease 8. Obstructive sleep apnea, untreated, unable to tolerate CPAP therapy. 9. Hiatal hernia 10. Gastritis and GERD 11. Hypothyroidism 12. Migraine headaches 13. Vertigo 14. Osteoarthritis status post left total knee replacement at [facility] in July 2016, lumbar spine stenosis 15. Chronic constipation 16. Asthma 17. B12 deficiency 18. Anxiety and depression Family History: Father with a stroke. Mother had congestive heart failure and CAD. Sister with colon cancer. Brother with lung cancer. Four daughters without cardiac issues. Social History: Reformed smoker. She smoked for about 5 years in her 20's. No significant alcohol. No illegal drug use. Notes "the doctor retired me," from [facility] in the [employer] department. Four children, all girls. Allergies Allergy/AdvReac Type Severity Reaction Status Date / Time Iodinated Contrast Media Allergy Intermediate HIVES Verified 12/02/23 01:55 iodine Allergy Intermediate Hives Verified 12/02/23 01:55 latex Allergy Intermediate LOCAL SKIN Verified 12/02/23 01:55 IRRITATION lidocaine Allergy Intermediate lidocaine Verified 12/02/23 01:55 patch-skin red,hot flushed feeling nitrofurantoin Allergy Mild RASH Verified 12/02/23 01:55 metformin Allergy Unknown ON Verified 12/02/23 01:55 Wine[employer] MED LIST codeine AdvReac Intermediate N&V Verified 12/02/23 01:55 propoxyphene AdvReac Intermediate NAUSEA AND Verified 12/02/23 01:55 VOMITING Nrojnmb-KVB-MqF Reductase AdvReac Intermediate LEG CRAMPS Verified 12/02/23 01:55 Inhibitor [Ikwxamu-Lfj-Kpx Reductase Inhibitor] Home Medications Medication Instructions Recorded Confirmed Type irbesartan 150 mg tablet 150 mg PO DAILY 02/12/19 12/02/23 History metoprolol tartrate 50 mg tablet See Rx Instructions .Route .COMPLEX 02/12/19 12/02/23 History albuterol sulfate 90 mcg/actuation 2 puff inhalation Q6H PRN 06/12/19 12/02/23 History aerosol inhaler Shortness Of Breath Or Wheezing #1 g rosuvastatin 10 mg tablet 10 mg PO DAILY 06/12/19 12/02/23 History polyethylene glycol 3350 17 gram 17 gm PO HS PRN Constipation 12/11/19 12/02/23 History oral powder packet (Miralax) sertraline 100 mg tablet 100 - 200 mg PO DAILY 12/11/19 12/02/23 History acetaminophen 650 mg 650 mg PO Q8H PRN pain 12/13/22 12/02/23 History tablet,extended release cyanocobalamin (vitamin B-12) 1,000 mcg IM MONTHLY 12/13/22 12/02/23 History 1,000 mcg/mL injection kit dulaglutide 0.75 mg/0.5 mL 0.75 mg subcut WK 12/13/22 12/02/23 History subcutaneous pen injector (Trgena) ezetimibe 10 mg tablet 10 mg PO DAILY 12/13/22 12/02/23 History fluticasone propionate 50 2 spray intranasal DAILY 12/13/22 12/02/23 History mcg/actuation nasal spray,suspension hydrochlorothiazide 12.5 mg tablet 12.5 mg PO DAILY 12/13/22 12/02/23 History levothyroxine 150 mcg tablet 150 mcg PO DAILYBB 12/13/22 12/02/23 History loratadine 10 mg tablet 10 mg PO DAILY 12/13/22 12/02/23 History Relaxium Sleep Suppliment 1 - 2 tab PO HS PRN Sleep 12/02/23 12/02/23 History alprazolam 0.5 mg tablet 0.5 mg PO BID 12/02/23 12/02/23 History aspirin 81 mg tablet,delayed 81 mg PO DAILY 12/02/23 12/02/23 History release cephalexin 500 mg capsule 500 mg PO QID 12/02/23 12/02/23 History docusate sodium 100 mg capsule 200 mg PO HS PRN Constipation 12/02/23 12/02/23 History fluticasone fur. 200 mcg-umeclid 1 inh inhalation DAILY 12/02/23 12/02/23 History 62.5 mcg-vilant 25 mcg inhalat.powder (Trelegy Ellipta) iron,carbonyl 65 mg-vitamin C 125 1 tab PO DAILY 12/02/23 12/02/23 History mg tablet,delayed release (Vitron-C) loteprednol etabonate 0.5 % eye 1 drp OPB BID 12/02/23 12/02/23 History drops,suspension olopatadine 0.1 % eye drops 1 drp OPB BID 12/02/23 12/02/23 History ondansetron HCl 4 mg tablet 4 mg PO Q6H PRN NAUSEA/VOMITING 12/02/23 12/02/23 History pantoprazole 20 mg tablet,delayed 20 mg PO BID 12/02/23 12/02/23 History release Patient History Medical History Asthma Diabetes mellitus, type II Dyslipidemia GERD (gastroesophageal reflux disease) Hypertension Hypothyroidism Paroxysmal atrial fibrillation Pulmonary nodules Spinal stenosis of lumbar region Statin intolerance Surgical History H/O shoulder surgery Hx of cholecystectomy Previous back surgery S/P TKR (total knee replacement) Status post appendectomy Status post tonsillectomy Family History Mother Coronary heart disease CHF (congestive heart failure) Father Stroke Daughter Hypertension Other Lung cancer Social History Smoking Status: Former smoker packs per day: 0.5; Second Hand Exposure: No; Do You Dip or Chew Tobacco: No; Hx Alcohol Use: No Hx Substance Use: No Preferred Language: Hong Konger Communication Ability: Effective Edge Inker Heels Required: No Beliefs That Will Affect Care: None marital status: / Current Living Situation: Family Current Living Situation Comment: Lives with daughter Feels Safe at Home: Yes Assistive Devices: Wheelchair Review of Systems Review of Systems: Complete Review of Systems is as stated above, negative, or noncontributory. Physical Exam Physical Exam: General: A&Ox3. NAD. HENT: Normocephalic and atraumatic. Eyes: PER. Neck: Bilateral carotid bruits. No JVD. Lungs: Diminished but clear to auscultation. Cardiac: Irregularly irregular at 110 bpm. Soft apical systolic murmur. No diastolic murmur. Abdomen: +BS. Soft. Nontender. Extremities: Varicose veins. No lower extremity edema. No clubbing. No cyanosis. Pulses: 1-2/4 bilaterally. Neurologic: No focal deficits. Results & Data Vital Signs (Past 12 Hours) Vital Signs Temp Pulse Pulse Resp BP BP Pulse Ox 12/02/23 07:55 12/02/23 07:55 37.1 C 88 20 109/58 L 93 12/02/23 07:49 93 H 12/02/23 06:06 101 H 21 12/02/23 05:48 101 H 12/02/23 05:45 98 H 27 H 91 12/02/23 05:24 92 H 27 H 92 12/02/23 05:12 91 H 40 H 90 12/02/23 05:03 91 H 32 H 93 12/02/23 05:01 130/87 12/02/23 04:45 98 H 44 H 95 12/02/23 04:45 152/79 H 12/02/23 04:30 96 H 32 H 94 12/02/23 04:30 137/72 12/02/23 04:21 97 H 23 95 12/02/23 04:15 126/78 12/02/23 04:15 95 H 33 H 92 12/02/23 04:12 96 H 27 H 92 12/02/23 04:00 95 H 45 H 93 12/02/23 04:00 141/77 H 12/02/23 03:57 95 H 42 H 94 12/02/23 03:30 109 H 23 93 12/02/23 03:21 150 H 21 92 12/02/23 03:00 139/106 H 12/02/23 03:00 144 H 21 94 12/02/23 02:53 151/112 H 12/02/23 02:33 118 H 22 94 12/02/23 02:30 124 H 25 H 91 12/02/23 02:27 120 H 22 92 12/02/23 02:21 94 12/02/23 02:12 105 H 16 61 L 12/02/23 02:03 95 12/02/23 02:00 119 H 30 H 97 12/02/23 01:53 122/86 12/02/23 01:53 37.6 C H 115 H 16 122/86 94 12/02/23 01:52 109 H Pulse Ox O2 Del Method O2 Del Method 12/02/23 07:55 93 Room Air 12/02/23 07:55 Room Air 12/02/23 07:49 12/02/23 06:06 12/02/23 05:48 12/02/23 05:45 12/02/23 05:24 12/02/23 05:12 12/02/23 05:03 12/02/23 05:01 12/02/23 04:45 12/02/23 04:45 12/02/23 04:30 12/02/23 04:30 12/02/23 04:21 12/02/23 04:15 12/02/23 04:15 12/02/23 04:12 12/02/23 04:00 12/02/23 04:00 12/02/23 03:57 12/02/23 03:30 12/02/23 03:21 12/02/23 03:00 12/02/23 03:00 12/02/23 02:53 12/02/23 02:33 12/02/23 02:30 12/02/23 02:27 12/02/23 02:21 Room Air 12/02/23 02:12 12/02/23 02:03 Room Air 12/02/23 02:00 12/02/23 01:53 12/02/23 01:53 Room Air 12/02/23 01:52 Laboratory Results Cardiac Enzymes 12/02/23 12/02/23 Range/Units 02:41 04:35 AST 1502 H (13-39) U/L Troponin I High Sens 20.1 H 22.3 H (0-14) pg/ml CBC 12/02/23 Range/Units 02:41 WBC 7.66 (4.8-10.8) K/ul RBC 4.54 (4.20-5.40) M/uL Hgb 14.7 (12.0-16.0) g/dl Hct 42.3 (37.0-47.0) % Plt Count 174 (130-400) K/uL Neut # (Auto) 7.36 H (1.40-6.50) K/uL Lymph # (Auto) 0.17 L (1.20-3.40) K/uL Alpine # (Auto) 0.06 L (0.11-0.59) K/uL Eos # (Auto) 0.04 (0.00-0.50) K/uL Baso # (Auto) 0.01 (0.00-0.20) K/uL Comprehensive Metabolic Panel 12/02/23 Range/Units 02:41 Sodium 136 (136-145) mmol/L Potassium 3.4 L (3.5-5.1) mmol/L Chloride 101 (98-107) mmol/L Carbon Dioxide 25 (21-32) mmol/L BUN 35 H (6-23) mg/dl Creatinine 1.32 H (0.6-1.2) mg/dl Glucose 122 H (70-99(Fasting)) mg/dl Calcium 8.0 L (8.6-10.3) mg/dl Direct Bilirubin 2.4 H (0-0.2) mg/dl AST 1502 H (13-39) U/L ALT 2062 H (7-52) U/L Alkaline Phosphatase 235 H (34-104) U/L Total Protein 6.8 (6.0-8.3) gm/dl Albumin 3.9 (3.4-5.0) gm/dl Intake and Output 12/01/23 12/02/23 12/02/23 22:59 06:59 14:59 Intake Total 1000 / 1000 Balance 1000 / 1000 Intake: IV 1000 / 1000 Sodium Chloride 0.9% 500 ml @ 1000 / 1000 999 mls/hr IV .Q31M ONE Rx#: [id number] Other: Weight 87.2 kg Weight Measurement Method Estimated by Patient Diagnostic Findings October 19, 2020 TTE Interpretation Summary (as per Dr. Quick): The qualitative LV ejection fraction is 60-64% (normal). The LV wall thickness is mildly increased (concentric). The left ventricular diastolic function is mildly abnormal (grade I). There is mild mitral annular calcification. Compared to prior study of 09/14/2015, there is no significant change. September 23, 2015 diagnostic cardiac catheterization: Diffuse minor irregularities, no explanation for the abnormal stress test or her symptoms. LVEDP 20mmHg. CXR this admission is without acute cardiopulmonary findings.
[2023-12-02] MEDS: Heparin IV Adult Wt-Based Low-Dose *NO* INITIAL Bolus Protocol IV STA (09:58)
[2023-12-02] MEDS: SODIUM CHLORIDE 0.9% 1,000 ML IV SCH (10:00)
[2023-12-02] MEDS: ALPRAZolam 0.5 MG TABLET PO SCH (10:01)
[2023-12-02] MEDS: LEVOTHYROXINE SODIUM 150 MCG TABLET PO SCH (10:01)
[2023-12-02] MEDS: ASPIRIN 81 MG ECTAB PO SCH (10:01)
[2023-12-02] MEDS: CALCIUM 600MG + VIT D 400 IU TAB PO SCH (10:01)
[2023-12-02] MEDS: POTASSIUM CHLORIDE CRTAB 20 MEQ TABCR PO STA (10:01)
[2023-12-02] MEDS: EZETIMIBE 10 MG TAB PO SCH (10:02)
[2023-12-02] MEDS: FLUTICASONE PROPIONATE NA SPR 16 GM BTL SCH (10:03)
[2023-12-02] MEDS: METOPROLOL TARTRATE 50 MG TAB PO SCH (10:03)
[2023-12-02] MEDS: LORATADINE 10 MG TAB PO SCH (10:03)
[2023-12-02] MEDS: PANTOprazole 40 MG TAB PO SCH (10:04)
[2023-12-02] MEDS: SERTRALINE HCL 100 MG TABLET PO SCH (10:04)
[2023-12-02] MEDS: UMECLIDINIUM/VILANTEROL 62.5/25MCG 7 PUFFS/INHALER INH SCH (10:04)
[2023-12-02] MEDS: FLUTICASONE FUROATE 200MCG 14 PUFFS/INHALER INH SCH (10:05)
--- NOTE | 2023-12-02 11:01 | Gastrointestinal Consultation ---
Date of Consultation December 02, 2023 Assessment & Plan (1) Elevated LFTs: Multifactorial however DDx includes DILI from recent ABx use, Tylenol overdose, Sepsis Hepatopathy, Congestive Hepatopathy. Recommend: Check INR. Start NAC per protocol for 2 days, even though she is out of the toxicity range she may still benefit, also there is emerging data for use in DILI. Check Viral Hepatitis panel including EBV and autoimmune panel. Avoid Hepatotoxic meds. Monitor LFTs. History of Present Illness Reason for Consultation: Abnormal LFTs Attending Physician: Dominick Tatum MD History of Present Illness 78 years old female patient with medical comorbids including HTN, CHF, DM, DLP, presented with generalized weakness, she was treated with Cephalexin last week for UTI, currently her UA is consistent with UTI however her LFTs are elevated with AST/ALT in thousand range and elevated T.bili to 3. Denies any abdominal pain, nausea or vomiting. She reports taking excessive Tylenol of arthritis however her Tylenol level now is normal. CT scan showed no biliary ductal dilation, s/p cholecystectomy. Currently on IV ABx and IV Heparin for Arrhythmia. Allergies Allergy/AdvReac Type Severity Reaction Status Date / Time Iodinated Contrast Media Allergy Intermediate HIVES Verified 12/02/23 01:55 iodine Allergy Intermediate Hives Verified 12/02/23 01:55 latex Allergy Intermediate LOCAL SKIN Verified 12/02/23 01:55 IRRITATION lidocaine Allergy Intermediate lidocaine Verified 12/02/23 01:55 patch-skin red,hot flushed feeling nitrofurantoin Allergy Mild RASH Verified 12/02/23 01:55 metformin Allergy Unknown ON Verified 12/02/23 01:55 Azzure IT MED LIST codeine AdvReac Intermediate N&V Verified 12/02/23 01:55 propoxyphene AdvReac Intermediate NAUSEA AND Verified 12/02/23 01:55 VOMITING Plsvrir-IHN-XnU Reductase AdvReac Intermediate LEG CRAMPS Verified 12/02/23 01:55 Inhibitor [Ciqzylo-Jhl-Vsh Reductase Inhibitor] Home Medications Medication Instructions Recorded Confirmed Type irbesartan 150 mg tablet 150 mg PO DAILY 02/12/19 12/02/23 History metoprolol tartrate 50 mg tablet See Rx Instructions .Route .COMPLEX 02/12/19 12/02/23 History albuterol sulfate 90 mcg/actuation 2 puff inhalation Q6H PRN 06/12/19 12/02/23 History aerosol inhaler Shortness Of Breath Or Wheezing #1 g rosuvastatin 10 mg tablet 10 mg PO DAILY 06/12/19 12/02/23 History polyethylene glycol 3350 17 gram 17 gm PO HS PRN Constipation 12/11/19 12/02/23 History oral powder packet (Miralax) sertraline 100 mg tablet 100 - 200 mg PO DAILY 12/11/19 12/02/23 History acetaminophen 650 mg 650 mg PO Q8H PRN pain 12/13/22 12/02/23 History tablet,extended release cyanocobalamin (vitamin B-12) 1,000 mcg IM MONTHLY 12/13/22 12/02/23 History 1,000 mcg/mL injection kit dulaglutide 0.75 mg/0.5 mL 0.75 mg subcut WK 12/13/22 12/02/23 History subcutaneous pen injector (Trulicity) ezetimibe 10 mg tablet 10 mg PO DAILY 12/13/22 12/02/23 History fluticasone propionate 50 2 spray intranasal DAILY 12/13/22 12/02/23 History mcg/actuation nasal spray,suspension hydrochlorothiazide 12.5 mg tablet 12.5 mg PO DAILY 12/13/22 12/02/23 History levothyroxine 150 mcg tablet 150 mcg PO DAILYBB 12/13/22 12/02/23 History loratadine 10 mg tablet 10 mg PO DAILY 12/13/22 12/02/23 History Relaxium Sleep Suppliment 1 - 2 tab PO HS PRN Sleep 12/02/23 12/02/23 History alprazolam 0.5 mg tablet 0.5 mg PO BID 12/02/23 12/02/23 History aspirin 81 mg tablet,delayed 81 mg PO DAILY 12/02/23 12/02/23 History release cephalexin 500 mg capsule 500 mg PO QID 12/02/23 12/02/23 History docusate sodium 100 mg capsule 200 mg PO HS PRN Constipation 12/02/23 12/02/23 History fluticasone fur. 200 mcg-umeclid 1 inh inhalation DAILY 12/02/23 12/02/23 History 62.5 mcg-vilant 25 mcg inhalat.powder (Trelegy Ellipta) iron,carbonyl 65 mg-vitamin C 125 1 tab PO DAILY 12/02/23 12/02/23 History mg tablet,delayed release (Vitron-C) loteprednol etabonate 0.5 % eye 1 drp OPB BID 12/02/23 12/02/23 History drops,suspension olopatadine 0.1 % eye drops 1 drp OPB BID 12/02/23 12/02/23 History ondansetron HCl 4 mg tablet 4 mg PO Q6H PRN NAUSEA/VOMITING 12/02/23 12/02/23 History pantoprazole 20 mg tablet,delayed 20 mg PO BID 12/02/23 12/02/23 History release Patient History Medical History Asthma Diabetes mellitus, type II Dyslipidemia GERD (gastroesophageal reflux disease) Hypertension Hypothyroidism Paroxysmal atrial fibrillation Pulmonary nodules Spinal stenosis of lumbar region Statin intolerance Surgical History H/O shoulder surgery Hx of cholecystectomy Previous back surgery S/P TKR (total knee replacement) Status post appendectomy Status post tonsillectomy Family History Mother Coronary heart disease CHF (congestive heart failure) Father Stroke Daughter Hypertension Other Lung cancer Social History Smoking Status: Former smoker packs per day: 0.5; Second Hand Exposure: No; Do You Dip or Chew Tobacco: No; Hx Alcohol Use: No Hx Substance Use: No Preferred Language: Welsh Communication Ability: Effective Child Abuse Worker Required: No Beliefs That Will Affect Care: None marital status: / Current Living Situation: Family Current Living Situation Comment: Lives with daughter Feels Safe at Home: Yes Assistive Devices: Wheelchair Review of Systems Review of Systems: All systems reviewed & are unremarkable except as noted in HPI & below Physical Exam Constitutional: comfortable; no acute distress Respiratory: normal respiratory effort, lungs clear to auscultation Cardiovascular: RRR, no murmur, no edema Gastrointestinal (Abdomen): normal bowel sounds, soft, nontender, no hepatosplenomegaly Results & Data Vital Signs (Past 12 Hours) Vital Signs Temp Pulse Pulse Resp BP BP Pulse Ox 12/02/23 07:55 12/02/23 07:55 37.1 C 88 20 109/58 L 93 12/02/23 07:49 93 H 12/02/23 06:06 101 H 21 12/02/23 05:48 101 H 12/02/23 05:45 98 H 27 H 91 12/02/23 05:24 92 H 27 H 92 12/02/23 05:12 91 H 40 H 90 12/02/23 05:03 91 H 32 H 93 12/02/23 05:01 130/87 12/02/23 04:45 98 H 44 H 95 12/02/23 04:45 152/79 H 12/02/23 04:30 96 H 32 H 94 12/02/23 04:30 137/72 12/02/23 04:21 97 H 23 95 12/02/23 04:15 126/78 12/02/23 04:15 95 H 33 H 92 12/02/23 04:12 96 H 27 H 92 12/02/23 04:00 95 H 45 H 93 12/02/23 04:00 141/77 H 12/02/23 03:57 95 H 42 H 94 12/02/23 03:30 109 H 23 93 12/02/23 03:21 150 H 21 92 12/02/23 03:00 139/106 H 12/02/23 03:00 144 H 21 94 12/02/23 02:53 151/112 H 12/02/23 02:33 118 H 22 94 12/02/23 02:30 124 H 25 H 91 12/02/23 02:27 120 H 22 92 12/02/23 02:21 94 12/02/23 02:12 105 H 16 61 L 12/02/23 02:03 95 12/02/23 02:00 119 H 30 H 97 12/02/23 01:53 122/86 12/02/23 01:53 37.6 C H 115 H 16 122/86 94 12/02/23 01:52 109 H Pulse Ox O2 Del Method O2 Del Method 12/02/23 07:55 93 Room Air 12/02/23 07:55 Room Air 12/02/23 07:49 12/02/23 06:06 12/02/23 05:48 12/02/23 05:45 12/02/23 05:24 12/02/23 05:12 12/02/23 05:03 12/02/23 05:01 12/02/23 04:45 12/02/23 04:45 12/02/23 04:30 12/02/23 04:30 12/02/23 04:21 12/02/23 04:15 12/02/23 04:15 12/02/23 04:12 12/02/23 04:00 12/02/23 04:00 12/02/23 03:57 12/02/23 03:30 12/02/23 03:21 12/02/23 03:00 12/02/23 03:00 12/02/23 02:53 12/02/23 02:33 12/02/23 02:30 12/02/23 02:27 12/02/23 02:21 Room Air 12/02/23 02:12 12/02/23 02:03 Room Air 12/02/23 02:00 12/02/23 01:53 12/02/23 01:53 Room Air 12/02/23 01:52 Laboratory Results Laboratory Results - last 24 hr 12/02/23 12/02/23 12/02/23 02:41 03:00 04:35 WBC 7.66 RBC 4.54 Hgb 14.7 Hct 42.3 MCV 93.2 MCH 32.4 MCHC 34.8 RDW Std Deviation 43.5 RDW Coeff of Anne 12.7 Plt Count 174 MPV 9.3 L Immature Gran % (Auto) 0.3 Neut % (Auto) 96.1 Lymph % (Auto) 2.2 Bland % (Auto) 0.8 Eos % (Auto) 0.5 Baso % (Auto) 0.1 Neut # (Auto) 7.36 H Lymph # (Auto) 0.17 L Bland # (Auto) 0.06 L Eos # (Auto) 0.04 Baso # (Auto) 0.01 Immature Gran # (Auto) 0.02 Sodium 136 Potassium 3.4 L Chloride 101 Carbon Dioxide 25 Anion Gap 10 BUN 35 H Creatinine 1.32 H Est Cr Clr Drug Dosing 33.4 Est GFR ( Amer) 44.1 Est GFR (Non-Af Amer) 38.0 BUN/Creatinine Ratio 26.5 H Glucose 122 H Lactate 1.5 Calcium 8.0 L Magnesium 1.9 Total Bilirubin 3.6 H Direct Bilirubin 2.4 H AST 1502 H ALT 2062 H Alkaline Phosphatase 235 H Troponin I High Sens 20.1 H 22.3 H Total Protein 6.8 Albumin 3.9 Procalcitonin 7.29 H Urine Color Dark Yellow Urine Appearance Cloudy A Urine pH 5.5 Ur Specific Maxwell 1.026 Urine Protein 1+ H Urine Glucose (UA) Negative Urine Ketones Trace H Urine Blood 1+ H Urine Nitrite Positive A Urine Bilirubin 2+ H Urine Urobilinogen Negative Ur Leukocyte Esterase 1+ H Urine WBC (Auto) 0-5 Urine RBC (Auto) 11-20 H U Hyaline Cast (Auto) 3-5 H U Epithel Cells (Auto) 11-20 H Urine Bacteria (Auto) None Seen Granular Casts Present A Acetaminophen 12/02/23 06:17 WBC RBC Hgb Hct MCV MCH MCHC RDW Std Deviation RDW Coeff of Anne Plt Count MPV Immature Gran % (Auto) Neut % (Auto) Lymph % (Auto) Bland % (Auto) Eos % (Auto) Baso % (Auto) Neut # (Auto) Lymph # (Auto) Bland # (Auto) Eos # (Auto) Baso # (Auto) Immature Gran # (Auto) Sodium Potassium Chloride Carbon Dioxide Anion Gap BUN Creatinine Est Cr Clr Drug Dosing Est GFR ( Amer) Est GFR (Non-Af Amer) BUN/Creatinine Ratio Glucose Lactate Calcium Magnesium Total Bilirubin Direct Bilirubin AST ALT Alkaline Phosphatase Troponin I High Sens Total Protein Albumin Procalcitonin Urine Color Urine Appearance Urine pH Ur Specific Maxwell Urine Protein Urine Glucose (UA) Urine Ketones Urine Blood Urine Nitrite Urine Bilirubin Urine Urobilinogen Ur Leukocyte Esterase Urine WBC (Auto) Urine RBC (Auto) U Hyaline Cast (Auto) U Epithel Cells (Auto) Urine Bacteria (Auto) Granular Casts Acetaminophen < 3 L Diagnostic Findings Laboratory Results - last 24 hr 12/02/23 12/02/23 12/02/23 02:41 03:00 04:35 WBC 7.66 RBC 4.54 Hgb 14.7 Hct 42.3 MCV 93.2 MCH 32.4 MCHC 34.8 RDW Std Deviation 43.5 RDW Coeff of Anne 12.7 Plt Count 174 MPV 9.3 L Immature Gran % (Auto) 0.3 Neut % (Auto) 96.1 Lymph % (Auto) 2.2 Bland % (Auto) 0.8 Eos % (Auto) 0.5 Baso % (Auto) 0.1 Neut # (Auto) 7.36 H Lymph # (Auto) 0.17 L Bland # (Auto) 0.06 L Eos # (Auto) 0.04 Baso # (Auto) 0.01 Immature Gran # (Auto) 0.02 Sodium 136 Potassium 3.4 L Chloride 101 Carbon Dioxide 25 Anion Gap 10 BUN 35 H Creatinine 1.32 H Est Cr Clr Drug Dosing 33.4 Est GFR ( Amer) 44.1 Est GFR (Non-Af Amer) 38.0 BUN/Creatinine Ratio 26.5 H Glucose 122 H Lactate 1.5 Calcium 8.0 L Magnesium 1.9 Total Bilirubin 3.6 H Direct Bilirubin 2.4 H AST 1502 H ALT 2062 H Alkaline Phosphatase 235 H Troponin I High Sens 20.1 H 22.3 H Total Protein 6.8 Albumin 3.9 Procalcitonin 7.29 H Urine Color Dark Yellow Urine Appearance Cloudy A Urine pH 5.5 Ur Specific Maxwell 1.026 Urine Protein 1+ H Urine Glucose (UA) Negative Urine Ketones Trace H Urine Blood 1+ H Urine Nitrite Positive A Urine Bilirubin 2+ H Urine Urobilinogen Negative Ur Leukocyte Esterase 1+ H Urine WBC (Auto) 0-5 Urine RBC (Auto) 11-20 H U Hyaline Cast (Auto) 3-5 H U Epithel Cells (Auto) 11-20 H Urine Bacteria (Auto) None Seen Granular Casts Present A Acetaminophen 12/02/23 06:17 WBC RBC Hgb Hct MCV MCH MCHC RDW Std Deviation RDW Coeff of Anne Plt Count MPV Immature Gran % (Auto) Neut % (Auto) Lymph % (Auto) Bland % (Auto) Eos % (Auto) Baso % (Auto) Neut # (Auto) Lymph # (Auto) Bland # (Auto) Eos # (Auto) Baso # (Auto) Immature Gran # (Auto) Sodium Potassium Chloride Carbon Dioxide Anion Gap BUN Creatinine Est Cr Clr Drug Dosing Est GFR ( Amer) Est GFR (Non-Af Amer) BUN/Creatinine Ratio Glucose Lactate Calcium Magnesium Total Bilirubin Direct Bilirubin AST ALT Alkaline Phosphatase Troponin I High Sens Total Protein Albumin Procalcitonin Urine Color Urine Appearance Urine pH Ur Specific Maxwell Urine Protein Urine Glucose (UA) Urine Ketones Urine Blood Urine Nitrite Urine Bilirubin Urine Urobilinogen Ur Leukocyte Esterase Urine WBC (Auto) Urine RBC (Auto) U Hyaline Cast (Auto) U Epithel Cells (Auto) Urine Bacteria (Auto) Granular Casts Acetaminophen < 3 L
[2023-12-02] MEDS: CALCIUM GLUCONATE 1,000 MG/60 ML BAG IV STA (11:22)
[2023-12-02] MEDS: INSULIN ASPART PER UNIT CHARGE SC SCH (12:03)
[2023-12-02] MEDS: MEROPENEM 500 MG in SYRINGE 0 ML IV SCH (12:15)
[2023-12-02] MEDS: ACETYLCYSTEINE IV ONE (12:19)
[2023-12-02] MEDS: DEXTROSE 5% IV ONE (12:19)
[2023-12-02 13:18] LABS: Albumin Level 3.1 gm/dl (3.4-5.0); Bilirubin Direct 1.1 mg/dl (0-0.2); Bilirubin,Total 2.2 mg/dl (0.2-1.0); Total Protein 5.5 gm/dl (6.0-8.3); Troponin I High Sensitivity 37.5 pg/ml (0-14)
[2023-12-02 13:19] LABS: INR 1.2 (0.9-1.1); Prothrombin Time 13.2 Seconds (9.0-12.0)
[2023-12-02 13:27] LABS: Thyroid Stimulating Hormone 1.389 uIu/ml (0.300-4.500)
[2023-12-02] MEDS: ACETYLCYSTEINE IV SCH ×2 (13:32→23:29)
[2023-12-02] MEDS: DEXTROSE 5% IV SCH ×2 (13:32→23:29)
[2023-12-02] MEDS: [UNRECOGNIZED DRUG - REMARK] SCH (15:52)
--- NOTE | 2023-12-02 15:58 | Pharmacy Report ---
Pharmacy PK ABX Note - Date of Service December 02, 2023 - Assessment and Plan Assessment 78 year old F receiving empiric vancomycin and meropenem for possible UTI. Presented with weakness, elevated LFTs, SOB, and chest heaviness. Reports burning with urination. Recently prescribed cephalexin for UTI. GI consulted. Will order a single dose of vancomycin following by a random level in the AM due to advanced age and CKD. Pertinent microbiologic data includes: BC x 2 pending Plan Vancomycin * Loading dose: 2000 mg IV x 1 * Random level 6/10 AM to guide further dosing Pharmacy will continue to follow and will adjust dose/frequency as necessary. Thank you. Pharmacy has transitioned to AUC monitoring for vancomycin. AUC/AYO is the preferred PK/PD target and is associated with decreased risk of nephrotoxicity compared to traditional trough targets.
[2023-12-02 17:45] LABS: ANTI-Xa, UFH(UnfractionatedHep 0.16 IU/ml (0.3-0.7)
[2023-12-02] MEDS: HEPARIN SOD (PORCINE) 1000 UNIT/ML ONE (18:00)
[2023-12-02] MEDS ORDERED: METOPROLOL TARTRATE 50 MG TAB PO SCH (21:00)
[2023-12-02] MEDS: METOPROLOL SUCC 25MG EXT REL TAB PO SCH (23:33)
[2023-12-03 01:56] LABS: ANTI-Xa, UFH(UnfractionatedHep 0.33 IU/ml (0.3-0.7)
[2023-12-03 07:52] LABS: Creatinine Clr Calc Pharmacy 54.4 ml/min; Est GFR (African American) 79.5 ml/min; Est GFR (Non-African American) 68.6 ml/min
[2023-12-03 07:53] LABS: Albumin Level 2.8 gm/dl (3.4-5.0); BUN Creatinine Ratio 27.2 (10-20); Bilirubin Direct 0.3 mg/dl (0-0.2); Bilirubin,Total 0.9 mg/dl (0.2-1.0); Calcium 7.8 mg/dl (8.6-10.3); Magnesium 1.9 mg/dl (1.7-2.4); Potassium 3.4 mmol/L (3.5-5.1); Total Protein 5.2 gm/dl (6.0-8.3)
[2023-12-03 07:54] LABS: Hematocrit (blood only) 37.4 % (37.0-47.0); Hemoglobin 12.8 g/dl (12.0-16.0); Mean Corpuscular Hemoglobin 32.2 pg (25.0-34.0); Mean Corpuscular Hgb Conc 34.2 g/dL (32.0-36.0); Mean Corpuscular Volume 94.2 fL (80.0-100.0); Mean Platelet Volume 9.6 fL (9.4-12.4); Platelet Count 150 K/uL (130-400); RDW Coefficient of Variation 12.8 % (11.5-14.5); RDW Standard Deviation 44.1 fL (36.4-46.3); Red Blood Count 3.97 M/uL (4.20-5.40); White Blood Count 4.83 K/ul (4.8-10.8)
[2023-12-03 08:01] LABS: Basophils # (auto) 0.01 K/uL (0.00-0.20); Basophils % (auto) 0.2 %; Eosinophils # (auto) 0.56 K/uL (0.00-0.50); Eosinophils % (auto) 11.6 %; Immature Granulocytes # (auto) 0.02 K/uL (0.01-0.20); Immature Granulocytes % (auto) 0.4 %; Lymphocytes # (auto) 0.43 K/uL (1.20-3.40); Lymphocytes % (auto) 8.9 %; Monocytes # (auto) 0.14 K/uL (0.11-0.59); Monocytes % (auto) 2.9 %; Neutrophils # (auto) 3.67 K/uL (1.40-6.50)
[2023-12-03 08:08] LABS: ANTI-Xa, UFH(UnfractionatedHep 0.26 IU/ml (0.3-0.7)
[2023-12-03 08:20] LABS: Estimated Average Glucose 131 mg/dl; Hemoglobin A1C 6.2 % (4.5-5.6)
--- NOTE | 2023-12-03 10:24 | Gastroenterology Progress Note ---
Date of Service December 03, 2023 Assessment & Plan (1) Elevated LFTs: Plan: Multifactorial however DDx includes DILI from recent ABx use, Tylenol overdose, Sepsis Hepatopathy, Congestive Hepatopathy. Liver panel is trending downward. Recommend the following: Complete 2 days of NAC. Await pending viral studies and autoantibody testing as ordered. Continue supportive care and follow liver panel. Admission and Anticipated Discharge Date Admission Date: December 02, 2023 Supervising Physician Co-Signing Physician Notes Agree with LEÓN Salmeron as above Interviewed and examined patient and agree with above Abd: Soft, NT, ND, +BS Continue current therapy and supportive care No plans for invasive workup at present. Subjective Patient denies any abdominal pain, pruritus, dark urine, acholic stools or melena. INR is 1.2. Liver panel is trending downward and was as follows: TB 0.9, DB 0.3, AST 190, ALT 843, and ALP 122. Hepatitis and EBV serologies are pending. Continues NAC. Review of Systems Constitutional: no problem reported Gastrointestinal: as per Subjective / HPI Physical Exam Constitutional: WD/WN, vitals as above Respiratory: normal respiratory effort, lungs clear to auscultation Cardiovascular: Rate/Rhythm: regular rate irregular rhythm Gastrointestinal (Abdomen): Inspection/Auscultation: normal bowel sounds and + significant pannus Percussion/Palpation: abdomen soft; abdomen nontender, no guarding and abdomen not rigid Results & Data Results & Data Vital Signs (Past 12 Hours) Vital Signs Pulse Pulse Resp BP BP Pulse Ox Pulse Ox 12/03/23 10:17 96 12/03/23 10:03 88 24 12/03/23 09:51 103 H 30 H 12/03/23 09:45 98 H 44 H 12/03/23 09:21 111 H 23 12/03/23 09:02 173/149 H 12/03/23 09:00 108 H 19 12/03/23 08:51 92 H 31 H 12/03/23 08:30 85 29 H 12/03/23 08:27 96 H 23 12/03/23 08:15 83 24 12/03/23 08:00 86 23 12/03/23 08:00 130/73 12/03/23 07:51 86 20 12/03/23 07:45 87 23 12/03/23 07:21 98 H 28 H 12/03/23 07:17 85 16 143/93 H 99 12/03/23 07:15 82 22 99 12/03/23 07:15 89 12/03/23 07:00 94 H 26 H 98 12/03/23 06:57 89 20 99 12/03/23 06:42 91 H 31 H 98 12/03/23 06:24 99 H 26 H 12/03/23 06:12 91 H 18 12/03/23 06:00 88 26 H 12/03/23 06:00 152/84 H 12/03/23 05:48 93 H 30 H 12/03/23 05:33 92 H 25 H 12/03/23 05:24 84 25 H 12/03/23 05:12 86 26 H 98 12/03/23 05:03 91 H 26 H 98 12/03/23 04:51 81 22 97 12/03/23 04:42 95 H 20 90 12/03/23 04:00 91 H 26 H 98 12/03/23 03:51 81 26 H 99 12/03/23 02:30 78 23 97 12/03/23 02:15 87 26 H 97 12/03/23 02:00 83 27 H 97 12/03/23 01:51 79 26 H 96 12/03/23 01:45 81 22 97 12/03/23 01:30 84 24 98 12/03/23 01:21 92 H 24 95 12/03/23 01:18 88 20 93 12/03/23 01:00 84 24 96 12/03/23 00:54 92 H 25 H 95 12/03/23 00:33 94 H 23 98 12/02/23 23:38 138/82 12/02/23 23:33 91 H 23 93 12/02/23 23:15 90 22 97 12/02/23 23:01 138/107 H 12/02/23 23:00 110 H 28 H 93 12/02/23 22:42 87 30 H 96 12/02/23 22:38 93 H 12/02/23 22:33 97 H 31 H 97 O2 Del Method O2 Del Method O2 Flow Rate O2 Flow Rate 12/03/23 10:17 Nasal Cannula 2 12/03/23 10:03 12/03/23 09:51 12/03/23 09:45 12/03/23 09:21 12/03/23 09:02 12/03/23 09:00 12/03/23 08:51 12/03/23 08:30 12/03/23 08:27 12/03/23 08:15 12/03/23 08:00 12/03/23 08:00 12/03/23 07:51 12/03/23 07:45 12/03/23 07:21 12/03/23 07:17 Nasal Cannula 2 12/03/23 07:15 2 12/03/23 07:15 12/03/23 07:00 2 12/03/23 06:57 2 12/03/23 06:42 12/03/23 06:24 12/03/23 06:12 12/03/23 06:00 12/03/23 06:00 12/03/23 05:48 12/03/23 05:33 12/03/23 05:24 12/03/23 05:12 12/03/23 05:03 12/03/23 04:51 12/03/23 04:42 12/03/23 04:00 12/03/23 03:51 12/03/23 02:30 12/03/23 02:15 12/03/23 02:00 12/03/23 01:51 12/03/23 01:45 12/03/23 01:30 12/03/23 01:21 12/03/23 01:18 12/03/23 01:00 12/03/23 00:54 12/03/23 00:33 12/02/23 23:38 12/02/23 23:33 12/02/23 23:15 12/02/23 23:01 12/02/23 23:00 12/02/23 22:42 12/02/23 22:38 12/02/23 22:33 PG Care Time/CCT Total # of Minutes Spent Total Time Spent with Patient: Total time spent is greater than 50% in coordination of care (as documented) at patient's floor/unit and/or counseling patient: Coding Level of Care Code 22339 SUB INP/OBS CARE 3/50MIN Diagnoses Elevated LFTs R79.89
[2023-12-03] MEDS: VANCOMYCIN HCL 750 MG in SODIUM CHLORIDE 0.9% 250 ML IV SCH (12:01)
--- NOTE | 2023-12-03 15:39 | Pharmacy Report ---
Pharmacy PK ABX Note - Date of Service December 03, 2023 - Assessment and Plan Assessment 78 year old F receiving empiric vancomycin and meropenem for possible UTI. Presented with weakness, elevated LFTs, SOB, and chest heaviness. Reports burning with urination. Recently prescribed cephalexin for UTI. GI consulted. Will order a single dose of vancomycin following by a random level in the AM due to advanced age and CKD. Pertinent microbiologic data includes: BCX x 2 pending 12/02: * Bcx negative to date. No history of ESBL/MRSA evident. * No urine Culture available as reflex off of UA did not occur due to lack of bacteria isolated (suggestive that cephalexin prior to arrival was likely effective) * Antibiotics can likely be de-escalated. Discussed with the provider * Consider stopping vancomycin * Consider de-escalating from a carbapenem Plan Vancomycin * 2000mg X1 administered yesterday. * Random level obtained 12/03/23 resulted as 7.8 mcg/mL. * Initiate 750 mg IV every 12 hours. Predicted AUC at steady state: 498 mg/L.hr * Will repeat level in the next 48-72 hours if therapy is continued and/or change in patient clinical status Pharmacy will continue to follow and will adjust dose/frequency as necessary. Thank you. Pharmacy has transitioned to AUC monitoring for vancomycin. AUC/AYO is the preferred PK/PD target and is associated with decreased risk of nephrotoxicity compared to traditional trough targets.
--- NOTE | 2023-12-03 16:12 | Hospitalist Progress Note ---
Date of Service December 03, 2023 Assessment & Plan (1) Elevated LFTs: Plan: 78-year-old female with past medical history significant for Type 2 diabetes, hypothyroidism, hyperlipidemia, moderate persistent asthma, multiple pulmonary nodules, paroxysmal atrial fibrillation, chronic diastolic CHF, hypertension, asymptomatic bilateral carotid artery stenosis, vitamin B12 deficiency, GERD, obesity, slow transit constipation, CKD stage III, osteoarthritis, chronic chest pains, statin intolerance, lumbar spinal stenosis, generalized anxiety, depression, history of COVID, physical deconditioning, who lives at home with her daughter was brought in because of weakness and shortness of breath and some chest heaviness.Since last Sunday patient had some burning micturition. And last Sunday she was started on Keflex. Last Sunday patient was confused and hallucinating. As per daughter the confusion slowly improved. But still has some mild burning micturition. But she was getting progressively weak. Poor appetite. Before she is to ambulate fine but now she needs assistance. And today she complained of some chest tightness and shortness of breath and was brought into the hospital. In the ER initially she was in rapid A-fib. Seemed dry. In the ER received fluid bolus. And tachycardia improved. She was also given empiric cefepime. Urinalysis came back positive. But bilirubin is elevated and AST ALT are highly elevated. Patient takes Tylenol 2000 to 3000 g daily for headaches. Last Tylenol was last Sunday. She did not move bowels for last few days. Her urine is very dark and has low urine output. Currently patient is alert and oriented x 3. Has some headache. No blurred visions. No runny nose or sore throat. Currently no cough. Currently chest pain improved. Currently no shortness of breath. Currently no nausea. No abdominal pain. Hemodynamics are okay currently. Daughters are in the room who helped with h and p. Elevated LFTs CT abd.pelvis - 1. No acute infectious or inflammatory findings are identified in the abdomen or pelvis. 2. The liver is normal in size and attenuation. 3. Bibasilar pulmonary nodules are pathologically indeterminate and unchanged from prior studies. Tylenol level unremarkable Acute hepatitis panel ordered, also will obtain EBV and autoimmune liver panel GI consulted - recommend NAC- started LFTs trending down close monitor Rapid a fib hx of lone afib seems during infection and not on anticoagulation came with rapid a fib, currently improved placed on iv heparin continue home metoprolol Echo obtained -LV systolic function is normal. RV is normal in size and function. No significant valvular abnormality. Normal inferior vena cava size and collapsibility with sniff indicates an normal right atrial pressure of 3 mmHg. troponins 20-40s - likely secondary to afib Cardiology consulted closely monitor. UTI possible sepsis elevated procalcitonin, lactic acid ok placed empirically on meropenem and vanco until cultures available on iv fluids hx of chronic diastolic chf not on diuretics getting fluids monitor for volume overload. HTN holding irbesartan and hctz metoprolol with holding parameters Norman on ckd stage 3 baseline cr 1.0 Cr 1.3 on admission -> 0.8 getting fluids holding irbesartan and hctz will follow labs Hyperlipidemia on zetia holding statin for elevated lft GAURAV non compliant with cpap Hx of moderate persistent asthma continue home inhalers anxiety/depression on alprazolam and zoloft Diabetes ISS will monitor. Hypothyroidism on synthypid TSH 1.38 hypokalemia replace and monitor hypocalcemia ca 8.0 will start on supplements check vitamin d levels. DVT px - on iv heparin Disposition - Tele Full code Admission and Anticipated Discharge Date Admission Date: December 02, 2023 Subjective Pt seen in follow up of elevated LFTs, Afib, poss. sepsis Currently laying in bed in NAD, already feeling much better than yesterday LFTs trending down Pt denies any chest pain, shortness of breath, denies abd. pain, says she feels hungry. Has some sore throat. Review of Systems Review of Systems: All systems reviewed & are unremarkable except as noted in Subjective Physical Exam Physical Exam: General- obese, elderly F in NAD Head- atraumatic Eyes- PERRL,EOMI ENT- oropharynx clear Neck- supple, no JVD. Lungs- clear to auscultation no wheezing or crackles. Heart- irregular rhythm; no murmur Abdomen- normal bowel sounds, soft, nontender, no distension Extremities- trace pretibial edema present, no erythema seen. Neuro- alert, oriented x 3; PERRL, no facial palsy; no dysarthria; moves extremities. Skin- warm & dry Results & Data Results & Data Vital Signs (Past 12 Hours) Vital Signs Temp Pulse Pulse Resp BP BP Pulse Ox 12/03/23 12:07 79 18 160/101 H 95 12/03/23 11:41 36.6 C 88 16 96 12/03/23 11:39 12/03/23 10:22 69 16 150/118 H 96 12/03/23 10:17 12/03/23 10:03 88 24 12/03/23 09:51 103 H 30 H 12/03/23 09:45 98 H 44 H 12/03/23 09:21 111 H 23 12/03/23 09:02 173/149 H 12/03/23 09:00 108 H 19 12/03/23 08:51 92 H 31 H 12/03/23 08:30 85 29 H 12/03/23 08:27 96 H 23 12/03/23 08:15 83 24 12/03/23 08:00 86 23 12/03/23 08:00 130/73 12/03/23 07:51 86 20 12/03/23 07:45 87 23 12/03/23 07:21 98 H 28 H 12/03/23 07:17 85 16 143/93 H 99 12/03/23 07:15 82 22 99 12/03/23 07:15 89 12/03/23 07:00 94 H 26 H 98 12/03/23 06:57 89 20 99 12/03/23 06:42 91 H 31 H 98 12/03/23 06:24 99 H 26 H 12/03/23 06:12 91 H 18 12/03/23 06:00 88 26 H 12/03/23 06:00 152/84 H 12/03/23 05:48 93 H 30 H 12/03/23 05:33 92 H 25 H 12/03/23 05:24 84 25 H 12/03/23 05:12 86 26 H 98 12/03/23 05:03 91 H 26 H 98 12/03/23 04:51 81 22 97 12/03/23 04:42 95 H 20 90 Pulse Ox O2 Del Method O2 Del Method O2 Flow Rate O2 Flow Rate FiO2 12/03/23 12:07 Room Air 12/03/23 11:41 Nasal Cannula 2 12/03/23 11:39 Nasal Cannula 2 12/03/23 10:22 Nasal Cannula 2 12/03/23 10:17 96 Nasal Cannula 2 12/03/23 10:03 12/03/23 09:51 12/03/23 09:45 12/03/23 09:21 12/03/23 09:02 12/03/23 09:00 12/03/23 08:51 12/03/23 08:30 12/03/23 08:27 12/03/23 08:15 12/03/23 08:00 12/03/23 08:00 12/03/23 07:51 12/03/23 07:45 12/03/23 07:21 12/03/23 07:17 Nasal Cannula 2 12/03/23 07:15 2 12/03/23 07:15 12/03/23 07:00 2 12/03/23 06:57 2 12/03/23 06:42 12/03/23 06:24 12/03/23 06:12 12/03/23 06:00 12/03/23 06:00 12/03/23 05:48 12/03/23 05:33 12/03/23 05:24 12/03/23 05:12 12/03/23 05:03 12/03/23 04:51 12/03/23 04:42 Laboratory Results 12/03/23 12/03/23 12/03/23 Range/Units 12:10 08:33 07:17 WBC 4.83 (4.8-10.8) K/ul RBC 3.97 L (4.20-5.40) M/uL Hgb 12.8 (12.0-16.0) g/dl Hct 37.4 (37.0-47.0) % MCV 94.2 (80.0-100.0) fL MCH 32.2 (25.0-34.0) pg MCHC 34.2 (32.0-36.0) g/dL RDW Std Deviation 44.1 (36.4-46.3) fL RDW Coeff of Anne 12.8 (11.5-14.5) % Plt Count 150 (130-400) K/uL MPV 9.6 (9.4-12.4) fL Immature Gran % (Auto) 0.4 % Neut % (Auto) 76.0 % Lymph % (Auto) 8.9 % [place] % (Auto) 2.9 % Eos % (Auto) 11.6 % Baso % (Auto) 0.2 % Neut # (Auto) 3.67 (1.40-6.50) K/uL Lymph # (Auto) 0.43 L (1.20-3.40) K/uL [place] # (Auto) 0.14 (0.11-0.59) K/uL Eos # (Auto) 0.56 H (0.00-0.50) K/uL Baso # (Auto) 0.01 (0.00-0.20) K/uL Immature Gran # (Auto) 0.02 (0.01-0.20) K/uL Heparin Anti-Xa, Unfract 0.26 L (0.3-0.7) IU/ml Sodium 139 (136-145) mmol/L Potassium 3.4 L (3.5-5.1) mmol/L Chloride 112 H (98-107) mmol/L Carbon Dioxide 21 (21-32) mmol/L Anion Gap 6 (3-11) BUN 22 (6-23) mg/dl Creatinine 0.81 D (0.6-1.2) mg/dl Est Cr Clr Drug Dosing 54.4 ml/min Est GFR ( Amer) 79.5 ml/min Est GFR (Non-Af Amer) 68.6 ml/min BUN/Creatinine Ratio 27.2 H (10-20) Glucose 154 H (70-99(Fasting)) mg/dl POC Glucose 171 H 149 H (70-99) mg/dl Estimat Average Glucose 131 mg/dl Hemoglobin A1c 6.2 H (4.5-5.6) % Calcium 7.8 L (8.6-10.3) mg/dl Magnesium 1.9 (1.7-2.4) mg/dl Total Bilirubin 0.9 D (0.2-1.0) mg/dl Direct Bilirubin 0.3 H (0-0.2) mg/dl AST 190 H (13-39) U/L ALT 843 H (7-52) U/L Alkaline Phosphatase 122 H (34-104) U/L Troponin I High Sens (0-14) pg/ml Total Protein 5.2 L (6.0-8.3) gm/dl Albumin 2.8 L (3.4-5.0) gm/dl 25-OH Vitamin D Total < 7.0 L (30-100) ng/ml Random Vancomycin 7.8 L (10-20) mcg/ml 12/03/23 12/02/23 12/02/23 Range/Units 00:17 23:40 17:07 WBC (4.8-10.8) K/ul RBC (4.20-5.40) M/uL Hgb (12.0-16.0) g/dl Hct (37.0-47.0) % MCV (80.0-100.0) fL MCH (25.0-34.0) pg MCHC (32.0-36.0) g/dL RDW Std Deviation (36.4-46.3) fL RDW Coeff of Anne (11.5-14.5) % Plt Count (130-400) K/uL MPV (9.4-12.4) fL Immature Gran % (Auto) % Neut % (Auto) % Lymph % (Auto) % [place] % (Auto) % Eos % (Auto) % Baso % (Auto) % Neut # (Auto) (1.40-6.50) K/uL Lymph # (Auto) (1.20-3.40) K/uL [place] # (Auto) (0.11-0.59) K/uL Eos # (Auto) (0.00-0.50) K/uL Baso # (Auto) (0.00-0.20) K/uL Immature Gran # (Auto) (0.01-0.20) K/uL Heparin Anti-Xa, Unfract 0.33 0.16 L (0.3-0.7) IU/ml Sodium (136-145) mmol/L Potassium (3.5-5.1) mmol/L Chloride (98-107) mmol/L Carbon Dioxide (21-32) mmol/L Anion Gap (3-11) BUN (6-23) mg/dl Creatinine (0.6-1.2) mg/dl Est Cr Clr Drug Dosing ml/min Est GFR ( Amer) ml/min Est GFR (Non-Af Amer) ml/min BUN/Creatinine Ratio (10-20) Glucose (70-99(Fasting)) mg/dl POC Glucose 106 H (70-99) mg/dl Estimat Average Glucose mg/dl Hemoglobin A1c (4.5-5.6) % Calcium (8.6-10.3) mg/dl Magnesium (1.7-2.4) mg/dl Total Bilirubin (0.2-1.0) mg/dl Direct Bilirubin (0-0.2) mg/dl AST (13-39) U/L ALT (7-52) U/L Alkaline Phosphatase (34-104) U/L Troponin I High Sens (0-14) pg/ml Total Protein (6.0-8.3) gm/dl Albumin (3.4-5.0) gm/dl 25-OH Vitamin D Total (30-100) ng/ml Random Vancomycin (10-20) mcg/ml 12/02/23 12/02/23 Range/Units 16:47 16:31 WBC (4.8-10.8) K/ul RBC (4.20-5.40) M/uL Hgb (12.0-16.0) g/dl Hct (37.0-47.0) % MCV (80.0-100.0) fL MCH (25.0-34.0) pg MCHC (32.0-36.0) g/dL RDW Std Deviation (36.4-46.3) fL RDW Coeff of Anne (11.5-14.5) % Plt Count (130-400) K/uL MPV (9.4-12.4) fL Immature Gran % (Auto) % Neut % (Auto) % Lymph % (Auto) % [place] % (Auto) % Eos % (Auto) % Baso % (Auto) % Neut # (Auto) (1.40-6.50) K/uL Lymph # (Auto) (1.20-3.40) K/uL [place] # (Auto) (0.11-0.59) K/uL Eos # (Auto) (0.00-0.50) K/uL Baso # (Auto) (0.00-0.20) K/uL Immature Gran # (Auto) (0.01-0.20) K/uL Heparin Anti-Xa, Unfract (0.3-0.7) IU/ml Sodium (136-145) mmol/L Potassium (3.5-5.1) mmol/L Chloride (98-107) mmol/L Carbon Dioxide (21-32) mmol/L Anion Gap (3-11) BUN (6-23) mg/dl Creatinine (0.6-1.2) mg/dl Est Cr Clr Drug Dosing ml/min Est GFR ( Amer) ml/min Est GFR (Non-Af Amer) ml/min BUN/Creatinine Ratio (10-20) Glucose (70-99(Fasting)) mg/dl POC Glucose 168 H (70-99) mg/dl Estimat Average Glucose mg/dl Hemoglobin A1c (4.5-5.6) % Calcium (8.6-10.3) mg/dl Magnesium (1.7-2.4) mg/dl Total Bilirubin (0.2-1.0) mg/dl Direct Bilirubin (0-0.2) mg/dl AST (13-39) U/L ALT (7-52) U/L Alkaline Phosphatase (34-104) U/L Troponin I High Sens 45.5 H (0-14) pg/ml Total Protein (6.0-8.3) gm/dl Albumin (3.4-5.0) gm/dl 25-OH Vitamin D Total (30-100) ng/ml Random Vancomycin (10-20) mcg/ml Medications Administered Current Inpatient Medications Albuterol (Albuterol Hfa 8 Gm Inhaler) 2 puffs INH Q6H PRN PRN Reason: Shortness Of Breath Or Wheezing Stop: 01/01/24 07:39 Alprazolam (Alprazolam 0.5 Mg Tablet) 0.5 mg PO BID KATHRYN Stop: 01/01/24 08:59 Last Admin: 12/03/23 08:49 Dose: 0.5 mg Aspirin (Aspirin 81 Mg Ectab) 81 mg PO DAILY KATHRYN Stop: 01/01/24 08:59 Last Admin: 12/03/23 08:50 Dose: 81 mg Calcium/Vitamin D (Calcium 600mg + Vit D 400 Iu Tab) 1 tab PO BID [facility] Stop: 01/01/24 08:59 Last Admin: 12/03/23 08:50 Dose: 1 tab Dextrose (Dextrose 50% 50 Ml Syringe) 25 - 50 ml IV UD PRN; Protocol PRN Reason: Hypoglycemia Protocol Stop: 01/01/24 08:03 Docusate Sodium (Docusate Sodium 100 Mg Cap) 200 mg PO HS PRN PRN Reason: Constipation Stop: 01/01/24 07:39 Ezetimibe (Ezetimibe 10 Mg Tab) 10 mg PO DAILY [facility] [place] Stop: 01/01/24 08:59 Last Admin: 12/03/23 08:50 Dose: 10 mg Fluticasone Furoate (Fluticasone Furoate 200mcg 14 Puffs/Inhaler) 1 puffs INH DAILY KATHRYN Stop: 01/01/24 08:59 Last Admin: 12/03/23 08:48 Dose: 1 puffs Fluticasone Propionate (Fluticasone Propionate Na Spr 16 Gm Btl) 2 sprays NA DAILY KATHRYN Stop: 01/01/24 08:59 Last Admin: 12/03/23 08:49 Dose: 2 sprays Glucagon (Glucagon For Inj 1 Mg Vial) 1 mg SQ UD PRN; Protocol PRN Reason: Hypoglycemia Protocol Stop: 01/01/24 08:03 Glucose (Glucose 40% Gel 15 Gm Tube) 15 - 30 gm PO UD PRN; Protocol PRN Reason: Hypoglycemia Protocol Stop: 01/01/24 08:03 Glucose (Glucose 10 Tab/Tube) 4 - 8 tab PO UD PRN; Protocol PRN Reason: Hypoglycemia Treatment Stop: 01/01/24 08:03 Sodium Chloride (Nss) 1,000 mls @ 100 mls/hr IV .Q10H [facility] Stop: 01/01/24 07:39 Last Infusion: 12/03/23 14:17 Dose: Infused Meropenem 500 mg/ Syringe 10 mls @ 2 mls/min IV BID KATHRYN; Protocol Stop: 12/12/23 08:59 Last Admin: 12/03/23 08:47 Dose: 2 mls/min Heparin Sodium/Dextrose (Heparin Sodium/Dextrose) 25,000 units in 500 mls @ 18 mls/hr IV .Q24H [facility] [place]; Protocol Stop: 01/01/24 07:39 Last Admin: 12/03/23 08:46 Dose: 900 units/hr, 18 mls/hr Vancomycin HCl 750 mg/ Sodium (Chloride) 265 mls @ 200 mls/hr IV Q12H [facility] [place] Stop: 12/13/23 10:59 Last Infusion: 12/03/23 14:18 Dose: Infused Insulin Aspart (Insulin Aspart Per Unit Charge) 0 units SC ACHS [facility] [place] Stop: 01/01/24 11:29 Last Admin: 12/03/23 13:12 Dose: 1 units Levothyroxine Sodium (Levothyroxine Sodium 150 Mcg Tablet) 150 mcg PO DAILYBB [facility] [place] Stop: 01/01/24 07:59 Last Admin: 12/03/23 05:39 Dose: 150 mcg Loratadine (Loratadine 10 Mg Tab) 10 mg PO DAILY [facility] [place] Stop: 01/01/24 08:59 Last Admin: 12/03/23 08:50 Dose: 10 mg Losartan Potassium (Losartan Potassium 50 Mg Tab) 50 mg PO QAM [facility] [place]; Protocol Stop: 01/02/24 15:44 Metoprolol Succinate (Metoprolol Succ 25mg Ext Rel Tab) 75 mg PO BID [facility] [place] Stop: 01/01/24 20:59 Last Admin: 12/03/23 08:51 Dose: 75 mg Miscellaneous (Loteprednol Etabonate 0.5 %: Order Awaiting Action) 1 each N/A QS [facility] [place] Stop: 01/01/24 15:59 Last Admin: 12/03/23 08:53 Dose: Not Given Miscellaneous (Olopatadine 0.1 % Drops: Order Awaiting Action) 1 each N/A QS [facility] [place] Stop: 01/01/24 15:59 Last Admin: 12/03/23 08:53 Dose: Not Given Miscellaneous (Carbohydrates For Hypoglycemia ) 15 - 30 gm PO UD PRN PRN Reason: Hypoglycemia Protocol Stop: 01/01/24 08:03 Miscellaneous Information (Vancomycin Consult Active) 1 each N/A UD PRN PRN Reason: Consult Stop: 01/01/24 07:39 Nitroglycerin (Nitroglycerin Sl 0.4 Mg/Tab Tab) 0.4 mg SL Q5M PRN PRN Reason: Chest Pain Stop: 01/01/24 07:39 Pantoprazole Sodium (Pantoprazole 40 Mg Tab) 40 mg PO BID [facility] [place] Stop: 01/01/24 08:59 Last Admin: 12/03/23 08:51 Dose: 40 mg Polyethylene Glycol (Polyethylene (Miralax) 17 Gm Pack) 17 gm PO HS PRN PRN Reason: Constipation Stop: 01/01/24 07:39 Sertraline HCl (Sertraline Hcl 100 Mg Tablet) 100 mg PO DAILY [facility] [place] Stop: 01/01/24 08:59 Last Admin: 12/03/23 08:50 Dose: 100 mg Umeclidinium/Vilanterol (Umeclidinium/Vilanterol 62.5/25mcg 7 Puffs/Inhaler) 1 puffs INH DAILY KATHRYN Stop: 01/01/24 08:59 Last Admin: 12/03/23 08:48 Dose: 1 puffs
[2023-12-03 17:00] LABS: ANTI-Xa, UFH(UnfractionatedHep 0.18 IU/ml (0.3-0.7)
[2023-12-03] MEDS: POTASSIUM CHLORIDE CRTAB 20 MEQ TABCR PO STA ×2 (17:08)
[2023-12-03] MEDS: LOSARTAN POTASSIUM 50 MG TAB PO SCH (18:44)
[2023-12-03 20:35] LABS: ANTI-Xa, UFH(UnfractionatedHep 0.22 IU/ml (0.3-0.7)
[2023-12-04] MEDS ORDERED: Nursing to Pharmacy Communication SCH (01:30)
[2023-12-04 02:47] LABS: Hematocrit (blood only) 36.7 % (37.0-47.0); Hemoglobin 12.5 g/dl (12.0-16.0); Mean Corpuscular Hemoglobin 32.2 pg (25.0-34.0); Mean Corpuscular Hgb Conc 34.1 g/dL (32.0-36.0); Mean Corpuscular Volume 94.6 fL (80.0-100.0); Mean Platelet Volume 9.4 fL (9.4-12.4); Platelet Count 148 K/uL (130-400); RDW Coefficient of Variation 12.9 % (11.5-14.5); RDW Standard Deviation 44.4 fL (36.4-46.3); Red Blood Count 3.88 M/uL (4.20-5.40); White Blood Count 5.25 K/ul (4.8-10.8)
[2023-12-04 02:59] LABS: BUN Creatinine Ratio 20.3 (10-20); Calcium 7.8 mg/dl (8.6-10.3); Creatinine Clr Calc Pharmacy 59.5 ml/min; Est GFR (African American) 88.7 ml/min; Est GFR (Non-African American) 76.5 ml/min; Potassium 3.8 mmol/L (3.5-5.1)
[2023-12-04 03:04] LABS: ANTI-Xa, UFH(UnfractionatedHep 0.25 IU/ml (0.3-0.7)
[2023-12-04] MEDS: MELATONIN 3 MG TAB PO PRN (03:18)
[2023-12-04 03:31] LABS: Albumin Globulin Ratio 1.2 (0.9-2); Albumin Level 2.8 gm/dl (3.4-5.0); Globulin 2.3 gm/dl (2.5-4.0); Magnesium 1.7 mg/dl (1.7-2.4); Phosphorus 2.5 mg/dl (2.5-4.9); Total Protein 5.1 gm/dl (6.0-8.3)
--- NOTE | 2023-12-04 15:47 | Hospitalist Progress Note ---
Date of Service December 04, 2023 Assessment & Plan (1) Elevated LFTs: Plan: 78 yo F with Type 2 diabetes, hypothyroidism, hyperlipidemia, moderate persistent asthma, multiple pulmonary nodules, paroxysmal atrial fibrillation, chronic diastolic CHF, hypertension, asymptomatic bilateral carotid artery stenosis, vitamin B12 deficiency, GERD, obesity, slow transit constipation, CKD stage III, osteoarthritis, chronic chest pains, statin intolerance, lumbar spinal stenosis, generalized anxiety, depression, history of COVID, physical deconditioning, who lives at home with her daughter was brought in because of weakness and shortness of breath and some chest heaviness. Since last Sunday patient had some burning micturition. And last Sunday she was started on Keflex. Last Sunday patient was confused and hallucinating. As per daughter the confusion slowly improved. But still has some mild burning micturition. But she was getting progressively weak. Poor appetite. Before she is to ambulate fine but now she needs assistance. And today she complained of some chest tightness and shortness of breath and was brought into the hospital. In the ER initially she was in rapid A-fib. Seemed dry. In the ER received fluid bolus. And tachycardia improved. She was also given empiric cefepime. Urinalysis came back positive. But bilirubin is elevated and AST ALT are highly elevated. Patient takes Tylenol 2000 to 3000 g daily for headaches. Last Tylenol was last Sunday. She did not move bowels for last few days. Her urine is very dark and has low urine output. Currently patient is alert and oriented x 3. Has some headache. No blurred visions. No runny nose or sore throat. Currently no cough. Currently chest pain improved. Currently no shortness of breath. Currently no nausea. No abdominal pain. Hemodynamics are okay currently. Daughters are in the room who helped with h and p. Elevated LFTs CT abd.pelvis - 1. No acute infectious or inflammatory findings are identified in the abdomen or pelvis. 2. The liver is normal in size and attenuation. 3. Bibasilar pulmonary nodules are pathologically indeterminate and unchanged from prior studies. Tylenol level unremarkable Acute hepatitis panel ordered, also will obtain EBV and autoimmune liver panel GI consulted - recommend NAC- started LFTs trending down close monitor Rapid a fib hx of lone afib seems during infection and not on anticoagulation came with rapid a fib, currently improved placed on iv heparin continue home metoprolol Echo obtained -LV systolic function is normal. RV is normal in size and function. No significant valvular abnormality. Normal inferior vena cava size and collapsibility with sniff indicates an normal right atrial pressure of 3 mmHg. troponins 20-40s - likely secondary to afib Cardiology consulted- metoprolol, plan to transition to eliquis on DC closely monitor. UTI possible sepsis treated for UTI w/ keflex as outpt still w/ dysuria elevated procalcitonin, lactic acid ok placed empirically on meropenem and vanco on admission Blood cultx - pending UA c/w UTI but no urine cultx - will repeat Ucultx - for now will switch to zosyn on iv fluids hx of chronic diastolic chf not on diuretics getting fluids monitor for volume overload. HTN holding irbesartan and hctz metoprolol with holding parameters start losartan for now Norman on ckd stage 3 baseline cr 1.0 Cr 1.3 on admission -> 0.7 received fluids holding irbesartan and hctz, started losartan for now will follow labs Hyperlipidemia on zetia holding statin for elevated lft GAURAV non compliant with cpap Hx of moderate persistent asthma continue home inhalers anxiety/depression on alprazolam and zoloft Diabetes ISS will monitor. Hypothyroidism on synthypid TSH 1.38 hypokalemia replace and monitor hypocalcemia ca 8.0 start on supplements check vitamin d levels. DVT px - on iv heparin Disposition - Tele Full code Admission and Anticipated Discharge Date Admission Date: December 02, 2023 Subjective Pt seen in follow up of elevated LFTs, Afib, poss. sepsis Currently laying in bed in NAD, but more sleepy today. daughter present at the bedside. LFTs trending down Pt denies any chest pain, shortness of breath, has some mild RLQ pain. Has some sore throat. Wants her diet advanced. Review of Systems Review of Systems: All systems reviewed & are unremarkable except as noted in Subjective Physical Exam Physical Exam: General- obese, elderly F in NAD Head- atraumatic Eyes- PERRL,EOMI ENT- oropharynx clear Neck- supple, no JVD. Lungs- clear to auscultation no wheezing or crackles. Heart- irregular rhythm; no murmur Abdomen- normal bowel sounds, soft, mildly tender at RLQ, no distension Extremities- trace pretibial edema present, no erythema seen. Neuro- alert, oriented x 3; PERRL, no facial palsy; no dysarthria; moves extremities. Skin- warm & dry Results & Data Results & Data Vital Signs (Past 12 Hours) Vital Signs Temp Pulse Pulse Resp BP Pulse Ox O2 Del Method 12/04/23 12:03 Room Air 12/04/23 11:53 36.3 C L 92 H 18 180/83 H 96 Room Air 12/04/23 07:41 36.8 C 88 18 115/67 95 Room Air 12/04/23 05:56 84 Laboratory Results 12/04/23 12/04/23 12/04/23 Range/Units 12:18 09:48 09:40 WBC (4.8-10.8) K/ul RBC (4.20-5.40) M/uL Hgb (12.0-16.0) g/dl Hct (37.0-47.0) % MCV (80.0-100.0) fL MCH (25.0-34.0) pg MCHC (32.0-36.0) g/dL RDW Std Deviation (36.4-46.3) fL RDW Coeff of Anne (11.5-14.5) % Plt Count (130-400) K/uL MPV (9.4-12.4) fL Heparin Anti-Xa, Unfract 0.20 L (0.3-0.7) IU/ml Sodium (136-145) mmol/L Potassium (3.5-5.1) mmol/L Chloride (98-107) mmol/L Carbon Dioxide (21-32) mmol/L Anion Gap (3-11) BUN (6-23) mg/dl Creatinine (0.6-1.2) mg/dl Est Cr Clr Drug Dosing ml/min Est GFR ( Amer) ml/min Est GFR (Non-Af Amer) ml/min BUN/Creatinine Ratio (10-20) Glucose (70-99(Fasting)) mg/dl POC Glucose 189 H (70-99) mg/dl Calcium (8.6-10.3) mg/dl Phosphorus (2.5-4.9) mg/dl Magnesium (1.7-2.4) mg/dl Total Bilirubin (0.2-1.0) mg/dl AST (13-39) U/L ALT (7-52) U/L Alkaline Phosphatase (34-104) U/L Total Protein (6.0-8.3) gm/dl Albumin (3.4-5.0) gm/dl Globulin (2.5-4.0) gm/dl Albumin/Globulin Ratio (0.9-2) Nasal Screen MRSA (PCR) Negative (Negative) CHENCHO Screen Anti-Mitochondrial Ab Anti-Smooth Muscle Ab 12/04/23 12/04/23 12/03/23 Range/Units 08:04 02:29 20:01 WBC 5.25 (4.8-10.8) K/ul RBC 3.88 L (4.20-5.40) M/uL Hgb 12.5 (12.0-16.0) g/dl Hct 36.7 L (37.0-47.0) % MCV 94.6 (80.0-100.0) fL MCH 32.2 (25.0-34.0) pg MCHC 34.1 (32.0-36.0) g/dL RDW Std Deviation 44.4 (36.4-46.3) fL RDW Coeff of Anne 12.9 (11.5-14.5) % Plt Count 148 (130-400) K/uL MPV 9.4 (9.4-12.4) fL Heparin Anti-Xa, Unfract 0.25 L (0.3-0.7) IU/ml Sodium 139 (136-145) mmol/L Potassium 3.8 (3.5-5.1) mmol/L Chloride 112 H (98-107) mmol/L Carbon Dioxide 22 (21-32) mmol/L Anion Gap 5 (3-11) BUN 15 (6-23) mg/dl Creatinine 0.74 (0.6-1.2) mg/dl Est Cr Clr Drug Dosing 59.5 ml/min Est GFR ( Amer) 88.7 ml/min Est GFR (Non-Af Amer) 76.5 ml/min BUN/Creatinine Ratio 20.3 H (10-20) Glucose 112 H (70-99(Fasting)) mg/dl POC Glucose 127 H 104 H (70-99) mg/dl Calcium 7.8 L (8.6-10.3) mg/dl Phosphorus 2.5 (2.5-4.9) mg/dl Magnesium 1.7 (1.7-2.4) mg/dl Total Bilirubin 1.0 (0.2-1.0) mg/dl AST 76 H (13-39) U/L ALT 641 H (7-52) U/L Alkaline Phosphatase 134 H (34-104) U/L Total Protein 5.1 L (6.0-8.3) gm/dl Albumin 2.8 L (3.4-5.0) gm/dl Globulin 2.3 L (2.5-4.0) gm/dl Albumin/Globulin Ratio 1.2 (0.9-2) Nasal Screen MRSA (PCR) (Negative) CHENCHO Screen Anti-Mitochondrial Ab Anti-Smooth Muscle Ab 12/03/23 12/03/23 Range/Units 19:43 16:21 WBC (4.8-10.8) K/ul RBC (4.20-5.40) M/uL Hgb (12.0-16.0) g/dl Hct (37.0-47.0) % MCV (80.0-100.0) fL MCH (25.0-34.0) pg MCHC (32.0-36.0) g/dL RDW Std Deviation (36.4-46.3) fL RDW Coeff of Anne (11.5-14.5) % Plt Count (130-400) K/uL MPV (9.4-12.4) fL Heparin Anti-Xa, Unfract 0.22 L 0.18 L (0.3-0.7) IU/ml Sodium (136-145) mmol/L Potassium (3.5-5.1) mmol/L Chloride (98-107) mmol/L Carbon Dioxide (21-32) mmol/L Anion Gap (3-11) BUN (6-23) mg/dl Creatinine (0.6-1.2) mg/dl Est Cr Clr Drug Dosing ml/min Est GFR ( Amer) ml/min Est GFR (Non-Af Amer) ml/min BUN/Creatinine Ratio (10-20) Glucose (70-99(Fasting)) mg/dl POC Glucose (70-99) mg/dl Calcium (8.6-10.3) mg/dl Phosphorus (2.5-4.9) mg/dl Magnesium (1.7-2.4) mg/dl Total Bilirubin (0.2-1.0) mg/dl AST (13-39) U/L ALT (7-52) U/L Alkaline Phosphatase (34-104) U/L Total Protein (6.0-8.3) gm/dl Albumin (3.4-5.0) gm/dl Globulin (2.5-4.0) gm/dl Albumin/Globulin Ratio (0.9-2) Nasal Screen MRSA (PCR) (Negative) CHENCHO Screen Pending Anti-Mitochondrial Ab Pending Anti-Smooth Muscle Ab Pending Medications Administered Current Inpatient Medications Albuterol (Albuterol Hfa 8 Gm Inhaler) 2 puffs INH Q6H PRN PRN Reason: Shortness Of Breath Or Wheezing Stop: 01/01/24 07:39 Alprazolam (Alprazolam 0.5 Mg Tablet) 0.5 mg PO BID KATHRYN Stop: 01/01/24 08:59 Last Admin: 12/04/23 09:59 Dose: 0.5 mg Aspirin (Aspirin 81 Mg Ectab) 81 mg PO DAILY KATHRYN Stop: 01/01/24 08:59 Last Admin: 12/04/23 09:58 Dose: 81 mg Calcium/Vitamin D (Calcium 600mg + Vit D 400 Iu Tab) 1 tab PO BID KATHRYN Stop: 01/01/24 08:59 Last Admin: 12/04/23 09:57 Dose: 1 tab Dextrose (Dextrose 50% 50 Ml Syringe) 25 - 50 ml IV UD PRN; Protocol PRN Reason: Hypoglycemia Protocol Stop: 01/01/24 08:03 Docusate Sodium (Docusate Sodium 100 Mg Cap) 200 mg PO HS PRN PRN Reason: Constipation Stop: 01/01/24 07:39 Ezetimibe (Ezetimibe 10 Mg Tab) 10 mg PO DAILY KATHRYN Stop: 01/01/24 08:59 Last Admin: 12/04/23 09:57 Dose: 10 mg Fluticasone Furoate (Fluticasone Furoate 200mcg 14 Puffs/Inhaler) 1 puffs INH DAILY KATHRYN Stop: 01/01/24 08:59 Last Admin: 12/04/23 10:04 Dose: 1 puffs Fluticasone Propionate (Fluticasone Propionate Na Spr 16 Gm Btl) 2 sprays NA DAILY KATHRYN Stop: 01/01/24 08:59 Last Admin: 12/04/23 10:03 Dose: 2 sprays Glucagon (Glucagon For Inj 1 Mg Vial) 1 mg SQ UD PRN; Protocol PRN Reason: Hypoglycemia Protocol Stop: 01/01/24 08:03 Glucose (Glucose 40% Gel 15 Gm Tube) 15 - 30 gm PO UD PRN; Protocol PRN Reason: Hypoglycemia Protocol Stop: 01/01/24 08:03 Glucose (Glucose 10 Tab/Tube) 4 - 8 tab PO UD PRN; Protocol PRN Reason: Hypoglycemia Treatment Stop: 01/01/24 08:03 Sodium Chloride (Nss) 1,000 mls @ 100 mls/hr IV .Q10H [facility] Stop: 01/01/24 07:39 Last Admin: 12/04/23 14:39 Dose: 100 mls/hr Meropenem 500 mg/ Syringe 10 mls @ 2 mls/min IV BID [facility]; Protocol Stop: 12/12/23 08:59 Last Admin: 12/04/23 10:00 Dose: 2 mls/min Heparin Sodium/Dextrose (Heparin Sodium/Dextrose) 25,000 units in 500 mls @ 21 mls/hr IV .[id number] [facility]; Protocol Stop: 01/01/24 07:39 Last Titration: 12/04/23 10:40 Dose: 1,050 units/hr, 21 mls/hr Vancomycin HCl 750 mg/ Sodium (Chloride) 265 mls @ 200 mls/hr IV Q12H KATHRYN Stop: 12/13/23 10:59 Last Infusion: 12/04/23 12:40 Dose: Infused Insulin Aspart (Insulin Aspart Per Unit Charge) 0 units SC ACHS KATHRYN Stop: 01/01/24 11:29 Last Admin: 12/04/23 12:32 Dose: 2 units Levothyroxine Sodium (Levothyroxine Sodium 150 Mcg Tablet) 150 mcg PO DAILYBB KATHRYN Stop: 01/01/24 07:59 Last Admin: 12/04/23 06:29 Dose: 150 mcg Loratadine (Loratadine 10 Mg Tab) 10 mg PO DAILY KATHRYN Stop: 01/01/24 08:59 Last Admin: 12/04/23 09:56 Dose: 10 mg Losartan Potassium (Losartan Potassium 50 Mg Tab) 50 mg PO QAM [facility]; Protocol Stop: 01/02/24 15:44 Last Admin: 12/04/23 09:58 Dose: 50 mg Melatonin (Melatonin 3 Mg Tab) 3 mg PO HS PRN PRN Reason: Sleep Stop: 01/03/24 03:05 Last Admin: 12/04/23 03:18 Dose: 3 mg Metoprolol Succinate (Metoprolol Succ 25mg Ext Rel Tab) 75 mg PO BID KATHRYN Stop: 01/01/24 20:59 Last Admin: 12/04/23 09:57 Dose: 75 mg Miscellaneous (Loteprednol Etabonate 0.5 %: Order Awaiting Action) 1 each N/A QS KATHRYN Stop: 01/01/24 15:59 Last Admin: 12/04/23 08:49 Dose: Not Given Miscellaneous (Olopatadine 0.1 % Drops: Order Awaiting Action) 1 each N/A QS KATHRYN Stop: 01/01/24 15:59 Last Admin: 12/04/23 08:49 Dose: Not Given Miscellaneous (Carbohydrates For Hypoglycemia ) 15 - 30 gm PO UD PRN PRN Reason: Hypoglycemia Protocol Stop: 01/01/24 08:03 Miscellaneous Information (Vancomycin Consult Active) 1 each N/A UD PRN PRN Reason: Consult Stop: 01/01/24 07:39 Nitroglycerin (Nitroglycerin Sl 0.4 Mg/Tab Tab) 0.4 mg SL Q5M PRN PRN Reason: Chest Pain Stop: 01/01/24 07:39 Pantoprazole Sodium (Pantoprazole 40 Mg Tab) 40 mg PO BID KATHRYN Stop: 01/01/24 08:59 Last Admin: 12/04/23 09:58 Dose: 40 mg Polyethylene Glycol (Polyethylene (Miralax) 17 Gm Pack) 17 gm PO HS PRN PRN Reason: Constipation Stop: 01/01/24 07:39 Sertraline HCl (Sertraline Hcl 100 Mg Tablet) 100 mg PO DAILY KATHRYN Stop: 01/01/24 08:59 Last Admin: 12/04/23 09:57 Dose: 100 mg Umeclidinium/Vilanterol (Umeclidinium/Vilanterol 62.5/25mcg 7 Puffs/Inhaler) 1 puffs INH DAILY KATHRYN Stop: 01/01/24 08:59 Last Admin: 12/04/23 10:04 Dose: 1 puffs
[2023-12-04] MEDS: MAGNESIUM SULFATE / D5W 1 GM/100 ML BAG IV ONE (16:38)
[2023-12-04] MEDS ORDERED: MAGNESIUM SULFATE / D5W 1 GM/100 ML BAG IV ONE (17:22)
[2023-12-04 17:44] LABS: ANTI-Xa, UFH(UnfractionatedHep 0.31 IU/ml (0.3-0.7)
[2023-12-04] MEDS: PIPER/TAZO 4.5g in D5W MINI-B 100 ML IV ONE (18:04)
[2023-12-04] MEDS: LOTEPREDNOL ETABONATE 5 ML OPH SUSP OPB SCH (22:09)
[2023-12-04] MEDS: PIPERACILLIN/TAZOBACTAM 4.5 GM in DEXTROSE 5% MINI-B 100 ML IV SCH (23:33)
[2023-12-05] MEDS: ONDANSETRON INJ 2 MG/ML 2 ML VIAL IV STA (04:35)
[2023-12-05] MEDS: traMADol HCL 50 MG TABLET PO STA (04:57)
[2023-12-05 05:56] LABS: Hematocrit (blood only) 34.9 % (37.0-47.0); Hemoglobin 11.7 g/dl (12.0-16.0); Mean Corpuscular Hemoglobin 31.7 pg (25.0-34.0); Mean Corpuscular Hgb Conc 33.5 g/dL (32.0-36.0); Mean Corpuscular Volume 94.6 fL (80.0-100.0); Mean Platelet Volume 9.6 fL (9.4-12.4); Platelet Count 141 K/uL (130-400); RDW Coefficient of Variation 12.1 % (11.5-14.5); RDW Standard Deviation 42.1 fL (36.4-46.3); Red Blood Count 3.69 M/uL (4.20-5.40); White Blood Count 6.33 K/ul (4.8-10.8)
[2023-12-05 06:03] LABS: Albumin Globulin Ratio 1.3 (0.9-2); BUN Creatinine Ratio 14.1 (10-20); Bilirubin,Total 1.1 mg/dl (0.2-1.0); Calcium 7.9 mg/dl (8.6-10.3); Creatinine Clr Calc Pharmacy 48.2 ml/min; Est GFR (African American) 68.2 ml/min; Est GFR (Non-African American) 58.8 ml/min; Globulin 2.3 gm/dl (2.5-4.0); Magnesium 1.8 mg/dl (1.7-2.4); Phosphorus 2.4 mg/dl (2.5-4.9); Potassium 3.7 mmol/L (3.5-5.1); Total Protein 5.3 gm/dl (6.0-8.3)
[2023-12-05 06:33] LABS: ANTI-Xa, UFH(UnfractionatedHep 0.36 IU/ml (0.3-0.7)
--- NOTE | 2023-12-05 08:32 | Hospitalist Progress Note ---
Date of Service December 05, 2023 Assessment & Plan (1) Elevated LFTs: Plan: 78 yo F with PMHx significant for Type 2 diabetes, hypothyroidism, hyperlipidemia, moderate persistent asthma, multiple pulmonary nodules, paroxysmal atrial fibrillation, chronic diastolic CHF, hypertension, asymptomatic bilateral carotid artery stenosis, vitamin B12 deficiency, GERD, obesity, slow transit constipation, CKD stage III, osteoarthritis, chronic chest pains, statin intolerance, lumbar spinal stenosis, generalized anxiety, depression, history of COVID, physical deconditioning, who lives at home with her daughter and was brought in because of weakness and shortness of breath and some chest heaviness. Patient had some burning micturition [employer] and was started on Keflex. [employer], patient was confused and hallucinating. As per daughter the confusion slowly improved. But still has some mild burning micturition. But she was getting progressively weak, with poor appetite and difficulty ambulating. She complained of some chest tightness and shortness of breath and was brought into the hospital. In the ER initially she was in rapid A-fib, improved after fluid bolus. She was also given empiric cefepime. UA suggestive of infection. Liver enzymes significantly elevated. Patient takes Tylenol 2000 to 3000g daily for headaches. Last Tylenol was last Sunday. Transaminitis CT abd.pelvis "1. No acute infectious or inflammatory findings are identified in the abdomen or pelvis. 2. The liver is normal in size and attenuation. 3. Bibasilar pulmonary nodules are pathologically indeterminate and unchanged from prior studies." Tylenol level unremarkable Acute hepatitis panel ordered, also will obtain EBV and autoimmune liver panel GI consulted, appreciate recs - likely multifactorial etiology "however DDx includes DILI from recent ABx use, Tylenol overdose, Sepsis Hepatopathy, Congestive Hepatopathy" -Recommended: Check INR, start NAC for 2 days, check Viral Hepatitis panel including EBV and autoimmune panel, avoid Hepatotoxic meds, monitor LFTs. NAC was started per protocol, hepatitis panel pending LFTs trending down Holding home rosuvastatin and ezetimibe closely monitor UTI possible sepsis treated for UTI w/ keflex as outpt still w/ dysuria on admission elevated procalcitonin, lactic acid wnl UA was suggestive of infection, urine Cx (obtained after abx) with NGTD Blood Cx x2 sets with NGTD Placed empirically on meropenem and vanco on admission Was switched to IV zosyn Switched to IV Rocephin on 12/04 for 2 more days to complete 5 days of IV abx treatment Rapid a fib Demand ischemia hx of afib during infection and not on anticoagulation came with rapid a fib, currently improved placed on iv heparin continue home metoprolol Echo obtained -LV systolic function is normal. RV is normal in size and function. No significant valvular abnormality. Normal inferior vena cava size and collapsibility with sniff indicates an normal right atrial pressure of 3 mmHg. troponins 20-40s - likely secondary to afib Cardiology consulted, appreciate recs -Changed from metoprolol tartrate 75mg qAM and 50mg qPM to metoprolol succinate 75mg BID -"[id number] 7 points. Risks and benefits of anticoagulation discussed with patient and daughters. Via shared decision making, the benefits of anticoagulation appear to be greater than the risks. Continue IV heparin, transitioning to Eliquis anticoagulation prior to discharge." Pt transitioned to Eliquis 5mg BID on 12/04 hx of chronic diastolic chf holding home hctz had IV fluids monitor for volume overload HTN holding irbesartan and hctz metoprolol with holding parameters Losartan resumed (formulary alternative for irbesartan) Norman on ckd stage 3 baseline cr 1.0 Cr 1.3 on admission -> 0.7 received fluids holding irbesartan and hctz, started losartan for now Currently wnl Resume home meds as able Hyperlipidemia on zetia, holding holding statin for elevated lft GAURAV non compliant with cpap Hx of moderate persistent asthma continue home inhalers anxiety/depression on alprazolam and zoloft Diabetes ISS will monitor. Hypothyroidism on Synthroid TSH 1.38 hypokalemia replace and monitor hypocalcemia ca 8.0 start on supplements check vitamin d levels. AM ionized ny Diet: DMII DVT px - switched to po Eliquis Dispo: PT/OT rec home with home health services Admission and Anticipated Discharge Date Admission Date: December 02, 2023 Subjective Pt was seen sitting up in bed eating lunch. denied acute concerns, states she feels well enough to go home. Denied acute concerns. Review of Systems Review of Systems: All systems reviewed & are unremarkable except as noted in Subjective Physical Exam Physical Exam: General: Alert, oriented. No acute distress Skin: No noted rashes or bruises Psych: Appropriate mood and affect Neuro: No gross deficits HEENT: NC/AT CV: Irregular Resp: Breath sounds clear bilaterally, no increased effort of breathing. Abdomen: Soft, nontender, nondistended Extremities: No edema in lower extremities bilaterally. Results & Data Results & Data Vital Signs (Past 12 Hours) Vital Signs Temp Pulse Pulse Resp BP BP Pulse Ox 12/05/23 07:11 36.5 C 90 16 128/83 93 12/05/23 04:10 36.6 C 95 H 20 140/85 96 12/05/23 00:44 36.3 C L 90 20 159/84 H 98 12/04/23 23:44 12/04/23 22:04 80 O2 Del Method O2 Flow Rate 12/05/23 07:11 Room Air 12/05/23 04:10 Nasal Cannula 2 12/05/23 00:44 Nasal Cannula 2 12/04/23 23:44 Nasal Cannula 2 12/04/23 22:04 Diagnostic Findings Chest X-Ray 12/02/23 02:21 SINGLE VIEW CHEST CLINICAL HISTORY: Sepsis. FINDINGS: 2 AP, portable, upright chest radiographs are compared to study dated 12/13/2022 and correlated with chest CT dated 04/30/2017. The examination is degraded by portable technique and patient rotation. The cardiac silhouette is enlarged noting atherosclerotic calcification of the thoracic aorta. The pulmonary vasculature is noncongested. Chronic interstitial thickening is similar to previous. There is bibasilar scarring/atelectasis. No airspace consolidation or large pleural effusion is identified. No pneumothorax is seen. The skeletal structures are osteopenic. The bony thorax is grossly intact. Cholecystectomy clips are noted in the right upper quadrant. IMPRESSION: No acute cardiopulmonary abnormality is identified. ACT 112: Negative or not required by law. Electronically signed by: Slick Bragg M.D. 12/02/2023 8:26 AM Abdomen/Pelvis CT 12/02/23 06:05 CT SCAN OF THE ABDOMEN AND PELVIS WITHOUT IV CONTRAST CLINICAL HISTORY: Elevated hepatic transaminases COMPARISON STUDY: Abdominal CT dated 12/13/2022. TECHNIQUE: CT scan of the abdomen and pelvis is performed from the lung bases to the proximal femora. Images are reviewed in the axial, sagittal, and coronal planes. IV contrast was not administered for this examination. Note that the examination was performed in suboptimal fashion without oral and IV contrast. A dose lowering technique was utilized adhering to the principles of ALARA. CT DOSE: 1265.29 mGy.cm FINDINGS: Lung bases: The heart is normal in size and without pericardial effusion. The coronary arteries are densely calcified. A small hiatal hernia is noted. A 9 mm left basilar pulmonary nodule on image #10 is unchanged, as are numerous additional 2-3 mm basilar nodules. There is bibasilar scarring/atelectasis. No airspace consolidation or pleural effusion is identified. Liver: The unenhanced liver is normal in size, contour, and attenuation. There is no intrahepatic biliary ductal dilatation. Gallbladder: Surgically absent noting clips in the gallbladder fossa. Spleen: Normal in size and attenuation. Pancreas: The unenhanced pancreas is moderately atrophic and grossly unremarkable. Adrenal glands: Unremarkable. Kidneys: The unenhanced kidneys demonstrate mild cortical atrophy and are without hydronephrosis. There are no renal calculi identified. A 1.5 cm cyst is noted in the left. Abdominal vasculature: There is advanced atherosclerotic calcification and mild ectasia of the abdominal aorta. Bowel: There is no bowel obstruction. Mild fecal retention is seen throughout the colon. The appendix is not identified and reported surgically absent. Peritoneum: There is no intraperitoneal free air or abdominal ascites. There is a small fat-containing umbilical hernia. Lymphadenopathy: None. Pelvic viscera: The bladder, uterus, and adnexa are normal as visualized. Skeletal structures: The skeletal structures are osteopenic. Postsurgical and spondylotic change is noted in the lumbar spine. No lytic or blastic lesions are seen. IMPRESSION: 1. No acute infectious or inflammatory findings are identified in the abdomen or pelvis. 2. The liver is normal in size and attenuation. 3. Bibasilar pulmonary nodules are pathologically indeterminate and unchanged from prior studies. 4. Additional findings as above. ACT 112: Negative or not required by law. Electronically signed by: Slick Bragg M.D. 12/02/2023 9:13 AM
[2023-12-05] MEDS: POT PHOSPHATE MONOBASIC W/ SOD TAB PO SCH (09:45)
[2023-12-05 17:38] LABS: EBV DNA Quant PCR Not Detected copies/mL; EBV DNA Quant Source Serum; HBSAG NON-REACTIVE (NON-REACTIVE); Hepatitis A Antibody IgM NON-REACTIVE (NON-REACTIVE); Hepatitis B Core Antibody IgM NON-REACTIVE (NON-REACTIVE)
[2023-12-05] MEDS: cefTRIAXone SODIUM 2,000 MG/50 ML BAG IV SCH (18:16)
[2023-12-05] MEDS: APIXABAN 5 MG TABLET PO SCH (21:55)
[2023-12-06] MEDS: METOPROLOL TARTRATE 1 MG/ML VIAL IV STA (03:41)
[2023-12-06] MEDS: POTASSIUM CHLORIDE CRTAB 20 MEQ TABCR PO STA (03:42)
[2023-12-06] MEDS: MAGNESIUM SULFATE / D5W 1 GM/100 ML BAG IV ONE (03:42)
[2023-12-06] MEDS: SODIUM CHLORIDE 0.9% 1,000 ML IV ONE (03:51)
[2023-12-06] MEDS: METOPROLOL SUCC 25MG EXT REL TAB PO STA (05:08)
[2023-12-06 07:56] LABS: Basophils # (auto) 0.01 K/uL (0.00-0.20); Basophils % (auto) 0.1 %; Eosinophils # (auto) 0.54 K/uL (0.00-0.50); Eosinophils % (auto) 7.6 %; Hematocrit (blood only) 35.3 % (37.0-47.0); Hemoglobin 11.8 g/dl (12.0-16.0); Immature Granulocytes # (auto) 0.02 K/uL (0.01-0.20); Immature Granulocytes % (auto) 0.3 %; Lymphocytes # (auto) 0.74 K/uL (1.20-3.40); Lymphocytes % (auto) 10.4 %; Mean Corpuscular Hemoglobin 31.7 pg (25.0-34.0); Mean Corpuscular Hgb Conc 33.4 g/dL (32.0-36.0); Mean Corpuscular Volume 94.9 fL (80.0-100.0); Mean Platelet Volume 9.7 fL (9.4-12.4); Monocytes # (auto) 0.06 K/uL (0.11-0.59); Monocytes % (auto) 0.8 %; Neutrophils # (auto) 5.74 K/uL (1.40-6.50); Neutrophils % (auto) 80.8 %; Platelet Count 149 K/uL (130-400); RDW Coefficient of Variation 12.6 % (11.5-14.5); Red Blood Count 3.72 M/uL (4.20-5.40); White Blood Count 7.11 K/ul (4.8-10.8)
[2023-12-06 08:16] LABS: ANTI-Xa, UFH(UnfractionatedHep < 0.10 IU/ml (0.3-0.7); Albumin Globulin Ratio 1.2 (0.9-2); Albumin Level 2.9 gm/dl (3.4-5.0); BUN Creatinine Ratio 20.7 (10-20); Bilirubin,Total 0.7 mg/dl (0.2-1.0); Calcium 7.8 mg/dl (8.6-10.3); Creatinine Clr Calc Pharmacy 48.1 ml/min; Est GFR (African American) 68.2 ml/min; Est GFR (Non-African American) 58.8 ml/min; Globulin 2.5 gm/dl (2.5-4.0); Phosphorus 5.2 mg/dl (2.5-4.9); Potassium 4.3 mmol/L (3.5-5.1); Total Protein 5.4 gm/dl (6.0-8.3)
[2023-12-06] MEDS: CALCIUM GLUCONATE 1,000 MG/60 ML BAG IV SCH (11:14)
--- NOTE | 2023-12-06 15:00 | Hospitalist Progress Note ---
Date of Service December 06, 2023 Assessment & Plan (1) Elevated LFTs: Plan: 78 yo F with PMHx significant for Type 2 diabetes, hypothyroidism, hyperlipidemia, moderate persistent asthma, multiple pulmonary nodules, paroxysmal atrial fibrillation, chronic diastolic CHF, hypertension, asymptomatic bilateral carotid artery stenosis, vitamin B12 deficiency, GERD, obesity, slow transit constipation, CKD stage III, osteoarthritis, chronic chest pains, statin intolerance, lumbar spinal stenosis, generalized anxiety, depression, history of COVID, physical deconditioning, who lives at home with her daughter and was brought in because of weakness and shortness of breath and some chest heaviness. 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 As per daughter the confusion slowly improved. But still has some mild burning micturition. But she was getting progressively weak, with poor appetite and difficulty ambulating. She complained of some chest tightness and shortness of breath and was brought into the hospital. In the ER initially she was in rapid A-fib, improved after fluid bolus. She was also given empiric cefepime. UA suggestive of infection. Liver enzymes significantly elevated. Patient takes Tylenol 2000 to 3000g daily for headaches. Last Tylenol was last Sunday. Transaminitis CT abd.pelvis "1. No acute infectious or inflammatory findings are identified in the abdomen or pelvis. 2. The liver is normal in size and attenuation. 3. Bibasilar pulmonary nodules are pathologically indeterminate and unchanged from prior studies." Tylenol level unremarkable Acute hepatitis panel ordered, also will obtain EBV and autoimmune liver panel GI consulted, appreciate recs - likely multifactorial etiology "however DDx includes DILI from recent ABx use, Tylenol overdose, Sepsis Hepatopathy, Congestive Hepatopathy" -Recommended: Check INR, start NAC for 2 days, check Viral Hepatitis panel including EBV and autoimmune panel, avoid Hepatotoxic meds, monitor LFTs. NAC was started per protocol, hepatitis panel pending LFTs trending down Holding home rosuvastatin and ezetimibe closely monitor Improving UTI possible sepsis treated for UTI w/ keflex as outpt still w/ dysuria on admission elevated procalcitonin, lactic acid wnl UA was suggestive of infection, urine Cx (obtained after abx) with NGTD Blood Cx x2 sets with NGTD Placed empirically on meropenem and vanco on admission Was switched to IV zosyn Switched to IV Rocephin on 12/04 for 2 more days to complete 5 days of IV abx treatment Procalcitonin now wnl Rapid a fib Demand ischemia hx of afib during infection and not on anticoagulation came with rapid a fib, currently improved placed on iv heparin continue home metoprolol Echo obtained -LV systolic function is normal. RV is normal in size and function. No significant valvular abnormality. Normal inferior vena cava size and collapsibility with sniff indicates an normal right atrial pressure of 3 mmHg. troponins 20-40s - likely secondary to afib Cardiology consulted, appreciate recs -Changed from metoprolol tartrate 75mg qAM and 50mg qPM to metoprolol succinate 75mg BID -"[id number] 7 points. Risks and benefits of anticoagulation discussed with patient and daughters. Via shared decision making, the benefits of anticoagulation appear to be greater than the risks. Continue IV heparin, transitioning to Eliquis anticoagulation prior to discharge." Pt transitioned to Eliquis 5mg BID on 12/04 hx of chronic diastolic chf holding home hctz had IV fluids monitor for volume overload HTN holding irbesartan and hctz metoprolol with holding parameters Losartan resumed (formulary alternative for irbesartan) [place] on ckd stage 3 baseline cr 1.0 Cr 1.3 on admission -> 0.7 received fluids holding irbesartan and hctz, started losartan for now Currently wnl Resume home meds as able Hyperlipidemia on zetia, holding holding statin for elevated lft GAURAV non compliant with cpap Hx of moderate persistent asthma continue home inhalers anxiety/depression on alprazolam and zoloft Diabetes ISS will monitor. Hypothyroidism on Synthroid TSH 1.38 hypokalemia replace and monitor hypocalcemia ca 8.0 start on supplements check vitamin d levels. AM ionized ny low IV gluconate supplementation as needed Diet: DMII DVT px - switched to po Eliquis Dispo: PT/OT rec home with home health services Admission and Anticipated Discharge Date Admission Date: December 02, 2023 Subjective pt was seen sitting i chair at bedside. States she is not yet ready to go home. States feels tired, but working with PT Review of Systems Review of Systems: All systems reviewed & are unremarkable except as noted in Subjective Physical Exam Physical Exam: General: Alert, oriented. No acute distress Skin: No noted rashes or bruises Psych: Appropriate mood and affect Neuro: No gross deficits HEENT: NC/AT CV: Irregular Resp: Breath sounds clear bilaterally, no increased effort of breathing. Abdomen: Soft, nontender, nondistended Extremities: No edema in lower extremities bilaterally. Results & Data Results & Data Vital Signs (Past 12 Hours) Vital Signs Temp Pulse Pulse Resp BP BP Pulse Ox 12/06/23 11:28 36.6 C 106 H 20 124/85 92 12/06/23 09:20 12/06/23 07:51 36.7 C 95 H 20 146/75 H 97 12/06/23 07:09 100 H 12/06/23 04:42 88 164/91 H 96 12/06/23 04:41 88 164/91 H 12/06/23 03:41 106 H 166/86 H 12/06/23 03:23 36.7 C 106 H 18 166/86 H 92 O2 Del Method O2 Flow Rate 12/06/23 11:28 Room Air 12/06/23 09:20 Room Air 12/06/23 07:51 Nasal Cannula 2 12/06/23 07:09 12/06/23 04:42 Nasal Cannula 2 12/06/23 04:41 12/06/23 03:41 12/06/23 03:23 Nasal Cannula 2
[2023-12-06 15:02] LABS: Anti Mitochondrial Antibody NEGATIVE (NEGATIVE); Anti Nuclear Antibody Screen NEGATIVE (NEGATIVE); Smooth Muscle Antibody POSITIVE (NEGATIVE)
[2023-12-06] MEDS: METOPROLOL SUCC 25MG EXT REL TAB PO SCH (21:12)
[2023-12-07 05:52] LABS: Basophils # (auto) 0.02 K/uL (0.00-0.20); Basophils % (auto) 0.2 %; Eosinophils # (auto) 0.64 K/uL (0.00-0.50); Eosinophils % (auto) 7.5 %; Hematocrit (blood only) 37.5 % (37.0-47.0); Hemoglobin 12.8 g/dl (12.0-16.0); Immature Granulocytes # (auto) 0.02 K/uL (0.01-0.20); Immature Granulocytes % (auto) 0.2 %; Lymphocytes # (auto) 0.94 K/uL (1.20-3.40); Mean Corpuscular Hemoglobin 31.9 pg (25.0-34.0); Mean Corpuscular Hgb Conc 34.1 g/dL (32.0-36.0); Mean Corpuscular Volume 93.5 fL (80.0-100.0); Monocytes # (auto) 0.06 K/uL (0.11-0.59); Monocytes % (auto) 0.7 %; Neutrophils # (auto) 6.87 K/uL (1.40-6.50); Neutrophils % (auto) 80.4 %; Platelet Count 172 K/uL (130-400); RDW Standard Deviation 41.7 fL (36.4-46.3); Red Blood Count 4.01 M/uL (4.20-5.40); White Blood Count 8.55 K/ul (4.8-10.8)
[2023-12-07 06:08] LABS: Albumin Globulin Ratio 1.2 (0.9-2); Albumin Level 3.6 gm/dl (3.4-5.0); BUN Creatinine Ratio 20.7 (10-20); Bilirubin,Total 0.8 mg/dl (0.2-1.0); Calcium 8.8 mg/dl (8.6-10.3); Creatinine Clr Calc Pharmacy 49.6 ml/min; Est GFR (African American) 68.2 ml/min; Est GFR (Non-African American) 58.8 ml/min; Globulin 2.9 gm/dl (2.5-4.0); Magnesium 1.9 mg/dl (1.7-2.4); Phosphorus 3.6 mg/dl (2.5-4.9); Potassium 4.5 mmol/L (3.5-5.1); Total Protein 6.5 gm/dl (6.0-8.3)
[2023-12-07 06:18] LABS: ANTI-Xa, UFH(UnfractionatedHep 0.55 IU/ml (0.3-0.7)
[2023-12-07 08:14] LABS: Smooth Muscle Ab Titer 1:20 titer (<1:20)
--- NOTE | 2023-12-07 12:25 | Discharge Summary ---
Discharge Summary Date of Service December 07, 2023 Principal Dx & Hospital Course #1 = Principal Diagnosis (1) Elevated LFTs: 78 yo F with PMHx significant for Type 2 diabetes, hypothyroidism, hyperlipidemia, moderate persistent asthma, multiple pulmonary nodules, paroxysmal atrial fibrillation, chronic diastolic CHF, hypertension, asymptomatic bilateral carotid artery stenosis, vitamin B12 deficiency, GERD, obesity, slow transit constipation, CKD stage III, osteoarthritis, chronic chest pains, statin intolerance, lumbar spinal stenosis, generalized anxiety, depression, history of COVID, physical deconditioning, who lives at home with her daughter and was brought in because of weakness and shortness of breath and some chest heaviness. 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 As per daughter the confusion slowly improved. But still had some mild burning micturition. But she was getting progressively weak, with poor appetite and difficulty ambulating. She complained of some chest tightness and shortness of breath and was brought into the hospital. In the ER initially she was in rapid A-fib, improved after fluid bolus. She was also given empiric cefepime. UA suggestive of infection. Liver enzymes significantly elevated. Patient takes Tylenol 2000 to 3000g daily for headaches. Last Tylenol was last Sunday. Transaminitis CT abd/pelvis "1. No acute infectious or inflammatory findings are identified in the abdomen or pelvis. 2. The liver is normal in size and attenuation. 3. Bibasilar pulmonary nodules are pathologically indeterminate and unchanged from prior studies." Tylenol level unremarkable Acute hepatitis panel negative, EBV negative and autoimmune liver panel ordered by GI GI consulted, appreciate recs - likely multifactorial etiology "however DDx includes DILI from recent ABx use, Tylenol overdose, Sepsis Hepatopathy, Congestive Hepatopathy" -Recommended: Check INR, start NAC for 2 days, check Viral Hepatitis panel including EBV and autoimmune panel, avoid Hepatotoxic meds, monitor LFTs. NAC was started per protocol, hepatitis panel negative, EBV negative and autoimmune liver panel ordered by GI LFTs trending down Held home rosuvastatin and ezetimibe- please continue to hold after discharge until liver enzymes have normalized. Close PCP and GI followup after discharge UTI possible sepsis Was being treated for UTI w/ keflex as outpt Still w/ dysuria on admission Elevated procalcitonin, lactic acid wnl UA was suggestive of infection, urine Cx (obtained after abx) with NGTD Blood Cx x2 sets with NGTD Placed empirically on meropenem and vanco on admission Was switched to IV zosyn Switched to IV Rocephin on 12/04 for 2 more days to complete 5 days of IV abx treatment Procalcitonin rechecked and is now wnl Discontinue home Keflex after discharge Close PCP followup Rapid a fib Demand ischemia Hx of afib during infection and not on anticoagulation Came with rapid a fib, was placed on iv heparin Continued home metoprolol Echo obtained -LV systolic function is normal. RV is normal in size and func tion. No significant valvular abnormality. Normal inferior vena cava size and collapsibility with sniff indicates an normal right atrial pressure of 3 mmHg. Troponin slightly elevated in 20-40s - likely demand, secondary to afib Cardiology consulted, appreciate recs -Changed from metoprolol tartrate 75mg qAM and 50mg qPM to metoprolol succinate 75mg BID -"[id number] 7 points. Risks and benefits of anticoagulation discussed with patient and daughters. Via shared decision making, the benefits of anticoagulation appear to be greater than the risks. Continue IV heparin, transitioning to Eliquis anticoagulation prior to discharge." Pt transitioned to Eliquis 5mg BID on 12/04. Continue with metoprolol succinate 75mg BID and Eliquis 5mg BID Close Cardiology follow up after discharge Hx of chronic diastolic chf Held home hctz in setting of NOLAN Had IV fluids Monitored for volume overload Stable HTN held home irbesartan and hctz in setting of NOLAN metoprolol succinate with holding parameters Resume on discharge NOLAN on CKD stage 3 baseline cr 1.0 Cr 1.3 on admission, down to 0.7 Received IV fluids Held nephrotoxic irbesartan and hctz Cr currently wnl Resume home HCTZ, irbesartan on discharge Hyperlipidemia Held both home statin and Ezetimibe in setting of LFTs Continue to hold after discharge GAURAV non compliant with cpap Hx of moderate persistent asthma continue home inhalers anxiety/depression on alprazolam and zoloft Diabetes ISS Resume home meds on discharge Hypothyroidism on Synthroid TSH 1.38 Hypokalemia repleted as needed Hypocalcemia ca 8.0 Ionized calcium decreased IV gluconate supplementation as needed Ionized calcium normal on discharge Pulmonary Nodules Noted on CT abd/pelvis at the bibasilar bases Close pcp followup Notes For Next Care Provider Please continue to monitor LFTs after discharge. Close GI followup. Please ensure close cardiology followup Please continue to monitor pulmonary nodules noted on imaging Medication Changes From Visit Metoprolol succinate 75mg BID Eliquis 5mg BID Discontinue home statin and ezetimibe until liver enzymes within normal limits Discontinue previous Keflex prescription Admission HPI Per Admitting Provider 78-year-old female with past medical history significant for Type 2 diabetes, hypothyroidism, hyperlipidemia, moderate persistent asthma, multiple pulmonary nodules, paroxysmal atrial fibrillation, chronic diastolic CHF, hypertension, asymptomatic bilateral carotid artery stenosis, vitamin B12 deficiency, GERD, obesity, slow transit constipation, CKD stage III, osteoarthritis, chronic chest pains, statin intolerance, lumbar spinal stenosis, generalized anxiety, depression, history of COVID, physical deconditioning, who lives at home with her daughter was brought in because of weakness and shortness of breath and some chest heaviness.Since last Sunday patient had some burning micturition. And last Sunday she was started on Keflex. Last Sunday patient was confused and hallucinating. As per daughter the confusion slowly improved. But still has some mild burning micturition. But she was getting progressively weak. Poor appetite. Before she is to ambulate fine but now she needs assistance. And today she complained of some chest tightness and shortness of breath and was brought into the hospital. In the ER initially she was in rapid A-fib. Seemed dry. In the ER received fluid bolus. And tachycardia improved. She was also given empiric cefepime. Urinalysis came back positive. But bilirubin is elevated and AST ALT are highly elevated. Patient takes Tylenol 2000 to 3000 g daily for headaches. Last Tylenol was last Sunday. She did not move bowels for last few days. Her urine is very dark and has low urine output. Currently patient is alert and oriented x 3. Has some headache. No blurred visions. No runny nose or sore throat. Currently no cough. Currently chest pain improved. Currently no shortness of breath. Currently no nausea. No abdominal pain. Hemodynamics are okay currently. Daughters are in the room who helped with h and p. past medical history. As mentioned above. past surgical history. colonoscopy, EGD, dilatation curettage, laparoscopic cholecystectomy, decompression of some spinal cord /laminectomy, appendectomy, removal of ovary right side, tonsillectomy and adenoidectomy, bilateral cataracts, revision of left knee joint replacement. Social history. Quit smoking in 1971 smoked half pack a day for 13 years. No alcohol use. No drug use. Family history. Sister had colon cancer. Sister has hypertension. Mother had CHF and hypertension. Father had hypertension and stroke. Brother had lung cancer. Brother had heart disorder. Admission Exam Per Admitting Provider General- Not in acute distress Head- atraumatic Eyes- PERRL,. ENT- oropharynx clear Neck- supple, no JVD. Lungs- clear to auscultation no wheezing or crackles. Heart- irregular rhythm; no murmur, no gallop. Abdomen- normal bowel sounds, soft, nontender, no distension Extremities- trace pretibial edema present, no erythema seen. Neuro- alert, oriented x 3; PERRL, no facial palsy; no dysarthria; moves extremities. Skin- warm & dry Discharge Exam General: Alert, oriented. No acute distress Skin: No noted rashes or bruises Psych: Appropriate mood and affect Neuro: No gross deficits HEENT: NC/AT CV: Irregular Resp: Breath sounds clear bilaterally, no increased effort of breathing. Abdomen: Soft, nontender, nondistended Extremities: No edema in lower extremities bilaterally. Updated Medication List Medication Instructions Recorded Confirmed Type irbesartan 150 mg tablet 150 mg PO DAILY 02/12/19 12/02/23 History metoprolol tartrate 50 mg tablet See Rx Instructions .Route .COMPLEX 02/12/19 12/02/23 History albuterol sulfate 90 mcg/actuation 2 puff inhalation Q6H PRN 06/12/19 12/02/23 History aerosol inhaler Shortness Of Breath Or Wheezing #1 g rosuvastatin 10 mg tablet 10 mg PO DAILY 06/12/19 12/02/23 History polyethylene glycol 3350 17 gram 17 gm PO HS PRN Constipation 12/11/19 12/02/23 History oral powder packet (Miralax) sertraline 100 mg tablet 100 - 200 mg PO DAILY 12/11/19 12/02/23 History acetaminophen 650 mg 650 mg PO Q8H PRN pain 12/13/22 12/02/23 History tablet,extended release cyanocobalamin (vitamin B-12) 1,000 mcg IM MONTHLY 12/13/22 12/02/23 History 1,000 mcg/mL injection kit dulaglutide 0.75 mg/0.5 mL 0.75 mg subcut WK 12/13/22 12/02/23 History subcutaneous pen injector (Trulicgaye) ezetimibe 10 mg tablet 10 mg PO DAILY 12/13/22 12/02/23 History fluticasone propionate 50 2 spray intranasal DAILY 12/13/22 12/02/23 History mcg/actuation nasal spray,suspension hydrochlorothiazide 12.5 mg tablet 12.5 mg PO DAILY 12/13/22 12/02/23 History levothyroxine 150 mcg tablet 150 mcg PO DAILYBB 12/13/22 12/02/23 History loratadine 10 mg tablet 10 mg PO DAILY 12/13/22 12/02/23 History Relaxium Sleep Suppliment 1 - 2 tab PO HS PRN Sleep 12/02/23 12/02/23 History alprazolam 0.5 mg tablet 0.5 mg PO BID 12/02/23 12/02/23 History aspirin 81 mg tablet,delayed 81 mg PO DAILY 12/02/23 12/02/23 History release cephalexin 500 mg capsule 500 mg PO QID 12/02/23 12/02/23 History docusate sodium 100 mg capsule 200 mg PO HS PRN Constipation 12/02/23 12/02/23 History fluticasone fur. 200 mcg-umeclid 1 inh inhalation DAILY 12/02/23 12/02/23 History 62.5 mcg-vilant 25 mcg inhalat.powder (Trelegy Ellipta) iron,carbonyl 65 mg-vitamin C 125 1 tab PO DAILY 12/02/23 12/02/23 History mg tablet,delayed release (Vitron-C) loteprednol etabonate 0.5 % eye 1 drp OPB BID 12/02/23 12/02/23 History drops,suspension olopatadine 0.1 % eye drops 1 drp OPB BID 12/02/23 12/02/23 History ondansetron HCl 4 mg tablet 4 mg PO Q6H PRN NAUSEA/VOMITING 12/02/23 12/02/23 History pantoprazole 20 mg tablet,delayed 20 mg PO BID 12/02/23 12/02/23 History release apixaban 5 mg tablet (Eliquis) 5 mg PO BID #60 tabs 12/07/23 Rx metoprolol succinate 25 mg 75 mg (3 x 25 mg) PO BID #180 tabs 12/07/23 Rx tablet,extended release 24 hr Hospital Stay Data Consultations 12/02/23 03:32 ED Decision to Admit Stat 12/02/23 07:40 Consult Cardiology Routine Consult Gastroenterology Routine Diagnostic Imagining Performed 12/02/23 06:05 CT Abd and Pelvis [CT abd pelvis wo con] Stat Chest X-Ray 12/02/23 02:21 SINGLE VIEW CHEST CLINICAL HISTORY: Sepsis. FINDINGS: 2 AP, portable, upright chest radiographs are compared to study dated 12/13/2022 and correlated with chest CT dated 04/30/2017. The examination is degraded by portable technique and patient rotation. The cardiac silhouette is enlarged noting atherosclerotic calcification of the thoracic aorta. The pulmonary vasculature is noncongested. Chronic interstitial thickening is similar to previous. There is bibasilar scarring/atelectasis. No airspace consolidation or large pleural effusion is identified. No pneumothorax is seen. The skeletal structures are osteopenic. The bony thorax is grossly intact. Cholecystectomy clips are noted in the right upper quadrant. IMPRESSION: No acute cardiopulmonary abnormality is identified. ACT 112: Negative or not required by law. Electronically signed by: Slick Bragg M.D. 12/02/2023 8:26 AM Abdomen/Pelvis CT 12/02/23 06:05 CT SCAN OF THE ABDOMEN AND PELVIS WITHOUT IV CONTRAST CLINICAL HISTORY: Elevated hepatic transaminases COMPARISON STUDY: Abdominal CT dated 12/13/2022. TECHNIQUE: CT scan of the abdomen and pelvis is performed from the lung bases to the proximal femora. Images are reviewed in the axial, sagittal, and coronal planes. IV contrast was not administered for this examination. Note that the examination was performed in suboptimal fashion without oral and IV contrast. A dose lowering technique was utilized adhering to the principles of ALARA. CT DOSE: 1265.29 mGy.cm FINDINGS: Lung bases: The heart is normal in size and without pericardial effusion. The coronary arteries are densely calcified. A small hiatal hernia is noted. A 9 mm left basilar pulmonary nodule on image #10 is unchanged, as are numerous additional 2-3 mm basilar nodules. There is bibasilar scarring/atelectasis. No airspace consolidation or pleural effusion is identified. Liver: The unenhanced liver is normal in size, contour, and attenuation. There is no intrahepatic biliary ductal dilatation. Gallbladder: Surgically absent noting clips in the gallbladder fossa. Spleen: Normal in size and attenuation. Pancreas: The unenhanced pancreas is moderately atrophic and grossly unremarkable. Adrenal glands: Unremarkable. Kidneys: The unenhanced kidneys demonstrate mild cortical atrophy and are without hydronephrosis. There are no renal calculi identified. A 1.5 cm cyst is noted in the left. Abdominal vasculature: There is advanced atherosclerotic calcification and mild ectasia of the abdominal aorta. Bowel: There is no bowel obstruction. Mild fecal retention is seen throughout the colon. The appendix is not identified and reported surgically absent. Peritoneum: There is no intraperitoneal free air or abdominal ascites. There is a small fat-containing umbilical hernia. Lymphadenopathy: None. Pelvic viscera: The bladder, uterus, and adnexa are normal as visualized. Skeletal structures: The skeletal structures are osteopenic. Postsurgical and spondylotic change is noted in the lumbar spine. No lytic or blastic lesions are seen. IMPRESSION: 1. No acute infectious or inflammatory findings are identified in the abdomen or pelvis. 2. The liver is normal in size and attenuation. 3. Bibasilar pulmonary nodules are pathologically indeterminate and unchanged from prior studies. 4. Additional findings as above. ACT 112: Negative or not required by law. Electronically signed by: Slick Bragg M.D. 12/02/2023 9:13 AM Discharge Instructions Given to Patient (Per Discharging Provider) Ms. Calvert, You are stable for discharge. You completed treatment for a urinary tract infection and we treated your rapid heart rate in the setting of atrial fibrillation. You heart rate has improved. Cardiology increased the dose of your home metoprolol and you are on the blood thinner Eliquis. Please take your medications as prescribed. Your liver enzymes were noted to be high but they have come down. We held your home cholesterol medications as possible causes. Please keep close follow up with your primary care provider for continued monitoring. Again, since you declined home health services, please be sure to keep close follow up with your primary care provider after discharge. Please do not hesitate to come back to the emergency room if your symptoms worsen or return. It was a pleasure taking care of you while you were here. Total Time Total Time Spent Total Time Spent (In Minutes): 75
== END 2023-12-07 15:16 | disposition home or self-care (01) | DRG 872 ==
LOC: ED 01:45 → EDINP 06:14 → SUATTDRO 06:14 → 2S 12-03 07:40 → 2N 12-03 22:02

== ENCOUNTER 2024-04-15 17:09 | Inpatient (IN) ==
[2024-04-15 17:43] LABS: Appearance Urine Clear (Clear); Bilirubin Urine Negative (Negative); Blood Urine Negative (Negative); Color Urine Yellow; Glucose Urine UA Negative (Negative); Ketones Urine Negative (Negative); Leukocyte Esterase Urine Negative (Negative); Nitrite Urine Negative (Negative); Protein Urine Negative (Negative); Urobilinogen Urine Negative (Negative); pH Urine 8.5 (4.5-7.5)
--- NOTE | 2024-04-15 18:23 | XRay Report ---
XR chest 1V portable HISTORY: 78 years-old Female Chest pain, nonspecific COMPARISON: 12/02/2023 TECHNIQUE: AP view the chest FINDINGS: Cardiac silhouette is enlarged. Pulmonary vascular congestion with chronic interstitial coarsening. N o pneumothorax, large pleural effusion or lobar airspace consolidation. Spondylitic spurring of the s pine. IMPRESSION: Cardiomegaly with pulmonary vascular congestion. ACT 112: Negative or not required by law. The above report was generated using voice recognition software. It may contain grammatical, syntax o r spelling errors. Electronically signed by: Greyson Sarabia M.D. 04/15/2024 6:22 PM
--- NOTE | 2024-04-15 18:31 | Emergency Department Note ---
Impression & Plan Acute confusion, Hypertension, On apixaban therapy ED Provider Note NAME: LINDA CHATMAN AGE: 78 SEX: F : 1945 ARRIVES VIA: Ambulance INFORMANT: Patient ED PROVIDER(S): Umair Merritt MD CHIEF COMPLAINT: Confusion PLAN: Disposition: Admit MEDICAL DECISION MAKING: The patient is a pleasant 78 year-old woman with a past medical history of diastolic heart failure, COPD, GAURAV, paroxysmal atrial fibrillation on Eliquis, hypertension, hyperlipidemia, hypothyroidism who presents emerged department via EMS and accompanied by her daughter for concern for confusion from her baseline which she exhibited last night when she was waking up in the middle of the night and was speaking to her sister who was not there and was also noted to be "feeding cats" and had found crumbs of crackers on the floor. The patient ports she recalls feeding the cats because they were "in the house" which the daughter confirms was not the case. They suspect that she may have a UTI as this was the case on her prior similar episode. They deny any cough, congestion, GI symptoms otherwise. On evaluation the patient is no distress, afebrile with a blood pressure in the 190s/80s in triage and vital signs otherwise stable. She exhibits mild confusion but is alert, place and situation. She has no focal extremity deficits. EKG without overt acute ischemia. CXR with mild vascular congestion and otherwise no focal infiltrates per my personal preliminary review/interpretation. WBC, H/H and platelets within normal limits. Chemistry without metabolic acidosis. Electrolytes and FTs unremarkable. HS troponin 6.8 within normal limits. Lipase is normal. TSH within limits. UA without evidence of infection. Respiratory BioFire is pending. CT of the head was negative for acute normalities. Chronic small vessel disease as described. Given the patient's confusion from baseline with unclear etiology the patient and her daughter agree with plan for admission for further management. Case was discussed with Dr. Kasper, [facility] hospitalist who will evaluate the patient for admission. Further management per admitting team. Triage Nursing notes reviewed and agree them. Prior/external medical records reviewed Vital Signs: reviewed Differential diagnosis: Infection, hypoglycemia, electrolyte abnormalities, overdose, toxicologic, cardiac sources, intracerebral event, neurologic, trauma, as well as other pathologies. ER treatment provided: See below. Diagnostics interpreted by me: ECG: Normal sinus rhythm, 66 bpm, no ectopy, no overt ST elevation or depression, QTc 444, QRS 88. Cardiac Monitoring: An order for continuous cardiac monitoring was placed and demonstrated Normal sinus rhythm, 66 bpm, no ectopy Laboratory studies: See below Imaging studies: See below Consultation(s): Case was discussed with Dr. Kasper, [facility] hospitalist who will evaluate the patient for admission. HPI: The patient is a pleasant 78 year-old woman with a past medical history of diastolic heart failure, COPD, GAURAV, paroxysmal atrial fibrillation on Eliquis, hypertension, hyperlipidemia, hypothyroidism who presents emerged department via EMS and accompanied by her daughter for concern for confusion from her baseline which she exhibited last night when she was waking up in the middle of the night and was speaking to her sister who was not there and was also noted to be "feeding cats" and had found crumbs of crackers on the floor. The patient ports she recalls feeding the cats because they were "in the house" which the daughter confirms was not the case. They suspect that she may have a UTI as this was the case on her prior similar episode. They deny any cough, congestion, GI symptoms otherwise. ROS: See above HPI for pertinent positives & negatives. A total of 10 systems reviewed and were otherwise negative. VITALS:See Below PHYSICAL EXAMINATION: GENERAL: Awake, alert, in no distress, BMI 38.8. HENT: Normocephalic, atraumatic. Oropharynx with dry mucous membranes and otherwise unremarkable. EYES: Normal conjunctiva. Sclera non-icteric. NECK: Supple. No nuchal rigidity. FROM. No JVD. RESPIRATORY: Clear to auscultation. CARDIAC: Regular rate, normal rhythm. Extremities warm and well perfused. Pulses equal. ABDOMEN: Soft, non-distended. No tenderness to palpation. No rebound or guarding. No masses. MUSCULOSKELETAL: Chest examination reveals no tenderness. The back is symmetrical on inspection without obvious abnormality. There is no CVA tenderness to palpation. No joint edema. LOWER EXTREMITIES: Calves are equal size bilaterally and non-tender. No edema. No discoloration. NEURO: Normal sensorium. No sensory or motor deficits noted. SKIN: No rash or jaundice noted. Umair Merritt MD Past Med/Surg History Problem List On apixaban therapy (Acute) Acute confusion (Acute) Elevated troponin (Acute) Acute dehydration (Acute) Atrial fibrillation with rapid ventricular response (Acute) Elevated LFTs (Acute) Acute UTI (Acute) Volume depletion Diastolic heart failure Elevated LFTs GAURAV on CPAP Dyspnea Bronchitis, acute Cough Asthma (Chronic) Weakness (Acute) Dehydration (Acute) Chest pain (Acute 08/17/14) Palpitations (Acute) Nausea (Acute) Diabetes mellitus, type II (Chronic) Hypertension (Chronic) Paroxysmal atrial fibrillation (Chronic) Hypothyroidism (Chronic) Spinal stenosis of lumbar region (Chronic) Dyslipidemia (Chronic) Statin intolerance (Chronic) Pulmonary nodules (Chronic) GERD (gastroesophageal reflux disease) (Chronic) Previous back surgery H/O shoulder surgery Status post appendectomy Status post tonsillectomy S/P TKR (total knee replacement) Surgical History Hx of cholecystectomy Family History Mother Coronary heart disease CHF (congestive heart failure) Father Stroke Daughter Hypertension Other Lung cancer Social History Smoking Status: Unknown if ever smoked packs per day: 0.5; Second Hand Exposure: No; Do You Dip or Chew Tobacco: No; Hx Alcohol Use: No Hx Substance Use: No Preferred Language: Cameroonian Communication Ability: Effective Tank Calibrator Required: No Beliefs That Will Affect Care: None marital status: / Current Living Situation: Family Current Living Situation Comment: Lives with daughter Other Information That Helps Us Care for You: No Feels Safe at Home: Yes Assistive Devices: Walker Allergies Allergies Allergy/AdvReac Type Severity Reaction Status Date / Time Iodinated Contrast Media Allergy Intermediate HIVES Verified 04/15/24 20:09 iodine Allergy Intermediate Hives Verified 04/15/24 20:09 latex Allergy Intermediate LOCAL SKIN Verified 04/15/24 20:09 IRRITATION lidocaine Allergy Intermediate lidocaine Verified 04/15/24 20:09 patch-skin red,hot flushed feeling nitrofurantoin Allergy Mild RASH Verified 04/15/24 20:09 metformin Allergy Unknown ON Verified 04/15/24 20:09 Shortcut Labs MED LIST codeine AdvReac Intermediate N&V Verified 04/15/24 20:09 propoxyphene AdvReac Intermediate NAUSEA AND Verified 04/15/24 20:09 VOMITING [id number]-IjW Reductase AdvReac Intermediate LEG CRAMPS Verified 04/15/24 20:09 Inhibitor [Qjnnitp-Uvk-Wbo Reductase Inhibitor] Home Meds Home Medications Medication Instructions Recorded Confirmed irbesartan 150 mg tablet 150 mg PO DAILY 02/12/19 04/15/24 albuterol sulfate 90 mcg/actuation 2 puff inhalation Q6H PRN 06/12/19 04/15/24 aerosol inhaler Shortness Of Breath Or Wheezing #1 g polyethylene glycol 3350 17 gram 17 gm PO HS PRN Constipation 12/11/19 04/15/24 oral powder packet (Miralax) sertraline 100 mg tablet 100 - 200 mg PO DAILY 12/11/19 04/15/24 acetaminophen 650 mg 650 mg PO Q8H PRN pain 12/13/22 04/15/24 tablet,extended release cyanocobalamin (vitamin B-12) 1,000 mcg IM MONTHLY 12/13/22 04/15/24 1,000 mcg/mL injection kit dulaglutide 0.75 mg/0.5 mL 0.75 mg subcut WK 12/13/22 04/15/24 subcutaneous pen injector ([facility]) fluticasone propionate 50 2 spray intranasal DAILY 12/13/22 04/15/24 mcg/actuation nasal spray,suspension levothyroxine 150 mcg tablet 150 mcg PO DAILYBB 12/13/22 04/15/24 loratadine 10 mg tablet 10 mg PO DAILY 12/13/22 04/15/24 Relaxium Sleep Suppliment 1 - 2 tab PO HS PRN Sleep 12/02/23 12/02/23 alprazolam 0.5 mg tablet 0.5 mg PO BID 12/02/23 04/15/24 docusate sodium 100 mg capsule 200 mg PO HS PRN Constipation 12/02/23 04/15/24 loteprednol etabonate 0.5 % eye 1 drp OPB BID 12/02/23 04/15/24 drops,suspension olopatadine 0.1 % eye drops 1 drp OPB BID 12/02/23 04/15/24 ondansetron HCl 4 mg tablet 4 mg PO Q6H PRN NAUSEA/VOMITING 12/02/23 04/15/24 pantoprazole 20 mg tablet,delayed 20 mg PO BID 12/02/23 04/15/24 release ezetimibe 10 mg tablet 10 mg PO DAILY 04/15/24 04/15/24 hydrochlorothiazide 12.5 mg tablet 12.5 mg PO DAILY 04/15/24 04/15/24 rosuvastatin 10 mg tablet 10 mg PO DAILY 04/15/24 04/15/24 Previous Rx's Medication Instructions Recorded apixaban 5 mg tablet (Eliquis) 5 mg PO BID #60 tabs 12/07/23 metoprolol succinate 25 mg 75 mg (3 x 25 mg) PO BID #180 tabs 12/07/23 tablet,extended release 24 hr Results & Data (ED) Vital Signs Vital Signs - 24 hr 04/15/24 17:17 04/15/24 17:17 04/15/24 19:12 Temperature 36.4 C L 36.4 C L Temperature Source Oral Oral Pulse Rate 70 68 Pulse Rate [Apical] 68 Pulse Rhythm Regular Pulse Rhythm [Apical] Regular Pulse Strength Normal Pulse Strength [Apical] Normal Respiratory Rate 20 20 26 H Respiratory Effort / Characteristics Non-Labored Spontaneous Non-Labored Spontaneous Respiratory Depth Normal Normal Respiratory Pattern Regular Regular Blood Pressure 197/86 H Blood Pressure [Left Arm] 197/86 H Blood Pressure Mean 123 Blood Pressure Mean [Left Arm] 123 Blood Pressure Position Lying Blood Pressure Position [Left Arm] Lying Pulse Oximetry 95 97 Oxygen Delivery Method Room Air Room Air Sepsis Recent Fever Within 48 Hours No Sepsis New/Unexplained Change in Mental Status Yes Sepsis Action Taken by Nursing No Action Required 04/15/24 19:14 04/15/24 19:14 04/15/24 19:14 Temperature Temperature Source Pulse Rate Pulse Rate [Apical] Pulse Rhythm Pulse Rhythm [Apical] Pulse Strength Pulse Strength [Apical] Respiratory Rate Respiratory Effort / Characteristics Respiratory Depth Respiratory Pattern Blood Pressure 181/86 H 181/86 H 181/86 H Blood Pressure [Left Arm] Blood Pressure Mean 128 128 128 Blood Pressure Mean [Left Arm] Blood Pressure Position Blood Pressure Position [Left Arm] Pulse Oximetry Oxygen Delivery Method Sepsis Recent Fever Within 48 Hours Sepsis New/Unexplained Change in Mental Status Sepsis Action Taken by Nursing 04/15/24 19:14 04/15/24 19:14 04/15/24 20:00 Temperature Temperature Source Pulse Rate 76 Pulse Rate [Apical] Pulse Rhythm Pulse Rhythm [Apical] Pulse Strength Pulse Strength [Apical] Respiratory Rate 27 H Respiratory Effort / Characteristics Respiratory Depth Respiratory Pattern Blood Pressure 181/86 H 181/86 H Blood Pressure [Left Arm] Blood Pressure Mean 128 128 Blood Pressure Mean [Left Arm] Blood Pressure Position Blood Pressure Position [Left Arm] Pulse Oximetry Oxygen Delivery Method Sepsis Recent Fever Within 48 Hours Sepsis New/Unexplained Change in Mental Status Sepsis Action Taken by Nursing 04/15/24 20:00 04/15/24 20:29 04/15/24 20:30 Temperature 36.6 C Temperature Source Oral Pulse Rate 72 Pulse Rate [Apical] 73 Pulse Rhythm Pulse Rhythm [Apical] Regular Pulse Strength Pulse Strength [Apical] Normal Respiratory Rate 19 Respiratory Effort / Characteristics Non-Labored Respiratory Depth Normal Respiratory Pattern Regular Blood Pressure 163/90 H Blood Pressure [Left Arm] 156/83 H Blood Pressure Mean 114 Blood Pressure Mean [Left Arm] 107 Blood Pressure Position Blood Pressure Position [Left Arm] Lying Pulse Oximetry 95 Oxygen Delivery Method Room Air Sepsis Recent Fever Within 48 Hours Sepsis New/Unexplained Change in Mental Status Sepsis Action Taken by Nursing Laboratory Data Attestation: I reviewed the patient's lab results. 04/15/24 17:34 04/15/24 17:34 Lab Results 04/15/24 04/15/24 04/15/24 Range/Units 17:26 17:34 18:32 WBC 8.52 (4.8-10.8) K/ul RBC 4.48 (4.20-5.40) M/uL Hgb 14.2 (12.0-16.0) g/dl Hct 41.4 (37.0-47.0) % MCV 92.4 (80.0-100.0) fL MCH 31.7 (25.0-34.0) pg MCHC 34.3 (32.0-36.0) g/dL RDW Std Deviation 43.8 (36.4-46.3) fL RDW Coeff of Anne 12.8 (11.5-14.5) % Plt Count 231 (130-400) K/uL MPV 9.4 (9.4-12.4) fL Immature Gran % (Auto) 1.5 % Neut % (Auto) 65.9 % Lymph % (Auto) 20.0 % Johnson % (Auto) 7.5 % Eos % (Auto) 4.7 % Baso % (Auto) 0.4 % Neut # (Auto) 5.62 (1.40-6.50) K/uL Lymph # (Auto) 1.70 (1.20-3.40) K/uL Johnson # (Auto) 0.64 H (0.11-0.59) K/uL Eos # (Auto) 0.40 (0.00-0.50) K/uL Baso # (Auto) 0.03 (0.00-0.20) K/uL Immature Gran # (Auto) 0.13 (0.01-0.20) K/uL PT 11.2 (9.0-12.0) Seconds INR 1.0 (0.9-1.1) VBG pH (7.36-7.41) VBG pCO2 (38-50) mmHg VBG pO2 mmHg VBG HCO3 mmol/L VBG O2 Saturation % VBG Base Excess mEq/L Sodium 136 (136-145) mmol/L Potassium 4.1 (3.5-5.1) mmol/L Chloride 103 (98-107) mmol/L Carbon Dioxide 27 (21-32) mmol/L Anion Gap 6 (3-11) BUN 20 (6-23) mg/dl Creatinine 0.92 (0.6-1.2) mg/dl Est Cr Clr Drug Dosing 52.8 ml/min eGFR 62.94 BUN/Creatinine Ratio 21.7 H (10-20) Glucose 102 H (70-99(Fasting)) mg/dl Calcium 9.3 (8.6-10.3) mg/dl Magnesium 2.3 (1.7-2.4) mg/dl Total Bilirubin 0.7 (0.2-1.0) mg/dl AST 17 (13-39) U/L ALT 14 (7-52) U/L Alkaline Phosphatase 91 (34-104) U/L Troponin I High Sens 6.8 (0-14) pg/ml B-Natriuretic Peptide (0-100) pg/ml Total Protein 7.4 (6.0-8.3) gm/dl Albumin 4.0 (3.4-5.0) gm/dl Globulin 3.4 (2.5-4.0) gm/dl Albumin/Globulin Ratio 1.2 (0.9-2) Lipase 28 (11-82) U/L TSH 4.212 (0.300-4.500) uIu/ml Urine Color Yellow Urine Appearance Clear (Clear) Urine pH 8.5 H (4.5-7.5) Ur Specific Blanco 1.010 (1.000-1.030) Urine Protein Negative (Negative) Urine Glucose (UA) Negative (Negative) Urine Ketones Negative (Negative) Urine Blood Negative (Negative) Urine Nitrite Negative (Negative) Urine Bilirubin Negative (Negative) Urine Urobilinogen Negative (Negative) Ur Leukocyte Esterase Negative (Negative) Adenovirus (PCR) Not Detected (NotDetected) B. pertussis DNA (PCR) Not Detected (NotDetected) B.parapertussis DNA PCR Not Detected (NotDetected) C. pneumoniae DNA (PCR) Not Detected (NotDetected) Coronavirus OC43 (PCR) Not Detected (NotDetected) Coronavirus HKU1 (PCR) Not Detected (NotDetected) Coronavirus 229E (PCR) Not Detected (NotDetected) SARS-CoV-2 (PCR) Not Detected (NotDetected) Coronavirus NL63 (PCR) Not Detected (NotDetected) Human Metapneumovir PCR Not Detected (NotDetected) Influenza Type A (PCR) Not Detected (NotDetected) Influenza Type B (PCR) Not Detected (NotDetected) M. pneumoniae (PCR) Not Detected (NotDetected) Parainfluenza 1 (PCR) Not Detected (NotDetected) Parainfluenza 2 (PCR) Not Detected (NotDetected) Parainfluenza 3 (PCR) Not Detected (NotDetected) Parainfluenza 4 (PCR) Not Detected (NotDetected) RSV (PCR) Not Detected (NotDetected) Entero/Rhino (PCR) Not Detected (NotDetected) 04/15/24 04/15/24 Range/Units 18:46 18:47 WBC (4.8-10.8) K/ul RBC (4.20-5.40) M/uL Hgb (12.0-16.0) g/dl Hct (37.0-47.0) % MCV (80.0-100.0) fL MCH (25.0-34.0) pg MCHC (32.0-36.0) g/dL RDW Std Deviation (36.4-46.3) fL RDW Coeff of Anne (11.5-14.5) % Plt Count (130-400) K/uL MPV (9.4-12.4) fL Immature Gran % (Auto) % Neut % (Auto) % Lymph % (Auto) % Johnson % (Auto) % Eos % (Auto) % Baso % (Auto) % Neut # (Auto) (1.40-6.50) K/uL Lymph # (Auto) (1.20-3.40) K/uL Johnson # (Auto) (0.11-0.59) K/uL Eos # (Auto) (0.00-0.50) K/uL Baso # (Auto) (0.00-0.20) K/uL Immature Gran # (Auto) (0.01-0.20) K/uL PT (9.0-12.0) Seconds INR (0.9-1.1) VBG pH 7.41 (7.36-7.41) VBG pCO2 46 (38-50) mmHg VBG pO2 40 mmHg VBG HCO3 29 mmol/L VBG O2 Saturation 70.4 % VBG Base Excess 3.8 mEq/L Sodium (136-145) mmol/L Potassium (3.5-5.1) mmol/L Chloride (98-107) mmol/L Carbon Dioxide (21-32) mmol/L Anion Gap (3-11) BUN (6-23) mg/dl Creatinine (0.6-1.2) mg/dl Est Cr Clr Drug Dosing ml/min eGFR BUN/Creatinine Ratio (10-20) Glucose (70-99(Fasting)) mg/dl Calcium (8.6-10.3) mg/dl Magnesium (1.7-2.4) mg/dl Total Bilirubin (0.2-1.0) mg/dl AST (13-39) U/L ALT (7-52) U/L Alkaline Phosphatase (34-104) U/L Troponin I High Sens (0-14) pg/ml B-Natriuretic Peptide 138 H (0-100) pg/ml Total Protein (6.0-8.3) gm/dl Albumin (3.4-5.0) gm/dl Globulin (2.5-4.0) gm/dl Albumin/Globulin Ratio (0.9-2) Lipase (11-82) U/L TSH (0.300-4.500) uIu/ml Urine Color Urine Appearance (Clear) Urine pH (4.5-7.5) Ur Specific Blanco (1.000-1.030) Urine Protein (Negative) Urine Glucose (UA) (Negative) Urine Ketones (Negative) Urine Blood (Negative) Urine Nitrite (Negative) Urine Bilirubin (Negative) Urine Urobilinogen (Negative) Ur Leukocyte Esterase (Negative) Adenovirus (PCR) (NotDetected) B. pertussis DNA (PCR) (NotDetected) B.parapertussis DNA PCR (NotDetected) C. pneumoniae DNA (PCR) (NotDetected) Coronavirus OC43 (PCR) (NotDetected) Coronavirus HKU1 (PCR) (NotDetected) Coronavirus 229E (PCR) (NotDetected) SARS-CoV-2 (PCR) (NotDetected) Coronavirus NL63 (PCR) (NotDetected) Human Metapneumovir PCR (NotDetected) Influenza Type A (PCR) (NotDetected) Influenza Type B (PCR) (NotDetected) M. pneumoniae (PCR) (NotDetected) Parainfluenza 1 (PCR) (NotDetected) Parainfluenza 2 (PCR) (NotDetected) Parainfluenza 3 (PCR) (NotDetected) Parainfluenza 4 (PCR) (NotDetected) RSV (PCR) (NotDetected) Entero/Rhino (PCR) (NotDetected) Administered Medications Apixaban (Apixaban 5 Mg Tablet) 5 mg PO BID [facility] Stop: 05/15/24 20:59 Last Admin: 04/16/24 01:07 Dose: 5 mg Documented By: GIANNA Insulin Aspart (Insulin Aspart Per Unit Charge) 0 units SC ACHS KATHRYN Stop: 05/15/24 22:53 Last Admin: 04/15/24 23:15 Dose: Not Given Documented By: GIANNA Pantoprazole Sodium (Pantoprazole 40 Mg Tab) 40 mg PO BID [facility] Stop: 05/15/24 20:59 Last Admin: 04/16/24 01:07 Dose: 40 mg Documented By: GIANNA Discontinued Medications Albumin Human (Albumin 25%) 12.5 gm in 50 mls @ 50 mls/hr IV ONE ONE Stop: 04/15/24 22:36 Last Infusion: 04/16/24 00:12 Dose: Infused Documented By: Admin: 04/15/24 23:12 Dose: 50 mls/hr Documented By: GIANNA Metoprolol Tartrate (Metoprolol Tartrate 1 Mg/Ml Vial) 2.5 mg IV NOW STA Stop: 04/15/24 19:28 Last Admin: 04/15/24 20:31 Dose: 2.5 mg Documented By: KYLE Imaging Data Radiologist's Impression: Chest X-Ray 04/15/24 18:07 XR chest 1V portable HISTORY: 78 years-old Female Chest pain, nonspecific COMPARISON: 12/02/2023 TECHNIQUE: AP view the chest FINDINGS: Cardiac silhouette is enlarged. Pulmonary vascular congestion with chronic interstitial coarsening. No pneumothorax, large pleural effusion or lobar airspace consolidation. Spondylitic spurring of the spine. IMPRESSION: Cardiomegaly with pulmonary vascular congestion. ACT 112: Negative or not required by law. The above report was generated using voice recognition software. It may contain grammatical, syntax or spelling errors. Electronically signed by: Greyson Sarabia M.D. 04/15/2024 6:[address] 04/15/24 18:29 Exam(s): CT HEAD Without Contrast EXAM: CT Head Without Intravenous Contrast CLINICAL HISTORY: Reason for exam: confusion. TECHNIQUE: Axial computed tomography images of the head/brain without intravenous contrast. CTDI is 68.24 mGy and DLP is 1100.35 mGy-cm. Automated exposure control was utilized for the study. A dose lowering technique was utilized adhering to the principles of ALARA. COMPARISON: CT head on 12/13/2022 FINDINGS: Brain: No acute infarct or hemorrhage identified. No extra-axial fluid collection. No mass effect or midline shift. Scattered areas of hypoattenuation in the supratentorial white matter likely represent chronic small vessel ischemic changes. Ventricles and sulci: Prominence of the ventricles and sulci is likely secondary to cerebral volume loss. Bones: Mild hyperostosis frontalis interna. No bony lesion or acute fracture. Subcutaneous tissues: Normal. Sinuses: Mild mucosal thickening in the maxillary sinuses and ethmoid air cells. Mastoid air cells: Normal. Orbits: Bilateral lens implants. Other: Atherosclerotic calcifications in the intracranial vasculature. IMPRESSION: 1. No acute intracranial abnormality. 2. Chronic small vessel ischemic changes and cerebral volume loss. Electronically signed by: Julian Harding M.D. 04/15/24 20:16 PM Discharge Plan Visit Data Chief Complaint: Urinary Symptoms ED Provider: Umair Merritt Discharge Problem: Acute confusion, Hypertension, On apixaban therapy Patient Disposition: Home - Self-Care Discharge Instructions Interventions: ED Discharge Assessment Last Done: 04/15/24 22:50 Discharge Problem: Hypertension Qualifiers: Hypertension type: unspecified Qualified Code(s): I10 - Essential (primary) hypertension
[2024-04-15 18:43] LABS: Basophils # (auto) 0.03 K/uL (0.00-0.20); Basophils % (auto) 0.4 %; Eosinophils % (auto) 4.7 %; Hematocrit (blood only) 41.4 % (37.0-47.0); Hemoglobin 14.2 g/dl (12.0-16.0); Immature Granulocytes # (auto) 0.13 K/uL (0.01-0.20); Immature Granulocytes % (auto) 1.5 %; Mean Corpuscular Hemoglobin 31.7 pg (25.0-34.0); Mean Corpuscular Hgb Conc 34.3 g/dL (32.0-36.0); Mean Corpuscular Volume 92.4 fL (80.0-100.0); Mean Platelet Volume 9.4 fL (9.4-12.4); Monocytes # (auto) 0.64 K/uL (0.11-0.59); Monocytes % (auto) 7.5 %; Neutrophils # (auto) 5.62 K/uL (1.40-6.50); Neutrophils % (auto) 65.9 %; Platelet Count 231 K/uL (130-400); RDW Coefficient of Variation 12.8 % (11.5-14.5); RDW Standard Deviation 43.8 fL (36.4-46.3); Red Blood Count 4.48 M/uL (4.20-5.40); White Blood Count 8.52 K/ul (4.8-10.8)
[2024-04-15 18:56] LABS: Base Excess VBG 3.8 mEq/L; HCO3 VBG 29 mmol/L; Oxygen Saturation VBG 70.4 %; PCO2 VBG 46 mmHg (38-50); PO2 VBG 40 mmHg; pH VBG 7.41 (7.36-7.41)
[2024-04-15 18:57] LABS: Albumin Globulin Ratio 1.2 (0.9-2); BUN Creatinine Ratio 21.7 (10-20); Bilirubin,Total 0.7 mg/dl (0.2-1.0); Calcium 9.3 mg/dl (8.6-10.3); Creatinine Clr Calc Pharmacy 52.8 ml/min; Globulin 3.4 gm/dl (2.5-4.0); Magnesium 2.3 mg/dl (1.7-2.4); Potassium 4.1 mmol/L (3.5-5.1); Total Protein 7.4 gm/dl (6.0-8.3)
[2024-04-15 19:03] LABS: Troponin I High Sensitivity 6.8 pg/ml (0-14)
[2024-04-15 19:13] LABS: Thyroid Stimulating Hormone 4.212 uIu/ml (0.300-4.500)
[2024-04-15 19:35] LABS: Prothrombin Time 11.2 Seconds (9.0-12.0)
[2024-04-15 19:36] LABS: Adenovirus PCR Not Detected (NotDetected); Bordetella parapertussis PCR Not Detected (NotDetected); Bordetella pertussis PCR Not Detected (NotDetected); Chlamydia pneumoniae PCR Not Detected (NotDetected); Coronavirus 229E PCR Not Detected (NotDetected); Coronavirus CoV-2 (COVID19)PCR Not Detected (NotDetected); Coronavirus HKU1 PCR Not Detected (NotDetected); Coronavirus NL63 PCR Not Detected (NotDetected); Coronavirus OC43PCR Not Detected (NotDetected); Human Metapneumovirus PCR Not Detected (NotDetected); Influenza A PCR Not Detected (NotDetected); Influenza B PCR Not Detected (NotDetected); Mycoplasma pneumoniae PCR Not Detected (NotDetected); Parainfluenza Virus 1 PCR Not Detected (NotDetected); Parainfluenza Virus 2 PCR Not Detected (NotDetected); Parainfluenza Virus 3 PCR Not Detected (NotDetected); Parainfluenza Virus 4 PCR Not Detected (NotDetected); Respiratory Syncytial VirusPCR Not Detected (NotDetected); Rhinovirus/Enterovirus PCR Not Detected (NotDetected)
--- NOTE | 2024-04-15 20:05 | History & Physical Report ---
Date of Service April 15, 2024 Assessment & Plan (1) Delirium: Plan: Multifactorial Uncontrolled hypertension as precipitant Neuropsychotropic medications possibly contributory chronic diastolic heart failure (EF 60 to 65%, TTE 2023), some congestion on x-ray, patient asymptomatic A-fib on Eliquis hyperlipidemia, statin intolerance GAURAV CPAP intolerance DM2 on oral medications, well-controlled as of recent hemoglobin A1c of 6.25 November 2023 hypothyroidism, euthyroid as of today's TSH past tobacco abuse OBS Medical telemetry Titrate home BP meds Hold neuropsychotropic medications for now May need to be weaned off Xanax if delirium persists ISS BG goal 1 10-1 40, carb count coverage PT OT eval DVT prophylaxis. Eliquis Full code Patient daughter requesting updates providers. Mr. Yanci Adkins, contact #[phone]. Text document was generated using [employer] voice recognition software. It may contain grammatical or spelling errors. Kindly contact undersigned for clarification of any documentation item in question. History of Present Illness Chief Complaint: Hallucinations as per family Primary Care Provider: Rosemary Valentine MD History obtained from patient, family, and records. Patient is a fair historian. Medical history significant for chronic diastolic heart failure (EF 60 to 65%, TTE 2023), A-fib on Eliquis, hypertension, hyperlipidemia, statin intolerance, GAURAV CPAP intolerance, DM2 on oral medications, hypothyroidism, migraine, anxiety/mood disorder, past tobacco abuse. Last confinement November 2023 for transaminitis and possible UTI. Patient noted to be confused by family since yesterday. Patient talking to her sister who she thinks is in the room with her as per daughter. Today she was seeing cats that they did not have at home. Patient denies headache, chest pain, SOB, abdominal pain. No new medications. SBP 190s upon arrival at the ER. Medical History as above Surgical History : Cataract surgeries, appendectomy, right oophorectomy, tonsillectomy/adenectomy, knee surgery Family History : Colon cancer, heart disease, lung cancer, stroke Personal/Social history : Past tobacco abuse, no EtOH intake, retired from residential work. Allergies Allergy/AdvReac Type Severity Reaction Status Date / Time Iodinated Contrast Media Allergy Intermediate HIVES Verified 04/15/24 20:09 iodine Allergy Intermediate Hives Verified 04/15/24 20:09 latex Allergy Intermediate LOCAL SKIN Verified 04/15/24 20:09 IRRITATION lidocaine Allergy Intermediate lidocaine Verified 04/15/24 20:09 patch-skin red,hot flushed feeling nitrofurantoin Allergy Mild RASH Verified 04/15/24 20:09 metformin Allergy Unknown ON Verified 04/15/24 20:09 [employer] MED LIST codeine AdvReac Intermediate N&V Verified 04/15/24 20:09 propoxyphene AdvReac Intermediate NAUSEA AND Verified 04/15/24 20:09 VOMITING Csowqgu-EAK-NsD Reductase AdvReac Intermediate LEG CRAMPS Verified 04/15/24 20: 09 Inhibitor [Kapjzim-Bhy-Knn Reductase Inhibitor] Home Medications Medication Instructions Recorded Confirmed Type irbesartan 150 mg tablet 150 mg PO DAILY 02/12/19 04/15/24 History albuterol sulfate 90 mcg/actuation 2 puff inhalation Q6H PRN 06/12/19 04/15/24 History aerosol inhaler Shortness Of Breath Or Wheezing #1 g polyethylene glycol 3350 17 gram 17 gm PO HS PRN Constipation 12/11/19 04/15/24 History oral powder packet (Miralax) sertraline 100 mg tablet 100 - 200 mg PO DAILY 12/11/19 04/15/24 History acetaminophen 650 mg 650 mg PO Q8H PRN pain 12/13/22 04/15/24 History tablet,extended release cyanocobalamin (vitamin B-12) 1,000 mcg IM MONTHLY 12/13/22 04/15/24 History 1,000 mcg/mL injection kit dulaglutide 0.75 mg/0.5 mL 0.75 mg subcut WK 12/13/22 04/15/24 History [facility] fluticasone propionate 50 2 spray intranasal DAILY 12/13/22 04/15/24 History mcg/actuation nasal spray,suspension levothyroxine 150 mcg tablet 150 mcg PO DAILYBB 12/13/22 04/15/24 History loratadine 10 mg tablet 10 mg PO DAILY 12/13/22 04/15/24 History Relaxium Sleep Suppliment 1 - 2 tab PO HS PRN Sleep 12/02/23 12/02/23 History alprazolam 0.5 mg tablet 0.5 mg PO BID 12/02/23 04/15/24 History docusate sodium 100 mg capsule 200 mg PO HS PRN Constipation 12/02/23 04/15/24 History loteprednol etabonate 0.5 % eye 1 drp OPB BID 12/02/23 04/15/24 History drops,suspension olopatadine 0.1 % eye drops 1 drp OPB BID 12/02/23 04/15/24 History ondansetron HCl 4 mg tablet 4 mg PO Q6H PRN NAUSEA/VOMITING 12/02/23 04/15/24 History pantoprazole 20 mg tablet,delayed 20 mg PO BID 12/02/23 04/15/24 History release apixaban 5 mg tablet (Eliquis) 5 mg PO BID #60 tabs 12/07/23 04/15/24 Rx metoprolol succinate 25 mg 75 mg (3 x 25 mg) PO BID #180 tabs 12/07/23 04/15/24 Rx tablet,extended release 24 hr ezetimibe 10 mg tablet 10 mg PO DAILY 04/15/24 04/15/24 History hydrochlorothiazide 12.5 mg tablet 12.5 mg PO DAILY 04/15/24 04/15/24 History rosuvastatin 10 mg tablet 10 mg PO DAILY 04/15/24 04/15/24 History Past Med/Surg History Problem List Delirium On apixaban therapy (Acute) Acute confusion (Acute) Elevated troponin (Acute) Acute dehydration (Acute) Atrial fibrillation with rapid ventricular response (Acute) Elevated LFTs (Acute) Acute UTI (Acute) Volume depletion Diastolic heart failure Elevated LFTs GAURAV on CPAP Dyspnea Bronchitis, acute Cough Asthma (Chronic) Weakness (Acute) Dehydration (Acute) Chest pain (Acute 08/17/14) Palpitations (Acute) Nausea (Acute) Diabetes mellitus, type II (Chronic) Hypertension (Chronic) Paroxysmal atrial fibrillation (Chronic) Hypothyroidism (Chronic) Spinal stenosis of lumbar region (Chronic) Dyslipidemia (Chronic) Statin intolerance (Chronic) Pulmonary nodules (Chronic) GERD (gastroesophageal reflux disease) (Chronic) Previous back surgery H/O shoulder surgery Status post appendectomy Status post tonsillectomy S/P TKR (total knee replacement) Surgical History Hx of cholecystectomy Family History Mother Coronary heart disease CHF (congestive heart failure) Father Stroke Daughter Hypertension Other Lung cancer Social History Smoking Status: Unknown if ever smoked packs per day: 0.5; Second Hand Exposure: No; Do You Dip or Chew Tobacco: No; Hx Alcohol Use: No Hx Substance Use: No Preferred Language: Yakut Communication Ability: Effective Cd Mixer Helper Required: No Beliefs That Will Affect Care: None marital status: / Current Living Situation: Family Current Living Situation Comment: Lives with daughter Other Information That Helps Us Care for You: No Feels Safe at Home: Yes Assistive Devices: Walker Review of Systems Review of Systems: As per HPI, all other systems reviewed and negative Physical Exam Physical Exam: GENERAL: Oriented to year, obese, slightly uncomfortable, no respiratory distress SKIN: Normal color, warm HEENT: Clutier palpebral conjunctivae, no ptosis, dry buccal mucosa NECK : Supple, no tenderness CHEST : Decreased breath sounds, no tenderness HEART : RRR, no obvious murmurs ABDOMEN: Some distention, nontender EXTREMITIES : Minimal LE swelling, no LE tenderness, no other conspicuous deformities noted NEUROLOGIC : Oriented to year , no facial asymmetry, gait and stance not assessed Results & Data Results & Data Vital Signs (Past 12 Hours) Vital Signs Temp Pulse Pulse Resp BP BP Pulse Ox 04/15/24 17:17 36.4 C L 68 20 197/86 H 97 04/15/24 17:17 36.4 C L 70 20 197/86 H 95 O2 Del Method 04/15/24 17:17 Room Air 04/15/24 17:17 Room Air Laboratory Results Laboratory Results WBC 8.52 K/ul (4.8-10.8) 04/15/24 17:34 RBC 4.48 M/uL (4.20-5.40) 04/15/24 17:34 Hgb 14.2 g/dl (12.0-16.0) 04/15/24 17:34 Hct 41.4 % (37.0-47.0) 04/15/24 17:34 MCV 92.4 fL (80.0-100.0) 04/15/24 17:34 MCH 31.7 pg (25.0-34.0) 04/15/24 17:34 MCHC 34.3 g/dL (32.0-36.0) 04/15/24 17:34 RDW Std Deviation 43.8 fL (36.4-46.3) 04/15/24 17:34 RDW Coeff of Anne 12.8 % (11.5-14.5) 04/15/24 17:34 Plt Count 231 K/uL (130-400) 04/15/24 17:34 MPV 9.4 fL (9.4-12.4) 04/15/24 17:34 Immature Gran % (Auto) 1.5 % 04/15/24 17:34 Neut % (Auto) 65.9 % 04/15/24 17:34 Lymph % (Auto) 20.0 % 04/15/24 17:34 Evans % (Auto) 7.5 % 04/15/24 17:34 Eos % (Auto) 4.7 % 04/15/24 17:34 Baso % (Auto) 0.4 % 04/15/24 17:34 Neut # (Auto) 5.62 K/uL (1.40-6.50) 04/15/24 17:34 Lymph # (Auto) 1.70 K/uL (1.20-3.40) 04/15/24 17:34 Evans # (Auto) 0.64 K/uL (0.11-0.59) H 04/15/24 17:34 Eos # (Auto) 0.40 K/uL (0.00-0.50) 04/15/24 17:34 Baso # (Auto) 0.03 K/uL (0.00-0.20) 04/15/24 17:34 Immature Gran # (Auto) 0.13 K/uL (0.01-0.20) 04/15/24 17:34 PT 11.2 Seconds (9.0-12.0) 04/15/24 17:34 INR 1.0 (0.9-1.1) 04/15/24 17:34 VBG pH 7.41 (7.36-7.41) 04/15/24 18:46 VBG pCO2 46 mmHg (38-50) 04/15/24 18:46 VBG pO2 40 mmHg 04/15/24 18:46 VBG HCO3 29 mmol/L 04/15/24 18:46 VBG O2 Saturation 70.4 % 04/15/24 18:46 VBG Base Excess 3.8 mEq/L 04/15/24 18:46 Sodium 136 mmol/L (136-145) 04/15/24 17:34 Potassium 4.1 mmol/L (3.5-5.1) 04/15/24 17:34 Chloride 103 mmol/L (98-107) 04/15/24 17:34 Carbon Dioxide 27 mmol/L (21-32) 04/15/24 17:34 Anion Gap 6 (3-11) 04/15/24 17:34 BUN 20 mg/dl (6-23) 04/15/24 17:34 Creatinine 0.92 mg/dl (0.6-1.2) 04/15/24 17:34 Est Cr Clr Drug Dosing 52.8 ml/min 04/15/24 17:34 eGFR 62.94 04/15/24 17:34 BUN/Creatinine Ratio 21.7 (10-20) H 04/15/24 17:34 Glucose 102 mg/dl (70-99(Fasting)) H 04/15/24 17:34 Calcium 9.3 mg/dl (8.6-10.3) 04/15/24 17:34 Magnesium 2.3 mg/dl (1.7-2.4) 04/15/24 17:34 Total Bilirubin 0.7 mg/dl (0.2-1.0) 04/15/24 17:34 AST 17 U/L (13-39) 04/15/24 17:34 ALT 14 U/L (7-52) 04/15/24 17:34 Alkaline Phosphatase 91 U/L (34-104) 04/15/24 17:34 Troponin I High Sens 6.8 pg/ml (0-14) 04/15/24 17:34 Total Protein 7.4 gm/dl (6.0-8.3) 04/15/24 17:34 Albumin 4.0 gm/dl (3.4-5.0) 04/15/24 17:34 Globulin 3.4 gm/dl (2.5-4.0) 04/15/24 17:34 Albumin/Globulin Ratio 1.2 (0.9-2) 04/15/24 17:34 Lipase 28 U/L (11-82) 04/15/24 17:34 TSH 4.212 uIu/ml (0.300-4.500) 04/15/24 17:34 Urine Color Yellow 04/15/24 17:26 Urine Appearance Clear (Clear) 04/15/24 17: Urine pH 8.5 (4.5-7.5) H 04/15/24 17: Ur Specific Pimento 1.010 (1.000-1.030) 04/15/24 17: Urine Protein Negative (Negative) 04/15/24 17: Urine Glucose (UA) Negative (Negative) 04/15/24 17: Urine Ketones Negative (Negative) 04/15/24: Urine Blood Negative (Negative) 04/15/24: Urine Nitrite Negative (Negative) 04/15/24 17: Urine Bilirubin Negative (Negative) 04/15/24 17: Urine Urobilinogen Negative (Negative) 04/15/24: Ur Leukocyte Esterase Negative (Negative) 04/15/24 17:26 Adenovirus (PCR) Not Detected (NotDetected) 04/15/24 18:32 B. pertussis DNA (PCR) Not Detected (NotDetected) 04/15/24 18:32 B.parapertussis DNA PCR Not Detected (NotDetected) 04/15/24 18:32 C. pneumoniae DNA (PCR) Not Detected (NotDetected) 04/15/24 18:32 Coronavirus OC43 (PCR) Not Detected (NotDetected) 04/15/24 18:32 Coronavirus HKU1 (PCR) Not Detected (NotDetected) 04/15/24 18:32 Coronavirus 229E (PCR) Not Detected (NotDetected) 04/15/24 18:32 SARS-CoV-2 (PCR) Not Detected (NotDetected) 04/15/24 18:32 Coronavirus NL63 (PCR) Not Detected (NotDetected) 04/15/24 18:32 Human Metapneumovir PCR Not Detected (NotDetected) 04/15/24 18:32 Influenza Type A (PCR) Not Detected (NotDetected) 04/15/24 18:32 Influenza Type B (PCR) Not Detected (NotDetected) 04/15/24 18:32 M. pneumoniae (PCR) Not Detected (NotDetected) 04/15/24 18:32 Parainfluenza 1 (PCR) Not Detected (NotDetected) 04/15/24 18:32 Parainfluenza 2 (PCR) Not Detected (NotDetected) 04/15/24 18:32 Parainfluenza 3 (PCR) Not Detected (NotDetected) 04/15/24 18:32 Parainfluenza 4 (PCR) Not Detected (NotDetected) 04/15/24 18:32 RSV (PCR) Not Detected (NotDetected) 04/15/24 18:32 Entero/Rhino (PCR) Not Detected (NotDetected) 04/15/24 18:32 Impressions Chest X-Ray 04/15/24 18:07 XR chest 1V portable HISTORY: 78 years-old Female Chest pain, nonspecific COMPARISON: 12/02/2023 TECHNIQUE: AP view the chest FINDINGS: Cardiac silhouette is enlarged. Pulmonary vascular congestion with chronic interstitial coarsening. No pneumothorax, large pleural effusion or lobar airspa ce consolidation. Spondylitic spurring of the spine. IMPRESSION: Cardiomegaly with pulmonary vascular congestion. ACT 112: Negative or not required by law. The above report was generated using voice recognition software. It may contain grammatical, syntax or spelling errors. Electronically signed by: Greyson Sarabia M.D. 04/15/2024 6:22 PM Diagnostic Findings EKG as per my interpretation :Rate 65, NSR, LAD, LAFB, LVH, no ischemia
--- NOTE | 2024-04-15 20:17 | CT Scan Report ---
Exam(s): CT HEAD Without Contrast EXAM: CT Head Without Intravenous Contrast CLINICAL HISTORY: Reason for exam: confusion. TECHNIQUE: Axial computed tomography images of the head/brain without intravenous contrast. CTDI is 68.24 mGy and DLP is 1100.35 mGy-cm. Automated exposure control was utilized for the study. A dose lowering technique was utilized adhering to the principles of ALARA. COMPARISON: CT head on 12/13/2022 FINDINGS: Brain: No acute infarct or hemorrhage identified. No extra-axial fluid collection. No mass effect or midline shift. Scattered areas of hypoattenuation in the supratentorial white matter likely represent chronic small vessel ischemic changes. Ventricles and sulci: Prominence of the ventricles and sulci is likely secondary to cerebral volume loss. Bones: Mild hyperostosis frontalis interna. No bony lesion or acute fracture. Subcutaneous tissues: Normal. Sinuses: Mild mucosal thickening in the maxillary sinuses and ethmoid air cells. Mastoid air cells: Normal. Orbits: Bilateral lens implants. Other: Atherosclerotic calcifications in the intracranial vasculature. IMPRESSION: 1. No acute intracranial abnormality. 2. Chronic small vessel ischemic changes and cerebral volume loss. Electronically signed by: Julian Harding M.D. 04/15/24 20:16 PM
[2024-04-15] MEDS: METOPROLOL TARTRATE 1 MG/ML VIAL IV STA (20:31)
[2024-04-15] MEDS ORDERED: PROMETHAZINE 6.25 MG/50.25 ML BAG IV PRN (20:32)
[2024-04-15] MEDS ORDERED: DOCUSATE SODIUM 100 MG CAP PO PRN (20:34)
[2024-04-15] MEDS ORDERED: POLYETHYLENE (MIRALAX) 17 GM PACK PO PRN (20:34)
[2024-04-15] MEDS ORDERED: CARBOHYDRATES FOR HYPOGLYCEMIA PO PRN (22:54)
[2024-04-15] MEDS ORDERED: GLUCOSE 40% GEL 15 GM TUBE PO PRN (22:54)
[2024-04-15] MEDS ORDERED: GLUCOSE 10 TAB/TUBE PO PRN (22:54)
[2024-04-15] MEDS ORDERED: DEXTROSE 50% 50 ML SYRINGE IV PRN (22:54)
[2024-04-15] MEDS ORDERED: GLUCAGON FOR INJ 1 MG VIAL SQ PRN (22:54)
[2024-04-15] MEDS: ALBUMIN 25% 12.5 GM/50 ML VIAL IV ONE (23:12)
[2024-04-15] MEDS: INSULIN ASPART PER UNIT CHARGE SC SCH (23:15)
[2024-04-16] MEDS: APIXABAN 5 MG TABLET PO SCH (01:07)
[2024-04-16] MEDS: PANTOprazole 40 MG TAB PO SCH (01:07)
[2024-04-16] MEDS ORDERED: OLANZapine 10 MG/2.1 ML SDV IM PRN (05:32)
--- NOTE | 2024-04-16 05:32 | Communication Note ---
Date of Service: April 16, 2024 Patient with hematuria as per RN this a.m. No pain complaints. AP Painless hematuria Eliquis Rx rule out UTI Check UA Hold Eliquis for now
[2024-04-16] MEDS: LEVOTHYROXINE SODIUM 150 MCG TABLET PO SCH (05:54)
--- OUTSIDE RECORDS SUMMARY | 2024-04-16 06:32 | External Medical Summary | Summary of Care ---
Author Name Unknown Organization [facility] Address [address] [place] [address] Phone [phone] Care Team Providers Care Business English Instructor Name Role Phone Rosemary Valentine MD Primary Care Provide r Encounter Details Date Type Department Care Team (Late st Contact Info) Description 01/14/2024 Telephone Orthopaedics [facility] [address] [place] [address] Otf Grier MD [address] [place] [address] Allergies Active Allergy Reactions Criticality Noted Date Comments Codeine Nausea/vomiting 08/15/2011 Propoxyphene N-Acetaminophen Nausea/vomiting Low 08/24/2008 Iodinated Contrast Media Hives 02/06/2023 Iodine Hives 01/08/2001 Latex 09/26/2012 Contact dermititis Nitrofurantoin Rash 09/07/2014 Metformin 04/12/2021 documented as of this encounter (statuses as of 04/14/2024) Medications Medication Sig Dispensed Refills Start Date End Date Status Polyethylene Glycol 3350 17 GM/SCOOP Oral PowderIndications: constipation Take 17 g by mouth at bedtime as needed for Constipation. Active Loratadine 10 MG Oral CapsuleIndications :allergies Take 1 Capsule by mouth in the morning. Active Cyanocobalamin 1000 MCG/ML Injection Solution (Cyanocobalamin) Inject as directed 1,000 mcg every 30 days . 1 mL 11 2 Active OneTouch Verio w/Device KitIndications:Typ e 2 diabetes mellitus with stage 3a chronic kidney disease, without long-term current use of insulin (HCC) Use up to 4 times a day E11.9 1 Kit 2 Active Pantoprazole Sodium 20 MG Oral Tablet Delayed Release (Protonix)Indicati ons:Gastroesophage al reflux disease with esophagitis without hemorrhage Take 1 Tablet by mouth in the morning and 1 Tablet in the evening. 180 Tablet 1 3 Active Albuterol Sulfate HFA 108 (90 [...] EVERY DAY 200 Tablet 2 4 Active Fluticasone Propionate 50 MCG/ACT Nasal Suspension (Flonase)Indicatio ns:Seasonal allergic rhinitis due to pollen Administer 2 Sprays into each nostril in the morning. 18.2 mL 11 4 Active Trulicity 0.75 MG/0.5ML Subcutaneous Solution [...] into both eyes 2 times a day. 3 Active OneTouch Verio In Vitro Strip (Glucose Blood)Indications: Type 2 diabetes mellitus with stage 3a chronic kidney disease, without long-term current use of insulin (HCC) Use once daily to check glucose E11.9 100 Strip 5 4 Active NATURAL SUPPLEMENT Take 1-2 Tablets by mouth at bedtime as needed for Sleep. Relaxium Active Levothyroxine Sodium 150 MCG Oral Tablet (Levoxyl)Indicatio ns:Acquired hypothyroidism Take 1 Tablet by mouth daily first thing in the morning. (at least 30 min prior to breakfast or other meds) 90 Tablet 1 4 Active Diclofenac Sodium 1 % External Gel (Voltaren)Indicati ons:Generalized osteoarthritis of multiple sites Apply topically to affected area 4 times a day as needed (joint pain). Apply to affected joint 350 g 4 Active OneTouch UltraSoft LancetsIndications :Type 2 diabetes mellitus with stage 3a chronic kidney disease, without long-term current use of insulin (HCC) Use once daily to check glucose E11.9 100 Each 4 Active Eliquis 5 MG Oral Tablet (Apixaban) TAKE ONE TABLET BY MOUTH TWICE DAILY 60 Tablet 5 4 Active Metoprolol Succinate ER 25 MG Oral Tablet Extended Release 24 Hour (toPROL XL)Indications:Par oxysmal atrial fibrillation (HCC) TAKE THREE TABLETS BY MOUTH TWO TIMES A DAY 180 Tablet 4 Active ASPIRIN 81 MG PO TABSIndications:he art Take 1 Tablet by mouth in the morning. 02/28/20 24 Discontinued(Pa tient preference/disc ontinuation) Iron-Vitamin C 65-125 MG Oral Tablet Take 1 Tablet by mouth in the morning. 90 Tab 3 6 02/28/20 24 Discontinued(Pa bryantnt preference/disc ontinuation) hydroCHLOROthiazid e 12.5 MG Oral Tablet (Hydrodiuril) TAKE ONE TABLET BY MOUTH IN THE MORNING 90 Tablet 3 3 01/21/20 24 Discontinued Docusate Sodium 100 MG Oral Capsule (Colace) Take 2 Capsules by mouth at bedtime as needed for Constipation. Patient taking daily at bedtime 02/28/20 24 Discontinued(Pa tient preference/disc ontinuation) Ezetimibe 10 MG Oral Tablet (Zetia)Indications :Dyslipidemia, goal LDL below 70 TAKE ONE TABLET BY MOUTH IN THE MORNING 90 Tablet 3 3 02/28/20 24 Discontinued(Pa tient preference/disc ontinuation) Irbesartan 150 MG Oral Tablet (Avapro) Take 1 Tablet by mouth in the morning. 90 Tablet 1 4 02/14/20 24 Discontinued Acetaminophen ER 650 MG Oral Tablet Extended Release (Arthritis Pain Relief) Take 1 Tablet by mouth every 8 hours as needed. 02/28/20 24 Discontinued([place] preference/disc ontinuation) Ondansetron HCl 4 MG Oral Tablet (Zofran)Indication s:Nausea without vomiting take 1 tablet every 6 hours as needed for nausea. 30 Tablet 2 4 03/11/20 24 Discontinued(Re fill) Rosuvastatin Calcium 10 MG Oral Tablet (Crestor)Indicatio ns:Dyslipidemia, goal LDL below 100 Take 1 Tablet by mouth in the morning. 90 Tablet 3 4 02/28/20 24 Discontinued([place] darling preference/disc ontinuation) Nystatin 031610 UNIT/ML Mouth/Throat SuspensionIndicati ons:Thrush Swish and swallow 5 mL in the morning and 5 mL at noon and 5 mL in the evening and 5 mL before bedtime. For thrush.. 240 mL 1 4 01/16/20 24 ALPRAZolam 0.5 MG Oral Tablet (xaNAX)Indications :Anxiety take 1 tablet in the morning and evening if needed for anxiety 60 Tablet 4 01/30/20 24 Discontinued(Re fill) Fluticasone Furoate-Vilanterol 100-25 MCG/ACT Inhalation Aerosol Powder Breath Activated (BREO ellipta) Inhale 1 Puff by mouth in the morning. 90 Each 3 4 02/20/20 24 Discontinued Hospital, Clinic, or Other Facility Administered Medication Ordered Dose Route Frequency Start Date End Date Status vitamin b-12 (Cyanocobalamin) inj 1,000 mcgIndications:Vitamin B12 deficiency 1000 mcg IM [id number] 01/10/2024 12/11/2024 Active documented as of this encounter (statuses as of 04/14/2024) Active Problems Problem Noted Date Diagnosed Date [...] as of this encounter (statuses as of 04/14/2024) Resolved Problems Problem Noted Date Diagnosed Date [...] Taxonomy. Impaired fasting glucose 06/23/200607/2011 LOC PRIM [id number] 04/16/200609/24 LOC PRIM OSTEOARTH-ANKLE 04/16/2006 Sprain of [...] as of this encounter (statuses as of 04/14/2024) Immunizations Name Administration Dates Next Due Pneumococcal Conjugate Vacc, 13 Valent (Prevnar) 10/07/2014 Pneumococcal Polysaccharide PPV23 (Pneumovax) 08/18/2008 Season Influenza, Quad, PF, Adjuvanted, 65+ Yrs, IM (FLUAD) 05/06/2020 Seasonal Influenza Vac., MDV , IM, 0.5 mL (Fluzone) 04/23/2014,04/21/2013,03/25/2012,03/25,03/25/2010,03/25/2009,04/06/2008 Seasonal Influenza Virus Vac cine, Unspecified Formulation 02/26/2019,04/23/2018,03/05/2017,03/22,03/29/2015,04/23/2014,04/21/2013 ,03/25/2012,03/25/2011,03/25/2010,06/2008,04/06/2008,03/28/2004, 3,04/14/2002,05/20/2001 Seasonal Influenza, High Dos e, Trivalent, PF, IM (Fluzone HD) 02/23/2022 Seasonal Influenza, PF, 6 M & above, IM , (FluLaval or Fluzone) 04/23/2018 Seasonal Influenza, Quadriva lent Hd (Fluzone Hd) 03/05/2023,05/11/2021 Seasonal Influenza, Quadriva lent, No Preserve, IM 03/05/2017,03/22/2016,03/29/2015 Seasonal Influenza, Trivalen t, Adjuvanted, 65+ YRS, PF, (Fluad) 02/26/2019 TDAP (age 10 and older)(Boostrix) 02/10/2019 TDAP, [...] money to get more. Never true 07/30/2023 Childcare Answer Date Recorded Do you feel overwhelmed with taking care of a child, family member or friend? No 07/30/2023 Does your family need help f inding childcare? (Household - for ages 0-17 years) Not on file 07/30/2023 Clothing Answer Date Recorded Have you been unable to get clothing when it was really needed? No 07/30/2023 Is your family able to get c lothes or diapers when needed? (Household - for ages 0-17 years) Not on file 07/30/2023 Personal Safety Answer Date Recorded Do you feel unsafe or have concerns for your saf ety? No 07/30/2023 Do you have concerns for you r family's safety? (Household - for ages 0-17 years) Not on file 07/30/2023 Utilities Answer Date Recorded Do you have trouble paying y our heating, water, or electric bill? No 07/30/2023 Is your family able to pay t he heat, water, or electric bill? (Household - for ages 0-17 years) Not on file 07/30/2023 Does your family have access to good internet? (Household - for ages 0-17 years) Not on file 07/30/2023 Employment Status Answer Date Recorded Are you unemployed or without regular income? No 07/30/2023 Does the household have a re gular source of income? (Household - for ages 0-17 years) Not on file 07/30/2023 Social Connections Answer Date Recorded How often do you feel lonely or isolated from th ose around you? Never 07/30/2023 Financial Resource Strain Answer Date R ecorded Do you have any trouble payi ng for your medications, or do you think you might in the future? No 07/30/2023 Does your family have troubl e paying for medicine? (Household - for ages 0-17 years) Not on file 07/30/2023 Transportation Needs Answer Date Record ed READ ONLY Do you have troubl e getting a ride to medical visits or work? Never True 07/30/2023 Does your family have a hard time getting a ride to doctors visits? (Household - for ages 0-17 years) Not on file 07/30/2023 Has lack of transportation k ept you from medical appointments, meetings, work, or from getting things needed for daily living? Check all that apply. (Adult - for ages 18 years and over) Not on file 07/30/2023 Do you (or your family) have trouble finding or paying for a ride (transportation)? (Household - for ages 0-17 years) Not on file 07/30/2023 Housing Stability Answer Date Recorded Do you currently live in a s helter or have no steady place to sleep at night? No 07/30/2023 READ ONLY Do you think you a re at risk of becoming homeless? No 07/30/2023 Does your family worry about paying for your home or becoming homeless? (Household - for ages 0-17 years) Not on file 0 07/30/2023 Are you homeless or worried that you might be in the future? (Adult - for ages 18 years and over) Not on file Are you (or your family) guillermina eless or worried that you might be in the future? (Household - for ages 0-17 years) Not on file Food Insecurity Answer Date Recorded Do you need food for this week? No 07/30/2023 Are you able to get enough f ood for your family? (Household - for ages 0-17 years) Not on file 07/30/2023 Does your family need food t his week? (Household - for ages 0-17 years) Not on file 07/30/2023 Do you always have enough fo od for your family? (Household - for ages 0-17 years) Not on file 07/30/2023 Sex and Gender Information Value Date Recorded Sex Assigned at Female 01/23/2022 3:44 PM EDT Gender Identity Female 01/23/2022 3:44 PM EDT Sexual Orientation Straight 01/23/2022 3: 44 PM EDT Job Start Date Occupation Industry Not on file Not on file Not on file documented as of this encounter Miscellaneous Notes * Telephone Encounter - Julita Rg OSA - 01/15/2024 5:40 AM EDT SEE REFERRAL MESSAGE * Telephone Encounter - Nella Singh RN - 01/14/2024 3:01 PM EDT Orthopaedics Pre-Cert Request Medication/Disease State Information: Medication: Hyaluronate- Gelsyn-3 (J7328): inject 16.8 mg (2 mL) once weekly for 3 weeks (total of 3 injections). Route to [id number] Is there radiological proof(x-ray, cat scan, mri of osteoarthritis? yesIf yes, date of scan: 09/18/2022 Has the patient tried physical therapy?yes Has the patient tried tylenol or NSAIDs?yes Has the patient failed corticosteroid injections of the knee?yes Has the patient tried weight loss?yes Has the patient tried knee bracing?yes Has the patient tried a home exercise program?yes Diagnosis (including ICD-10): Unilateral primary osteoarthritis, right knee- M17.11 Medication(s) Tried/Failed/Contraindicated: over the counter pain medications See corresponding visit note(s) for additional supporting clinical information. Office Information: Prescriber: Cherrie documented in this encounter Plan of Treatment Upcoming Encounters Date Type Department Care Team (Late st Contact Info) Description 04/24/2024 3:30 PM EDT Office Visit Cardiology [address] [place] [address] Herberth Denny PA-C [address] [place] [address] 04/25/2024 4:20 PM EDT Nurse Only Ancillary [address] [place] [address] Nurse Samantha [address] [place] [phone] 08/07/2024 3:30 PM EST Telemedicine Orthopaedics [address] [place] [phone] Otf Grier MD [address] [place] [address] Health Maintenance Due Date Last Done Comments DXA Scan 01/04/2023 01/05/2020, 01/04/2015 Colonoscopy 04/19/2023 04/19/2018, 03/26, 09/29/2014, Additional history exists CKD HGB USE SMARTSET 66833 01/20/202401/19, 01/19/2023, 07/03/2022, Additional history exists Adult Wellness Visit 01/30/2024 01/29/2023, 01/24/20 22 Depression Monitoring 01/30/2024 01/29/2023 Diabetic Foot Exam 01/30/2024 01/29/2023, 0 01/23/2022, 12/20/2020, Additional history exists COVID-19 Vaccine ( season) 2024 Influenza Vaccine (FLU shot) (#1) 2024 03/05/2023, 02/23/2022, 05/11/2021, Additional history exists TSH 03/19/2024 03/19/2023, 12/24, 11/27/2022, Additional history exists HbA1c 04/09/2024 10/09/2023, 12/24, 07/03/2022, Additional history exists GFR 07/12/2024 01/10/2024, 09/23, 01/19/2023, Additional history exists Diabetic Eye Exam 09/27/2024 09/28/2023, , 08/15/2022, Additional history exists Albumin/Creatinine Ratio 10/08/2024 024, 08/04/2022, 05/11/2021, Additional history exists CKD PHOS USE SMARTSET 15050 10/08/202409/23, 07/03/2022, 05/11/2021, Additional history exists DTap/Tdap Vaccines (3 - Td or Tdap) 02/10/2029 02/10/2019, 08/29/2007 Pneumococcal Vaccine: 65+ Years Completed 10/07/2014, 08/18/2008 FOBT ANNUALLY,AGES 18-90 Discontinued 018, 04/19/2018, 09/29/2014, Additional history exists RETIRED - COLONOSCOPY-EVERY 5 YRS AGES 18-100 Discontinued 04/19/2018, 04/19/2018, 09/29/2014, Additional history exists Zoster Vaccines Completed 06/06/2021, 02/25/2021 HPV (Gardasil) Vaccine Aged Out No lo nger eligible based on patient's age to complete this topic Hepatitis B Vaccine Aged Out No longe r eligible based on patient's age to complete this topic MENINGOCOCCAL (MENACTRA/MENVEO) Aged Out No longer eligible based on patient's age to complete this topic documented as of this encounter Medical Devices Implanted Type Area Strawhat Blocking Operator Device Identifier Shelf Expiration Date Model / Serial / Lot Lens Intraoc 19.5 - [id number] - [id number] Implanted:Qty: 1 on 03/17/2021 by Migel Dejesus MD at OR [facility] Left: Eye [employer] 10/22/2025 [id number] / [id number] / [id number] Lens Intraoc 20.0 - [id number] - [id number] Implanted:Qty: 1 on 03/31/2021 by Migel Dejesus MD at OR [facility] Right: Eye [employer] 12/22/2025 [id number] / [id number] / [id number] documented as of this encounter Advance Directives Healthcare Agents on File Name Relationship Healthcare Agent Relationshi p Communication Mimi Vieyra Adult Child Health Care Repr esentative (appointed verbally by patient or by statute hierarchy) Yanci Adkins Adult Child Health Care Repr esentative (appointed verbally by patient or by statute hierarchy) Care Teams Business English Instructor Relationship Specialty Start Date End Date Rosemary Valentine MD [address] [place] [address] [place] [id number] PCP - General Family Medicine 09/05/23 documented as of this encounter
--- OUTSIDE RECORDS SUMMARY | 2024-04-16 06:32 | External Medical Summary | Summary of Care ---
Author Name Unknown Organization [facility] Address [address] [place] [address] Phone [phone] Care Team Providers Care Blood Or Blood Bank Technician Name Role Phone Rosemary Valentine MD Primary Care Provide r Reason for Visit * Reason Onset Date Comments Appointment 04/14/2024 Patient wants to reschedule Med Request 04/14/2024 Encounter Details Date Type Department Care Team (Late st Contact Info) Description 04/14/2024 Telephone Family Medicine [address] [phone] Rosemary Valentine MD [address] [place] [phone] Appointment (Patient wants to reschedule )... Allergies Active Allergy Reactions Criticality Noted Date Comments Codeine Nausea/vomiting 08/15/2011 Propoxyphene N-Acetaminophen Nausea/vomiting Low 08/24/2008 Iodinated Contrast Media Hives 02/06/2023 Iodine Hives 01/08/2001 Latex 09/26/2012 Contact dermititis Nitrofurantoin Rash 09/07/2014 Metformin 04/12/2021 documented as of this encounter (statuses as of 04/14/2024) Medications Medication Sig Dispensed Refills Start Date End Date Status Polyethylene Glycol 3350 17 GM/SCOOP Oral PowderIndications:co nstipation Take 17 g by mouth at bedtime as needed for Constipation. Active Loratadine 10 MG Oral CapsuleIndications:a llergies Take 1 Capsule by mouth in the morning. Active Cyanocobalamin 1000 MCG/ML Injection Solution (Cyanocobalamin) Inject as directed 1,000 mcg every 30 days . 1 mL 11 09/13/2021 Active OneTouch Verio w/Device KitIndications:Type 2 diabetes mellitus with stage 3a chronic kidney disease, without long-term current use of insulin ([facility]) Use up to 4 times a day E11.9 1 Kit 10/03/2021 Active Pantoprazole Sodium 20 MG Oral Tablet Delayed Release (Protonix)Indication s:Gastroesophageal reflux disease with esophagitis without hemorrhage Take 1 Tablet by mouth in the morning and 1 Tablet in the evening. 180 Tablet 1 01/19/2023 Active Albuterol Sulfate HFA 108 (90 Base) [...] the morning. 18.2 mL 11 08/15/2023 Active Trulicity 0.75 MG/0.5ML Subcutaneous Solution Pen-injector (Dulaglutide)Indicat ions:Type 2 diabetes mellitus with stage 3a chronic kidney disease, without long-term current use of insulin ([facility]) Inject 0.75 mg under the skin once a week. (on Mondays) 6 mL 1 09/25/2023 Active Olopatadine HCl 0.1 % Ophthalmic Solution (Pataday) Instill 1 Drop into both eyes in the morning and 1 Drop before bedtime. Active Loteprednol Etabonate 0.5 % Ophthalmic Suspension (Lotemax) Instill 1 Drop into both eyes 2 times a day. 06/20/2023 Active OneTouch Verio In Vitro Strip (Glucose Blood)Indications:Ty pe 2 diabetes mellitus with stage 3a chronic kidney disease, without long-term current use of insulin ([facility]) Use once daily to check glucose E11.9 100 Strip 5 10/30/2023 Active NATURAL SUPPLEMENT Take 1-2 Tablets by mouth at bedtime as needed for Sleep. Relaxium Active Levothyroxine Sodium 150 MCG Oral Tablet (Levoxyl)Indications :Acquired hypothyroidism Take 1 Tablet by mouth daily first thing in the morning. (at least 30 min prior to breakfast or other meds) 90 Tablet 1 12/17/2023 Active Diclofenac Sodium 1 % External Gel (Voltaren)Indication s:Generalized osteoarthritis of multiple sites Apply topically to affected area 4 times a day as needed (joint pain). Apply to affected joint 350 g 5 12/17/2023 Active OneTouch UltraSoft LancetsIndications:T ype 2 diabetes mellitus with stage 3a chronic kidney disease, without long-term current use of insulin ([facility]) Use once daily to check glucose E11.9 100 Each 12/17/2023 Active Eliquis 5 MG Oral Tablet (Apixaban) TAKE ONE TABLET BY MOUTH TWICE DAILY 60 Tablet 5 01/01/2024 Active Metoprolol Succinate ER 25 MG Oral Tablet Extended Release 24 Hour (toPROL XL)Indications:Parox ysmal atrial fibrillation (HCC) TAKE THREE TABLETS BY MOUTH TWO TIMES A DAY 180 Tablet 5 01/01/2024 Active hydroCHLOROthiazide 12.5 MG Oral Tablet TAKE ONE TABLET BY MOUTH IN THE MORNING 90 Tablet 01/21/2024 Active Irbesartan 150 MG Oral Tablet (Avapro) TAKE 1 TABLET BY MOUTH EVERY MORNING 90 Tablet 3 02/14/2024 Active Fluticasone-Salmeter ol 230-21 MCG/ACT Inhalation Aerosol (Advair) Inhale 2 Puffs by mouth in the morning and 2 Puffs before bedtime. 24 g 3 02/20/2024 Active Triamcinolone Acetonide 0.1 % External Cream (Aristocort) Apply topically to affected area 2 times a day. To affected area. 60 g 1 03/05/2024 Active Ondansetron HCl 4 MG Oral Tablet (Zofran)Indications: Nausea without vomiting take 1 tablet every 6 hours as needed for nausea. 30 Tablet 2 03/12/2024 Active ALPRAZolam 0.5 MG Oral Tablet (xaNAX)Indications:A nxiety TAKE ONE TABLET BY MOUTH EVERY MORNING AND EVENING if needed for anxiety 60 Tablet 03/26/2024 Active Cephalexin 500 MG Oral Capsule (Keflex) Take 1 Capsule by mouth in the morning and 1 Capsule at noon and 1 Capsule before bedtime. Do all this for 6 days. 18 Capsule 04/14/2024 04/20/2024 Active Hospital, Clinic, or Other Facility Administered Medication Ordered Dose Route Frequency Start Date End Date Status vitamin b-12 (Cyanocobalamin) inj 1,000 mcgIndications:Vitamin B12 deficiency 1000 mcg IM [id number] 01/10/2024 12/11/2024 Active documented as of this [...] Taxonomy. Impaired fasting glucose 06/23/200607/2011 LOC PRIM [id number] 04/16/200609/24 LOC PRIM OSTEOARTH-ANKLE 04/16/2006 Sprain of [...] Unspecified Formulation 02/26/2019,04/23/2018,03/05/2017,03/22,03/29/2015,04/23/2014,04/21/2013 ,03/25/2012,03/25/2011,03/25/2010,10/06/2008,04/06/2008,03/28/2004, 3,04/14/2002,05/20/2001 Seasonal Influenza, High Dos e, Trivalent, [...] Telephone Encounter - Mini Diaz LPN - 04/14/2024 4:14 PM EDT Daughter alexis dozier. She will come in for urine supplies and collect it in the morning and bring it in before starting antibiotic. * Telephone Encounter - Rosemary Valentine MD - 04/14/2024 3:57 PM EDT I sent an antibiotic and also ordered a urine test at the lab. If she could leave a sample or have one dropped off before starting the antibiotic, that would be best. * Telephone Encounter - Mini Diaz LPN - 04/14/2024 3:52 PM EDT Spoke to daughter Mildred. She said pt had surya today at 5:[address] Valentine but Pt accidentally cancelled it. Daughter said she needs seen today. I told her that surya was already taken and that there are no openings. She said pt has had some confusion the past day or so and it is usually from a UTI. She is asking to have antibiotic called in so it can be taken care of right away before it gets out of hand. Please advise. Thanks. Call daughter Mildred back with response. * Telephone Encounter - Greta Aden OSA - 04/14/2024 3:46 PM EDT Reason for patient's call: Patients daughter is asking to speak with front line leader so her mom can be seen today Caller was transferred to [facility] at the nurse line. * Telephone Encounter - Christina Sharma OSA - 04/14/2024 1:01 PM EDT No Appointments Available Patient declined appointments?: No What Visit Type is needed? Acute If Acute Visit Type is needed, were surrounding clinics offered to patient (Yes/No)? N/A Was patient offered appointments with other available providers (Yes/No)? N/A See Call Details? (Yes or No): No Patient is calling in to cancel the appointment that she had today at 5pm. She wanted to rescheduleto middle of April but the appointment was for confusion and her daughter was concerned for a UTI. Can patient be contacted in regards to this appointment. I was not sure if she should wait that long. documented in this encounter Plan of Treatment Upcoming Encounters Date Type Department Care Team (Late st Contact Info) Description 04/24/2024 3:30 PM EDT Office Visit Cardiology [address] [place] [address] Herberth Denny PA-C [address] [place] [address] 04/25/2024 4:20 PM EDT Nurse Only Ancillary [address] [place] [address] [place], Nurse [address] [place] [address] 08/07/2024 3:30 PM EST Telemedicine Orthopaedics [address] [place] [phone] Otf Grier MD [address] [place] [phone] Scheduled Orders Name Type Priority Associated Diagnoses Orde r Schedule URINALYSIS, REFLEX TO CULTURE (NOT FOR NEUTROPENIC PATIENTS) Lab Routine Dysuria Expected: 04/14/2024, Expires: 04/14/2025 Health Maintenance Due Date Last Done Comments DXA Scan 01/04/2023 01/05/2020, 01/04/2015 Colonoscopy 04/19/2023 04/19/2018, 03/26, 09/29/2014, Additional history exists CKD HGB USE SMARTSET 81594 01/20/202401/19, 01/19/2023, 07/03/2022, Additional history exists Adult Wellness Visit 01/30/2024 01/29/2023, 01/24/20 Depression Monitoring 01/30/2024 01/29/2023 Diabetic Foot Exam [...] Additional history exists CKD PHOS USE SMARTSET 62089 10/08/202409/23, 07/03/2022, 05/11/2021, Additional history exists DTap/Tdap [...] this encounter Medical Devices Implanted Type Area Social Welfare Research Worker Device Identifier Shelf Expiration Date Model / Serial / Lot Lens Intraoc 19.5 - [id number] - [id number] Implanted:Qty: 1 on 03/17/2021 by Migel Dejesus MD at OR [facility] Left: Eye [employer] 10/22/2025 [id number] / [id number] / [id number] Lens Intraoc 20.0 - [id number] - [id number] Implanted:Qty: 1 on 03/31/2021 by Migel Dejesus MD at OR [facility] Right: Eye [employer] 12/22/2025 [id number] / [id number] / [id number] documented as of this encounter Visit Diagnoses Diagnosis Dysuria- Primary documented in this encounter Advance Directives Healthcare Agents on File Name Relationship Healthcare Agent Relationshi p Communication Mimi Vieyra Adult Child Health Care Repr esentative (appointed verbally by patient or by statute hierarchy) Yanci Adkins Adult Child Health Care Repr esentative (appointed verbally by patient or by statute hierarchy) Care Teams Blood Or Blood Bank Technician Relationship Specialty Start Date End Date Rosemary Valentine MD [address] [place] [address] [place] [address] PCP - General Family Medicine 09/05/23 documented as of this encounter
--- OUTSIDE RECORDS SUMMARY | 2024-04-16 06:33 | External Medical Summary | Summary of Care ---
Author Name Unknown Organization [facility] Address [address] [place] [address] Phone [phone] Care Team Providers Care Aegis Operations Specialist Name Role Phone Rosemary Valentine MD Primary Care Provide r Encounter Details Date Type Department Care Team (Late st Contact Info) Description 01/10/2024 Telephone Family Medicine [address] [phone] Rosemary Valentine MD [address] [place] [address] [place] [phone] Allergies Active Allergy Reactions Criticality Noted Date Comments Codeine Nausea/vomiting 08/15/2011 Propoxyphene N-Acetaminophen Nausea/vomiting Low 08/24/2008 Iodinated Contrast Media Hives 02/06/2023 Iodine Hives 01/08/2001 Latex 09/26/2012 Contact dermititis Nitrofurantoin Rash 09/07/2014 Metformin 04/12/2021 documented as of this encounter (statuses as of 04/10/2024) Medications Medication Sig Dispensed Refills Start Date [...] TWO TIMES A DAY 180 Tablet 5 4 Active ASPIRIN 81 MG PO TABSIndications:he art Take 1 Tablet by mouth in the morning. 02/28/20 24 Discontinued(Pa tient preference/disc ontinuation) Iron-Vitamin C 65-125 MG Oral Tablet Take 1 Tablet by mouth in the morning. 90 Tab 3 6 02/28/20 24 Discontinued(Pa tient preference/disc ontinuation) hydroCHLOROthiazid e 12.5 MG Oral [...] 02/28/20 24 Discontinued(Cade darling preference/disc ontinuation) Nystatin 110818 UNIT/ML Mouth/Throat SuspensionIndicati ons:Thrush Swish and swallow [...] 1,000 mcgIndications:Vitamin B12 deficiency 1000 mcg IM [id number] 01/10/2024 12/11/2024 Active documented as of this encounter (statuses as of 04/10/2024) Active Problems Problem Noted Date Diagnosed Date [...] as of this encounter (statuses as of 04/10/2024) Resolved Problems Problem Noted Date Diagnosed Date [...] Taxonomy. Impaired fasting glucose 06/23/200607/2011 LOC PRIM [id number] 04/16/200609/24 LOC PRIM OSTEOARTH-ANKLE 04/16/2006 Sprain of [...] as of this encounter (statuses as of 04/10/2024) Immunizations Name Administration Dates Next Due Pneumococcal [...] Telephone Encounter - Rosemary Valentine MD - 01/10/2024 3:26 PM EDT Signed documented in this encounter Plan of Treatment Upcoming Encounters Date Type Department Care Team (Late st Contact Info) Description 04/24/2024 3:30 PM EDT Office Visit Cardiology [address] [place] [address] Herberth Denny PA-C [address] [place] [address] 04/25/2024 4:20 PM EDT Nurse Only Ancillary [address] [place] [address] [place], Nurse [address] [place] [address] 08/07/2024 3:30 PM EST Telemedicine Orthopaedics [address] [place] [phone] Otf Grier MD [address] [place] [address] Health Maintenance Due Date Last Done Comments DXA Scan 01/04/2023 01/05/2020, 01/04/2015 Colonoscopy 04/19/2023 04/19/2018, 03/26, 09/29/2014, Additional history exists CKD HGB USE SMARTSET 77096 01/20/202401/19, 01/19/2023, 07/03/2022, Additional history exists Adult [...] Additional history exists CKD PHOS USE SMARTSET 78138 10/08/202409/23, 07/03/2022, 05/11/2021, Additional history exists DTap/Tdap [...] this encounter Medical Devices Implanted Type Area Thread Marker Device Identifier Shelf Expiration Date Model / Serial / Lot Lens Intraoc 19.5 - [id number] - [id number] Implanted:Qty: 1 on 03/17/2021 by Migel Dejesus MD at OR [facility] Left: Eye [employer] 10/22/2025 [id number] / [id number] / [id number] Lens Intraoc 20.0 - [id number] - [id number] Implanted:Qty: 1 on 03/31/2021 by Migel Dejesus MD at OR [facility] Right: Eye [employer] 12/22/2025 [id number] / [id number] / [id number] documented as of this encounter Visit Diagnoses Diagnosis Vitamin B12 deficiency- Primary Other B-complex deficiencies documented in this encounter Advance Directives Healthcare Agents on File Name Relationship Healthcare Agent Relationshi p Communication iMmi Vieyra Adult Child Health Care Repr esentative (appointed verbally by patient or by statute hierarchy) Yanci Adkins Adult Child Health Care Repr esentative (appointed verbally by patient or by statute hierarchy) Care Teams Aegis Operations Specialist Relationship Specialty Start Date End Date Rosemary Valentine MD [address] [place] [address] [place] [phone] PCP - General Family Medicine 09/05/23 documented as of this encounter
--- OUTSIDE RECORDS SUMMARY | 2024-04-16 06:33 | External Medical Summary | Summary of Care ---
Author Name Unknown Organization [facility] Address [address] [place] [address] Phone [phone] Care Team Providers Care Contract Recruiter Name Role Phone Rosemary Valentine MD Primary Care Provide r Encounter Details Date Type Department Care Team (Late st Contact Info) Description 04/08/2024 Population Health External Data Unspecified Department Allergies Active Allergy Reactions Criticality Noted Date Comments Codeine Nausea/vomiting 08/15/2011 Propoxyphene N-Acetaminophen Nausea/vomiting Low 08/24/2008 Iodinated Contrast Media Hives 02/06/2023 Iodine Hives 01/08/2001 Latex 09/26/2012 Contact dermititis Nitrofurantoin Rash 09/07/2014 Metformin 04/12/2021 documented as of this encounter (statuses as of 04/09/2024) Medications Medication Sig Dispensed Refills Start Date End Date Status Polyethylene Glycol 3350 17 GM/SCOOP Oral PowderIndications:con stipation Take 17 g by mouth at bedtime as needed for Constipation. Active Loratadine 10 MG Oral CapsuleIndications:al lergies Take 1 Capsule by mouth in the [...] Sodium 20 MG Oral Tablet Delayed Release (Protonix)Indications :Gastroesophageal reflux disease with esophagitis without hemorrhage Take 1 Tablet by mouth in the morning and 1 Tablet in the evening. 180 Tablet 1 01/19/2023 Active Albuterol Sulfate HFA 108 (90 Base) MCG/ACT Inhalation Aerosol SolutionIndications:I ntermittent asthma with reliever use up to twice per week without complication,SOB (shortness of breath) Inhale 2 Puffs by mouth every 6 hours as needed for Shortness of Breath or Wheezing. 18 g 5 06/07/2023 Active Sertraline HCl 100 MG Oral Tablet (Zoloft)Indications:A nxiety, generalized,Current moderate episode of major depressive disorder without prior episode (HCC) TAKE 1 - 2 TABLETS BY MOUTH EVERY DAY 200 Tablet 2 07/28/2023 Active Fluticasone Propionate 50 MCG/ACT Nasal Suspension (Flonase)Indications: Seasonal allergic rhinitis due to pollen Administer 2 Sprays into each nostril in the morning. 18.2 mL 11 08/15/2023 Active Trulicity 0.75 MG/0.5ML Subcutaneous Solution Pen-injector (Dulaglutide)Indicati ons:Type 2 diabetes mellitus with stage 3a chronic kidney disease, without long-term current use of insulin ([facility]) Inject 0.75 mg under the skin once a week. (on Mondays) 6 mL 1 09/25/2023 Active Olopatadine HCl 0.1 % Ophthalmic Solution (Pataday) Instill 1 Drop into both eyes in the morning and 1 Drop before bedtime. Active Loteprednol Etabonate 0.5 % Ophthalmic Suspension (Lotemax) Instill 1 Drop into both eyes 2 times a day. 06/20/2023 Active OneTouch Verio In Vitro Strip (Glucose Blood)Indications:Typ e 2 diabetes mellitus with stage 3a chronic kidney disease, without long-term current use of insulin ([facility]) Use once daily to check glucose E11.9 100 Strip 5 10/30/2023 Active NATURAL SUPPLEMENT Take 1-2 Tablets by mouth at bedtime as needed for Sleep. Relaxium Active Levothyroxine Sodium 150 MCG Oral Tablet (Levoxyl)Indications: Acquired hypothyroidism Take 1 Tablet by mouth daily first thing in the morning. (at least 30 min prior to breakfast or other meds) 90 Tablet 1 12/17/2023 Active Diclofenac Sodium 1 % External Gel (Voltaren)Indications :Generalized osteoarthritis of multiple sites Apply topically to affected area 4 times a day as needed (joint pain). Apply to affected joint 350 g 5 12/17/2023 Active OneTouch UltraSoft LancetsIndications:Ty pe 2 diabetes mellitus with stage 3a chronic kidney disease, without long-term current use of insulin (HCC) Use once daily to check glucose E11.9 100 Each 5 12/17/2023 Active Eliquis 5 MG Oral Tablet (Apixaban) TAKE ONE TABLET BY MOUTH TWICE DAILY 60 Tablet 5 01/01/2024 Active Metoprolol Succinate ER 25 MG Oral Tablet Extended Release 24 Hour (toPROL XL)Indications:Paroxy smal atrial fibrillation (HCC) TAKE THREE TABLETS BY MOUTH TWO TIMES A DAY 180 Tablet 5 01/01/2024 Active hydroCHLOROthiazide 12.5 MG Oral Tablet TAKE ONE TABLET BY MOUTH IN THE MORNING 90 Tablet 01/21/2024 Active Irbesartan 150 MG Oral Tablet (Avapro) TAKE 1 TABLET BY MOUTH EVERY MORNING 90 Tablet 3 02/14/2024 Active Fluticasone-Salmetero l 230-21 MCG/ACT Inhalation Aerosol (Advair) Inhale 2 Puffs by mouth in the morning and 2 Puffs before bedtime. 24 g 3 02/20/2024 Active Triamcinolone Acetonide 0.1 % External Cream (Aristocort) Apply topically to affected area 2 times a day. To affected area. 60 g 1 03/05/2024 Active Ondansetron HCl 4 MG Oral Tablet (Zofran)Indications:N ausea without vomiting take 1 tablet every 6 hours as needed for nausea. 30 Tablet 2 03/12/2024 Active ALPRAZolam 0.5 MG Oral Tablet (xaNAX)Indications:An xiety TAKE ONE TABLET BY MOUTH EVERY MORNING AND EVENING if needed for anxiety 60 Tablet 03/26/2024 Active Hospital, Clinic, or Other Facility Administered Medication Ordered Dose Route Frequency Start Date End Date Status vitamin b-12 (Cyanocobalamin) inj 1,000 mcgIndications:Vitamin B12 deficiency 1000 mcg IM [id number] 01/10/2024 12/11/2024 Active documented as of this encounter (statuses as of 04/09/2024) Active Problems Problem Noted Date Diagnosed Date [...] as of this encounter (statuses as of 04/09/2024) Resolved Problems Problem Noted Date Diagnosed Date [...] Taxonomy. Impaired fasting glucose 06/23/200607/2011 LOC PRIM [id number] 04/16/200609/24 LOC PRIM OSTEOARTH-ANKLE 04/16/2006 Sprain of [...] as of this encounter (statuses as of 04/09/2024) Immunizations Name Administration Dates Next Due Pneumococcal [...] 3:30 PM EDT Office Visit Cardiology [address] [place] [address] Herberth Denny PA-C [address] [place] [address] 04/25/2024 4:20 PM EDT Nurse Only Ancillary [address] [place] [address] [place], Nurse [address] [place] [address] 08/07/2024 3:30 PM EST Telemedicine Orthopaedics [address] [place] [phone] Otf Grier MD [address] [place] [address] Health Maintenance Due Date Last Done Comments DXA Scan 01/04/2023 01/05/2020, 01/04/2015 Colonoscopy 04/19/2023 04/19/2018, 03/26, 09/29/2014, Additional history exists CKD HGB USE SMARTSET 31230 01/20/202401/19, 01/19/2023, 07/03/2022, Additional history exists Adult [...] Additional history exists CKD PHOS USE SMARTSET 37765 10/08/202409/23, 07/03/2022, 05/11/2021, Additional history exists DTap/Tdap [...] this encounter Medical Devices Implanted Type Area Exterminator Helper Device Identifier Shelf Expiration Date Model / Serial / Lot Lens Intraoc 19.5 - [id number] - [id number] Implanted:Qty: 1 on 03/17/2021 by Migel Dejesus MD at OR [facility] Left: Eye [employer] 10/22/2025 [id number] / [id number] / [id number] Lens Intraoc 20.0 - [id number] - [id number] Implanted:Qty: 1 on 03/31/2021 by Migel Dejesus MD at OR [facility] Right: Eye [employer]OM[employer] 12/22/2025 [id number] / [id number] / [id number] documented as of this encounter Advance Directives Healthcare Agents on File Name Relationship Healthcare Agent Relationshi p Communication Mimi Vieyra Adult Child Health Care Repr esentative (appointed verbally by patient or by statute hierarchy) Yanci Adkins Adult Child Health Care Repr esentative (appointed verbally by patient or by statute hierarchy) Care Teams Contract Recruiter Relationship Specialty Start Date End Date Rosemary Valentine MD [address] [place] [address] [place] [address] PCP - General Family Medicine 09/05/23 documented as of this encounter
--- OUTSIDE RECORDS SUMMARY | 2024-04-16 06:33 | External Medical Summary | Summary of Care ---
Author Name Unknown Organization [facility] Address [address] [place] [address] Phone [phone] Care Team Providers Care Retail Pharmacy Technician Name Role Phone Rosemary Valentine MD Primary Care Provide r Reason for Visit * Reason Onset Date Comments Advice 12/25/2023 Carolyn concern s Encounter Details Date Type Department Care Team (Late st Contact Info) Description 12/25/2023 Telephone Family Medicine [address] [phone] Rosemary Valentine MD [address] [place] [address] [place] [address] Advice (Carolyn concerns) Allergies Active Allergy Reactions Criticality Noted Date Comments Codeine Nausea/vomiting 08/15/2011 Propoxyphene N-Acetaminophen Nausea/vomiting Low 08/24/2008 Iodinated Contrast Media Hives 02/06/2023 Iodine Hives 01/08/2001 Latex 09/26/2012 Contact dermititis Nitrofurantoin Rash 09/07/2014 Metformin 04/12/2021 documented as of this encounter (statuses as of 03/25/2024) Medications Medication Sig Dispensed Refills Start Date [...] check glucose E11.9 100 Each 12/17/2023 Active documented as of this encounter (statuses as of 03/25/2024) Active Problems Problem Noted Date Diagnosed Date [...] as of this encounter (statuses as of 03/25/2024) Resolved Problems Problem Noted Date Diagnosed Date [...] Taxonomy. Impaired fasting glucose 06/23/200607/2011 LOC PRIM [id number] 04/16/200609/24 LOC PRIM OSTEOARTH-ANKLE 04/16/2006 Sprain of [...] as of this encounter (statuses as of 03/25/2024) Immunizations Name Administration Dates Next Due Pneumococcal Conjugate Vacc, 13 Valent (Prevnar) 10/07/2014 Pneumococcal Polysaccharide PPV23 (Pneumovax) 08/18/2008 Season Influenza, Quad, PF, Adjuvanted, 65+ Yrs, IM (FLUAD) 05/06/2020 Seasonal Influenza Vac., MDV , IM, 0.5 mL (Fluzone) 04/23/2014,04/21/2013,03/25/2012,03/25,03/25/2010,03/25/2009,04/06/2008 Seasonal Influenza Virus Vac cine, Unspecified Formulation 02/26/2019,04/23/2018,03/05/2017,03/22,03/29/2015,04/23/2014,04/21/2013 ,03/25/2012,03/25/2011,03/25/2010,1006/2008,04/06/2008,03/28/2004, 3,04/14/2002,05/20/2001 Seasonal Influenza, High Dos e, Trivalent, [...] No 07/30/2023 Does the household have a [place] [facility] source of income? (Household - for ages [...] Telephone Encounter - Thea Mccann LPN - 12/25/2023 3:39 PM EDT message left for patient to return my phone call Transfer to Nurse Triage line [phone] * Telephone Encounter - Rosemary Valentine MD - 12/25/2023 2:49 PM EDT If there is no mee and she is feeling OK. I don't think she needs to be seen. If she would fall down and hit her head, we usually recommend ED evaluation for a head CT. * Telephone Encounter - Marisol Marte OSA - 12/25/2023 1:45 PM EDT Daughter calling, states pt is on Elliquis. She states pt bumped her head in shower today. Pt feelsfine, daughter is asking if pt will need seen with her taking this medication and having a bump to head? Please advise. documented in this encounter Plan of Treatment Upcoming Encounters Date Type Department Care Team (Late st Contact Info) Description 04/24/2024 3:30 PM EDT Office Visit Cardiology [address] [place] [address] Mee Denny PA-C [address] [place] [address] 04/25/2024 4:20 PM EDT Nurse Only Ancillary [address] [place] [address] [place], Nurse [address] [place] [address] 08/07/2024 3:30 PM EST Telemedicine Orthopaedics [address] [place] [phone] Otf Grier MD [address] [place] [address] Health Maintenance Due Date Last Done Comments DXA Scan 01/04/2023 01/05/2020, 01/04/2015 Colonoscopy 04/19/2023 04/19/2018, 03/26, 09/29/2014, Additional history exists CKD HGB USE SMARTSET 82353 01/20/202401/19, 01/19/2023, 07/03/2022, Additional history exists Adult [...] Additional history exists CKD PHOS USE SMARTSET 07457 10/08/202409/23, 07/03/2022, 05/11/2021, Additional history exists DTap/Tdap [...] this encounter Medical Devices Implanted Type Area Soil Sort Worker Device Identifier Shelf Expiration Date Model / Serial / Lot Lens Intraoc 19.5 - [id number] - [id number] Implanted:Qty: 1 on 03/17/2021 by Migel Dejesus MD at OR [facility] Left: Eye BAUSCH [employer] LOMB 10/22/2025 [id number] / [id number] / [id number] Lens Intraoc 20.0 - [id number] - [id number] Implanted:Qty: 1 on 03/31/2021 by Migel Dejesus MD at OR [facility] Right: Eye BAUSCH & LOMB 12/22/2025 [id number] / [id number] / [id number] documented as of this encounter Advance Directives Healthcare Agents on File Name Relationship Healthcare Agent Relationshi p Communication Mimi Vieyra Adult Child Health Care Repr esentative (appointed verbally by patient or by statute hierarchy) Yanci Adkins Adult Child Health Care Repr esentative (appointed verbally by patient or by statute hierarchy) Care Teams Retail Pharmacy Technician Relationship Specialty Start Date End Date Rosemary Valentine MD [address] [place] [address] [place] [address] PCP - General Family Medicine 09/05/23 documented as of this encounter
--- OUTSIDE RECORDS SUMMARY | 2024-04-16 06:33 | External Medical Summary | Summary of Care ---
Author Name Unknown Organization [facility] Address [address] [place] [address] Phone [phone] Care Team Providers Care Disc Pad Grinder Name Role Phone Randy Valentine MD Primary Care Provide r Reason for Visit * Reason Onset Date Comments Medication Refill 03/24/2024 Encounter Details Date Type Department Care Team (Late st Contact Info) Description 03/24/2024 Refill Family Medicine [address] [phone] Randy Valentine MD [address] [place], [place] [address] [address] Anxiety Allergies Active Allergy Reactions Criticality Noted Date Comments Codeine Nausea/vomiting 08/15/2011 Propoxyphene N-Acetaminophen Nausea/vomiting Low 08/24/2008 Iodinated Contrast Media Hives 02/06/2023 Iodine Hives 01/08/2001 Latex 09/26/2012 Contact dermititis Nitrofurantoin Rash 09/07/2014 Metformin 04/12/2021 documented as of this encounter (statuses as of 03/26/2024) Medications Medication Sig Dispensed Refills Start Date End Date Status Polyethylene Glycol 3350 17 GM/SCOOP Oral PowderIndications:c [...] Active Levothyroxine Sodium 150 MCG Oral Tablet (Levoxyl)Indication s:Acquired hypothyroidism Take 1 Tablet by mouth daily first thing in the morning. (at least 30 min prior to breakfast or other meds) 90 Tablet 1 12/17/2023 Active Diclofenac Sodium 1 % External Gel (Voltaren)Indicatio ns:Generalized osteoarthritis of multiple sites Apply topically to affected area 4 times a day as needed (joint pain). Apply to affected joint 350 g 12/17/2023 Active OneTouch UltraSoft LancetsIndications: Type 2 diabetes mellitus with stage 3a chronic kidney disease, without long-term current use of insulin (HCC) Use once daily to check glucose E11.9 100 Each 12/17/2023 Active Eliquis 5 MG Oral Tablet (Apixaban) TAKE ONE TABLET BY MOUTH TWICE DAILY 60 Tablet 5 01/01/2024 Active Metoprolol Succinate ER 25 MG Oral Tablet Extended Release 24 Hour (toPROL XL)Indications:Paro xysmal atrial fibrillation (HCC) TAKE THREE TABLETS BY MOUTH TWO TIMES A DAY 180 Tablet 5 01/01/2024 Active hydroCHLOROthiazide 12.5 MG Oral Tablet TAKE ONE TABLET BY MOUTH IN THE MORNING 90 Tablet 01/21/2024 Active Irbesartan 150 MG Oral Tablet (Avapro) TAKE 1 TABLET BY MOUTH EVERY MORNING 90 Tablet 3 02/14/2024 Active Fluticasone-Salmete rol 230-21 MCG/ACT Inhalation Aerosol (Advair) Inhale 2 [...] 03/12/2024 Active ALPRAZolam 0.5 MG Oral Tablet (xaNAX)Indications: Anxiety TAKE ONE TABLET BY MOUTH EVERY MORNING AND EVENING if needed for anxiety 60 Tablet 03/26/2024 Active ALPRAZolam 0.5 MG Oral Tablet (xaNAX)Indications: Anxiety TAKE ONE TABLET BY MOUTH EVERY MORNING AND EVENING if needed for anxiety 60 Tablet 02/28/2024 4 Discontinue d(Refill) Hospital, Clinic, or Other Facility Administered Medication Ordered Dose Route Frequency Start Date End Date Status vitamin b-12 (Cyanocobalamin) inj 1,000 mcgIndications:Vitamin B12 deficiency 1000 mcg IM [id number] 01/10/2024 12/11/2024 Active documented as of this encounter (statuses as of 03/26/2024) Active Problems Problem Noted Date Diagnosed Date [...] as of this encounter (statuses as of 03/26/2024) Resolved Problems Problem Noted Date Diagnosed Date [...] Taxonomy. Impaired fasting glucose 06/23/200607/2011 LOC PRIM [id number] 04/16/200609/24 LOC PRIM OSTEOARTH-ANKLE 04/16/2006 Sprain of [...] as of this encounter (statuses as of 03/26/2024) Immunizations Name Administration Dates Next Due Pneumococcal Conjugate Vacc, 13 Valent (Prevnar) 10/07/2014 Pneumococcal Polysaccharide PPV23 (Pneumovax) 08/18/2008 Season Influenza, Quad, PF, Adjuvanted, 65+ Yrs, IM (FLUAD) 05/06/2020 Seasonal Influenza Vac., MDV , IM, 0.5 mL (Fluzone) 04/23/2014,04/21/2013,03/25/2012,1006/2010,03/25/2010,03/25/2009,04/06/20 08,04/13/2003,04/14/2002,05/20/2001 04/13/2004 Seasonal Influenza Virus Vac cine, Unspecified Formulation 02/26/2019,04/23/2018,03/05/2017,02/24,03/29/2015,04/23/2014,04/21/20 13,03/25/2012,03/25/2011,03/25/2010,1 ,04/06/2008,03/28/2004,04/13,04/14/2002,05/20/2001 Seasonal Influenza, High Dos e, Trivalent, PF, [...] encounter Miscellaneous Notes * Telephone Encounter - Henny Muñoz CPhT - 03/26/2024 12:59 PM EDT Pt calling to request ALPRAZolam 0.5 MG Oral Tablet (xaNAX) . Informed pt that RX is available at their pharmacy. Pt verbalized understanding and stated they will check with their pharmacy regarding this medication. Thank you, Leslie Muñoz CPhT [employer] [facility] ([facility]) 03/26/2024,12:59 PM * Telephone Encounter - Randy Valentine MD - 03/26/2024 9:48 AM EDT Signed Prescriptions: Disp Refills ALPRAZolam 0.5 MG Oral Tablet (xaNAX) 60 Tab*0 Sig: TAKE ONE TABLET BY MOUTH EVERY MORNING AND EVENING if needed for anxiety Authorizing Provider: RANDY VALENTINE * Telephone Encounter - Bre Cobb [facility] - 03/26/2024 9:25 AM EDT Pending Prescriptions: Disp Refills ALPRAZolam 0.5 MG Oral Tablet (xaNAX) 60 Tab*0 Sig: TAKE ONE TABLET BY MOUTH EVERY MORNING AND EVENING if needed for anxiety * Telephone Encounter - Bre Cobb [facility] - 03/26/2024 9:15 AM EDT I have reviewed the patients controlled substance dispensing history in the Prescription Drug Monitoring Program in compliance with the [facility] regulations before prescribing a controlled substance. PDMP checked on 03/26/2024. Pending Prescriptions: Disp Refills ALPRAZolam 0.5 MG Oral Tablet (xaNAX) 60 Tab*0 Sig: TAKE ONE TABLET BY MOUTH EVERY MORNING AND EVENING if needed for anxiety Last Visit: 12/17/2023 (in office), Visit date not found (telemedicine) Next Visit: Visit date not found Date medication was last filled: 03/01/24 Date medication is due for refill: 03/29/24 Pharmacy: [id number] [address] [facility] Is this request for a controlled substance? Yes and Urine Drug Screen Not completed Toxicology results: No results found. However, due to the size of the patient record, not all encounters were searched.Please check Results Review for a complete set of results. Please approve if appropriate. Thanks, Bre Cobb [facility] Clinical Pharmacist [facility] ([facility]) [phone] * Telephone Encounter - Court Guajardo PHARM Tech - 03/24/2024 4:43 PM EDT Did you pend patient's preferred pharmacy and medication before forwarding?yes Pharmacy: [id number] [address] [facility] Pending Prescriptions: Disp Refills ALPRAZolam 0.5 MG Oral Tablet (xaNAX) 60 Tab*0 Sig: TAKE ONE TABLET BY MOUTH EVERY MORNING AND EVENING if needed for anxiety Last Visit: 12/17/2023 (in office), Visit date not found (telemedicine) Next Visit: Visit date not found If no future appointments scheduled, and last appointment is greater than a year ago, please schedule patient for a follow-up appointment Last date the medication was ordered: 02/28/2024 Is this request for a controlled substance?Yes, What was the last refill date 02/28/2024 w/ quantity 60 and dosage 0.5 mg and Urine Drug Screen Not completed Urine Drug Screen:No results found. However, due to the size of the patient record, not all encounters were searched. Please check Results Review for a complete set of results. Patient Phone Numbers Labs: Lab Results Component Value Date/Time CREAT 0.9 01/10/2024 03:11 PM CREAT 1.0 02/05/2020 03:05 PM CREAT 0.6 (L) 07/15/1996 09:33 AM POTASSIUM 4.6 01/10/2024 03:11 PM POTASSIUM 4.7 02/05/2020 03:05 PM POTASSIUM 4.1 07/15/1996 09:33 AM TSH 8.05 (H) 03/19/2023 03:13 PM TSH 1.00 02/05/2020 03:05 PM TSH 20.94 (H) 07/15/1996 09:33 AM LDL 62 11/27/2022 02:49 PM LDL 104 07/29/2019 04:37 PM LDL NOT APPLICABLE 07/29/2019 04:37 PM LDL 172. (HH) 07/15/1996 09:33 AM ALT 19 01/10/2024 03:11 PM ALT 19 02/05/2020 03:05 PM HGBA1C 6.4 (H) 10/09/2023 03:34 PM HGBA1C 6.8 (H) 02/05/2020 03:05 PM documented in this encounter Plan of Treatment Upcoming Encounters Date Type Department Care Team (Late st Contact Info) Description 04/24/2024 3:30 PM EDT Office Visit Cardiology [address] [place] [address] Herberth Denny PA-C [address] [place] [address] 04/25/2024 4:20 PM EDT Nurse Only Ancillary [address] [place] [address] [place], Nurse [address] [place] [address] 08/07/2024 3:30 PM EST Telemedicine Orthopaedics [address] [place] [phone] Otf Grier MD [address] [place] [address] Health Maintenance Due Date Last Done Comments DXA Scan 01/04/2023 01/05/2020, 01/04/2015 Colonoscopy 04/19/2023 04/19/2018, 03/26, 09/29/2014, Additional history exists CKD HGB USE SMARTSET 45734 01/20/202401/19, 01/19/2023, 07/03/2022, Additional history exists Adult Wellness Visit 01/30/2024 01/29/2023, 01/24/20 22 Depression Monitoring 01/30/2024 01/29/2023 Diabetic Foot Exam 01/30/2024 01/29/2023, 0 01/23/2022, 12/20/2020, Additional history exists COVID-19 Vaccine ( - season) 2024 Influenza Vaccine (FLU shot) (#1) 2024 03/05/2023, 02/23/2022, 05/11/2021, Additional history exists TSH 03/19/2024 03/19/2023, 12/24, 11/27/2022, Additional history exists HbA1c 04/09/2024 10/09/2023, 12/24, 07/03/2022, Additional history exists GFR 07/12/2024 01/10/2024, 09/23, 01/19/2023, Additional history exists Diabetic Eye Exam 09/27/2024 09/28/2023, , 08/15/2022, Additional history exists Albumin/Creatinine Ratio 10/08/2024 024, 08/04/2022, 05/11/2021, Additional history exists CKD PHOS USE SMARTSET 33397 10/08/202409/23, 07/03/2022, 05/11/2021, Additional history exists DTap/Tdap [...] this encounter Medical Devices Implanted Type Area Nozzleman Device Identifier Shelf Expiration Date Model / Serial / Lot Lens Intraoc 19.5 - [id number] - [id number] Implanted:Qty: 1 on 03/17/2021 by Migel Dejesus MD at OR [facility] Left: Eye BAUSCH [employer] LOMB 10/22/2025 [id number] / [id number] / [id number] Lens Intraoc 20.0 - [id number] - [id number] Implanted:Qty: 1 on 03/31/2021 by Migel Dejesus MD at OR [facility] Right: Eye BAUSCH & LOMB 12/22/2025 [id number] / [id number] / [id number] documented as of this encounter Visit Diagnoses Diagnosis Anxiety Anxiety state, unspecified documented in this encounter Advance Directives Healthcare Agents on File Name Relationship Healthcare Agent Relationshi p Communication Mimi Vieyra Adult Child Health Care Repr esentative (appointed verbally by patient or by statute hierarchy) Yanci Adkins Adult Child Health Care Repr esentative (appointed verbally by patient or by statute hierarchy) Care Teams Disc Pad Grinder Relationship Specialty Start Date End Date Randy Valentine MD [address] [place] [address] [place] [address] PCP - General Family Medicine 09/05/23 documented as of this encounter
--- OUTSIDE RECORDS SUMMARY | 2024-04-16 06:33 | External Medical Summary | Summary of Care ---
Author Name Unknown Organization [facility] Address [address] [place] [address] Phone [phone] Care Team Providers Care Strand Forming Machine Operator Name Role Phone Randy Valentine MD Primary Care Provide r Reason for Visit * Reason Onset Date Comments Medication Refill 03/24/2024 Encounter Details Date Type Department Care Team (Late st Contact Info) Description 03/24/2024 Refill Family Medicine [address] [phone] Randy Valentine MD [address] [place], [place] [address] [address] Anxiety Allergies Active Allergy Reactions Criticality [...] 1,000 mcgIndications:Vitamin B12 deficiency 1000 mcg IM [id number] 01/10/2024 12/11/2024 Active documented as of this [...] Taxonomy. Impaired fasting glucose 06/23/200607/2011 LOC PRIM [id number] 04/16/200609/24 LOC PRIM OSTEOARTH-ANKLE 04/16/2006 Sprain of [...] * Telephone Encounter - Bre Cobb [facility] - 03/26/2024 9:25 AM EDT Pending Prescriptions: Disp Refills ALPRAZolam 0.5 MG Oral Tablet (xaNAX) 60 Tab*0 Sig: TAKE ONE TABLET BY MOUTH EVERY MORNING AND EVENING if needed for anxiety * Telephone Encounter - Bre Cobb RP - 03/26/2024 9:15 AM EDT I have reviewed the patients controlled substance dispensing history in the Prescription Drug Monitoring Program in compliance with the [facility] regulations before prescribing a controlled substance. PDMP [...] medication is due for refill: 03/29/24 Pharmacy: [facility] [place] [address] Is this request for a controlled substance? Yes and Urine Drug Screen Not completed Toxicology results: No results found. However, due to the size of the patient record, not all encounters were searched.Please check Results Review for a complete set of results. Please approve if appropriate. Thanks, Bre Cobb [facility] Clinical Pharmacist [facility] ([facility]) [phone] * Telephone Encounter - Court Guajardo account manager trainee - 03/24/2024 4:43 PM EDT Did you pend patient's preferred pharmacy and medication before forwarding?yes Pharmacy: [facility] [address] [place] [address] Pending Prescriptions: Disp Refills ALPRAZolam 0.5 MG [...] 04/24/2024 3:30 PM EDT Office Visit Cardiology [address] [place] [phone] Herberth Denny PA-C [address] [place] [address] 04/25/2024 4:20 PM EDT Nurse Only Ancillary [address] [place] [address] [place], Nurse [address] [place] [address] 08/07/2024 3:30 PM EST Telemedicine Orthopaedics [address] [place] [phone] Otf Grier MD [address] [place] [address] Health Maintenance Due Date Last Done Comments DXA Scan 01/04/2023 01/05/2020, 01/04/2015 Colonoscopy 04/19/2023 04/19/2018, 03/26, 09/29/2014, Additional history exists CKD HGB USE SMARTSET 35140 01/20/202401/19, 01/19/2023, 07/03/2022, Additional history exists Adult [...] Additional history exists CKD PHOS USE SMARTSET 74856 10/08/202409/23, 07/03/2022, 05/11/2021, Additional history exists DTap/Tdap [...] this encounter Medical Devices Implanted Type Area Brinell Tester Device Identifier Shelf Expiration Date Model / Serial / Lot Lens Intraoc 19.5 - [id number] - [id number] Implanted:Qty: 1 on 03/17/2021 by Migel Dejesus MD at OR [facility] Left: Eye BAUSCH [employer] LOMB 10/22/2025 [id number] / [id number] / [id number] Lens Intraoc 20.0 - [id number] - [id number] Implanted:Qty: 1 on 03/31/2021 by Migel Dejesus MD at OR [facility] Right: Eye BAUSCH & LOMB 12/22/2025 [id number] / [id number] / [id number] documented as of this encounter Visit Diagnoses Diagnosis Anxiety Anxiety state, unspecified documented in this encounter Advance Directives Healthcare Agents on File Name Relationship Healthcare Agent Relationshi p Communication Mimi Vieyra Adult Child Health Care Repr esentative (appointed verbally by patient or by statute hierarchy) Yanci Adkins Adult Child Health Care Repr esentative (appointed verbally by patient or by statute hierarchy) Care Teams Strand Forming Machine Operator Relationship Specialty Start Date End Date Randy Valentine MD [address] [place] [address] [place] [phone] PCP - General Family Medicine 09/05/23 documented as of this encounter
--- OUTSIDE RECORDS SUMMARY | 2024-04-16 06:34 | External Medical Summary | Summary of Care ---
Author Name Unknown Organization [facility] Address [address] [place] [address] Phone [phone] Care Team Providers Care Turntable Operator Name Role Phone Rosemary Valentine MD Primary Care Provide r Encounter Details Date Type Department Care Team (Late st Contact Info) Description 03/13/2024 Population Health External Data Unspecified Department Allergies Active Allergy Reactions Criticality Noted Date Comments Codeine Nausea/vomiting 08/15/2011 Propoxyphene N-Acetaminophen Nausea/vomiting Low 08/24/2008 Iodinated Contrast Media Hives 02/06/2023 Iodine Hives 01/08/2001 Latex 09/26/2012 Contact dermititis Nitrofurantoin Rash 09/07/2014 Metformin 04/12/2021 documented as of this encounter (statuses as of 03/17/2024) Medications Medication Sig Dispensed Refills Start Date [...] current use of insulin ([facility]) Inject 0.75 mg under the [...] before bedtime. 24 g 3 02/20/2024 Active ALPRAZolam 0.5 MG Oral Tablet (xaNAX)Indications:An xiety TAKE ONE TABLET BY MOUTH EVERY MORNING AND EVENING if needed for anxiety 60 Tablet 02/28/2024 Active Triamcinolone Acetonide 0.1 % External Cream (Aristocort) Apply topically to affected area 2 times a day. To affected area. 60 g 1 03/05/2024 Active Ondansetron HCl 4 MG Oral Tablet (Zofran)Indications:N ausea without vomiting take 1 tablet every 6 hours as needed for nausea. 30 Tablet 2 03/12/2024 Active Hospital, Clinic, or Other Facility Administered Medication Ordered Dose Route Frequency Start Date End Date Status vitamin b-12 (Cyanocobalamin) inj 1,000 mcgIndications:Vitamin B12 deficiency 1000 mcg IM [id number] 01/10/2024 12/11/2024 Active documented as of this encounter (statuses as of 03/17/2024) Active Problems Problem Noted Date Diagnosed Date [...] as of this encounter (statuses as of 03/17/2024) Resolved Problems Problem Noted Date Diagnosed Date [...] Taxonomy. Impaired fasting glucose 06/23/200607/2011 LOC PRIM [id number] 04/16/200609/24 LOC PRIM OSTEOARTH-ANKLE 04/16/2006 Sprain of [...] as of this encounter (statuses as of 03/17/2024) Immunizations Name Administration Dates Next Due Pneumococcal [...] Preserve, IM 03/05/2017,03/22/2016,03/29/2015 Seasonal Influenza, Trivalen t, (IIV3), with Preserv, (Fluzone) 04/23/2014,04/21/2013,03/25/2012,03/25,03/25/2010,03/25/2009,04/06/2008 Seasonal Influenza, Trivalen t, Adjuvanted, 65+ YRS, [...] Care Team (Late st Contact Info) Description 03/25/2024 4:20 PM EDT Nurse Only Ancillary [address] [place] [address] [place], Nurse [address] [place] [address] 04/24/2024 3:30 PM EDT Office Visit Cardiology [address] [place] [address] Herberth Denny PAChidi [address] [place] [address] 08/07/2024 3:30 PM EST Telemedicine Orthopaedics [address] [place] [phone] Otf Grier MD [address] [place] [address] Health Maintenance Due Date Last Done Comments DXA Scan 01/04/2023 01/05/2020, 01/04/2015 Colonoscopy 04/19/2023 04/19/2018, 03/26, 09/29/2014, Additional history exists CKD HGB USE SMARTSET 67062 01/20/202401/19, 01/19/2023, 07/03/2022, Additional history exists Adult [...] Additional history exists CKD PHOS USE SMARTSET 34930 10/08/202409/23, 07/03/2022, 05/11/2021, Additional history exists DTap/Tdap [...] this encounter Medical Devices Implanted Type Area Broadcast Correspondent Device Identifier Shelf Expiration Date Model / Serial / Lot Lens Intraoc 19.5 - [id number] - [id number] Implanted:Qty: 1 on 03/17/2021 by Migel Dejesus MD at OR [facility] Left: Eye [employer]OM[employer] 10/22/2025 [id number] / [id number] / [id number] Lens Intraoc 20.0 - [id number] - [id number] Implanted:Qty: 1 on 03/31/2021 by Migel Dejesus MD at OR [facility] Right: Eye [employer]CH [employer] LOMB 12/22/2025 [id number] / [id number] / [id number] documented as of this encounter Advance Directives Healthcare Agents on File Name Relationship Healthcare Agent Relationshi p Communication Mimi Vieyra Adult Child Health Care Repr esentative (appointed verbally by patient or by statute hierarchy) Yanci Adkins Adult Child Health Care Repr esentative (appointed verbally by patient or by statute hierarchy) Care Teams Turntable Operator Relationship Specialty Start Date End Date Rosemary Valentine MD [address] [place] [address] [place] [address] PCP - General Family Medicine 09/05/23 documented as of this encounter
--- OUTSIDE RECORDS SUMMARY | 2024-04-16 06:34 | External Medical Summary | Summary of Care ---
Author Name Unknown Organization [facility] Address [address] [place] [address] Phone [phone] Care Team Providers Care Sampler Tester Name Role Phone Rosemary Valentine MD Primary Care Provide r Reason for Visit * Reason Onset Date Comments Medication Administration 03/25/2024 Flu an d/or Pneumo Inj Encounter Details Date Type Department Care Team (Late st Contact Info) Description 03/25/2024 4:20 PM EDT Nurse Only Ancillary [address] [place] [address] [place], Nurse [address] [place] [phone] Medication Administration (Flu and/or Pneu... Allergies Active Allergy Reactions Criticality Noted Date [...] joint 350 g 12/17/2023 Active OneTouch UltraSoft LancetsIndications:Ty pe 2 diabetes mellitus with stage 3a chronic kidney disease, without long-term current use of insulin ([facility]) Use once daily to [...] 1,000 mcgIndications:Vitamin B12 deficiency 1000 mcg IM [id number] 01/10/2024 12/11/2024 Active documented as of this [...] Taxonomy. Impaired fasting glucose 06/23/200607/2011 LOC PRIM [id number] 04/16/200609/24 LOC PRIM OSTEOARTH-ANKLE 04/16/2006 Sprain of [...] as of this encounter Progress Notes * Mini Diaz LPN - 03/25/2024 4:09 PM EDT Immunization Administration Documentation Time Out Procedure Performed: Yes Patient Identified (Ask Name/Date of ): Yes Does the patient have a fever greater than 101 degrees today? No Patient allergic to latex? No VFC Stock: No Injection(s) verified: Yes, Injection Name: vitamin B 12 Verified Side and Site: Yes Verified Shot(s) with Parent(s)/Patient: Yes documented in this encounter Nursing Notes * Mini Diaz LPN - 03/25/2024 4:16 PM EDT Pt only wanted vitamin B 12 today and didn't want flu vaccine, due to having cold sxs. documented in this encounter Plan of Treatment Upcoming Encounters Date Type Department Care Team (Late st Contact Info) Description 04/24/2024 3:30 PM EDT Office Visit Cardiology [address] [place] [address] Herberth Denny PA-C [address] [place] [address] 04/25/2024 4:20 PM EDT Nurse Only Ancillary [address] [place] [address] [place], Nurse [address] [place] [address] 08/07/2024 3:30 PM EST Telemedicine Orthopaedics [address] [place] [phone] Otf Grier MD [address] [place] [address] Health Maintenance Due Date Last Done Comments DXA Scan 01/04/2023 01/05/2020, 01/04/2015 Colonoscopy 04/19/2023 04/19/2018, 03/26, 09/29/2014, Additional history exists CKD HGB USE SMARTSET 45817 01/20/202401/19, 01/19/2023, 07/03/2022, Additional history exists Adult [...] Additional history exists CKD PHOS USE SMARTSET 74960 10/08/202409/23, 07/03/2022, 05/11/2021, Additional history exists DTap/Tdap [...] this encounter Medical Devices Implanted Type Area Custom Bike Builder Device Identifier Shelf Expiration Date Model / Serial / Lot Lens Intraoc 19.5 - [id number] - [id number] Implanted:Qty: 1 on 03/17/2021 by Migel Dejesus MD at OR [facility] Left: Eye [employer]OM[employer] 10/22/2025 [id number] / [id number] / [id number] Lens Intraoc 20.0 - [id number] - [id number] Implanted:Qty: 1 on 03/31/2021 by Migel Dejesus MD at OR [facility] Right: Eye [employer]CH [employer]OMB 12/22/2025 [id number] / [id number] / [id number] documented as of this encounter Visit Diagnoses Diagnosis Need for prophylactic vaccination and inoculation against influenza- Primary documented in this encounter Administered Medications Active Administered Medications - up to 3 most recent administrations Medication Order MAR Action Action Date Dose Rate Site vitamin b-12 (Cyanocobalamin) inj 1,000 mcg 1,000 mcg, Intramuscular, [id number], First dose on Ginger 01/10/24 at 1600, Last dose on Ginger 11/13/24 at 1600, For 12 doses Given 03/25/2024 4:15 PM EDT 1,000 mcg Deltoid Left Upper Given 02/26/2024 4:12 PM EDT 1,000 mcg De ltoid Right Upper Given 01/10/2024 3:32 PM EDT 1,000 mcg De ltoid Left Upper documented in this encounter Advance Directives Healthcare Agents on File Name Relationship Healthcare Agent Relationshi p Communication Mimi Vieyra Adult Child Health Care Repr esentative (appointed verbally by patient or by statute hierarchy) Yanci Adkins Adult Child Health Care Repr esentative (appointed verbally by patient or by statute hierarchy) Care Teams Sampler Tester Relationship Specialty Start Date End Date Rosemary Valentine MD [address] [place] [address] [place] [address] PCP - General Family Medicine 09/05/23 documented as of this encounter
--- OUTSIDE RECORDS SUMMARY | 2024-04-16 06:34 | External Medical Summary | Summary of Care ---
Author Name Unknown Organization [facility] Address [address] [place] [address] Phone [phone] Care Team Providers Care College Admissions Counselor Name Role Phone Rosemary Valentine MD Primary Care Provide r Reason for Visit * Reason Onset Date Comments Medication Administration 03/25/2024 Flu an d/or Pneumo Inj Encounter Details Date Type Department Care Team (Late st Contact Info) Description 03/25/2024 4:20 PM EDT Nurse Only Ancillary [address] [place] [address] [place], Nurse [address] [place] [phone] Medication Administration (Flu and/or Pneu... Allergies Active [...] long-term current use of insulin ([facility]) Use once daily to check [...] 1,000 mcgIndications:Vitamin B12 deficiency 1000 mcg IM [id number] 01/10/2024 12/11/2024 Active documented as of this [...] Taxonomy. Impaired fasting glucose 06/23/200607/2011 LOC PRIM [id number] 04/16/200609/24 LOC PRIM OSTEOARTH-ANKLE 04/16/2006 Sprain of [...] 04/24/2024 3:30 PM EDT Office Visit Cardiology [address] [place] [address] Herberth Denny PA-C [address] [place] [address] 04/25/2024 4:20 PM EDT Nurse Only Ancillary [address] [place] [address] [place], Nurse [address] [place] [address] 08/07/2024 3:30 PM EST Telemedicine Orthopaedics [address] [place] [phone] Otf Grier MD [address] [place] [address] Health Maintenance Due Date Last Done Comments DXA Scan 01/04/2023 01/05/2020, 01/04/2015 Colonoscopy 04/19/2023 04/19/2018, 03/26, 09/29/2014, Additional history exists CKD HGB USE SMARTSET 32968 01/20/202401/19, 01/19/2023, 07/03/2022, Additional history exists Adult [...] Additional history exists CKD PHOS USE SMARTSET 26386 10/08/202409/23, 07/03/2022, 05/11/2021, Additional history exists DTap/Tdap [...] this encounter Medical Devices Implanted Type Area Record Retrieval Specialist Device Identifier Shelf Expiration Date Model / Serial / Lot Lens Intraoc 19.5 - [id number] - [id number] Implanted:Qty: 1 on 03/17/2021 by Migel Dejesus MD at OR [facility] Left: Eye BAUSCH [employer] LOMB 10/22/2025 [id number] / [id number] / [id number] Lens Intraoc 20.0 - [id number] - [id number] Implanted:Qty: 1 on 03/31/2021 by Migel Dejesus MD at OR [facility] Right: Eye BAUSCH [employer] LOMB 12/22/2025 [id number] / [id number] / [id number] documented as of this encounter Visit Diagnoses Diagnosis Need for prophylactic vaccination and inoculation against influenza- Primary documented in this encounter Administered Medications Active Administered Medications - up to 3 most recent administrations Medication Order MAR Action Action Date Dose Rate Site vitamin b-12 (Cyanocobalamin) inj 1,000 mcg 1,000 mcg, Intramuscular, [id number], First dose on Ginger 01/10/24 at 1600, [...] patient or by statute hierarchy) Care Teams College Admissions Counselor Relationship Specialty Start Date End Date Rosemary Valentine MD [address] [place] [address] [place] [address] PCP - General Family Medicine 09/05/23 documented as of this encounter
--- OUTSIDE RECORDS SUMMARY | 2024-04-16 06:35 | External Medical Summary | Summary of Care ---
Author Name Unknown Organization [facility] Address [address] [place] [address] Phone [phone] Care Team Providers Care Pipe Blanks Cut Off Saw Operator Name Role Phone Rosemary Valentine MD Primary Care Provide r Reason for Visit * Reason Onset Date Comments Health Maintenance 01/23/2024 Encounter Details Date Type Department Care Team (Late st Contact Info) Description 01/23/2024 Telephone Family Medicine [address] [phone] Rosemary Valentine MD [address] [place], [place] [address] [address] Health Maintenance Allergies Active Allergy Reactions Criticality Noted Date Comments Codeine Nausea/vomiting 08/15/2011 Propoxyphene N-Acetaminophen Nausea/vomiting Low 08/24/2008 Iodinated Contrast Media Hives 02/06/2023 Iodine Hives 01/08/2001 Latex 09/26/2012 Contact dermititis Nitrofurantoin Rash 09/07/2014 Metformin 04/12/2021 documented as of this encounter (statuses as of 03/03/2024) Medications Medication Sig Dispensed Refills Start Date [...] without long-term current use of insulin ([facility]) Use up to 4 times a [...] without long-term current use of insulin ([facility]) Inject 0.75 mg under the skin once a week. (on Mondays) 6 mL 1 4 Active Olopatadine HCl 0.1 % Ophthalmic Solution (Pataday) Instill 1 Drop into both eyes in the morning and 1 Drop before bedtime. Active Loteprednol Etabonate 0.5 % Ophthalmic Suspension (Lotemax) Instill 1 Drop into both eyes 2 times a day. 3 Active Ondansetron HCl 4 MG Oral Tablet (Zofran)Indication s:Nausea without vomiting take 1 tablet every 6 hours as needed for nausea. 30 Tablet 2 4 Active OneTouch Verio In Vitro Strip (Glucose [...] Apply to affected joint 350 g 5 4 Active OneTouch UltraSoft LancetsIndications :Type 2 diabetes mellitus with stage 3a chronic kidney disease, without long-term current use of insulin (HCC) Use once daily to check glucose E11.9 100 Each 5 4 Active Eliquis 5 MG Oral Tablet (Apixaban) TAKE ONE TABLET BY MOUTH TWICE DAILY 60 Tablet 5 4 Active Metoprolol Succinate ER 25 MG Oral Tablet Extended Release 24 Hour (toPROL XL)Indications:Par oxysmal atrial fibrillation (HCC) TAKE THREE TABLETS BY MOUTH TWO TIMES A DAY 180 Tablet 5 4 Active hydroCHLOROthiazid e 12.5 MG Oral Tablet TAKE ONE TABLET BY MOUTH IN THE MORNING 90 Tablet 4 Active ASPIRIN 81 MG PO TABSIndications:he art Take 1 Tablet by mouth in the morning. 02/28/20 24 Discontinued(Pa tient preference/disc ontinuation) Iron-Vitamin C 65-125 MG Oral Tablet Take 1 Tablet by mouth in the morning. 90 Tab 3 6 02/28/20 24 Discontinued(Pa tient preference/disc ontinuation) Docusate Sodium 100 MG Oral Capsule (Colace) [...] every 8 hours as needed. 02/28/20 24 Discontinued(Pa tient preference/disc ontinuation) Rosuvastatin Calcium 10 MG Oral Tablet (Crestor)Indicatio ns:Dyslipidemia, goal LDL below 100 Take 1 Tablet by mouth in the morning. 90 Tablet 3 4 02/28/20 24 Discontinued(Pa tient preference/disc ontinuation) ALPRAZolam 0.5 MG Oral Tablet (xaNAX)Indications :Anxiety [...] 1,000 mcgIndications:Vitamin B12 deficiency 1000 mcg IM [id number] 01/10/2024 12/11/2024 Active documented as of this encounter (statuses as of 03/03/2024) Active Problems Problem Noted Date Diagnosed Date [...] as of this encounter (statuses as of 03/03/2024) Resolved Problems Problem Noted Date Diagnosed Date [...] Taxonomy. Impaired fasting glucose 06/23/200607/2011 LOC PRIM [id number] 04/16/200609/24 LOC PRIM OSTEOARTH-ANKLE 04/16/2006 Sprain of [...] as of this encounter (statuses as of 03/03/2024) Immunizations Name Administration Dates Next Due Pneumococcal [...] Influenza, Trivalen t, (IIV3), with Preserv, (Fluzone) 04/23/2014,04/21/2013,03/25/2012,06/2010,03/25/2010,03/25/2009,04/06/20 08,04/13/2003,04/14/2002,05/20/2001 04/13/2004 Seasonal Influenza, Trivalen t, Adjuvanted, 65+ YRS, [...] No 07/30/2023 Does the household have a [facility] source of income? (Household - for ages [...] encounter Miscellaneous Notes * Telephone Encounter - Charmaine Gonzalez LPN - 03/03/2024 9:01 AM EDT Unable to reach. Someone picks up but they won't answer to hello letter * Telephone Encounter - Charmaine Gonzalez LPN - 01/23/2024 2:44 PM EDT Care Gaps Comprehensive Care Outreach Last Office/Telemedicine Visit: 12/17/2023 (in office), Visit date not found (telemedicine) Next Office Visit: Visit date not found Hemoglobin AIC Results: Lab Results Component Value Date/Time HEMOGLOBIN A1C - [facility] 6.4 (H) 10/09/2023 03:34 PM HEMOGLOBIN A1C - [facility] 6.8 (H) 01/19/2023 02:48 PM HEMOGLOBIN A1C - [facility] 6.7 (H) 07/03/2022 03:01 PM HEMOGLOBIN A1C - [facility] 6.8 (H) 02/05/2020 03:05 PM HEMOGLOBIN A1C - [facility] 6.4 (H) 07/29/2019 04:37 PM HEMOGLOBIN A1C - [facility] 7.1 (H) 02/04/2019 04:53 PM BP Readings from Last 1 Encounters: 12/17/23 132/72 Reviewed Health Maintenance below: Health Maintenance Topic Date Due DXA Scan 01/04/2023 COVID-19 Vaccine ( - season) Never done Colonoscopy 04/19/2023 CKD HGB USE SMARTSET 66156 01/20/2024 Diabetic Foot Exam 01/30/2024 Depression Monitoring 01/30/2024 Influenza Vaccine (FLU shot) (1) 02/24/2024 TSH 03/19/2024 HbA1c 04/09/2024 Recapture Ov Labs fall Dexa Care Gap Outreach Action Taken: Unable to reach phone is answered but no one answers documented in this encounter Plan of Treatment Upcoming Encounters Date Type Department Care Team (Late st Contact Info) Description 03/14/2024 3:00 PM EDT Nurse Only Ancillary [address] [place] [address] [place], Nurse [address] [place] [address] 04/24/2024 3:30 PM EDT Office Visit Cardiology [address] [place] [address] Herberth Denny PA-C [address] [place] [address] 08/07/2024 3:30 PM EST Telemedicine Orthopaedics [address] [place] [phone] Otf Grier MD [address] [place] [address] Health Maintenance Due Date Last Done Comments DXA Scan 01/04/2023 01/05/2020, 01/04/2015 Colonoscopy 04/19/2023 04/19/2018, 03/26, 09/29/2014, Additional history exists CKD HGB USE SMARTSET 36419 01/20/202401/19, 01/19/2023, 07/03/2022, Additional history exists Adult [...] Additional history exists CKD PHOS USE SMARTSET 20181 10/08/202409/23, 07/03/2022, 05/11/2021, Additional history exists DTap/Tdap [...] encounter Medical Devices Implanted Type Area Senior Marketing Associate Device Identifier Shelf Expiration Date Model / Serial / Lot Lens Intraoc 19.5 - [id number] - [id number] Implanted:Qty: 1 on 03/17/2021 by Migel Dejesus MD at OR [facility] Left: Eye [employer]OMB 10/22/2025 [id number] / [id number] / [id number] Lens Intraoc 20.0 - [id number] - [id number] Implanted:Qty: 1 on 03/31/2021 by Migel Dejesus MD at OR [facility] Right: Eye BAUSCH [employer] LOMB 12/22/2025 [id number] / [id number] documented as of this encounter Advance Directives Healthcare Agents on File Name Relationship Healthcare Agent Relationshi p Communication Mimi Vieyra Adult Child Health Care Repr esentative (appointed verbally by patient or by statute hierarchy) Yanci Adkins Adult Child Health Care Repr esentative (appointed verbally by patient or by statute hierarchy) Care Teams Pipe Blanks Cut Off Saw Operator Relationship Specialty Start Date End Date Rosemary Valentine MD [address] [place] [address] [place] [phone] PCP - General Family Medicine 09/05/23 documented as of this encounter
--- OUTSIDE RECORDS SUMMARY | 2024-04-16 06:35 | External Medical Summary | Summary of Care ---
Author Name Unknown Organization [facility] Address [address] [place] [address] Phone [phone] Care Team Providers Care Roving Winder Name Role Phone Rosemary Valentine MD Primary Care Provide r Reason for Visit * Reason Onset Date Comments Med Request 03/04/2024 Encounter Details Date Type Department Care Team (Late st Contact Info) Description 03/04/2024 Telephone Family Medicine [address] [phone] Rosemary Valentine MD [address] [place], [place] [address] [address] Med Request Allergies Active Allergy Reactions Criticality Noted Date Comments Codeine Nausea/vomiting 08/15/2011 Propoxyphene N-Acetaminophen Nausea/vomiting Low 08/24/2008 Iodinated Contrast Media Hives 02/06/2023 Iodine Hives 01/08/2001 Latex 09/26/2012 Contact dermititis Nitrofurantoin Rash 09/07/2014 Metformin 04/12/2021 documented as of this encounter (statuses as of 03/12/2024) Medications Medication Sig Dispensed Refills Start Date [...] disease, without long-term current use of insulin ([facility]) Use up to 4 times a day [...] disease, without long-term current use of insulin ([facility]) Inject 0.75 mg under the skin once a week. (on Mondays) 6 mL 1 09/25/2023 Active Olopatadine HCl 0.1 % Ophthalmic Solution (Pataday) Instill 1 Drop into both eyes in the morning and 1 Drop before bedtime. Active Loteprednol Etabonate 0.5 % Ophthalmic Suspension (Lotemax) Instill 1 Drop into both eyes 2 times a day. 06/20/2023 Active Ondansetron HCl 4 MG Oral Tablet (Zofran)Indications:N ausea without vomiting take 1 tablet every 6 hours as needed for nausea. 30 Tablet 2 10/30/2023 Active OneTouch Verio In Vitro Strip (Glucose Blood)Indications:Typ e 2 diabetes mellitus with stage 3a chronic kidney disease, without long-term current use of insulin ([facility]) Use once daily to check glucose E11.9 100 Strip 10/30/2023 Active NATURAL SUPPLEMENT Take 1-2 Tablets [...] TABLET BY MOUTH TWICE DAILY 60 Tablet 01/01/2024 Active Metoprolol Succinate ER 25 MG Oral Tablet Extended Release 24 Hour (toPROL XL)Indications:Paroxy smal atrial fibrillation (HCC) TAKE THREE TABLETS BY MOUTH TWO TIMES A DAY 180 Tablet 01/01/2024 Active hydroCHLOROthiazide 12.5 MG Oral Tablet [...] affected area. 60 g 1 03/05/2024 Active Hospital, Clinic, or Other Facility Administered Medication Ordered Dose Route Frequency Start Date End Date Status vitamin b-12 (Cyanocobalamin) inj 1,000 mcgIndications:Vitamin B12 deficiency 1000 mcg IM [id number] 01/10/2024 12/11/2024 Active documented as of this encounter (statuses as of 03/12/2024) Active Problems Problem Noted Date Diagnosed Date [...] as of this encounter (statuses as of 03/12/2024) Resolved Problems Problem Noted Date Diagnosed Date [...] Taxonomy. Impaired fasting glucose 06/23/200607/2011 LOC PRIM [id number] 04/16/200609/24 LOC PRIM OSTEOARTH-ANKLE 04/16/2006 Sprain of [...] as of this encounter (statuses as of 03/12/2024) Immunizations Name Administration Dates Next Due Pneumococcal [...] Telephone Encounter - Rosemary Valentine MD - 03/05/2024 1:27 PM EDT Sent * Telephone Encounter - Marge Mart CPhT - 03/04/2024 11:10 AM EDT Patient calling to request a ordered for Triamcinolone Acetonide 0.1 % External Cream (Aristocort) sent to [facility] pharmacy , she is using on her hands for itching Thank you, Marge Mart Machine Heddle Cleaner II [facility] ([facility]) (formerly Telepharmacy) 03/04/2024 11:11 AM documented in this encounter Plan of Treatment Upcoming Encounters Date Type Department Care Team (Late st Contact Info) Description 03/14/2024 3:00 PM EDT Nurse Only Ancillary [address] [place] [address] [place], Nurse [address] [place] [address] 04/24/2024 3:30 PM EDT Office Visit Cardiology [address] [place] [address] Herberth Denny PA-C [address] [place] [address] 08/07/2024 3:30 PM EST Telemedicine Orthopaedics [address] [place] [phone] Otf Grier MD [address] [place] [address] Health Maintenance Due Date Last Done Comments DXA Scan 01/04/2023 01/05/2020, 01/04/2015 Colonoscopy 04/19/2023 04/19/2018, 03/26, 09/29/2014, Additional history exists CKD HGB USE SMARTSET 50624 01/20/202401/19, 01/19/2023, 07/03/2022, Additional history exists Adult [...] Additional history exists CKD PHOS USE SMARTSET 41339 10/08/202409/23, 07/03/2022, 05/11/2021, Additional history exists DTap/Tdap [...] this encounter Medical Devices Implanted Type Area Caser Device Identifier Shelf Expiration Date Model / Serial / Lot Lens Intraoc 19.5 - [id number] - [id number] Implanted:Qty: 1 on 03/17/2021 by Migel Dejesus MD at OR [facility] Left: Eye BAUSCH & LOMB 10/22/2025 [id number] / [id number] / [id number] Lens Intraoc 20.0 - [id number] - [id number] Implanted:Qty: 1 on 03/31/2021 by Migel Dejesus MD at OR [facility] Right: Eye BAUSCH & LOMB 12/22/2025 [id number] / [id number] / [id number] documented as of this encounter Advance Directives Healthcare Agents on File Name Relationship Healthcare Agent Relationshi p Communication Mimi Vieyra Adult Child Health Care Repr esentative (appointed verbally by patient or by statute hierarchy) Yanci Adkins Adult Child Health Care Repr esentative (appointed verbally by patient or by statute hierarchy) Care Teams Roving Winder Relationship Specialty Start Date End Date Rosemary Valentine MD [address] [place] [address] [place] [address] PCP - General Family Medicine 09/05/23 documented as of this encounter
--- OUTSIDE RECORDS SUMMARY | 2024-04-16 06:35 | External Medical Summary | Summary of Care ---
Author Name Unknown Organization [facility] Address [address] [place] [address] Phone [phone] Care Team Providers Care Auto Radiator Specialist Name Role Phone Rosemary Valentine MD Primary Care Provide r Reason for Visit * Reason Onset Date Comments Med Request 03/04/2024 Encounter Details Date Type Department Care Team (Late st Contact Info) Description 03/04/2024 Telephone Family Medicine [address] [phone] Rosemary Valentine MD [address] [place], [place] [address] [address] Med Request Allergies Active Allergy Reactions Criticality Noted Date Comments Codeine Nausea/vomiting 08/15/2011 Propoxyphene N-Acetaminophen Nausea/vomiting Low 08/24/2008 Iodinated Contrast Media Hives 02/06/2023 Iodine Hives 01/08/2001 Latex 09/26/2012 Contact dermititis Nitrofurantoin Rash 09/07/2014 Metformin 04/12/2021 documented as of this encounter (statuses as of 03/07/2024) Medications Medication Sig Dispensed Refills Start Date [...] current use of insulin ([facility]) Use up to 4 times a day [...] current use of insulin ([facility]) Inject 0.75 mg under the skin once [...] current use of insulin ([facility]) Use once daily to check glucose E11.9 [...] 1,000 mcgIndications:Vitamin B12 deficiency 1000 mcg IM [id number] 01/10/2024 12/11/2024 Active documented as of this encounter (statuses as of 03/07/2024) Active Problems Problem Noted Date Diagnosed Date [...] as of this encounter (statuses as of 03/07/2024) Resolved Problems Problem Noted Date Diagnosed Date [...] Taxonomy. Impaired fasting glucose 06/23/200607/2011 LOC PRIM [id number] 04/16/200609/24 LOC PRIM OSTEOARTH-ANKLE 04/16/2006 Sprain of [...] as of this encounter (statuses as of 03/07/2024) Immunizations Name Administration Dates Next Due Pneumococcal [...] 0.1 % External Cream (Aristocort) sent to [facility] pharmacy , she is using on her hands for itching Thank you, Marge Mart Museum Or [employer] Director II [facility] ([facility]) (formerly Telepharmacy) 03/04/2024 11:11 AM documented in this encounter Plan of Treatment Upcoming Encounters Date Type Department Care Team (Late st Contact Info) Description 03/14/2024 3:00 PM EDT Nurse Only Ancillary [address] [place] [address] [place], Nurse [address] [place] [address] 04/24/2024 3:30 PM EDT Office Visit Cardiology [address] [place] [address] Herberth Denny PA-C [address] [place] [address] 08/07/2024 3:30 PM EST Telemedicine Orthopaedics [address] [place] [phone] Otf Grier MD [address] [place] [address] Health Maintenance Due Date Last Done Comments DXA Scan 01/04/2023 01/05/2020, 01/04/2015 Colonoscopy 04/19/2023 04/19/2018, 03/26, 09/29/2014, Additional history exists CKD HGB USE SMARTSET 62323 01/20/202401/19, 01/19/2023, 07/03/2022, Additional history exists Adult [...] Additional history exists CKD PHOS USE SMARTSET 58857 10/08/202409/23, 07/03/2022, 05/11/2021, Additional history exists DTap/Tdap [...] this encounter Medical Devices Implanted Type Area Packaging Operator Device Identifier Shelf Expiration Date Model / Serial / Lot Lens Intraoc 19.5 - [id number] - [id number] Implanted:Qty: 1 on 03/17/2021 by Migel Dejesus MD at OR [facility] Left: Eye BAUSCH & LOMB 10/22/2025 [id number] / [id number] / [id number] Lens Intraoc 20.0 - [id number] - [id number] Implanted:Qty: 1 on 03/31/2021 by Migel Dejesus MD at OR [facility] Right: Eye BAUSCH & LOMB 12/22/2025 [id number] / [id number] / [id number] documented as of this encounter Advance Directives Healthcare Agents on File Name Relationship Healthcare Agent Relationshi p Communication Mimi Vieyra Adult Child Health Care Repr esentative (appointed verbally by patient or by statute hierarchy) Yanci Adkins Adult Child Health Care Repr esentative (appointed verbally by patient or by statute hierarchy) Care Teams Auto Radiator Specialist Relationship Specialty Start Date End Date Rosemary Valentine MD [address] [place] [address] [place] [address] PCP - General Family Medicine 09/05/23 documented as of this encounter
--- OUTSIDE RECORDS SUMMARY | 2024-04-16 06:35 | External Medical Summary | Summary of Care ---
Author Name Unknown Organization [facility] Address [address] [place] [address] Phone [phone] Care Team Providers Care Bulb Packer Name Role Phone Randy Valentine MD Primary Care Provide r Reason for Visit * Reason Onset Date Comments Medication Refill 03/11/2024 Encounter Details Date Type Department Care Team (Late st Contact Info) Description 03/11/2024 Refill Family Medicine [address] [phone] Randy Valentine MD [address] [place], [place] [address] [address] Nausea without vomiting Allergies Active Allergy [...] 02/20/2024 Active ALPRAZolam 0.5 MG Oral Tablet (xaNAX)Indications: [...] for nausea. 30 Tablet 2 03/12/2024 Active Ondansetron HCl 4 MG Oral Tablet (Zofran)Indications :Nausea without vomiting take 1 tablet every 6 hours as needed for nausea. 30 Tablet 2 10/30/2023 4 Discontinue d(Refill) Hospital, Clinic, or Other Facility Administered Medication Ordered Dose Route Frequency Start Date End Date Status vitamin b-12 (Cyanocobalamin) inj 1,000 mcgIndications:Vitamin B12 deficiency 1000 mcg IM [id number] 01/10/2024 12/11/2024 Active documented as of this [...] Taxonomy. Impaired fasting glucose 06/23/200607/2011 LOC PRIM [id number] 04/16/200609/24 LOC PRIM OSTEOARTH-ANKLE 04/16/2006 Sprain of [...] Telephone Encounter - Randy Valentine MD - 03/12/2024 3:23 PM EDT Signed Prescriptions: Disp Refills Ondansetron HCl 4 MG Oral Tablet (Zofran) 30 Tab*2 Sig: take 1 tablet every 6 hours as needed for nausea. Authorizing Provider: RANDY VALENTINE * Telephone Encounter - Sharon Barney [facility] - 03/12/2024 2:54 PM EDTPending Prescriptions: Disp Refills Ondansetron HCl 4 MG Oral Tablet (Zofran) 30 Tab*2 Sig: take 1 tablet every 6 hours as needed for nausea. * Telephone Encounter - Rayna Troy, hardwood faller - 03/11/2024 1:47 PM EDT Patient is up to date for office visits. Pending Prescriptions: Disp Refills Ondansetron HCl 4 MG Oral Tablet (Zofran) 30 Tab*2 Sig: take 1 tablet every 6 hours as needed for nausea. Last Visit: 12/17/2023 (in office), Visit date not found (telemedicine) Next Visit: Visit date not found If no future appointments scheduled, and last appointment is greater than a year ago, please schedule patient for a follow-up appointment Last date the medication was ordered: 10/30/2023 [facility]acy: [id number] [address] [facility] Is this request for a controlled substance?No it is not controlled. Urine Drug Screen:No results found. However, due [...] 03/14/2024 3:00 PM EDT Nurse Only Ancillary [address] [place] [address] [place], Nurse [address] [place] [address] 04/24/2024 3:30 PM EDT Office Visit Cardiology [address] [place] [address] Herberth Denny PA-C [address] [place] [address] 08/07/2024 3:30 PM EST Telemedicine Orthopaedics [address] [place] [phone] Otf Grier MD [address] [place] [address] Health Maintenance Due Date Last Done Comments DXA Scan 01/04/2023 01/05/2020, 01/04/2015 Colonoscopy 04/19/2023 04/19/2018, 03/26, 09/29/2014, Additional history exists CKD HGB USE SMARTSET 08886 01/20/202401/19, 01/19/2023, 07/03/2022, Additional history exists Adult [...] Additional history exists CKD PHOS USE SMARTSET 12061 10/08/202409/23, 07/03/2022, 05/11/2021, Additional history exists DTap/Tdap [...] this encounter Medical Devices Implanted Type Area Chummer Device Identifier Shelf Expiration Date Model / Serial / Lot Lens Intraoc 19.5 - [id number] - [id number] Implanted:Qty: 1 on 03/17/2021 by Migel Dejesus MD at OR [facility] Left: Eye BAUSCH & LOMB 10/22/2025 [id number] / [id number] / [id number] Lens Intraoc 20.0 - [id number] - [id number] Implanted:Qty: 1 on 03/31/2021 by Migel Dejesus MD at OR [facility] Right: Eye BAUSCH & LOMB 12/22/2025 [id number] / [id number] / [id number] documented as of this encounter Visit Diagnoses Diagnosis Nausea without vomiting documented in this encounter Advance Directives Healthcare Agents on File Name Relationship Healthcare Agent Relationshi p Communication Mimi Vieyra Adult Child Health Care Repr esentative (appointed verbally by patient or by statute hierarchy) Yanci Adkins Adult Child Health Care Repr esentative (appointed verbally by patient or by statute hierarchy) Care Teams Bulb Packer Relationship Specialty Start Date End Date Randy Valentine MD [address] [place] [address] [place] [address] PCP - General Family Medicine 09/05/23 documented as of this encounter
--- OUTSIDE RECORDS SUMMARY | 2024-04-16 06:36 | External Medical Summary | Summary of Care ---
Author Name Unknown Organization [facility] Address [address] [place] [address] Phone [phone] Care Team Providers Care Entry Level Sales Associate Name Role Phone Rosemary Valentine MD Primary Care Provide r Reason for Visit * Reason Comments Medication Administration Encounter Details Date Type Department Care Team (Late st Contact Info) Description 02/26/2024 4:20 PM EDT Nurse Only Ancillary [address] [place] [address] [place], Nurse [address] [place] [address] Medication Administration Allergies Active Allergy Reactions Criticality Noted Date Comments Codeine Nausea/vomiting 08/15/2011 Propoxyphene N-Acetaminophen Nausea/vomiting Low 08/24/2008 Iodinated Contrast Media Hives 02/06/2023 Iodine Hives 01/08/2001 Latex 09/26/2012 Contact dermititis Nitrofurantoin Rash 09/07/2014 Metformin 04/12/2021 documented as of this encounter (statuses as of 02/26/2024) Medications Medication Sig Dispensed Refills Start Date [...] a day E11.9 1 Kit 10/03/2021 Active Docusate Sodium 100 MG Oral Capsule [...] THE MORNING 90 Tablet 3 03/05/2023 Active Additional Information Patient not taking.Reported on 12/17/2023 Albuterol Sulfate HFA 108 (90 Base) MCG/ACT [...] eyes 2 times a day. 06/20/2023 Active Acetaminophen ER 650 MG Oral Tablet [...] the morning. 90 Tablet 3 10/29/2023 Active Additional Information Patient not taking.Reported on 12/10/2023 NATURAL SUPPLEMENT Take 1-2 Tablets by mouth [...] IN THE MORNING 90 Tablet 01/21/2024 Active ALPRAZolam 0.5 MG Oral Tablet (xaNAX)Indications:A nxiety take 1 tablet in the morning and evening if needed for anxiety 60 Tablet 01/31/2024 Active Irbesartan 150 MG Oral Tablet (Avapro) TAKE 1 TABLET BY MOUTH EVERY MORNING 90 Tablet 3 02/14/2024 Active Fluticasone-Salmeter ol 230-21 MCG/ACT Inhalation Aerosol (Advair) Inhale 2 Puffs by mouth in the morning and 2 Puffs before bedtime. 24 g 3 02/20/2024 Active Hospital, Clinic, or Other Facility Administered Medication Ordered Dose Route Frequency Start Date End Date Status vitamin b-12 (Cyanocobalamin) inj 1,000 mcgIndications:Vitamin B12 deficiency 1000 mcg IM [id number] 01/10/2024 12/11/2024 Active documented as of this encounter (statuses as of 02/26/2024) Active Problems Problem Noted Date Diagnosed Date [...] as of this encounter (statuses as of 02/26/2024) Resolved Problems Problem Noted Date Diagnosed Date [...] Taxonomy. Impaired fasting glucose 06/23/200607/2011 LOC PRIM [id number] 04/16/200609/24 LOC PRIM OSTEOARTH-ANKLE 04/16/2006 Sprain of [...] as of this encounter (statuses as of 02/26/2024) Immunizations Name Administration Dates Next Due Pneumococcal [...] No 07/30/2023 Does the household have a [facility] source of income? (Household - for ages [...] 03/14/2024 3:00 PM EDT Nurse Only Ancillary [address] [place] [address] [place] Nurse [address] [place] [address] 04/24/2024 3:30 PM EDT Office Visit Cardiology [address] [place] [address] [facility] [place] [address] 08/07/2024 3:30 PM EST Telemedicine Orthopaedics [address] [place] [phone] Otf Grier MD [address] [place] [address] Health Maintenance Due Date Last Done Comments DXA Scan 01/04/2023 01/05/2020, 01/04/2015 Colonoscopy 04/19/2023 04/19/2018, 03/26, 09/29/2014, Additional history exists CKD HGB USE SMARTSET 68591 01/20/202401/19, 01/19/2023, 07/03/2022, Additional history exists Adult [...] Additional history exists CKD PHOS USE SMARTSET 39560 10/08/202409/23, 07/03/2022, 05/11/2021, Additional history exists DTap/Tdap [...] this encounter Medical Devices Implanted Type Area Stone Setter Metal Optical Frames Device Identifier Shelf Expiration Date Model / Serial / Lot Lens Intraoc 19.5 - [id number] - [id number] Implanted:Qty: 1 on 03/17/2021 by Migel Dejesus MD at OR [facility] Left: Eye BAUSCH & LOMB 10/22/2025 [id number] / [id number] / [id number] Lens Intraoc 20.0 - [id number] - [id number] Implanted:Qty: 1 on 03/31/2021 by Migel Dejesus MD at OR [facility] Right: Eye BAUSCH & LOMB 12/22/2025 [id number] / [id number] / [id number] documented as of this encounter Administered Medications Active Administered Medications - up to 3 most recent administrations Medication Order MAR Action Action Date Dose Rate Site vitamin b-12 (Cyanocobalamin) inj 1,000 mcg 1,000 mcg, Intramuscular, [id number], First dose on Ginger 01/10/24 at 1600, Last dose on Ginger 11/13/24 at 1600, For 12 doses Given 02/26/2024 4:12 PM EDT 1,000 mcg Deltoid Right Upper Given 01/10/2024 3:32 PM EDT [...] patient or by statute hierarchy) Care Teams Entry Level Sales Associate Relationship Specialty Start Date End Date Rosemary Valentine MD [address] [place] [address] [place] [address] PCP - General Family Medicine 09/05/23 documented as of this encounter
--- OUTSIDE RECORDS SUMMARY | 2024-04-16 06:36 | External Medical Summary | Summary of Care ---
Author Name Unknown Organization [facility] Address [address] [place] [address] Phone [phone] Care Team Providers Care Molded Frames Assembler Name Role Phone Rosemary Valentine MD Primary Care Provide r Reason for Visit * Reason Onset Date Comments medication change 02/19/2024 Encounter Details Date Type Department Care Team (Late st Contact Info) Description 02/19/2024 Telephone Family Medicine [address] [phone] Rosemary Valentine MD [address] [place], [place] [address] [address] medication change Allergies Active Allergy Reactions Criticality Noted Date Comments Codeine Nausea/vomiting 08/15/2011 Propoxyphene N-Acetaminophen Nausea/vomiting Low 08/24/2008 Iodinated Contrast Media Hives 02/06/2023 Iodine Hives 01/08/2001 Latex 09/26/2012 Contact dermititis Nitrofurantoin Rash 09/07/2014 Metformin 04/12/2021 documented as of this encounter (statuses as of 02/21/2024) Medications Medication Sig Dispensed Refills Start Date [...] mL 11 2 Active OneTouch Verio w/Device KitIndications:Type 2 diabetes mellitus with stage 3a chronic kidney disease, without long-term current use of insulin (HCC) Use up to 4 times a day E11.9 1 Kit 2 Active Docusate Sodium 100 MG Oral Capsule [...] 3 Active Ezetimibe 10 MG Oral Tablet (Zetia)Indications: Dyslipidemia, goal LDL below 70 TAKE ONE TABLET BY MOUTH IN THE MORNING 90 Tablet 3 3 Active Additional Information Patient not taking.Reported on [...] eyes 2 times a day. 3 Active Acetaminophen ER 650 MG Oral [...] glucose E11.9 100 Strip 5 4 Active Rosuvastatin Calcium 10 MG Oral Tablet (Crestor)Indication s:Dyslipidemia, goal LDL below 100 Take 1 Tablet by mouth in the morning. 90 Tablet 3 4 Active Additional Information Patient not taking.Reported [...] 350 g 5 4 Active OneTouch UltraSoft LancetsIndications: Type 2 diabetes [...] A DAY 180 Tablet 5 4 Active hydroCHLOROthiazide 12.5 MG Oral Tablet TAKE ONE TABLET BY MOUTH IN THE MORNING 90 Tablet 4 Active ALPRAZolam 0.5 MG Oral Tablet (xaNAX)Indications: Anxiety take 1 tablet in the morning and evening if needed for anxiety 60 Tablet 4 Active Irbesartan 150 MG Oral Tablet (Avapro) TAKE 1 TABLET BY MOUTH EVERY MORNING 90 Tablet 3 4 Active Fluticasone-Salmete rol 230-21 MCG/ACT Inhalation Aerosol (Advair) Inhale 2 Puffs by mouth in the morning and 2 Puffs before bedtime. 24 g 3 4 Active Fluticasone Furoate-Vilanterol 100-25 MCG/ACT Inhalation Aerosol Powder Breath Activated (BREO ellipta) Inhale 1 Puff by mouth in the morning. 90 Each 3 4 02/20/20 24 Discontinued Hospital, Clinic, or Other Facility Administered Medication Ordered Dose Route Frequency Start Date End Date Status vitamin b-12 (Cyanocobalamin) inj 1,000 mcgIndications:Vitamin B12 deficiency 1000 mcg IM [id number] 01/10/2024 12/11/2024 Active documented as of this encounter (statuses as of 02/21/2024) Active Problems Problem Noted Date Diagnosed Date [...] as of this encounter (statuses as of 02/21/2024) Resolved Problems Problem Noted Date Diagnosed Date [...] Taxonomy. Impaired fasting glucose 06/23/200607/2011 LOC PRIM [id number] 04/16/200609/24 LOC PRIM OSTEOARTH-ANKLE 04/16/2006 Sprain of [...] as of this encounter (statuses as of 02/21/2024) Immunizations Name Administration Dates Next Due Pneumococcal [...] encounter Miscellaneous Notes * Addendum Note - Rosemary Valentine MD - 02/20/2024 1:49 PM EDTAddended by: ROSEMARY VALENTINE on: 02/20/2024 01:49 PM Modules accepted: Orders * Telephone Encounter - Rosemary Valentine MD - 02/20/2024 1:48 PM EDT I am not sure what may be cheaper. We could consider sending Trelegy to [facility] mail order. The mail order is much cheaper than a retail pharmacy. In the meantime, I sent Advair to [facility] to see if that is any cheaper/works better. * Telephone Encounter - Yasmin Raymundo RN - 02/20/2024 7:46 AM EDT Pt used to be on Trelegy, but her insurance no longer covers that. Please advise on alternative forBREO. Pt states it is not helping and it cost her $140 co-pay * Telephone Encounter - Bry Gan PHARM Tech - 02/19/2024 2:34 PM EDT Patient is calling to request something different other than Fluticasone Furoate-Vilanterol 100-25 MCG/ACT Inhalation Aerosol Powder Breath Activated (BREO ellipta), she states that the copay is $140 She states she is having trouble breathing even while using the breo, she is hoping to go back to using what she was previously on. Please advise, Thank you, Caleb Gan, Ski Maker Bilingual Speech Therapist [facility] ([facility] (Formerly [facility]) 02/19/2024,2:36 PM documented in this encounter Plan of Treatment Upcoming Encounters Date Type Department Care Team (Late st Contact Info) Description 02/26/2024 4:20 PM EDT Nurse Only Ancillary [address] [place] [address] [facility] Nurse [address] [place] [address] 03/14/2024 3:00 PM EDT Nurse Only Ancillary [address] [place] [address] Samantha, Nurse [address] [place] [address] 04/24/2024 3:30 PM EDT Office Visit Cardiology [address] [place] [address] Herberth Denny PA-C [address] [place] [address] 08/07/2024 3:30 PM EST Telemedicine Orthopaedics [address] [place] [phone] Otf Grier MD [address] [place] [address] Health Maintenance Due Date Last Done Comments DXA Scan 01/04/2023 01/05/2020, 01/04/2015 COVID-19 Vaccine ( season) 2023 Colonoscopy 04/19/2023 04/19/2018, 03/26, 09/29/2014, Additional history exists CKD HGB USE SMARTSET 49992 01/20/202401/19, 01/19/2023, 07/03/2022, Additional history exists Adult Wellness Visit 01/30/2024 01/29/2023, 01/24/20 22 Depression Monitoring 01/30/2024 01/29/2023 Diabetic Foot Exam 01/30/2024 01/29/2023, 0 01/23/2022, 12/20/2020, Additional history exists Influenza Vaccine (FLU shot) (#1) 2024 03/05/2023, 02/23/2022, 05/11/2021, Additional history exists TSH 03/19/2024 03/19/2023, 12/24, 11/27/2022, Additional history exists HbA1c 04/09/2024 10/09/2023, 12/24, 07/03/2022, Additional history exists GFR 07/12/2024 01/10/2024, 09/23, 01/19/2023, Additional history exists Diabetic Eye Exam 09/27/2024 09/28/2023, , 08/15/2022, Additional history exists Albumin/Creatinine Ratio 10/08/2024 024, 08/04/2022, 05/11/2021, Additional history exists CKD PHOS USE SMARTSET 90304 10/08/202409/23, 07/03/2022, 05/11/2021, Additional history exists DTap/Tdap [...] this encounter Medical Devices Implanted Type Area Steam Room Attendant Device Identifier Shelf Expiration Date Model / Serial / Lot Lens Intraoc 19.5 - [id number] - [id number] Implanted:Qty: 1 on 03/17/2021 by Migel Dejesus MD at [facility] Left: Eye [employer]OMB 10/22/2025 [id number] / [id number] / [id number] Lens Intraoc 20.0 - [id number] - [id number] Implanted:Qty: 1 on 03/31/2021 by Migel Dejesus MD at OR [facility] Right: Eye BAUSCH [employer] LOMB 12/22/2025 [id number] / [id number] / [id number] documented as of this encounter Advance Directives Healthcare Agents on File Name Relationship Healthcare Agent Relationshi p Communication Mimi Jarrell Adult Child Health Care Repr esentative (appointed verbally by patient or by statute hierarchy) Yanci Adkins Adult Child Health Care Repr esentative (appointed verbally by patient or by statute hierarchy) Care Teams Molded Frames Assembler Relationship Specialty Start Date End Date Rosemary Valentine MD [address] [place] [address] [place] [address] PCP - General Family Medicine 09/05/23 documented as of this encounter
--- OUTSIDE RECORDS SUMMARY | 2024-04-16 06:36 | External Medical Summary | Summary of Care ---
Author Name Unknown Organization [facility] Address [address] [place] [address] Phone [phone] Care Team Providers Care Permaculture Designer Name Role Phone Rosemary Valentine MD Primary Care Provide r Reason for Visit * Reason Onset Date Comments medication change 02/19/2024 Encounter Details Date Type Department Care Team (Late st Contact Info) Description 02/19/2024 Telephone Family Medicine [address] [phone] Rosemary Valentine MD [address] [place], [place] [address] [address] medication change Allergies Active Allergy Reactions Criticality Noted Date Comments Codeine Nausea/vomiting 08/15/2011 Propoxyphene N-Acetaminophen Nausea/vomiting Low 08/24/2008 Iodinated Contrast Media Hives 02/06/2023 Iodine Hives 01/08/2001 Latex 09/26/2012 Contact dermititis Nitrofurantoin Rash 09/07/2014 Metformin 04/12/2021 documented as of this encounter (statuses as of 02/22/2024) Medications Medication Sig Dispensed Refills Start Date [...] 1,000 mcgIndications:Vitamin B12 deficiency 1000 mcg IM [id number] 01/10/2024 12/11/2024 Active documented as of this encounter (statuses as of 02/22/2024) Active Problems Problem Noted Date Diagnosed Date [...] as of this encounter (statuses as of 02/22/2024) Resolved Problems Problem Noted Date Diagnosed Date [...] Taxonomy. Impaired fasting glucose 06/23/200607/2011 LOC PRIM [id number] 04/16/200609/24 LOC PRIM OSTEOARTH-ANKLE 04/16/2006 Sprain of [...] as of this encounter (statuses as of 02/22/2024) Immunizations Name Administration Dates Next Due Pneumococcal [...] encounter Miscellaneous Notes * Telephone Encounter - Maria Luisa [place] CMA - 02/22/2024 3:51 PM EDT Message left for patient that alternative left at [facility]. * Addendum Note - Rosemary Valentine MD - 02/20/2024 1:49 PM EDTAddended by: ROSEMARY VALENTINE on: 02/20/2024 01:49 PM Modules accepted: Orders * Telephone Encounter - Rosemary Valentine MD - 02/20/2024 1:48 PM EDT I am not sure what may be cheaper. We could consider sending Trelegy to [facility] mail [facility]. The mail order is much [...] co-pay * Telephone Encounter - Bry Gan panel machine tender - 02/19/2024 2:34 PM EDT Patient is calling to request something different other than Fluticasone Furoate-Vilanterol 100-25 MCG/ACT Inhalation Aerosol Powder Breath Activated (BREO ellipta), she states that the copay is $140 She states she is having trouble breathing even while using the breo, she is hoping to go back to using what she was previously on. Please advise, Thank you, Caleb Gan, Letterer Tube Machine Operator 1 [facility] ([facility]) (Formerly Telepharmacy) 02/19/2024,2:36 PM documented in this encounter Plan of Treatment Upcoming Encounters Date Type Department Care Team (Late st Contact Info) Description 02/26/2024 4:20 PM EDT Nurse Only Ancillary [address] [place] [address] Samantha, Nurse [address] [place] [address] 03/14/2024 3:00 PM EDT Nurse Only Ancillary [address] [place] [address] Samantha, Nurse [address] [place] [address] 04/24/2024 3:30 PM EDT Office Visit Cardiology [address] [place] [address] Herberth Denny PA-C [address] [place] [address] 08/07/2024 3:30 PM EST Telemedicine Orthopaedics [address] [place] [phone] Otf Grier MD [address] [place] [address] Health Maintenance Due Date Last Done Comments DXA Scan 01/04/2023 01/05/2020, 01/04/2015 COVID-19 Vaccine ( season) 2023 Colonoscopy 04/19/2023 04/19/2018, 03/26, 09/29/2014, Additional history exists CKD HGB USE SMARTSET 17070 01/20/202401/19, 01/19/2023, 07/03/2022, Additional history exists Adult [...] Additional history exists CKD PHOS USE SMARTSET 39774 10/08/202409/23, 07/03/2022, 05/11/2021, Additional history exists DTap/Tdap [...] encounter Medical Devices Implanted Type Area Music Publisher Device Identifier Shelf Expiration Date Model / Serial / Lot Lens Intraoc 19.5 - [id number] - [id number] Implanted:Qty: 1 on 03/17/2021 by Migel Dejesus MD at OR [facility] Left: Eye [employer]OM[employer] 10/22/2025 [id number] / [id number] / [id number] Lens Intraoc 20.0 - [id number] - [id number] Implanted:Qty: 1 on 03/31/2021 by Migel Dejesus MD at OR [facility] Right: Eye BAUSCH [employer] LOMB 12/22/2025 [id number] / [id number] / [id number] documented as of this encounter Advance Directives Healthcare Agents on File Name Relationship Healthcare Agent Relationshi p Communication Mimi Vieyra Adult Child Health Care Repr esentative (appointed verbally by patient or by statute hierarchy) Yanci Adkins Adult Child Health Care Repr esentative (appointed verbally by patient or by statute hierarchy) Care Teams Permaculture Designer Relationship Specialty Start Date End Date Rosemary Valentine MD [address] [place] [address] [place] [address] PCP - General Family Medicine 09/05/23 documented as of this encounter
--- OUTSIDE RECORDS SUMMARY | 2024-04-16 06:36 | External Medical Summary | Summary of Care ---
Author Name Unknown Organization [facility] Address [address] [place] [address] Phone [phone] Care Team Providers Care Hadoop Software Engineer Name Role Phone Rosemary Valentine MD Primary Care Provide r Reason for Visit * Reason Comments eRx-Medication Refill Encounter Details Date Type Department Care Team (Late st Contact Info) Description 02/26/2024 Refill Family Medicine [address] [phone] Rosemary Valentine MD [address] [place] [address] [place] [address] Anxiety Allergies Active Allergy Reactions Criticality Noted Date Comments Codeine Nausea/vomiting 08/15/2011 Propoxyphene N-Acetaminophen Nausea/vomiting Low 08/24/2008 Iodinated Contrast Media Hives 02/06/2023 Iodine Hives 01/08/2001 Latex 09/26/2012 Contact dermititis Nitrofurantoin Rash 09/07/2014 Metformin 04/12/2021 documented as of this encounter (statuses as of 02/28/2024) Medications Medication Sig Dispensed Refills Start Date [...] disease, without long-term current use of insulin ([facility]) Use up to 4 times a day [...] disease, without long-term current use of insulin ([facility]) Inject 0.75 mg under the skin once [...] IN THE MORNING 90 Tablet 4 Active Irbesartan 150 MG Oral Tablet (Avapro) TAKE 1 TABLET BY MOUTH EVERY MORNING 90 Tablet 3 4 Active Fluticasone-Salmet moy 230-21 MCG/ACT Inhalation Aerosol (Advair) Inhale 2 Puffs by mouth in the morning and 2 Puffs before bedtime. 24 g 3 4 Active ALPRAZolam 0.5 MG Oral Tablet (xaNAX)Indications :Anxiety TAKE ONE TABLET BY MOUTH EVERY MORNING AND EVENING if needed for anxiety 60 Tablet 4 Active ASPIRIN 81 MG PO TABSIndications:he art Take 1 Tablet by mouth in the morning. 02/28/20 24 Discontinued(Cade darling preference/disc ontinuation) Iron-Vitamin C 65-125 MG Oral [...] 3 02/28/20 24 Discontinued(Pa tient preference/disc ontinuation) Acetaminophen ER 650 MG Oral Tablet Extended [...] if needed for anxiety 60 Tablet 4 02/28/20 24 Discontinued Hospital, Clinic, or Other Facility Administered Medication Ordered Dose Route Frequency Start Date End Date Status vitamin b-12 (Cyanocobalamin) inj 1,000 mcgIndications:Vitamin B12 deficiency 1000 mcg IM [id number] 01/10/2024 12/11/2024 Active documented as of this encounter (statuses as of 02/28/2024) Active Problems Problem Noted Date Diagnosed Date [...] as of this encounter (statuses as of 02/28/2024) Resolved Problems Problem Noted Date Diagnosed Date [...] Taxonomy. Impaired fasting glucose 06/23/200607/2011 LOC PRIM [id number] 04/16/200609/24 LOC PRIM OSTEOARTH-ANKLE 04/16/2006 Sprain of [...] as of this encounter (statuses as of 02/28/2024) Immunizations Name Administration Dates Next Due Pneumococcal [...] No 07/30/2023 [address] the household have a [facility] source of income? (Household - for [...] Telephone Encounter - Gale Chapman MD - 02/28/2024 10:34 AM EDTSigned Prescriptions: Disp Refills ALPRAZolam 0.5 MG Oral Tablet (xaNAX) 60 Tab*0 Sig: TAKE ONE TABLET BY MOUTH EVERY MORNING AND EVENING if needed for anxiety Authorizing Provider: GALE CHAPMAN * Telephone Encounter - Kaylie Cruz [facility] - 02/28/2024 8:55 AM EDT Pending Prescriptions: Disp Refills ALPRAZolam 0.5 MG Oral Tablet [Pharmacy Me*60 Tab*0 Sig: TAKE ONE TABLET BY MOUTH EVERY MORNING AND EVENING if needed for anxiety * Telephone Encounter - Kaylie Cruz [facility] - 02/28/2024 8:54 AM EDT Pending Prescriptions: Disp Refills ALPRAZolam 0.5 MG Oral Tablet [Pharmacy Me*60 Tab*0 Sig: TAKE ONE TABLET BY MOUTH EVERY MORNING AND EVENING if needed for anxiety * Telephone Encounter - Kaylie Crzu [facility] - 02/28/2024 8:54 AM EDT I have reviewed the patients controlled substance dispensing history in the Prescription Drug Monitoring Program in compliance with the [facility] regulations before prescribing a controlled substance. PDMP checked on 02/28/2024. Pending Prescriptions: Disp Refills ALPRAZolam 0.5 MG Oral Tablet (xaNAX) [Ph*60 Tab*0 Sig: TAKE ONE TABLET BY MOUTH EVERY MORNING AND EVENING if needed for anxiety Last Visit: 12/17/2023 (in office), Visit date not found (telemedicine) Next Visit: Visit date not found Date medication was last filled: 01/31/24 Date medication is due for refill: 02/29/24 Pharmacy: [facility] [id number] Is this request for a controlled substance? Yes and Urine Drug Screen Not completed Toxicology results: No results found. However, due to the size of the patient record, not all encounters were searched.Please check Results Review for a complete set of results. Please approve if appropriate. Thank You Kaylie Cruz PharmD Clinical Pharmacist [facility] ([facility]) [phone] / [phone] 02/28/2024, 8:54 AM * Telephone Encounter - Tracy Ashraf PHARM Tech - 02/27/2024 10:30 AM EDT Did you pend patient's preferred pharmacy and medication before forwarding?yes Pharmacy: [facility] [id number] Pending Prescriptions: Disp Refills ALPRAZolam 0.5 MG Oral Tablet (xaNAX) [Ph*60 Tab*0 Sig: TAKE ONE TABLET BY MOUTH [...] substance?Yes, What was the last refill date 01/30 w/ quantity 60 and dosage 0.5 mg [...] 3:00 PM EDT Nurse Only Ancillary [address] [place] [address] Samantha, Nurse [address] [place] [address] 04/24/2024 3:30 PM EDT Office Visit Cardiology [address] [place] [address] Herberth Denny PA-C [address] [facility] [place] [address] 08/07/2024 3:30 PM EST Telemedicine Orthopaedics [address] [place] [phone] Otf Grier MD [address] [place] [address] Health Maintenance Due Date Last Done Comments DXA Scan 01/04/2023 01/05/2020, 01/04/2015 Colonoscopy 04/19/2023 04/19/2018, 03/26, 09/29/2014, Additional history exists CKD HGB USE SMARTSET 92412 01/20/202401/19, 01/19/2023, 07/03/2022, Additional history exists Adult [...] Additional history exists CKD PHOS USE SMARTSET 46992 10/08/202409/23, 07/03/2022, 05/11/2021, Additional history exists DTap/Tdap [...] this encounter Medical Devices Implanted Type Area Asphalt Tar And Gravel Roofer Device Identifier Shelf Expiration Date Model / Serial / Lot Lens Intraoc 19.5 - [id number] - [id number] Implanted:Qty: 1 on 03/17/2021 by Migel Dejesus MD at OR [facility] Left: Eye BAUSCH [employer] LOMB 10/22/2025 [id number] / [id number] / [id number] Lens Intraoc 20.0 - [id number] - [id number] Implanted:Qty: 1 on 03/31/2021 by Migel Dejesus MD at OR [facility] Right: Eye BAUSCH & LOMB 12/22/2025 [id number] / [id number] / [id number] documented as of this encounter Visit Diagnoses Diagnosis Anxiety Anxiety state, unspecified documented in this encounter Advance Directives Healthcare Agents on File Name Relationship Healthcare Agent Relationshi p Communication Mimi Vieyra Adult Child Health Care Repr esentative (appointed verbally by patient or by statute hierarchy) Yanci Adkins Adult Child Health Care Repr esentative (appointed verbally by patient or by statute hierarchy) Care Teams Hadoop Software Engineer Relationship Specialty Start Date End Date Rosemary [place] MD [address] [place] [address] [place] [address] PCP - General Family Medicine 09/05/23 documented as of this encounter
--- OUTSIDE RECORDS SUMMARY | 2024-04-16 06:40 | External Medical Summary | Summary of Care ---
Author Name Unknown Organization [facility] Address [address] [place] [address] Phone [phone] Care Team Providers Care Market Master Name Role Phone oRsemary Valentine MD Primary Care Provide r Reason for Visit * Reason Onset Date Comments medication change 02/19/2024 Encounter Details Date Type Department Care Team (Late st Contact Info) Description 02/19/2024 Telephone Family Medicine [address] [phone] Rosemary Valentine MD [address] [place], [place] [address] [address] medication change Allergies Active Allergy Reactions Criticality Noted Date Comments Codeine Nausea/vomiting 08/15/2011 Propoxyphene N-Acetaminophen Nausea/vomiting Low 08/24/2008 Iodinated Contrast Media Hives 02/06/2023 Iodine Hives 01/08/2001 Latex 09/26/2012 Contact dermititis Nitrofurantoin Rash 09/07/2014 Metformin 04/12/2021 documented as of this encounter (statuses as of 02/20/2024) Medications Medication Sig Dispensed Refills Start Date [...] long-term current use of insulin ([facility]) Use once daily to check [...] A DAY 180 Tablet 5 01/01/2024 Active Fluticasone Furoate-Vilanterol 100-25 MCG/ACT Inhalation Aerosol Powder Breath Activated (BREO ellipta) Inhale 1 Puff by mouth in the morning. 90 Each 3 01/01/2024 Active hydroCHLOROthiazide 12.5 MG Oral Tablet TAKE ONE TABLET BY MOUTH IN THE MORNING 90 Tablet 01/21/2024 Active ALPRAZolam 0.5 MG Oral Tablet (xaNAX)Indications:A nxiety take 1 tablet in the morning and evening if needed for anxiety 60 Tablet 01/31/2024 Active Irbesartan 150 MG Oral Tablet (Avapro) TAKE 1 TABLET BY MOUTH EVERY MORNING 90 Tablet 3 02/14/2024 Active Hospital, Clinic, or Other Facility Administered Medication Ordered Dose Route Frequency Start Date End Date Status vitamin b-12 (Cyanocobalamin) inj 1,000 mcgIndications:Vitamin B12 deficiency 1000 mcg IM [id number] 01/10/2024 12/11/2024 Active documented as of this encounter (statuses as of 02/20/2024) Active Problems Problem Noted Date Diagnosed Date [...] as of this encounter (statuses as of 02/20/2024) Resolved Problems Problem Noted Date Diagnosed Date [...] Taxonomy. Impaired fasting glucose 06/23/200607/2011 LOC PRIM [id number] 04/16/200609/24 LOC PRIM OSTEOARTH-ANKLE 04/16/2006 Sprain of [...] as of this encounter (statuses as of 02/20/2024) Immunizations Name Administration Dates Next Due Pneumococcal [...] Influenza, Split, I IV3, With Preserve, Inj 04/23/2014,04/21/2013,03/25/2012,06/2010,03/25/2010,03/25/2009,04/06/20,04/13/2003,04/14/2002,05/20/2001 04/13/2004 Seasonal Influenza, Trivalen t, Adjuvanted, 65+ [...] No 07/30/2023 Does the household have a [facility] source of income? (Household - for ages [...] $140 co-pay * Telephone Encounter - Bry Gan, claims supervisor - 02/19/2024 2:34 PM EDT Patient is calling to request something different other than Fluticasone Furoate-Vilanterol 100-25 MCG/ACT Inhalation Aerosol Powder Breath Activated (BREO ellipta), she states that the copay is $140 She states she is having trouble breathing even while using the breo, she is hoping to go back to using what she was previously on. Please advise, Thank you, Caleb Gan, Liability Claims Adjuster Papeterie Table Assembler 1 [facility] ([facility]) (Formerly Telepharmacy) 02/19/2024,2:36 PM documented in this encounter Plan of Treatment Upcoming Encounters Date Type Department Care Team (Late st Contact Info) Description 02/26/2024 4:20 PM EDT Nurse Only Ancillary [address] [place] [address] Samantha, Nurse [address] [place] [address] 03/14/2024 3:00 PM EDT Nurse Only Ancillary [address] [place] [address] Samantha, Nurse [address] [place] [address] 04/24/2024 3:30 PM EDT Office Visit Cardiology [address] [place] [address] Herberth Denny PA-C [address] [place] [address] 08/07/2024 3:30 PM EST Telemedicine Orthopaedics [address] [place] [phone] Otf Grier MD [address] [place] [address] Health Maintenance Due Date Last Done Comments DXA Scan 01/04/2023 01/05/2020, 01/04/2015 COVID-19 Vaccine ( season) 2023 Colonoscopy 04/19/2023 04/19/2018, 03/26, 09/29/2014, Additional history exists CKD HGB USE SMARTSET 91431 01/20/202401/19, 01/19/2023, 07/03/2022, Additional history exists Adult [...] Additional history exists CKD PHOS USE SMARTSET 24206 10/08/202409/23, 07/03/2022, 05/11/2021, Additional history exists DTap/Tdap [...] this encounter Medical Devices Implanted Type Area Rental Counter Clerk Device Identifier Shelf Expiration Date Model / Serial / Lot Lens Intraoc 19.5 - [id number] - [id number] Implanted:Qty: 1 on 03/17/2021 by Migel Dejesus MD at OR [facility] Left: Eye [employer]OMB 10/22/2025 [id number] / [id number] / [id number] Lens Intraoc 20.0 - [id number] - [id number] Implanted:Qty: 1 on 03/31/2021 by Migel Dejesus MD at OR [facility] Right: Eye BAUSCH [employer] LOMB 12/22/2025 [id number] / [id number] / [id number] documented as of this encounter Advance Directives Healthcare Agents on File Name Relationship Healthcare Agent Relationshi p Communication Mimi Jarrell Adult Child Health Care Repr esentative (appointed verbally by patient or by statute hierarchy) Yanci Adkins Adult Child Health Care Repr esentative (appointed verbally by patient or by statute hierarchy) Care Teams Market Master Relationship Specialty Start Date End Date Rosemary Valentine MD [address] [place] [address] [place] [address] PCP - General Family Medicine 09/05/23 documented as of this encounter
--- OUTSIDE RECORDS SUMMARY | 2024-04-16 06:40 | External Medical Summary | Summary of Care ---
Author Name Unknown Organization [facility] Address [address] [place] [address] Phone [phone] Care Team Providers Care Hotel Assistant General Manager Name Role Phone Randy Valentine MD Primary Care Provide r Reason for Visit * Reason Onset Date Comments medication change 02/19/2024 Encounter Details Date Type Department Care Team (Late st Contact Info) Description 02/19/2024 Telephone Family Medicine [address] [phone] Randy Valentine MD [address] [place], [place] [address] [address] medication change Allergies Active Allergy Reactions [...] 1,000 mcgIndications:Vitamin B12 deficiency 1000 mcg IM [id number] 01/10/2024 12/11/2024 Active documented as of this [...] Taxonomy. Impaired fasting glucose 06/23/200607/2011 LOC PRIM [id number] 04/16/200609/24 LOC PRIM OSTEOARTH-ANKLE 04/16/2006 Sprain of [...] Influenza, Split, I IV3, With Preserve, Inj 04/23/2014,04/21/2013,03/25/2012,100 06/2010,03/25/2010,03/25/2009,04/06/20 08,04/13/2003,04/14/2002,05/20/2001 04/13/2004 Seasonal Influenza, Trivalen t, [...] 07/30/2023 Does the household have a re lar source of income? (Household - for ages [...] encounter Miscellaneous Notes * Addendum Note - Randy Valentine MD - 02/20/2024 1:49 PM EDTAddended by: RANDY VALENTINE on: 02/20/2024 01:49 PM Modules accepted: Orders * Telephone Encounter - Randy Valentine MD - 02/20/2024 1:48 PM EDT I am not sure what may be cheaper. We could consider sending Trelegy to [facility] mail order. The mail order is much cheaper than a retail pharmacy. In the meantime, I sent Advair to [facility] to see if that is any cheaper/works [...] on. Please advise, Thank you, Caleb Gan, Maintenance Painter Retail Furniture Sales 1 [facility] ([facility]) (Formerly Telepharmacy) 02/19/2024,2:36 PM documented in this encounter Plan of Treatment Upcoming Encounters Date Type Department Care Team (Late st Contact Info) Description 02/26/2024 4:20 PM EDT Nurse Only Ancillary [address] [place] [address] [place] [address] [place] [address] 03/14/2024 3:00 PM EDT Nurse Only Ancillary [address] [place] [address] Samantha, Nurse [address] [place] [address] 04/24/2024 3:30 PM EDT Office Visit Cardiology [address] [place] [address] Herberth Denny PA-C [address] [place] [address] 08/07/2024 3:30 PM EST Telemedicine Orthopaedics [address] [place] [phone] Otf Grier MD [address] [place] [address] Health Maintenance Due Date Last Done Comments DXA Scan 01/04/2023 01/05/2020, 01/04/2015 COVID-19 Vaccine ( season) 2023 Colonoscopy 04/19/2023 04/19/2018, 03/26, 09/29/2014, Additional history exists CKD HGB USE SMARTSET 57414 01/20/202401/19, 01/19/2023, 07/03/2022, Additional history exists Adult [...] Additional history exists CKD PHOS USE SMARTSET 37491 10/08/202409/23, 07/03/2022, 05/11/2021, Additional history exists DTap/Tdap [...] this encounter Medical Devices Implanted Type Area Cosmetic Consultant Device Identifier Shelf Expiration Date Model / Serial / Lot Lens Intraoc 19.5 - [id number] - [id number] Implanted:Qty: 1 on 03/17/2021 by Migel Dejesus MD at [facility] Left: Eye [employer]OM[employer] 10/22/2025 [id number] / [id number] / [id number] Lens Intraoc 20.0 - [id number] - [id number] Implanted:Qty: 1 on 03/31/2021 by Migel Dejesus MD at OR [facility] Right: Eye [employer]CH [employer]OM[employer] 12/22/2025 [id number] / [id number] / [id number] documented as of this encounter Advance Directives Healthcare Agents on File Name Relationship Healthcare Agent Relationshi p Communication Mimi Vieyra Adult Child Health Care Repr esentative (appointed verbally by patient or by statute hierarchy) Yanci Adkins Adult Child Health Care Repr esentative (appointed verbally by patient or by statute hierarchy) Care Teams Hotel Assistant General Manager Relationship Specialty Start Date End Date Randy Valentine MD [address] [place] [address] [place] [phone] PCP - General Family Medicine 09/05/23 documented as of this encounter
--- OUTSIDE RECORDS SUMMARY | 2024-04-16 06:40 | External Medical Summary | Summary of Care ---
Author Name Unknown Organization [facility] Address [address] [place] [address] Phone [phone] Care Team Providers Care Accounts Receivable Processor Name Role Phone Randy Valentine MD Primary Care Provide r Reason for Visit * Reason Onset Date Comments medication change 02/19/2024 Encounter Details Date Type Department Care Team (Late st Contact Info) Description 02/19/2024 Telephone Family Medicine [address] [phone] Randy Valentine MD [address] [place], [place] [address] [address] medication change Allergies Active Allergy Reactions [...] 1,000 mcgIndications:Vitamin B12 deficiency 1000 mcg IM [id number] 01/10/2024 12/11/2024 Active documented as of this [...] Taxonomy. Impaired fasting glucose 06/23/200607/2011 LOC PRIM [id number] 04/16/200609/24 LOC PRIM OSTEOARTH-ANKLE 04/16/2006 Sprain of [...] cheaper. We could consider sending Trelegy to [facility] mail order. The mail order is much cheaper than a retail pharmacy. In the meantime, I sent Advair to [facility] to see if that is [...] on. Please advise, Thank you, Caleb Gan, Pillowcase Turner Blanket Washer 1 [facility] ([facility]) (Formerly Telepharmacy) 02/19/2024,2:36 PM documented in this encounter Plan of Treatment Upcoming Encounters Date Type Department Care Team (Late st Contact Info) Description 02/26/2024 4:20 PM EDT Nurse Only Ancillary [address] [place] [address] [place] [address] [place] [address] 03/14/2024 3:00 PM EDT Nurse Only Ancillary [address] [place] [address] Samatnha, Nurse [address] [place] [address] 04/24/2024 3:30 PM EDT Office Visit Cardiology [address] [place] [address] Herberth Denny PA-C [address] [place] [address] 08/07/2024 3:30 PM EST Telemedicine Orthopaedics [address] [place] [phone] Otf Grier MD [address] [place] [address] Health Maintenance Due Date Last Done Comments DXA Scan 01/04/2023 01/05/2020, 01/04/2015 COVID-19 Vaccine ( season) 2023 Colonoscopy 04/19/2023 04/19/2018, 03/26, 09/29/2014, Additional history exists CKD HGB USE SMARTSET 26060 01/20/202401/19, 01/19/2023, 07/03/2022, Additional history exists Adult [...] Additional history exists CKD PHOS USE SMARTSET 67530 10/08/202409/23, 07/03/2022, 05/11/2021, Additional history exists DTap/Tdap [...] this encounter Medical Devices Implanted Type Area Visual Merchandising Director Device Identifier Shelf Expiration Date Model / Serial / Lot Lens Intraoc 19.5 - [id number] - [id number] Implanted:Qty: 1 on 03/17/2021 by Migel Dejesus MD at [facility] Left: Eye [employer]CH [employer] LOMB 10/22/2025 [id number] / [id number] / [id number] Lens Intraoc 20.0 - [id number] - [id number] Implanted:Qty: 1 on 03/31/2021 by Migel Dejesus MD at OR [facility] Right: Eye BAUSCH & LOMB 12/22/2025 [id number] / [id number] / [id number] documented as of this encounter Advance Directives Healthcare Agents on File Name Relationship Healthcare Agent Relationshi p Communication Mimi Vieyra Adult Child Health Care Repr esentative (appointed verbally by patient or by statute hierarchy) Yanci Adkins Adult Child Health Care Repr esentative (appointed verbally by patient or by statute hierarchy) Care Teams Accounts Receivable Processor Relationship Specialty Start Date End Date Randy Valentine MD [address] [place] [address] [place] [phone] PCP - General Family Medicine 09/05/23 documented as of this encounter
--- OUTSIDE RECORDS SUMMARY | 2024-04-16 06:41 | External Medical Summary | Summary of Care ---
Author Name Unknown Organization [facility] Address [address] [place] [address] Phone [phone] Care Team Providers Care Apricot Packer Name Role Phone Rosemary Valentine MD Primary Care Provide r Reason for Visit * Reason Comments Follow Up Knee Pain R knee * Precert (Within 30 days (routine)) - Authorized Specialty Diagnoses / Procedures Referred By Contac t Referred To Contact Diagnoses Unilateral primary osteoarthritis, right knee Procedures SD GEL-SYN INJECTION 0.1 MG Otf Grier MD [address] [place] [address] Otf Grier MD [address] [place] [address] Referral ID Status Reason Start Date Expiration Date V isits Requested Visits Authorized [id number] Authorized Precert 01/17/2023 06/24/2099 [id number] Encounter Details Date Type Department Care Team (Latest Contact Info) Description 01/31/2024 11:45 AM EDT Office Visit Orthopaedics [address] [phone] Otf Grier MD [address] [place] [address] Primary osteoarthritis of right knee* Allergies Active Allergy Reactions Criticality Noted Date Comments Codeine Nausea/vomiting 08/15/2011 Propoxyphene N-Acetaminophen Nausea/vomiting Low 08/24/2008 Iodinated Contrast Media Hives 02/06/2023 Iodine Hives 01/08/2001 Latex 09/26/2012 Contact dermititis Nitrofurantoin Rash 09/07/2014 Metformin 04/12/2021 documented as of this encounter (statuses as of 01/31/2024) Medications Medication Sig Dispensed Refills Start Date [...] days . 1 mL 11 09/13/2021 Active Amulaire Thermal TechnologyTouch Verio w/Device KitIndications:Type 2 diabetes mellitus with [...] the morning. 90 Tablet 1 08/22/2023 Active Trulicity 0.75 MG/0.5ML Subcutaneous Solution Pen-injector (Dulaglutide)Indicat ions:Type 2 diabetes mellitus with stage 3a chronic kidney disease, without long-term current use of insulin ([facility]) Inject 0.75 mg under the skin [...] needed for anxiety 60 Tablet 01/31/2024 Active Hospital, Clinic, or Other Facility Administered Medication Ordered Dose Route Frequency Start Date End Date Status vitamin b-12 (Cyanocobalamin) inj 1,000 mcgIndications:Vitamin B12 deficiency 1000 mcg IM [id number] 01/10/2024 12/11/2024 Active sodium hyaluronate (Gelsyn-3) 16.8 MG/2ML inj 16.8 mgIndications:Primary osteoarthritis of right knee 16.8 mg IX ONCE 01/31/2024 01/31/2024 Ended documented as of this encounter (statuses as of 01/31/2024) Active Problems Problem Noted Date Diagnosed Date [...] as of this encounter (statuses as of 01/31/2024) Resolved Problems Problem Noted Date Diagnosed Date [...] Taxonomy. Impaired fasting glucose 06/23/200607/2011 LOC PRIM [id number] 04/16/200609/24 LOC PRIM OSTEOARTH-ANKLE 04/16/2006 Sprain of [...] as of this encounter (statuses as of 01/31/2024) Immunizations Name Administration Dates Next Due Pneumococcal [...] as of this encounter Progress Notes * Otf Grier MD - 01/31/2024 11:45 AM EDT Diagnosis: OA right knee. The patient is here for the THIRD of a series of Gelsyn injections. There is no sign of infection in the injected knee. A timeout was called immediately prior to the procedure, to confirm the correct patient, procedure,and site. The site was marked by the physician prior to the procedure. Site was identified: knee: Right Procedure: Under sterile fashion, a 2 ml vial of Gelsyn was injected intra- articularly into the knee. Patient tolerated this well. Assessment: OA RIGHT knee. Plan: Telephone follow-up in 6-8 weeks. Aware these can be done every 6 months if needed. Note: prior to injection limited aspiration into the syringe performed on the R knee showed straw color joint fluid confirming intra-articular location of needle for injection. Otf Grier MD Primary Care Sports Medicine Orthopaedics [address] [phone] documented in this encounter Nursing Notes * Dorie Argueta LPN - 01/31/2024 1:38 PM EDT F/U R KNEE THIRD of a series Gelsyn injection Pt c/o 2/10 pain today Pt accompanied by her daughter today Juliana GreeneTeresa AMADOR documented in this encounter Plan of Treatment Upcoming Encounters Date Type Department Care Team (Late st Contact Info) Description 02/05/2024 3:00 PM EDT Nurse Only Ancillary [address] [place] [address] Kateryna, Nurse [address] [place] [address] 02/11/2024 3:00 PM EDT Nurse Only Ancillary [address] [place] [address] Samantha, Nurse [address] [place] [address] 03/14/2024 3:00 PM EDT Nurse Only Ancillary [address] [place] [address] [place], Nurse [address] [place] [address] 04/24/2024 3:30 PM EDT Office Visit Cardiology [address] [place] [address] Herberth Denny PA-C [address] [place] [address] 08/07/2024 3:30 PM EST Telemedicine Orthopaedics [address] [place] [phone] Otf Grier MD [address] [place] [address] Health Maintenance Due Date Last Done Comments DXA Scan 01/04/2023 01/05/2020, 01/04/2015 COVID-19 Vaccine ( season) 2023 Colonoscopy 04/19/2023 04/19/2018, 03/26, 09/29/2014, Additional history exists CKD HGB USE SMARTSET 82597 01/20/202401/19, 01/19/2023, 07/03/2022, Additional history exists Adult [...] Additional history exists CKD PHOS USE SMARTSET 86503 10/08/202409/23, 07/03/2022, 05/11/2021, Additional history exists DTaP,Tdap,and [...] this encounter Medical Devices Implanted Type Area Hand Polisher Device Identifier Shelf Expiration Date Model / Serial / Lot Lens Intraoc 19.5 - [id number] - [id number] Implanted:Qty: 1 on 03/17/2021 by Migel Dejesus MD at OR [facility] Left: Eye BA[employer]CH [employer] LOMB 10/22/2025 [id number] / [id number] / [id number] Lens Intraoc 20.0 - [id number] - [id number] Implanted:Qty: 1 on 03/31/2021 by Migel Dejesus MD at OR [facility] Right: Eye BAUSCH [employer] LOMB 12/22/2025 [id number] / [id number] / [id number] documented as of this encounter Visit Diagnoses Diagnosis Primary osteoarthritis of right knee- Primary Primary localized osteoarthrosis, lower leg documented in this encounter Administered Medications Inactive Administered Medications - up to 3 most recent administrations Medication Order MAR Action Action Date Dose Rate Site sodium hyaluronate (Gelsyn-3) 16.8 MG/2ML inj 16.8 mg 16.8 mg, Intra-Articular, ONCE, On Ginger 01/31/24 at 1430, For 1 dose Given 01/31/2024 1:54 PM EDT 16.8 mg Knee Right documented in this encounter Advance Directives Healthcare Agents on File Name Relationship Healthcare Agent Relationshi p Communication Mimi Jarrell Adult Child Health Care Repr esentative (appointed verbally by patient or by statute hierarchy) Yanci Adkins Adult Child Health Care Repr esentative (appointed verbally by patient or by statute hierarchy) Care Teams Apricot Packer Relationship Specialty Start Date End Date Rosemary Valentine MD [address] [place] [address] [place] [address] PCP - General Family Medicine 09/05/23 documented as of this encounter
--- OUTSIDE RECORDS SUMMARY | 2024-04-16 06:41 | External Medical Summary | Summary of Care ---
Author Name Unknown Organization [facility] Address [address] [place] [address] Phone [phone] Care Team Providers Care Marine Engine Driver Name Role Phone Randy Valentine MD Primary Care Provide r Reason for Visit * Reason Comments eRx-Medication Refill Encounter Details Date Type Department Care Team (Late st Contact Info) Description 02/13/2024 Refill Family Medicine [address] [phone] Randy Valentine MD [address] [place] [address] Allergies Active Allergy Reactions Criticality Noted Date Comments Codeine Nausea/vomiting 08/15/2011 Propoxyphene N-Acetaminophen Nausea/vomiting Low 08/24/2008 Iodinated Contrast Media Hives 02/06/2023 Iodine Hives 01/08/2001 Latex 09/26/2012 Contact dermititis Nitrofurantoin Rash 09/07/2014 Metformin 04/12/2021 documented as of this encounter (statuses as of 02/14/2024) Medications Medication Sig Dispensed Refills Start Date [...] A DAY 180 Tablet 5 4 Active Fluticasone Furoate-Vilanterol 100-25 MCG/ACT Inhalation Aerosol Powder Breath Activated (BREO ellipta) Inhale 1 Puff by mouth in the morning. 90 Each 3 4 Active hydroCHLOROthiazide 12.5 MG Oral Tablet TAKE ONE TABLET BY MOUTH IN THE MORNING 90 Tablet 4 Active ALPRAZolam 0.5 MG Oral Tablet (xaNAX)Indications: Anxiety take 1 tablet in the morning and evening if needed for anxiety 60 Tablet 4 Active Irbesartan 150 MG Oral Tablet (Avapro) TAKE 1 TABLET BY MOUTH EVERY MORNING 90 Tablet 3 4 Active Irbesartan 150 MG Oral Tablet (Avapro) Take 1 Tablet by mouth in the morning. 90 Tablet 1 4 02/14/20 24 Discontinued Hospital, Clinic, or Other Facility Administered Medication Ordered Dose Route Frequency Start Date End Date Status vitamin b-12 (Cyanocobalamin) inj 1,000 mcgIndications:Vitamin B12 deficiency 1000 mcg IM [id number] 01/10/2024 12/11/2024 Active documented as of this encounter (statuses as of 02/14/2024) Active Problems Problem Noted Date Diagnosed Date [...] as of this encounter (statuses as of 02/14/2024) Resolved Problems Problem Noted Date Diagnosed Date [...] Taxonomy. Impaired fasting glucose 06/23/200607/2011 LOC PRIM [id number] 04/16/200609/24 LOC PRIM OSTEOARTH-ANKLE 04/16/2006 Sprain of [...] as of this encounter (statuses as of 02/14/2024) Immunizations Name Administration Dates Next Due Pneumococcal [...] No 07/30/2023 Does the household have a [facility] source of income? (Household - for ages [...] encounter Miscellaneous Notes * Telephone Encounter - Renee Cloud, [facility] - 02/14/2024 4:01 PM EDT Signed Prescriptions: Disp Refills Irbesartan 150 MG Oral Tablet (Avapro) 90 Tab*3 Sig: TAKE 1 TABLET BY MOUTH EVERY MORNINGAuthorizing Provider: RANDY VALENTINE User: RENEE CLOUD documented in this encounter Plan of Treatment Upcoming Encounters Date Type Department Care Team (Late st Contact Info) Description 02/22/2024 3:00 PM EDT Nurse Only Ancillary [address] [place] [address] Samantha, Nurse [address] [place] [address] 02/22/2024 3:30 PM EDT Nurse Only Ancillary [address] [place] [address] Kateryna, Nurse [address] [place] [address] 03/14/2024 3:00 PM EDT Nurse Only Ancillary [address] [place] [address] Samantha, Nurse [address] [place] [address] 04/24/2024 3:30 PM EDT Office Visit Cardiology [address] [place] [address] Herberth Denny PA-C [address] [place] [address] 08/07/2024 3:30 PM EST Telemedicine Orthopaedics [address] [place] [phone] Otf Grier MD [address] [place] [address] Health Maintenance Due Date Last Done Comments DXA Scan 01/04/2023 01/05/2020, 01/04/2015 COVID-19 Vaccine ( season) 2023 Colonoscopy 04/19/2023 04/19/2018, 03/26, 09/29/2014, Additional history exists CKD HGB USE SMARTSET 18178 01/20/202401/19, 01/19/2023, 07/03/2022, Additional history exists Adult [...] Additional history exists CKD PHOS USE SMARTSET 75266 10/08/202409/23, 07/03/2022, 05/11/2021, Additional history exists DTaP,Tdap,and [...] this encounter Medical Devices Implanted Type Area Prospecting Driller Helper Device Identifier Shelf Expiration Date Model / Serial / Lot Lens Intraoc 19.5 - [id number] - [id number] Implanted:Qty: 1 on 03/17/2021 by Migel Dejesus MD at OR [facility] Left: Eye [employer]USCH [employer] LOMB 10/22/2025 [id number] / [id number] / [id number] Lens Intraoc 20.0 - [id number] - [id number] Implanted:Qty: 1 on 03/31/2021 by Migel Dejesus MD at OR [facility] Right: Eye BAUSCH [employer] LOMB 12/22/2025 [id number] / [id number] / [id number] documented as of this encounter Advance Directives Healthcare Agents on File Name Relationship Healthcare Agent Relationshi p Communication Mimi Vieyra Adult Child Health Care Repr esentative (appointed verbally by patient or by statute hierarchy) Yanci Adkins Adult Child Health Care Repr esentative (appointed verbally by patient or by statute hierarchy) Care Teams Marine Engine Driver Relationship Specialty Start Date End Date Randy Valentine MD [address] [place] [address] [place] [phone] PCP - General Family Medicine 09/05/23 documented as of this encounter
--- OUTSIDE RECORDS SUMMARY | 2024-04-16 06:41 | External Medical Summary | Summary of Care ---
Author Name Unknown Organization [facility] Address [address] [place] [address] Phone [phone] Care Team Providers Care Ring Stamper Name Role Phone Rosemary Valentine MD Primary Care Provide r Reason for Visit * Reason Comments Follow Up Knee Pain R knee * Precert (Within 30 days (routine)) - Authorized Specialty Diagnoses / Procedures Referred By Contac t Referred To Contact Diagnoses Unilateral primary osteoarthritis, right knee Procedures AR GEL-SYN INJECTION 0.1 MG Otf Grier MD [address] [place] [address] Otf Grier MD [address] [place] [address] Referral ID Status Reason Start Date Expiration Date V isits Requested Visits Authorized [id number] Authorized Precert 01/17/2023 06/24/2099 [id number] Encounter Details Date Type Department Care Team (Latest Contact Info) Description 01/31/2024 11:45 AM EDT Office Visit Orthopaedics [address] [phone] Otf Grier MD [address] [place] [address] Primary osteoarthritis of right knee* Allergies Active [...] days . 1 mL 11 09/13/2021 Active GogobeansTouch Verio w/Device KitIndications:Type 2 diabetes mellitus with [...] current use of insulin ([facility]) Inject 0.75 mg under the [...] 1,000 mcgIndications:Vitamin B12 deficiency 1000 mcg IM [id number] 01/10/2024 12/11/2024 Active sodium hyaluronate (Gelsyn-3) 16.8 [...] Taxonomy. Impaired fasting glucose 06/23/200607/2011 LOC PRIM [id number] 04/16/200609/24 LOC PRIM OSTEOARTH-ANKLE 04/16/2006 Sprain of [...] Grier MD Primary Care Sports Medicine Orthopaedics [address] [phone] documented in this encounter Nursing Notes * [...] 02/05/2024 3:00 PM EDT Nurse Only Ancillary [address] [place] [address] Kateryna, Nurse [address] [place] [address] 02/11/2024 3:00 PM EDT Nurse Only Ancillary [address] [place] [address] Samantha, Nurse [address] [place] [address] 03/14/2024 3:00 PM EDT Nurse Only Ancillary [address] [place] [address] [place], Nurse [address] [place] [address] 04/24/2024 3:30 PM EDT Office Visit Cardiology [address] [place] [address] Herberth Denny PA-C [address] [place] [address] 08/07/2024 3:30 PM EST Telemedicine Orthopaedics [address] [place] [phone] Otf Grier MD [address] [place] [address] Health Maintenance Due Date Last Done Comments DXA Scan 01/04/2023 01/05/2020, 01/04/2015 COVID-19 Vaccine ( season) 2023 Colonoscopy 04/19/2023 04/19/2018, 03/26, 09/29/2014, Additional history exists CKD HGB USE SMARTSET 34231 01/20/202401/19, 01/19/2023, 07/03/2022, Additional history exists Adult [...] Additional history exists CKD PHOS USE SMARTSET 84069 10/08/202409/23, 07/03/2022, 05/11/2021, Additional history exists DTaP,Tdap,and [...] this encounter Medical Devices Implanted Type Area Scoop Machine Operator Device Identifier Shelf Expiration Date Model / Serial / Lot Lens Intraoc 19.5 - [id number] - [id number] Implanted:Qty: 1 on 03/17/2021 by Migel Dejesus MD at OR [facility] Left: Eye BAUSCH [employer] LOMB 10/22/2025 [id number] / [id number] / [id number] Lens Intraoc 20.0 - [id number] - [id number] Implanted:Qty: 1 on 03/31/2021 by Migel Dejesus MD at OR [facility] Right: Eye BAUSCH [employer] LOMB 12/22/2025 [id number] / [id number] / [id number] documented as of this encounter Visit Diagnoses [...] patient or by statute hierarchy) Care Teams Ring Stamper Relationship Specialty Start Date End Date Rosemary Valentine MD [address] [place] [address] [place] [address] PCP - General Family Medicine 09/05/23 documented as of this encounter
--- OUTSIDE RECORDS SUMMARY | 2024-04-16 06:41 | External Medical Summary | Summary of Care ---
Author Name Unknown Organization [facility] Address [address] [place] [address] Phone [phone] Care Team Providers Care Cellular Biologist Name Role Phone Rosemary Valentine MD Primary Care Provide r Reason for Visit * Reason Onset Date Comments medication change 02/19/2024 Encounter Details Date Type Department Care Team (Late st Contact Info) Description 02/19/2024 Telephone Family Medicine [address] [phone] Rosemary Valentine MD [address] [place], [place] [address] [address] medication change Allergies Active Allergy Reactions Criticality Noted Date Comments Codeine Nausea/vomiting 08/15/2011 Propoxyphene N-Acetaminophen Nausea/vomiting Low 08/24/2008 Iodinated Contrast Media Hives 02/06/2023 Iodine Hives 01/08/2001 Latex 09/26/2012 Contact dermititis Nitrofurantoin Rash 09/07/2014 Metformin 04/12/2021 documented as of this encounter (statuses as of 02/19/2024) Medications Medication Sig Dispensed Refills Start Date [...] disease, without long-term current use of insulin ([facility]) Use once daily to check [...] 1,000 mcgIndications:Vitamin B12 deficiency 1000 mcg IM [id number] 01/10/2024 12/11/2024 Active documented as of this encounter (statuses as of 02/19/2024) Active Problems Problem Noted Date Diagnosed Date [...] as of this encounter (statuses as of 02/19/2024) Resolved Problems Problem Noted Date Diagnosed Date [...] Taxonomy. Impaired fasting glucose 06/23/200607/2011 LOC PRIM [id number] 04/16/200609/24 LOC PRIM OSTEOARTH-ANKLE 04/16/2006 Sprain of [...] as of this encounter (statuses as of 02/19/2024) Immunizations Name Administration Dates Next Due Pneumococcal [...] encounter Miscellaneous Notes * Telephone Encounter - Bry Gan, billboard poster helper - 02/19/2024 2:34 PM EDT Patient is calling to request something different other than Fluticasone Furoate-Vilanterol 100-25 MCG/ACT Inhalation Aerosol Powder Breath Activated (BREO ellipta), she states that the copay is $140 She states she is having trouble breathing even while using the breo, she is hoping to go back to using what she was previously on. Please advise, Thank you, Caleb Gan, Money Laundering Investigator Health Center Manager [facility] ([facility]) (Formerly Telepharmacy) 02/19/2024,2:36 PM documented in this encounter Plan of Treatment Upcoming Encounters Date Type Department Care Team (Late st Contact Info) Description 02/26/2024 4:20 PM EDT Nurse Only Ancillary [address] [place] [address] Samantha, Nurse [address] [place] [address] 03/14/2024 3:00 PM EDT Nurse Only Ancillary [address] [place] [address] Samantha, Nurse [address] [place] [address] 04/24/2024 3:30 PM EDT Office Visit Cardiology [address] [place] [address] Herberth Denny PA-C [address] [place] [address] 08/07/2024 3:30 PM EST Telemedicine Orthopaedics [address] [place] [phone] Otf Grier MD [address] [place] [address] Health Maintenance Due Date Last Done Comments DXA Scan 01/04/2023 01/05/2020, 01/04/2015 COVID-19 Vaccine ( season) 2023 Colonoscopy 04/19/2023 04/19/2018, 03/26, 09/29/2014, Additional history exists CKD HGB USE SMARTSET 17481 01/20/202401/19, 01/19/2023, 07/03/2022, Additional history exists Adult Wellness Visit 01/30/2024 01/29/2023, 08/01/20 22 Depression Monitoring 01/30/2024 01/29/2023 Diabetic Foot [...] Additional history exists CKD PHOS USE SMARTSET 60051 10/08/202409/23, 07/03/2022, 05/11/2021, Additional history exists DTap/Tdap [...] this encounter Medical Devices Implanted Type Area Beam Dyer Recessed Vat Device Identifier Shelf Expiration Date Model / Serial / Lot Lens Intraoc 19.5 - [id number] - [id number] Implanted:Qty: 1 on 03/17/2021 by Migel Dejesus MD at OR [facility] Left: Eye [employer]USCH [employer] LOMB 10/22/2025 [id number] / [id number] / [id number] Lens Intraoc 20.0 - [id number] - [id number] Implanted:Qty: 1 on 03/31/2021 by Migel Dejesus MD at OR [facility] Right: Eye BAUSCH [employer] LOMB 12/22/2025 [id number] / [id number] / [id number] documented as of this encounter Advance Directives Healthcare Agents on File Name Relationship Healthcare Agent Relationshi p Communication Mimi Vieyra Adult Child Health Care Repr esentative (appointed verbally by patient or by statute hierarchy) Yanci Adkins Adult Child Health Care Repr esentative (appointed verbally by patient or by statute hierarchy) Care Teams Cellular Biologist Relationship Specialty Start Date End Date Rosemary Valentine MD [address] [place] [address] [place] [address] PCP - General Family Medicine 09/05/23 documented as of this encounter
--- OUTSIDE RECORDS SUMMARY | 2024-04-16 06:41 | External Medical Summary | Summary of Care ---
Author Name Unknown Organization [facility] Address [address] [place] [address] Phone [phone] Care Team Providers Care Flight Follower Name Role Phone Rosemary Valentine MD Primary Care Provide r Reason for Visit * Reason Onset Date Comments medication change 02/19/2024 Encounter Details Date Type Department Care Team (Late st Contact Info) Description 02/19/2024 Telephone Family Medicine [address] [phone] Rosemary Valentine MD [address] [place], [place] [address] [address] medication change Allergies Active Allergy Reactions [...] [facility]) Use once daily to check glucose [...] 1,000 mcgIndications:Vitamin B12 deficiency 1000 mcg IM [id number] 01/10/2024 12/11/2024 Active documented as of this [...] Taxonomy. Impaired fasting glucose 06/23/200607/2011 LOC PRIM [id number] 04/16/200609/24 LOC PRIM OSTEOARTH-ANKLE 04/16/2006 Sprain of [...] No 07/30/2023 Does the household have a [facility] source of income? (Household - for [...] co-pay * Telephone Encounter - Bry Gan, anode crew supervisor - 02/19/2024 2:34 PM EDT Patient [...] on. Please advise, Thank you, Caleb Gan, Forensics Analyst Nailing Machine Feeder 1 [facility] ([facility]) (Formerly Telepharmacy) 02/19/2024,2:36 PM documented in this encounter Plan of Treatment Upcoming Encounters Date Type Department Care Team (Late st Contact Info) Description 02/26/2024 4:20 PM EDT Nurse Only Ancillary [address] [place] [address] Samantha, Nurse [address] [place] [address] 03/14/2024 3:00 PM EDT Nurse Only Ancillary [address] [place] [address] Samantha, Nurse [address] [place] [address] 04/24/2024 3:30 PM EDT Office Visit Cardiology [address] [place] [address] Herberth Denny PA-C [address] [place] [address] 08/07/2024 3:30 PM EST Telemedicine Orthopaedics [address] [place] [phone] Otf Grier MD [address] [place] [address] Health Maintenance Due Date Last Done Comments DXA Scan 01/04/2023 01/05/2020, 01/04/2015 COVID-19 Vaccine ( season) 2023 Colonoscopy 04/19/2023 04/19/2018, 03/26, 09/29/2014, Additional history exists CKD HGB USE SMARTSET 12862 01/20/202401/19, 01/19/2023, 07/03/2022, Additional history exists Adult [...] Additional history exists CKD PHOS USE SMARTSET 19781 10/08/202409/23, 07/03/2022, 05/11/2021, Additional history exists DTap/Tdap [...] this encounter Medical Devices Implanted Type Area Geophysical Data Technician Device Identifier Shelf Expiration Date Model / Serial / Lot Lens Intraoc 19.5 - [id number] - [id number] Implanted:Qty: 1 on 03/17/2021 by Migel Dejesus MD at OR [facility] Left: Eye BAUSCH [employer] LOMB 10/22/2025 [id number] / [id number] / [id number] Lens Intraoc 20.0 - [id number] - [id number] Implanted:Qty: 1 on 03/31/2021 by Migel Dejesus MD at OR [facility] Right: Eye BAUSCH & LOMB 12/22/2025 [id number] / [id number] / [id number] documented as of this encounter Advance Directives Healthcare Agents on File Name Relationship Healthcare Agent Relationshi p Communication Mimi Jarrell Adult Child Health Care Repr esentative (appointed verbally by patient or by statute hierarchy) Yanci Adkins Adult Child Health Care Repr esentative (appointed verbally by patient or by statute hierarchy) Care Teams Flight Follower Relationship Specialty Start Date End Date Rosemary Valentine MD [address] [place] [address] [place] [address] PCP - General Family Medicine 09/05/23 documented as of this encounter
--- OUTSIDE RECORDS SUMMARY | 2024-04-16 06:41 | External Medical Summary | Summary of Care ---
Author Name Unknown Organization [facility] Address [address] [place] [address] Phone [phone] Care Team Providers Care Fence Machine Operator Name Role Phone Rosemary Valentine MD Primary Care Provide r Encounter Details Date Type Department Care Team (Late st Contact Info) Description 02/18/2024 Population Health External Data Unspecified Department Allergies Active Allergy Reactions Criticality Noted Date Comments Codeine Nausea/vomiting 08/15/2011 Propoxyphene N-Acetaminophen Nausea/vomiting Low 08/24/2008 Iodinated Contrast Media Hives 02/06/2023 Iodine Hives 01/08/2001 Latex 09/26/2012 Contact dermititis Nitrofurantoin Rash 09/07/2014 Metformin 04/12/2021 documented as of this encounter (statuses as of 02/18/2024) Medications Medication Sig Dispensed Refills Start Date [...] disease, without long-term current use of insulin ([facility]) Use once daily to check [...] disease, without long-term current use of insulin ([facility]) Use once daily to check glucose E11.9 100 Each 5 12/17/2023 Active Eliquis 5 MG Oral Tablet (Apixaban) TAKE ONE TABLET BY MOUTH TWICE DAILY 60 Tablet 01/01/2024 Active Metoprolol Succinate ER 25 MG Oral Tablet Extended Release 24 Hour (toPROL XL)Indications:Parox ysmal atrial fibrillation (HCC) TAKE THREE TABLETS BY MOUTH TWO TIMES A DAY 180 Tablet 01/01/2024 Active Fluticasone Furoate-Vilanterol 100-25 MCG/ACT Inhalation [...] 1,000 mcgIndications:Vitamin B12 deficiency 1000 mcg IM [id number] 01/10/2024 12/11/2024 Active documented as of this encounter (statuses as of 02/18/2024) Active Problems Problem Noted Date Diagnosed Date [...] as of this encounter (statuses as of 02/18/2024) Resolved Problems Problem Noted Date Diagnosed Date [...] Taxonomy. Impaired fasting glucose 06/23/200607/2011 LOC PRIM [id number] 04/16/200609/24 LOC PRIM OSTEOARTH-ANKLE 04/16/2006 Sprain of [...] as of this encounter (statuses as of 02/18/2024) Immunizations Name Administration Dates Next Due Pneumococcal [...] No 07/30/2023 Does the household have a [facility] source [facility]? (Household - for ages [...] 02/22/2024 3:00 PM EDT Nurse Only Ancillary [address] [place] [address] Nurse Samantha [address] [place] [address] 02/22/2024 3:30 PM EDT Nurse Only Ancillary [address] [place] [address] Nurse Kateryna [address] [place] [address] 03/14/2024 3:00 PM EDT Nurse Only Ancillary [address] [place] [address] Nurse Samantha [address] [place] [address] 04/24/2024 3:30 PM EDT Office Visit Cardiology [address] [place] [address] Herberth Denny PA-C [address] [place] [address] 08/07/2024 3:30 PM EST Telemedicine Orthopaedics [address] [place] [phone] Otf Grier MD [address] [place] [address] Health Maintenance Due Date Last Done Comments DXA Scan 01/04/2023 01/05/2020, 01/04/2015 COVID-19 Vaccine ( season) 2023 Colonoscopy 04/19/2023 04/19/2018, 03/26, 09/29/2014, Additional history exists CKD HGB USE SMARTSET 63502 01/20/202401/19, 01/19/2023, 07/03/2022, Additional history exists Adult [...] Additional history exists CKD PHOS USE SMARTSET 65641 10/08/202409/23, 07/03/2022, 05/11/2021, Additional history exists DTaP,Tdap,and [...] this encounter Medical Devices Implanted Type Area Pipeline Gang Supervisor Device Identifier Shelf Expiration Date Model / Serial / Lot Lens Intraoc 19.5 - [id number] - [id number] Implanted:Qty: 1 on 03/17/2021 by Migel Dejesus MD at OR [facility] Left: Eye BAUSCH [employer] LOMB 10/22/2025 [id number] / [id number] / [id number] Lens Intraoc 20.0 - [id number] - [id number] Implanted:Qty: 1 on 03/31/2021 by Migel Dejesus MD at OR [facility] Right: Eye BAUSCH & LOMB 12/22/2025 [id number] / [id number] / [id number] documented as of this encounter Advance Directives Healthcare Agents on File Name Relationship Healthcare Agent Relationshi p Communication Mimi Do Adult Child Health Care Repr esentative (appointed verbally by patient or by statute hierarchy) Yanci Adkins Adult Child Health Care Repr esentative (appointed verbally by patient or by statute hierarchy) Care Teams Fence Machine Operator Relationship Specialty Start Date End Date Rosemary [place] MD [address] [place] [address] [place] [address] PCP - General Family Medicine 09/05/23 documented as of this encounter
--- OUTSIDE RECORDS SUMMARY | 2024-04-16 06:41 | External Medical Summary | Summary of Care ---
Author Name Unknown Organization [facility] Address [address] [place] [address] Phone [phone] Care Team Providers Care Supervisor Display Fabrication Name Role Phone Rosemary Valentnie MD Primary Care Provide r Reason for Visit * Reason Onset Date Comments Medication Refill 01/30/2024 Encounter Details Date Type Department Care Team (Late st Contact Info) Description 01/30/2024 Refill Family Medicine [address] [phone] Rosemary Valentine MD [address] [place], [place] [address] [address] Anxiety Allergies Active Allergy Reactions Criticality [...] of insulin ([facility]) Inject 0.75 mg under the [...] 350 g 5 12/17/2023 Active OneTouch UltraSoft LancetsIndications: Type 2 [...] 01/21/2024 Active ALPRAZolam 0.5 MG Oral Tablet (xaNAX)Indications: Anxiety take 1 tablet in the morning and evening if needed for anxiety 60 Tablet 01/31/2024 Active ALPRAZolam 0.5 MG Oral Tablet (xaNAX)Indications: Anxiety take 1 tablet in the morning and evening if needed for anxiety 60 Tablet 01/01/2024 4 Discontinu ed(Refill) Hospital, Clinic, or Other Facility Administered Medication Ordered Dose Route Frequency Start Date End Date Status vitamin b-12 (Cyanocobalamin) inj 1,000 mcgIndications:Vitamin B12 deficiency 1000 mcg IM [id number] 01/10/2024 12/11/2024 Active documented as of this [...] Taxonomy. Impaired fasting glucose 06/23/200607/2011 LOC PRIM [id number] 04/16/200609/24 LOC PRIM OSTEOARTH-ANKLE 04/16/2006 Sprain of [...] Telephone Encounter - Rosemary Valentine MD - 01/31/2024 1:15 PM EDT Signed Prescriptions: Disp Refills ALPRAZolam 0.5 MG Oral Tablet (xaNAX) 60 Tab*0 Sig: take 1 tablet in the morning and evening if needed for anxiety Authorizing Provider: ROSEMARY VALENTINE * Telephone Encounter - Basilia Pineda [facility] - 01/31/2024 12:53 PM EDTPending Prescriptions: Disp Refills ALPRAZolam 0.5 MG Oral Tablet (xaNAX) 60 Tab*0 Sig: take 1 tablet in the morning and evening if needed for anxiety * Telephone Encounter - Basilia Pineda [facility] - 01/31/2024 12:52 PM EDT I have reviewed the patients controlled substance dispensing history in the Prescription Drug Monitoring Program in compliance with the [facility] regulations before prescribing a controlled substance. PDMP checked on 01/31/2024. Pending Prescriptions: Disp Refills ALPRAZolam 0.5 MG Oral Tablet (xaNAX) 60 Tab*0 Sig: take 1 tablet in the morning and evening if needed for anxiety Last Visit: 12/17/2023 (in office), Visit date not found (telemedicine) Next Visit: Visit date not found Date medication was last filled: 01/01/24 Date medication is due for refill: 01/30/24 Pharmacy: [facility] [id number] Is this request for a controlled substance? Yes and Urine Drug Screen Not completed Toxicology results: No results found. However, due to the size of the patient record, not all encounters were searched.Please check Results Review for a complete set of results. Please approve if appropriate. Thanks, Basilia Pineda, PharmD Clinical Pharmacist [facility] [phone] 01/31/2024 12:52 PM * Telephone Encounter - Morgan Renae, frame aligner - 01/30/2024 5:04 PM EDT Did you pend patient's preferred pharmacy and medication before forwarding?yes Pharmacy: [id number] [address] [facility] Pending Prescriptions: Disp Refills ALPRAZolam 0.5 MG Oral Tablet (xaNAX) 60 Tab*0 Sig: take 1 tablet in the morning and evening if needed for anxiety Last Visit: 12/17/2023 (in office), Visit date not found (telemedicine) Next Visit: Visit date not found If no future appointments scheduled, and last appointment is greater than a year ago, please schedule patient for a follow-up appointment Last date the medication was ordered: 01/01/2024 Is this request for a controlled substance?Yes, What was the last refill date 01/01/2024 w/ quantity 60 tabs and dosage 0.5 mg and Urine Drug [...] LDLDIRECT 219 (H) 05/13/2007 01:20 PM ALT 19 01/10/2024 03:11 PM ALT 19 02/05/2020 03:05 PM HGBA1C 6.4 (H) 10/09/2023 03:34 PM HGBA1C 6.8 (H) 02/05/2020 03:05 PM documented in this encounter Plan of Treatment Upcoming Encounters Date Type Department Care Team (Late st Contact Info) Description 02/05/2024 3:00 PM EDT Nurse Only Ancillary [address] [place] [address] Nurse Kateryna [address] [place] [address] 02/11/2024 3:00 PM EDT Nurse Only Ancillary [address] [place] [address] Samantha, Nurse [address] [place] [address] 03/14/2024 3:00 PM EDT Nurse Only Ancillary [address] [place] [address] Samantha, Nurse [address] [place] [address] 04/24/2024 3:30 PM EDT Office Visit Cardiology [address] [place] [address] Herberth Denny PA-C [address] [place] [address] Health Maintenance Due Date Last Done Comments DXA Scan 01/04/2023 01/05/2020, 01/04/2015 COVID-19 Vaccine ( season) 2023 Colonoscopy 04/19/2023 04/19/2018, 03/26, 09/29/2014, Additional history exists CKD HGB USE SMARTSET 04947 01/20/202401/19, 01/19/2023, 07/03/2022, Additional history exists Adult [...] Additional history exists CKD PHOS USE SMARTSET 47676 10/08/202409/23, 07/03/2022, 05/11/2021, Additional history exists DTaP,Tdap,and [...] this encounter Medical Devices Implanted Type Area Gun Barrel Finisher Device Identifier Shelf Expiration Date Model / Serial / Lot Lens Intraoc 19.5 - [id number] - [id number] Implanted:Qty: 1 on 03/17/2021 by Migel Dejesus MD at OR [facility] Left: Eye BAUSCH [employer] LOMB 10/22/2025 [id number] / [id number] / [id number] Lens Intraoc 20.0 - [id number] - [id number] Implanted:Qty: 1 on 03/31/2021 by Migel Dejesus MD at OR [facility] Right: Eye BAUSCH & LOMB 12/22/2025 [id number] / [id number] / [id number] documented as of this encounter Visit Diagnoses Diagnosis Anxiety Anxiety state, unspecified documented in this encounter Advance Directives Healthcare Agents on File Name Relationship Healthcare Agent Relationshi p Communication Mimi Annbrittany Adult Child Health Care Repr esentative (appointed verbally by patient or by statute hierarchy) Yanci Adkins Adult Child Health Care Repr esentative (appointed verbally by patient or by statute hierarchy) Care Teams Supervisor Display Fabrication Relationship Specialty Start Date End Date Rosemary Valentine MD [address] [place] [address] [place] [phone] PCP - General Family Medicine 09/05/23 documented as of this encounter
--- OUTSIDE RECORDS SUMMARY | 2024-04-16 06:41 | External Medical Summary | Summary of Care ---
Author Name Unknown Organization [facility] Address [address] [place] [address] Phone [phone] Care Team Providers Care Commercial Underwriter Name Role Phone Rosemary Valentine MD Primary Care Provide r Reason for Visit * Reason Onset Date Comments medication change 02/19/2024 Encounter Details Date Type Department Care Team (Late st Contact Info) Description 02/19/2024 Telephone Family Medicine [address] [phone] Rosemary Valentine MD [address] [place], [place] [address] [address] medication change Allergies Active Allergy Reactions [...] 1,000 mcgIndications:Vitamin B12 deficiency 1000 mcg IM [id number] 01/10/2024 12/11/2024 Active documented as of this [...] Taxonomy. Impaired fasting glucose 06/23/200607/2011 LOC PRIM [id number] 04/16/200609/24 LOC PRIM OSTEOARTH-ANKLE 04/16/2006 Sprain of [...] No 07/30/2023 [address] the household have a [facility] source of income? (Household - for [...] co-pay * Telephone Encounter - Bry Gan, roll forming supervisor - 02/19/2024 2:34 PM EDT Patient [...] on. Please advise, Thank you, Caleb Gan, Network Security Architect Network Support Administrator [facility] ([facility]) (Formerly Telepharmacy) 02/19/2024,2:36 PM documented in this encounter Plan of Treatment Upcoming Encounters Date Type Department Care Team (Late st Contact Info) Description 02/26/2024 4:20 PM EDT Nurse Only Ancillary [address] [place] [address] Samantha, Nurse [address] [place] [address] 03/14/2024 3:00 PM EDT Nurse Only Ancillary [address] [place] [address] Samantha, Nurse [address] [place] [address] 04/24/2024 3:30 PM EDT Office Visit Cardiology [address] [place] [address] Herberth Denny PA-C [address] [place] [address] 08/07/2024 3:30 PM EST Telemedicine Orthopaedics [address] [place] [phone] Otf Grier MD [address] [place] [address] Health Maintenance Due Date Last Done Comments DXA Scan 01/04/2023 01/05/2020, 01/04/2015 COVID-19 Vaccine ( season) 2023 Colonoscopy 04/19/2023 04/19/2018, 03/26, 09/29/2014, Additional history exists CKD HGB USE SMARTSET 15101 01/20/202401/19, 01/19/2023, 07/03/2022, Additional history exists Adult [...] Additional history exists CKD PHOS USE SMARTSET 15263 10/08/202409/23, 07/03/2022, 05/11/2021, Additional history exists DTap/Tdap [...] this encounter Medical Devices Implanted Type Area Parking Inspector Device Identifier Shelf Expiration Date Model / Serial / Lot Lens Intraoc 19.5 - [id number] - [id number] Implanted:Qty: 1 on 03/17/2021 by Migel Dejesus MD at OR [facility] Left: Eye BAUSCH & LOMB 10/22/2025 [id number] / [id number] / [id number] Lens Intraoc 20.0 - [id number] - [id number] Implanted:Qty: 1 on 03/31/2021 by Migel Dejesus MD at OR [facility] Right: Eye BAUSCH & LOMB 12/22/2025 [id number] / [id number] / [id number] documented as of this encounter Advance Directives Healthcare Agents on File Name Relationship Healthcare Agent Relationshi p Communication Mimi Jarrell Adult Child Health Care Repr esentative (appointed verbally by patient or by statute hierarchy) Yanci Adkins Adult Child Health Care Repr esentative (appointed verbally by patient or by statute hierarchy) Care Teams Commercial Underwriter Relationship Specialty Start Date End Date Rosemary Valentine MD [address] [place] [address] [place] [address] PCP - General Family Medicine 09/05/23 documented as of this encounter
--- OUTSIDE RECORDS SUMMARY | 2024-04-16 06:42 | External Medical Summary | Summary of Care ---
Author Name Unknown Organization [facility] Address [address] [place] [address] Phone [phone] Care Team Providers Care Airplane Cabin Attendant Name Role Phone Rosemary Valentine MD Primary Care Provide r Reason for Visit * Reason Comments Follow Up Knee Pain * Precert (Within 30 days (routine)) - Authorized Specialty Diagnoses / Procedures Referred By Contac t Referred To Contact Diagnoses Unilateral primary osteoarthritis, right knee Procedures AR GEL-SYN INJECTION 0.1 MG Otf Grier MD [address] [place] [address] Otf Grier MD [address] [place] [address] Referral ID Status Reason Start Date Expiration Date V isits Requested Visits Authorized [id number] Authorized Precert 01/17/2023 06/24/2099 [id number] Encounter Details Date Type Department Care Team (Latest Contact Info) Description 01/24/2024 2:30 PM EDT Office Visit Orthopaedics [address] [phone] Otf Grier MD [address] [place] [address] Primary osteoarthritis of right knee* Allergies Active Allergy Reactions Criticality Noted Date Comments Codeine Nausea/vomiting 08/15/2011 Propoxyphene N-Acetaminophen Nausea/vomiting Low 08/24/2008 Iodinated Contrast Media Hives 02/06/2023 Iodine Hives 01/08/2001 Latex 09/26/2012 Contact dermititis Nitrofurantoin Rash 09/07/2014 Metformin 04/12/2021 documented as of this encounter (statuses as of 01/24/2024) Medications Medication Sig Dispensed Refills Start Date [...] glucose E11.9 100 Each 5 12/17/2023 Active ALPRAZolam 0.5 MG Oral Tablet (xaNAX)Indications:A nxiety take 1 tablet in the morning and evening if needed for anxiety 60 Tablet 01/01/2024 Active Eliquis 5 MG Oral Tablet (Apixaban) [...] IN THE MORNING 90 Tablet 01/21/2024 Active Hospital, Clinic, or Other Facility Administered Medication Ordered Dose Route Frequency Start Date End Date Status vitamin b-12 (Cyanocobalamin) inj 1,000 mcgIndications:Vitamin B12 deficiency 1000 mcg IM [id number] 01/10/2024 12/11/2024 Active sodium hyaluronate (Gelsyn-3) 16.8 MG/2ML inj 16.8 mgIndications:Primary osteoarthritis of right knee 16.8 mg IX ONCE 01/24/2024 01/24/2024 Ended documented as of this encounter (statuses as of 01/24/2024) Active Problems Problem Noted Date Diagnosed Date [...] as of this encounter (statuses as of 01/24/2024) Resolved Problems Problem Noted Date Diagnosed Date [...] Taxonomy. Impaired fasting glucose 06/23/200607/2011 LOC PRIM [id number] 04/16/200609/24 LOC PRIM OSTEOARTH-ANKLE 04/16/2006 Sprain of [...] as of this encounter (statuses as of 01/24/2024) Immunizations Name Administration Dates Next Due Pneumococcal [...] Progress Notes * Otf Grier MD - 01/24/2024 2:30 PM EDT Diagnosis: OA right knee. The patient is here for the SECOND of a series of Gelsyn injections. There [...] this well. Assessment: OA RIGHT knee. Plan: The patient will follow up in 1 Week for reinjection. Note: prior to injection limited aspiration into the syringe performed on the R knee showed straw color joint fluid confirming intra-articular location of needle for injection. Otf Grier MD Primary Care Sports Medicine Orthopaedics [address] [phone] documented in this encounter Nursing Notes * Dorie Argueta LPN - 01/24/2024 2:17 PM EDT F/U R knee SECOND of a series Gelsyn today Pt denies pain today Juliana Marion LPN documented in this encounter Plan of Treatment Upcoming Encounters Date Type Department Care Team (Late st Contact Info) Description 01/31/2024 11:45 AM EDT Office Visit Orthopaedics [address] [phone] Otf Grier MD [address] [place] [address] 02/05/2024 3:00 PM EDT Nurse Only Ancillary [address] [place] [address] [place], Nurse [address] [place] [address] 02/11/2024 3:00 PM EDT Nurse Only Ancillary [address] [place] [address] Samantha, Nurse [address] [place] [address] 03/14/2024 3:00 PM EDT Nurse Only Ancillary [address] [place] [address] Samantha Nurse [address] [place] [address] 04/24/2024 3:30 PM EDT Office Visit Cardiology [address] [place] [address] Herberth Denny PA-C [address] [place] [address] Health Maintenance Due Date Last Done Comments DXA Scan 01/04/2023 01/05/2020, 01/04/2015 COVID-19 Vaccine ( season) 2023 Colonoscopy 04/19/2023 04/19/2018, 03/26, 09/29/2014, Additional history exists CKD HGB USE SMARTSET 54446 01/20/202401/19, 01/19/2023, 07/03/2022, Additional history exists Depression Monitoring 01/30/2024 01/29/2023 Diabetic Foot Exam [...] Additional history exists CKD PHOS USE SMARTSET 44011 10/08/202409/23, 07/03/2022, 05/11/2021, Additional history exists DTaP,Tdap,and [...] this encounter Medical Devices Implanted Type Area Dictionary Editor Device Identifier Shelf Expiration Date Model / Serial / Lot Lens Intraoc 19.5 - [id number] - [id number] Implanted:Qty: 1 on 03/17/2021 by Migel Dejesus MD at OR [facility] Left: Eye BAUSCH & LOMB 10/22/2025 [id number] / [id number] / [id number] Lens Intraoc 20.0 - [id number] - [id number] Implanted:Qty: 1 on 03/31/2021 by Migel Dejesus MD at OR [facility] Right: Eye BAUSCH & LOMB 12/22/2025 [id number] / [id number] / [id number] documented as of this encounter Visit Diagnoses Diagnosis Primary osteoarthritis of right knee- Primary Primary localized osteoarthrosis, lower leg documented in this encounter Administered Medications Inactive Administered Medications - up to 3 most recent administrations Medication Order MAR Action Action Date Dose Rate Site sodium hyaluronate (Gelsyn-3) 16.8 MG/2ML inj 16.8 mg 16.8 mg, Intra-Articular, ONCE, On Ginger 01/24/24 at 1530, For 1 dose Given 01/24/2024 3:22 PM EDT 16.8 mg Knee Right documented in this encounter Advance Directives Healthcare Agents on File Name Relationship Healthcare Agent Relationshi p Communication Mimi Vieyra Adult Child Health Care Repr esentative (appointed verbally by patient or by statute hierarchy) Yanci dAkins Adult Child Health Care Repr esentative (appointed verbally by patient or by statute hierarchy) Care Teams Airplane Cabin Attendant Relationship Specialty Start Date End Date Rosemary Valentine MD [address] [place] [address] [place] [phone] PCP - General Family Medicine 09/05/23 documented as of this encounter
--- OUTSIDE RECORDS SUMMARY | 2024-04-16 06:42 | External Medical Summary | Summary of Care ---
Author Name Unknown Organization [facility] Address [address] [place] [address] Phone [phone] Care Team Providers Care Chemistry Lecturer Name Role Phone Rosemary Valentine MD Primary Care Provide r Reason for Visit * Reason Comments Follow Up Knee Pain * Precert (Within 30 days (routine)) - Authorized Specialty Diagnoses / Procedures Referred By Contac t Referred To Contact Diagnoses Unilateral primary osteoarthritis, right knee Procedures LA GEL-SYN INJECTION 0.1 MG Otf Grier MD [address] [place] [address] Otf Grier MD [address] [place] [address] Referral ID Status Reason Start Date Expiration Date V isits Requested Visits Authorized [id number] Authorized Precert 01/17/2023 06/24/2099 [id number] Encounter Details Date Type Department Care Team (Latest Contact Info) Description 01/24/2024 2:30 PM EDT Office Visit Orthopaedics [address] [phone] Otf Grier MD [address] [place] [address] Primary osteoarthritis of right knee* Allergies Active [...] disease, without long-term current use of insulin ([facility]) Inject 0.75 mg under the skin once [...] disease, without long-term current use of insulin ([facility]) Use once daily to check glucose E11.9 [...] 1,000 mcgIndications:Vitamin B12 deficiency 1000 mcg IM [id number] 01/10/2024 12/11/2024 Active sodium hyaluronate (Gelsyn-3) 16.8 MG/2ML inj 16.8 mgIndications:Primary osteoarthritis of right knee 16.8 mg IX ONCE 01/24/2024 01/25/2024 Active documented as of this encounter (statuses [...] Taxonomy. Impaired fasting glucose 06/23/200607/2011 LOC PRIM [id number] 04/16/200609/24 LOC PRIM OSTEOARTH-ANKLE 04/16/2006 Sprain of [...] Grier MD Primary Care Sports Medicine Orthopaedics [address] [phone] documented in this encounter Nursing Notes * Dorie Argueta LPN - 01/24/2024 2:17 PM EDT F/U R knee SECOND of a series Gelsyn today Pt denies pain today Juliana Marion LPN documented in this encounter Plan of Treatment Upcoming Encounters Date Type Department Care Team (Late st Contact Info) Description 01/31/2024 11:45 AM EDT Office Visit Orthopaedics [address] [phone] Otf Grier MD [address] [facility] [place] [address] 02/05/2024 3:00 PM EDT Nurse Only Ancillary [address] [place] [address] Kateryna, Nurse [address] [place] [address] 02/11/2024 3:00 PM EDT Nurse Only Ancillary [address] [place] [address] Samantha, Nurse [address] [place] [address] 03/14/2024 3:00 PM EDT Nurse Only Ancillary [address] [place] [address] Loyal, Nurse [address] [place] [address] 04/24/2024 3:30 PM EDT Office Visit Cardiology [address] [place] [address] Herberth Denny PA-C [address] [place] [address] Health Maintenance Due Date Last Done Comments DXA Scan 01/04/2023 01/05/2020, 01/04/2015 COVID-19 Vaccine ( season) 2023 Colonoscopy 04/19/2023 04/19/2018, 03/26, 09/29/2014, Additional history exists CKD HGB USE SMARTSET 77203 01/20/202401/19, 01/19/2023, 07/03/2022, Additional history exists Depression [...] Additional history exists CKD PHOS USE SMARTSET 09040 10/08/202409/23, 07/03/2022, 05/11/2021, Additional history exists DTaP,Tdap,and [...] this encounter Medical Devices Implanted Type Area Ring Making Machine Operator Device Identifier Shelf Expiration Date Model / Serial / Lot Lens Intraoc 19.5 - [id number] - [id number] Implanted:Qty: 1 on 03/17/2021 by Migel Dejesus MD at OR [facility] Left: Eye BAUSCH [employer] LOMB 10/22/2025 [id number] / [id number] / [id number] Lens Intraoc 20.0 - [id number] - [id number] Implanted:Qty: 1 on 03/31/2021 by Migel Dejesus MD at [facility] Right: Eye BAUSCH & LOMB 12/22/2025 [id number] / [id number] / [id number] documented as of this encounter Visit Diagnoses Diagnosis Primary osteoarthritis of right knee- Primary Primary localized osteoarthrosis, lower leg documented in this encounter Advance Directives Healthcare Agents on File Name Relationship Healthcare Agent Relationshi p Communication Mimi Jarrell Adult Child Health Care Repr esentative (appointed verbally by patient or by statute hierarchy) Yanci Adkins Adult Child Health Care Repr esentative (appointed verbally by patient or by statute hierarchy) Care Teams Chemistry Lecturer Relationship Specialty Start Date End Date Rosemary Valentine MD [address] [place] [address] [place] [address] PCP - General Family Medicine 09/05/23 documented as of this encounter
--- OUTSIDE RECORDS SUMMARY | 2024-04-16 06:42 | External Medical Summary | Summary of Care ---
Author Name Unknown Organization [facility] Address [address] [place] [address] Phone [phone] Care Team Providers Care Customer Service Driver Name Role Phone Randy Valentine MD Primary Care Provide r Reason for Visit * Reason Comments eRx-Medication Refill Encounter Details Date Type Department Care Team (Late st Contact Info) Description 01/20/2024 Refill Family Medicine [address] [phone] Randy Valentine MD [address] [place] [id number] Allergies Active Allergy Reactions Criticality Noted Date Comments Codeine Nausea/vomiting 08/15/2011 Propoxyphene N-Acetaminophen Nausea/vomiting Low 08/24/2008 Iodinated Contrast Media Hives 02/06/2023 Iodine Hives 01/08/2001 Latex 09/26/2012 Contact dermititis Nitrofurantoin Rash 09/07/2014 Metformin 04/12/2021 documented as of this encounter (statuses as of 01/21/2024) Medications Medication Sig Dispensed Refills Start Date [...] the morning. 90 Tablet 1 4 Active Trulicity 0.75 MG/0.5ML Subcutaneous Solution Pen-injector (Dulaglutide)Indica tions:Type 2 diabetes mellitus with stage 3a chronic kidney disease, without long-term current use of insulin ([facility]) Inject 0.75 mg under the skin [...] glucose E11.9 100 Each 5 4 Active ALPRAZolam 0.5 MG Oral Tablet (xaNAX)Indications: Anxiety take 1 tablet in the morning and evening if needed for anxiety 60 Tablet 4 Active Eliquis 5 MG Oral Tablet [...] IN THE MORNING 90 Tablet 4 Active hydroCHLOROthiazide 12.5 MG Oral Tablet (Hydrodiuril) TAKE ONE TABLET BY MOUTH IN THE MORNING 90 Tablet 3 3 01/21/20 24 Discontinued Hospital, Clinic, or Other Facility Administered Medication Ordered Dose Route Frequency Start Date End Date Status vitamin b-12 (Cyanocobalamin) inj 1,000 mcgIndications:Vitamin B12 deficiency 1000 mcg IM [id number] 01/10/2024 12/11/2024 Active documented as of this encounter (statuses as of 01/21/2024) Active Problems Problem Noted Date Diagnosed Date [...] as of this encounter (statuses as of 01/21/2024) Resolved Problems Problem Noted Date Diagnosed Date [...] Taxonomy. Impaired fasting glucose 06/23/200607/2011 LOC PRIM [id number] 04/16/200609/24 LOC PRIM OSTEOARTH-ANKLE 04/16/2006 Sprain of [...] as of this encounter (statuses as of 01/21/2024) Immunizations Name Administration Dates Next Due Pneumococcal [...] No 07/30/2023 Does the household have a [facility]? (Household - for ages [...] Telephone Encounter - Randy Valentine MD - 01/21/2024 1:13 PM EDT Signed Prescriptions: Disp Refills hydroCHLOROthiazide 12.5 MG Oral Tablet 90 Tab*0 Sig: TAKE ONE TABLET BY MOUTH IN THE MORNING Authorizing Provider: RANDY VALENTINE * Telephone Encounter - Dory Michel [facility] - 01/21/2024 1:00 PM EDTPending Prescriptions: Disp Refills hydroCHLOROthiazide 12.5 MG Oral Tablet [P*90 Tab*0 Sig: TAKE ONE TABLET BY MOUTH IN THE MORNING * Telephone Encounter - Dory Michel [facility] - 01/21/2024 12:59 PM EDT Patient requesting refill on Hydrochlorothiazide last ordred 18 months ago Please approve if appropriate Thank You, Dory Michel [facility] Clinical Pharmacist [facility] [phone] [id number] 01/21/2024, 1:00 PM documented in this encounter Plan of Treatment Upcoming Encounters Date Type Department Care Team (Late st Contact Info) Description 01/24/2024 2:30 PM EDT Office Visit Orthopaedic[address] [phone] Otf Grier MD [address] [place] [address] 01/31/2024 11:45 AM EDT Office Visit [address] [phone] Otf Grier MD [address] [place] [address] 02/05/2024 3:00 PM EDT Nurse Only Ancillary [address] [place] [address] Kateryna, [address] [place] [address] 02/11/2024 3:00 PM EDT Nurse Only Ancillary [address] [place] [address] [place], Nurse [address] [place] [address] 03/14/2024 3:00 PM EDT Nurse Only Ancillary [address] [place] [address] [place], Nurse [address] [place] [address] 04/24/2024 3:30 PM EDT Office Visit Cardiology [address] [place] [address] Herberth Denny PA-Nithin [address] [place] [address] Health Maintenance Due Date Last Done Comments DXA Scan 01/04/2023 01/05/2020, 01/04/2015 COVID-19 Vaccine ( season) 2023 Colonoscopy 04/19/2023 04/19/2018, 03/26, 09/29/2014, Additional history exists CKD HGB USE SMARTSET 97826 01/20/202401/19, 01/19/2023, 07/03/2022, Additional history exists Depression [...] Additional history exists CKD PHOS USE SMARTSET 62033 10/08/202409/23, 07/03/2022, 05/11/2021, Additional history exists DTaP,Tdap,and [...] this encounter Medical Devices Implanted Type Area Teacher'S Assistant Device Identifier Shelf Expiration Date Model / Serial / Lot Lens Intraoc 19.5 - [id number] - [id number] Implanted:Qty: 1 on 03/17/2021 by Migel Dejesus MD at OR [facility] Left: Eye [employer] 10/22/2025 [id number] / [id number] / [id number] Lens Intraoc 20.0 - [id number] - [id number] Implanted:Qty: 1 on 03/31/2021 by Migel Dejesus MD at OR [facility] Right: Eye [employer] 12/22/2025 [id number] / [id number] / [id number] documented as of this encounter Advance Directives Healthcare Agents on File Name Relationship Healthcare Agent Relationshi p Communication Mimi Jarrell Adult Child Health Care Repr esentative (appointed verbally by patient or by statute hierarchy) Yanci Adkins Adult Child Health Care Repr esentative (appointed verbally by patient or by statute hierarchy) Care Teams Customer Service Driver Relationship Specialty Start Date End Date Randy Valentine MD [address] [place] [address] [place] [address] PCP - General Family Medicine 09/05/23 documented as of this encounter
--- OUTSIDE RECORDS SUMMARY | 2024-04-16 06:42 | External Medical Summary | Summary of Care ---
Author Name Unknown Organization [facility] Address [address] [place] [address] Phone [phone] Care Team Providers Care Wood Fence Installer Name Role Phone Rosemary Valentine MD Primary Care Provide r Reason for Visit * Reason Onset Date Comments Health Maintenance 01/23/2024 Encounter Details Date Type Department Care Team (Late st Contact Info) Description 01/23/2024 Telephone Family Medicine [address] [phone] Rosemary Valentine MD [address] [place], [place] [address] [address] Health Maintenance Allergies Active Allergy Reactions Criticality Noted Date Comments Codeine Nausea/vomiting 08/15/2011 Propoxyphene N-Acetaminophen Nausea/vomiting Low 08/24/2008 Iodinated Contrast Media Hives 02/06/2023 Iodine Hives 01/08/2001 Latex 09/26/2012 Contact dermititis Nitrofurantoin Rash 09/07/2014 Metformin 04/12/2021 documented as of this encounter (statuses as of 01/23/2024) Medications Medication Sig Dispensed Refills Start Date [...] disease, without long-term current use of insulin ([facility]) Inject 0.75 mg under the [...] disease, without long-term current use of insulin ([facility]) Use once daily to check [...] disease, without long-term current use of insulin ([facility]) Use once daily to check [...] 1,000 mcgIndications:Vitamin B12 deficiency 1000 mcg IM [id number] 01/10/2024 12/11/2024 Active documented as of this encounter (statuses as of 01/23/2024) Active Problems Problem Noted Date Diagnosed Date [...] as of this encounter (statuses as of 01/23/2024) Resolved Problems Problem Noted Date Diagnosed Date [...] Taxonomy. Impaired fasting glucose 06/23/200607/2011 LOC PRIM [id number] 04/16/200609/24 LOC PRIM OSTEOARTH-ANKLE 04/16/2006 Sprain of [...] as of this encounter (statuses as of 01/23/2024) Immunizations Name Administration Dates Next Due Pneumococcal [...] 01/04/2023 COVID-19 Vaccine ( season) Never done Colonoscopy 04/19/2023 CKD HGB USE SMARTSET 01279 01/20/2024 Diabetic Foot Exam 01/30/2024 Depression Monitoring 01/30/2024 Influenza Vaccine (FLU shot) (1) 02/24/2024 TSH 03/19/2024 HbA1c 04/09/2024 Recapture Ov Labs fall Dexa Care Gap Outreach Action Taken: Unable to reach phone is answered but no one answers documented in this encounter Plan of Treatment Upcoming Encounters Date Type Department Care Team (Late st Contact Info) Description 01/24/2024 2:30 PM EDT Office Visit Orthopaedic[address] [place] [phone] Otf Grier MD [address] [place] [address] 01/31/2024 11:45 AM EDT Office Visit [address] [place] [phone] Otf Grier MD [address] [place] [address] 02/05/2024 3:00 PM EDT Nurse Only Ancillary [address] [place] [address] [place], Nurse [address] [place] [address] 02/11/2024 3:00 PM EDT Nurse Only Ancillary [address] [place] [address] [place], Nurse [address] [place] [address] 03/14/2024 3:00 PM EDT Nurse Only Ancillary [address] [place] [address] [place], Nurse [address] [place] [address] 04/24/2024 3:30 PM EDT Office Visit Cardiology [address] [place] [address] Herberth Denny PA-C [address] [place] [address] Health Maintenance Due Date Last Done Comments DXA Scan 01/04/2023 01/05/2020, 01/04/2015 COVID-19 Vaccine ( season) 2023 Colonoscopy 04/19/2023 04/19/2018, 03/26, 09/29/2014, Additional history exists CKD HGB USE SMARTSET 23874 01/20/202401/19, 01/19/2023, 07/03/2022, Additional history exists Depression [...] Additional history exists CKD PHOS USE SMARTSET 29750 10/08/202409/23, 07/03/2022, 05/11/2021, Additional history exists DTaP,Tdap,and [...] encounter Medical Devices Implanted Type Area Assistant Coach Device Identifier Shelf Expiration Date Model / Serial / Lot Lens Intraoc 19.5 - [id number] - [id number] Implanted:Qty: 1 on 03/17/2021 by Migel Dejesus MD at OR [facility] Left: Eye [employer] 10/22/2025 [id number] / [id number] / [id number] Lens Intraoc 20.0 - [id number] - [id number] Implanted:Qty: 1 on 03/31/2021 by Migel Dejesus MD at OR [facility] Right: Eye [employer] 12/22/2025 [id number] / [id number] / [id number] documented as of this encounter Advance Directives Healthcare Agents on File Name Relationship Healthcare Agent Relationshi p Communication Mimi Vieyra Adult Child Health Care Repr esentative (appointed verbally by patient or by statute hierarchy) Yanci Adkins Adult Child Health Care Repr esentative (appointed verbally by patient or by statute hierarchy) Care Teams Wood Fence Installer Relationship Specialty Start Date End Date Rosemary Valentine MD [address] [place] [address] [place] [id number] PCP - General Family Medicine 09/05/23 documented as of this encounter
--- OUTSIDE RECORDS SUMMARY | 2024-04-16 06:42 | External Medical Summary | Summary of Care ---
Author Name Unknown Organization [facility] Address [address] [place] [address] Phone [phone] Care Team Providers Care Global Risk Management Director Name Role Phone Rosemary Valentine MD Primary Care Provide r Encounter Details Date Type Department Care Team (Late st Contact Info) Description 01/15/2024 Population Health External Data Unspecified Department Allergies Active Allergy Reactions Criticality Noted Date Comments Codeine Nausea/vomiting 08/15/2011 Propoxyphene N-Acetaminophen Nausea/vomiting Low 08/24/2008 Iodinated Contrast Media Hives 02/06/2023 Iodine Hives 01/08/2001 Latex 09/26/2012 Contact dermititis Nitrofurantoin Rash 09/07/2014 Metformin 04/12/2021 documented as of this encounter (statuses as of 01/18/2024) Medications Medication Sig Dispensed Refills Start Date [...] THE MORNING 90 Tablet 3 08/17/2022 Active Docusate Sodium 100 MG Oral Capsule [...] the morning. 90 Each 3 01/01/2024 Active Hospital, Clinic, or Other Facility Administered Medication Ordered Dose Route Frequency Start Date End Date Status vitamin b-12 (Cyanocobalamin) inj 1,000 mcgIndications:Vitamin B12 deficiency 1000 mcg IM [id number] 01/10/2024 12/11/2024 Active documented as of this encounter (statuses as of 01/18/2024) Active Problems Problem Noted Date Diagnosed Date [...] as of this encounter (statuses as of 01/18/2024) Resolved Problems Problem Noted Date Diagnosed Date [...] Taxonomy. Impaired fasting glucose 06/23/200607/2011 LOC PRIM [id number] 04/16/200609/24 LOC PRIM OSTEOARTH-ANKLE 04/16/2006 Sprain of [...] as of this encounter (statuses as of 01/18/2024) Immunizations Name Administration Dates Next Due Pneumococcal [...] 01/24/2024 2:30 PM EDT Office Visit Orthopaedics [address] [phone] Otf Grier MD [address] [place] [address] 01/31/2024 11:45 AM EDT Office Visit Orthopaedics [address] [phone] Otf Grier MD [address] [place] [address] 02/05/2024 3:00 PM EDT Nurse Only Ancillary [address] [place] [address] [place], Nurse [address] [place] [address] 02/11/2024 3:00 PM EDT Nurse Only Ancillary [address] [place] [address] [place], Nurse [address] [place] [address] 03/14/2024 3:00 PM EDT Nurse Only Ancillary [address] [place] [address] [place], Nurse [address] [place] [address] 04/24/2024 3:30 PM EDT Office Visit Cardiology [address] [place] [address] Herberth Denny PA-C [address] [place] [address] Health Maintenance Due Date Last Done Comments DXA Scan 01/04/2023 01/05/2020, 01/04/2015 COVID-19 Vaccine ( season) 2023 Colonoscopy 04/19/2023 04/19/2018, 03/26, 09/29/2014, Additional history exists CKD HGB USE SMARTSET 54133 01/20/202401/19, 01/19/2023, 07/03/2022, Additional history exists Depression [...] Additional history exists CKD PHOS USE SMARTSET 30082 10/08/202409/23, 07/03/2022, 05/11/2021, Additional history exists DTaP,Tdap,and [...] this encounter Medical Devices Implanted Type Area Psychology Tech Device Identifier Shelf Expiration Date Model / Serial / Lot Lens Intraoc 19.5 - [id number] - [id number] Implanted:Qty: 1 on 03/17/2021 by Migel Dejesus MD at OR [facility] Left: Eye [employer] 10/22/2025 [id number] / [id number] / [id number] Lens Intraoc 20.0 - [id number] - [id number] Implanted:Qty: 1 on 03/31/2021 by Mgiel Dejesus MD at OR [facility] Right: Eye [employer]OM[employer] 12/22/2025 [id number] / [id number] / [id number] documented as of this encounter Advance Directives Healthcare Agents on File Name Relationship Healthcare Agent Relationshi p Communication Mimi Vieyra Adult Child Health Care Repr esentative (appointed verbally by patient or by statute hierarchy) Yanci Adkins Adult Child Health Care Repr esentative (appointed verbally by patient or by statute hierarchy) Care Teams Global Risk Management Director Relationship Specialty Start Date End Date Rosemary Valentine MD [address] [place] [address] [place] [address] PCP - General Family Medicine 09/05/23 documented as of this encounter
--- OUTSIDE RECORDS SUMMARY | 2024-04-16 06:43 | External Medical Summary | Summary of Care ---
Author Name Unknown Organization [facility] Address [address] [place] [address] Phone [phone] Care Team Providers Care Brake Tester Name Role Phone Rosemary Valentine MD Primary Care Provide r Reason for Visit * Reason Comments Follow Up R knee pain Encounter Details Date Type Department Care Team (Latest Contact Info) Description 01/17/2024 3:00 PM EDT Office Visit Orthopaedics [address] [phone] Otf Grier MD [address] [place] [address] Primary osteoarthritis of right knee* Allergies Active Allergy Reactions Criticality Noted Date Comments Codeine Nausea/vomiting 08/15/2011 Propoxyphene N-Acetaminophen Nausea/vomiting Low 08/24/2008 Iodinated Contrast Media Hives 02/06/2023 Iodine Hives 01/08/2001 Latex 09/26/2012 Contact dermititis Nitrofurantoin Rash 09/07/2014 Metformin 04/12/2021 documented as of this encounter (statuses as of 01/17/2024) Medications Medication Sig Dispensed Refills Start Date [...] disease, without long-term current use of insulin ([facility]) Inject 0.75 mg under the skin [...] disease, without long-term current use of insulin ([facility]) Use once daily to check glucose [...] disease, without long-term current use of insulin ([facility]) Use once daily to check glucose [...] 1,000 mcgIndications:Vitamin B12 deficiency 1000 mcg IM [id number] 01/10/2024 12/11/2024 Active sodium hyaluronate (Gelsyn-3) 16.8 MG/2ML inj 16.8 mgIndications:Primary osteoarthritis of right knee 16.8 mg IX ONCE 01/17/2024 01/17/2024 Ended documented as of this encounter (statuses as of 01/17/2024) Active Problems Problem Noted Date Diagnosed Date [...] as of this encounter (statuses as of 01/17/2024) Resolved Problems Problem Noted Date Diagnosed Date [...] Taxonomy. Impaired fasting glucose 06/23/200607/2011 LOC PRIM [id number] 04/16/200609/24 LOC PRIM OSTEOARTH-ANKLE 04/16/2006 Sprain of [...] as of this encounter (statuses as of 01/17/2024) Immunizations Name Administration Dates Next Due Pneumococcal [...] Progress Notes * Otf Grier MD - 01/17/2024 3:00 PM EDT Violeta Calvert [id number] Violeta Calvert is a 77 year old female who presents for follow-up to [facility]. I saw her originally for this on 12/28/2022 (which is over a year ago), however she has been seen since for procedure only visits Violeta Calvert is here unaccompanied Quality: reviewed and agree with Nursing Notes for HPI elements History: Historyon 12/28/2022 - Pt presents today for right knee pain. Pain 10. Has difficulty standing and steps. Denies PT andbracing for right knee. Right knee attempted x 3 to be injected PCP unable to get into joint. Hx left LKR 5 years ago. xr knee 09/18/22. 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 Desires to repeat this series and was scheduled today. ROS: ROS per HPI otherwise non-contributory Past Medical History: Diagnosis Date Acute cystitis [...] leg with plywood and was sutured in [facility] ER, got infected Primary localized osteoarthrosis, lower leg 04/16/2006 Reflux esophagitis Rotator cuff tear Rotator cuff tear, left 10/2012 Sciatica 12/04/2003 Sleep apnea, obstructive Spondylosis with myelopathy cervical spine Statin intolerance Vitamin B12 deficiency Family History Problem Relation Name Age of Onset Hypertension Mother Heart Disorder Mother CHF, age 64 Stroke Father age 52 Hypertension Father Colon cancer Sister Nettie Hypertension Sister Indira No Known Problems Sister Oksana Lung cancer Brother Sandoval age 72 Heart disease Brother Robert in his 70s Breast Cancer No significant family history Social History Socioeconomic History Marital status: Spouse name: Not on file Number of children: Not on file Years of education: Not on file Highest education level: Not on file Occupational History Occupation: worker Employer: [employer] Tobacco Use Smoking status: Former Current packs/day: 0.00 Average packs/day: 0.5 packs/day for 13.0 years (6.5 ttl pk-yrs) Types: Cigarettes Start date: 11/23/1958 Quit date: 11/24/1971 Years since quittin.1 Smokeless tobacco: Never Tobacco comments: Quit in 1971 Vaping Use Vaping status: Never Used Substance and Sexual Activity Alcohol use: No Drug use: No Sexual activity: Not Currently Partners: Male Other Topics Concern Not on file Social History Narrative since 2008 No pets. No mold. Social Determinants of Health Financial Resource Strain: Low Risk (07/30/2023) Financial Resource Strain Do you have any trouble paying for your medications, or do you think you might in the future? (Adult - for ages 18 years and over): No Does your family have trouble paying for medicine? (Household - for ages 0-17 years): Not on file Food Insecurity: No Food Insecurity (07/30/2023) Food Insecurity Do you need food for this week? (Adult - for ages 18 years and over): No Are you able to get enough food for your family? (Household - for ages 0-17 years): Not on file Does your family need food this week? (Household - for ages 0-17 years): Not on file Do you always have enough food for your family? (Household - for ages 0-17 years): Not on file Transportation Needs: No Transportation Needs (07/30/2023) Transportation Needs Do you have trouble getting a ride to medical visits or work? (Adult - for ages 18 years and over):Never True Does your family have a hard time getting a ride to doctors visits? (Household - for ages 0-17 years): Not on file Has lack of transportation kept you from medical appointments, meetings, work, or from getting things needed for daily living? Check all that apply. (Adult - for ages 18 years and over): Not on file Do you (or your family) have trouble finding or paying for a ride (transportation)? (Household - for ages 0-17 years): Not on file Social Connections: Socially Integrated (07/30/2023) Social Connections How often do you feel lonely or isolated from those around you? (Adult - for ages 18 years and over): Never Housing Stability: Low Risk (07/30/2023) Housing Stability Do you currently live in a halfway or have no steady place to sleep at night? (Adult - for ages 18 years and over): No Do you think you are at risk of becoming homeless? (Adult - for ages 18 years and over): No Does your family worry about paying for your home or becoming homeless? (Household - for ages 0-17 years): Not on file Are you homeless or worried that you might be in the future? (Adult - for ages 18 years and over): Not on file Are you (or your family) homeless or worried that you might be in the future? (Household - for ages0-17 years): Not on file Physical Exam Constitutional: Generally well-nourished and in no acute distress Psychiatric: Mood and Affect normal Eyes: EOMI Respiratory: Normal respiratory effort with regular rate and rhythm Cardiovascular: No edema in the affected extremity(s) Knee Exam, Bilateral Inspection: Unremarkable Alignment: Normal Bilateral Effusion: Negative Bilateral Palpation: Greatest tenderness was along the lateral joint ROM: Flexion/Neutral/Extension:R - 120/0/0 Special Tests: Crepitus - positive right Radiology (I have personally reviewed the following films): 09/18/2022: Three view x-ray of the right knee FINDINGS Severe lateral femorotibial compartment predominant knee arthrosis. There also is significant patellofemoral arthrosis and moderate tricompartmental osteophytosis. Limited assessment for joint effusion due to obliquity of attempted lateral but small effusion suspected. Vascular calcifications. Curvi linear focus of heterotopic ossification along the superior aspect of the patella but stable from prior. Chondrocalcinosis. IMPRESSION IMPRESSION Severe lateral femorotibial compartment predominant right knee arthrosis as above, with other chronic findings also as above. Assessment and Plan: 1) chronic right knee pain Suspect secondary to DJD which is greatest laterally and severe Intra-articular steroid injection performed 12/28/2022 gave her benefit. However she had even greater benefit from viscosupplementation. Viscosupplementation with Gelsyn completed on 03/08/2023 gave her substantial usp benefit lasting 9-10 months. Desires to repeat this series and was scheduled today. Most recent hemoglobin A1c 10/09/2023 value 6.4 Diagnosis: OA right knee. The patient is here for the first of a series of Gelsyn injections. There [...] Grier MD Primary Care Sports Medicine Orthopaedics [address] [phone] documented in this encounter Nursing Notes * Miguelina To ATC - 01/17/2024 2:49 PM EDT Right knee pain. Return for injection. States that she would like injection today. Pain with walkoing. documented in this encounter Plan of Treatment Upcoming Encounters Date Type Department Care Team (Late st Contact Info) Description 01/24/2024 2:30 PM EDT Office Visit Orthopaedics [address] [phone] Otf Grier MD [address] [place] [address] 01/31/2024 11:45 AM EDT Office Visit Orthopaedics [address] [place] [phone] Otf Grier MD [address] [place] [address] 02/05/2024 3:00 PM EDT Nurse Only Ancillary [address] [place] [address] Kateryna, Nurse [address] [place] [address] 02/11/2024 3:00 PM EDT Nurse Only Ancillary [address] [place] [address] Samantha, Nurse [address] [place] [address] 03/14/2024 3:00 PM EDT Nurse Only Ancillary [address] [place] [address] Samantha, Nurse [address] [place] [address] 04/24/2024 3:30 PM EDT Office Visit Cardiology [address] [place] [address] Herberth Denny PATalC [address] [place] [address] Health Maintenance Due Date Last Done Comments DXA Scan 01/04/2023 01/05/2020, 01/04/2015 COVID-19 Vaccine ( season) 2023 Colonoscopy 04/19/2023 04/19/2018, 03/26, 09/29/2014, Additional history exists CKD HGB USE SMARTSET 48386 01/20/202401/19, 01/19/2023, 07/03/2022, Additional history exists Depression [...] Additional history exists CKD PHOS USE SMARTSET 10483 10/08/202409/23, 07/03/2022, 05/11/2021, Additional history exists DTaP,Tdap,and [...] this encounter Medical Devices Implanted Type Area Mold Yarn Supervisor Device Identifier Shelf Expiration Date Model / Serial / Lot Lens Intraoc 19.5 - [id number] - [id number] Implanted:Qty: 1 on 03/17/2021 by Migel Dejesus MD at OR [facility] Left: Eye [employer] 10/22/2025 [id number] / [id number] / [id number] Lens Intraoc 20.0 - [id number] - [id number] Implanted:Qty: 1 on 03/31/2021 by Migel Dejesus MD at OR [facility] Right: Eye [employer]OMB 12/22/2025 [id number] / [id number] / [id number] documented as of this encounter Visit Diagnoses Diagnosis Primary osteoarthritis of right knee- Primary Primary localized osteoarthrosis, lower leg documented in this encounter Administered Medications Inactive Administered Medications - up to 3 most recent administrations Medication Order MAR Action Action Date Dose Rate Site sodium hyaluronate (Gelsyn-3) 16.8 MG/2ML inj 16.8 mg 16.8 mg, Intra-Articular, ONCE, On Ginger 01/17/24 at 1600, For 1 dose Given 01/17/2024 3:18 PM EDT 16.8 mg K nee Right documented in this encounter Advance Directives Healthcare Agents on File Name Relationship Healthcare Agent Relationshi p Communication Mimi Vieyra Adult Child Health Care Repr esentative (appointed verbally by patient or by statute hierarchy) Yanci Adkins Adult Child Health Care Repr esentative (appointed verbally by patient or by statute hierarchy) Care Teams Brake Tester Relationship Specialty Start Date End Date Rosemary Valentine MD [address] [place] [address] [place] [phone] PCP - General Family Medicine 09/05/23 documented as of this encounter
--- OUTSIDE RECORDS SUMMARY | 2024-04-16 06:43 | External Medical Summary | Summary of Care ---
Author Name Unknown Organization [facility] Address [address] [place] [address] Phone [phone] Care Team Providers Care Director Sales Name Role Phone Rosemary Valentine MD Primary Care Provide r Reason for Visit * Reason Onset Date Comments Med Request 01/17/2024 Pre Cert/Prior Auth 01/17/2024 [facility] Encounter Details Date Type Department Care Team (Late st Contact Info) Description 01/17/2024 Telephone Family [address] [phone] Rosemary Valentine MD [address] [place] [address] Med Request; Pre Cert/Prior Auth ([facility]) Allergies Active Allergy Reactions Criticality Noted Date [...] use of insulin ([facility]) Inject 0.75 mg under the [...] 1,000 mcgIndications:Vitamin B12 deficiency 1000 mcg IM [id number] 01/10/2024 12/11/2024 Active documented as of this [...] Taxonomy. Impaired fasting glucose 06/23/200607/2011 LOC PRIM [id number] 04/16/200609/24 LOC PRIM OSTEOARTH-ANKLE 04/16/2006 Sprain of [...] Telephone Encounter - Yasmin Raymundo RN - 01/17/2024 2:06 PM EDT Per previous encounters we have tried Breo, and Elizabeth I called and spoke with Kaylie at [facility] pharmacy, [facility] does cover both these meds, there is galileo high Co-Pay. Pt needs an auth done thru [facility] for this, I will send a request to [facility] asking for an auth , ph [phone] * Telephone Encounter - Betty Hernandez OSA - 01/17/2024 1:43 PM EDT Patient called because her insurance will not cover the Breo inhaler. Patient is asking for something that will be covered. Please call today after 3:30, 4:00 PM * Telephone Encounter - Yasmin Raymundo RN - 01/17/2024 1:08 PM EDT Pt should have a Breo inhaler (Fluticasone) to use every morning sent 01-01-24 to [facility] and she has analbuterol prn Pt will call [facility] to see what the issue is * Telephone Encounter - Heydi Machado paste up artist - 01/17/2024 11:26 AM EDT Patient is calling to ask that someone call her back because she doesn't know what inhaler she is suppose to be on . Has no inhalers for the morning and has trouble breathing .; Refused to speak to nurse. Just wants a call back and appropriate meds called in . Heydi Torres Receptionist Nurse III [facility] 01/17/2024,11:27 AM * Telephone Encounter - Thea Mccann LPN - 01/17/2024 11:16 AM EDT Daughter Mimi aware Levothyroxine was filled on 12/17/23 and does not need any more refills until 06/17/24 She is going to ask her what inhaler she needs refilled. Not noted in msg below * Telephone Encounter - Fabiola Chisholm OSA - 01/17/2024 11:10 AM EDT Pt requesting refill on levothyroxine and inhaler documented in this encounter Plan of Treatment Upcoming Encounters Date Type Department Care Team (Late st Contact Info) Description 01/17/2024 3:00 PM EDT Office Visit Orthopaedics [address] [place] [phone] Otf Grier MD [address] [place] [address] 02/05/2024 3:00 PM EDT Nurse Only Ancillary [address] [place] [address] Kateryna, Nurse [address] [place] [address] 02/11/2024 3:00 PM EDT Nurse Only Ancillary [address] [place] [address] Samantha, Nurse [address] [place] [address] 03/14/2024 3:00 PM EDT Nurse Only Ancillary [address] [place] [address] Samantha, Nurse [address] [place] [address] 04/24/2024 3:30 PM EDT Office Visit Cardiology [address] [place] [address] Herberth Denny PA-C [address] [place] [address] Health Maintenance Due Date Last Done Comments DXA Scan 01/04/2023 01/05/2020, 01/04/2015 COVID-19 Vaccine ( season) 2023 Colonoscopy 04/19/2023 04/19/2018, 03/26, 09/29/2014, Additional history exists CKD HGB USE SMARTSET 01947 01/20/202401/19, 01/19/2023, 07/03/2022, Additional history exists Depression [...] Additional history exists CKD PHOS USE SMARTSET 63920 10/08/202409/23, 07/03/2022, 05/11/2021, Additional history exists DTaP,Tdap,and [...] this encounter Medical Devices Implanted Type Area Ironer Device Identifier Shelf Expiration Date Model / Serial / Lot Lens Intraoc 19.5 - [id number] - [id number] Implanted:Qty: 1 on 03/17/2021 by Migel Dejesus MD at OR [facility] Left: Eye [employer]OM[employer] 10/22/2025 [id number] / [id number] / [id number] Lens Intraoc 20.0 - [id number] - [id number] Implanted:Qty: 1 on 03/31/2021 by Migel Dejesus MD at OR [facility] Right: Eye BA[employer]CH [employer] LOMB 12/22/2025 [id number] / [id number] / [id number] documented as of this encounter Advance Directives Healthcare Agents on File Name Relationship Healthcare Agent Relationshi p Communication Mimi Jarrell Adult Child Health Care Repr esentative (appointed verbally by patient or by statute hierarchy) Yanci Adkins Adult Child Health Care Repr esentative (appointed verbally by patient or by statute hierarchy) Care Teams Director Sales Relationship Specialty Start Date End Date Rosemary Valentine MD [address] [place] [address] [place] [address] PCP - General Family Medicine 09/05/23 documented as of this encounter
--- OUTSIDE RECORDS SUMMARY | 2024-04-16 06:47 | External Medical Summary | Summary of Care ---
Author Name Unknown Organization [facility] Address [address] [place] [address] Phone [phone] Care Team Providers Care Board Attendant Name Role Phone Rosemary Valentine MD Primary Care Provide r Reason for Visit * Reason Onset Date Comments Med Request 01/17/2024 Encounter Details Date Type Department Care Team (Late st Contact Info) Description 01/17/2024 Telephone Family Medicine [address] [phone] Rosemary Valentine MD [address] [place], [place] [address] [address] Med Request Allergies Active Allergy Reactions [...] insulin ([facility]) Inject 0.75 mg under the skin once [...] 1,000 mcgIndications:Vitamin B12 deficiency 1000 mcg IM [id number] 01/10/2024 12/11/2024 Active documented as of this [...] Taxonomy. Impaired fasting glucose 06/23/200607/2011 LOC PRIM [id number] 04/16/200609/24 LOC PRIM OSTEOARTH-ANKLE 04/16/2006 Sprain of [...] No 07/30/2023 Does the household have a [facility] source of income? (Household - for [...] encounter Miscellaneous Notes * Telephone Encounter - Betty Hernandez OSA [...] is * Telephone Encounter - Heydi Machado adjustment clerk - 01/17/2024 11:26 AM EDT Patient is calling to ask that someone call her back because she doesn't know what inhaler she is suppose to be on . Has no inhalers for the morning and has trouble breathing .; Refused to speak to nurse. Just wants a call back and appropriate meds called in . Heydi Torres Gearman III [facility] 01/17/2024,11:27 [...] 01/17/2024 3:00 PM EDT Office Visit Orthopaedics [address] [phone] Otf Grier MD [address] [place] [address] 02/05/2024 3:00 PM EDT Nurse Only Ancillary [address] [place] [address] Bertoey, Nurse [address] [place] [address] 02/11/2024 3:00 PM EDT Nurse Only Ancillary [address] [place] [address] Samantha, Nurse [address] [place] [address] 03/14/2024 3:00 PM EDT Nurse Only Ancillary [address] [place] [address] Samantha Nurse [address] [place] [address] 04/24/2024 3:30 PM EDT Office Visit Cardiology [address] [place] [address] Herberth Denny PA-C [address] [place] [address] Health Maintenance Due Date Last Done Comments DXA Scan 01/04/2023 01/05/2020, 01/04/2015 COVID-19 Vaccine ( season) 2023 Colonoscopy 04/19/2023 04/19/2018, 03/26, 09/29/2014, Additional history exists CKD HGB USE SMARTSET 60400 01/20/202401/19, 01/19/2023, 07/03/2022, Additional history exists Depression [...] Additional history exists CKD PHOS USE SMARTSET 63005 10/08/202409/23, 07/03/2022, 05/11/2021, Additional history exists DTaP,Tdap,and [...] this encounter Medical Devices Implanted Type Area Hospital Administrator Device Identifier Shelf Expiration Date Model / Serial / Lot Lens Intraoc 19.5 - [id number] - [id number] Implanted:Qty: 1 on 03/17/2021 by Migel Dejesus MD at OR [facility] Left: Eye [employer]OMB 10/22/2025 [id number] / [id number] / [id number] Lens Intraoc 20.0 - [id number] - [id number] Implanted:Qty: 1 on 03/31/2021 by Migel Dejesus MD at OR [facility] Right: Eye [employer]CH [employer] LOMB 12/22/2025 [id number] / [id number] / [id number] documented as of this encounter Advance Directives Healthcare Agents on File Name Relationship Healthcare Agent Relationshi p Communication Mimi Jarrell Adult Child Health Care Repr esentative (appointed verbally by patient or by statute hierarchy) Yanci Adkins Adult Child Health Care Repr esentative (appointed verbally by patient or by statute hierarchy) Care Teams Board Attendant Relationship Specialty Start Date End Date Rosemary Valentine MD [address] [place] [address] [place] [phone] PCP - General Family Medicine 09/05/23 documented as of this encounter
--- OUTSIDE RECORDS SUMMARY | 2024-04-16 06:48 | External Medical Summary | Summary of Care ---
Author Name Unknown Organization [facility] Address [address] [place] [address] Phone [phone] Care Team Providers Care Material Yard Clerk Name Role Phone Rosemary Valentine MD Primary Care Provide r Reason for Visit * Reason Onset Date Comments Med Request 01/17/2024 Encounter Details Date Type Department Care Team (Late st Contact Info) Description 01/17/2024 Telephone Family Medicine [address] [address] Rosemary Valentine MD [address] [place], [place] [address] [address] Med Request Allergies Active Allergy Reactions [...] 1,000 mcgIndications:Vitamin B12 deficiency 1000 mcg IM [id number] 01/10/2024 12/11/2024 Active documented as of this [...] Taxonomy. Impaired fasting glucose 06/23/200607/2011 LOC PRIM [id number] 04/16/200609/24 LOC PRIM OSTEOARTH-ANKLE 04/16/2006 Sprain of [...] No 07/30/2023 Does the household have a [facility] source of income? (Household - for ages [...] issue is * Telephone Encounter - Heydi Machado, tool profiling machine set up operator - 01/17/2024 11:26 AM EDT Patient is calling to ask that someone call her back because she doesn't know what inhaler she is suppose to be on . Has no inhalers for the morning and has trouble breathing .; Refused to speak to nurse. Just wants a call back and appropriate meds called in . Heydi Torres Street Light Inspector III [facility] ([facility]) 01/17/2024,11:27 [...] 01/17/2024 3:00 PM EDT Office Visit Orthopaedics [address] [place] [phone] Otf Grier MD [address] [place] [address] 02/05/2024 3:00 PM EDT Nurse Only Ancillary [address] [place] [address] [place], Nurse [address] [place] [address] 02/11/2024 3:00 PM EDT Nurse Only Ancillary [address] [place] [address] [place], Nurse [address] [place] [address] 03/14/2024 3:00 PM EDT Nurse Only Ancillary [address] [place] [address] Samantha, Nurse [address] [place] [address] 04/24/2024 3:30 PM EDT Office Visit Cardiology [address] [place] [address] Herberth Denny PA-C [address] [place] [address] Health Maintenance Due Date Last Done Comments DXA Scan 01/04/2023 01/05/2020, 01/04/2015 COVID-19 Vaccine ( season) 2023 Colonoscopy 04/19/2023 04/19/2018, 03/26, 09/29/2014, Additional history exists CKD HGB USE SMARTSET 25895 01/20/202401/19, 01/19/2023, 07/03/2022, Additional history exists Depression [...] Additional history exists CKD PHOS USE SMARTSET 18043 10/08/202409/23, 07/03/2022, 05/11/2021, Additional history exists DTaP,Tdap,and [...] this encounter Medical Devices Implanted Type Area Radioactivity Technician Device Identifier Shelf Expiration Date Model / Serial / Lot Lens Intraoc 19.5 - [id number] - [id number] Implanted:Qty: 1 on 03/17/2021 by Migel Dejesus MD at OR [facility] Left: Eye [employer] LOMB 10/22/2025 [id number] / [id number] / [id number] Lens Intraoc 20.0 - [id number] - [id number] Implanted:Qty: 1 on 03/31/2021 by Migel Dejesus MD at OR [facility] Right: Eye BAUSCH [employer] LOMB 12/22/2025 [id number] / [id number] / [id number] documented as of this encounter Advance Directives Healthcare Agents on File Name Relationship Healthcare Agent Relationshi p Communication Mimi Annshaniceraf Adult Child Health Care Repr esentative (appointed verbally by patient or by statute hierarchy) Yanci Adkins Adult Child Health Care Repr esentative (appointed verbally by patient or by statute hierarchy) Care Teams Material Yard Clerk Relationship Specialty Start Date End Date Rosemary Valentine MD [address] [place] [address] [place] [address] PCP - General Family Medicine 09/05/23 documented as of this encounter
--- OUTSIDE RECORDS SUMMARY | 2024-04-16 06:48 | External Medical Summary | Summary of Care ---
Author Name Unknown Organization [facility] Address [address] [place] [address] Phone [phone] Care Team Providers Care Slabbing Machine Operator Name Role Phone Rosemary Valentine MD Primary Care Provide r Reason for Visit * Reason Onset Date Comments Med Request 01/17/2024 Encounter Details Date Type Department Care Team (Late st Contact Info) Description 01/17/2024 Telephone Family Medicine [address] [address] Rosemary Valentine MD [address] [place], [place] [address] [address] Med Request Allergies Active Allergy Reactions [...] 1,000 mcgIndications:Vitamin B12 deficiency 1000 mcg IM [id number] 01/10/2024 12/11/2024 Active documented as of this [...] Taxonomy. Impaired fasting glucose 06/23/200607/2011 LOC PRIM [id number] 04/16/200609/24 LOC PRIM OSTEOARTH-ANKLE 04/16/2006 Sprain of [...] No 07/30/2023 Does the household have a [facility] source of income? (Household - for [...] encounter Miscellaneous Notes * Telephone Encounter - Heydi Machado, commercial pilot - 01/17/2024 11:26 AM EDT Patient is calling to ask that someone call her back because she doesn't know what inhaler she is suppose to be on . Has no inhalers for the morning and has trouble breathing .; Refused to speak to nurse. Just wants a call back and appropriate meds called in . Brian, Heydi Machado Automotive Artist III [facility] ([facility]) 01/17/2024,11:27 [...] 01/17/2024 3:00 PM EDT Office Visit Orthopaedics [address] [place] [phone] Otf Grier MD [address] [place] [address] 02/05/2024 3:00 PM EDT Nurse Only Ancillary [address] [place] [address] Kateryna Nurse [address] [place] [address] 02/11/2024 3:00 PM EDT Nurse Only Ancillary [address] [place] [address] Samantha, Nurse [address] [place] [address] 03/14/2024 3:00 PM EDT Nurse Only Ancillary [address] [place] [address] [place], Nurse [address] [place] [address] 04/24/2024 3:30 PM EDT Office Visit Cardiology [address] [place] [address] Herberth Denny PA-C [address] [place] [address] Health Maintenance Due Date Last Done Comments DXA Scan 01/04/2023 01/05/2020, 01/04/2015 COVID-19 Vaccine ( season) 2023 Colonoscopy 04/19/2023 04/19/2018, 03/26, 09/29/2014, Additional history exists CKD HGB USE SMARTSET 93236 01/20/202401/19, 01/19/2023, 07/03/2022, Additional history exists Depression [...] Additional history exists CKD PHOS USE SMARTSET 59409 10/08/202409/23, 07/03/2022, 05/11/2021, Additional history exists DTaP,Tdap,and [...] this encounter Medical Devices Implanted Type Area Manager Equity Device Identifier Shelf Expiration Date Model / Serial / Lot Lens Intraoc 19.5 - [id number] - [id number] Implanted:Qty: 1 on 03/17/2021 by Migel Dejesus MD at OR [facility] Left: Eye BAUSCH [employer] LOMB 10/22/2025 [id number] / [id number] / [id number] Lens Intraoc 20.0 - [id number] - [id number] Implanted:Qty: 1 on 03/31/2021 by Migel Dejesus MD at OR [facility] Right: Eye BAUSCH [employer] LOMB 12/22/2025 [id number] / [id number] / [id number] documented as of this encounter Advance Directives Healthcare Agents on File Name Relationship Healthcare Agent Relationshi p Communication Mimi Vieyra Adult Child Health Care Repr esentative (appointed verbally by patient or by statute hierarchy) Yanci Adkins Adult Child Health Care Repr esentative (appointed verbally by patient or by statute hierarchy) Care Teams Slabbing Machine Operator Relationship Specialty Start Date End Date Rosemary Valentine MD [address] [place] [address] [place] [address] PCP - General Family Medicine 09/05/23 documented as of this encounter
--- OUTSIDE RECORDS SUMMARY | 2024-04-16 06:48 | External Medical Summary | Summary of Care ---
Author Name Unknown Organization [facility] Address [address] [place] [address] Phone [phone] Care Team Providers Care Assistant Finance Director Name Role Phone Rosemary Valentine MD Primary Care Provide r Reason for Visit * Reason Onset Date Comments Medication Problem 12/31/2023 Encounter Details Date Type Department Care Team (Late st Contact Info) Description 12/31/2023 Telephone Family Medicine [address] [address] Rosemary Valentine MD [address] [place], [place] [address] [address] Medication Problem Allergies Active Allergy Reactions Criticality Noted Date Comments Codeine Nausea/vomiting 08/15/2011 Propoxyphene N-Acetaminophen Nausea/vomiting Low 08/24/2008 Iodinated Contrast Media Hives 02/06/2023 Iodine Hives 01/08/2001 Latex 09/26/2012 Contact dermititis Nitrofurantoin Rash 09/07/2014 Metformin 04/12/2021 documented as of this encounter (statuses as of 01/11/2024) Medications Medication Sig Dispensed Refills Start Date [...] a day E11.9 1 Kit 2 Active hydroCHLOROthiazide 12.5 MG Oral Tablet (Hydrodiuril) TAKE ONE TABLET BY MOUTH IN THE MORNING 90 Tablet 3 3 Active Docusate Sodium 100 MG Oral Capsule [...] long-term current use of insulin ([facility]) Inject 0.75 mg under the [...] long-term current use of insulin ([facility]) Use once daily to check [...] other meds) 90 Tablet 1 4 Active Nystatin 753717 UNIT/ML Mouth/Throat SuspensionIndicatio ns:Thrush Swish and swallow 5 mL in the morning and 5 mL at noon and 5 mL in the evening and 5 mL before bedtime. For thrush.. 240 mL 1 4 01/16/20 24 Active Diclofenac Sodium 1 % External Gel [...] glucose E11.9 100 Each 5 4 Active Fluticasone Furoate-Vilanterol 100-25 MCG/ACT Inhalation Aerosol Powder Breath Activated (BREO ellipta) Inhale 1 Puff by mouth in the morning. 90 Each 3 4 Active Fluticasone-Umeclid in-Vilant 200-62.5-25 MCG/ACT Aerosol Powder Breath Activated (Trelegy Ellipta) Inhale 1 Puff by mouth daily. 60 Blister Dosing Unit 3 4 01/01/20 24 Discontinued Hospital, Clinic, or Other Facility Administered Medication Ordered Dose Route Frequency Start Date End Date Status vitamin b-12 (Cyanocobalamin) inj 1,000 mcgIndications:Vitamin B12 deficiency 1000 mcg IM [id number] 02/06/2023 01/08/2024 Ended documented as of this encounter (statuses as of 01/11/2024) Active Problems Problem Noted Date Diagnosed Date [...] as of this encounter (statuses as of 01/11/2024) Resolved Problems Problem Noted Date Diagnosed Date [...] Taxonomy. Impaired fasting glucose 06/23/200607/2011 LOC PRIM [id number] 04/16/200609/24 LOC PRIM OSTEOARTH-ANKLE 04/16/2006 Sprain of [...] as of this encounter (statuses as of 01/11/2024) Immunizations Name Administration Dates Next Due Pneumococcal [...] No 07/30/2023 [facility]? (Household - [...] Telephone Encounter - Henny Muñoz CPhT - 01/11/2024 12:32 PM EDT Pt daughter is calling to see which medication the pt is to be taking. Informed daughter of previous information. Thank you, Leslie Muñoz Playground Supervisor I [facility] 01/11/2024,12:33 PM * Telephone Encounter - Rosemary Valentine MD - 01/01/2024 1:26 PM EDT Sent Breo * Telephone Encounter - Virginie Alvarado OSA - 12/31/2023 2:46 PM EDT Patient calling her insurance no longer covers the Trelegy Ellipta and she is requesting something different to be sent in that is covered. [facility] [place]. Please advise. documented in this encounter Plan of Treatment Upcoming Encounters Date Type Department Care Team (Late st Contact Info) Description 01/17/2024 3:00 PM EDT Office Visit Orthopaedics [address] [place] [phone] Otf Grier MD [address] [place] [address] 02/05/2024 3:00 PM EDT Nurse Only Ancillary [address] [place] [address] Kateryna Nurse [address] [place] [address] 02/11/2024 3:00 PM EDT Nurse Only Ancillary [address] [place] [address] Samantha Nurse [address] [place] [address] 03/14/2024 3:00 PM EDT Nurse Only Ancillary [address] [place] [address] [place], Nurse [address] [place] [address] 04/24/2024 3:30 PM EDT Office Visit Cardiology [address] [place] [address] Herberth Denny PA-C [address] [place] [address] Health Maintenance Due Date Last Done Comments DXA Scan 01/04/2023 01/05/2020, 01/04/2015 COVID-19 Vaccine ( season) 2023 Colonoscopy 04/19/2023 04/19/2018, 03/26, 09/29/2014, Additional history exists CKD HGB USE SMARTSET 80074 01/20/202401/19, 01/19/2023, 07/03/2022, Additional history exists Depression [...] Additional history exists CKD PHOS USE SMARTSET 19022 10/08/202409/23, 07/03/2022, 05/11/2021, Additional history exists DTaP,Tdap,and [...] this encounter Medical Devices Implanted Type Area Frame Wirer Device Identifier Shelf Expiration Date Model / Serial / Lot Lens Intraoc 19.5 - [id number] - [id number] Implanted:Qty: 1 on 03/17/2021 by Migel Dejesus MD at OR [facility] Left: Eye [employer]CH [employer] LOMB 10/22/2025 [id number] / [id number] / [id number] Lens Intraoc 20.0 - [id number] - [id number] Implanted:Qty: 1 on 03/31/2021 by Migel Dejesus MD at OR [facility] Right: Eye BAUSCH [employer] LOMB 12/22/2025 [id number] / [id number] / [id number] documented as of this encounter Advance Directives Healthcare Agents on File Name Relationship Healthcare Agent Relationshi p Communication Mimi Jarrell Adult Child Health Care Repr esentative (appointed verbally by patient or by statute hierarchy) Yanci Adkins Adult Child Health Care Repr esentative (appointed verbally by patient or by statute hierarchy) Care Teams Assistant Finance Director Relationship Specialty Start Date End Date Rosemary Valentine MD [address] [place] [address] [place] [phone] PCP - General Family Medicine 09/05/23 documented as of this encounter
--- OUTSIDE RECORDS SUMMARY | 2024-04-16 06:48 | External Medical Summary | Summary of Care ---
Author Name Unknown Organization [facility] Address [address] [place] [address] Phone [phone] Care Team Providers Care Background Investigator Name Role Phone Rosemary Valentine MD Primary Care Provide r Reason for Visit * Reason Onset Date Comments Med Request 01/17/2024 Encounter Details Date Type Department Care Team (Late st Contact Info) Description 01/17/2024 Telephone Family Medicine [address] [address] Rosemary Valentine MD [address] [place], [place] [address] [address] Med Request Allergies Active Allergy Reactions [...] current use of insulin ([facility]) Inject 0.75 mg under the skin once [...] 1,000 mcgIndications:Vitamin B12 deficiency 1000 mcg IM [id number] 01/10/2024 12/11/2024 Active documented as of this [...] Taxonomy. Impaired fasting glucose 06/23/200607/2011 LOC PRIM [id number] 04/16/200609/24 LOC PRIM OSTEOARTH-ANKLE 04/16/2006 Sprain of [...] No 07/30/2023 Does the household have a [facility] source of income? (Household - for [...] Notes * Telephone Encounter - Heydi Machado, manager quality systems - 01/17/2024 11:26 AM EDT Patient is calling to ask that someone call her back because she doesn't know what inhaler she is suppose to be on . Has no inhalers for the morning and has trouble breathing .; Refused to speak to nurse. Just wants a call back and appropriate meds called in . Brian, Heydi Machado Duck Bill Operator III [facility] ([facility]) 01/17/2024,11:27 [...] 01/17/2024 3:00 PM EDT Office Visit Orthopaedics [address] [place] [phone] Otf Grier MD [address] [place] [address] 02/05/2024 3:00 PM EDT Nurse Only Ancillary [address] [place] [address] Kateryna Nurse [address] [place] [address] 02/11/2024 3:00 PM EDT Nurse Only Ancillary [address] [place] [address] [place], Nurse [address] [place] [address] 03/14/2024 3:00 PM EDT Nurse Only Ancillary [address] [place] [address] [place], Nurse [address] [place] [address] 04/24/2024 3:30 PM EDT Office Visit Cardiology [address] [place] [address] Herberth Denny PA-C [address] [place] [address] Health Maintenance Due Date Last Done Comments DXA Scan 01/04/2023 01/05/2020, 01/04/2015 COVID-19 Vaccine ( season) 2023 Colonoscopy 04/19/2023 04/19/2018, 03/26, 09/29/2014, Additional history exists CKD HGB USE SMARTSET 78785 01/20/202401/19, 01/19/2023, 07/03/2022, Additional history exists Depression [...] Additional history exists CKD PHOS USE SMARTSET 39164 10/08/202409/23, 07/03/2022, 05/11/2021, Additional history exists DTaP,Tdap,and [...] encounter Medical Devices Implanted Type Area Supervisor Brine Device Identifier Shelf Expiration Date Model / Serial / Lot Lens Intraoc 19.5 - [id number] - [id number] Implanted:Qty: 1 on 03/17/2021 by Migel Dejesus MD at OR [facility] Left: Eye [employer]CH [employer] LOMB 10/22/2025 [id number] / [id number] / [id number] Lens Intraoc 20.0 - [id number] - [id number] Implanted:Qty: 1 on 03/31/2021 by Migel Dejesus MD at OR [facility] Right: Eye BAUSCH [employer] LOMB 12/22/2025 [id number] / [id number] / [id number] documented as of this encounter Advance Directives Healthcare Agents on File Name Relationship Healthcare Agent Relationshi p Communication Mimi Vieyra Adult Child Health Care Repr esentative (appointed verbally by patient or by statute hierarchy) Yanci Adkins Adult Child Health Care Repr esentative (appointed verbally by patient or by statute hierarchy) Care Teams Background Investigator Relationship Specialty Start Date End Date Rosemary Valentine MD [address] [place] [address] [place] [address] PCP - General Family Medicine 09/05/23 documented as of this encounter
--- OUTSIDE RECORDS SUMMARY | 2024-04-16 06:49 | External Medical Summary | Summary of Care ---
Author Name Unknown Organization [facility] Address [address] [place] [address] Phone [phone] Care Team Providers Care Punch Card Operator Name Role Phone Rosemary Valentine MD Primary Care Provide r Encounter Details Date Type Department Care Team (Late st Contact Info) Description 01/07/2024 9:30 AM EDT Scheduled Telephone Care Coordination and Integration [address] [place], [place] [phone] Iza Do Community Health Welder 2Nd Shift [address] [place] [address] Allergies Active Allergy Reactions Criticality Noted Date Comments Codeine Nausea/vomiting 08/15/2011 Propoxyphene N-Acetaminophen Nausea/vomiting Low 08/24/2008 Iodinated Contrast Media Hives 02/06/2023 Iodine Hives 01/08/2001 Latex 09/26/2012 Contact dermititis Nitrofurantoin Rash 09/07/2014 Metformin 04/12/2021 documented as of this encounter (statuses as of 01/07/2024) Medications Medication Sig Dispensed Refills Start Date [...] use of insulin ([facility]) Inject 0.75 mg under the skin [...] other meds) 90 Tablet 1 12/17/2023 Active Nystatin 999335 UNIT/ML Mouth/Throat SuspensionIndication s:Thrush Swish and swallow 5 mL in the morning and 5 mL at noon and 5 mL in the evening and 5 mL before bedtime. For thrush.. 240 mL 1 12/17/2023 Active Diclofenac Sodium 1 % [...] 1,000 mcgIndications:Vitamin B12 deficiency 1000 mcg IM [id number] 02/06/2023 01/08/2024 Active documented as of this encounter (statuses as of 01/07/2024) Active Problems Problem Noted Date Diagnosed Date [...] as of this encounter (statuses as of 01/07/2024) Resolved Problems Problem Noted Date Diagnosed Date [...] Taxonomy. Impaired fasting glucose 06/23/200607/2011 LOC PRIM [id number] 04/16/200609/24 LOC PRIM OSTEOARTH-ANKLE 04/16/2006 Sprain of [...] as of this encounter (statuses as of 01/07/2024) Immunizations Name Administration Dates Next Due Pneumococcal [...] as of this encounter Progress Notes * Iza Do, Community Health Welder 2Nd Shift - 01/07/2024 9:36 AM EDT Telemedicine visit: No Community Health Welder 2Nd Shift (VAS[facility]) documentation: CHW placed 4th f/u call to patient and spoke with Mimi- daughter Daughter reported that patient is doing great. No concerns or questions. CHW encouraged daughter toreach out to with any questions or concerns that may come up in the future. Iza Do- Community Health Worker 1 Support Services/[facility] [employer] [facility] [email or web address] documented in this encounter Plan of Treatment Upcoming Encounters Date Type Department Care Team (Late st Contact Info) Description 02/05/2024 3:00 PM EDT Nurse Only Ancillary [address] [place] [address] [place], Nurse [address] [place] [address] 04/24/2024 3:30 PM EDT Office Visit Cardiology [address] [place] [address] Herberth Denny PA-C [address] [place] [address] Health Maintenance Due Date Last Done Comments DXA Scan 01/04/2023 01/05/2020, 01/04/2015 COVID-19 Vaccine ( season) 2023 Colonoscopy 04/19/2023 04/19/2018, 03/26, 09/29/2014, Additional history exists CKD HGB USE SMARTSET 31086 01/20/202401/19, 01/19/2023, 07/03/2022, Additional history exists Depression [...] Additional history exists CKD PHOS USE SMARTSET 73278 10/08/202409/23, 07/03/2022, 05/11/2021, Additional history exists DTaP,Tdap,and [...] this encounter Medical Devices Implanted Type Area Buttermilk Drier Operator Device Identifier Shelf Expiration Date Model / Serial / Lot Lens Intraoc 19.5 - [id number] - [id number] Implanted:Qty: 1 on 03/17/2021 by Migel Dejesus MD at OR [facility] Left: Eye BAUSCH [employer] LOMB 10/22/2025 [id number] / [id number] / [id number] Lens Intraoc 20.0 - [id number] - [id number] Implanted:Qty: 1 on 03/31/2021 by Migel Dejesus MD at OR [facility] Right: Eye BAUSCH [employer] LOMB 12/22/2025 [id number] / [id number] / [id number] documented as of this encounter Advance Directives Healthcare Agents on File Name Relationship Healthcare Agent Relationshi p Communication Mimi Vieyra Adult Child Health Care Repr esentative (appointed verbally by patient or by statute hierarchy) Yanci Adkins Adult Child Health Care Repr esentative (appointed verbally by patient or by statute hierarchy) Care Teams Punch Card Operator Relationship Specialty Start Date End Date Rosemary [place] MD [address] [place] [address] [place] [address] PCP - General Family Medicine 09/05/23 documented as of this encounter
--- OUTSIDE RECORDS SUMMARY | 2024-04-16 06:49 | External Medical Summary ---
Author Name Unknown Address Unknown Organization K01:[facility] - [address] [facility] [place] [address] Laboratory Report Ordering Provider Test Date Status ANTIONETTE PADILLA 01/10/2024 15:11:31 Final Observation Date Value Abnormality Reference (Units ) Status BUN 01/10/2024 15:11:31 25 Above high normal 6-20 (mg/dL) Final Creatinine 01/10/2024 15:11:31 0.9 0.5-1.0 (mg/dL) Final Glomerular filtration rate/1.73 sq M.predicted [Volume Rate/Area] in Serum, Plasma or Blood by Creatinine-based formula (CKD-EPI) 01/10/2024 15:11:31 62 >=60 (mL/min) Final eGFR is calculated based on the CKD-EPI 2020 equation. Sodium 01/10/2024 15:11:31 136 135-146 (m mol/L) Final Potassium 01/10/2024 15:11:31 4.6 3.5-5.1 (m mol/L) Final Cl 01/10/2024 15:11:31 99 98-107 (mm ol/L) Final CO2 01/10/2024 15:11:31 25 22-32 (mmo l/L) Final Anion gap 01/10/2024 15:11:31 12 7-15 (mmol /L) Final Glucose 01/10/2024 15:11:31 114 70-120 (mg /dL) Final Albumin 01/10/2024 15:11:31 4.3 3.8-5.0 (g /dL) Final AST (Aspartate aminotransferase) 01/10/2024 15:11:31 17 10-35 (U/L) Final Alk Phos 01/10/2024 15:11:31 122 35-130 (U/ L) Final Bilirubin, Total 01/10/2024 15:11:31 0.5 <=1 .2 (mg/dL) Final Calcium 01/10/2024 15:11:31 9.3 8.4-10.2 ( mg/dL) Final Protein 01/10/2024 15:11:31 7.1 6.0-8.3 (g /dL) Final ALT (Alanine aminotransferase) 01/10/2024 15:11:31 19 10-35 (U/L) Final Performing Location [facility] - [address] [facility] [address]
--- OUTSIDE RECORDS SUMMARY | 2024-04-16 06:49 | External Medical Summary | Summary of Care ---
Author Name Unknown Organization [facility] Address [address] [place] [address] Phone [phone] Care Team Providers Care Bridge Painter Helper Name Role Phone Rosemary Valentine MD Primary Care Provide r Reason for Visit * Reason Onset Date Comments Med Request 12/12/2023 Encounter Details Date Type Department Care Team (Late st Contact Info) Description 12/12/2023 Telephone Family Medicine [address] [phone] Rosemary Valentine MD [address] [place], [place] [address] [address] Med Request Allergies Active Allergy Reactions Criticality Noted Date Comments Codeine Nausea/vomiting 08/15/2011 Propoxyphene N-Acetaminophen Nausea/vomiting Low 08/24/2008 Iodinated Contrast Media Hives 02/06/2023 Iodine Hives 01/08/2001 Latex 09/26/2012 Contact dermititis Nitrofurantoin Rash 09/07/2014 Metformin 04/12/2021 documented as of this encounter (statuses as of 12/31/2023) Medications Medication Sig Dispensed Refills Start Date End Date Status ASPIRIN 81 MG PO TABSIndications: heart Take 1 Tablet by mouth in the morning. Active Iron-Vitamin C 65-125 MG Oral Tablet Take 1 Tablet by mouth in the morning. 90 Tab 3 6 Active Polyethylene Glycol 3350 17 GM/SCOOP Oral PowderIndication s:constipation Take 17 g by mouth at bedtime as needed for Constipation. Active Loratadine 10 MG Oral CapsuleIndicatio ns:allergies Take 1 Capsule by mouth in the morning. Active Cyanocobalamin 1000 MCG/ML Injection Solution (Cyanocobalamin) Inject as directed 1,000 mcg every 30 days . 1 mL 11 2 Active OneTouch Verio w/Device KitIndications:T ype 2 diabetes mellitus with stage 3a chronic kidney disease, without long-term current use of insulin (HCC) Use up to 4 times a day E11.9 1 Kit 2 Active hydroCHLOROthiaz xiomy 12.5 MG Oral Tablet (Hydrodiuril) TAKE ONE TABLET BY MOUTH IN THE MORNING 90 Tablet 3 3 Active Docusate Sodium 100 MG Oral Capsule (Colace) Take 2 Capsules by mouth at bedtime as needed for Constipation. Patient taking daily at bedtime Active Pantoprazole Sodium 20 MG Oral Tablet Delayed Release (Protonix)Indica tions:Gastroesop hageal reflux disease with esophagitis without hemorrhage Take 1 Tablet by mouth in the morning and 1 Tablet in the evening. 180 Tablet 1 3 Active Ezetimibe 10 MG Oral Tablet (Zetia)Indicatio ns:Dyslipidemia, goal LDL below 70 TAKE ONE TABLET BY MOUTH IN THE MORNING 90 Tablet 3 3 Active Additional Information Patient not taking.Reported on 12/17/2023 Albuterol Sulfate HFA 108 (90 Base) MCG/ACT Inhalation Aerosol SolutionIndicati ons:Intermittent asthma with reliever use up to twice per week without complication,SOB (shortness of breath) Inhale 2 Puffs by mouth every 6 hours as needed for Shortness of Breath or Wheezing. 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 18.2 mL 11 4 Active Irbesartan 150 MG Oral Tablet (Avapro) Take 1 Tablet by mouth in the morning. 90 Tablet 1 4 Active Trulicity 0.75 MG/0.5ML Subcutaneous Solution Pen-injector (Dulaglutide)Ind ications:Type 2 diabetes mellitus with stage 3a chronic [...] eyes 2 times a day. 3 Active Fluticasone-Umec lidin-Vilant 200-62.5-25 MCG/ACT Aerosol Powder Breath Activated (Trelegy Ellipta) Inhale 1 Puff by mouth daily. 60 Blister Dosing Unit 3 4 Active Acetaminophen ER 650 MG Oral Tablet Extended Release (Arthritis Pain Relief) Take 1 Tablet by mouth every 8 hours as needed. Active Ondansetron HCl 4 MG Oral Tablet (Zofran)Indicati ons:Nausea without vomiting take 1 tablet every 6 hours as needed for nausea. 30 Tablet 2 4 Active OneTouch Verio In Vitro Strip (Glucose Blood)Indication s:Type 2 diabetes mellitus with stage 3a chronic kidney disease, without long-term current use of insulin (HCC) Use once daily to check glucose E11.9 100 Strip 5 4 Active Rosuvastatin Calcium 10 MG Oral Tablet (Crestor)Indicat ions:Dyslipidemi a, goal LDL below 100 Take 1 Tablet by mouth in the morning. 90 Tablet 3 4 Active Additional Information Patient not taking.Reported on 12/10/2023 NATURAL SUPPLEMENT Take 1-2 Tablets by mouth at bedtime as needed for Sleep. Relaxium Active ALPRAZolam 0.5 MG Oral Tablet (xaNAX)Indicatio ns:Anxiety take 1 tablet in the morning and evening if needed for anxiety 60 Tablet 4 Active Apixaban 5 MG Oral Tablet (Eliquis) Take 1 Tablet by mouth in the morning and 1 Tablet before bedtime. Active OneTouch UltraSoft LancetsIndicatio ns:Type 2 diabetes mellitus with stage 3a chronic kidney disease, without long-term current use of insulin (HCC) Use once daily to check glucose E11.9 100 Each 5 3 12/17/19 24 Discontinued(Ref ill) Acetaminophen ER 650 MG Oral Tablet Extended Release Take 1 Tablet by mouth every 8 hours as needed. 12/17/19 24 Discontinued Levothyroxine Sodium 150 MCG Oral Tablet (Levoxyl) Take 1 Tablet by mouth daily first thing in the morning. (at least 30 min prior to breakfast or other meds) 90 Tablet 1 4 12/17/19 24 Discontinued(Ref ill) Metoprolol Tartrate 50 MG Oral Tablet (Lopressor) take 1 and 1/2 tablets in the morning and 1 tablet in the evening. 225 Tablet 3 4 12/17/19 24 Discontinued Cephalexin 500 MG Oral Capsule (Keflex)Indicati ons:Suspected urinary tract infection Take 1 Capsule by mouth in the morning and 1 Capsule at noon and 1 Capsule in the evening and 1 Capsule before bedtime. Do all this for 7 days. 28 Capsule 4 12/12/19 24 Discontinued(Pat ient preference/disco ntinuation) Anoro Ellipta 62.5-25 MCG/ACT Inhalation Aerosol Powder Breath Activated (umeclidinium-vi lanterol)Indicat ions:Moderate persistent asthma without complication Inhale 1 Puff by mouth in the morning. 30 Each 5 4 12/12/19 24 Discontinued Hospital, Clinic, or Other Facility Administered Medication Ordered Dose Route Frequency Start Date End Date Status vitamin b-12 (Cyanocobalamin) inj 1,000 mcgIndications:Vitamin B12 deficiency 1000 mcg IM [id number] 02/06/2023 01/08/2024 Active documented as of this encounter (statuses as of 12/31/2023) Active Problems Problem Noted Date Diagnosed Date [...] as of this encounter (statuses as of 12/31/2023) Resolved Problems Problem Noted Date Diagnosed Date [...] Taxonomy. Impaired fasting glucose 06/23/200607/2011 LOC PRIM [id number] 04/16/200609/24 LOC PRIM OSTEOARTH-ANKLE 04/16/2006 Sprain of [...] as of this encounter (statuses as of 12/31/2023) Immunizations Name Administration Dates Next Due Pneumococcal [...] Influenza, Split, I IV3, With Preserve, Inj 04/23/2014,04/21/2013,03/25/2012,10/06/2010,03/25/2010,03/25/2009,04/06/20 08,04/13/2003,04/14/2002,05/20/2001 04/13/2004 Seasonal Influenza, Trivalen t, Adjuvanted, [...] encounter Miscellaneous Notes * Telephone Encounter - Greta Aden OSA - 12/31/2023 2:34 PM EDT error * Telephone Encounter - Yasmin Raymundo RN - 12/12/2023 2:10 PM EDT Daughter notified, they will keep appt on Sunday * Telephone Encounter - Ann Ballesteros MD - 12/12/2023 1:48 PM EDT Covering for Dr Valentine. She should NOT need Anoro so long as she is taking Trelegy every day and feels she is breathing well. * Telephone Encounter - Rakel Carroll OSA - 12/12/2023 12:34 PM EDT Patient daughter is calling to see if patient needs to continue Anoro 62.5mcg/25mcg inhaler that was provided while inpatient. Patient is completely out of medication and is unsure if its something that should be refilled. documented in this encounter Plan of Treatment Upcoming Encounters Date Type Department Care Team (Late st Contact Info) Description 02/01/2024 3:00 PM EDT Nurse Only Ancillary [address] [place] [address] [place], Nurse [address] [place] [address] 04/24/2024 3:30 PM EDT Office Visit Cardiology [address] [place] [address] Herberth Denny PA-C [address] [place] [address] Health Maintenance Due Date Last Done Comments DXA Scan 01/04/2023 01/05/2020, 01/04/2015 COVID-19 Vaccine ( season) 2023 Colonoscopy 04/19/2023 04/19/2018, 03/26, 09/29/2014, Additional history exists CKD HGB USE SMARTSET 17393 01/20/202401/19, 01/19/2023, 07/03/2022, Additional history exists Depression [...] Additional history exists CKD PHOS USE SMARTSET 80424 10/08/202409/23, 07/03/2022, 05/11/2021, Additional history exists DTaP,Tdap,and [...] encounter Medical Devices Implanted Type Area [facility] Device Identifier Shelf Expiration Date Model / Serial / Lot Lens Intraoc 19.5 - [id number] - [id number] Implanted:Qty: 1 on 03/17/2021 by Migel Dejesus MD at OR [facility] Left: Eye [employer]OMB 10/22/2025 [id number] / [id number] / [id number] Lens Intraoc 20.0 - [id number] - [id number] Implanted:Qty: 1 on 03/31/2021 by Migel Dejesus MD at OR [facility] Right: Eye [employer]CH [employer] LOMB 12/22/2025 [id number] / [id number] / [id number] documented as of this encounter Visit Diagnoses Diagnosis Moderate persistent asthma without complication- Primary Unspecified asthma documented in this encounter Advance Directives Healthcare Agents on File Name Relationship Healthcare Agent Relationshi p Communication Mimi Jarrell Adult Child Health Care Repr esentative (appointed verbally by patient or by statute hierarchy) Yanci Adkins Adult Child Health Care Repr esentative (appointed verbally by patient or by statute hierarchy) Care Teams Bridge Painter Helper Relationship Specialty Start Date End Date Rosemary Valentine MD [address] [place] [address] [place] [address] PCP - General Family Medicine 09/05/23 documented as of this encounter
--- OUTSIDE RECORDS SUMMARY | 2024-04-16 06:49 | External Medical Summary | Summary of Care ---
Author Name Unknown Organization [facility] Address [address] [place] [address] Phone [phone] Care Team Providers Care Seed Cleaning Manager Name Role Phone Rosemary Valentine MD Primary Care Provide r Reason for Visit * Reason Comments Outpatient Testing Encounter Details Date Type Department Care Team (Late st Contact Info) Description 01/10/2024 3:10 PM EDT Laboratory Laboratory [address] [place] [phone] [place] [address] Elevated liver enzymes Allergies Active Allergy Reactions Criticality Noted Date Comments Codeine Nausea/vomiting 08/15/2011 Propoxyphene N-Acetaminophen Nausea/vomiting Low 08/24/2008 Iodinated Contrast Media Hives 02/06/2023 Iodine Hives 01/08/2001 Latex 09/26/2012 Contact dermititis Nitrofurantoin Rash 09/07/2014 Metformin 04/12/2021 documented as of this encounter (statuses as of 01/10/2024) Medications Medication Sig Dispensed Refills Start Date [...] current use of insulin ([facility]) Inject 0.75 mg under the [...] meds) 90 Tablet 1 12/17/2023 Active Nystatin 059076 UNIT/ML Mouth/Throat SuspensionIndication s:Thrush Swish and swallow [...] the morning. 90 Each 3 01/01/2024 Active documented as of this encounter (statuses as of 01/10/2024) Active Problems Problem Noted Date Diagnosed Date [...] as of this encounter (statuses as of 01/10/2024) Resolved Problems Problem Noted Date Diagnosed Date [...] Taxonomy. Impaired fasting glucose 06/23/200607/2011 LOC PRIM [id number] 04/16/200609/24 LOC PRIM OSTEOARTH-ANKLE 04/16/2006 Sprain of [...] as of this encounter (statuses as of 01/10/2024) Immunizations Name Administration Dates Next Due Pneumococcal [...] No 07/30/2023 Does the household have [facility]? (Household - for [...] 02/05/2024 3:00 PM EDT Nurse Only Ancillary [address] [place] [address] Kateryna Nurse [address] [place] [address] 02/11/2024 3:00 PM EDT Nurse Only Ancillary [address] [place] [address] Nurse Samantha [address] [place] [address] 03/14/2024 3:00 PM EDT Nurse Only Ancillary [address] [place] [address] Samantha Nurse [address] [place] [address] 04/24/2024 3:30 PM EDT Office Visit Cardiology [address] [place] [address] Herberth Denny PA-C [address] [place] [address] Pending Results Name Type Priority Associated Diagnoses Date /Time COMPREHENSIVE METABOLIC PANEL Lab Routine Elevated liver enzymes 01/10/2024 3:11 PM EDT Health Maintenance Due Date Last Done Comments DXA Scan 01/04/2023 01/05/2020, 01/04/2015 COVID-19 Vaccine ( season) 2023 Colonoscopy 04/19/2023 04/19/2018, 03/26, 09/29/2014, Additional history exists CKD HGB USE SMARTSET 15163 01/20/202401/19, 01/19/2023, 07/03/2022, Additional history exists Depression [...] Additional history exists CKD PHOS USE SMARTSET 61366 10/08/202409/23, 07/03/2022, 05/11/2021, Additional history exists DTaP,Tdap,and [...] this encounter Medical Devices Implanted Type Area Head Banquet Waitress Device Identifier Shelf Expiration Date Model / Serial / Lot Lens Intraoc 19.5 - [id number] - [id number] Implanted:Qty: 1 on 03/17/2021 by Migel Dejesus MD at OR [facility] Left: Eye [employer]CH [employer] LOMB 10/22/2025 [id number] / [id number] / [id number] Lens Intraoc 20.0 - [id number] - [id number] Implanted:Qty: 1 on 03/31/2021 by Migel Dejesus MD at OR [facility] Right: Eye [employer]CH [employer] LOMB 12/22/2025 [id number] / [id number] / [id number] documented as of this encounter Visit Diagnoses Diagnosis Elevated liver enzymes Nonspecific elevation of levels of transaminase or lactic acid dehydrogenase (LDH) documented in this encounter Advance Directives Healthcare Agents on File Name Relationship Healthcare Agent Relationshi p Communication Mimi Vieyra Adult Child Health Care Repr esentative (appointed verbally by patient or by statute hierarchy) Yanci Adkins Adult Child Health Care Repr esentative (appointed verbally by patient or by statute hierarchy) Care Teams Seed Cleaning Manager Relationship Specialty Start Date End Date Rosemary Valentine MD [address] [place] [address] [place] [phone] PCP - General Family Medicine 09/05/23 documented as of this encounter
--- OUTSIDE RECORDS SUMMARY | 2024-04-16 06:49 | External Medical Summary | Summary of Care ---
Author Name Unknown Organization [facility] Address [address] [place] [address] Phone [phone] Care Team Providers Care Munitions Factory Worker Name Role Phone Rosemary Valentine MD Primary Care Provide r Reason for Visit * Reason Onset Date Comments Medication Problem 12/31/2023 Encounter Details Date Type Department Care Team (Late st Contact Info) Description 12/31/2023 Telephone Family Medicine [address] [phone] Rosemary Valentine MD [address] [place], [place] [address] [address] Medication Problem Allergies Active Allergy Reactions Criticality Noted Date Comments Codeine Nausea/vomiting 08/15/2011 Propoxyphene N-Acetaminophen Nausea/vomiting Low 08/24/2008 Iodinated Contrast Media Hives 02/06/2023 Iodine Hives 01/08/2001 Latex 09/26/2012 Contact dermititis Nitrofurantoin Rash 09/07/2014 Metformin 04/12/2021 documented as of this encounter (statuses as of 01/02/2024) Medications Medication Sig Dispensed Refills Start Date [...] long-term current use of insulin ([facility]) Inject 0.75 mg under the skin [...] long-term current use of insulin ([facility]) Use once daily to check glucose [...] meds) 90 Tablet 1 4 Active Nystatin 777923 UNIT/ML Mouth/Throat SuspensionIndicatio ns:Thrush Swish and swallow [...] 1,000 mcgIndications:Vitamin B12 deficiency 1000 mcg IM [id number] 02/06/2023 01/08/2024 Active documented as of this encounter (statuses as of 01/02/2024) Active Problems Problem Noted Date Diagnosed Date [...] as of this encounter (statuses as of 01/02/2024) Resolved Problems Problem Noted Date Diagnosed Date [...] Taxonomy. Impaired fasting glucose 06/23/200607/2011 LOC PRIM [id number] 04/16/200609/24 LOC PRIM OSTEOARTH-ANKLE 04/16/2006 Sprain of [...] as of this encounter (statuses as of 01/02/2024) Immunizations Name Administration Dates Next Due Pneumococcal [...] No 07/30/2023 Does the household have a [employer] source of income? (Household - for ages [...] calling her insurance no longer covers the [facility] Ellipta and she is requesting something different to be sent in that is covered. [facility] [place]. Please advise. documented in this encounter Plan of Treatment Upcoming Encounters Date Type Department Care Team (Late st Contact Info) Description 02/01/2024 3:00 PM EDT Nurse Only Ancillary [address] [place] [address] [place], Nurse [address] [place] [address] 04/24/2024 3:30 PM EDT Office Visit Cardiology [address] [place] [address] Herberth Denny PA-C [address] [place] [address] Health Maintenance Due Date Last Done Comments DXA Scan 01/04/2023 01/05/2020, 01/04/2015 COVID-19 Vaccine ( season) 2023 Colonoscopy 04/19/2023 04/19/2018, 03/26, 09/29/2014, Additional history exists CKD HGB USE SMARTSET 06031 01/20/202401/19, 01/19/2023, 07/03/2022, Additional history exists Depression [...] Additional history exists CKD PHOS USE SMARTSET 54129 10/08/202409/23, 07/03/2022, 05/11/2021, Additional history exists DTaP,Tdap,and [...] this encounter Medical Devices Implanted Type Area Rn Gastroenterology Device Identifier Shelf Expiration Date Model / Serial / Lot Lens Intraoc 19.5 - [id number] - [id number] Implanted:Qty: 1 on 03/17/2021 by Migel Dejesus MD at OR [facility] Left: Eye BAUSCH [employer] LOMB 10/22/2025 [id number] / [id number] / [id number] Lens Intraoc 20.0 - [id number] - [id number] Implanted:Qty: 1 on 03/31/2021 by Migel Dejesus MD at OR [facility] Right: Eye BAUSCH [employer] LOMB 12/22/2025 [id number] / [id number] / [id number] documented as of this encounter Advance Directives Healthcare Agents on File Name Relationship Healthcare Agent Relationshi p Communication Mimi Vieyra Adult Child Health Care Repr esentative (appointed verbally by patient or by statute hierarchy) Yanci Adkins Adult Child Health Care Repr esentative (appointed verbally by patient or by statute hierarchy) Care Teams Munitions Factory Worker Relationship Specialty Start Date End Date Rosemary Valentine MD [address] [place] [address] [place] [address] PCP - General Family Medicine 09/05/23 documented as of this encounter
--- OUTSIDE RECORDS SUMMARY | 2024-04-16 06:49 | External Medical Summary | Summary of Care ---
Author Name Unknown Organization [facility] Address [address] [place] [address] Phone [phone] Care Team Providers Care Director Of Training Name Role Phone Rosemary Valentine MD Primary Care Provide r Encounter Details Date Type Department Care Team (Late st Contact Info) Description 12/31/2023 10:30 AM EDT Scheduled Telephone Care Coordination and Integration [address] [place], [place] [id number] Iza Do Community Health Editor In Chief [address] [place] [address] Allergies Active Allergy Reactions Criticality Noted Date [...] of insulin ([facility]) Inject 0.75 mg under the skin once a week. (on Mondays) 6 mL 1 09/25/2023 Active Olopatadine HCl 0.1 % Ophthalmic Solution (Pataday) Instill 1 Drop into both eyes in the morning and 1 Drop before bedtime. Active Loteprednol Etabonate 0.5 % Ophthalmic Suspension (Lotemax) Instill 1 Drop into both eyes 2 times a day. 06/20/2023 Active Fluticasone-Umeclidi n-Vilant 200-62.5-25 MCG/ACT Aerosol Powder Breath Activated (Trelegy [...] Relaxium Active ALPRAZolam 0.5 MG Oral Tablet (xaNAX)Indications:A nxiety take 1 tablet in the morning and evening if needed for anxiety 60 Tablet 11/29/2023 Active Apixaban 5 MG Oral Tablet (Eliquis) Take 1 Tablet by mouth in the morning and 1 Tablet before bedtime. Active Metoprolol Succinate ER 25 MG Oral Tablet Extended Release 24 Hour (toPROL XL)Indications:Parox ysmal atrial fibrillation (HCC) Take 3 Tablets by mouth in the morning and 3 Tablets before bedtime. 12/07/2023 Active Levothyroxine Sodium 150 MCG Oral Tablet (Levoxyl)Indications :Acquired hypothyroidism Take 1 Tablet by mouth daily first thing in the morning. (at least 30 min prior to breakfast or other meds) 90 Tablet 1 12/17/2023 Active Nystatin 551095 UNIT/ML Mouth/Throat SuspensionIndication s:Thrush Swish and swallow 5 mL in the morning and 5 mL at noon and 5 mL in the evening and 5 mL before bedtime. For thrush.. 240 mL 12/17/2023 Active Diclofenac Sodium 1 % External Gel (Voltaren)Indication s:Generalized osteoarthritis of multiple sites Apply topically to affected area 4 times a day as needed (joint pain). Apply to affected joint 350 g 12/17/2023 Active OneTouch UltraSoft LancetsIndications:T ype 2 diabetes mellitus with stage 3a chronic kidney disease, without long-term current use of insulin (HCC) Use once daily to check glucose E11.9 100 Each 12/17/2023 Active Hospital, Clinic, or Other Facility Administered Medication Ordered Dose Route Frequency Start Date End Date Status vitamin b-12 (Cyanocobalamin) inj 1,000 mcgIndications:Vitamin B12 deficiency 1000 mcg IM [id number] 02/06/2023 01/08/2024 Active documented as of this [...] Taxonomy. Impaired fasting glucose 06/23/200607/2011 LOC PRIM [id number] 04/16/200609/24 LOC PRIM OSTEOARTH-ANKLE 04/16/2006 Sprain of [...] No 07/30/2023 Does the household have a [facility] source of income? (Household - [...] Progress Notes * Iza Do, Community Health Editor In Chief - 12/31/2023 11:13 AM EDT Telemedicine visit: No Community Health Editor In Chief (VASILE) documentation: CHW placed PC to daughter Mimi due to not reaching patient Daughter reported that patient appears to be doing well. No concerning signs or symptoms of anything. Daughter did report that patient fel getting out of the shower last Wed (12/25) bending over to picker box operator a shampoo bottle. No injury, daughter did contact the PCP office just to make sure she didn't need to go to the ER to be checked. They are just keeping a better watch on patient and patient is using her walker however is stubborn. CHW confirmed CM contact information and encouraged to reach outto CM with any concerns or questions. Iza Do- Community Health Worker 1 Support Services/[facility] Research Plan [email or web address] documented in this encounter Plan of Treatment Upcoming Encounters Date Type Department Care Team (Late st Contact Info) Description 02/01/2024 3:00 PM EDT Nurse Only Ancillary [address] [place] [address] [place], Nurse [address] [place] [address] 04/24/2024 3:30 PM EDT Office Visit Cardiology [address] [place] [address] Herberth Denny PA-C [address] [place] [address] Health Maintenance Due Date Last Done Comments DXA Scan 01/04/2023 01/05/2020, 01/04/2015 COVID-19 Vaccine ( season) 2023 Colonoscopy 04/19/2023 04/19/2018, 03/26, 09/29/2014, Additional history exists CKD HGB USE SMARTSET 38683 01/20/202401/19, 01/19/2023, 07/03/2022, Additional history exists Depression [...] Additional history exists CKD PHOS USE SMARTSET 56624 10/08/202409/23, 07/03/2022, 05/11/2021, Additional history exists DTaP,Tdap,and [...] this encounter Medical Devices Implanted Type Area Day Spa Manager Device Identifier Shelf Expiration Date Model / Serial / Lot Lens Intraoc 19.5 - [id number] - [id number] Implanted:Qty: 1 on 03/17/2021 by Migel Dejesus MD at OR [facility] Left: Eye BAUSCH & LOMB 10/22/2025 [id number] / [id number] / [id number] Lens Intraoc 20.0 - [id number] - [id number] Implanted:Qty: 1 on 03/31/2021 by Migel Dejesus MD at OR [facility] Right: Eye BAUSCH & LOMB 12/22/2025 [id number] / [id number] / [id number] documented as of this encounter Advance Directives Healthcare Agents on File Name Relationship Healthcare Agent Relationshi p Communication Mimi Annbrittany Adult Child Health Care Repr esentative (appointed verbally by patient or by statute hierarchy) Yanci Adkins Adult Child Health Care Repr esentative (appointed verbally by patient or by statute hierarchy) Care Teams Director Of Training Relationship Specialty Start Date End Date Rosemary Valentine MD [address] [place] [address] [place] [address] PCP - General Family Medicine 09/05/23 documented as of this encounter
--- OUTSIDE RECORDS SUMMARY | 2024-04-16 06:49 | External Medical Summary | Summary of Care ---
Author Name Unknown Organization [facility] Address [address] [place] [address] Phone [phone] Care Team Providers Care Principal Bioinformatics Specialist Name Role Phone Rosemary Valentine MD Primary Care Provide r Encounter Details Date Type Department Care Team (Late st Contact Info) Description 01/10/2024 2:20 PM EDT Nurse Only Ancillary [address] [place] [address] [place], Nurse [address] [place] [address] Allergies Active Allergy Reactions Criticality Noted Date [...] use of insulin ([facility]) Inject 0.75 mg under [...] use of insulin ([facility]) Use once daily to [...] meds) 90 Tablet 1 12/17/2023 Active Nystatin 674105 UNIT/ML Mouth/Throat SuspensionIndication s:Thrush Swish and swallow [...] 1,000 mcgIndications:Vitamin B12 deficiency 1000 mcg IM [id number] 01/10/2024 12/11/2024 Active documented as of this [...] Taxonomy. Impaired fasting glucose 06/23/200607/2011 LOC PRIM [id number] 04/16/200609/24 LOC PRIM OSTEOARTH-ANKLE 04/16/2006 Sprain of [...] 01/17/2024 3:00 PM EDT Office Visit Orthopaedics [address] [phone] Otf Grier MD [address] [place] [address] 02/05/2024 3:00 PM EDT Nurse Only Ancillary [address] [place] [address] Kater[place], Nurse [address] [place] [address] 02/11/2024 3:00 PM EDT Nurse Only Ancillary [address] [place] [address] Samantha Nurse [address] [place] [address] 03/14/2024 3:00 PM EDT Nurse Only Ancillary [address] [place] [address] Samantha, Nurse [address] [place] [address] 04/24/2024 3:30 PM EDT Office Visit Cardiology [address] [place] [address] Herberth Denny PA-C [address] [place] [address] Health Maintenance Due Date Last Done Comments DXA Scan 01/04/2023 01/05/2020, 01/04/2015 COVID-19 Vaccine ( season) 2023 Colonoscopy 04/19/2023 04/19/2018, 03/26, 09/29/2014, Additional history exists CKD HGB USE SMARTSET 83746 01/20/202401/19, 01/19/2023, 07/03/2022, Additional history exists Depression [...] Additional history exists CKD PHOS USE SMARTSET 13194 10/08/202409/23, 07/03/2022, 05/11/2021, Additional history exists DTaP,Tdap,and [...] this encounter Medical Devices Implanted Type Area Barkeeper Device Identifier Shelf Expiration Date Model / Serial / Lot Lens Intraoc 19.5 - [id number] - [id number] Implanted:Qty: 1 on 03/17/2021 by Migel Dejesus MD at [facility] Left: Eye BAUSCH & LOMB 10/22/2025 [id number] / [id number] / [id number] Lens Intraoc 20.0 - [id number] - [id number] Implanted:Qty: 1 on 03/31/2021 by Migel Dejesus MD at OR [facility] Right: Eye BAUSCH & LOMB 12/22/2025 [id number] / [id number] / [id number] documented as of this encounter Administered Medications Active Administered Medications - up to 3 most recent administrations Medication Order MAR Action Action Date Dose Rate Site vitamin b-12 (Cyanocobalamin) inj 1,000 mcg 1,000 mcg, Intramuscular, [id number], First dose on Ginger 01/10/24 at 1600, Last dose on Ginger 11/13/24 at 1600, For 12 doses Given 01/10/2024 3:32 PM EDT 1,000 mcg Deltoid Left Upper documented in this encounter Advance Directives Healthcare Agents on File Name Relationship Healthcare Agent Relationshi p Communication Mimi Jarrell Adult Child Health Care Repr esentative (appointed verbally by patient or by statute hierarchy) Yanci Adkins Adult Child Health Care Repr esentative (appointed verbally by patient or by statute hierarchy) Care Teams Principal Bioinformatics Specialist Relationship Specialty Start Date End Date Rosemary Valentine MD [address] [place] [address] [place] [phone] PCP - General Family Medicine 09/05/23 documented as of this encounter
--- OUTSIDE RECORDS SUMMARY | 2024-04-16 06:49 | External Medical Summary | Summary of Care ---
Author Name Unknown Organization [facility] Address [address] [place] [address] Phone [phone] Care Team Providers Care Workers' Compensation Commissioner Name Role Phone Randy Valentine MD Primary Care Provide r Reason for Visit * Reason Comments eRx-Medication Refill Encounter Details Date Type Department Care Team (Late st Contact Info) Description 12/30/2023 Refill Family Medicine [address] [phone] Randy Valentine MD [address] [place] [phone] Anxiety; Paroxysmal atrial fibrillation (HCC) Allergies Active Allergy Reactions Criticality Noted Date Comments Codeine Nausea/vomiting 08/15/2011 Propoxyphene N-Acetaminophen Nausea/vomiting Low 08/24/2008 Iodinated Contrast Media Hives 02/06/2023 Iodine Hives 01/08/2001 Latex 09/26/2012 Contact dermititis Nitrofurantoin Rash 09/07/2014 Metformin 04/12/2021 documented as of this encounter (statuses as of 01/01/2024) Medications Medication Sig Dispensed Refills Start Date [...] eyes 2 times a day. 3 Active Fluticasone-Umeclid in-Vilant 200-62.5-25 MCG/ACT Aerosol Powder [...] meds) 90 Tablet 1 4 Active Nystatin 831266 UNIT/ML Mouth/Throat SuspensionIndicatio ns:Thrush Swish and swallow [...] joint 350 g 4 Active OneTouch UltraSoft LancetsIndications: Type 2 [...] TIMES A DAY 180 Tablet 4 Active ALPRAZolam 0.5 MG Oral Tablet (xaNAX)Indications: Anxiety take 1 tablet in the morning and evening if needed for anxiety 60 Tablet 4 01/01/20 24 Discontinued Apixaban 5 MG Oral Tablet (Eliquis) Take 1 Tablet by mouth in the morning and 1 Tablet before bedtime. 01/01/20 24 Discontinued Metoprolol Succinate ER 25 MG Oral Tablet Extended Release 24 Hour (toPROL XL)Indications:Paro xysmal atrial fibrillation (HCC) Take 3 Tablets by mouth in the morning and 3 Tablets before bedtime. 4 01/01/20 24 Discontinued Hospital, Clinic, or Other Facility Administered Medication Ordered Dose Route Frequency Start Date End Date Status vitamin b-12 (Cyanocobalamin) inj 1,000 mcgIndications:Vitamin B12 deficiency 1000 mcg IM [id number] 02/06/2023 01/08/2024 Active documented as of this encounter (statuses as of 01/01/2024) Active Problems Problem Noted Date Diagnosed Date [...] as of this encounter (statuses as of 01/01/2024) Resolved Problems Problem Noted Date Diagnosed Date [...] Taxonomy. Impaired fasting glucose 06/23/200607/2011 LOC PRIM [id number] 04/16/200609/24 LOC PRIM OSTEOARTH-ANKLE 04/16/2006 Sprain of [...] as of this encounter (statuses as of 01/01/2024) Immunizations Name Administration Dates Next Due Pneumococcal [...] Telephone Encounter - Randy Valentine MD - 01/01/2024 10:12 AM EDT Signed Prescriptions: Disp Refills ALPRAZolam 0.5 MG Oral Tablet (xaNAX) 60 Tab*0 Sig: take 1 tablet in the morning and evening if needed for anxiety Authorizing Provider: RANDY VALENTINE Eliquis 5 MG Oral Tablet (Apixaban) 60 Tab*5 Sig: TAKE ONE TABLET BY MOUTH TWICE DAILY Authorizing Provider: RANDY VALENTINE Metoprolol Succinate ER 25 MG Oral Tablet *180 Ta*5 Sig: TAKE THREE TABLETS BY MOUTH TWO TIMES A DAY Authorizing Provider: RANDY VALENTINE * Telephone Encounter - Dory Michel [facility] - 01/01/2024 8:34 AM EDTPending Prescriptions: Disp Refills ALPRAZolam 0.5 MG Oral Tablet (xaNAX) 60 Tab*0 Sig: take 1 tablet in the morning and evening if needed for anxiety Eliquis 5 MG Oral Tablet (Apixaban) 60 Tab*5 Sig: TAKE ONE TABLET BY MOUTH TWICE DAILY Metoprolol Succinate ER 25 MG Oral Tablet *180 Ta*5 Sig: TAKE THREE TABLETS BY MOUTH TWO TIMES A DAY ---- * Telephone Encounter - Dory Michel [facility] - 01/01/2024 8:33 AM EDT I have reviewed the patients controlled substance dispensing history in the Prescription Drug Monitoring Program in compliance with the [facility] regulations before prescribing a controlled substance. PDMP checked on 01/01/2024. Pending Prescriptions: Disp Refills ALPRAZolam 0.5 MG Oral Tablet (xaNAX) [Ph*60 Tab*0 Sig: take 1 tablet in the morning and evening if needed for anxiety Eliquis 5 MG Oral Tablet (Apixaban) [Phar*60 Tab*5 Sig: TAKE ONE TABLET BY MOUTH TWICE DAILY Metoprolol Succinate ER 25 MG Oral Tablet*180 Ta*5 Sig: TAKE THREE TABLETS BY MOUTH TWO TIMES A DAY Last Visit: 12/17/2023 (in office), Visit date not found (telemedicine) Next Visit: Visit date not found Date medication was last filled: 11/29/23 Date medication is due for refill: 12/28/23 Pharmacy: [id number] [address] [facility] Is this request for a controlled substance? Yes and Urine Drug Screen Not completed Toxicology results: No results found. However, due to the size of the patient record, not all encounters were searched.Please check Results Review for a complete set of results. Please approve if appropriate. Thank You, Dory Michel [facility] Clinical Pharmacist Centralized Clinical Pharmacy Services ([facility]) [phone] 01/01/2024, 8:33 AM * Telephone Encounter - Dory Michel [facility] - 01/01/2024 8:27 AM EDT Images from the original note were not included. Per 12/07/23 [facility] discharge summary: Please approve pended orders if agreeable Thank You, Dory Michel [facility] Clinical Pharmacist Centralized Clinical Pharmacy Services ([facility]) [phone] 01/01/2024, 8:32 AM documented in this encounter Plan of Treatment Upcoming Encounters Date Type Department Care Team (Late st Contact Info) Description 02/01/2024 3:00 PM EDT Nurse Only Ancillary [address] [place] [address] [place], Nurse [address] [place] [address] 04/24/2024 3:30 PM EDT Office Visit Cardiology [address] [place] [address] Herberth Denny PA-Nithin [address] [place] [address] Health Maintenance Due Date Last Done Comments DXA Scan 01/04/2023 01/05/2020, 01/04/2015 COVID-19 Vaccine ( season) 2023 Colonoscopy 04/19/2023 04/19/2018, 03/26, 09/29/2014, Additional history exists CKD HGB USE SMARTSET 26748 01/20/202401/19, 01/19/2023, 07/03/2022, Additional history exists Depression [...] Additional history exists CKD PHOS USE SMARTSET 15275 10/08/202409/23, 07/03/2022, 05/11/2021, Additional history exists DTaP,Tdap,and [...] this encounter Medical Devices Implanted Type Area Accounts Payable Representative Device Identifier Shelf Expiration Date Model / Serial / Lot Lens Intraoc 19.5 - [id number] - [id number] Implanted:Qty: 1 on 03/17/2021 by Migel Dejesus MD at OR [facility] Left: Eye BAUSCH & LOMB 10/22/2025 [id number] / [id number] / [id number] Lens Intraoc 20.0 - [id number] - [id number] Implanted:Qty: 1 on 03/31/2021 by Migel Dejesus MD at OR [facility] Right: Eye BAUSCH & LOMB 12/22/2025 [id number] / [id number] / [id number] documented as of this encounter Visit Diagnoses Diagnosis Anxiety Anxiety state, unspecified Paroxysmal atrial fibrillation (HCC) Atrial fibrillation documented in this encounter Advance Directives Healthcare Agents on File Name Relationship Healthcare Agent Relationshi p Communication Mimi Vieyra Adult Child Health Care Repr esentative (appointed verbally by patient or by statute hierarchy) Yanci Adkins Adult Child Health Care Repr esentative (appointed verbally by patient or by statute hierarchy) Care Teams Workers' Compensation Commissioner Relationship Specialty Start Date End Date Randy Valentine MD [address] [place] [address] [place] [phone] PCP - General Family Medicine 09/05/23 documented as of this encounter
--- OUTSIDE RECORDS SUMMARY | 2024-04-16 06:50 | External Medical Summary | Summary of Care ---
Author Name Unknown Organization [facility] Address [address] [place] [address] Phone [phone] Care Team Providers Care Database Marketing Manager Name Role Phone Rosemary Valnetine MD Primary Care Provide r Reason for Visit * Reason Onset Date Comments Med Request 12/12/2023 Encounter Details Date Type Department Care Team (Late st Contact Info) Description 12/12/2023 Telephone Family Medicine [address] [phone] Rosemary Valentine MD [address] [place], [place] [address] [address] Med Request Allergies Active Allergy Reactions Criticality Noted Date Comments Codeine Nausea/vomiting 08/15/2011 Propoxyphene N-Acetaminophen Nausea/vomiting Low 08/24/2008 Iodinated Contrast Media Hives 02/06/2023 Iodine Hives 01/08/2001 Latex 09/26/2012 Contact dermititis Nitrofurantoin Rash 09/07/2014 Metformin 04/12/2021 documented as of this encounter (statuses as of 12/12/2023) Medications Medication Sig Dispensed Refills Start Date [...] MORNING 90 Tablet 3 3 Active OneTouch UltraSoft LancetsIndicatio ns:Type 2 diabetes mellitus with stage 3a chronic kidney disease, without long-term current use of insulin ([facility]) Use once daily to check glucose E11.9 100 Each 5 3 Active Acetaminophen ER 650 MG Oral [...] the evening. 225 Tablet 3 4 Active Additional Information Patient taking differently: 75 mg Oral BID (.AM/PM), take 1 tablet in the morning and 1 tablet in the evening., Reported on 12/10/2023 Trulicity 0.75 MG/0.5ML Subcutaneous Solution Pen-injector (Dulaglutide)Ind [...] morning and 1 Tablet before bedtime. Active Cephalexin 500 MG Oral Capsule (Keflex)Indicati ons:Suspected [...] 1,000 mcgIndications:Vitamin B12 deficiency 1000 mcg IM [id number] 02/06/2023 01/08/2024 Active documented as of this encounter (statuses as of 12/12/2023) Active Problems Problem Noted Date Diagnosed Date [...] as of this encounter (statuses as of 12/12/2023) Resolved Problems Problem Noted Date Diagnosed Date [...] Taxonomy. Impaired fasting glucose 06/23/200607/2011 LOC PRIM [id number] 04/16/200609/24 LOC PRIM OSTEOARTH-ANKLE 04/16/2006 Sprain of [...] as of this encounter (statuses as of 12/12/2023) Immunizations Name Administration Dates Next Due Pneumococcal [...] encounter Miscellaneous Notes * Telephone Encounter - Dotts, Yasmin, RN - 12/12/2023 2:10 PM EDT Daughter [...] Care Team (Late st Contact Info) Description 12/17/2023 5:40 PM EDT Office Visit [address] [phone] Rosemary Valentine MD [address] [place] [address] [place] [address] 12/24/2023 11:20 AM EDT Office Visit [address] [place] [phone] Shanell Agarwal MD [address] [place] [address] [place] [address] 02/01/2024 3:00 PM EDT Nurse Only Ancillary [address] [place] [address] [place], Nurse Annual [address] [place] [address] 04/24/2024 3:30 PM EDT Office Visit Cardiology [address] [place] [address] Herberth Denny PA-C [address] [place] [address] Health Maintenance Due Date Last Done Comments DXA Scan 01/04/2023 01/05/2020, 01/04/2015 COVID-19 Vaccine ( season) 2023 Colonoscopy 04/19/2023 04/19/2018, 03/26, 09/29/2014, Additional history exists CKD HGB USE SMARTSET 25593 01/20/202401/19, 01/19/2023, 07/03/2022, Additional history exists Depression [...] Additional history exists CKD PHOS USE SMARTSET 98758 10/08/2024/11/2023, 07/03/2022, 05/11/2021, Additional history exists DTaP,Tdap,and Td [...] this encounter Medical Devices Implanted Type Area Customer Development Representative Device Identifier Shelf Expiration Date Model / Serial / Lot Lens Intraoc 19.5 - [id number] - [id number] Implanted:Qty: 1 on 03/17/2021 by Migel Dejesus MD at OR [facility] Left: Eye BAUSCH & LOMB 10/22/2025 [id number] / [id number] / [id number] Lens Intraoc 20.0 - [id number] - [id number] Implanted:Qty: 1 on 03/31/2021 by Migel Dejesus MD at OR [facility] Right: Eye BAUSCH & LOMB 12/22/2025 [id number] / [id number] / [id number] documented as of this encounter Visit Diagnoses [...] patient or by statute hierarchy) Care Teams Database Marketing Manager Relationship Specialty Start Date End Date Rosemary Valentine MD [address] [place] [address] [place] [address] PCP - General Family Medicine 09/05/23 documented as of this encounter
--- OUTSIDE RECORDS SUMMARY | 2024-04-16 06:50 | External Medical Summary | Summary of Care ---
Author Name Unknown Organization [facility] Address [address] [place] [address] Phone [phone] Care Team Providers Care Coal Hiker Name Role Phone Rosemary Valentine MD Primary Care Provide r Encounter Details Date Type Department Care Team (Late st Contact Info) Description 12/17/2023 Population Health External Data Unspecified Department Allergies Active Allergy Reactions Criticality Noted Date Comments Codeine Nausea/vomiting 08/15/2011 Propoxyphene N-Acetaminophen Nausea/vomiting Low 08/24/2008 Iodinated Contrast Media Hives 02/06/2023 Iodine Hives 01/08/2001 Latex 09/26/2012 Contact dermititis Nitrofurantoin Rash 09/07/2014 Metformin 04/12/2021 documented as of this encounter (statuses as of 12/18/2023) Medications Medication Sig Dispensed Refills Start Date [...] long-term current use of insulin ([facility]) Use up to 4 times a [...] long-term current use of insulin ([facility]) Inject 0.75 mg under the skin [...] Oral Tablet Extended Release 24 Hour (toPROL XL) Take 3 Tablets by mouth in the morning and 3 Tablets before bedtime. 12/07/2023 Active Levothyroxine Sodium 150 MCG Oral Tablet (Levoxyl) Take 1 Tablet by mouth daily first thing in the morning. (at least 30 min prior to breakfast or other meds) 90 Tablet 1 12/17/2023 Active Nystatin 560849 UNIT/ML Mouth/Throat Suspension Swish and swallow 5 mL in the morning and 5 mL at noon and 5 mL in the evening and 5 mL before bedtime. For thrush.. 240 mL 1 12/17/2023 Active Diclofenac Sodium 1 % External Gel (Voltaren) Apply topically to affected area 4 times a day as needed (joint pain). Apply to affected joint 350 g 12/17/2023 Active OneTouch UltraSoft LancetsIndications :Type 2 diabetes mellitus with stage 3a chronic kidney disease, without long-term current use of insulin (HCC) Use once daily to check glucose E11.9 100 Each 12/17/2023 Active Hospital, Clinic, or Other Facility Administered Medication Ordered Dose Route Frequency Start Date End Date Status vitamin b-12 (Cyanocobalamin) inj 1,000 mcgIndications:Vitamin B12 deficiency 1000 mcg IM [id number] 02/06/2023 01/08/2024 Active documented as of this encounter (statuses as of 12/18/2023) Active Problems Problem Noted Date Diagnosed Date [...] as of this encounter (statuses as of 12/18/2023) Resolved Problems Problem Noted Date Diagnosed Date [...] Taxonomy. Impaired fasting glucose 06/23/200607/2011 LOC PRIM [id number] 04/16/200609/24 LOC PRIM OSTEOARTH-ANKLE 04/16/2006 Sprain of [...] as of this encounter (statuses as of 12/18/2023) Immunizations Name Administration Dates Next Due Pneumococcal [...] Care Team (Late st Contact Info) Description 12/24/2023 11:20 AM EDT Office Visit Family Medicine [address] [place] [phone] Shanell Agarwal MD [address] [place] [address] [place] [address] 02/01/2024 3:00 PM EDT Nurse Only Ancillary [address] [place] [address] Kateryna, Nurse Annual [address] [place] [address] 04/24/2024 3:30 PM EDT Office Visit Cardiology [address] [place] [address] Herberth Denny PA-C [address] [place] [address] Health Maintenance Due Date Last Done Comments DXA Scan 01/04/2023 01/05/2020, 01/04/2015 COVID-19 Vaccine ( season) 2023 Colonoscopy 04/19/2023 04/19/2018, 03/26, 09/29/2014, Additional history exists CKD HGB USE SMARTSET 94158 01/20/202401/19, 01/19/2023, 07/03/2022, Additional history exists Depression [...] Additional history exists CKD PHOS USE SMARTSET 11167 10/08/202409/23, 07/03/2022, 05/11/2021, Additional history exists DTaP,Tdap,and [...] this encounter Medical Devices Implanted Type Area Washroom Cleaner Device Identifier Shelf Expiration Date Model / Serial / Lot Lens Intraoc 19.5 - [id number] - [id number] Implanted:Qty: 1 on 03/17/2021 by Migel Dejesus MD at OR [facility] Left: Eye [employer] 10/22/2025 [id number] / [id number] / [id number] Lens Intraoc 20.0 - [id number] - [id number] Implanted:Qty: 1 on 03/31/2021 by Migel Dejesus MD at OR [facility] Right: Eye [employer]OM[employer] 12/22/2025 [id number] / [id number] / [id number] documented as of this encounter Advance Directives Healthcare Agents on File Name Relationship Healthcare Agent Relationshi p Communication Mimi Vieyra Adult Child Health Care Repr esentative (appointed verbally by patient or by statute hierarchy) Yanci Adkins Adult Child Health Care Repr esentative (appointed verbally by patient or by statute hierarchy) Care Teams Coal Hiker Relationship Specialty Start Date End Date Rosemary Valentine MD [address] [place] [address] [place] [phone] PCP - General Family Medicine 09/05/23 documented as of this encounter
--- OUTSIDE RECORDS SUMMARY | 2024-04-16 06:50 | External Medical Summary | Summary of Care ---
Author Name Unknown Organization [facility] Address [address] [place] [address] Phone [phone] Care Team Providers Care American Sign Language Teacher Name Role Phone Rosemary Valentine MD Primary Care Provide r Reason for Visit * Reason Onset Date Comments Advice 09/26/2023 Encounter Details Date Type Department Care Team (Late st Contact Info) Description 09/26/2023 Telephone Family Medicine [address] [phone] Rosemary Valentine MD [address] [place] [address] [place] [address] Advice Allergies Active Allergy Reactions Criticality Noted Date Comments Codeine Nausea/vomiting 08/15/2011 Propoxyphene N-Acetaminophen Nausea/vomiting Low 08/24/2008 Iodinated Contrast Media Hives 02/06/2023 Iodine Hives 01/08/2001 Latex 09/26/2012 Contact dermititis Nitrofurantoin Rash 09/07/2014 Metformin 04/12/2021 documented as of this encounter (statuses as of 12/26/2023) Medications Medication Sig Dispensed Refills Start Date [...] without long-term current use of insulin ([facility]) Inject 0.75 mg under the [...] 60 Blister Dosing Unit 3 4 Active OneTouch Verio In Vitro Strip (Glucose Blood)Indication s:Type 2 diabetes mellitus with stage 3a chronic kidney disease, without long-term current use of insulin ([facility]) Use once daily to check glucose E11.9 100 Strip 5 3 10/29/19 24 Discontinued(Ref ill) OneTouch UltraSoft LancetsIndicatio ns:Type 2 diabetes mellitus with stage 3a chronic kidney disease, without long-term current use of insulin ([facility]) Use once daily to check glucose E11.9 100 Each 5 3 12/17/19 24 Discontinued(Ref ill) Rosuvastatin Calcium 10 MG Oral Tablet (Crestor)Indicat ions:Dyslipidemi a, goal LDL below 100 Take 1 Tablet by mouth in the morning. 90 Tablet 3 3 10/29/19 24 Discontinued(Ref ill) Acetaminophen ER 650 MG Oral Tablet Extended Release Take 1 Tablet by mouth every 8 hours as needed. 12/17/19 24 Discontinued Ondansetron HCl 4 MG Oral Tablet (Zofran)Indicati ons:Nausea without vomiting take 1 tablet every 6 hours as needed for nausea. 30 Tablet 2 4 10/29/19 24 Discontinued(Ref ill) Levothyroxine Sodium 150 MCG Oral Tablet (Levoxyl) [...] 225 Tablet 3 4 12/17/19 24 Discontinued predniSONE 10 MG Oral Tablet (Deltasone)Indic ations:Moderate persistent asthma with exacerbation,Acu te cough Take 5 tabs for 2 days, 4 tabs for 2 days, 3 tabs for 2 days, 2 tabs for 2 days 1 tab for 2 days 30 Tablet 4 10/16/19 24 Discontinued(End of Procedure) ALPRAZolam 0.5 MG Oral Tablet (xaNAX)Indicatio ns:Anxiety take 1 tablet in the morning and evening if needed for anxiety 60 Tablet 4 09/28/19 24 Discontinued(Ref ill) Hospital, Clinic, or Other Facility Administered Medication Ordered Dose Route Frequency Start Date End Date Status vitamin b-12 (Cyanocobalamin) inj 1,000 mcgIndications:Vitamin B12 deficiency 1000 mcg IM [id number] 02/06/2023 01/08/2024 Active documented as of this encounter (statuses as of 12/26/2023) Active Problems Problem Noted Date Diagnosed Date [...] as of this encounter (statuses as of 12/26/2023) Resolved Problems Problem Noted Date Diagnosed Date [...] Taxonomy. Impaired fasting glucose 06/23/200607/2011 LOC PRIM [id number] 04/16/200609/24 LOC PRIM OSTEOARTH-ANKLE 04/16/2006 Sprain of [...] as of this encounter (statuses as of 12/26/2023) Immunizations Name Administration Dates Next Due Pneumococcal [...] encounter Miscellaneous Notes * Telephone Encounter - Jenifer Luna LPN - 09/26/2023 2:24 PM EDT Hnena Pharmacist, calling from [facility]. Spoke to the patient. Wanted to clarify her inhalers and what the patient is on. Clarified. Verbalized understanding. She is going to send a message to the doctor and discuss combining the inhalers. * Telephone Encounter - Hyacinth Rojas OSA - 09/26/2023 2:18 PM EDT Reason for patient's call: med reconicilation inhalers Caller was transferred to [facility] at the nurse line. documented in this encounter Plan of Treatment Upcoming Encounters Date Type Department Care Team (Late st Contact Info) Description 02/01/2024 3:00 PM EDT Nurse Only Ancillary [address] [place] [address] [place], Nurse [address] [place] [address] 04/24/2024 3:30 PM EDT Office Visit Cardiology [address] [place] [address] Herberth Denny PA-Nithin [address] [place] [address] Health Maintenance Due Date Last Done Comments DXA Scan 01/04/2023 01/05/2020, 01/04/2015 COVID-19 Vaccine ( season) 2023 Colonoscopy 04/19/2023 04/19/2018, 03/26, 09/29/2014, Additional history exists CKD HGB USE SMARTSET 12904 01/20/202401/19, 01/19/2023, 07/03/2022, Additional history exists Depression [...] Additional history exists CKD PHOS USE SMARTSET 58749 10/08/202409/23, 07/03/2022, 05/11/2021, Additional history exists DTaP,Tdap,and [...] this encounter Medical Devices Implanted Type Area Cinder Pitman Device Identifier Shelf Expiration Date Model / Serial / Lot Lens Intraoc 19.5 - [id number] - [id number] Implanted:Qty: 1 on 03/17/2021 by Migel Dejesus MD at [facility] Left: Eye [employer] 10/22/2025 [id number] / [id number] / [id number] Lens Intraoc 20.0 - [id number] - [id number] Implanted:Qty: 1 on 03/31/2021 by Migel Dejesus MD at [facility] Right: Eye [employer]OM[employer] 12/22/2025 [id number] / [id number] / [id number] documented as of this encounter Advance Directives Healthcare Agents on File Name Relationship Healthcare Agent Relationshi p Communication Mimi Vieyra Adult Child Health Care Repr esentative (appointed verbally by patient or by statute hierarchy) Yanci Adkins Adult Child Health Care Repr esentative (appointed verbally by patient or by statute hierarchy) Care Teams American Sign Language Teacher Relationship Specialty Start Date End Date Rosemary Valentine MD [address] [place] [address] [place] [phone] PCP - General Family Medicine 09/05/23 documented as of this encounter
--- OUTSIDE RECORDS SUMMARY | 2024-04-16 06:50 | External Medical Summary | Summary of Care ---
Author Name Unknown Organization [facility] Address [address] [place] [address] Phone [phone] Care Team Providers Care Asset Management Lead Name Role Phone Rosemary Valentine MD Primary Care Provide r Reason for Visit * Reason Onset Date Comments Hospital Follow-Up Hospital Follow-Up 12/17/2023 Encounter Details Date Type Department Care Team (Latest Contact Info) Description 12/17/2023 5:40 PM EDT Office Visit Family Medicine [address] [phone] Rosemary Valentine MD [address] [place] [id number] Hospital discharge follow-up*; Elevated liver enzymes; Paroxysmal atrial fibrillation (HCC); Type 2 diabetes mellitus with stage 3a chronic kidney disease, without long-term current use of insulin (HCC); Acquired hypothyroidism; Hypertensive kidney disease with stage 3a chronic kidney disease; Anxiety, generalized; Multiple pulmonary nodules; Thrush; Generalized osteoarthritis of multiple sites Allergies Active Allergy Reactions Criticality Noted Date [...] a day E11.9 1 Kit 2 Active hydroCHLOROthiazid e 12.5 MG Oral Tablet [...] 3 Active Ezetimibe 10 MG Oral Tablet (Zetia)Indications [...] of major depressive disorder without prior episode ([facility]) TAKE 1 - 2 TABLETS BY [...] eyes 2 times a day. 3 Active Fluticasone-Umecli din-Vilant 200-62.5-25 MCG/ACT Aerosol Powder [...] Hour (toPROL XL)Indications:Par oxysmal atrial fibrillation (HCC) Take 3 Tablets by mouth in the morning and 3 Tablets before bedtime. 4 Active Levothyroxine Sodium 150 MCG Oral Tablet (Levoxyl)Indicatio ns:Acquired hypothyroidism Take 1 Tablet by mouth daily first thing in the morning. (at least 30 min prior to breakfast or other meds) 90 Tablet 1 4 Active Nystatin 087480 UNIT/ML Mouth/Throat SuspensionIndicati ons:Thrush Swish and swallow 5 mL in the morning and 5 mL at noon and 5 mL in the evening and 5 mL before bedtime. For thrush.. 240 mL 4 024 Active Diclofenac Sodium 1 % External Gel [...] check glucose E11.9 100 Each 4 Active OneTouch UltraSoft LancetsIndications :Type 2 diabetes mellitus with stage 3a chronic kidney disease, without long-term current use of insulin (HCC) Use once daily to check glucose E11.9 100 Each 3 024 Discontinued(Re fill) Acetaminophen ER 650 MG Oral Tablet Extended Release Take 1 Tablet by mouth every 8 hours as needed. 024 Discontinued Levothyroxine Sodium 150 MCG Oral Tablet (Levoxyl) Take 1 Tablet by mouth daily first thing in the morning. (at least 30 min prior to breakfast or other meds) 90 Tablet 1 4 024 Discontinued(Re fill) Metoprolol Tartrate 50 MG Oral Tablet (Lopressor) take 1 and 1/2 tablets in the morning and 1 tablet in the evening. 225 Tablet 3 4 024 Discontinued Hospital, Clinic, or Other Facility Administered Medication Ordered Dose Route Frequency Start Date End Date Status vitamin b-12 (Cyanocobalamin) inj 1,000 mcgIndications:Vitamin B12 deficiency 1000 mcg IM [id number] 02/06/2023 01/08/2024 Active documented as of this [...] Taxonomy. Impaired fasting glucose 06/23/200607/2011 LOC PRIM [id number] 04/16/200609/24 LOC PRIM OSTEOARTH-ANKLE 04/16/2006 Sprain of [...] Sign Reading Time Taken Comments Blood Pressure 132/72 12/17/2023 5:43 PM EDT Pulse 78 12/17/2023 5:43 PM EDT Temperature 36.1 C (97 F) 12/17/2023 5:43 PM EDT Respiratory Rate - - Oxygen Saturation 94% 12/17/2023 5:43 PM EDT Inhaled Oxygen Concentration - - Weight 86.6 kg (191 lb) 12/17/2023 5:43 PM EDT Height 149.9 cm (4' 11.02") 12/17/2023 5:43 PM E DT Body Mass Index 38.55 12/17/2023 5:43 PM EDT documented in this encounter Patient Instructions * Patient Instructions* Rosemary Valentine MD - 12/17/2023 5:56 PM EDT Taking Medicine Safely Medicine is given to help treat or prevent illness. But if you don't take it correctly, it might not help. It might even harm you. Your doctor or pharmacist can help you learn the right way to take your medicine. Listed below are some tips to help you take medicine safely. Safety Tips Have a routine for taking each medicine. Make it part of something you do each day, such as brushing your teeth or eating a meal. When you go to the hospital or your doctor's office, bring all your current medicines in their original boxes or bottles. If you can't do that, bring an up-to-date list of your medicines. Do not stop taking a prescription medicine unless your doctor tells you to. Doing so could make your condition worse. Do not share medicines. Let your doctor and pharmacist know of any allergies you have. Taking prescription medicines with alcohol, street drugs, herbs, supplements, or even some mttz-ovj-acryzyw medicines can be harmful. Talk to your doctor or pharmacist before using any of these things while taking a prescription medicine. When filling your prescriptions, try using the same pharmacy for all your medicines. If not, let the pharmacist know what medicines you are already on. Keep medicines out of the reach of children and pets. Do not use medicine that has or that doesn't look or smell right. Get rid of it properly. To find out the right way to get rid of medicine: Call your [facility] or [facility] government's household trash and recycling service and ask if a drug take-back program is available in your community. Call your local pharmacy and ask the right way to get rid of the medicine. Go to http://www.fda.gov/ForConsumers/ConsumerUpdates/ybg793698 to learn how to get rid of medicines safely. Using Generic Medicines Medicines have brand names and generic (chemical) names. When a medicine is first made, it is sold only under its brand name. Later, it can be made and sold as a generic. Generic medicines cost less than brand-name medicines and most work just as well. Most people can use the generic medicine instead of the brand-name medicine, unless their doctor says otherwise. 7278-8819 [facility], [address] [place] [address]. All rights reserved. This information is not intended as a substitute for professional medical care. Always follow your healthcare professional's instructions. Coping with Your Diagnosis of a Chronic Health Condition If you have a chronic health condition, you have a problem that may not go away over time. Heart disease, asthma, arthritis, and diabetes are just a few of the chronic conditions that exist. Right now, these conditions have no known cure. But you can take an active role in managing your health. Coping with Your Diagnosis If you've just learned about your health condition, you may be angry, depressed, or afraid. Or you might feel relieved just to know what's wrong. Even if you've known about your health problem for a while, adjusting to it can be hard. But learning about your condition can help you cope. Look for books at your local library. If you have access to a computer, check the Internet. Or contact a group that focuses on your specific problem. Accepting Change Change is hard for most people. Yet right now you may be facing many changes. What you eat or the way you work may change. Your moods, and even your symptoms, might vary from day to day. Although it isn't easy, learning to accept change can help you feel more in control. Taking Control Feeling you have control can make living with your condition easier. Discuss treatment options withyour health care provider. The more you know, the more active you can be in your care. Moving Forward You may wonder whether you will be able to do the things you've always done. That depends on your age, the condition you have, and your goals. To make the most of each day, try to build caring relationships, be active, and eat right. Also, do your best to keep a sense of humor. [facility], [address] [place] [address], [place] [address]. All rights reserved. This information is not intended as a substitute for professional medical care. Always follow your healthcare professional's instructions. Taking an Active Role in Your Medicines Take the time to learn about your medicine. For instance, why are you taking it? What does it do? Work with your doctor or other health care providers to get the answers you need. Talk to your pharmacist about how to take each medicine, and ask for a fact sheet on each one. Ask Questions About Your Medicine What is the name of the medicine? Why do I need to take it? When should I take it? How should I take it: with water? with food? on an empty stomach? How much do I take? What do I do if I miss a dose? What side effects could it cause and which ones should I call the doctor about? Are there any foods or medicines I should avoid while taking this medicine? Keeping track of your medications? Name of medicine: Taken for: Dose: Time(s) to take it: Take an Active Role Fill all your prescriptions at the same pharmacy. This keeps your medicine history in one place. Talk to the pharmacist. Make sure you understand how to take each medicine. Ask for a fact sheet about each one. Tell your doctor and pharmacist about all the prescription and lvhk-mej-zcifozr medicines you take.This includes vitamins and herbal remedies. Tell your doctor and pharmacist if you have any medical conditions or allergies to any medicine or food, or if you are or . Keep a list of all your medicines. Use the sample to the right as a guide for the type of information needed. 4255-1774 [facility], [address] [place] [address]. All rights reserved. This information is not intended as a substitute for professional medical care. Always follow your healthcare professional's instructions. documented in this encounter Progress Notes * Rosemary Valentine MD - 12/17/2023 5:56 PM EDT SUBJECTIVE: Violeta Calvert is a 78 year old female. Chief Complaint Patient presents with Hospital Follow-Up Hospital Follow-Up Recent Admission: Patient was recently admitted to [facility] on 12/02/23. The date of discharge was 12/07/23. Discharge report received and reviewed. HPI: Brief Clinical History Ms. Calvert is a 78 year old female last seen in Family Medicine [facility] on 08/28/2023 by Shanell Agarwal She has a h/o the following chronic conditions indicated on the problem list: Chronic Conditions Chronic diastolic congestive heart failure (HCC) Paroxysmal atrial fibrillation (HCC) Type 2 diabetes mellitus with stage 3a chronic kidney disease, without long-term current use of insulin (HCC) Here with her daughter for hospital follow-up. Was admitted to [facility] 12/02/23-12/07/23 with confusion, hallucinations and dysuria. She was also found to be in new onset atrial fibrillation. Her UA was positive. Her liver tests were elevated. CT scan of the abdomen and pelvis was negative for acute changes. The liver was normal. There were also bibasilar pulmonary nodules indeterminate and unchanged from prior studies. Her rosuvastatin and Zetia were discontinued. She was seen by GI . Acute hepatitis panel and EBV were negative. Autoimmune liverpanel was also negative. [place] to possibly be due to recent antibiotic use, sepsis and/or Tylenol. Her liver tests returned to normal. Recommended to have repeat CMP and consider restarting cholesterol medication in the future if possible and avoid Tylenol. Her UA was positive and she was treated for a UTI with IV antibiotics, including meropenem and Vancomycin on admission and switched to IV Zosyn and then Rocephin. Completed course prior to discharge.She had resolution of her hallucinations. Urine culture and blood cultures were negative. She was seen by cardiology for new onset atrial fibrillation. She was started on IV heparin and transitioned to Eliquis. Her metoprolol tartrate was changed to succinate 75 mg twice daily with good control of her heart rate. Echocardiogram showed normal LV systolic function. She had NOLAN on admission that improved with IV fluids. Her irbesartan and HCTZ were resumed prior to discharge. Patient states she is feeling better. Her daughter feels she is back to baseline. She has been out of her levothyroxine and needs a refill. Wondering about restarting cholesterol medication. She was given two different inhalers i place of her Trelegy while admitted and they gave her the leftover inhalers to take home. Has white patches on her tongue. Has had thrush in the past. Wondering what she can take for joint pain that is not Tylenol. Hemoglobin AIC Results: Lab Results Component Value Date/Time HEMOGLOBIN A1C - [facility] 6.4 (H) 10/09/2023 03:34 PM HEMOGLOBIN A1C - [facility] 6.8 (H) 01/19/2023 02:48 PM HEMOGLOBIN A1C - [facility] 6.7 (H) 07/03/2022 03:01 PM HEMOGLOBIN A1C - [facility] 6.8 (H) 02/05/2020 03:05 PM HEMOGLOBIN A1C - [facility] 6.4 (H) 07/29/2019 04:37 PM HEMOGLOBIN A1C - [facility] 7.1 (H) 02/04/2019 04:53 PM Lab Results Component Value Date/Time TSH - [facility] 8.05 (H) 03/19/2023 03:13 PM TSH - [facility] 10.20 (H) 01/19/2023 02:48 PM TSH - [facility] 7.87 (H) 11/27/2022 02:49 PM TSH - [facility] 1.00 02/05/2020 03:05 PM TSH - [facility] 0.64 07/29/2019 04:37 PM TSH - [facility] 1.48 07/30/2018 03:29 PM Patient Active Problem List Diagnosis Other allergic rhinitis Varicose vein of leg Acquired hypothyroidism ADVANCE DIRECTIVE INFORMATION CERVICAL DISC DEGEN Generalized osteoarthritis of multiple sites Degeneration of lumbosacral intervertebral disc Primary localized osteoarthrosis of shoulder region Spinal stenosis of lumbar region without neurogenic claudication Acquired spondylolisthesis Moderate persistent asthma without complication Cervical spine degeneration Dyslipidemia, goal LDL below 100 HTN, goal below 140/90 Vitamin B12 deficiency Statin intolerance OA (osteoarthritis) of knee Multiple pulmonary nodules Hiatal hernia Paroxysmal atrial fibrillation (HCC) 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 mellitus with polyneuropathy (HCC) Asymptomatic bilateral carotid artery stenosis Gastroesophageal reflux disease with esophagitis Anxiety, generalized Hypertensive kidney disease with stage 3a chronic kidney disease 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 Current moderate episode of major depressive disorder without prior episode (HCC) Type 2 diabetes mellitus with stage 3a chronic kidney disease, without long-term current use of insulin (HCC) History of 2019 novel coronavirus disease (COVID-19) Immunization not carried out because of patient decision BMI 40.0-44.9, adult (HCC) Atherosclerosis of aorta (HCC) Slow transit constipation Morbid obesity (HCC) Chronic diastolic congestive heart failure (HCC) Chronic chest pain Physical deconditioning Current Outpatient Medications Medication Sig Dispense Refill Polyethylene Glycol 3350 17 GM/SCOOP Oral Powder Take 17 g by mouth at bedtime as needed for Constipation. Loratadine 10 MG Oral Capsule Take 1 Capsule by mouth in the morning. Cyanocobalamin 1000 MCG/ML Injection Solution (Cyanocobalamin) Inject as directed 1,000 mcg every 30 days . 1 mL 11 MD [employer] w/Device Kit Use up to 4 times a day E11.9 1 Kit 0 hydroCHLOROthiazide 12.5 MG Oral Tablet (Hydrodiuril) TAKE ONE TABLET BY MOUTH IN THE MORNING 90 Tablet 3 Pantoprazole Sodium 20 MG Oral Tablet Delayed Release (Protonix) Take 1 Tablet by mouth in the morning and 1 Tablet in the evening. 180 Tablet 1 Albuterol Sulfate HFA 108 (90 Base) MCG/ACT Inhalation Aerosol Solution Inhale 2 Puffs by mouth every 6 hours as needed for Shortness of Breath or Wheezing. 18 g 5 Sertraline HCl 100 MG Oral Tablet (Zoloft) TAKE 1 - 2 TABLETS BY MOUTH EVERY DAY 200 Tablet 2 Fluticasone Propionate 50 MCG/ACT Nasal Suspension (Flonase) Administer 2 Sprays into each nostril in the morning. 18.2 mL 11 Irbesartan 150 MG Oral Tablet (Avapro) Take 1 Tablet by mouth in the morning. 90 Tablet 1 Trulicity 0.75 MG/0.5ML Subcutaneous Solution Pen-injector (Dulaglutide) Inject 0.75 mg under the skin once a week. (on Mondays) 6 mL 1 Olopatadine HCl 0.1 % Ophthalmic Solution (Pataday) Instill 1 Drop into both eyes in the morning and 1 Drop before bedtime. Loteprednol Etabonate 0.5 % Ophthalmic Suspension (Lotemax) Instill 1 Drop into both eyes 2 times aday. Hfukdauehmp-Nkhzmhiqi-Euizpw 200-62.5-25 MCG/ACT Aerosol Powder Breath Activated (Trelegy Ellipta) Inhale 1 Puff by mouth daily. 60 Blister Dosing Unit 3 Ondansetron HCl 4 MG Oral Tablet (Zofran) take 1 tablet every 6 hours as needed for nausea. 30 Tablet 2 OneTouch Verio In Vitro Strip (Glucose Blood) Use once daily to check glucose E11.9 100 Strip 5 NATURAL SUPPLEMENT Take 1-2 Tablets by mouth at bedtime as needed for Sleep. Relaxium ALPRAZolam 0.5 MG Oral Tablet (xaNAX) take 1 tablet in the morning and evening if needed for anxiety 60 Tablet 0 Apixaban 5 MG Oral Tablet (Eliquis) Take 1 Tablet by mouth in the morning and 1 Tablet before bedtime. Metoprolol Succinate ER 25 MG Oral Tablet Extended Release 24 Hour (toPROL XL) Take 3 Tablets by mouth in the morning and 3 Tablets before bedtime. Levothyroxine Sodium 150 MCG Oral Tablet (Levoxyl) Take 1 Tablet by mouth daily first thing in the morning. (at least 30 min prior to breakfast or other meds) 90 Tablet 1 Nystatin 933168 UNIT/ML Mouth/Throat Suspension Swish and swallow 5 mL in the morning and 5 mL at noon and 5 mL in the evening and 5 mL before bedtime. For thrush.. 240 mL 1 Diclofenac Sodium 1 % External Gel (Voltaren) Apply topically to affected area 4 times a day as needed (joint pain). Apply to affected joint 350 g 5 OneTouch UltraSoft Lancets Use once daily to check glucose E11.9 100 Each 5 ASPIRIN 81 MG PO TABS Take 1 Tablet by mouth in the morning. (Patient not taking: Reported on 12/17/2023) Iron-Vitamin C 65-125 MG Oral Tablet Take 1 Tablet by mouth in the morning. (Patient not taking: Reported on 12/17/2023) 90 Tab 3 Docusate Sodium 100 MG Oral Capsule (Colace) Take 2 Capsules by mouth at bedtime as needed for Constipation. Patient taking daily at bedtime (Patient not taking: Reported on 12/17/2023) Ezetimibe 10 MG Oral Tablet (Zetia) TAKE ONE TABLET BY MOUTH IN THE MORNING (Patient not taking: Reported on 12/17/2023) 90 Tablet 3 Acetaminophen ER 650 MG Oral Tablet Extended Release (Arthritis Pain Relief) Take 1 Tablet by mouthevery 8 hours as needed. (Patient not taking: Reported on 12/17/2023) Rosuvastatin Calcium 10 MG Oral Tablet (Crestor) Take 1 Tablet by mouth in the morning. (Patient not taking: Reported on 12/10/2023) 90 Tablet 3 Current Facility-Administered Medications Medication Dose Route Frequency Provider Last Rate Last Admin vitamin b-12 (Cyanocobalamin) inj 1,000 mcg 1,000 mcg Intramuscular Q4 Weeks James Erazo MD 1,000 mcg at 12/17/23 1820 Current and discharge medications have been reconciled. Review of patient's allergies indicates: Allergen Reactions Codeine Nausea/vomiting Iodinated Contrast Media Hives Iodine Hives Latex Contact dermititis Macrobid [Nitrofurantoin] Rash Metformin Darvocet [Propoxyphene N-Acetaminophen] Nausea/vomiting OBJECTIVE: BP 132/72 | Pulse 78 | Temp 36.1 C (97 F) (Tympanic) | Ht 1.499 m (4' 11.02") | Wt 86.6 kg (191lb) | SpO2 94% | BMI 38.55 kg/m | BSA 1.9 m Review Of Systems: Skin: pt denies, new or changing moles, pigmentation change, rash, scaling, itching, bruising, lumps or bumps, hair changes, nail changes Eyes: negative Ears/Nose/Throat: pt denies:, tinnitus, vertigo, Respiratory: pt denies:, cough, sputum, pneumonia or bronchitis, wheezing, and +COPD Cardiovascular: +as per HPI Gastrointestinal: +chronic right sided abdominal pain, +heartburn Genitourinary: pt denies:, nocturia, dysuria, frequency, and +recent UTI Musculoskeletal: +OA of right shoulder and knees Neurologic: pt denies:, headaches, syncope, and seizures Psychiatric: + anxiety Hematologic/Lymphatic/Immunologic: pt denies:, recurrent infections, immunodeficiency, anemia, bruising, bleeding disorder, fever, night sweats, chills, and weight loss Endocrine: +hypothyroidism and type 2 diabetes PHYSICAL EXAM: General: alert, no distress, well nourished, and well developed Head: Normocephalic, No masses, lesions, tenderness or abnormalities Eye Exam: PERRLA, extraocular movements intact, conjunctiva are pink and non- injected, sclera clear Ears: External ears normal, Canals clear, TM's Normal Nose: no mucosal erythema, no mucosal edema, no purulent discharge Oropharynx: no exudate, no erythema, lips, buccal mucosa, and tongue normal, mucous membranes are moist, and thrush Neck: supple, no adenopathy, no bruits Heart: regular rate & rhythm, no murmur, and no gallops Lungs: chest symmetric with normal AP diameter, no chest deformities noted, no chest wall tenderness, lungs clear to auscultation Abdomen: abdomen soft, normal bowel sounds, no masses or organomegaly, and +tender over right mid abdomen. No guarding or rebound Extremities: no edema, no clubbing, no cyanosis Neuro Exam: alert & oriented x 3 with fluent speech, no focal motor/sensory deficits ASSESSMENT: Hospital discharge follow-up (Primary) - DISCH MED RECON CUR MED LIS Elevated liver enzymes--repeat labs. Consider restarting Crestor and/or Zetia if improved. - COMPREHENSIVE METABOLIC PANEL; Future; Expected date: 12/17/2023 Paroxysmal atrial fibrillation (HCC)--new. Continue Eliquis and metoprolol succinate 75 mg twice a day. Keep follow-up with cardiology as scheduled. Type 2 diabetes mellitus with stage 3a chronic kidney disease, without long-term current use of insulin (HCC)--diabetes controlled. Needs refill of Lancets. - OneTouch UltraSoft Lancets; Use once daily to check glucose E11.9 Acquired hypothyroidism--controlled. - Levothyroxine Sodium 150 MCG Oral Tablet (Levoxyl); Take 1 Tablet by mouth daily first thing in the morning. (at least 30 min prior to breakfast or other meds) Hypertensive kidney disease with stage 3a chronic kidney disease--blood pressure controlled. Check follow-up CMP Anxiety, generalized--continue alprazolam as needed. Multiple pulmonary nodules--have been stable on serial imaging Thrush - Nystatin 026035 UNIT/ML Mouth/Throat Suspension; Swish and swallow 5 mL in the morning and 5 mL at noon and 5 mL in the evening and 5 mL before bedtime. For thrush.. Generalized osteoarthritis of multiple sites--start Voltaren gel PRN. - Diclofenac Sodium 1 % External Gel (Voltaren); Apply topically to affected area 4 times a day as needed (joint pain). Apply to affected joint Follow Up: Return as scheduled. PLAN: Continue present medication(s): Begin medication(s): Nystatin for thrush. Diclofenac gel for joint pain--mostly her right shoulder,knees, and back Renew prescription(s) for: Levothyroxine Schedule labs: CMP and consider restarting Crestor if normal with close follow-up Patient education: Discussed medication changes. Recommend resuming Trelegy in place of the inhalers she was given while admitted (substituted due to formulary). Discussed Nystatin. Follow up as scheduled. I spent a total of 40-54 minutes (exact time 42 mins) minutes on the date of service in preparation, delivery, and documentation of the care provided to Violeta Calvert excluding any time spent in performance of separately billed services. Rosemary Valentine MD documented in this encounter Nursing Notes * Olamide Florentino LPN - 12/17/2023 5:42 PM EDT Discuss inhalers Thyroid medication Cholesterol medication documented in this encounter Plan of Treatment Upcoming Encounters Date Type Department Care Team (Late st Contact Info) Description 12/24/2023 11:20 AM EDT Office Visit Family Medicine [address] [place] [phone] Shanell Agarwal MD [address] [place] [address] [place] [phone] 02/01/2024 3:00 PM EDT Nurse Only Ancillary [address] [place] [address] [place], Nurse Annual Wellness [address] [place] [address] [place] [phone] 04/24/2024 3:30 PM EDT Office Visit Cardiology [address] [place] [address] Herberth Denny PA-C [address] [place] [id number] Scheduled Orders Name Type Priority Associated Diagnoses Orde r Schedule COMPREHENSIVE METABOLIC PANEL Lab Routine Elevated liver enzymes Expected: 12/17/2023 (Approximate), Expires: 12/16/2024 Health Maintenance Due Date Last Done Comments DXA Scan 01/04/2023 01/05/2020, 01/04/2015 COVID-19 Vaccine ( season) 2023 Colonoscopy 04/19/2023 04/19/2018, 03/26, 09/29/2014, Additional history exists CKD HGB USE SMARTSET 97995 01/20/202401/19, 01/19/2023, 07/03/2022, Additional history exists Depression [...] Additional history exists CKD PHOS USE SMARTSET 84317 10/08/202409/23, 07/03/2022, 05/11/2021, Additional history exists DTaP,Tdap,and [...] encounter Medical Devices Implanted Type Area Manager Office Device Identifier Shelf Expiration Date Model / Serial / Lot Lens Intraoc 19.5 - [id number] - [id number] Implanted:Qty: 1 on 03/17/2021 by Migel Dejesus MD at [facility] Left: Eye [employer]OMB 10/22/2025 [id number] / [id number] / [id number] Lens Intraoc 20.0 - [id number] - [id number] Implanted:Qty: 1 on 03/31/2021 by Migel Dejesus MD at OR [facility] Right: Eye BAUSCH [employer] LOMB 12/22/2025 [id number] / [id number] / [id number] documented as of this encounter Visit Diagnoses Diagnosis Hospital discharge follow-up- Primary Other follow-up examination Elevated liver enzymes Nonspecific elevation of levels of transaminase or lactic acid dehydrogenase (LDH) Paroxysmal atrial fibrillation (HCC) Atrial fibrillation Type 2 diabetes mellitus with stage 3a chronic kidney disease, without long-term current use of insulin (HCC) Acquired hypothyroidism Unspecified hypothyroidism Hypertensive kidney disease with stage 3a chronic kidney disease Anxiety, generalized Generalized anxiety disorder Multiple pulmonary nodules Other nonspecific abnormal finding of lung field Thrush Candidiasis of mouth Generalized osteoarthritis of multiple sites Generalized osteoarthrosis, involving multiple sites documented in this encounter Administered Medications Active Administered Medications - up to 3 most recent administrations Medication Order MAR Action Action Date Dose Rate Site vitamin b-12 (Cyanocobalamin) inj 1,000 mcg 1,000 mcg, Intramuscular, [id number], First dose on Sun02/06/23 at 1345, Last dose on Sun12/11/23 at 1345, For 12 doses Given 12/17/2023 6:20 PM EDT 1,000 mcg Deltoid Left Upper Given 11/02/2023 4:02 PM EDT 1,000 mcg De ltoid Right Upper Given 09/14/2023 2:48 PM EDT [...] patient or by statute hierarchy) Care Teams Asset Management Lead Relationship Specialty Start Date End Date Rosemary Valentine MD [address] [place] [address] [place] [address] PCP - General Family Medicine 09/05/23 documented as of this encounter
--- OUTSIDE RECORDS SUMMARY | 2024-04-16 06:50 | External Medical Summary | Summary of Care ---
Author Name Unknown Organization [facility] Address [address] [place] [address] Phone [phone] Care Team Providers Care Conveyor Man Name Role Phone Rosemary Valentine MD Primary Care Provide r Encounter Details Date Type Department Care Team (Late st Contact Info) Description 12/24/2023 Population Health External Data Unspecified Department Allergies Active Allergy Reactions Criticality Noted Date Comments Codeine Nausea/vomiting 08/15/2011 Propoxyphene N-Acetaminophen Nausea/vomiting Low 08/24/2008 Iodinated Contrast Media Hives 02/06/2023 Iodine Hives 01/08/2001 Latex 09/26/2012 Contact dermititis Nitrofurantoin Rash 09/07/2014 Metformin 04/12/2021 documented as of this encounter (statuses as of 12/24/2023) Medications Medication Sig Dispensed Refills Start Date [...] disease, without long-term current use of insulin ([facility]) Inject 0.75 mg under the skin once [...] meds) 90 Tablet 1 12/17/2023 Active Nystatin [id number] UNIT/ML Mouth/Throat SuspensionIndication s:Thrush Swish and swallow [...] 1,000 mcgIndications:Vitamin B12 deficiency 1000 mcg IM [id number] 02/06/2023 01/08/2024 Active documented as of this encounter (statuses as of 12/24/2023) Active Problems Problem Noted Date Diagnosed Date [...] as of this encounter (statuses as of 12/24/2023) Resolved Problems Problem Noted Date Diagnosed Date [...] Taxonomy. Impaired fasting glucose 06/23/200607/2011 LOC PRIM [id number] 04/16/200609/24 LOC PRIM OSTEOARTH-ANKLE 04/16/2006 Sprain of [...] as of this encounter (statuses as of 12/24/2023) Immunizations Name Administration Dates Next Due Pneumococcal [...] No 07/30/2023 Does the household have a [facility] source of income? (Household - for [...] 3:00 PM EDT Nurse Only Ancillary [address] [place] [address] [place], Nurse [address] [place] [address] 04/24/2024 3:30 PM EDT Office Visit Cardiology [address] [place] [address] Herberth Denny PA-C [address] [place] [address] Health Maintenance Due Date Last Done Comments DXA Scan 01/04/2023 01/05/2020, 01/04/2015 COVID-19 Vaccine (2022- season) 2023 Colonoscopy 04/19/2023 04/19/2018, 03/26, 09/29/2014, Additional history exists CKD HGB USE SMARTSET 97488 01/20/202401/19, 01/19/2023, 07/03/2022, Additional history exists Depression [...] Additional history exists CKD PHOS USE SMARTSET 62804 10/08/202409/23, 07/03/2022, 05/11/2021, Additional history exists DTaP,Tdap,and [...] this encounter Medical Devices Implanted Type Area Personal Injury Litigation Paralegal Device Identifier Shelf Expiration Date Model / Serial / Lot Lens Intraoc 19.5 - [id number] - [id number] Implanted:Qty: 1 on 03/17/2021 by Migel Dejesus MD at OR [facility] Left: Eye [employer]CH [employer]OMB 10/22/2025 [id number] / [id number] / [id number] Lens Intraoc 20.0 - [id number] - [id number] Implanted:Qty: 1 on 03/31/2021 by Migel Dejesus MD at OR [facility] Right: Eye [employer]CH [employer] LOMB 12/22/2025 [id number] / [id number] / [id number] documented as of this encounter Advance Directives Healthcare Agents on File Name Relationship Healthcare Agent Relationshi p Communication Mimi Jarrell Adult Child Health Care Repr esentative (appointed verbally by patient or by statute hierarchy) Yanci Adkins Adult Child Health Care Repr esentative (appointed verbally by patient or by statute hierarchy) Care Teams Conveyor Man Relationship Specialty Start Date End Date Rosemary Valentine MD [address] [place] [address] [place] [phone] PCP - General Family Medicine 09/05/23 documented as of this encounter
--- OUTSIDE RECORDS SUMMARY | 2024-04-16 06:50 | External Medical Summary | Summary of Care ---
Author Name Unknown Organization [facility] Address [address] [place] [address] Phone [phone] Care Team Providers Care Homicide Investigator Name Role Phone Rosemary Valentine MD Primary Care Provide r Encounter Details Date Type Department Care Team (Late st Contact Info) Description 12/05/2023 Population Health External Data Unspecified Department Allergies Active Allergy Reactions Criticality Noted Date Comments Codeine Nausea/vomiting 08/15/2011 Propoxyphene N-Acetaminophen Nausea/vomiting Low 08/24/2008 Iodinated Contrast Media Hives 02/06/2023 Iodine Hives 01/08/2001 Latex 09/26/2012 Contact dermititis Nitrofurantoin Rash 09/07/2014 Metformin 04/12/2021 documented as of this encounter (statuses as of 12/05/2023) Medications Medication Sig Dispensed Refills Start Date [...] of insulin ([facility]) Use up to 4 times [...] of major depressive disorder without prior episode ([facility]) TAKE 1 - 2 TABLETS [...] needed for anxiety 60 Tablet 11/29/2023 Active Cephalexin 500 MG Oral Capsule (Keflex)Indication s:Suspected urinary tract infection Take 1 Capsule by mouth in the morning and 1 Capsule at noon and 1 Capsule in the evening and 1 Capsule before bedtime. Do all this for 7 days. 28 Capsule 11/30/2023 12/07/2023 Active Hospital, Clinic, or Other Facility Administered Medication Ordered Dose Route Frequency Start Date End Date Status vitamin b-12 (Cyanocobalamin) inj 1,000 mcgIndications:Vitamin B12 deficiency 1000 mcg IM [id number] 02/06/2023 01/08/2024 Active documented as of this encounter (statuses as of 12/05/2023) Active Problems Problem Noted Date Diagnosed Date [...] as of this encounter (statuses as of 12/05/2023) Resolved Problems Problem Noted Date Diagnosed Date [...] Taxonomy. Impaired fasting glucose 06/23/200607/2011 LOC PRIM [id number] 04/16/200609/24 LOC PRIM OSTEOARTH-ANKLE 04/16/2006 Sprain of [...] as of this encounter (statuses as of 12/05/2023) Immunizations Name Administration Dates Next Due Pneumococcal [...] PM EDT Office Visit Family Medicine [address] [place] [phone] Rosemary Valentine MD [address] [place] [address] [place] [phone] 02/01/2024 3:00 PM EDT Nurse Only Ancillary [address] [place] [address] [place], Nurse [address] [place] [address] 04/24/2024 3:30 PM EDT Office Visit Cardiology [address] [place] [address] Herberth Denny PATalC [address] [place] [address] Health Maintenance Due Date Last Done Comments DXA Scan 01/04/2023 01/05/2020, 01/04/2015 COVID-19 Vaccine ( season) 2023 Colonoscopy 04/19/2023 04/19/2018, 03/26, 09/29/2014, Additional history exists CKD HGB USE SMARTSET 61214 01/20/202401/19, 01/19/2023, 07/03/2022, Additional history exists Depression [...] Additional history exists CKD PHOS USE SMARTSET 58399 10/08/202409/23, 07/03/2022, 05/11/2021, Additional history exists DTaP,Tdap,and [...] this encounter Medical Devices Implanted Type Area Hay Stacker Operator Device Identifier Shelf Expiration Date Model / Serial / Lot Lens Intraoc 19.5 - [id number] - [id number] Implanted:Qty: 1 on 03/17/2021 by Migel Dejesus MD at OR [facility] Left: Eye BAUSCH [employer] LOMB 10/22/2025 [id number] / [id number] / [id number] Lens Intraoc 20.0 - [id number] - [id number] Implanted:Qty: 1 on 03/31/2021 by Migel Dejesus MD at OR [facility] Right: Eye BAUSCH & LOMB 12/22/2025 [id number] / [id number] / [id number] documented as of this encounter Advance Directives Healthcare Agents on File Name Relationship Healthcare Agent Relationshi p Communication Mimi Vieyra Adult Child Health Care Repr esentative (appointed verbally by patient or by statute hierarchy) Yanci Adkins Adult Child Health Care Repr esentative (appointed verbally by patient or by statute hierarchy) Care Teams Homicide Investigator Relationship Specialty Start Date End Date Rosemary Valentine MD [address] [place] [address] [place] [phone] PCP - General Family Medicine 09/05/23 documented as of this encounter
--- OUTSIDE RECORDS SUMMARY | 2024-04-16 06:51 | External Medical Summary | Summary of Care ---
Author Name Unknown Organization [facility] Address [address] [place] [address] Phone [phone] Care Team Providers Care Hand Miter Operator Name Role Phone Rosemary Valnetine MD Primary Care Provide r Reason for Visit * Reason Comments eRx-Medication Refill Encounter Details Date Type Department Care Team (Late st Contact Info) Description 11/30/2023 Refill Family Medicine [address] [phone] Rosemary Valentine MD [address] [place] [address] [place] [address] Anxiety Allergies Active Allergy Reactions Criticality Noted Date Comments Codeine Nausea/vomiting 08/15/2011 Propoxyphene N-Acetaminophen Nausea/vomiting Low 08/24/2008 Iodinated Contrast Media Hives 02/06/2023 Iodine Hives 01/08/2001 Latex 09/26/2012 Contact dermititis Nitrofurantoin Rash 09/07/2014 Metformin 04/12/2021 documented as of this encounter (statuses as of 12/03/2023) Medications Medication Sig Dispensed Refills Start Date [...] 1,000 mcgIndications:Vitamin B12 deficiency 1000 mcg IM [id number] 02/06/2023 01/08/2024 Active documented as of this encounter (statuses as of 12/03/2023) Active Problems Problem Noted Date Diagnosed Date [...] as of this encounter (statuses as of 12/03/2023) Resolved Problems Problem Noted Date Diagnosed Date [...] Taxonomy. Impaired fasting glucose 06/23/200607/2011 LOC PRIM [id number] 04/16/200609/24 LOC PRIM OSTEOARTH-ANKLE 04/16/2006 Sprain of [...] as of this encounter (statuses as of 12/03/2023) Immunizations Name Administration Dates Next Due Pneumococcal [...] encounter Miscellaneous Notes * Telephone Encounter - Luci Jessica [facility] - 12/03/2023 8:01 AM EDT Refused Prescriptions: Disp Refills ALPRAZolam 0.5 MG Oral Tablet (xaNAX) 60 Tab*0 Sig: take 1 tablet in the morning and evening if needed for anxiety Refused By: LUCI JESSICA Reason for Refusal: Duplicate Request * Telephone Encounter - Interface, [facility] - 12/02/2023 7:32 PM EDT Pending Prescriptions: Disp Refills ALPRAZolam 0.5 MG Oral Tablet [Pharmacy Me*60 Tab*0 Sig: take 1tablet in the morning and evening if needed for anxiety documented in this encounter Plan of Treatment Upcoming Encounters Date Type Department Care Team (Late st Contact Info) Description 12/03/2023 4:20 PM EDT Nurse Only Ancillary [address] [place] [address] [place], Nurse [address] [place] [address] 12/17/2023 5:40 PM EDT Office Visit Family Medicine [address] [place] [phone] Rosemary Valentine MD [address] [place] [address] [place] [address] 02/01/2024 3:00 PM EDT Nurse Only Ancillary [address] [place] [address] [place], Nurse [address] [place] [address] 04/24/2024 3:30 PM EDT Office Visit Cardiology [address] [place] [address] Herberth Denny PA-C [address] [place] [address] Health Maintenance Due Date Last Done Comments DXA Scan 01/04/2023 01/05/2020, 01/04/2015 COVID-19 Vaccine ( season) 2023 Colonoscopy 04/19/2023 04/19/2018, 03/26, 09/29/2014, Additional history exists CKD HGB USE SMARTSET 59615 01/20/202401/19, 01/19/2023, 07/03/2022, Additional history exists Diabetic [...] Additional history exists CKD PHOS USE SMARTSET 57369 10/08/202409/23, 07/03/2022, 05/11/2021, Additional history exists DTaP,Tdap,and [...] this encounter Medical Devices Implanted Type Area Staff Development Coordinator Rn Device Identifier Shelf Expiration Date Model / Serial / Lot Lens Intraoc 19.5 - [id number] - [id number] Implanted:Qty: 1 on 03/17/2021 by Migel Dejesus MD at OR [facility] Left: Eye BAUSCH [employer] LOMB 10/22/2025 [id number] / [id number] / [id number] Lens Intraoc 20.0 - [id number] - [id number] Implanted:Qty: 1 on 03/31/2021 by Migel Dejesus MD at OR [facility] Right: Eye BAUSCH [employer] LOMB 12/22/2025 [id number] / [id number] / [id number] documented as of this encounter Visit Diagnoses Diagnosis Anxiety Anxiety state, unspecified documented in this encounter Advance Directives Healthcare Agents on File Name Relationship Healthcare Agent Relationshi p Communication Miim Vieyra Adult Child Health Care Repr esentative (appointed verbally by patient or by statute hierarchy) Yanci Adkins Adult Child Health Care Repr esentative (appointed verbally by patient or by statute hierarchy) Care Teams Hand Miter Operator Relationship Specialty Start Date End Date Rosemary Valentine MD [address] [place] [address] [place] [address] PCP - General Family Medicine 09/05/23 documented as of this encounter
[2024-04-16] MEDS: ROSUVASTATIN CALCIUM 10 MG TAB PO SCH (08:22)
[2024-04-16] MEDS: EZETIMIBE 10 MG TAB PO SCH (08:22)
[2024-04-16] MEDS: LOSARTAN POTASSIUM 50 MG TAB PO SCH (08:22)
[2024-04-16] MEDS: METOPROLOL SUCC 25MG EXT REL TAB PO SCH (08:22)
[2024-04-16] MEDS: FLUTICASONE PROPIONATE NA SPR 16 GM BTL SCH (08:23)
[2024-04-16] MEDS: LORATADINE 10 MG TAB PO SCH (08:23)
--- OUTSIDE RECORDS SUMMARY | 2024-04-16 09:47 | External Medical Summary | Summary of Care ---
Author Name Unknown Organization [facility] Address [address] [place] [address] Phone [phone] Care Team Providers Care Bottle Packer Name Role Phone Rosemary Valentine MD Primary Care Provide r Reason for Visit * Reason Comments Outpatient Testing Encounter Details Date Type Department Care Team (Late st Contact Info) Description 04/15/2024 1:50 PM EDT Laboratory Laboratory [address] [place] [phone] , Specimen Drop Off [address] [place] [address] Dysuria Allergies Active Allergy Reactions Criticality Noted Date Comments Codeine Nausea/vomiting 08/15/2011 Propoxyphene N-Acetaminophen Nausea/vomiting Low 08/24/2008 Iodinated Contrast Media Hives 02/06/2023 Iodine Hives 01/08/2001 Latex 09/26/2012 Contact dermititis Nitrofurantoin Rash 09/07/2014 Metformin 04/12/2021 documented as of this encounter (statuses as of 04/15/2024) Medications Medication Sig Dispensed Refills Start Date [...] 1,000 mcgIndications:Vitamin B12 deficiency 1000 mcg IM [id number] 01/10/2024 12/11/2024 Active documented as of this encounter (statuses as of 04/15/2024) Active Problems Problem Noted Date Diagnosed Date [...] as of this encounter (statuses as of 04/15/2024) Resolved Problems Problem Noted Date Diagnosed Date [...] Taxonomy. Impaired fasting glucose 06/23/200607/2011 LOC PRIM [id number] 04/16/200609/24 LOC PRIM OSTEOARTH-ANKLE 04/16/2006 Sprain of [...] as of this encounter (statuses as of 04/15/2024) Immunizations Name Administration Dates Next Due Pneumococcal [...] 3:30 PM EDT Office Visit Cardiology [address] [place] [address] Herberth Denny PA-C [address] [place] [address] 04/25/2024 4:20 PM EDT Nurse Only Ancillary [address] [place] [address] [place], Nurse [address] [place] [address] 08/07/2024 3:30 PM EST Telemedicine Orthopaedics [address] [place] [phone] Otf Grier MD [address] [place] [address] Pending Results Name Type Priority Associated Diagnoses Date /Time URINALYSIS, REFLEX TO CULTURE (NOT FOR NEUTROPENIC PATIENTS) Lab Routine Dysuria 04/15/2024 1:42 PM EDT URINALYSIS, REFLEX TO CULTURE (CUP ONLY) Lab Routine Dysuria 04/15/2024 1:42 PM EDT URINALYSIS, REFLEX TO CULTURE Lab Routine Dysuria 04/15/2024 1:42 PM EDT Health Maintenance Due Date Last Done Comments DXA Scan 01/04/2023 01/05/2020, 01/04/2015 Colonoscopy 04/19/2023 04/19/2018, 03/26, 09/29/2014, Additional history exists CKD HGB USE SMARTSET 95942 01/20/202401/19, 01/19/2023, 07/03/2022, Additional history exists Adult [...] Additional history exists CKD PHOS USE SMARTSET 46355 10/08/202409/23, 07/03/2022, 05/11/2021, Additional history exists DTap/Tdap [...] this encounter Medical Devices Implanted Type Area High Wire Artist Device Identifier Shelf Expiration Date Model / Serial / Lot Lens Intraoc 19.5 - [id number] - [id number] Implanted:Qty: 1 on 03/17/2021 by Migel Dejesus MD at OR [facility] Left: Eye BAUSCH [employer] LOMB 10/22/2025 [id number] / [id number] / [id number] Lens Intraoc 20.0 - [id number] - [id number] Implanted:Qty: 1 on 03/31/2021 by Migel Dejesus MD at OR [facility] Right: Eye BAUSCH [employer] LOMB 12/22/2025 [id number] / [id number] / [id number] documented as of this encounter Visit Diagnoses Diagnosis Dysuria documented in this encounter Advance Directives Healthcare Agents on File Name Relationship Healthcare Agent Relationshi p Communication Mimi Vieyra Adult Child Health Care Repr esentative (appointed verbally by patient or by statute hierarchy) Yanci Adkins Adult Child Health Care Repr esentative (appointed verbally by patient or by statute hierarchy) Care Teams Bottle Packer Relationship Specialty Start Date End Date Rosemary Valentine MD [address] [place] [address] [place] [phone] PCP - General Family Medicine 09/05/23 documented as of this encounter
--- NOTE | 2024-04-16 13:05 | Hospitalist Progress Note ---
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 Outside EMR shows abnormal urinalysis, start Rocephin empirically follow outside culture Continue one-to-one Check urine drug screen, patient is on chronic benzodiazepines Continue other medical interventions as ordered Continue to monitor glucose with insulin treatment Extensive phone conversation with patient's daughter. She did not think that there is any way the patient could have taken more of her alprazolam than prescribed. Reports that patient has had fairly significant confusion when she has had infections before. Reports that the patient's sister recently having issues with memory and diagnosed with dementia. Camille Robertvega 55 minutes spent in review of records, communication with family, evaluation the patient at bedside Admission and Anticipated Discharge Date Admission Date: April 15, 2024 Subjective Patient still confused, not oriented to place. Still questionable some hallucinations Physical Exam Physical Exam: Constitutional: Alert, nontoxic HEENT: Mucous membranes moist. Lungs: Clear to auscultation, decreased, no wheezes rales or rhonchi CV: S1-S2, regular Abdomen: Soft, nontender, nondistended Extremities: No significant edema Neuro: No focal deficits, generalized weakness Psych: Cooperative, oriented to person but not time or place, oriented to year, does not know president Results & Data Results & Data Vital Signs (Past 12 Hours) Vital Signs Temp Pulse Resp BP Pulse Ox O2 Del Method 04/16/24 11:22 36.8 C 81 20 147/87 H 92 Room Air 04/16/24 08:08 37.3 C 68 17 136/80 93 Room Air 04/16/24 03:49 161/84 H 04/16/24 03:29 36.6 C 73 18 93 Room Air Diagnostic Findings Reviewed imaging, laboratory and diagnostic studies. Pertinent findings as below. Reviewed outside EMR, urinalysis done yesterday abnormal, culture pending CT head white matter ischemic disease TSH 4.2
[2024-04-16] MEDS: cefTRIAXone SODIUM 2,000 MG/50 ML BAG IV SCH (13:49)
[2024-04-16 16:16] LABS: Appearance Urine Cloudy (Clear); Bacteria Urine Automated None Seen (None Seen); Bilirubin Urine Negative (Negative); Blood Urine 3+ (Negative); Cast Urine Automated 0-2 /lpf (0-2); Color Urine Dark Yellow; Glucose Urine UA Negative (Negative); Ketones Urine Trace (Negative); Leukocyte Esterase Urine 3+ (Negative); Nitrite Urine Negative (Negative); Protein Urine 1+ (Negative); RBC Urine Automated >20 /hpf (0-2); Specific Gravity Urine 1.019 (1.000-1.030); Urobilinogen Urine Negative (Negative); WBC Urine Automated 21-50 /hpf (0-5); pH Urine 7.5 (4.5-7.5)
[2024-04-16] MEDS: ALPRAZolam 0.5 MG TABLET PO SCH (16:30)
[2024-04-16 16:52] LABS: Amphetamines+Metham, Urine Neg (Neg); Barbiturates, Urine Neg (Neg); Benzodiazepine, Urine Pos (Neg); Cocaine, Urine Neg (Neg); Fentanyl, Urine Neg (Neg); MDMA (Ecstacy), Urine Neg (Neg); Marijuana, Urine Neg (Neg); Methadone, Urine Neg (Neg); Opiate, Urine Neg (Neg); Phencyclidine, Urine Neg (Neg)
[2024-04-16] MEDS: MICONAZOLE NITRATE POWDER 85 GM EXT PRN (17:22)
[2024-04-16] MEDS: ACETAMINOPHEN 325 MG TAB PO PRN (17:34)
[2024-04-16] MEDS: risperiDONE 0.5 MG TABLET PO SCH (20:41)
[2024-04-17] MEDS: SERTRALINE HCL 100 MG TABLET PO SCH (08:09)
--- NOTE | 2024-04-17 15:58 | Hospitalist Progress Note ---
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 Patient now sleeping soundly. Suspect patient may have been sleep deprived and will sleep for prolonged period of time and hopefully reset and return to more normal behavior pattern. Acute urinary tract infection has been ruled out to this point cultures show no growth, discontinue Rocephin Continue to monitor glucose and managed with insulin Continue Risperdal at in the evening Decrease patient's home Xanax dose since she is currently sleeping, may benefit from trying to titrate off benzodiazepines and utilize other medications to control behaviors Continue antihypertensive medications, blood pressure controlled, heart rate controlled Patient appears to have acute onset behavioral disturbance in the setting of vascular dementia, at this time no other medical condition identified to explain the delirium or acute change in behaviors. Will continue to monitor. Patient and family may need to consider alternate level of care rather than returning home when ready for discharge. Admission and Anticipated Discharge Date Admission Date: April 15, 2024 Subjective Patient restless through the night, now sleeping throughout the morning and early afternoon. Physical Exam Physical Exam: Constitutional: Asleep difficult to arouse HEENT: Mucous membranes dry Lungs: Clear to auscultation, decreased, no wheezes rales or rhonchi CV: S1-S2, regular Abdomen: Soft, nontender, nondistended Extremities: No significant edema Neuro: Unable to assess Psych: Soundly asleep Results & Data Results & Data Vital Signs (Past 12 Hours) Vital Signs Temp Pulse Resp BP Pulse Ox O2 Del Method 04/17/24 13:52 36.6 C 76 18 106/65 93 Room Air 04/17/24 06:58 37.6 C H 84 18 115/63 92 Room Air Diagnostic Findings Reviewed imaging, laboratory and diagnostic studies. Pertinent findings as below. Urine culture no definitive growth Review of outpatient EMR urine culture no significant growth Glucoses reviewed, good control
--- NOTE | 2024-04-17 17:29 | Communication Note ---
Date of Service: April 17, 2024 Patient's daughter now at bedside. Able to give her an update into the diagnosis of vascular dementia with acute behavior disturbance. I also was able to relate why I stopped the antibiotics explaining that both the urine culture done through [facility] showed no growth and the urine culture done here has no growth to date. I explained that giving antibiotics when there is no obvious urinary tract infection can be detrimental. Additional history patient's daughter reports that the patient had not slept for at least 3 nights prior to admission. It was finally this last night the patient started to have hallucinations. She also gives a history very consistent with dementia stating that for a period of time now she has noticed that the patient has gotten quite active in the evening hours. Ready to get up and do things and be active when the daughter wants to go to bed because she has to go to work. This is classic description of "sundowning." This history further confirms my suspicion of above diagnosis. Patient now has been sleeping all day. I suspect she is catching up from her significant sleep deprivation prior to admission. Will have to evaluate patient's mental status and behaviors once she awakens.
[2024-04-17] MEDS: ALPRAZolam 0.25 MG TABLET PO SCH (22:04)
--- NOTE | 2024-04-18 05:50 | Electrocardiogram Report ---
Test Reason : Blood Pressure : */* mmHG Vent. Rate : 66 BPM Atrial Rate : 66 BPM P-R Int : 180 ms QRS Dur : 88 ms QT Int : 424 ms P-R-T Axes : 80 -32 46 degrees QTcB Int : 444 ms Normal sinus rhythm Left axis deviation Minimal voltage criteria for LVH, may be normal variant ( [place] product ) Abnormal ECG When compared with ECG of 02-Dec-2023 01:55, Sinus rhythm has replaced Atrial fibrillation Vent. rate has decreased by 59 bpm Confirmed by Sheldon Dowd ([id number]) on 04/18/2024 5:50:45 AM Referred By: REFERRED SELF Confirmed By: Sheldon Dowd
--- NOTE | 2024-04-18 17:20 | Hospitalist Progress Note ---
Date of Service April 18, 2024 Assessment & Plan (1) 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: (2) Delirium due to medical condition with behavioral disturbance: (3) Delirium superimposed on dementia: (4) Paroxysmal atrial fibrillation: (5) Diabetes mellitus, type II: (6) Hypothyroidism: (7) Generalized anxiety disorder: Plan Vascular dementia with behavioral disturbance --CT head: No acute intracranial abnormality. Chronic small vessel ischemic changes and cerebral volume loss. Medications likely contributing as well UTI ruled out Normal TSH VBG showed no hypercarbia Alprazolam dose decreased to 0.25 mg twice a day Reorient frequently to minimize delirium Mental status seem to be back to baseline Urinary retention Bladder scan as needed Will consider voiding trial, if fails will place Cheung catheter May need follow-up with urology as outpatient Generalized weakness Ambulatory dysfunction Fall precautions Continue PT OT Needs rehab placement Microscopic hematuria Needs follow-up with urology as outpatient Hemoglobin stable Other chronic conditions: Hypertension GAURAV CPAP intolerance A-fib on Eliquis Hyperlipidemia on statin DM II Hypothyroidism Mood disorder Continue home medications as able DVT Px: On Eliquis CODE STATUS Full code Disposition Rehab as able Admission and Anticipated Discharge Date Admission Date: April 17, 2024 Subjective Patient is seen and examined at bedside Noted to have decreased urinary output Mental status seem to be back to baseline Denies any chest pain, dyspnea, nausea, vomiting Admits to have some bladder pressure sensation Updated patient's daughter over the phone Review of Systems Review of Systems: All systems reviewed & are unremarkable except as noted in Subjective Physical Exam Physical Exam: Physical Exam: Vitals signs as noted above General Appearance:Obese, no apparent distress Head: normocephalic, Atraumatic Eyes: normal inspection, EOMI Neck: supple, Trachea midline Respiratory/Chest: Decreased breath sounds, CTA, No accessory muscle use Cardiovascular: S1, S2, No murmur Abdomen/GI:Soft, Non tender, Bowel sounds present Extremities/Musculoskeletal:normal inspection, 1+ edema Neurologic/Psych:AAOX2, grossly no focal neurological deficits Skin: normal color, warm Results & Data Results & Data Vital Signs (Past 12 Hours) Vital Signs Temp Pulse Resp BP BP Pulse Ox O2 Del Method 04/18/24 14:32 36.8 C 67 19 168/86 H 96 Room Air 04/18/24 08:44 76 18 145/64 H 95 Room Air 04/18/24 08:30 Room Air 04/18/24 07:45 36.8 C 63 16 111/71 95 Room Air
[2024-04-19 06:46] LABS: Hematocrit (blood only) 38.2 % (37.0-47.0); Hemoglobin 13.4 g/dl (12.0-16.0); Mean Corpuscular Hemoglobin 32.2 pg (25.0-34.0); Mean Corpuscular Hgb Conc 35.1 g/dL (32.0-36.0); Mean Corpuscular Volume 91.8 fL (80.0-100.0); Mean Platelet Volume 9.8 fL (9.4-12.4); Platelet Count 204 K/uL (130-400); RDW Coefficient of Variation 12.8 % (11.5-14.5); RDW Standard Deviation 43.2 fL (36.4-46.3); Red Blood Count 4.16 M/uL (4.20-5.40); White Blood Count 7.03 K/ul (4.8-10.8)
[2024-04-19 07:00] LABS: BUN Creatinine Ratio 32.6 (10-20); Calcium 8.6 mg/dl (8.6-10.3); Creatinine Clr Calc Pharmacy 28.1 ml/min; Potassium 3.9 mmol/L (3.5-5.1)
[2024-04-19] MEDS: ASPIRIN 81 MG ECTAB PO SCH (08:11)
--- NOTE | 2024-04-19 10:05 | Ultrasound Report ---
ULTRASOUND KIDNEYS AND BLADDER CLINICAL HISTORY: Acute renal insufficiency. COMPARISON STUDY: Abdominal CT dated 12/02/2023. TECHNIQUE: Real-time, grayscale, and color flow sonography of the kidneys and bladder is performed. I mages are reviewed in the transverse and longitudinal planes. FINDINGS: Kidneys: The kidneys demonstrate cortical atrophy. Echotexture there is normal. The right kidney maxx ures 9.9 cm in length and the left kidney measures 10.3 cm in length. There is no hydronephrosis. No shadowing renal calculi are identified. A 1.6 cm cyst is seen in the interpolar left kidney. There i s no sonographic evidence of contour deforming renal mass lesion. No perinephric fluid is identified. Bladder: The bladder is normal in appearance. Bilateral ureteral jets were seen. IMPRESSION: 1. The kidneys demonstrate cortical atrophy and are without hydronephrosis. 2. The bladder is normal as imaged. ACT 112: Negative or not required by law. Electronically signed by: Slick Bragg M.D. 04/19/2024 10:03 AM
[2024-04-19] MEDS: LACTATED RINGER'S 1,000 ML IV SCH (10:20)
[2024-04-19] MEDS ORDERED: CHLORASEPTIC (PHENOL) 1.4% SOLN 180 ML BTL MT PRN (12:09)
--- NOTE | 2024-04-19 13:50 | Hospitalist Progress Note ---
Date of Service April 19, 2024 Assessment & Plan (1) 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: (2) Delirium due to medical condition with behavioral disturbance: (3) Delirium superimposed on dementia: (4) Paroxysmal atrial fibrillation: (5) Diabetes mellitus, type II: (6) Hypothyroidism: (7) Generalized anxiety disorder: Plan Vascular dementia with behavioral disturbance --CT head: No acute intracranial abnormality. Chronic small vessel ischemic changes and cerebral volume loss. Medications likely contributing as well UTI ruled out Normal TSH VBG showed no hypercarbia Alprazolam dose decreased to 0.25 mg twice a day Reorient frequently to minimize delirium Mental status seem to be back to baseline Plan to discharge to rehab facility when accepted Urinary retention Acute kidney injury likely due to above -Renal USD: No signs of obstruction Failed voiding trial Continue Cheung catheter May need follow-up with urology as outpatient Continue gentle IV fluids Monitor renal function Generalized weakness Ambulatory dysfunction Fall precautions Continue PT OT Needs rehab placement Microscopic hematuria Needs follow-up with urology as outpatient Hemoglobin stable Other chronic conditions: Hypertension GAURAV CPAP intolerance A-fib on Eliquis Hyperlipidemia on statin DM II Hypothyroidism Mood disorder Continue home medications as able DVT Px: On Eliquis CODE STATUS Full code Disposition Rehab when accepted Waiting for placement Admission and Anticipated Discharge Date Admission Date: April 17, 2024 Subjective Patient is seen and examined at bedside States having sore throat Offers no other complaints today Mental status back to baseline Continues to have urinary retention Denies any chest pain, dyspnea, nausea, vomiting Review of Systems Review of Systems: All systems reviewed & are unremarkable except as noted in Subjective Physical Exam Physical Exam: Physical Exam: Vitals signs as noted above General Appearance:Obese, no apparent distress Head: normocephalic, Atraumatic Eyes: normal inspection, EOMI Neck: supple, Trachea midline Respiratory/Chest: Decreased breath sounds, CTA, No accessory muscle use Cardiovascular: S1, S2, No murmur Abdomen/GI:Soft, Non tender, Bowel sounds present Extremities/Musculoskeletal:normal inspection, 1+ edema Neurologic/Psych:AAOX2, grossly no focal neurological deficits Skin: normal color, warm Results & Data Results & Data Vital Signs (Past 12 Hours) Vital Signs Temp Pulse Resp BP Pulse Ox O2 Del Method 04/19/24 07:30 36.2 C L 60 16 101/62 96 Room Air 04/19/24 07:15 Room Air Laboratory Results Short CBC 04/19/24 Range/Units 05:38 WBC 7.03 (4.8-10.8) K/ul Hgb 13.4 (12.0-16.0) g/dl Hct 38.2 (37.0-47.0) % Plt Count 204 (130-400) K/uL BMP 04/19/24 05:38 Sodium 134 L Potassium 3.9 Chloride 102 Carbon Dioxide 22 BUN 57 H Creatinine 1.75 H Glucose 125 H Calcium 8.6
[2024-04-20 07:05] LABS: BUN Creatinine Ratio 38.6 (10-20); Calcium 8.6 mg/dl (8.6-10.3); Creatinine Clr Calc Pharmacy 48.7 ml/min; Potassium 3.6 mmol/L (3.5-5.1)
--- NOTE | 2024-04-20 14:42 | Hospitalist Progress Note ---
Date of Service April 20, 2024 Assessment & Plan (1) 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: (2) Delirium due to medical condition with behavioral disturbance: (3) Delirium superimposed on dementia: (4) Paroxysmal atrial fibrillation: (5) Diabetes mellitus, type II: (6) Hypothyroidism: (7) Generalized anxiety disorder: Plan Ms. Calvert is a medical history significant for chronic diastolic heart failure (EF 60 to 65%, TTE 2023), A-fib on Eliquis, hypertension, hyperlipidemia, statin intolerance, GAURAV CPAP intolerance, DM2 on oral medications, hypothyroidism, migraine, anxiety/mood disorder, past tobacco abuse who was admitted for acute encephlopathy. UA reviewed from OSH 04/15 with large bacteria 26-50, blood, protein, and leukocyte esterase. Patient given ctx initially in ED. Follow up urine seemingly clean, however, repeat UA on 04/18 ordered due to acute urinary retention. UA very active on repeat. Concern for undertreated uti as abx stopped given "poor treatment" #Acute encephalopathy Thought there is signs of age related changes on CT, low suspicion for overt vascular dementia; high suspicion given changes in UA over 3 days that undertreated UTI likely etiology --CT head: No acute intracranial abnormality. Chronic small vessel ischemic changes and cerebral volume loss. Medications likely contributing as well UTI ruled out Normal TSH VBG showed no hypercarbia Alprazolam dose decreased to 0.25 mg twice a day Mental status is not at baseline per daughter Start CTX #Acute cystitis #Urinary retention #Abnormal UA #Acute kidney injury likely due to above -Renal USD: No signs of obstruction Failed voiding trial Continue Cheung catheter,, discontinue if improvement in symptoms with abx as above suspect hematuria 2/2 cystits #Generalized weakness #Ambulatory dysfunction Fall precautions Continue PT OT Needs rehab placement Other chronic conditions: Hypertension GAURAV CPAP intolerance A-fib on Eliquis Hyperlipidemia on statin DM II Hypothyroidism Mood disorder Continue home medications as able DVT Px: On Eliquis CODE STATUS Full code Disposition Rehab when accepted Waiting for placement Admission and Anticipated Discharge Date Admission Date: April 17, 2024 Subjective NAEO Patient communicative, but not able to answer questions well States "no one knows [she] is in here" Denies fevers chills chest pain or other acute concerns Results & Data Results & Data Vital Signs (Past 12 Hours) Vital Signs Temp Pulse Resp BP Pulse Ox O2 Del Method 10/27/24 07:57 36.7 C 65 18 156/74 H 95 Room Air 04/20/24 07:20 Room Air Laboratory Results [facility] 04/20/24 06:18 Sodium 138 Potassium 3.6 Chloride 107 Carbon Dioxide 24 BUN 39 H Creatinine 1.01 D Glucose 142 H Calcium 8.6 Medications Administered [facility] 04/20/24 06:18 Sodium 138 Potassium 3.6 Chloride 107 Carbon Dioxide 24 BUN 39 H Creatinine 1.01 D Glucose 142 H Calcium 8.6
[2024-04-20] MEDS: cefTRIAXone SODIUM 1,000 MG/50 ML BAG IV SCH (15:27)
[2024-04-21 06:33] LABS: Hematocrit (blood only) 36.6 % (37.0-47.0); Mean Corpuscular Hemoglobin 32.1 pg (25.0-34.0); Mean Corpuscular Hgb Conc 35.5 g/dL (32.0-36.0); Mean Corpuscular Volume 90.4 fL (80.0-100.0); Mean Platelet Volume 9.8 fL (9.4-12.4); Platelet Count 207 K/uL (130-400); RDW Coefficient of Variation 12.3 % (11.5-14.5); RDW Standard Deviation 40.8 fL (36.4-46.3); Red Blood Count 4.05 M/uL (4.20-5.40); White Blood Count 8.04 K/ul (4.8-10.8)
[2024-04-21 06:48] LABS: BUN Creatinine Ratio 32.1 (10-20); Calcium 8.8 mg/dl (8.6-10.3); Creatinine Clr Calc Pharmacy 60.7 ml/min; Potassium 3.8 mmol/L (3.5-5.1)
[2024-04-21 14:03] LABS: 7-Aminoclonaz, Confirm NEGATIVE ng/mL (<25); Hydro-Alp Ur, GC/MS 240 ng/mL (<25); Hydroxyethylflurazepam, Conf NEGATIVE ng/mL (<50); Hydroxymidazolam Ur, GC/MS NEGATIVE ng/mL (<50); Hydroxytriazolam NEGATIVE ng/mL (<50); Lorazepam, Ur GC/MS NEGATIVE ng/mL (<50); Nordiazepam, Confirm NEGATIVE ng/mL (<50); Oxazepam Ur, GC/MS NEGATIVE ng/mL (<50); Temazepam, Confirm NEGATIVE ng/mL (<50)
[2024-04-21 15:55] LABS: Appearance Urine Cloudy (Clear); Bacteria Urine Automated None Seen (None Seen); Bilirubin Urine 1+ (Negative); Blood Urine 3+ (Negative); Cast Urine Automated 0-2 /lpf (0-2); Color Urine Dark Yellow; Glucose Urine UA Negative (Negative); Ketones Urine Trace (Negative); Leukocyte Esterase Urine 1+ (Negative); Nitrite Urine Negative (Negative); Protein Urine 1+ (Negative); RBC Urine Automated >20 /hpf (0-2); Specific Gravity Urine 1.027 (1.000-1.030); Urobilinogen Urine Negative (Negative); WBC Urine Automated 0-5 /hpf (0-5); pH Urine 5.5 (4.5-7.5)
--- NOTE | 2024-04-21 16:54 | Hospitalist Progress Note ---
Date of Service April 21, 2024 Assessment & Plan (1) 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: (2) Delirium due to medical condition with behavioral disturbance: (3) Delirium superimposed on dementia: (4) Paroxysmal atrial fibrillation: (5) Diabetes mellitus, type II: (6) Hypothyroidism: (7) Generalized anxiety disorder: Plan Ms. Calvert is a medical history significant for chronic diastolic heart failure (EF 60 to 65%, TTE 2023), A-fib on Eliquis, hypertension, hyperlipidemia, statin intolerance, GAURAV CPAP intolerance, DM2 on oral medications, hypothyroidism, migraine, anxiety/mood disorder, past tobacco abuse who was admitted for acute encephalopathy. UA reviewed from OSH 04/15 with large bacteria 26-50, blood, protein, and leukocyte esterase. Patient given ctx initially in ED. Follow up urine seemingly clean, however, repeat UA on 04/18 ordered due to acute urinary retention. UA very active on repeat. Concern for undertreated uti as abx stopped given "poor treatment" Patient with interval improvement, plan for void trial tomorrow #Acute encephalopathy Thought there is signs of age related changes on CT, low suspicion for overt vascular dementia; high suspicion given changes in UA over 3 days that undertreated UTI likely etiology --CT head: No acute intracranial abnormality. Chronic small vessel ischemic changes and cerebral volume loss. Medications likely contributing as well High suspicion that uti present Normal TSH VBG showed no hypercarbia Alprazolam dose decreased to 0.25 mg twice a day Mental status is not at baseline per daughter Continue CTX #Acute cystitis #Urinary retention #Abnormal UA #Acute kidney injury likely due to above -Renal USD: No signs of obstruction Failed voiding trial Continue Cheung catheter,, discontinue if improvement in symptoms with abx as above suspect hematuria 2/2 cystis #Generalized weakness #Ambulatory dysfunction Fall precautions Continue PT OT Needs rehab placement Other chronic conditions: Hypertension GAURAV CPAP intolerance A-fib on Eliquis Hyperlipidemia on statin DM II Hypothyroidism Mood disorder Continue home medications as able DVT Px: On Eliquis CODE STATUS Full code Disposition Rehab when accepted Waiting for placement Admission and Anticipated Discharge Date Admission Date: April 17, 2024 Subjective NAEO Patient more interactive and appropriate today--answering questions appropriately and content congruent with conversation Denies any new symptoms at this time Able to sit in bedside chair today Physical Exam Constitutional: WD/WN, vitals as above alert to self and place Respiratory: normal respiratory effort, lungs clear to auscultation Cardiovascular: RRR, no murmur, no edema Gastrointestinal (Abdomen): normal bowel sounds, soft, nontender, no hepatosplenomegaly Results & Data Results & Data Vital Signs (Past 12 Hours) Vital Signs Temp Pulse Resp BP Pulse Ox O2 Del Method 04/21/24 14:09 95 04/21/24 14:01 36.6 C 71 16 137/70 95 Room Air 04/21/24 06:51 36.5 C 67 16 166/82 H 94 Room Air Laboratory Results Short CBC 04/21/24 Range/Units 05:22 WBC 8.04 (4.8-10.8) K/ul Hgb 13.0 (12.0-16.0) g/dl Hct 36.6 L (37.0-47.0) % Plt Count 207 (130-400) K/uL BMP 04/21/24 05:22 Sodium 138 Potassium 3.8 Chloride 106 Carbon Dioxide 25 BUN 26 H Creatinine 0.81 Glucose 133 H Calcium 8.8 Urine 04/21/24 Range/Units 15:20 Urine Color Dark Yellow Urine Appearance Cloudy A (Clear) Urine pH 5.5 (4.5-7.5) Ur Specific [place] 1.027 (1.000-1.030) Urine Protein 1+ H (Negative) Urine Glucose (UA) Negative (Negative) Medications Administered Home Medications Medication Instructions Recorded Confirmed Last Taken irbesartan 150 mg tablet 150 mg PO DAILY 02/12/19 04/15/24 12/01/23 albuterol sulfate 90 mcg/actuation 2 puff inhalation Q6H PRN 06/12/19 04/15/24 Unknown aerosol inhaler Shortness Of Breath Or Wheezing #1 g polyethylene glycol 3350 17 gram 17 gm PO HS PRN Constipation 12/11/19 04/15/24 Unknown oral powder packet (Miralax) sertraline 100 mg tablet 100 - 200 mg PO DAILY 12/11/19 04/15/24 12/01/23 acetaminophen 650 mg 650 mg PO Q8H PRN pain 12/13/22 04/15/24 Unknown tablet,extended release cyanocobalamin (vitamin B-12) 1,000 mcg IM MONTHLY 12/13/22 04/15/24 11/02/23 1,000 mcg/mL injection kit dulaglutide 0.75 mg/0.5 mL 0.75 mg subcut WK 12/13/22 04/15/24 11/26/23 subcutaneous pen injector ([facility]) fluticasone propionate 50 2 spray intranasal DAILY 12/13/22 04/15/24 12/01/23 mcg/actuation nasal spray,suspension levothyroxine 150 mcg tablet 150 mcg PO DAILYBB 12/13/22 04/15/24 12/01/23 loratadine 10 mg tablet 10 mg PO DAILY 12/13/22 04/15/24 12/01/23 Relaxium Sleep Suppliment 1 - 2 tab PO HS PRN Sleep 12/02/23 12/02/23 Unknown alprazolam 0.5 mg tablet 0.5 mg PO BID 12/02/23 04/15/24 12/01/23 docusate sodium 100 mg capsule 200 mg PO HS PRN Constipation 12/02/23 04/15/24 Unknown loteprednol etabonate 0.5 % eye 1 drp OPB BID 12/02/23 04/15/24 12/01/23 drops,suspension olopatadine 0.1 % eye drops 1 drp OPB BID 12/02/23 04/15/24 12/01/23 ondansetron HCl 4 mg tablet 4 mg PO Q6H PRN NAUSEA/VOMITING 12/02/23 04/15/24 Unknown pantoprazole 20 mg tablet,delayed 20 mg PO BID 12/02/23 04/15/24 12/01/23 release apixaban 5 mg tablet (Eliquis) 5 mg PO BID #60 tabs 12/07/23 04/15/24 Unknown metoprolol succinate 25 mg 75 mg (3 x 25 mg) PO BID #180 tabs 12/07/23 04/15/24 Unknown tablet,extended release 24 hr ezetimibe 10 mg tablet 10 mg PO DAILY 04/15/24 04/15/24 Unknown hydrochlorothiazide 12.5 mg tablet 12.5 mg PO DAILY 04/15/24 04/15/24 Unknown rosuvastatin 10 mg tablet 10 mg PO DAILY 04/15/24 04/15/24 Unknown aspirin 81 mg capsule 81 mg PO DAILY 04/18/24 04/18/24 Unknown Active Medications Generic Name Dose Route Start Last Admin Trade Name Freq PRN Reason Stop Dose Admin Acetaminophen 650 mg 04/15/24 20:32 04/18/24 22:55 Acetaminophen 325 Mg Tab PO 05/15/24 20:31 650 mg QID PRN Administration pain/fever Alprazolam 0.25 mg 04/17/24 21:00 04/21/24 08:10 Alprazolam 0.25 Mg Tablet PO 05/17/24 20:59 0.25 mg BID KATHRYN Administration Apixaban 5 mg 04/15/24 21:00 04/21/24 08:02 Apixaban 5 Mg Tablet PO 05/15/24 20:59 5 mg BID KATHRYN Administration Aspirin 81 mg 04/19/24 09:00 04/21/24 08:02 Aspirin 81 Mg Ectab PO 05/19/24 08:59 81 mg DAILY KATHRYN Administration Ezetimibe 10 mg 04/16/24 09:00 04/21/24 08:03 Ezetimibe 10 Mg Tab PO 05/16/24 08:59 10 mg DAILY KATHRYN Administration Fluticasone Propionate 2 sprays 04/16/24 09:00 04/21/24 08:03 Fluticasone Propionate Na Spr 16 Gm Btl NA 05/16/24 08:59 2 sprays DAILY KATHRYN Administration Ceftriaxone Sodium 1,000 mg in 50 mls @ 100 mls/hr 04/20/24 14:45 04/21/24 15:16 Rocephin IV 04/25/24 14:44 Infused Q24H KATHRYN Infusion Insulin Aspart 0 units 04/15/24 22:54 04/21/24 12:35 Insulin Aspart Per Unit Charge SC 05/15/24 22:53 3 units ACHS KATHRYN Administration Levothyroxine Sodium 150 mcg 04/16/24 06:30 04/21/24 06:14 Levothyroxine Sodium 150 Mcg Tablet PO 05/16/24 06:29 150 mcg DAILYBB KATHRYN Administration Losartan Potassium 50 mg 04/16/24 09:00 04/19/24 08:11 Losartan Potassium 50 Mg Tab PO 05/16/24 08:59 50 mg DAILY KATHRYN Administration Metoprolol Succinate 75 mg 04/16/24 09:00 04/21/24 08:04 Metoprolol Succ 25mg Ext Rel Tab PO 05/16/24 08:59 75 mg BID KATHRYN Administration Miconazole Nitrate 1 appln 04/16/24 12:55 10/24/24 05:56 Miconazole Nitrate Powder 85 Gm EXT 05/16/24 12:54 1 appln PRN PRN Administration Affected Skin Folds Pantoprazole Sodium 40 mg 04/15/24 21:00 04/21/24 08:04 Pantoprazole 40 Mg Tab PO 05/15/24 20:59 40 mg BID KATHRYN Administration Rosuvastatin Calcium 10 mg 04/16/24 09:00 04/21/24 08:04 Rosuvastatin Calcium 10 Mg Tab PO 05/16/24 08:59 10 mg DAILY KATHRYN Administration Sertraline HCl 100 mg 04/17/24 09:00 04/21/24 08:05 Sertraline Hcl 100 Mg Tablet PO 05/17/24 08:59 100 mg DAILY KATHRYN Administration
[2024-04-22] MEDS: POLYETHYLENE (MIRALAX) 17 GM PACK PO STA (09:47)
[2024-04-22] MEDS ORDERED: DOCUSATE SODIUM 100 MG CAP PO ONE (15:07)
--- NOTE | 2024-04-22 15:11 | Hospitalist Progress Note ---
Date of Service April 22, 2024 Assessment & Plan (1) 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: (2) Delirium due to medical condition with behavioral disturbance: (3) Delirium superimposed on dementia: (4) Paroxysmal atrial fibrillation: (5) Diabetes mellitus, type II: (6) Hypothyroidism: (7) Generalized anxiety disorder: Plan Ms. Calvert is a medical history significant for chronic diastolic heart failure (EF 60 to 65%, TTE 2023), A-fib on Eliquis, hypertension, hyperlipidemia, statin intolerance, GAURAV CPAP intolerance, DM2 on oral medications, hypothyroidism, migraine, anxiety/mood disorder, past tobacco abuse who was admitted for acute encephalopathy. UA reviewed from OSH 04/15 with large bacteria 26-50, blood, protein, and leukocyte esterase. Patient given ctx initially in ED. Follow up urine seemingly clean, however, repeat UA on 04/18 ordered due to acute urinary retention. UA very active on repeat. Concern for undertreated uti as abx stopped and patient function deteriorated. 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 Bowel movement today. Still a little weak but more at baseline-- not approved by [facility]. Plan for discharge tomorrow 5pm with po abx #Acute encephalopathy Thought there is signs of age related changes on CT, low suspicion for overt vascular dementia; high suspicion given changes in UA over 3 days that undertreated UTI likely etiology --CT head: No acute intracranial abnormality. Chronic small vessel ischemic changes and cerebral volume loss. Medications likely contributing as well High suspicion that uti present Normal TSH VBG showed no hypercarbia Alprazolam dose decreased to 0.25 mg twice a day Mental status is not at baseline per daughter Continue CTX -Plan for dispo tomorrow to home with as patient is notably near baseline and starting to move at baseline #Acute cystitis #Urinary retention #Abnormal UA #Acute kidney injury likely due to above -Renal USD: No signs of obstruction successful voiding trial today suspect hematuria 2/2 cystis continue CTX, day 08/29 #Generalized weakness #Ambulatory dysfunction Fall precautions Continue PT OT--improving ambulating in halls with 100ft x 2 with WC plan for home health tomorrow, CM aware Other chronic conditions: Hypertension GAURAV CPAP intolerance A-fib on Eliquis Hyperlipidemia on statin DM II Hypothyroidism Mood disorder Continue home medications as able DVT Px: On Eliquis CODE STATUS Full code Disposition dispo tomorrow 5pm with HH Admission and Anticipated Discharge Date Admission Date: April 17, 2024 Subjective NAEO Patient remembered provider and more engaged today--reported excitement about ambulating in [place] Denies any new concerns outside of chronic pain in knees spoke to gretel: will see how patient does overnight and if continued/stable improvement will discharge to home with HH Physical Exam Constitutional: WD/WN, vitals as above Respiratory: normal respiratory effort, lungs clear to auscultation Cardiovascular: RRR, no murmur, no edema Gastrointestinal (Abdomen): normal bowel sounds, soft, nontender, no hepatosplenomegaly Results & Data Results & Data Vital Signs (Past 12 Hours) Vital Signs Temp Pulse Resp BP Pulse Ox O2 Del Method 04/22/24 14:00 36.3 C L 62 16 111/70 95 Room Air 04/22/24 10:25 64 18 123/68 96 Room Air 04/22/24 08:15 64 18 165/78 H 94 Room Air 04/22/24 08:00 Room Air 04/22/24 06:58 36.6 C 65 16 180/77 H 94 Room Air Laboratory Results Urine 04/21/24 Range/Units 15:20 Urine Color Dark Yellow Urine Appearance Cloudy A (Clear) Urine pH 5.5 (4.5-7.5) Ur Specific [place] 1.027 (1.000-1.030) Urine Protein 1+ H (Negative) Urine Glucose (UA) Negative (Negative) Medications Administered Home Medications Medication Instructions Recorded Confirmed Last Taken irbesartan 150 mg tablet 150 mg PO DAILY 02/12/19 04/15/24 12/01/23 albuterol sulfate 90 mcg/actuation 2 puff inhalation Q6H PRN 06/12/19 04/15/24 Unknown aerosol inhaler Shortness Of Breath Or Wheezing #1 g polyethylene glycol 3350 17 gram 17 gm PO HS PRN Constipation 12/11/19 04/15/24 Unknown oral powder packet (Miralax) sertraline 100 mg tablet 100 - 200 mg PO DAILY 12/11/19 04/15/24 12/01/23 acetaminophen 650 mg 650 mg PO Q8H PRN pain 12/13/22 04/15/24 Unknown tablet,extended release cyanocobalamin (vitamin B-12) 1,000 mcg IM MONTHLY 12/13/22 04/15/24 11/02/23 1,000 mcg/mL injection kit dulaglutide 0.75 mg/0.5 mL 0.75 mg subcut WK 12/13/22 04/15/24 11/26/23 subcutaneous pen injector ([facility]) fluticasone propionate 50 2 spray intranasal DAILY 12/13/22 04/15/24 12/01/23 mcg/actuation nasal spray,suspension levothyroxine 150 mcg tablet 150 mcg PO DAILYBB 12/13/22 04/15/24 12/01/23 loratadine 10 mg tablet 10 mg PO DAILY 12/13/22 04/15/24 12/01/23 Relaxium Sleep Suppliment 1 - 2 tab PO HS PRN Sleep 12/02/23 12/02/23 Unknown alprazolam 0.5 mg tablet 0.5 mg PO BID 12/02/23 04/15/24 12/01/23 docusate sodium 100 mg capsule 200 mg PO HS PRN Constipation 12/02/23 04/15/24 Unknown loteprednol etabonate 0.5 % eye 1 drp OPB BID 12/02/23 04/15/24 12/01/23 drops,suspension olopatadine 0.1 % eye drops 1 drp OPB BID 12/02/23 04/15/24 12/01/23 ondansetron HCl 4 mg tablet 4 mg PO Q6H PRN NAUSEA/VOMITING 12/02/23 04/15/24 Unknown pantoprazole 20 mg tablet,delayed 20 mg PO BID 12/02/23 04/15/24 12/01/23 release apixaban 5 mg tablet (Eliquis) 5 mg PO BID #60 tabs 12/07/23 04/15/24 Unknown metoprolol succinate 25 mg 75 mg (3 x 25 mg) PO BID #180 tabs 12/07/23 04/15/24 Unknown tablet,extended release 24 hr ezetimibe 10 mg tablet 10 mg PO DAILY 04/15/24 04/15/24 Unknown hydrochlorothiazide 12.5 mg tablet 12.5 mg PO DAILY 04/15/24 04/15/24 Unknown rosuvastatin 10 mg tablet 10 mg PO DAILY 04/15/24 04/15/24 Unknown aspirin 81 mg capsule 81 mg PO DAILY 04/18/24 04/18/24 Unknown Active Medications Generic Name Dose Route Start Last Admin Trade Name Matthew PRN Reason Stop Dose Admin Acetaminophen 650 mg 04/15/24 20:32 04/22/24 09:47 Acetaminophen 325 Mg Tab PO 05/15/24 20:31 650 mg QID PRN Administration pain/fever Alprazolam 0.25 mg 04/17/24 21:00 04/22/24 08:24 Alprazolam 0.25 Mg Tablet PO 05/17/24 20:59 0.25 mg BID KATHRYN Administration Apixaban 5 mg 04/15/24 21:00 04/22/24 08:25 Apixaban 5 Mg Tablet PO 05/15/24 20:59 5 mg BID KATHRYN Administration Aspirin 81 mg 04/19/24 09:00 04/22/24 08:25 Aspirin 81 Mg Ectab PO 05/19/24 08:59 81 mg DAILY KATHRYN Administration Ezetimibe 10 mg 04/16/24 09:00 04/22/24 08:25 Ezetimibe 10 Mg Tab PO 05/16/24 08:59 10 mg DAILY KATHRYN Administration Fluticasone Propionate 2 sprays 04/16/24 09:00 04/22/24 08:25 Fluticasone Propionate Na Spr 16 Gm Btl NA 05/16/24 08:59 2 sprays DAILY KATHRYN Administration Ceftriaxone Sodium 1,000 mg in 50 mls @ 100 mls/hr 04/20/24 14:45 04/22/24 14:21 Rocephin IV 04/25/24 14:44 Infused Q24H KATHRYN Infusion Insulin Aspart 0 units 04/15/24 22:54 04/22/24 12:24 Insulin Aspart Per Unit Charge SC 05/15/24 22:53 3 units ACHS KATHRYN Administration Levothyroxine Sodium 150 mcg 04/16/24 06:30 04/22/24 05:24 Levothyroxine Sodium 150 Mcg Tablet PO 05/16/24 06:29 150 mcg DAILYBB KATHRYN Administration Losartan Potassium 50 mg 04/16/24 09:00 04/22/24 10:30 Losartan Potassium 50 Mg Tab PO 05/16/24 08:59 50 mg DAILY KATHRYN Administration Metoprolol Succinate 75 mg 04/16/24 09:00 04/22/24 08:25 Metoprolol Succ 25mg Ext Rel Tab PO 05/16/24 08:59 75 mg BID KATHRYN Administration Miconazole Nitrate 1 appln 04/16/24 12:55 04/17/24 05:56 Miconazole Nitrate Powder 85 Gm EXT 05/16/24 12:54 1 appln PRN PRN Administration Affected Skin Folds Pantoprazole Sodium 40 mg 04/15/24 21:00 04/22/24 08:25 Pantoprazole 40 Mg Tab PO 05/15/24 20:59 40 mg BID KATHRYN Administration Rosuvastatin Calcium 10 mg 04/16/24 09:00 04/22/24 08:26 Rosuvastatin Calcium 10 Mg Tab PO 05/16/24 08:59 10 mg DAILY KATHRYN Administration Sertraline HCl 100 mg 04/17/24 09:00 04/22/24 08:25 Sertraline Hcl 100 Mg Tablet PO 05/17/24 08:59 100 mg DAILY KATHRYN Administration
[2024-04-22 19:30] VITALS: RESP 18
[2024-04-23 08:32] LABS: BUN Creatinine Ratio 28.9 (10-20); Calcium 8.7 mg/dl (8.6-10.3); Creatinine Clr Calc Pharmacy 53.6 ml/min; Potassium 4.1 mmol/L (3.5-5.1)
--- NOTE | 2024-04-23 12:57 | Hospitalist Progress Note ---
Date of Service April 23, 2024 Assessment & Plan (1) 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: (2) Delirium due to medical condition with behavioral disturbance: (3) Delirium superimposed on dementia: (4) Paroxysmal atrial fibrillation: (5) Diabetes mellitus, type II: (6) Hypothyroidism: (7) Generalized anxiety disorder: Plan Ms. Calvert is a medical history significant for chronic diastolic heart failure (EF 60 to 65%, TTE 2023), A-fib on Eliquis, hypertension, hyperlipidemia, statin intolerance, GAURAV CPAP intolerance, DM2 on oral medications, hypothyroidism, migraine, anxiety/mood disorder, past tobacco abuse who was admitted for acute encephalopathy. Acute encephalopathy Likely due to UTI/medications --CT head: No acute intracranial abnormality. Chronic small vessel ischemic changes and cerebral volume loss. Medications likely contributing as well Normal TSH VBG showed no hypercarbia Alprazolam dose decreased to 0.25 mg twice a day Mental status seem to be back to baseline Reorient frequently to minimize delirium Plan to be discharged home today Acute cystitis Urinary retention Abnormal UA Acute kidney injury likely due to above -Renal USD: No signs of obstruction successful voiding trial suspect hematuria 2/2 cystis continue CTX, day 4/ Transition to oral antibiotics on discharge to complete the course Generalized weakness Ambulatory dysfunction Fall precautions Continue PT OT--improving ambulating in halls with 100ft x 2 with WC Plan to discharge home with home health as requested by patient/family Other chronic conditions: Hypertension GAURAV CPAP intolerance A-fib on Eliquis Hyperlipidemia on statin DM II Hypothyroidism Mood disorder Continue home medications as able DVT Px: On Eliquis CODE STATUS Full code Disposition Home with home health Admission and Anticipated Discharge Date Admission Date: April 17, 2024 Subjective Patient is seen and examined at bedside Sitting in chair during my encounter States feeling well today Offers no new complaints Updated patient's daughter over the phone Plan to be discharged home today Review of Systems Review of Systems: All systems reviewed & are unremarkable except as noted in Subjective Physical Exam Physical Exam: Physical Exam: Vitals signs as noted above General Appearance:Obese, no apparent distress Head: normocephalic, Atraumatic Eyes: normal inspection, EOMI Neck: supple, Trachea midline Respiratory/Chest: Decreased breath sounds, CTA, No accessory muscle use Cardiovascular: S1, S2, No murmur Abdomen/GI:Soft, Non tender, Bowel sounds present Extremities/Musculoskeletal:normal inspection, 1+ edema Neurologic/Psych:AAOX2, grossly no focal neurological deficits Skin: normal color, warm Results & Data Results & Data Vital Signs (Past 12 Hours) Vital Signs Temp Pulse Resp BP Pulse Ox O2 Del Method 04/23/24 07:44 36.6 C 61 18 164/78 H 94 Room Air Laboratory Results [facility] 04/23/24 07:25 Sodium 139 Potassium 4.1 Chloride 107 Carbon Dioxide 26 BUN 26 H Creatinine 0.90 Glucose 117 H Calcium 8.7
--- NOTE | 2024-04-23 13:07 | Discharge Summary ---
Date of Service April 23, 2024 Admission HPI Per Admitting Provider History obtained from patient, family, and records. Patient is a fair historian. Medical history significant for chronic diastolic heart failure (EF 60 to 65%, TTE 2023), A-fib on Eliquis, hypertension, hyperlipidemia, statin intolerance, GAURAV CPAP intolerance, DM2 on oral medications, hypothyroidism, migraine, anxiety/mood disorder, past tobacco abuse. Last confinement November 2023 for transaminitis and possible UTI. Patient noted to be confused by family since yesterday. Patient talking to her sister who she thinks is in the room with her as per daughter. Today she was seeing cats that they did not have at home. Patient denies headache, chest pain, SOB, abdominal pain. No new medications. SBP 190s upon arrival at the ER. Medical History as above Surgical History : Cataract surgeries, appendectomy, right oophorectomy, tonsillectomy/adenectomy, knee surgery Family History : Colon cancer, heart disease, lung cancer, stroke Personal/Social history : Past tobacco abuse, no EtOH intake, retired from long term work. Admission Exam Per Admitting Provider GENERAL: Oriented to year, obese, slightly uncomfortable, no respiratory distress SKIN: Normal color, warm HEENT: [place] palpebral conjunctivae, no ptosis, dry buccal mucosa NECK : Supple, no tenderness CHEST : Decreased breath sounds, no tenderness HEART : RRR, no obvious murmurs ABDOMEN: Some distention, nontender EXTREMITIES : Minimal LE swelling, no LE tenderness, no other conspicuous deformities noted NEUROLOGIC : Oriented to year , no facial asymmetry, gait and stance not assessed Principal Diagnosis Acute metabolic encephalopathy Urinary tract infection Urinary retention Discharge Data Allergies Allergy/AdvReac Type Severity Reaction Status Date / Time Iodinated Contrast Media Allergy Intermediate HIVES Verified 04/15/24 20:09 iodine Allergy Intermediate Hives Verified 04/15/24 20:09 latex Allergy Intermediate LOCAL SKIN Verified 04/15/24 20:09 IRRITATION lidocaine Allergy Intermediate lidocaine Verified 04/15/24 20:09 patch-skin red,hot flushed feeling nitrofurantoin Allergy Mild RASH Verified 04/15/24 20:09 metformin Allergy Unknown ON Verified 04/15/24 20:09 [facility] codeine AdvReac Intermediate N&V Verified 04/15/24 20:09 propoxyphene AdvReac Intermediate NAUSEA AND Verified 04/15/24 20:09 VOMITING Hjvfzkh-YKR-VtM Reductase AdvReac Intermediate LEG CRAMPS Verified 04/15/24 20:09 Inhibitor [Vfhorzs-Qef-Zlo Reductase Inhibitor] Consultations 04/15/24 19:42 ED Decision to Admit Stat Procedures Performed Laboratory Results WBC 8.04 K/ul (4.8-10.8) 04/21/24 05:22 RBC 4.05 M/uL (4.20-5.40) L 04/21/24 05:22 Hgb 13.0 g/dl (12.0-16.0) 04/21/24 05:22 Hct 36.6 % (37.0-47.0) L 04/21/24 05:22 MCV 90.4 fL (80.0-100.0) 04/21/24 05:22 MCH 32.1 pg (25.0-34.0) 04/21/24 05:22 MCHC 35.5 g/dL (32.0-36.0) 04/21/24 05:22 RDW Std Deviation 40.8 fL (36.4-46.3) 04/21/24 05:22 RDW Coeff of Anne 12.3 % (11.5-14.5) 04/21/24 05:22 Plt Count 207 K/uL (130-400) 04/21/24 05:22 MPV 9.8 fL (9.4-12.4) 04/21/24 05:22 Immature Gran % (Auto) 1.5 % 04/15/24 17:34 Neut % (Auto) 65.9 % 04/15/24 17:34 Lymph % (Auto) 20.0 % 04/15/24 17:34 Becker % (Auto) 7.5 % 04/15/24 17:34 Eos % (Auto) 4.7 % 04/15/24 17:34 Baso % (Auto) 0.4 % 04/15/24 17:34 Neut # (Auto) 5.62 K/uL (1.40-6.50) 04/15/24 17:34 Lymph # (Auto) 1.70 K/uL (1.20-3.40) 04/15/24 17:34 Becker # (Auto) 0.64 K/uL (0.11-0.59) H 04/15/24 17:34 Eos # (Auto) 0.40 K/uL (0.00-0.50) 04/15/24 17:34 Baso # (Auto) 0.03 K/uL (0.00-0.20) 04/15/24 17:34 Immature Gran # (Auto) 0.13 K/uL (0.01-0.20) 04/15/24 17:34 PT 11.2 Seconds (9.0-12.0) 04/15/24 17:34 INR 1.0 (0.9-1.1) 04/15/24 17:34 VBG pH 7.41 (7.36-7.41) 04/15/24 18:46 VBG pCO2 46 mmHg (38-50) 04/15/24 18:46 VBG pO2 40 mmHg 04/15/24 18:46 VBG HCO3 29 mmol/L 04/15/24 18:46 VBG O2 Saturation 70.4 % 04/15/24 18:46 VBG Base Excess 3.8 mEq/L 04/15/24 18:46 Sodium 139 mmol/L (136-145) 04/23/24 07:25 Potassium 4.1 mmol/L (3.5-5.1) 04/23/24 07:25 Chloride 107 mmol/L (98-107) 04/23/24 07:25 Carbon Dioxide 26 mmol/L (21-32) 04/23/24 07:25 Anion Gap 6 (3-11) 04/23/24 07:25 BUN 26 mg/dl (6-23) H 04/23/24 07:25 Creatinine 0.90 mg/dl (0.6-1.2) 04/23/24 07:25 Est Cr Clr Drug Dosing 53.6 ml/min 04/23/24 07:25 eGFR 64.63 04/23/24 07:25 BUN/Creatinine Ratio 28.9 (10-20) H 04/23/24 07:25 Glucose 117 mg/dl (70-99(Fasting)) H 04/23/24 07:25 POC Glucose 180 mg/dl (70-99) H 04/23/24 11:37 Calcium 8.7 mg/dl (8.6-10.3) 04/23/24 07:25 Magnesium 2.3 mg/dl (1.7-2.4) 04/15/24 17:34 Total Bilirubin 0.7 mg/dl (0.2-1.0) 04/15/24 17:34 AST 17 U/L (13-39) 04/15/24 17:34 ALT 14 U/L (7-52) 04/15/24 17:34 Alkaline Phosphatase 91 U/L (34-104) 04/15/24 17:34 Ammonia 26.0 umol/L (18-72) 04/15/24 21:16 Troponin I High Sens 6.8 pg/ml (0-14) 04/15/24 17:34 B-Natriuretic Peptide 138 pg/ml (0-100) H 04/15/24 18:47 Total Protein 7.4 gm/dl (6.0-8.3) 04/15/24 17:34 Albumin 4.0 gm/dl (3.4-5.0) 04/15/24 17:34 Globulin 3.4 gm/dl (2.5-4.0) 04/15/24 17:34 Albumin/Globulin Ratio 1.2 (0.9-2) 04/15/24 17:34 Lipase 28 U/L (11-82) 04/15/24 17:34 TSH 4.212 uIu/ml (0.300-4.500) 04/15/24 17:34 Urine Color Dark Yellow 04/21/24 15:20 Urine Appearance Cloudy (Clear) A 04/21/24 15:20 Urine pH 5.5 (4.5-7.5) 04/21/24 15:20 Ur Specific [place] 1.027 (1.000-1.030) 04/21/24 15:20 Urine Protein 1+ (Negative) H 04/21/24 15:20 Urine Glucose (UA) Negative (Negative) 04/21/24 15:20 Urine Ketones Trace (Negative) H 04/21/24 15:20 Urine Blood 3+ (Negative) H 04/21/24 15:20 Urine Nitrite Negative (Negative) 04/21/24 15:20 Urine Bilirubin 1+ (Negative) H 04/21/24 15:20 Urine Urobilinogen Negative (Negative) 04/21/24 15:20 Ur Leukocyte Esterase 1+ (Negative) H 04/21/24 15:20 Urine WBC (Auto) 0-5 /hpf (0-5) 04/21/24 15:20 Urine RBC (Auto) >20 /hpf (0-2) H 04/21/24 15:20 U Hyaline Cast (Auto) 0-2 /lpf (0-2) 04/21/24 15:20 U Epithel Cells (Auto) 3-5 /hpf (0-2) H 04/21/24 15:20 Urine Bacteria (Auto) None Seen (None Seen) 04/21/24 15:20 Urine Opiates Screen Neg (Neg) 04/16/24 15:45 Ur Methadone, Qual Neg (Neg) 04/16/24 15:45 Urine Fentanyl Screen Neg (Neg) 04/16/24 15:45 Urine Barbiturates Neg (Neg) 04/16/24 15:45 Ur Phencyclidine (PCP) Neg (Neg) 04/16/24 15:45 U Amphetamin/Meth Scrn Neg (Neg) 04/16/24 15:45 MDMA (Ecstasy) Screen Neg (Neg) 04/16/24 15:45 U OH-Alprazolam Confrm 240 ng/mL (<25) H 04/16/24 15:45 U Benzodiazepines Scrn Pos (Neg) H 04/16/24 15:45 7-Amino Clonazepam NEGATIVE ng/mL (<25) 04/16/24 15:45 Ur Nordiazepam Confirm NEGATIVE ng/mL (<50) 04/16/24 15:45 U OH-ethylflurazepam NEGATIVE ng/mL (<50) 04/16/24 15:45 U Lorazepam Cnf GC/MS NEGATIVE ng/mL (<50) 04/16/24 15:45 U Oxazepam Confm GC/MS NEGATIVE ng/mL (<50) 04/16/24 15:45 Ur Temazepam Confirm NEGATIVE ng/mL (<50) 04/16/24 15:45 U OH-Triazolam Confirm NEGATIVE ng/mL (<50) 04/16/24 15:45 U OH-Midazolam Confirm NEGATIVE ng/mL (<50) 04/16/24 15:45 Ur Cocaine Metabolite Neg (Neg) 04/16/24 15:45 U Marijuana (THC) Screen Neg (Neg) 04/16/24 15:45 Drug Screen Comment SEE NOTE 04/16/24 15:45 Adenovirus (PCR) Not Detected (NotDetected) 04/15/24 18:32 B. pertussis DNA (PCR) Not Detected (NotDetected) 04/15/24 18:32 B.parapertussis DNA PCR Not Detected (NotDetected) 04/15/24 18:32 C. pneumoniae DNA (PCR) Not Detected (NotDetected) 04/15/24 18:32 Coronavirus OC43 (PCR) Not Detected (NotDetected) 04/15/24 18:32 Coronavirus HKU1 (PCR) Not Detected (NotDetected) 04/15/24 18:32 Coronavirus 229E (PCR) Not Detected (NotDetected) 04/15/24 18:32 SARS-CoV-2 (PCR) Not Detected (NotDetected) 04/15/24 18:32 Coronavirus NL63 (PCR) Not Detected (NotDetected) 04/15/24 18:32 Human Metapneumovir PCR Not Detected (NotDetected) 04/15/24 18:32 Influenza Type A (PCR) Not Detected (NotDetected) 04/15/24 18:32 Influenza Type B (PCR) Not Detected (NotDetected) 04/15/24 18:32 M. pneumoniae (PCR) Not Detected (NotDetected) 04/15/24 18:32 Parainfluenza 1 (PCR) Not Detected (NotDetected) 04/15/24 18:32 Parainfluenza 2 (PCR) Not Detected (NotDetected) 04/15/24 18:32 Parainfluenza 3 (PCR) Not Detected (NotDetected) 04/15/24 18:32 Parainfluenza 4 (PCR) Not Detected (NotDetected) 04/15/24 18:32 RSV (PCR) Not Detected (NotDetected) 04/15/24 18:32 Entero/Rhino (PCR) Not Detected (NotDetected) 04/15/24 18:32 Impressions Chest X-Ray 04/15/24 18:07 XR chest 1V portable HISTORY: 78 years-old Female Chest pain, nonspecific COMPARISON: 12/02/2023 TECHNIQUE: AP view the chest FINDINGS: Cardiac silhouette is enlarged. Pulmonary vascular congestion with chronic interstitial coarsening. No pneumothorax, large pleural effusion or lobar airspace consolidation. Spondylitic spurring of the spine. IMPRESSION: Cardiomegaly with pulmonary vascular congestion. ACT 112: Negative or not required by law. The above report was generated using voice recognition software. It may contain grammatical, syntax or spelling errors. Electronically signed by: Greyson Sarabia M.D. 04/15/2024 6:[address] 04/15/24 18:29 Exam(s): CT HEAD Without Contrast EXAM: CT Head Without Intravenous Contrast CLINICAL HISTORY: Reason for exam: confusion. TECHNIQUE: Axial computed tomography images of the head/brain without intravenous contrast. CTDI is 68.24 mGy and DLP is 1100.35 mGy-cm. Automated exposure control was utilized for the study. A dose lowering technique was utilized adhering to the principles of ALARA. COMPARISON: CT head on 12/13/2022 FINDINGS: Brain: No acute infarct or hemorrhage identified. No extra-axial fluid collection. No mass effect or midline shift. Scattered areas of hypoattenuation in the supratentorial white matter likely represent chronic small vessel ischemic changes. Ventricles and sulci: Prominence of the ventricles and sulci is likely secondary to cerebral volume loss. Bones: Mild hyperostosis frontalis interna. No bony lesion or acute fracture. Subcutaneous tissues: Normal. Sinuses: Mild mucosal thickening in the maxillary sinuses and ethmoid air cells. Mastoid air cells: Normal. Orbits: Bilateral lens implants. Other: Atherosclerotic calcifications in the intracranial vasculature. IMPRESSION: 1. No acute intracranial abnormality. 2. Chronic small vessel ischemic changes and cerebral volume loss. Electronically signed by: Julian Harding M.D. 04/15/24 20:16 PM Renal Ultrasound 04/19/24 09:08 ULTRASOUND KIDNEYS AND BLADDER CLINICAL HISTORY: Acute renal insufficiency. COMPARISON STUDY: Abdominal CT dated 12/02/2023. TECHNIQUE: Real-time, grayscale, and color flow sonography of the kidneys and bladder is performed. Images are reviewed in the transverse and longitudinal planes. FINDINGS: Kidneys: The kidneys demonstrate cortical atrophy. Echotexture there is normal. The right kidney measures 9.9 cm in length and the left kidney measures 10.3 cm in length. There is no hydronephrosis. No shadowing renal calculi are identified. A 1.6 cm cyst is seen in the interpolar left kidney. There is no sonographic evidence of contour deforming renal mass lesion. No perinephric fluid is identified. Bladder: The bladder is normal in appearance. Bilateral ureteral jets were seen. IMPRESSION: 1. The kidneys demonstrate cortical atrophy and are without hydronephrosis. 2. The bladder is normal as imaged. ACT 112: Negative or not required by law. Electronically signed by: Slick Bragg M.D. 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 Calvert is a medical history significant for chronic diastolic heart failure (EF 60 to 65%, TTE 2023), A-fib on Eliquis, hypertension, hyperlipidemia, statin intolerance, GAURAV CPAP intolerance, DM2 on oral medications, hypothyroidism, migraine, anxiety/mood disorder, past tobacco abuse who was admitted for acute encephalopathy. Acute encephalopathy Likely due to UTI/medications --CT head: No acute intracranial abnormality. Chronic small vessel ischemic changes and cerebral volume loss. Medications likely contributing as well Normal TSH VBG showed no hypercarbia Alprazolam dose decreased to 0.25 mg twice a day Mental status seem to be back to baseline Reorient frequently to minimize delirium Plan to be discharged home today Acute cystitis Urinary retention Abnormal UA Acute kidney injury likely due to above -Renal USD: No signs of obstruction successful voiding trial suspect hematuria 2/2 cystis continue CTX, day 4/7 Transition to oral antibiotics on discharge to complete the course Generalized weakness Ambulatory dysfunction Fall precautions Continue PT OT--improving ambulating in halls with 100ft x 2 with WC Plan to discharge home with home health as requested by patient/family Other chronic conditions: Hypertension GAURAV CPAP intolerance A-fib on Eliquis Hyperlipidemia on statin DM II Hypothyroidism Mood disorder Continue home medications as able DVT Px: On Eliquis CODE STATUS Full code Disposition Home with home health Total Time Total Time Spent Total Time Spent (In Minutes): 48 minutes Discharge Plan Discharge Items Patient Disposition: Home - Home Health Services Reason For Visit: DEMENTIA Discharge Diagnosis: Acute metabolic encephalopathy Urinary tract infection Urinary retention Activity: Per Instructions section Exercise/Sports: Gradually increase as tolerated Non-emergency contact: Primary Care Provider Call non-emergency contact if: you have any medication questions, your symptoms worsen, your pain is concerning for you and you have a fever Follow-up/Referrals: Rosemary Valentine MD [Primary Care Provider] - (Date & Time 04/28/2024 12:20 PM Provider Rosemary Valentine MD Department Family Medicine [facility] ) Herberth Denny [Physician Police Superintendent] - (Date & Time 04/24/2024 3:30 PM Provider Herberth Denny PA-C Department Cardiology [facility] ) Diet: Carb Consistent or DM2 and Heart Healthy Addtl Attending Provider Instructions: Follow-up with your primary care physician Dr. Valentine on 04/28/2024 12:20 PM Follow-up with your equities trader Herberth Denny PA-C on 04/24/2024 3:30 PM Consistent following with your urologist if you have any recurrence of blood in urine/develop urinary retention -- Complete the antibiotic course cefdinir as prescribed for 3 more days to complete treatment for urinary tract infection --Consider to be weaned off of alprazolam as able. Your alprazolam dose is decreased to 0.25 mg twice a day for now. Discuss with your primary care physician for further instructions as the medication could be contributing to confusion in the elderly. Seek immediate medical attention if your symptoms reoccur or worsen Please take all medications as instructed on discharge list below. Please call if you have any questions or problems. You can reach a [facility] hospitalist on duty at [facility] 24 hours a day by calling [phone] Pending Studies at Discharge: No Stand-Alone Forms: My [facility], Smoking Cessation Medications and DC Order Prescriptions: New cefdinir 300 mg capsule 300 mg PO BID Qty: 6 0RF Rx Instructions: Start taking from 04/24/2024 Continued polyethylene glycol 3350 [Miralax] 17 gram powder in packet 17 gm PO HS PRN (Reason: Constipation) irbesartan 150 mg tablet 150 mg PO DAILY albuterol sulfate 90 mcg/actuation HFA aerosol inhaler 2 puff inhalation Q6H PRN (Reason: Shortness Of Breath Or Wheezing) Qty: 1 acetaminophen 650 mg Tablet Extended Release 650 mg PO Q8H PRN (Reason: pain) levothyroxine 150 mcg tablet 150 mcg PO DAILYBB fluticasone propionate 50 mcg/actuation [place],Suspension 2 spray INTRANASAL DAILY Rx Instructions: administer into each nostril Trulicity 0.75 mg/0.5 mL pen injector 0.75 mg SUBCUT WK Rx Instructions: MONDAYS cyanocobalamin (vitamin B-12) 1,000 mcg/mL Kit 1,000 mcg IM MONTHLY Rx Instructions: LAST GIVEN 11/02/23 ondansetron HCl 4 mg tablet 4 mg PO Q6H PRN (Reason: NAUSEA/VOMITING) pantoprazole 20 mg tablet,delayed release (DR/EC) 20 mg PO BID olopatadine 0.1 % Drops 1 drp OPB BID Rx Instructions: separate doses by at least 6-8 hours docusate sodium 100 mg Capsule 200 mg PO HS PRN (Reason: Constipation) loteprednol etabonate 0.5 % drops,suspension 1 drp OPB BID Relaxium Sleep Suppliment 1 - 2 tab PO HS PRN (Reason: Sleep) Eliquis 5 mg Tablet 5 mg PO BID Qty: 60 0RF metoprolol succinate 25 mg Tablet Extended Release 24 Hr 75 mg PO BID Qty: 180 0RF Rx Instructions: take 3 tablets by mouth two times a day rosuvastatin 10 mg tablet 10 mg PO DAILY ezetimibe 10 mg tablet 10 mg PO DAILY hydrochlorothiazide 12.5 mg tablet 12.5 mg PO DAILY aspirin 81 mg Capsule 81 mg PO DAILY Changed sertraline 100 mg tablet 100 mg PO DAILY Qty: 0 0RF alprazolam 0.5 mg tablet 0.25 mg PO BID Qty: 0 0RF Held loratadine 10 mg Tablet 10 mg PO DAILY Hold Instructions: Until further recommendations from your primary care physician Discharge Orders: Discharge Order (Routine); Ordered 04/23/24 Ordered By: Julio Chirinos Admission Data Admit Date/Time: 04/17/24 15:53 Attending Provider: Julio Chirinos Admit Provider: Markell Kasper Primary Care Provider: Rosemary Valentine Other Providers: Markell Kasper; [facility]; [facility]
[2024-04-23 15:31] VITALS: PULSE 91; TEMP 97.3; O2SAT 97
[2024-04-23 16:52] VITALS: BP 188/72
== END 2024-04-23 16:52 | disposition home health service (06) | DRG 884 ==
LOC: ED 17:09 → 2N 17:09 → SUATTDRO 20:31 → 2N 22:50 → 3N 04-16 18:36 → SUATTDRO 04-17 15:53

== ENCOUNTER 2025-05-06 07:13 | Inpatient (IN) ==
--- NOTE | 2025-05-06 07:37 | Emergency Department Note ---
Impression & Plan Chest pain, Dyspnea on exertion, Hypertension, Elevated brain natriuretic peptide (BNP) level ED Provider Note ED Provider Note NAME: LINDA CHATMAN AGE:79 SEX: Female : 1945 ARRIVES VIA: private vehicle INFORMANT: Patient, daughter ED PROVIDER(s): Annel Ahmadi DO CHIEF COMPLAINT: chest pain HPI: This is an 79-year-old female who presents to the emergency department who presents to the emergency department due to concern for chest pain. Patient states chest pain began overnight, is central, and feels like an ache in her chest. She denies any radiation to her back, arms, or neck. Patient denies any prior similar events. Patient states she has atrial fibrillation but no prior history of heart attack or CHF. She does take Eliquis and metoprolol daily. She states she has a chronic cough that is unchanged and believes it secondary to her asthma. Patient states she routinely gets short of breath without exertion. Patient states she does typically sleep sitting up, because it is too hard for her to breathe lying down. She denies any recent fevers, chills, or other URI symptoms. No recent change in medications. She states she follows with Herberth Denny PA-C, with cardiology. She states she cannot recall the last time she had an echo or stress test. PAST MEDICAL HISTORY:See Below PAST SURGICAL HISTORY:See Below FAMILY HISTORY:See Below SOCIAL HISTORY:See Below HOME MEDICATIONS:See Below ALLERGIES:See Below VITALS:See Below PHYSICAL EXAMINATION: GENERAL: alert, well appearing, well nourished, no distress, non-toxic EYE EXAM: normal conjunctiva, PERRL and EOM's grossly intact OROPHARYNX: no exudate, no erythema, lips, buccal mucosa, and tongue normal and mucous membranes are moist NECK: supple, no nuchal rigidity, no adenopathy, non-tender LUNGS: Clear to auscultation. Normal chest wall mechanics, no w/r/r HEART: no murmurs, S1 normal and S2 normal ABDOMEN: abdomen soft, non-tender, normo-active bowel sounds, no masses, no rebound or guarding. SKIN: no rashes, petechiae, orbruising UPPER EXTREMITIES: upper extremities are grossly normal. FROM, nml pulses b/l. LOWER EXTREMITIES: 1+ b/l pitting edema. FROM, nml pulses b/l. NEURO EXAM: Pleasantly forgetful, cranial nerves II-XII grossly intact, normal speech, no facial droop,nogross weakness of arms, no gross weakness of legs. Gross sensation intact. No ataxia. Vital Signs: reviewed and remarkable Differential Diagnosis: acute coronary syndrome, pericarditis, pulmonary embolus, aortic dissection, pneumonia, pneumothorax, musculoskeletal pain, shingles, GERD, GI bleed, as well as others were considered MEDICAL DECISION MAKING: This is an 79-year-old female presents to the Emergency Department concerned for chest pain. Daughter does help to provide history due to some mild accompanying dementia. Patient noted to be hypertensive with her other vital signs stable patient afebrile. Labs drawn and sent, IV established, EKG and CXR performed and interpreted at bedside, and patient placed on telemetry. Patient given a 2 of her 3 usual morning antihypertensive medications. Blood pressure did begin to slowly improve. Patient's troponin negative, proBNP elevated. Patient does have some lower extremity edema, however no diffuse Rales, no dyspnea at rest, no other overt signs of acute CHF. She does have a prior documented history of chronic diastolic CHF. BNP however elevated even compared to prior from last year. Dose of furosemide 20 mg was added. Due to concern for significant hypotension, unclear etiology despite prior cardiac history, case discussed with hospitalist team for additional evaluation. IV Tylenol also added for her headache. She was given low-dose Nitropaste additionally. Patient's chest pain and headache she reported were slowly proving with improvement in her blood pressure. At this time I do not suspect acute vascular emergency. No evidence for ACS based on reassuring EKG and negative first troponin. Second troponin added after discussion with the hospitalist. Patient also sent for CT of the head without contrast which was reassuring. I did discuss all results with patient and family at bedside and they were in agreement with plan for additional inpatient evaluation. Consultation(s): 09: Discussed with Unruly Tiwari hospitalist team, for additional evaluation and mgmt. will add a repeat troponin as well as a CT head without contrast. ER Treatment Provided: See below 1000: Updated plan that the CT head was negative. Patient's blood pressure continues to improve here. Diagnostics Interpreted By Me: -ECG: Normal sinus at 70, normal axis, normal intervals, nonspecific ST/T wave changes -Cardiac Monitoring: An order was placed for continuous cardiac monitoring. The monitor shows a rate of 72 with normal sinus rhythm. -Laboratory studies: As stated above and show below. -Imaging studies: X-ray Chest: A single view study of the chest was reviewed and was negative for cardiomegaly, focal infiltrate, effusion, pulmonary edema, or wide mediastinum. 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 Delirium superimposed on dementia Delirium due to medical condition with behavioral disturbance Delirium On apixaban therapy (Acute) Acute confusion (Acute) Elevated troponin (Acute) Acute dehydration (Acute) Atrial fibrillation with rapid ventricular response (Acute) Elevated LFTs (Acute) Acute UTI (Acute) Volume depletion Diastolic heart failure Elevated LFTs GAURAV on CPAP Dyspnea Bronchitis, acute Cough Asthma (Chronic) Weakness (Acute) Dehydration (Acute) Chest pain (Acute 08/17/14) Palpitations (Acute) Nausea (Acute) Diabetes mellitus, type II (Chronic) Hypertension (Chronic) Paroxysmal atrial fibrillation (Chronic) Hypothyroidism (Chronic) Spinal stenosis of lumbar region (Chronic) Dyslipidemia (Chronic) Statin intolerance (Chronic) Pulmonary nodules (Chronic) GERD (gastroesophageal reflux disease) (Chronic) Previous back surgery H/O shoulder surgery Status post appendectomy Status post tonsillectomy S/P TKR (total knee replacement) Surgical History Hx of cholecystectomy Family History Mother Coronary heart disease CHF (congestive heart failure) Father Stroke Daughter Hypertension Other Lung cancer Social History Smoking Status: Never smoker packs per day: 0.5; Second Hand Exposure: No; Do You Dip or Chew Tobacco: No; Hx Alcohol Use: No Hx Substance Use: No Preferred Language: Luxembourgish Communication Ability: Effective Quality Checker Required: No Beliefs That Will Affect Care: None marital status: / Current Living Situation: Family Current Living Situation Comment: Lives with daughter Feels Safe at Home: Yes Assistive Devices: Walker Allergies Allergies Allergy/AdvReac Type Severity Reaction Status Date / Time Iodinated Contrast Media Allergy Intermediate HIVES Verified 04/15/24 20:09 iodine Allergy Intermediate Hives Verified 04/15/24 20:09 latex Allergy Intermediate LOCAL SKIN Verified 04/15/24 20:09 IRRITATION lidocaine Allergy Intermediate lidocaine Verified 04/15/24 20:09 patch-skin red,hot flushed feeling nitrofurantoin Allergy Mild RASH Verified 04/15/24 20:09 metformin Allergy Unknown ON Verified 04/15/24 20:09 [facility] codeine AdvReac Intermediate N&V Verified 04/15/24 20:09 propoxyphene AdvReac Intermediate NAUSEA AND Verified 04/15/24 20:09 VOMITING [id number] Reductase AdvReac Intermediate LEG CRAMPS Verified 04/15/24 20:09 Inhibitor [Nwinkai-Wzg-Hss Reductase Inhibitor] Home Meds Home Medications Medication Instructions Recorded Confirmed irbesartan 150 mg tablet 150 mg PO DAILY 02/12/19 04/15/24 albuterol sulfate 90 mcg/actuation 2 puff inhalation Q6H PRN 06/12/19 04/15/24 aerosol inhaler Shortness Of Breath Or Wheezing #1 g polyethylene glycol 3350 17 gram 17 gm PO HS PRN Constipation 12/11/19 04/15/24 oral powder packet (Miralax) acetaminophen 650 mg 650 mg PO Q8H PRN pain 12/13/22 04/15/24 tablet,extended release cyanocobalamin (vitamin B-12) 1,000 mcg IM MONTHLY 12/13/22 04/15/24 1,000 mcg/mL injection kit dulaglutide 0.75 mg/0.5 mL 0.75 mg subcut WK 12/13/22 04/15/24 subcutaneous pen injector ([facility]) fluticasone propionate 50 2 spray intranasal DAILY 12/13/22 04/15/24 mcg/actuation nasal spray,suspension loratadine 10 mg tablet 10 mg PO DAILY 12/13/22 04/15/24 loteprednol etabonate 0.5 % eye 1 drp OPB BID 12/02/23 04/15/24 drops,suspension olopatadine 0.1 % eye drops 1 drp OPB BID 12/02/23 04/15/24 ondansetron HCl 4 mg tablet 4 mg PO Q6H PRN NAUSEA/VOMITING 12/02/23 04/15/24 ezetimibe 10 mg tablet 10 mg PO DAILY 04/15/24 04/15/24 hydrochlorothiazide 12.5 mg tablet 12.5 mg PO DAILY 04/15/24 04/15/24 levothyroxine 175 mcg tablet 175 mcg PO QAM 05/06/25 05/06/25 Previous Rx's Medication Instructions Recorded apixaban 5 mg tablet (Eliquis) 5 mg PO BID #60 tabs 12/07/23 metoprolol succinate 25 mg 75 mg (3 x 25 mg) PO BID #180 tabs 12/07/23 tablet,extended release 24 hr alprazolam 0.5 mg tablet 0.25 mg (1/2 x 0.5 mg) PO BID #0 04/23/24 tabs sertraline 100 mg tablet 100 mg PO DAILY #0 tabs 04/23/24 Results & Data (ED) Vital Signs Vital Signs - 24 hr 05/06/25 07:16 05/06/25 07:39 05/06/25 08:00 Temperature 36.1 C L Temperature Source Temporal Artery Scan Pulse Rate 74 Pulse Rate [Apical] 79 71 Pulse Rhythm [Apical] Regular Respiratory Rate 18 30 H 14 Respiratory Effort / Characteristics Non-Labored Spontaneous Non-Labored Spontaneous Short of Breath Respiratory Depth Normal Normal Respiratory Pattern Regular Regular Blood Pressure 235/100 H Blood Pressure [Left Arm] 256/113 H 218/103 H Blood Pressure Mean 145 Blood Pressure Mean [Left Arm] 160 141 Pulse Oximetry 97 94 95 Oxygen Delivery Method Room Air Room Air Room Air Sepsis Recent Fever Within 48 Hours No Sepsis New/Unexplained Change in Mental Status N/A Sepsis Action Taken by Nursing No Action Required 05/06/25 08:22 05/06/25 08:30 Temperature Temperature Source Pulse Rate 68 Pulse Rate [Apical] 67 Pulse Rhythm [Apical] Respiratory Rate 14 Respiratory Effort / Characteristics Respiratory Depth Respiratory Pattern Blood Pressure Blood Pressure [Left Arm] 191/90 H Blood Pressure Mean Blood Pressure Mean [Left Arm] 123 Pulse Oximetry 95 Oxygen Delivery Method Room Air Sepsis Recent Fever Within 48 Hours Sepsis New/Unexplained Change in Mental Status Sepsis Action Taken by Nursing Laboratory Data 05/06/25 07:30 05/06/25 07:30 Lab Results 05/06/25 05/06/25 Range/Units 07:30 07:40 WBC 7.53 (4.8-10.8) K/ul RBC 4.85 (4.20-5.40) M/uL Hgb 15.5 (12.0-16.0) g/dL Hct 45.2 (37.0-47.0) % MCV 93.2 (80.0-100.0) fL MCH 32.0 (25.0-34.0) pg MCHC 34.3 (32.0-36.0) g/dL RDW Std Deviation 46.0 (36.4-46.3) fL RDW Coeff of Anne 13.7 (11.5-14.5) % Plt Count 262 (130-400) K/uL MPV 9.0 L (9.4-12.4) fL Immature Gran % (Auto) 0.3 % Neut % (Auto) 66.0 % Lymph % (Auto) 17.4 % Bennett % (Auto) 8.0 % Eos % (Auto) 7.8 % Baso % (Auto) 0.5 % Neut # (Auto) 4.97 (1.40-6.50) K/uL Lymph # (Auto) 1.31 (1.20-3.40) K/uL Bennett # (Auto) 0.60 H (0.11-0.59) K/uL Eos # (Auto) 0.59 H (0.00-0.50) K/uL Baso # (Auto) 0.04 (0.00-0.20) K/uL Immature Gran # (Auto) 0.02 (0.01-0.20) K/uL PT 11.2 (9.0-12.0) Seconds INR 1.1 (0.9-1.1) Sodium 139 (136-145) mmol/L Potassium 3.7 (3.5-5.1) mmol/L Chloride 102 (98-107) mmol/L Carbon Dioxide 29 (21-32) mmol/L Anion Gap 8 (3-11) BUN 15 (6-23) mg/dl Creatinine 0.89 (0.6-1.2) mg/dl Est Cr Clr Drug Dosing 50.6 ml/min eGFR 65.09 BUN/Creatinine Ratio 16.9 (10-20) Glucose 136 H (70-99(Fasting)) mg/dl Calcium 9.5 (8.6-10.3) mg/dl Magnesium 2.1 (1.7-2.4) mg/dl Total Bilirubin 0.8 (0.2-1.0) mg/dl AST 16 (13-39) U/L ALT 11 (7-52) U/L Alkaline Phosphatase 119 H (34-104) U/L Troponin I High Sens 6.5 (0-14) pg/ml B-Natriuretic Peptide 236 H (0-100) pg/ml Total Protein 8.4 H (6.0-8.3) gm/dl Albumin 4.5 (3.4-5.0) gm/dl Globulin 3.9 (2.5-4.0) gm/dl Albumin/Globulin Ratio 1.2 (0.9-2) Lipase 27 (11-82) U/L TSH 2.360 (0.300-4.500) uIu/ml Urine Color Yellow Urine Appearance Clear (Clear) Urine pH 8.5 H (4.5-7.5) Ur Specific [place] 1.009 (1.000-1.030) Urine Protein 2+ H (Negative) Urine Glucose (UA) Negative (Negative) Urine Ketones Negative (Negative) Urine Blood Negative (Negative) Urine Nitrite Negative (Negative) Urine Bilirubin Negative (Negative) Urine Urobilinogen Negative (Negative) Ur Leukocyte Esterase Negative (Negative) Urine WBC (Auto) 0-5 (0-5) /hpf Urine RBC (Auto) 0-2 (0-2) /hpf U Hyaline Cast (Auto) 0-2 (0-2) /lpf U Epithel Cells (Auto) 0-2 (0-2) /hpf Urine Bacteria (Auto) None Seen (None Seen) Urine Comment Administered Medications Discontinued Medications Acetaminophen (Acetaminophen 1000 Mg/100 Ml Iv) Confirm Administered Dose 1,000 mg IV .STK-MED ONE Stop: 05/06/25 08:03 Last Admin: 05/06/25 08:05 Dose: Not Given Documented By: RAEGAN Furosemide (Furosemide Inj 20 Mg/2 Ml Vial) 20 mg IV ONE ONE Stop: 05/06/25 08:35 Last Admin: 05/06/25 09:13 Dose: 20 mg Documented By: KARYN Hydrochlorothiazide (Hydrochlorothiazide 25 Mg Tab) 12.5 mg PO NOW STA Stop: 05/06/25 07:46 Last Admin: 05/06/25 08:00 Dose: 12.5 mg Documented By: RAEGAN Acetaminophen (Ofirmev) 1,000 mg in 100 mls @ 400 mls/hr IV NOW STA Stop: 05/06/25 08:13 Last Infusion: 05/06/25 08:18 Dose: Infused Documented By: Admin: 05/06/25 08:03 Dose: 400 mls/hr Documented By: RAEGAN Metoprolol Succinate (Metoprolol Succ 50mg Ext Rel Tab) 75 mg PO NOW STA Stop: 05/06/25 07:46 Last Admin: 05/06/25 08:06 Dose: 75 mg Documented By: RAEGAN Nitroglycerin (Nitroglycerin 2% Ointment 30gm Tube) 0.5 inch EXT NOW ONE Stop: 05/06/25 08:57 Last Admin: 05/06/25 09:13 Dose: 0.5 inch Documented By: KARYN Imaging Data Radiologist's Impression: Chest X-Ray 05/06/25 07:40 EXAM: XR chest 1V portable CLINICAL HISTORY: CP. TECHNIQUE: An X-ray image of the chest was obtained in the AP portable projection. COMPARISON: Prior dated 04/30/2024 was reviewed. FINDINGS: Pulmonary Parenchyma: Minimal haze is noted in both lung bases, which could be nonspecific and is likely due to a superimposed soft tissue shadow. There is no evidence of consolidation, collapse, or focal opacities. No pulmonary nodules are identified. There is no evidence of pleural effusion or pleural thickening. Heart and Mediastinum: Cardiomegaly is noted. There is no mediastinal widening or masses. No hilar or mediastinal lymphadenopathy is seen. Bony Thorax: The bony thorax appears intact without fractures or deformities. Soft Tissues: The soft tissues overlying the chest wall are unremarkable. IMPRESSION: 1. Cardiomegaly is noted. 2. No acute cardiopulmonary abnormalities are identified. 3. No interval changes. Electronically signed by Kirk Abdul 05-06-2025 08:[address] 05/06/25 09:18 CT SCAN OF THE BRAIN WITHOUT IV CONTRAST CLINICAL HISTORY: Headache. COMPARISON STUDY: Head CT April 30, 2024. TECHNIQUE: Unenhanced axial CT scan of the brain was performed from the vertex to the skull base. A dose lowering technique was utilized adhering to the principles of ALARA. CT DOSE: 625.8 mGy.cm FINDINGS: Brain parenchyma: No acute intracranial hemorrhage, midline shift or mass effect is present. Tang-white matter differentiation is preserved. There are no extra- axial fluid collections. There are no findings to suggest acute dural sinus thrombosis or acute territorial infarct. White matter hypodensities are similar to prior exam and favor small vessel disease. A small old lacunar infarct within left thalamus is unchanged. Ventricles, sulci, cisterns: There is no hydrocephalus. The basal cisterns are patent. Calvarium: Unremarkable. Sinuses and mastoids: The visualized paranasal sinuses are clear. The mastoid air cells are well pneumatized. Orbits: The bony orbits are grossly intact. IMPRESSION: No acute intracranial findings. No significant change in appearance of the brain. ACT 112: Negative or not required by law. Electronically signed by: Mello Chung M.D. 05/06/2025 9:54 AM Discharge Plan Visit Data Chief Complaint: Chest Pain Stated Complaint: CHEST PAIN,HEADACHE ED Provider: Annel Ahmadi Discharge Problem: Chest pain, Dyspnea on exertion, Hypertension, Elevated brain natriuretic peptide (BNP) level Patient Disposition: Being Evaluated by Hospitalist Condition: Fair Forms Stand Alone Forms: My [facility] Prescriptions Prescriptions: No Action polyethylene glycol 3350 [Miralax] 17 gram powder in packet 17 gm PO HS PRN (Reason: Constipation) irbesartan 150 mg tablet 150 mg PO DAILY albuterol sulfate 90 mcg/actuation HFA aerosol inhaler 2 puff inhalation Q6H PRN (Reason: Shortness Of Breath Or Wheezing) Qty: 1 acetaminophen 650 mg Tablet Extended Release 650 mg PO Q8H PRN (Reason: pain) fluticasone propionate 50 mcg/actuation [place],Suspension 2 spray INTRANASAL DAILY Rx Instructions: administer into each nostril loratadine 10 mg Tablet 10 mg PO DAILY Hold Instructions: Until further recommendations from your primary care physician Trulicity 0.75 mg/0.5 mL pen injector 0.75 mg SUBCUT WK Rx Instructions: MONDAYS cyanocobalamin (vitamin B-12) 1,000 mcg/mL Kit 1,000 mcg IM MONTHLY Rx Instructions: LAST GIVEN 11/02/23 ondansetron HCl 4 mg tablet 4 mg PO Q6H PRN (Reason: NAUSEA/VOMITING) olopatadine 0.1 % Drops 1 drp OPB BID Rx Instructions: separate doses by at least 6-8 hours loteprednol etabonate 0.5 % drops,suspension 1 drp OPB BID Eliquis 5 mg Tablet 5 mg PO BID Qty: 60 0RF metoprolol succinate 25 mg Tablet Extended Release 24 Hr 75 mg PO BID Qty: 180 0RF Rx Instructions: take 3 tablets by mouth two times a day ezetimibe 10 mg tablet 10 mg PO DAILY hydrochlorothiazide 12.5 mg tablet 12.5 mg PO DAILY sertraline 100 mg tablet 100 mg PO DAILY Qty: 0 0RF alprazolam 0.5 mg tablet 0.25 mg PO BID Qty: 0 0RF levothyroxine 175 mcg tablet 175 mcg PO QAM Referrals Referrals: Rosemary Valentine MD [Primary Care Provider] -
[2025-05-06] MEDS: hydroCHLOROthiazide 25 MG TAB PO STA (08:00)
[2025-05-06 08:03] LABS: Hematocrit (blood only) 45.2 % (37.0-47.0); Hemoglobin 15.5 g/dL (12.0-16.0); Immature Granulocytes # (auto) 0.02 K/uL (0.01-0.20); Immature Granulocytes % (auto) 0.3 %; Mean Corpuscular Hemoglobin 32.0 pg (25.0-34.0); Mean Corpuscular Volume 93.2 fL (80.0-100.0); Platelet Count 262 K/uL (130-400); RDW Standard Deviation 46.0 fL (36.4-46.3); Red Blood Count 4.85 M/uL (4.20-5.40); White Blood Count 7.53 K/ul (4.8-10.8)
[2025-05-06] MEDS: ACETAMINOPHEN 1,000 MG/100 ML VIAL IV STA (08:03)
[2025-05-06] MEDS: ACETAMINOPHEN 1000 MG/100 ML IV IV ONE (08:05)
[2025-05-06] MEDS: METOPROLOL SUCC 50MG EXT REL TAB PO STA (08:06)
[2025-05-06 08:12] LABS: Appearance Urine Clear (Clear); Bacteria Urine Automated None Seen (None Seen); Cast Urine Automated 0-2 /lpf (0-2); Epithelial Cell Urine Auto 0-2 /hpf (0-2); Glucose Urine UA Negative (Negative); RBC Urine Automated 0-2 /hpf (0-2); WBC Urine Automated 0-5 /hpf (0-5)
[2025-05-06 08:22] LABS: Alanine Aminotransferase 11.0 U/L (7-52); Albumin Globulin Ratio 1.2 (0.9-2); Albumin Level 4.5 gm/dl (3.4-5.0); Alkaline Phosphatase 119.0 U/L (34-104); Anion Gap 8.0 (3-11); Bilirubin,Total 0.8 mg/dl (0.2-1.0); Blood Urea Nitrogen 15.0 mg/dl (6-23); Calcium 9.5 mg/dl (8.6-10.3); Carbon Dioxide 29.0 mmol/L (21-32); Chloride 102.0 mmol/L (98-107); Creatinine Clr Calc Pharmacy 50.6 ml/min; Globulin 3.9 gm/dl (2.5-4.0); Glucose 136.0 mg/dl (70-99(Fasting)); Lipase 27.0 U/L (11-82); Magnesium 2.1 mg/dl (1.7-2.4); Potassium 3.7 mmol/L (3.5-5.1); Sodium 139.0 mmol/L (136-145); Total Protein 8.4 gm/dl (6.0-8.3)
[2025-05-06 08:36] LABS: INR 1.1 (0.9-1.1); Prothrombin Time 11.2 Seconds (9.0-12.0)
[2025-05-06 08:37] LABS: Thyroid Stimulating Hormone 2.36 uIu/ml (0.300-4.500)
--- NOTE | 2025-05-06 08:45 | XRay Report ---
EXAM: XR chest 1V portable CLINICAL HISTORY: CP. TECHNIQUE: An X-ray image of the chest was obtained in the AP portable projection. COMPARISON: Prior dated 04/30/2024 was reviewed. FINDINGS: Pulmonary Parenchyma: Minimal haze is noted in both lung bases, which could be nonspecific and is likely due to a superimposed soft tissue shadow. There is no evidence of consolidation, collapse, or focal opacities. No pulmonary nodules are identified. There is no evidence of pleural effusion or pleural thickening. Heart and Mediastinum: Cardiomegaly is noted. There is no mediastinal widening or masses. No hilar or mediastinal lymphadenopathy is seen. Bony Thorax: The bony thorax appears intact without fractures or deformities. Soft Tissues: The soft tissues overlying the chest wall are unremarkable. IMPRESSION: 1. Cardiomegaly is noted. 2. No acute cardiopulmonary abnormalities are identified. 3. No interval changes. Electronically signed by Kirk Abdul 05-06-2025 08:45 AM
[2025-05-06] MEDS: NITROGLYCERIN 2% OINTMENT 30GM TUBE EXT ONE (09:13)
[2025-05-06] MEDS: FUROSEMIDE INJ 20 MG/2 ML VIAL IV ONE (09:13)
--- NOTE | 2025-05-06 09:27 | History & Physical Report ---
Date of Service May 06, 2025 Assessment & Plan (1) Hypertensive urgency: (2) Paroxysmal atrial fibrillation: (3) Hypertension: (4) Dyslipidemia: (5) Statin intolerance: (6) Diabetes mellitus, type II: (7) Diastolic heart failure: (8) GAURAV on CPAP: (9) Hypothyroidism: (10) GERD (gastroesophageal reflux disease): Plan Hypertensive Urgency PAF on Eliquis Chronic diastolic CHF HTN HLD with statin Intolerance - Obs tele - CT head negative for acute findings, hx of being on eliquis, no recent falls, trauma. This does show an old lacunar stroke which was not present on CT head from Apr 2024, so happened within the past year. Family notes she does have chronic balance issues, uses a rolling walker at baseline. - PT/OT consults - BP improved at this point to 165/96 down from 256/113 down, given her normal home meds Toprol XL 75 and HCTZ 12.5 mg. Lasix 20 mg IV administered with elevated BNP of 236 in the ER. She is on ARB as well, irbesartan 150 mg every morning, will resume this or substitute it based on pharmacy supply, Cr/GRF is good today. - Last Echo done November 2023 showing EF of 60-65% with mild concentric LVH, consider repeat - can be done as , outpatient - Follows with [facility] cardiology as outpatient - Herberth Denny, last seen about 1 year ago - Hx of chronic headaches/migraines - possible headache is worsening the BP, improving with pain improvement given tylenol in the ER - Will remove nitro paste now with BP meds taking effect to prevent worsening MCCORMICK. - Nausea present, add antiemetics - Bedside potty with administration of lasix, diuretic naive, monitor I/Os, daily weights Asthma - Continue fluticasone-salmeterol inhaler daily DM II - She is no longer on glipizide - this was only while she was on a prednisone taper in Feb during a viral illness. - ISS with [facility] ACHS - A1c 6.2 a year ago, recheck with am labs CKD stage IIIa -chronic, stable creatinine and GFR adequate today Hypothyroidism - Continue levothyroxine 175 mcg daily DVT ppx: teds, scds, eliquis Lines: PIV x 1 FEN/GI: HH/DM CODE: Full Dispo: From home, likely to remain in the hospital x 1 day and dc home tomorrow I spent a total of 75 minutes with greater than 50% of that time face to face with the patient, personally reviewing all current laboratories, imaging studies, past medication reconciliation, outpatient chart review, and discussion with specialists to collaborate care for the patient excluding time spent in the performance of separately billed services or time spent by another provider/QHP. Please see attending documentation for corrections and/or additions. History of Present Illness Chief Complaint: Chest pain Primary Care Provider: Rosemary Valentine MD This is an 79-year-old female with PMHx of paroxysmal A-fib on Eliquis, HTN, HLD, statin intolerance, DM type II, stage IIIa CKD, generalized osteoarthritis, spinal stenosis, moderate persistent asthma, multiple pulmonary nodules, GERD, anxiety, depression, morbid obesity with BMI of 40.1 and mild dementia, who presents to the hospital with acute onset of chest pain. Pt sleeps sitting up overnight which is chronic, and woke up overnight c/o central chest pain/heaviness without radiation, numbness or tingling. Patient states that her headache is her main concern at this point, it is frontal right-sided, slightly improved compared to whenever she presented initially to the ER. Denies any visual disturbances, changes in speech, focal neurological symptoms. Patient admits a history of migraine headaches, states this headache feels much worse than what she remembers others feeling. Reports shortness of breath and cp with minimal ADLs at baseline. Her daughter is present with her at bedside and supports the history. She denies any recent falls, trauma, illnesses, or sick contacts. Uses a rolling walker at baseline due to issues with balance. Does not require any supplemental O2. She has just come back from CT scan. Her blood pressure is improving overall now 165/96. She is feeling nauseous currently. In the ER patient is found to have fairly normal laboratory results, BNP is slightly elevated at 236, troponin is negative x 1, CXR shows no pulmonary issues except cardiomegaly noted. Her blood pressure is initially elevated at 256/113 in the ER, and was administered metoprolol [id number] mg, HCTZ 12.5 mg, Lasix 20 mg IV, and given Nitropaste half inch topically. Allergies Allergy/AdvReac Type Severity Reaction Status Date / Time Iodinated Contrast Media Allergy Intermediate HIVES Verified 05/06/25 10:54 iodine Allergy Intermediate Hives Verified 05/06/25 10:54 latex Allergy Intermediate LOCAL SKIN Verified 05/06/25 10:54 IRRITATION lidocaine Allergy Intermediate lidocaine Verified 05/06/25 10:54 patch-skin red,hot flushed feeling nitrofurantoin Allergy Mild RASH Verified 05/06/25 10:54 metformin Allergy Unknown ON Verified 05/06/25 10:54 [facility] L[facility] codeine AdvReac Intermediate N&V Verified 05/06/25 10:54 propoxyphene AdvReac Intermediate NAUSEA AND Verified 05/06/25 10:54 VOMITING [facility]de-[facility]-DaF Reductase AdvReac Intermediate LEG CRAMPS Verified 05/06/25 10:54 Inhibitor [Vlezvwc-Lry-Bsm Reductase Inhibitor] Home Medications Medication Instructions Recorded Confirmed Type irbesartan 150 mg tablet 150 mg PO DAILY 02/12/19 05/06/25 History albuterol sulfate 90 mcg/actuation 2 puff inhalation Q6H PRN 06/12/19 05/06/25 History aerosol inhaler Shortness Of Breath Or Wheezing #1 g polyethylene glycol 3350 17 gram 17 gm PO HS PRN Constipation 12/11/19 05/06/25 History oral powder packet (Miralax) cyanocobalamin (vitamin B-12) 1,000 mcg IM MONTHLY 12/13/22 05/06/25 History 1,000 mcg/mL injection kit dulaglutide 0.75 mg/0.5 mL 0.75 mg subcut WK 12/13/22 05/06/25 History subcutaneous pen injector (Trulicity) loratadine 10 mg tablet 10 mg PO DAILY 12/13/22 05/06/25 History loteprednol etabonate 0.5 % eye 1 drp OPB BID 12/02/23 05/06/25 History drops,suspension olopatadine 0.1 % eye drops 1 drp OPB BID 12/02/23 05/06/25 History ondansetron HCl 4 mg tablet 4 mg PO Q6H PRN NAUSEA/VOMITING 12/02/23 05/06/25 History apixaban 5 mg tablet (Eliquis) 5 mg PO BID #60 tabs 12/07/23 05/06/25 Rx metoprolol succinate 25 mg 75 mg (3 x 25 mg) PO BID #180 tabs 12/07/23 05/06/25 Rx tablet,extended release 24 hr alprazolam 0.5 mg tablet 0.25 mg (1/2 x 0.5 mg) PO BID #0 04/23/24 05/06/25 Rx tabs sertraline 100 mg tablet 100 mg PO DAILY #0 tabs 04/23/24 05/06/25 Rx fluticasone propionate 230 1 inh inhalation DAILY PRN SOB 05/06/25 05/06/25 History mcg-salmeterol 21 mcg/actuation HFA inhaler hydrochlorothiazide 25 mg tablet 25 mg PO DAILY 05/06/25 05/06/25 History levothyroxine 175 mcg tablet 175 mcg PO QAM 05/06/25 05/06/25 History neomycin 3.5 mg/g-polymyxin B 1 applic ophthalmic (eye) BID 05/06/25 05/06/25 History 10,000 unit/g-dexameth 0.1 % eye oint Past Med/Surg History Problem List Elevated brain natriuretic peptide (BNP) level (Acute) Hypertensive urgency Dyspnea on exertion (Acute) Chest pain (Acute) Generalized anxiety disorder Suspected UTI 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 Delirium superimposed on dementia Delirium due to medical condition with behavioral disturbance Delirium On apixaban therapy (Acute) Acute confusion (Acute) Elevated troponin (Acute) Acute dehydration (Acute) Atrial fibrillation with rapid ventricular response (Acute) Elevated LFTs (Acute) Acute UTI (Acute) Volume depletion Diastolic heart failure Elevated LFTs GAURAV on CPAP Dyspnea Bronchitis, acute Cough Asthma (Chronic) Weakness (Acute) Dehydration (Acute) Chest pain (Acute 08/17/14) Palpitations (Acute) Nausea (Acute) Diabetes mellitus, type II (Chronic) Hypertension (Chronic) Paroxysmal atrial fibrillation (Chronic) Hypothyroidism (Chronic) Spinal stenosis of lumbar region (Chronic) Dyslipidemia (Chronic) Statin intolerance (Chronic) Pulmonary nodules (Chronic) GERD (gastroesophageal reflux disease) (Chronic) Previous back surgery H/O shoulder surgery Status post appendectomy Status post tonsillectomy S/P TKR (total knee replacement) Surgical History Hx of cholecystectomy Family History Mother Coronary heart disease CHF (congestive heart failure) Father Stroke Daughter Hypertension Other Lung cancer Social History Smoking Status: Never smoker packs per day: 0.5; Second Hand Exposure: No; Do You Dip or Chew Tobacco: No; Hx Alcohol Use: No Hx Substance Use: No Preferred Language: Polish Communication Ability: Effective 3D Technologist Required: No Beliefs That Will Affect Care: None marital status: / Current Living Situation: Family Current Living Situation Comment: home with daughter Feels Safe at Home: Yes Safety Concerns: Feels Safe At This Time Assistive Devices: Walker Assistive Devices Comment: rollator Review of Systems Review of Systems: Constitutional: No fever, sweats or chills, + headache Eyes: No diplopia, no worsening or blurred vision ENT: normal hearing, no trouble swallowing Respiratory: No cough, sputum, dyspnea at rest or on exertion Cardiovascular:+ as per HPI with heaviness/chest pain which is improving, denies radiation, no numbness or tingling into extremities, no tightness or palpitations Abdomen: No pain, nausea, vomiting, diarrhea or constipation Musculoskeletal: No joint pain, calf pain, + slight lower leg swelling occasionally Neurologic: No weakness, numbness/tingling, +balance problems, uses rolling walker Psychiatric: Hx of anxiety and depression Skin: No rash or itch Physical Exam Physical Exam: General: awake, alert, no apparent distress, + elderly white female Head: Normocephalic, atraumatic ENT: PERRL, EOMI, no pharyngeal exudate, mucous membranes moist Chest: Clear to auscultation, on room air, no adventitious breath sounds Cardiac: Regular rate and rhythm, HR in 70s, no pain with palpation of the chest wall, nitropaste in place, no murmur, no JVD, normal peripheral pulses, good capillary refill Abdominal: NABS x 4 quadrants, soft, nondistended, nontender to palpation, no rebound or guarding Extremities: Normal inspection, no peripheral erythema, + trace peripheral edema BLE nonpitting, calfs nontender to palpation Psych: Normal mood and affect Neuro: AAO x 3, strength intact bilaterally and rated 5/5, no motor deficits, speech is clear, no peripheral sensory deficits Results & Data Results & Data Vital Signs (Past 12 Hours) Vital Signs Temp Pulse Pulse Resp BP BP Pulse Ox 05/06/25 08:30 67 14 191/90 H 95 05/06/25 08:22 68 05/06/25 08:00 71 14 218/103 H 95 05/06/25 07:39 79 30 H 256/113 H 94 05/06/25 07:16 36.1 C L 74 18 235/100 H 97 O2 Del Method 05/06/25 08:30 Room Air 05/06/25 08:22 05/06/25 08:00 Room Air 05/06/25 07:39 Room Air 05/06/25 07:16 Room Air Laboratory Results 05/06/25 05/06/25 07:40 07:30 WBC 7.53 RBC 4.85 Hgb 15.5 Hct 45.2 MCV 93.2 MCH 32.0 MCHC 34.3 RDW Std Deviation 46.0 RDW Coeff of Anne 13.7 Plt Count 262 MPV 9.0 L Immature Gran % (Auto) 0.3 Neut % (Auto) 66.0 Lymph % (Auto) 17.4 [place] % (Auto) 8.0 Eos % (Auto) 7.8 Baso % (Auto) 0.5 Neut # (Auto) 4.97 Lymph # (Auto) 1.31 [place] # (Auto) 0.60 H Eos # (Auto) 0.59 H Baso # (Auto) 0.04 Immature Gran # (Auto) 0.02 PT 11.2 INR 1.1 Sodium 139 Potassium 3.7 Chloride 102 Carbon Dioxide 29 Anion Gap 8 BUN 15 Creatinine 0.89 Est Cr Clr Drug Dosing 50.6 eGFR 65.09 BUN/Creatinine Ratio 16.9 Glucose 136 H Calcium 9.5 Magnesium 2.1 Total Bilirubin 0.8 AST 16 ALT 11 Alkaline Phosphatase 119 H Troponin I High Sens 6.5 B-Natriuretic Peptide 236 H Total Protein 8.4 H Albumin 4.5 Globulin 3.9 Albumin/Globulin Ratio 1.2 Lipase 27 TSH 2.360 Urine Color Yellow Urine Appearance Clear Urine pH 8.5 H Ur Specific [place] 1.009 Urine Protein 2+ H Urine Glucose (UA) Negative Urine Ketones Negative Urine Blood Negative Urine Nitrite Negative Urine Bilirubin Negative Urine Urobilinogen Negative Ur Leukocyte Esterase Negative Urine WBC (Auto) 0-5 Urine RBC (Auto) 0-2 U Hyaline Cast (Auto) 0-2 U Epithel Cells (Auto) 0-2 Urine Bacteria (Auto) None Seen Urine Comment Diagnostic Findings Chest X-Ray 05/06/25 07:40 EXAM: XR chest 1V portable CLINICAL HISTORY: CP. TECHNIQUE: An X-ray image of the chest was obtained in the AP portable projection. COMPARISON: Prior dated 04/30/2024 was reviewed. FINDINGS: Pulmonary Parenchyma: Minimal haze is noted in both lung bases, which could be nonspecific and is likely due to a superimposed soft tissue shadow. There is no evidence of consolidation, collapse, or focal opacities. No pulmonary nodules are identified. There is no evidence of pleural effusion or pleural thickening. Heart and Mediastinum: Cardiomegaly is noted. There is no mediastinal widening or masses. No hilar or mediastinal lymphadenopathy is seen. Bony Thorax: The bony thorax appears intact without fractures or deformities. Soft Tissues: The soft tissues overlying the chest wall are unremarkable. IMPRESSION: 1. Cardiomegaly is noted. 2. No acute cardiopulmonary abnormalities are identified. 3. No interval changes. Electronically signed by Kirk Abdul 05-06-2025 08:45 AM ECG Additional Comments: Reviewed personally showing NSSR, Rate [address] wave inversions or signs of ischemia. Code Status & VTE Plan Code Status Full code - discussed with pt and her daughter present at bedside Supervising Physician Co-Signing Physician Notes 79-year-old lady with PMH of paroxysmal A-fib on Eliquis, HTN, HLD, statin intolerance, T2DM, stage IIIa CKD, diastolic heart failure presents with complaint of chest heaviness/ache without radiation which woke her up overnight. Patient denied associated shortness of breath/nausea/dry heaves/sweating. Patient reported discomfort about 7/10, improved to 5/10 by bedside exam. Patient also reports improvement in her headache. Troponin x 1 negative, EKG with no acute ST or T changes. Will trend troponin, get echo. Otherwise labs fairly WNL. CXR and CT head with no acute finding. For hypertensive urgency, continue with home blood pressure medication, hydralazine as needed. Telemetry monitoring. On exam: Patient on room air, trace BLE edema, heart/lung/abdomen exam WNL. Rest of the examination as above. Total time spent independently: 23 minutes. I have seen and examined the patient and have discussed the case with the provider above. I agree with the assessment and plan as stated. (3) Hypertension Hypertension type: unspecified Qualified Code(s): I10 - Essential (primary) hypertension
--- NOTE | 2025-05-06 09:56 | CT Scan Report ---
CT SCAN OF THE BRAIN WITHOUT IV CONTRAST CLINICAL HISTORY: Headache. COMPARISON STUDY: Head CT April 30, 2024. TECHNIQUE: Unenhanced axial CT scan of the brain was performed from the vertex to the skull base. A dose lowering technique was utilized adhering to the principles of ALARA. CT DOSE: 625.8 mGy.cm FINDINGS: Brain parenchyma: No acute intracranial hemorrhage, midline shift or mass effect is present. Tang-whi te matter differentiation is preserved. There are no extra-axial fluid collections. There are no find ings to suggest acute dural sinus thrombosis or acute territorial infarct. White matter hypodensities are similar to prior exam and favor small vessel disease. A small old lacunar infarct within left th alamus is unchanged. Ventricles, sulci, cisterns: There is no hydrocephalus. The basal cisterns are patent. Calvarium: Unremarkable. Sinuses and mastoids: The visualized paranasal sinuses are clear. The mastoid air cells are well pneu matized. Orbits: The bony orbits are grossly intact. IMPRESSION: No acute intracranial findings. No significant change in appearance of the brain. ACT 112: Negative or not required by law. Electronically signed by: Mello Chung M.D. 05/06/2025 9:54 AM
[2025-05-06] MEDS ORDERED: ALBUTEROL HFA 8 GM INHALER INH PRN (10:21)
[2025-05-06] MEDS ORDERED: DEXTROSE 50% 50 ML SYRINGE IV PRN (10:30)
[2025-05-06] MEDS ORDERED: CARBOHYDRATES FOR HYPOGLYCEMIA PO PRN (10:30)
[2025-05-06] MEDS ORDERED: GLUCAGON FOR INJ 1 MG VIAL SQ PRN (10:30)
[2025-05-06] MEDS ORDERED: GLUCOSE 10 TAB/TUBE PO PRN (10:30)
[2025-05-06] MEDS ORDERED: GLUCOSE 40% GEL 15 GM TUBE PO PRN (10:30)
[2025-05-06] MEDS: APIXABAN 5 MG TABLET PO SCH (10:39)
[2025-05-06] MEDS: LOSARTAN POTASSIUM 50 MG TAB PO SCH (10:39)
[2025-05-06] MEDS: ONDANSETRON INJ 2 MG/ML 2 ML VIAL IV STA (10:39)
[2025-05-06] MEDS: INSULIN ASPART PER UNIT CHARGE SC SCH (10:50)
[2025-05-06] MEDS ORDERED: NITROGLYCERIN SL 0.4 MG/TAB TAB SL PRN (11:45)
[2025-05-06] MEDS: NYSTATIN POWDER 15GM BTL EXT SCH (13:00)
[2025-05-06 13:47] LABS: Hemoglobin A1C 6.5 % (4.5-5.6)
--- NOTE | 2025-05-06 15:23 | XCELERA ---
[id number]
[2025-05-06] MEDS: ONDANSETRON INJ 2 MG/ML 2 ML VIAL IV PRN (19:41)
[2025-05-06] MEDS: ACETAMINOPHEN 325 MG TAB PO PRN (19:52)
[2025-05-06] MEDS: METOPROLOL SUCC 25MG EXT REL TAB PO SCH (20:57)
[2025-05-06] MEDS: KETOROLAC TROMETHAMINE 15 MG/ML VIAL IV ONE (22:02)
[2025-05-07] MEDS: MELATONIN 3 MG TAB PO PRN (02:20)
[2025-05-07] MEDS: LEVOTHYROXINE SODIUM 175 MCG TABLET PO SCH (05:34)
[2025-05-07 08:22] LABS: Anion Gap 9.0 (3-11); Blood Urea Nitrogen 26.0 mg/dl (6-23); Calcium 9.0 mg/dl (8.6-10.3); Carbon Dioxide 27.0 mmol/L (21-32); Chloride 102.0 mmol/L (98-107); Creatinine Clr Calc Pharmacy 32.2 ml/min; Glucose 143.0 mg/dl (70-99(Fasting)); Potassium 3.7 mmol/L (3.5-5.1); Sodium 138.0 mmol/L (136-145)
[2025-05-07] MEDS: hydroCHLOROthiazide 25 MG TAB PO SCH (08:39)
[2025-05-07] MEDS: SERTRALINE HCL 100 MG TABLET PO SCH (08:42)
--- NOTE | 2025-05-07 12:08 | Hospitalist Progress Note ---
Date of Service May 07, 2025 Assessment & Plan (1) Hypertensive urgency: (2) Paroxysmal atrial fibrillation: (3) Hypertension: (4) Dyslipidemia: (5) Statin intolerance: (6) Diabetes mellitus, type II: (7) Diastolic heart failure: (8) GAURAV on CPAP: (9) Hypothyroidism: (10) GERD (gastroesophageal reflux disease): Plan per admitting service notes with addendum: Hypertensive Urgency Headache, likely Migraine Flare Chest pain, ACS ruled out - Obs tele - CT head negative for acute findings, hx of being on eliquis, no recent falls, trauma. This does show an old lacunar stroke which was not present on CT head from Apr 2024, so happened within the past year. Family notes she does have chronic balance issues, uses a rolling walker at baseline. - PT/OT consults - BP improved at this point to 165/96 down from 256/113 down, given her normal home meds Toprol XL 75 and HCTZ 12.5 mg. Lasix 20 mg IV administered with elevated BNP of 236 in the ER. She is on ARB as well, irbesartan 150 mg every morning, will resume this or substitute it based on pharmacy supply, Cr/GRF is good today. - Last Echo done November 2023 showing EF of 60-65% with mild concentric LVH, consider repeat - can be done as , outpatient - Follows with [facility] as outpatient - Herberth BachDenisha, last seen about 1 year ago - Hx of chronic headaches/migraines - possible headache is worsening the BP, improving with pain improvement given tylenol in the ER - Will remove nitro paste now with BP meds taking effect to prevent worsening MCCORMICK. - Nausea present, add antiemetics - Bedside potty with administration of lasix, diuretic naive, monitor I/Os, daily weights 05/07/25 no new medications added continue to monitor BP closely headache mostly resolved CT head: no acute process, old cerebellar infarct check Brain MRI appears to be migraine flare up- R sided, has history of migraine, last attack was last year, Tylenol relieving the pain well no recurrence of chest pain given Nitropaste with improvement of HTN urgency and chest pain trop x 2 negative EKG no acute ischemia Echo: Left Ventricular EF 65-70%, moderate LVH, LV wall motion is normal, Gr 1 diastolic dysfunction will consult Cardiology [facility] continue usual Metoprolol hold HCTZ, Irbesartan in light of NOLAN Chronic diastolic CHF -- received IV Lasix yesterday appears euvolemic today crea increased from 0.8 to 1.3 monitor HLD with statin Intolerance PAF on Eliquis Asthma - Continue fluticasone-salmeterol inhaler daily DM II - She is no longer on glipizide - this was only while she was on a prednisone taper in Feb during a viral illness. - ISS with [facility] ACHS - A1c 6.2 a year ago, recheck with am labs CKD stage IIIa - crea increased to 1.3 from 0.8 after IV Lasix monitor closely Hypothyroidism - Continue levothyroxine 175 mcg daily DVT ppx: teds, scds, eliquis Lines: PIV x 1 FEN/GI: HH/DM CODE: Full Dispo: admit to Telemetry lives at home with daughter Admission and Anticipated Discharge Date Admission Date: May 06, 2025 Subjective seen resting in bed, comfortable states she feels better today R sided headache is very minimal to none no problems with vision denies nasal drainage, congestion no recurrence of chest pain no nausea, dizziness, palpitations no other symptoms Review of Systems Review of Systems: all noted and negative except for above Physical Exam Physical Exam: General- oriented x 3, not in distress, speaks in sentences with no effort or accessory muscle use Face- mild tenderness on the maxillary sinus Eyes- anicteric Neck- no JVD Lungs- clear breath sounds bilaterally, no rales/wheezes Heart- normal rate, regular rhythm; no murmurs Abdomen- normal bowel sounds, nondistended, soft, nontender Extremities- no pretibial edema, no calf tenderness Neuro- alert, oriented x 3; no gross focal neurologic deficits Skin- warm & dry Results & Data Results & Data Vital Signs (Past 12 Hours) Vital Signs Temp Pulse Pulse Resp BP Pulse Ox O2 Del Method 05/07/25 07:42 36.5 C 79 18 182/82 H 93 Room Air 05/07/25 06:59 74 05/07/25 02:52 36.4 C L 74 18 170/79 H 93 Room Air 05/07/25 01:33 88 all noted and reviewed including below
--- NOTE | 2025-05-07 12:54 | Cardiology Consultation ---
Date of Consultation May 07, 2025 Assessment & Plan (1) Hypertensive urgency: (2) Chest pain: (3) Dyspnea on exertion: (4) Diastolic heart failure: Plan Patient is an 79 year old female with history of HTN, HFpEF, PAF admitted with hypertensive urgency with complaints of headache, chest pain, dyspnea. She reports non compliance with home HCTZ recently. Elevated BNP and HTN with mild volume overload on exam - treated with IV lasix. Unfortunately worsening renal function noted overnight. HTN Urgency -BP improved on admission with nitro paste and dose of IV lasix along with oral medications (metoprolol succinate 75 mg BID and ARB) -Nitro paste removed due to headache -Continue metoprolol succinate 75 mg BID -continue losartan 50 mg daily (held today due to NOLAN) -anticipate she will need diuretic on discharge to aid with HTN and HFpEF -If BP trends upward again with holding losartan and diuretic, consider low dose amlodipine. Nitrates worsened headache Chest pain -Likely due to HTN urgency -No acute ischemic EKG changes -HS troponin negative x2 since admission -Currently chest pain free -Echo without wall motion abnormalities, preserved LVEF, no significant valvular disease Dyspnea, likely due to Acute HFpEF in setting of hypertensive urgency and non compliance with oral diuretic (HCTZ) -Patient reports frequent urination yesterday with now improved symptoms of SOB and improved BP -Creatinine trended upward to 1.3 today -Hold additional diuretics -Losartan on hold -Consider resuming meds tomorrow. history of PAF -Continue metoprolol and Eliquis -patient reports compliance with meds -Maintaining NSR -Lacunar infarct noted on CT scan (not present in 2023). Brain MRI ordered Case discussed with Dr. Jones I spent a total of 60 minutes on the date of service in preparation, delivery, and documentation of the care provided to this patient, excluding any time spent in the performance of separately billed services. Bethanie White PA-C Department of Cardiology, [facility] This chart was completed in part utilizing Speech Voice Recognition Software. Grammatical errors, random word insertions, pronoun errors, and incomplete sentences are an occasional consequence of this system due to software limitations, ambient noise, and hardware issues. Any formal questions or concerns about the content, text, or information contained within the body of this dictation should be directly addressed to the provider for clarification. Supervising Physician Co-Signing Physician Notes Attending attestation: Case reviewed with the advanced practitioner. I have personally performed a history and physical examination on the patient. I have reviewed the advanced practitioner's documentation on the date of service referenced in note, and I agree with, and take responsibility for the plan of care. Subjective: Patient's daughter is at bedside during my assessment. Patient feeling well. No additional chest discomfort. Blood pressures trended toward improvement. Telemetry reveals sinus rhythm.. Exam: Cardiovascular: Regular rhythm, no murmurs, no Data: MRA neck: 1. Suboptimal evaluation of the major vessels of the neck given lack of postcontrast imaging. Origins of the bilateral common carotid and vertebral arteries not assessed on this exam. 2. Approximate 60% stenosis of the proximal left internal carotid artery. No additional stenoses identified. Summary of MRI brain: 1. No acute intracranial findings. Mild motion artifact. 2. Moderate atrophy and moderate to extensive small vessel disease. A few old lacunar infarcts within the bilateral thalami. Impression/ Plan: Hypertensive urgency - Continue HCTZ, losartan, metoprolol. Continue Eliquis for stroke prophylaxis given history of paroxysmal atrial fibrillation. -Consider carotid duplex as an inpatient or outpatient for further assessment of the 60% stenosis of the proximal left internal carotid artery to make sure there is no other stenosis out of the [id number] of the MRA. Brandon Jones, History of Present Illness Reason for Consultation: Chest pain; HTN Urgency Requesting Physician: Unruly Hospitalist Attending Physician: Dr. Jones History of Present Illness Patient is a 79 year old female who presented to [facility] yesterday with complaints of headache, substernal chest pain, SOB, and uncontrolled HTN > 230/100. Diagnosed with hypertensive urgency. BNP was elevated. She was treated with nitro paste and IV Lasix. Head CT unremarkable for acute findings. Possible old lacunar infarct noted (apparently not present on last head CT). She has been taking eliquis for history of PAF. No recent or missed doses. No known recurrence of afib. EKG demonstrating NSR, without acute ischemic changes. HS troponin negative x2. BNP was mildly elevated. Chest xray without acute findings. Patient admitted to worsening SOB over the last few weeks. She admits that she has been non compliant with diuretic as it makes her "urinate too much". She is to take HCTZ 25 mg daily. She does report compliance with other antihypertensive therapies including metoprolol and irbesartan. Due to headache, and as BP improved, nitro patch was removed. Echo yesterday revealed normal LVEF, normal wall motion, grade I diastolic dysfunction, no significant valuvlar disease. At time of consult, patient resting in chair, feeling much improved over the last 24 hours. No recurrent chest pain. SOB only reported with exertion. no SOB at rest. She reports frequent urination yesterday with IV lasix. BP greatly improved. Her creatinine trended upward this morning after IV lasix. Will hold additional diuretics at this time. Problem List: 1. Chest pain leading to abnormal stress testing and ultimately September 23, 2015 diagnostic cardiac catheterization at [facility] demonstrating diffuse minor irregularities, no explaination for the abnormal stress test or her symptoms. The left ventricular end diastolic pressure was 20 mmHg. 2. Lone documented episode of paroxysmal atrial fibrillation in August 2014 when hospitalized at [facility] with abdominal pain and discomfort, lapsing briefly into atrial fibrillation with spontaneous return to sinus rhythm. Course notable for acute drug reaction to antibiotic therapy for a possible urinary tract infection with Macrobid, developing severe rash, acute renal dysfunction, transiently worsening anemia. 3. Palpitations, previously documented to be in association with sensed ectopy. 4. Hypertension 5. Dyslipidemia with poor tolerance to statin therapy 6. Type II diabetes mellitus 7. Stage III chronic kidney disease 8. Obstructive sleep apnea, untreated, unable to tolerate CPAP therapy. 9. Hiatal hernia 10. Gastritis 11. Hypothyroidism 12. Migraine headaches 13. Vertigo 14. Osteoarthritis status post left total knee replacement at [facility] in July 2016. 15. Chronic constipation 16. + Covid-19 in early June 2020. Allergies Allergy/AdvReac Type Severity Reaction Status Date / Time Iodinated Contrast Media Allergy Intermediate HIVES Verified 05/06/25 10:54 iodine Allergy Intermediate Hives Verified 05/06/25 10:54 latex Allergy Intermediate LOCAL SKIN Verified 05/06/25 10:54 IRRITATION lidocaine Allergy Intermediate lidocaine Verified 05/06/25 10:54 patch-skin red,hot flushed feeling nitrofurantoin Allergy Mild RASH Verified 05/06/25 10:54 metformin Allergy Unknown ON Verified 05/06/25 10:54 [facility] L[facility] codeine AdvReac Intermediate N&V Verified 05/06/25 10:54 propoxyphene AdvReac Intermediate NAUSEA AND Verified 05/06/25 10:54 VOMITING Kncoycu-NFZ-GvS Reductase AdvReac Intermediate LEG CRAMPS Verified 05/06/25 10:54 Inhibitor [Vhofrhf-Mrb-Pas Reductase Inhibitor] Home Medications Medication Instructions Recorded Confirmed Type irbesartan 150 mg tablet 150 mg PO DAILY 02/12/19 05/06/25 History albuterol sulfate 90 mcg/actuation 2 puff inhalation Q6H PRN 06/12/19 05/06/25 History aerosol inhaler Shortness Of Breath Or Wheezing #1 g polyethylene glycol 3350 17 gram 17 gm PO HS PRN Constipation 12/11/19 05/06/25 History oral powder packet (Miralax) cyanocobalamin (vitamin B-12) 1,000 mcg IM MONTHLY 12/13/22 05/06/25 History 1,000 mcg/mL injection kit dulaglutide 0.75 mg/0.5 mL 0.75 mg subcut WK 12/13/22 05/06/25 History subcutaneous pen injector (Trulicity) loratadine 10 mg tablet 10 mg PO DAILY 12/13/22 05/06/25 History loteprednol etabonate 0.5 % eye 1 drp OPB BID 12/02/23 05/06/25 History drops,suspension olopatadine 0.1 % eye drops 1 drp OPB BID 12/02/23 05/06/25 History ondansetron HCl 4 mg tablet 4 mg PO Q6H PRN NAUSEA/VOMITING 12/02/23 05/06/25 History apixaban 5 mg tablet (Eliquis) 5 mg PO BID #60 tabs 12/07/23 05/06/25 Rx metoprolol succinate 25 mg 75 mg (3 x 25 mg) PO BID #180 tabs 12/07/23 05/06/25 Rx tablet,extended release 24 hr alprazolam 0.5 mg tablet 0.25 mg (1/2 x 0.5 mg) PO BID #0 04/23/24 05/06/25 Rx tabs sertraline 100 mg tablet 100 mg PO DAILY #0 tabs 04/23/24 05/06/25 Rx fluticasone propionate 230 1 inh inhalation DAILY PRN SOB 05/06/25 05/06/25 History mcg-salmeterol 21 mcg/actuation HFA inhaler hydrochlorothiazide 25 mg tablet 25 mg PO DAILY 05/06/25 05/06/25 History levothyroxine 175 mcg tablet 175 mcg PO QAM 05/06/25 05/06/25 History neomycin 3.5 mg/g-polymyxin B 1 applic ophthalmic (eye) BID 05/06/25 05/06/25 History 10,000 unit/g-dexameth 0.1 % eye oint Patient History Surgical History Hx of cholecystectomy Family History Mother Coronary heart disease CHF (congestive heart failure) Father Stroke Daughter Hypertension Other Lung cancer Social History Smoking Status: Never smoker packs per day: 0.5; Second Hand Exposure: No; Do You Dip or Chew Tobacco: No; Hx Alcohol Use: No Hx Substance Use: No Preferred Language: Micronesian Communication Ability: Effective Ward Nurse Required: No Beliefs That Will Affect Care: None marital status: / Current Living Situation: Family Current Living Situation Comment: home with daughter Feels Safe at Home: Yes Safety Concerns: Feels Safe At This Time Assistive Devices: Walker Assistive Devices Comment: rollator Review of Systems Review of Systems: All systems reviewed & are unremarkable except as noted in HPI & below Physical Exam Constitutional: WD/WN, vitals as above Neck: trachea midline, no thyromegaly Respiratory: normal respiratory effort; no labored breathing and no cough Auscultation: + diminished lung sounds; no crackles and no rales Cardiovascular: RRR, no murmur, no edema Gastrointestinal (Abdomen): normal bowel sounds, soft, nontender, no hepatosplenomegaly Musculoskeletal: no cyanosis or clubbing, extremities motor strength 5/5 Results & Data Vital Signs (Past 12 Hours) Vital Signs Temp Pulse Pulse Resp BP Pulse Ox O2 Del Method 05/07/25 12:07 36.5 C 78 16 112/67 95 Room Air 05/07/25 07:42 36.5 C 79 18 182/82 H 93 Room Air 05/07/25 06:59 74 05/07/25 02:52 36.4 C L 74 18 170/79 H 93 Room Air 05/07/25 01:33 88 Laboratory Results Comprehensive Metabolic Panel 05/07/25 Range/Units 07:01 Sodium 138 (136-145) mmol/L Potassium 3.7 (3.5-5.1) mmol/L Chloride 102 (98-107) mmol/L Carbon Dioxide 27 (21-32) mmol/L BUN 26 H (6-23) mg/dl Creatinine 1.37 H D (0.6-1.2) mg/dl Glucose 143 H (70-99(Fasting)) mg/dl Calcium 9.0 (8.6-10.3) mg/dl Intake and Output 05/06/25 05/07/25 05/07/25 22:59 06:59 14:59 Intake Total 200 / 420 120 / 420 Balance 200 / -180 120 / -180 Intake: Oral 200 / 320 120 / 320 Other: Weight 90 kg Weight Measurement Method Built in [facility] Diagnostic Findings Telemetry reviewed: NSR, normal EKG EKG reviewed from 05/06/25: NSR, possible voltage criteria for LVH No acute ischemic changes Echo report reviewed dated 05/06/25: LVEF at 65-70% Moderate concentric LVH LV wall motion is normal Grade I diastolic dysfunction No significant valvular pathology Chest X-Ray 05/06/25 07:40 An X-ray image of the chest was obtained in the AP portable projection. COMPARISON: Prior dated 04/30/2024 was reviewed. FINDINGS: Pulmonary Parenchyma: Minimal haze is noted in both lung bases, which could be nonspecific and is likely due to a superimposed soft tissue shadow. There is no evidence of consolidation, collapse, or focal opacities. No pulmonary nodules are identified. There is no evidence of pleural effusion or pleural thickening. Heart and Mediastinum: Cardiomegaly is noted. There is no mediastinal widening or masses. No hilar or mediastinal lymphadenopathy is seen. Bony Thorax: The bony thorax appears intact without fractures or deformities. Soft Tissues: The soft tissues overlying the chest wall are unremarkable. IMPRESSION: 1. Cardiomegaly is noted. 2. No acute cardiopulmonary abnormalities are identified. 3. No interval changes. Electronically signed by Kirk Abdul 05-06-2025 08:[address] 05/06/25 09:18 CT SCAN OF THE BRAIN WITHOUT IV CONTRAST CLINICAL HISTORY: Headache. COMPARISON STUDY: Head CT April 30, 2024. TECHNIQUE: Unenhanced axial CT scan of the brain was performed from the vertex to the skull base. A dose lowering technique was utilized adhering to the principles of ALARA. CT DOSE: 625.8 mGy.cm FINDINGS: Brain parenchyma: No acute intracranial hemorrhage, midline shift or mass effect is present. Tang-white matter differentiation is preserved. There are no extra- axial fluid collections. There are no findings to suggest acute dural sinus thrombosis or acute territorial infarct. White matter hypodensities are similar to prior exam and favor small vessel disease. A small old lacunar infarct within left thalamus is unchanged. Ventricles, sulci, cisterns: There is no hydrocephalus. The basal cisterns are patent. Calvarium: Unremarkable. Sinuses and mastoids: The visualized paranasal sinuses are clear. The mastoid air cells are well pneumatized. Orbits: The bony orbits are grossly intact. IMPRESSION: No acute intracranial findings. No significant change in appearance of the brain ACT 112: Negative or not required by law. Electronically signed by: Mello Chung M.D. 05/06/2025 9:54 AM Prior outside data reviewed: October 19, 2020 TTE Interpretation Summary (as per Dr. Quick): The qualitative LV ejection fraction is 60-64% (normal). The LV wall thickness is mildly i ncreased (concentric). The left ventricular diastolic function is mildly abnormal (grade I). There is mild mitral annular calcification. Compared to prior study of 09/14/2015, there is no significant change. Medications Administered Current Inpatient Medications Acetaminophen (Acetaminophen 325 Mg Tab) 650 mg PO Q4H PRN PRN Reason: Moderate Pain (Scale 4, 5, 6) Stop: 06/05/25 11:14 Last Admin: 05/07/25 09:00 Dose: 650 mg Albuterol (Albuterol Hfa 8 Gm Inhaler) 2 puffs INH Q6H PRN PRN Reason: Shortness Of Breath Or Wheezing Stop: 06/05/25 10:20 Alprazolam (Alprazolam 0.25 Mg Tablet) 0.25 mg PO BID KATHRYN Stop: 06/05/25 20:59 Last Admin: 05/07/25 08:39 Dose: 0.25 mg Apixaban (Apixaban 5 Mg Tablet) 5 mg PO BID KATHRYN Stop: 06/05/25 10:29 Last Admin: 05/07/25 08:39 Dose: 5 mg Dextrose (Dextrose 50% 50 Ml Syringe) 25 - 50 ml IV UD PRN; Protocol PRN Reason: Hypoglycemia Protocol Stop: 06/05/25 10:29 Glucagon (Glucagon For Inj 1 Mg Vial) 1 mg SQ UD PRN; Protocol PRN Reason: Hypoglycemia Protocol Stop: 06/05/25 10:29 Glucose (Glucose 40% Gel 15 Gm Tube) 15 - 30 gm PO UD PRN; Protocol PRN Reason: Hypoglycemia Protocol Stop: 06/05/25 10:29 Glucose (Glucose 10 Tab/Tube) 4 - 8 tab PO UD PRN; Protocol PRN Reason: Hypoglycemia Protocol Stop: 06/05/25 10:29 Hydralazine HCl (Hydralazine Hcl 20 Mg/Ml Vial) 10 mg IV Q6H PRN PRN Reason: Hypertension Stop: 06/05/25 11:17 Hydrochlorothiazide (Hydrochlorothiazide 25 Mg Tab) 12.5 mg PO DAILY KATHRYN Stop: 06/06/25 08:59 Last Admin: 05/07/25 08:39 Dose: 12.5 mg Insulin Aspart (Insulin Aspart Per Unit Charge) 0 units SC ACHS KATHRYN Stop: 06/05/25 11:29 Last Admin: 05/07/25 12:51 Dose: Not Given Levothyroxine Sodium (Levothyroxine Sodium 175 Mcg Tablet) 175 mcg PO DAILYBB KATHRYN Stop: 06/06/25 06:29 Last Admin: 05/07/25 05:34 Dose: 175 mcg Losartan Potassium (Losartan Potassium 50 Mg Tab) 50 mg PO DAILY KATHRYN Stop: 06/05/25 10:29 Last Admin: 05/07/25 08:41 Dose: 50 mg Melatonin (Melatonin 3 Mg Tab) 6 mg PO HS PRN PRN Reason: Sleep Stop: 06/06/25 02:05 Last Admin: 05/07/25 02:20 Dose: 6 mg Metoprolol Succinate (Metoprolol Succ 25mg Ext Rel Tab) 75 mg PO BID KATHRYN Stop: 06/05/25 20:59 Last Admin: 05/07/25 08:41 Dose: 75 mg Miscellaneous (Carbohydrates For Hypoglycemia ) 15 - 30 gm PO UD PRN PRN Reason: Hypoglycemia Protocol Stop: 06/05/25 10:29 Nitroglycerin (Nitroglycerin Sl 0.4 Mg/Tab Tab) 0.4 mg SL Q5M PRN PRN Reason: Chest Pain Stop: 06/05/25 11:44 Nystatin (Nystatin Powder 15gm Btl) 1 appln EXT BID KATHRYN Stop: 06/05/25 11:29 Last Admin: 05/07/25 08:42 Dose: 1 appln Ondansetron HCl (Ondansetron Inj 2 Mg/Ml 2 Ml Vial) 4 mg IV Q4H PRN PRN Reason: Nausea And Vomiting Stop: 06/05/25 11:14 Last Admin: 05/06/25 19:41 Dose: 4 mg Oxycodone HCl (Oxycodone Hcl Ir 5 Mg Tab (Immediate Release)) 5 mg PO Q4H PRN PRN Reason: Pain Stop: 05/20/25 21:33 Polyethylene Glycol (Polyethylene (Miralax) 17 Gm Pack) 17 gm PO HS PRN PRN Reason: Constipation Stop: 06/05/25 10:20 Sertraline HCl (Sertraline Hcl 100 Mg Tablet) 100 mg PO DAILY [facility] Stop: 06/06/25 08:59 Last Admin: 05/07/25 08:42 Dose: 100 mg PG Care Time/CCT Total # of Minutes Spent Total Time Spent with Patient: Total time spent is greater than 50% in coordination of care (as documented) at patient's floor/unit and/or counseling patient: 60 minutes Coding Level of Care Code 36768 IN/OBS CONSULT LVL 4,60M Diagnoses Hypertensive urgency I16.0 Chest pain R07.9 Dyspnea on exertion R06.09 Diastolic heart failure I50.30
--- NOTE | 2025-05-07 15:04 | Magnetic Resonance Report ---
MRA OF THE INTRACRANIAL CIRCULATION WITHOUT CONTRAST CLINICAL HISTORY: Headache. Old cerebellar infarct. COMPARISON STUDY: Head CT performed earlier today. TECHNIQUE: Utilizing a 3 Maria Isabel magnet and 3-D [id number] technique, unenhanced MRA of the intracr anial circulation was obtained. FINDINGS: Please note that the MRI of the brain will be reported separately. The left A1 segment is d iminutive, likely on a congenital basis. The bilateral M1, M2, A1 and A2 segments are patent. This ex am is mildly compromised by motion artifact. No intracranial aneurysm is identified. The right verteb ral artery is dominant. The intracranial portion of the left vertebral artery is diminutive, possibly on a congenital basis. Basilar artery is patent. The bilateral posterior cerebral arteries are paten t. IMPRESSION: No large vessel occlusion. No intracranial aneurysm. ACT 112: Negative or not required by law. Electronically signed by: Mello Chung M.D. 05/07/2025 3:03 PM
--- NOTE | 2025-05-07 15:26 | Magnetic Resonance Report ---
MRI OF THE BRAIN WITHOUT IV CONTRAST CLINICAL HISTORY: Headache. Evaluate for cerebrovascular accident. COMPARISON STUDY: Head CT May 06, 2025. TECHNIQUE: MRI of the brain was performed utilizing various T1 and T2-weighted sequences in the axial , sagittal, and coronal planes. IV contrast was not administered for this examination. FINDINGS: This exam is mildly compromised by motion artifact although is diagnostic. There are no foc i of restricted diffusion to suggest acute infarct. No acute intracranial hemorrhage, midline shift o r mass effect is present. A few small foci of susceptibility artifact on the gradient echo sequence s uggests trace old blood products. Ventricular system is unremarkable. Basal cisterns are patent. Ther e is moderate atrophy. Numerous white matter T2 hyperintense foci represent moderate to extensive sma ll vessel disease. No intracranial masses identified on unenhanced exam. There are a few small old la cunar infarcts within these bilateral thalami. IMPRESSION: 1. No acute intracranial findings. Mild motion artifact. 2. Moderate atrophy and moderate to extensive small vessel disease. A few old lacunar infarcts within the bilateral thalami. ACT 112: Negative or not required by law. Electronically signed by: Mello Chung M.D. 05/07/2025 3:24 PM
--- NOTE | 2025-05-07 15:32 | Magnetic Resonance Report ---
MRA OF THE NECK WITHOUT CONTRAST CLINICAL HISTORY: HEADACHE, OLD CEREBELLAR INFARCT COMPARISON STUDY: None. TECHNIQUE: A 3 Maria Isabel magnet was utilized. 2-D and 3-D [id number] imaging was performed to obtai n unenhanced MRA of the neck. NASCET criteria were utilized to estimate the degree of carotid stenos is. FINDINGS: Exam is suboptimal given lack of postcontrast imaging. The origins of the bilateral common carotid and vertebral arteries were not imaged on this exam. Visualized portions of the common caroti d arteries are patent. The cervical right internal carotid artery is patent. The right vertebral jamal ry is dominant and patent. The left vertebral artery is somewhat diminutive on a congenital basis. Th ere is approximate 60% stenosis at the origin of the left internal carotid artery. No additional sten oses within the neck are identified. IMPRESSION: 1. Suboptimal evaluation of the major vessels of the neck given lack of postcontrast imaging. Origins of the bilateral common carotid and vertebral arteries not assessed on this exam. 2. Approximate 60% stenosis of the proximal left internal carotid artery. No additional stenoses iden tified. ACT 112: Negative or not required by law. Electronically signed by: Mello Chung M.D. 05/07/2025 3:30 PM
[2025-05-08 07:28] LABS: Hematocrit (blood only) 37.6 % (37.0-47.0); Hemoglobin 13.2 g/dL (12.0-16.0); Immature Granulocytes # (auto) 0.02 K/uL (0.01-0.20); Immature Granulocytes % (auto) 0.2 %; Mean Corpuscular Hemoglobin 32.5 pg (25.0-34.0); Mean Corpuscular Volume 92.6 fL (80.0-100.0); Platelet Count 215 K/uL (130-400); RDW Standard Deviation 45.4 fL (36.4-46.3); Red Blood Count 4.06 M/uL (4.20-5.40); White Blood Count 8.32 K/ul (4.8-10.8)
[2025-05-08 07:59] LABS: Alanine Aminotransferase 9.0 U/L (7-52); Albumin Globulin Ratio 1.2 (0.9-2); Albumin Level 3.6 gm/dl (3.4-5.0); Alkaline Phosphatase 85.0 U/L (34-104); Anion Gap 8.0 (3-11); Bilirubin,Total 0.8 mg/dl (0.2-1.0); Blood Urea Nitrogen 32.0 mg/dl (6-23); Calcium 8.9 mg/dl (8.6-10.3); Carbon Dioxide 27.0 mmol/L (21-32); Chloride 102.0 mmol/L (98-107); Creatinine Clr Calc Pharmacy 31.6 ml/min; Globulin 3.1 gm/dl (2.5-4.0); Glucose 136.0 mg/dl (70-99(Fasting)); Magnesium 2.2 mg/dl (1.7-2.4); Potassium 3.9 mmol/L (3.5-5.1); Sodium 137.0 mmol/L (136-145); Total Protein 6.7 gm/dl (6.0-8.3)
--- NOTE | 2025-05-08 08:38 | Electrocardiogram Report ---
Test Reason : Blood Pressure : */* mmHG Vent. Rate : 70 BPM Atrial Rate : 70 BPM P-R Int : 170 ms QRS Dur : 90 ms QT Int : 408 ms P-R-T Axes : 72 -22 43 degrees QTcB Int : 440 ms Normal sinus rhythm Minimal voltage criteria for LVH, may be normal variant ( Leo product ) Borderline ECG When compared with ECG of 30-Apr-2024 16:49, No significant change was found Confirmed by Eulogio Cardenas ([id number]) on 05/08/2025 8:38:39 AM Referred By: REFERRED SELF Confirmed By: Eulogio Cardenas
--- NOTE | 2025-05-08 10:40 | Nephrology Consultation ---
Date of Consultation May 08, 2025 Assessment & Plan (1) Acute kidney injury superimposed on stage 3a chronic kidney disease: Marked worsening of renal function from baseline 0.9-1.0 which is where she was on admission until this morning when she popped up to 1.4. Differential includes ischemic ATN mediated by labile blood pressures; nonadherence to routine outpatient medications such as ARB and diuretics is also a possibility with now being exposed to what are in fact not for her routine meds. Urinalysis on admission notable for 2+ dipstick proteinuria and otherwise bland sediment Losartan and HCTZ are both on hold as is Lasix for now. Of note she had only a one-time Lasix dose of 20 mg on the and no other IV diuretics this admission >> continue to hold these meds This evening she is to receive a 1/2 L slow infusion of NS overnight; she is eating and drinking well and is mildly hypertensive this evening so will cancel this NS order daily bmp continue supportive care as below continue nephrotoxin avoidance (2) Hypertensive urgency: Blood pressure remains labile with most recent blood pressure in the 120s systolic; then 160s this evening. However has been as high as 170s to 180s in the past 12 hours. -target sbp is 140-160s for now -continue Metoprolol succinate 75 mg twice daily and low-dose amlodipine 2.5 mg to remain on board alerted RN to R eyelid droop > family is at bedside and unsure of chronicity > per primary servie History of Present Illness Reason for Consultation: khadijah on ckd 3 Requesting Physician: Dr Chery Attending Physician: Tramaine Chery MD History of Present Illness 79 y/o F whom I'm asked to see for KHADIJAH on CKD3 was admitted on 05/06 w/ HTN urgency and acute on chronic HFpEF after presenting to hospital w/ chest pain and MCCORMICK. PMH includes paroxysmal A-fib on Eliquis, HTN, DM2, CKD3A, HL w/ statin intolerance, generalized osteoarthritis w/ spinal stenosis, moderate persistent asthma, GERD, anxiety/depression, migraines, class 3 obesity and mild dementia. Also has baseline chronic stable anginal sx w/ ADLS and chronic ambulatory dysfunction/walker dependent. She woke from sleep prior to presentation with non radiating central chest pain/heaviness and R sided headache. Blood pressure was elevated initially in the emergency department at 256/113. With the administration of metoprolol, HCTZ, 20 mg IV Lasix and half an inch of Nitropaste, it improved to 165/96. Baseline creatinine 0.9-1.0; her creatinine abruptly increased to 1.4 today after being at baseline on admission yesterday. hctz and losartan are on hold > each last dosed 05/07. she c/o some mild R blurred vision and LLQ abd pain and constipation. no sob, no n/v, no angina. no new /worrisome voiding sx. no f/c rash. Allergies Allergy/AdvReac Type Severity Reaction Status Date / Time Iodinated Contrast Media Allergy Intermediate HIVES Verified 05/06/25 10:54 iodine Allergy Intermediate Hives Verified 05/06/25 10:54 latex Allergy Intermediate LOCAL SKIN Verified 05/06/25 10:54 IRRITATION lidocaine Allergy Intermediate lidocaine Verified 05/06/25 10:54 patch-skin red,hot flushed feeling nitrofurantoin Allergy Mild RASH Verified 05/06/25 10:54 metformin Allergy Unknown ON Verified 05/06/25 10:54 Social PointER MED LIST codeine AdvReac Intermediate N&V Verified 05/06/25 10:54 propoxyphene AdvReac Intermediate NAUSEA AND Verified 05/06/25 10:54 VOMITING [id number]-UhW Reductase AdvReac Intermediate LEG CRAMPS Verified 05/06/25 10:54 Inhibitor [Khdwnkq-Jst-Dxd Reductase Inhibitor] Home Medications Medication Instructions Recorded Confirmed Type irbesartan 150 mg tablet 150 mg PO DAILY 02/12/19 05/06/25 History albuterol sulfate 90 mcg/actuation 2 puff inhalation Q6H PRN 06/12/19 05/06/25 History aerosol inhaler Shortness Of Breath Or Wheezing #1 g polyethylene glycol 3350 17 gram 17 gm PO HS PRN Constipation 12/11/19 05/06/25 History oral powder packet (Miralax) cyanocobalamin (vitamin B-12) 1,000 mcg IM MONTHLY 12/13/22 05/06/25 History 1,000 mcg/mL injection kit dulaglutide 0.75 mg/0.5 mL 0.75 mg subcut WK 12/13/22 05/06/25 [facility] loratadine 10 mg tablet 10 mg PO DAILY 12/13/22 05/06/25 History loteprednol etabonate 0.5 % eye 1 drp OPB BID 12/02/23 05/06/25 History drops,suspension olopatadine 0.1 % eye drops 1 drp OPB BID 12/02/23 05/06/25 History ondansetron HCl 4 mg tablet 4 mg PO Q6H PRN NAUSEA/VOMITING 12/02/23 05/06/25 History apixaban 5 mg tablet (Eliquis) 5 mg PO BID #60 tabs 12/07/23 05/06/25 Rx metoprolol succinate 25 mg 75 mg (3 x 25 mg) PO BID #180 tabs 12/07/23 05/06/25 Rx tablet,extended release 24 hr alprazolam 0.5 mg tablet 0.25 mg (1/2 x 0.5 mg) PO BID #0 04/23/24 05/06/25 Rx tabs sertraline 100 mg tablet 100 mg PO DAILY #0 tabs 04/23/24 05/06/25 Rx fluticasone propionate 230 1 inh inhalation DAILY PRN SOB 05/06/25 05/06/25 History mcg-salmeterol 21 mcg/actuation HFA inhaler hydrochlorothiazide 25 mg tablet 25 mg PO DAILY 05/06/25 05/06/25 History levothyroxine 175 mcg tablet 175 mcg PO QAM 05/06/25 05/06/25 History neomycin 3.5 mg/g-polymyxin B 1 applic ophthalmic (eye) BID 05/06/25 05/06/25 History 10,000 unit/g-dexameth 0.1 % eye oint Patient History Surgical History Hx of cholecystectomy Family History Mother Coronary heart disease CHF (congestive heart failure) Father Stroke Daughter Hypertension Other Lung cancer Social History Smoking Status: Never smoker packs per day: 0.5; Second Hand Exposure: No; Do You Dip or Chew Tobacco: No; Hx Alcohol Use: No Hx Substance Use: No Preferred Language: Czech Communication Ability: Effective Binder Chainstitch Required: No Beliefs That Will Affect Care: None marital status: / Current Living Situation: Family Current Living Situation Comment: home with daughter Feels Safe at Home: Yes Safety Concerns: Feels Safe At This Time Assistive Devices: Walker Assistive Devices Comment: rollator Physical Exam 2 Constitutional: well developed, + acute distress, + obese, + frail appearing and cooperative Eyes: + eyelid abnormality (R eyelid droop) an d EOM intact bilaterally ENMT: Mouth: + dry oral mucous membranes Respiratory: normal respiratory effort Auscultation: + diminished lung sounds Cardiovascular: Rate/Rhythm: regular rate and regular rhythm (w/ occasional skipped beat) Extremities: no edema Gastrointestinal (Abdomen): Inspection/Auscultation: normal bowel sounds P ercussion/Palpation: abdomen soft; abdomen nontender (including LLQ) Musculoskeletal: Extremities: strength 5/5 throughout Skin: no rashes, warm and dry Neurologic: toscano, fluent speech, no tremor Results & Data Vital Signs (Past 12 Hours) Vital Signs Temp Pulse Resp BP Pulse Ox O2 Del Method 05/08/25 08:37 Room Air 05/08/25 08:18 36.6 C 75 18 173/78 H 92 Room Air 05/08/25 03:31 36.5 C 70 16 129/76 95 Room Air 05/07/25 23:28 36.9 C 77 18 143/81 H 94 Room Air Laboratory Results 05/08/25 06:16 05/08/25 06:16 Diagnostic Findings Carotid Dopplers show atherosclerosis bilaterally without stenosis Neck MRA with 60% proximal left internal carotid stenosis Head MRA without large vessel occlusion or intracranial aneurysm Brain MRI moderate cerebral atrophy and moderate to extensive small vessel disease. Also seen are a few old bilateral thalamic infarcts Chest x-ray with cardiomegaly but no acute cardiopulmonary process
--- NOTE | 2025-05-08 12:26 | Cardiology Progress Note ---
Date of Service May 08, 2025 Assessment & Plan (1) Hypertensive urgency: (2) Chest pain: (3) Dyspnea on exertion: (4) Diastolic heart failure: Plan Patient is an 79 year old female with history of HTN, HFpEF, PAF admitted with hypertensive urgency with complaints of headache, chest pain, dyspnea. She reports non compliance with home HCTZ recently. Elevated BNP and HTN with mild volume overload on exam - treated with IV lasix. Unfortunately worsening renal function noted with diuretics. . HTN Urgency -BP improved on admission with nitro paste and dose of IV lasix along with oral medications (metoprolol succinate 75 mg BID and ARB) -Nitro paste removed due to headache -Continue metoprolol succinate 75 mg BID -continue losartan 50 mg daily (held today due to NOLAN). Holding HCTZ as well. -start amlodipine 2.5 mg daily for BP -anticipate she will need diuretic on discharge to aid with HTN and HFpEF - consider loop diuretic rather than HCTZ Chest pain -Likely due to HTN urgency -No acute ischemic EKG changes -HS troponin negative x2 since admission -Currently chest pain free -Echo without wall motion abnormalities, preserved LVEF, no significant valvular disease Dyspnea, likely due to Acute HFpEF in setting of hypertensive urgency and non compliance with oral diuretic (HCTZ) -Patient reports frequent urination yesterday with now improved symptoms of SOB and improved BP -Creatinine trended upward to 1.4 -Hold additional diuretics -Losartan on hold. HCTZ on hold history of PAF -Continue metoprolol and Eliquis -patient reports compliance with meds -Maintaining NSR -Lacunar infarct noted on CT scan (not present in 2023). -confirmed on brain MRI Carotid stenosis noted head/neck MRA but limited visibility due to lack of contrast -repeat carotid duplex requested -consider adding ASA (on Eliquis) -statin allergy noted -check lipids in AM Case discussed with Dr. Robert White PATalC Department of Cardiology, [facility] This chart was completed in part utilizing Speech Voice Recognition Software. Grammatical errors, random word insertions, pronoun errors, and incomplete sentences are an occasional consequence of this system due to software limitations, ambient noise, and hardware issues. Any formal questions or concerns about the content, text, or information contained within the body of this dictation should be directly addressed to the provider for clarification. Admission and Anticipated Discharge Date Admission Date: May 08, 2025 Supervising Physician Co-Signing Physician Notes Attending attestation: Case reviewed with the advanced practitioner. I have personally performed a history and physical examination on the patient. I have reviewed the advanced practitioner's documentation on the date of service referenced in note, and I agree with, and take responsibility for the plan of care. Subjective: Patient's daughter is at bedside during my assessment. Patient feeling well. No additional chest discomfort. Blood pressures trended toward improvement. Telemetry reveals sinus rhythm.. Exam: Cardiovascular: Regular rhythm, no murmurs, no Data: MRA neck: 1. Suboptimal evaluation of the major vessels of the neck given lack of postcontrast imaging. Origins of the bilateral common carotid and vertebral arteries not assessed on this exam. 2. Approximate 60% stenosis of the proximal left internal carotid artery. No additional stenoses identified. Summary of MRI brain: 1. No acute intracranial findings. Mild motion artifact. 2. Moderate atrophy and moderate to extensive small vessel disease. A few old lacunar infarcts within the bilateral thalami. Impression/ Plan: Hypertensive urgency -Chest pain resolved. Blood pressure trending toward improvement however now hydrochlorothiazide and losartan on hold. Continue metoprolol. Amlodipine added. -Continue Eliquis for stroke prophylaxis. - 60% stenosis of the proximal left internal carotid artery to make sure there is no other stenosis out of the [id number] of the MRA. -Obtain lipid panel, given for statin intolerance, likely consider adding ezetimibe. Brandon Jones, DO Subjective Patient resting in chair. feeling Ok. BP was controlled overnight but now elevated. Creatinine yelena to 1.4 today and losartan and Hctz are on hold. No recurrent chest pain. SOB improved Review of Systems Review of Systems: All systems reviewed & are unremarkable except as noted in HPI & below Physical Exam Constitutional: WD/WN, vitals as above Neck: trachea midline, no thyromegaly Respiratory: normal respiratory effort; no labored breathing and no cough Auscultation: + diminished lung sounds; no crackles and no rales Cardiovascular: RRR, no murmur, no edema Gastrointestinal (Abdomen): normal bowel sounds, soft, nontender, no hepatosplenomegaly Musculoskeletal: no cyanosis or clubbing, extremities motor strength 5/5 Results & Data Vital Signs (Past 12 Hours) Vital Signs Temp Pulse Pulse Resp BP Pulse Ox O2 Del Method 05/08/25 12:07 36.6 C 76 18 150/90 H 92 Room Air 05/08/25 10:39 75 05/08/25 08:37 Room Air 05/08/25 08:18 36.6 C 75 18 173/78 H 92 Room Air 05/08/25 03:31 36.5 C 70 16 129/76 95 Room Air Laboratory Results Cardiac Enzymes 05/08/25 Range/Units 06:16 AST 14 (13-39) U/L CBC 05/08/25 Range/Units 06:16 WBC 8.32 (4.8-10.8) K/ul RBC 4.06 L (4.20-5.40) M/uL Hgb 13.2 (12.0-16.0) g/dL Hct 37.6 (37.0-47.0) % Plt Count 215 (130-400) K/uL Neut # (Auto) 5.48 (1.40-6.50) K/uL Lymph # (Auto) 1.51 (1.20-3.40) K/uL [place] # (Auto) 0.59 (0.11-0.59) K/uL Eos # (Auto) 0.69 H (0.00-0.50) K/uL Baso # (Auto) 0.03 (0.00-0.20) K/uL Comprehensive Metabolic Panel 05/08/25 Range/Units 06:16 Sodium 137 (136-145) mmol/L Potassium 3.9 (3.5-5.1) mmol/L Chloride 102 (98-107) mmol/L Carbon Dioxide 27 (21-32) mmol/L BUN 32 H (6-23) mg/dl Creatinine 1.40 H (0.6-1.2) mg/dl Glucose 136 H (70-99(Fasting)) mg/dl Calcium 8.9 (8.6-10.3) mg/dl AST 14 (13-39) U/L ALT 9 (7-52) U/L Alkaline Phosphatase 85 (34-104) U/L Total Protein 6.7 D (6.0-8.3) gm/dl Albumin 3.6 (3.4-5.0) gm/dl Intake and Output 05/07/25 05/08/25 05/08/25 22:59 06:59 14:59 Intake Total 540 / 540 Balance 540 / 540 Intake: Oral 540 / 540 Other: Weight 90.6 kg Weight Measurement Method [facility] Diagnostic Findings Telemetry reviewed: NSR in the 60's Echo report reviewed dated 05/06/25: LVEF at 65-70% Moderate concentric LVH LV wall motion is normal Grade I diastolic dysfunction No significant valvular pathology Medications Administered Current Inpatient Medications Acetaminophen (Acetaminophen 325 Mg Tab) 650 mg PO Q4H PRN PRN Reason: Moderate Pain (Scale 4, 5, 6) Stop: 06/05/25 11:14 Last Admin: 05/07/25 20:17 Dose: 650 mg Albuterol (Albuterol Hfa 8 Gm Inhaler) 2 puffs INH Q6H PRN PRN Reason: Shortness Of Breath Or Wheezing Stop: 06/05/25 10:20 Alprazolam (Alprazolam 0.25 Mg Tablet) 0.25 mg PO BID [facility] Stop: 06/05/25 20:59 Last Admin: 05/08/25 07:45 Dose: 0.25 mg Amlodipine Besylate (Amlodipine Besylate 5 Mg Tab) 2.5 mg PO QAM KATHRYN Stop: 06/07/25 12:29 Apixaban (Apixaban 5 Mg Tablet) 5 mg PO BID KATHRYN Stop: 06/05/25 10:29 Last Admin: 05/08/25 07:43 Dose: 5 mg Dextrose (Dextrose 50% 50 Ml Syringe) 25 - 50 ml IV UD PRN; Protocol PRN Reason: Hypoglycemia Protocol Stop: 06/05/25 10:29 Glucagon (Glucagon For Inj 1 Mg Vial) 1 mg SQ UD PRN; Protocol PRN Reason: Hypoglycemia Protocol Stop: 06/05/25 10:29 Glucose (Glucose 40% Gel 15 Gm Tube) 15 - 30 gm PO UD PRN; Protocol PRN Reason: Hypoglycemia Protocol Stop: 06/05/25 10:29 Glucose (Glucose 10 Tab/Tube) 4 - 8 tab PO UD PRN; Protocol PRN Reason: Hypoglycemia Protocol Stop: 06/05/25 10:29 Hydralazine HCl (Hydralazine Hcl 20 Mg/Ml Vial) 10 mg IV Q6H PRN PRN Reason: Hypertension Stop: 06/05/25 11:17 Hydrochlorothiazide (Hydrochlorothiazide 25 Mg Tab) 12.5 mg PO DAILY KATHRYN Stop: 06/06/25 08:59 Last Admin: 05/07/25 08:39 Dose: 12.5 mg Insulin Aspart (Insulin Aspart Per Unit Charge) 0 units SC ACHS [facility] Stop: 06/05/25 11:29 Last Admin: 05/08/25 09:53 Dose: 1 units Levothyroxine Sodium (Levothyroxine Sodium 175 Mcg Tablet) 175 mcg PO DAILYBB [facility] Stop: 06/06/25 06:29 Last Admin: 05/08/25 05:47 Dose: 175 mcg Losartan Potassium (Losartan Potassium 50 Mg Tab) 50 mg PO DAILY KATHRYN Stop: 06/05/25 10:29 Last Admin: 05/07/25 08:41 Dose: 50 mg Melatonin (Melatonin 3 Mg Tab) 6 mg PO HS PRN PRN Reason: Sleep Stop: 06/06/25 02:05 Last Admin: 05/07/25 02:20 Dose: 6 mg Metoprolol Succinate (Metoprolol Succ 25mg Ext Rel Tab) 75 mg PO BID [facility] Stop: 06/05/25 20:59 Last Admin: 05/08/25 07:43 Dose: 75 mg Miscellaneous (Carbohydrates For Hypoglycemia ) 15 - 30 gm PO UD PRN PRN Reason: Hypoglycemia Protocol Stop: 06/05/25 10:29 Nitroglycerin (Nitroglycerin Sl 0.4 Mg/Tab Tab) 0.4 mg SL Q5M PRN PRN Reason: Chest Pain Stop: 06/05/25 11:44 Nystatin (Nystatin Powder 15gm Btl) 1 appln EXT BID KATHRYN Stop: 06/05/25 11:29 Last Admin: 05/08/25 07:44 Dose: 1 appln Ondansetron HCl (Ondansetron Inj 2 Mg/Ml 2 Ml Vial) 4 mg IV Q4H PRN PRN Reason: Nausea And Vomiting Stop: 06/05/25 11:14 Last Admin: 05/06/25 19:41 Dose: 4 mg Oxycodone HCl (Oxycodone Hcl Ir 5 Mg Tab (Immediate Release)) 5 mg PO Q4H PRN PRN Reason: Pain Stop: 05/20/25 21:33 Polyethylene Glycol (Polyethylene (Miralax) 17 Gm Pack) 17 gm PO HS PRN PRN Reason: Constipation Stop: 06/05/25 10:20 Sertraline HCl (Sertraline Hcl 100 Mg Tablet) 100 mg PO DAILY KATHRYN Stop: 06/06/25 08:59 Last Admin: 05/08/25 07:43 Dose: 100 mg Coding Level of Care Code 52605 SUB INP/OBS CARE 3/50MIN Diagnoses Hypertensive urgency I16.0 Chest pain R07.9 Dyspnea on exertion R06.09 Diastolic heart failure I50.30
--- NOTE | 2025-05-08 13:59 | Ultrasound Report ---
US carotid doppler BI CLINICAL HISTORY: 79 years-old Female with carotid stenosis. 60% stenosis of the left ICA. COMPARISON: MRA neck 05/07/2025 TECHNIQUE: Multiple real time sonographic images of the carotid bifurcations were obtained assessing torre scale, color Doppler and spectral wave form appearance FINDINGS: RIGHT CAROTID: The peak systolic velocity measured in the right ICA is 85 cm/sec. The end diastolic velocity measured 23 cm/sec. The ICA to CCA ratio measured 0.8 which correlates with a stenosis of 0-50%. LEFT CAROTID: The peak systolic velocity measured in the left ICA is 102 cm/sec. The end diastolic velocity measured 27 cm/sec. The ICA to CCA ratio measured 0.73 which correlates with a stenosis of 0 -50%. There is normal antegrade vertebral flow bilaterally. Study is limited secondary to patient body hab itus. There is atherosclerosis noted within the bilateral carotid bulbs. IMPRESSION: Atherosclerosis without elevated peak systolic velocities in the internal carotid arteries to suggest significant stenosis. ACT 112: Negative or not required by law. The above report was generated using voice recognition software. It may contain grammatical, syntax o r spelling errors. Electronically signed by: Greyson Sarabia M.D. 05/08/2025 1:56 PM
--- NOTE | 2025-05-08 14:46 | Hospitalist Progress Note ---
Date of Service May 08, 2025 Assessment & Plan (1) Hypertensive urgency: (2) Paroxysmal atrial fibrillation: (3) Hypertension: (4) Dyslipidemia: (5) Statin intolerance: (6) Diabetes mellitus, type II: (7) Diastolic heart failure: (8) GAURAV on CPAP: (9) Hypothyroidism: (10) GERD (gastroesophageal reflux disease): Plan per admitting service notes with addendum: Hypertensive Urgency Headache, likely Migraine Flare Chest pain, ACS ruled out - Obs tele - CT head negative for acute findings, hx of being on eliquis, no recent falls, trauma. This does show an old lacunar stroke which was not present on CT head from Apr 2024, so happened within the past year. Family notes she does have chronic balance issues, uses a rolling walker at baseline. - PT/OT consults - BP improved at this point to 165/96 down from 256/113 down, given her normal home meds Toprol XL 75 and HCTZ 12.5 mg. Lasix 20 mg IV administered with elevated BNP of 236 in the ER. She is on ARB as well, irbesartan 150 mg every morning, will resume this or substitute it based on pharmacy supply, Cr/GRF is good today. - Last Echo done November 2023 showing EF of 60-65% with mild concentric LVH, consider repeat - can be done as , outpatient - Follows with [facility] as outpatient - Herberth BachDenisha, last seen about 1 year ago - Hx of chronic headaches/migraines - possible headache is worsening the BP, improving with pain improvement given tylenol in the ER - Will remove nitro paste now with BP meds taking effect to prevent worsening MCCORMICK. - Nausea present, add antiemetics - Bedside potty with administration of lasix, diuretic naive, monitor I/Os, daily weights 05/07/25 no new medications added continue to monitor BP closely headache mostly resolved CT head: no acute process, old cerebellar infarct check Brain MRI appears to be migraine flare up- R sided, has history of migraine, last attack was last year, Tylenol relieving the pain well no recurrence of chest pain given Nitropaste with improvement of HTN urgency and chest pain trop x 2 negative EKG no acute ischemia Echo: Left Ventricular EF 65-70%, moderate LVH, LV wall motion is normal, Gr 1 diastolic dysfunction will consult Cardiology SVC continue usual Metoprolol hold HCTZ, Irbesartan in light of NOLAN 05/08/25 chest pain and headache resolved Blood pressure seems to be trending down even while HCTZ and losartan are on hold Amlodipine added for blood pressure control Appreciate cardiology service recommendations Brain MRI: No acute CVA, positive old lacunar infarcts in the thalamus Brain MRA: No aneurysm Neck MRA: Approximately 60% stenosis of the proximal left ICA Carotid ultrasound: Pending Continue Eliquis Intolerant to statins, possible initiation of ezetimibe Acute kidney injury on CKD stage 3 Baseline creatinine 0.8, currently 1.3-1.4 Hypertensive crisis, IV Lasix likely contributing Nephrology service consulted Chronic diastolic CHF -- received IV Lasix yesterday appears on the dry side today crea increased from 0.8 to 1.4 monitor HLD with statin Intolerance PAF on Eliquis Asthma - Continue fluticasone-salmeterol inhaler daily DM II - She is no longer on glipizide - this was only while she was on a prednisone taper in Feb during a viral illness. - ISS with Accu-Cheks ACHS - A1c 6.2 a year ago, recheck with am labs CKD stage IIIa - crea increased to 1.3 from 0.8 after IV Lasix management per above Hypothyroidism - Continue levothyroxine 175 mcg daily DVT ppx: teds, scds, eliquis Lines: PIV x 1 FEN/GI: HH/DM CODE: Full Dispo: admit to Telemetry lives at home with daughter Admission and Anticipated Discharge Date Admission Date: May 08, 2025 Subjective Seen resting in bed, comfortable, in good spirits States she feels better today Headache, chest pain has resolved, no recurrence Denies dizziness, nausea, abdominal pain, problems with urination No other new symptoms Review of Systems Review of Systems: all noted and negative except for above Physical Exam Physical Exam: General- oriented x 3, not in distress, speaks in sentences with no effort or accessory muscle use Eyes- anicteric Neck- no JVD dry oral mucosa Lungs- clear breath sounds bilaterally, no crackles/wheezing Heart- normal rate, regular rhythm; no murmurs Abdomen- normal bowel sounds, nondistended, soft, no tenderness Extremities- no pretibial edema, no calf tenderness Neuro- alert, oriented x 3; no gross focal neurologic deficits Skin- warm & dry Results & Data Results & Data Vital Signs (Past 12 Hours) Vital Signs Temp Pulse Pulse Resp BP Pulse Ox O2 Del Method 05/08/25 12:07 36.6 C 76 18 150/90 H 92 Room Air 05/08/25 10:39 75 05/08/25 08:37 Room Air 05/08/25 08:18 36.6 C 75 18 173/78 H 92 Room Air 05/08/25 03:31 36.5 C 70 16 129/76 95 Room Air all noted and reviewed including below
[2025-05-08] MEDS: SODIUM CHLORIDE 0.9% 500 ML IV SCH (22:07)
--- NOTE | 2025-05-08 22:38 | Communication Note ---
Date of Service: May 08, 2025 Patient with bilateral eye redness associated with pruritus. Right more than the left as per RN. No discharge. AP Allergic conjunctivitis Visine trial
[2025-05-08] MEDS ORDERED: NAPHAZOLIN/PHENIRAMIN OPH SOLN 15 ML BTL OP PRN (22:50)
[2025-05-08] MEDS: LORATADINE 10 MG TAB PO ONE (23:33)
[2025-05-09 07:48] LABS: Anion Gap 8.0 (3-11); Blood Urea Nitrogen 30.0 mg/dl (6-23); Calcium 9.3 mg/dl (8.6-10.3); Carbon Dioxide 25.0 mmol/L (21-32); Chloride 103.0 mmol/L (98-107); Cholesterol 251.0 mg/dl (0-200); Creatinine Clr Calc Pharmacy 41.4 ml/min; Glucose 148.0 mg/dl (70-99(Fasting)); HDL Cholesterol 35.0 mg/dl; Potassium 3.9 mmol/L (3.5-5.1); Sodium 136.0 mmol/L (136-145); Triglycerides 196.0 mg/dl (0-150)
[2025-05-09] MEDS: EZETIMIBE 10 MG TAB PO SCH (09:23)
--- NOTE | 2025-05-09 16:44 | Hospitalist Progress Note ---
Date of Service May 09, 2025 Assessment & Plan (1) Hypertensive urgency: (2) Paroxysmal atrial fibrillation: (3) Hypertension: (4) Dyslipidemia: (5) Statin intolerance: (6) Diabetes mellitus, type II: (7) Diastolic heart failure: (8) GAURAV on CPAP: (9) Hypothyroidism: (10) GERD (gastroesophageal reflux disease): Plan per admitting service notes with addendum: Hypertensive Urgency Headache, likely Migraine Flare Chest pain, ACS ruled out - Obs tele - CT head negative for acute findings, hx of being on eliquis, no recent falls, trauma. This does show an old lacunar stroke which was not present on CT head from Apr 2024, so happened within the past year. Family notes she does have chronic balance issues, uses a rolling walker at baseline. - PT/OT consults - BP improved at this point to 165/96 down from 256/113 down, given her normal home meds Toprol XL 75 and HCTZ 12.5 mg. Lasix 20 mg IV administered with elevated BNP of 236 in the ER. She is on ARB as well, irbesartan 150 mg every morning, will resume this or substitute it based on pharmacy supply, Cr/GRF is good today. - Last Echo done November 2023 showing EF of 60-65% with mild concentric LVH, consider repeat - can be done as , outpatient - Follows with [facility] as outpatient - Herberth aBchDenisha, last seen about 1 year ago - Hx of chronic headaches/migraines - possible headache is worsening the BP, improving with pain improvement given tylenol in the ER - Will remove nitro paste now with BP meds taking effect to prevent worsening MCCORMICK. - Nausea present, add antiemetics - Bedside potty with administration of lasix, diuretic naive, monitor I/Os, daily weights 05/07/25 no new medications added continue to monitor BP closely headache mostly resolved CT head: no acute process, old cerebellar infarct check Brain MRI appears to be migraine flare up- R sided, has history of migraine, last attack was last year, Tylenol relieving the pain well no recurrence of chest pain given Nitropaste with improvement of HTN urgency and chest pain trop x 2 negative EKG no acute ischemia Echo: Left Ventricular EF 65-70%, moderate LVH, LV wall motion is normal, Gr 1 diastolic dysfunction will consult Cardiology SVC continue usual Metoprolol hold HCTZ, Irbesartan in light of NOLAN 05/08/25 chest pain and headache resolved Blood pressure seems to be trending down even while HCTZ and losartan are on hold Amlodipine added for blood pressure control Appreciate cardiology service recommendations Brain MRI: No acute CVA, positive old lacunar infarcts in the thalamus Brain MRA: No aneurysm Neck MRA: Approximately 60% stenosis of the proximal left ICA Carotid ultrasound: Pending Continue Eliquis Intolerant to statins, possible initiation of ezetimibe 05/09 Amlodipine increased to 5mg daily resume Losartan 25mg daily tomorrow Acute kidney injury on CKD stage 3 Baseline creatinine 0.8, currently 1.3-1.4 Hypertensive crisis, IV Lasix likely contributing Nephrology service consulted back to baseline Chronic diastolic CHF -- received IV Lasix yesterday appears on the dry side today crea increased from 0.8 to 1.4 monitor - euvolemic today HLD with statin Intolerance PAF on Eliquis Asthma - Continue fluticasone-salmeterol inhaler daily DM II - She is no longer on glipizide - this was only while she was on a prednisone taper in Feb during a viral illness. - ISS with Accu-Cheks ACHS - A1c 6.2 a year ago, recheck with am labs CKD stage IIIa - crea increased to 1.3 from 0.8 after IV Lasix management per above Hypothyroidism - Continue levothyroxine 175 mcg daily DVT ppx: teds, scds, eliquis Lines: PIV x 1 FEN/GI: HH/DM CODE: Full Dispo: admit to Telemetry lives at home with daughter anticipate d/c tomorrow Admission and Anticipated Discharge Date Admission Date: May 08, 2025 Subjective seen resting in chair, comfortable headache and chest pain resolved feels fine overall in good spirits Review of Systems Review of Systems: all noted and negative except for above Physical Exam Physical Exam: General- oriented x 3, not in distress, speaks in sentences with no effort or accessory muscle use Eyes- anicteric Neck- no JVD Lungs- clear breath sounds BL Heart- normal rate, regular rhythm; no murmurs Abdomen- normal bowel sounds, nondistended, soft, nontender Extremities- no pretibial edema, no calf tenderness Neuro- alert, oriented x 3; no gross focal neurologic deficits Skin- warm & dry Results & Data Results & Data Vital Signs (Past 12 Hours) Vital Signs Temp Pulse Pulse Resp BP Pulse Ox O2 Del Method 05/09/25 15:07 36.5 C 76 20 151/67 H 96 Room Air 05/09/25 13:44 76 05/09/25 11:37 36.7 C 74 20 126/76 94 Room Air 05/09/25 08:08 36.5 C 74 20 161/90 H 96 Room Air 05/09/25 07:14 75 all noted and reviewed including below
[2025-05-10] MEDS: LORATADINE 10 MG TAB PO ONE (00:58)
[2025-05-10] MEDS: METOPROLOL TARTRATE 1 MG/ML VIAL IV STA (03:54)
[2025-05-10] MEDS: CALCIUM CARBONATE 500 MG CHEWABLE TAB PO STA (03:54)
[2025-05-10] MEDS: POLYETHYLENE (MIRALAX) 17 GM PACK PO PRN (07:56)
[2025-05-10 08:05] LABS: Anion Gap 8.0 (3-11); Blood Urea Nitrogen 29.0 mg/dl (6-23); Calcium 9.2 mg/dl (8.6-10.3); Carbon Dioxide 25.0 mmol/L (21-32); Chloride 103.0 mmol/L (98-107); Creatinine Clr Calc Pharmacy 52.2 ml/min; Glucose 143.0 mg/dl (70-99(Fasting)); Potassium 4.1 mmol/L (3.5-5.1); Sodium 136.0 mmol/L (136-145)
[2025-05-10] MEDS: LOSARTAN POTASSIUM 25 MG TAB PO SCH (09:07)
[2025-05-10] MEDS: FLUTICASONE/VILANTEROL 100/25MCG 14 PUFFS/INHALER INH SCH (14:19)
[2025-05-10] MEDS: LOSARTAN POTASSIUM 25 MG TAB PO STA (14:20)
[2025-05-10] MEDS: NEOMYCIN/POLYMYXIN/DEXAMETHA OP OINT 3.5 GM TUBE OP SCH (14:20)
--- NOTE | 2025-05-10 14:30 | Nephrology Progress Note ---
Date of Service May 10, 2025 Assessment & Plan (1) Acute kidney injury superimposed on stage 3a chronic kidney disease: Plan: Marked worsening of renal function from baseline 0.9-1.0 which is where she was on admission until this morning when she popped up to 1.4. Differential includes ischemic ATN mediated by labile blood pressures; nonadherence to routine outpatient medications such as ARB and diuretics is also a possibility with now being exposed to what are in fact not for her routine meds. Urinalysis on admission notable for 2+ dipstick proteinuria and otherwise bland sediment Losartan was restarted at 25 mg yesterday,Amlodipine was increased to 5 mg, increase losartan to 50 mg today. - Continue to hold HCTZ. Of note she had only a one-time Lasix dose of 20 mg on the and no other IV diuretics this admission continue supportive care as below continue nephrotoxin avoidance (2) Hypertensive urgency: Plan: Blood pressure remains elevated with some lower reading w/ 120 systolic over the last 48 hr -target sbp is 140-150s for now - Anti htn- herbert as above, w metoprolol 75 BID Admission and Anticipated Discharge Date Admission Date: May 08, 2025 Subjective seen resting in chair, comfortable NO new complains Review of Systems 2 Review of Systems: All systems reviewed & are unremarkable except as noted in HPI & below Results & Data Vital Signs (Past 12 Hours) Vital Signs Temp Pulse Pulse Resp BP BP Pulse Ox 05/10/25 13:46 78 05/10/25 11:37 36.4 C 71 16 160/82 H 94 05/10/25 07:40 67 05/10/25 07:38 36.4 C L 82 16 149/66 H 93 05/10/25 04:30 79 171/72 H 05/10/25 04:30 79 171/72 H 05/10/25 03:07 36.4 C L 94 H 20 191/78 H 94 O2 Del Method 05/10/25 13:46 05/10/25 11:37 Room Air 05/10/25 07:40 05/10/25 07:38 Room Air 05/10/25 04:30 05/10/25 04:30 05/10/25 03:07 Room Air Laboratory Results 05/08/25 06:16 05/10/25 07:11
--- NOTE | 2025-05-10 15:31 | Hospitalist Progress Note ---
Date of Service May 10, 2025 Assessment & Plan (1) Hypertensive urgency: (2) Paroxysmal atrial fibrillation: (3) Hypertension: (4) Dyslipidemia: (5) Statin intolerance: (6) Diabetes mellitus, type II: (7) Diastolic heart failure: (8) GAURAV on CPAP: (9) Hypothyroidism: (10) GERD (gastroesophageal reflux disease): Plan per admitting service notes with addendum: Hypertensive Urgency Headache, likely Migraine Flare Chest pain, ACS ruled out - Obs tele - CT head negative for acute findings, hx of being on eliquis, no recent falls, trauma. This does show an old lacunar stroke which was not present on CT head from Apr 2024, so happened within the past year. Family notes she does have chronic balance issues, uses a rolling walker at baseline. - PT/OT consults - BP improved at this point to 165/96 down from 256/113 down, given her normal home meds Toprol XL 75 and HCTZ 12.5 mg. Lasix 20 mg IV administered with elevated BNP of 236 in the ER. She is on ARB as well, irbesartan 150 mg every morning, will resume this or substitute it based on pharmacy supply, Cr/GRF is good today. - Last Echo done November 2023 showing EF of 60-65% with mild concentric LVH, consider repeat - can be done as , outpatient - Follows with [facility] as outpatient - Herberth BachDenisha, last seen about 1 year ago - Hx of chronic headaches/migraines - possible headache is worsening the BP, improving with pain improvement given tylenol in the ER - Will remove nitro paste now with BP meds taking effect to prevent worsening MCCORMICK. - Nausea present, add antiemetics - Bedside potty with administration of lasix, diuretic naive, monitor I/Os, daily weights 05/07/25 no new medications added continue to monitor BP closely headache mostly resolved CT head: no acute process, old cerebellar infarct check Brain MRI appears to be migraine flare up- R sided, has history of migraine, last attack was last year, Tylenol relieving the pain well no recurrence of chest pain given Nitropaste with improvement of HTN urgency and chest pain trop x 2 negative EKG no acute ischemia Echo: Left Ventricular EF 65-70%, moderate LVH, LV wall motion is normal, Gr 1 diastolic dysfunction will consult Cardiology SVC continue usual Metoprolol hold HCTZ, Irbesartan in light of NOLAN 05/08/25 chest pain and headache resolved Blood pressure seems to be trending down even while HCTZ and losartan are on hold Amlodipine added for blood pressure control Appreciate cardiology service recommendations Brain MRI: No acute CVA, positive old lacunar infarcts in the thalamus Brain MRA: No aneurysm Neck MRA: Approximately 60% stenosis of the proximal left ICA Carotid ultrasound: Pending Continue Eliquis Intolerant to statins, possible initiation of ezetimibe 05/09 Amlodipine increased to 5mg daily resume Losartan 25mg daily tomorrow 05/10 blood pressure still not at goal, systolic 160s Increase losartan to usual dose 50 mg daily Continue amlodipine Monitor closely Discussed with nephrology service Acute kidney injury on CKD stage 3 Baseline creatinine 0.8, currently 1.3-1.4 Hypertensive crisis, IV Lasix likely contributing Nephrology service consulted back to baseline Chronic diastolic CHF -- received IV Lasix yesterday appears on the dry side today crea increased from 0.8 to 1.4 monitor - euvolemic today HLD with statin Intolerance PAF on Eliquis Asthma - Continue fluticasone-salmeterol inhaler daily DM II - She is no longer on glipizide - this was only while she was on a prednisone taper in Feb during a viral illness. - ISS with Accu-Cheks ACHS - A1c 6.2 a year ago, recheck with am labs CKD stage IIIa - crea increased to 1.3 from 0.8 after IV Lasix management per above Hypothyroidism - Continue levothyroxine 175 mcg daily DVT ppx: teds, scds, eliquis Lines: PIV x 1 FEN/GI: HH/DM CODE: Full Dispo: admit to Telemetry lives at home with daughter anticipate d/c tomorrow Admission and Anticipated Discharge Date Admission Date: May 08, 2025 Subjective seen resting in bed comfortable, not in distress States she feels fine overall today Denies headache, chest pain, shortness of breath, dizziness, palpitations No other new symptoms Review of Systems Review of Systems: all noted and negative except for above Physical Exam Physical Exam: General- oriented x 3, not in distress, speaks in sentences with no effort or accessory muscle use Eyes- anicteric Neck- no JVD Lungs- clear breath sounds BL Heart- normal rate, regular rhythm; no murmurs Abdomen- normal bowel sounds, nondistended, soft, nontender Extremities- no pretibial edema, no calf tenderness Neuro- alert, oriented x 3; no gross focal neurologic deficits Skin- warm & dry Results & Data Results & Data Vital Signs (Past 12 Hours) Vital Signs Temp Pulse Pulse Resp BP BP Pulse Ox 05/10/25 13:46 78 05/10/25 11:37 36.4 C 71 16 160/82 H 94 05/10/25 07:40 67 05/10/25 07:38 36.4 C L 82 16 149/66 H 93 05/10/25 04:30 79 171/72 H 05/10/25 04:30 79 171/72 H O2 Del Method 05/10/25 13:46 05/10/25 11:37 Room Air 05/10/25 07:40 05/10/25 07:38 Room Air 05/10/25 04:30 05/10/25 04:30 all noted and reviewed including below
[2025-05-11 07:21] LABS: Anion Gap 7.0 (3-11); Blood Urea Nitrogen 34.0 mg/dl (6-23); Calcium 9.0 mg/dl (8.6-10.3); Carbon Dioxide 24.0 mmol/L (21-32); Chloride 104.0 mmol/L (98-107); Creatinine Clr Calc Pharmacy 40.7 ml/min; Glucose 143.0 mg/dl (70-99(Fasting)); Potassium 4.1 mmol/L (3.5-5.1); Sodium 135.0 mmol/L (136-145)
[2025-05-11] MEDS: LOSARTAN POTASSIUM 50 MG TAB PO SCH (07:38)
--- NOTE | 2025-05-11 08:59 | Nephrology Progress Note ---
Date of Service May 11, 2025 Assessment & Plan Admission and Anticipated Discharge Date Admission Date: May 08, 2025 Subjective Assessment & Plan (1) Acute kidney injury superimposed on stage 3a chronic kidney disease: Plan: Marked worsening of renal function from baseline 0.9-1.0 which is where she was on admission until this morning when she popped up to 1.4. But now back to baseline. Differential includes ischemic ATN mediated by labile blood pressures; nonadherence to routine outpatient medications such as ARB and diuretics is also a possibility with now being exposed to what are in fact not for her routine meds. Urinalysis on admission notable for 2+ dipstick proteinuria and otherwise bland sediment raise Losartan to 100 daily--change back to irbesartan she was taking at home pre admission at discharge though Raise amlo to 5 bid. At home can take amlo 10 at bedtime Raise metoprolol to 100 bid. Hold HCTZ--Has Low Na in elderly female--high risk of low na--may try Loop diuretics though continue supportive care as below continue nephrotoxin avoidance (2) Hypertensive urgency: Plan: Blood pressure remains elevated Subjective seen resting in chair, comfortable NO new complains Review of Systems Review of Systems: All systems reviewed & are unremarkable except as noted in HPI & below Physical Exam Constitutional: well developed, + acute distress, + obese, + frail appearing and cooperative Eyes: + eyelid abnormality (R eyelid droop) an d EOM intact bilaterally ENMT: Mouth: + dry oral mucous membranes Respiratory: normal respiratory effort Auscultation: + diminished lung sounds Cardiovascular: Rate/Rhythm: regular rate and regular rhythm (w/ occasional skipped beat) Extremities: no edema Gastrointestinal (Abdomen): Inspection/Auscultation: normal bowel sounds Percussion/Palpation: abdomen soft; abdomen nontender (including LLQ) Musculoskeletal: Extremities: strength 5/5 throughout Skin: no rashes, warm and dry Neurologic: toscano, fluent speech, no tremor Results & Data Vital Signs (Past 12 Hours) Vital Signs Temp Pulse Pulse Resp BP Pulse Ox O2 Del Method 05/11/25 07:53 36.4 C L 73 20 182/82 H 96 Room Air 05/11/25 07:13 66 05/11/25 02:59 36.4 C L 72 18 125/70 93 Room Air 05/10/25 22:46 36.5 C 71 18 154/78 H 95 Room Air
[2025-05-11] MEDS: METOPROLOL SUCC 25MG EXT REL TAB PO ONE (09:42)
[2025-05-11] MEDS: LOSARTAN POTASSIUM 50 MG TAB PO ONE (09:42)
[2025-05-11 11:54] VITALS: RESP 18
--- NOTE | 2025-05-11 17:08 | Hospitalist Progress Note ---
Date of Service May 11, 2025 Assessment & Plan (1) Chest pain: (2) Hypertensive urgency: (3) Acute kidney injury superimposed on stage 3a chronic kidney disease: Plan: (1) Hypertensive urgency: (2) Paroxysmal atrial fibrillation: (3) Hypertension: (4) Dyslipidemia: (5) Statin intolerance: (6) Diabetes mellitus, type II: (7) Diastolic heart failure: (8) GAURAV on CPAP: (9) Hypothyroidism: (10) GERD (gastroesophageal reflux disease): Plan per admitting service notes with addendum: Hypertensive Urgency Headache, likely Migraine Flare Chest pain, ACS ruled out - Obs tele - CT head negative for acute findings, hx of being on eliquis, no recent falls, trauma. This does show an old lacunar stroke which was not present on CT head from Apr 2024, so happened within the past year. Family notes she does have chronic balance issues, uses a rolling walker at baseline. - PT/OT consults - BP improved at this point to 165/96 down from 256/113 down, given her normal home meds Toprol XL 75 and HCTZ 12.5 mg. Lasix 20 mg IV administered with elevated BNP of 236 in the ER. She is on ARB as well, irbesartan 150 mg every morning, will resume this or substitute it based on pharmacy supply, Cr/GRF is good today. - Last Echo done November 2023 showing EF of 60-65% with mild concentric LVH, consider repeat - can be done as , outpatient - Follows with [facility] as outpatient - Herberth Denny, last seen about 1 year ago - Hx of chronic headaches/migraines - possible headache is worsening the BP, improving with pain improvement given tylenol in the ER - Will remove nitro paste now with BP meds taking effect to prevent worsening MCCORMICK. - Nausea present, add antiemetics - Bedside potty with administration of lasix, diuretic naive, monitor I/Os, daily weights 05/07/25 no new medications added continue to monitor BP closely headache mostly resolved CT head: no acute process, old cerebellar infarct check Brain MRI appears to be migraine flare up- R sided, has history of migraine, last attack was last year, Tylenol relieving the pain well no recurrence of chest pain given Nitropaste with improvement of HTN urgency and chest pain trop x 2 negative EKG no acute ischemia Echo: Left Ventricular EF 65-70%, moderate LVH, LV wall motion is normal, Gr 1 diastolic dysfunction will consult Cardiology SVC continue usual Metoprolol hold HCTZ, Irbesartan in light of NOLAN 05/08/25 chest pain and headache resolved Blood pressure seems to be trending down even while HCTZ and losartan are on hold Amlodipine added for blood pressure control Appreciate cardiology service recommendations Brain MRI: No acute CVA, positive old lacunar infarcts in the thalamus Brain MRA: No aneurysm Neck MRA: Approximately 60% stenosis of the proximal left ICA Carotid ultrasound: Pending Continue Eliquis Intolerant to statins, possible initiation of ezetimibe 05/09 Amlodipine increased to 5mg daily resume Losartan 25mg daily tomorrow 05/10 blood pressure still not at goal, systolic 160s Increase losartan to usual dose 50 mg daily Continue amlodipine Monitor closely Discussed with nephrology service 05/11 Denies symptoms today Losartan, amlodipine, metoprolol increased Continue to monitor blood pressure closely Acute kidney injury on CKD stage 3 Baseline creatinine 0.8, currently 1.3-1.4 Hypertensive crisis, IV Lasix likely contributing -- back to baseline Nephrology service consulted Chronic diastolic CHF -- received IV Lasix yesterday appears on the dry side today crea increased from 0.8 to 1.4 monitor - euvolemic today HLD with statin Intolerance PAF on Eliquis Asthma - Continue fluticasone-salmeterol inhaler daily DM II - She is no longer on glipizide - this was only while she was on a prednisone taper in Feb during a viral illness. - ISS with Accu-Cheks ACHS - A1c 6.5 CKD stage IIIa - crea increased to 1.3 from 0.8 after IV Lasix management per above Hypothyroidism - Continue levothyroxine 175 mcg daily DVT ppx: teds, scds, eliquis Lines: PIV x 1 FEN/GI: HH/DM CODE: Full Dispo: admit to Telemetry lives at home with daughter anticipate d/c when BP stabilized Admission and Anticipated Discharge Date Admission Date: May 08, 2025 Subjective seen resting in chair, comfortable In good spirits States that she feels fine overall Denies headache, chest pain, shortness of breath No other new symptoms Review of Systems Review of Systems: all noted and negative except for above Physical Exam Physical Exam: General- oriented x 3, not in distress, speaks in sentences with no effort or accessory muscle use Eyes- anicteric Neck- no JVD Lungs- clear BL BL no rales/wheezing Heart- normal rate, regular rhythm; no murmurs Abdomen- normal bowel sounds, nondistended, soft, no tenderness Extremities- no pretibial edema, no calf tenderness Neuro- alert, oriented x 3; no gross focal neurologic deficits Skin- warm & dry Results & Data Results & Data Vital Signs (Past 12 Hours) Vital Signs Temp Pulse Pulse Resp BP Pulse Ox O2 Del Method 05/11/25 15:25 36.5 C 70 18 144/80 H 96 Room Air 05/11/25 13:53 70 05/11/25 11:54 36.8 C 68 18 118/77 94 Room Air 05/11/25 07:53 36.4 C L 73 20 182/82 H 96 Room Air 05/11/25 07:13 66 all noted and reviewed including below
[2025-05-11] MEDS: METOPROLOL SUCC 50MG EXT REL TAB PO SCH (20:20)
[2025-05-12 07:45] VITALS: BP 128/63; TEMP 97.9; O2SAT 95
[2025-05-12 07:51] LABS: Anion Gap 9.0 (3-11); Blood Urea Nitrogen 34.0 mg/dl (6-23); Calcium 9.1 mg/dl (8.6-10.3); Carbon Dioxide 22.0 mmol/L (21-32); Chloride 104.0 mmol/L (98-107); Creatinine Clr Calc Pharmacy 42.8 ml/min; Glucose 167.0 mg/dl (70-99(Fasting)); Potassium 4.3 mmol/L (3.5-5.1); Sodium 135.0 mmol/L (136-145)
[2025-05-12] MEDS: LOSARTAN POTASSIUM 50 MG TAB PO SCH (09:28)
[2025-05-12 15:11] LABS: Influenza A virus by PCR Negative (Neg); Influenza B virus by PCR Negative (Neg); SARS CoV2 RNA(COVID-19) Ceph NEGATIVE (Negative)
--- NOTE | 2025-05-12 15:50 | Hospitalist Progress Note ---
Date of Service May 12, 2025 Assessment & Plan (1) Chest pain: (2) Hypertensive urgency: (3) Acute kidney injury superimposed on stage 3a chronic kidney disease: Plan: (1) Hypertensive urgency: (2) Paroxysmal atrial fibrillation: (3) Hypertension: (4) Dyslipidemia: (5) Statin intolerance: (6) Diabetes mellitus, type II: (7) Diastolic heart failure: (8) GAURAV on CPAP: (9) Hypothyroidism: (10) GERD (gastroesophageal reflux disease): Plan per admitting service notes with addendum: Hypertensive Urgency Headache, likely Migraine Flare, newly diagnosed old lacunar infarcts in the bilateral thalami Chest pain, ACS ruled out appears to be migraine flare up- R sided, has history of migraine, last attack was last year, Tylenol relieving the pain well CT head: no acute process, old cerebellar infarct Brain MRI: No acute CVA, positive old lacunar infarcts in the bilateral thalami Brain MRA: No aneurysm Neck MRA: Approximately 60% stenosis of the proximal left ICA Carotid ultrasound: atherosclerosis with no significant stenosis Continue Eliquis twice daily Ezetimibe started by cardiology service chest pain resolved, troponins negative, EKG negative Echo: Left Ventricular EF 65-70%, moderate LVH, LV wall motion is normal, Gr 1 diastolic dysfunction HCTZ discontinued in light of NOLAN Replaced with amlodipine Losartan, [facility], Dr. Monsivais, recommended above blood pressure now at goal Continue to monitor closely as an outpatient Acute kidney injury on CKD stage 3 Baseline creatinine 0.8, currently 1.3-1.4 Hypertensive crisis, IV Lasix likely contributing -- back to baseline Nephrology service consulted Chronic diastolic CHF -- received IV Lasix initially -- euvolemic now HLD with statin Intolerance PAF on Eliquis --brain MRI showing old thalami infarcts, bilateral thalami Continue Eliquis, ezetimibe started Continue to monitor hypertension, diabetes, dyslipidemia Asthma - Continue fluticasone-salmeterol inhaler daily DM II - She is no longer on glipizide - this was only while she was on a prednisone taper in Feb during a viral illness. - ISS with Accu-Cheks ACHS - A1c 6.5 - Continue with Trulicity CKD stage IIIa - crea increased to 1.3 from 0.8 after IV Lasix management per above Hypothyroidism - Continue levothyroxine 175 mcg daily DVT ppx: teds, scds, eliquis CODE: Full Dispo: discharge to home PCP follow-up in 1 week plan of care discussed with patient and daughter Mimi in detail and at length all questions answered she is understanding, agreeable, comfortable with the plan of care Admission and Anticipated Discharge Date Admission Date: May 08, 2025 Subjective seen resting in bed, comfortable states she feels fine overall has some sore throat Denies fevers or chills, myalgias, shortness of breath, cough No other new symptoms states she is ready for discharge today Review of Systems Review of Systems: all noted and negative except for above Physical Exam Physical Exam: General- oriented x 3, not in distress, speaks in sentences with no effort or a ccessory muscle use Eyes- anicteric Neck- no JVD Mild-mild erythema of the tonsillar area, no edema, exudates Lungs- clear breath sounds bilaterally, no rales/wheezes Heart- normal rate, regular rhythm; no murmurs Abdomen- normal bowel sounds, nondistended, soft, nontender Extremities- no pretibial edema, no calf tenderness Neuro- alert, oriented x 3; no gross focal neurologic deficits Skin- warm & dry Results & Data Results & Data Vital Signs (Past 12 Hours) Vital Signs Temp Pulse Pulse Resp BP Pulse Ox O2 Del Method 05/12/25 14:01 70 05/12/25 11:58 77 05/12/25 07:43 36.6 C 73 18 128/63 95 Room Air 05/12/25 07:41 36.7 C 72 18 126/68 92 Room Air all noted and reviewed including below
--- NOTE | 2025-05-12 16:05 | Discharge Summary ---
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 Chest pain, ACS ruled out appears to be migraine flare up- R sided, has history of migraine, last attack was last year, Tylenol relieving the pain well CT head: no acute process, old cerebellar infarct Brain MRI: No acute CVA, positive old 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 Monsivais, recommended above blood pressure now at goal Continue to monitor closely as an outpatient Acute kidney injury on CKD stage 3 Baseline creatinine 0.8, currently 1.3-1.4 Hypertensive crisis, IV Lasix likely contributing -- back to baseline Nephrology service consulted Chronic diastolic CHF -- received IV Lasix initially -- euvolemic now HLD with statin Intolerance PAF on Eliquis --brain MRI showing old thalami infarcts, bilateral thalami Continue Eliquis ezetimibe started Continue to monitor hypertension, diabetes, dyslipidemia Sore throat COVID, flu screen, RSV screen: Negative monitor as outpatient Asthma - Continue fluticasone-salmeterol inhaler daily DM II - She is no longer on glipizide - this was only while she was on a prednisone taper in Feb during a viral illness. - ISS with Accu-Cheks ACHS - A1c 6.5 - Continue with Trulicity CKD stage IIIa - crea increased to 1.3 from 0.8 after IV Lasix management per above Hypothyroidism - Continue levothyroxine 175 mcg daily DVT ppx: teds, scds, eliquis CODE: Full Dispo: discharge to home PCP follow-up in 1 week plan of care discussed with patient and daughter Mimi in detail and at length all questions answered she is understanding, agreeable, comfortable with the plan of care Notes For Next Care Provider Medication Changes From Visit as per med rec Admission HPI Per Admitting Provider This is an 79-year-old female with PMHx of paroxysmal A-fib on Eliquis, HTN, HLD, statin intolerance, DM type II, stage IIIa CKD, generalized osteoarthritis, spinal stenosis, moderate persistent asthma, multiple pulmonary nodules, GERD, anxiety, depression, morbid obesity with BMI of 40.1 and mild dementia, who presents to the hospital with acute onset of chest pain. Pt sleeps sitting up overnight which is chronic, and woke up overnight c/o central chest pain/heaviness without radiation, numbness or tingling. Patient states that her headache is her main concern at this point, it is frontal right-sided, slightly improved compared to whenever she presented initially to the ER. Denies any visual disturbances, changes in speech, focal neurological symptoms. Patient admits a history of migraine headaches, states this headache feels much worse than what she remembers others feeling. Reports shortness of breath and cp with minimal ADLs at baseline. Her daughter is present with her at bedside and supports the history. She denies any recent falls, trauma, illnesses, or sick contacts. Uses a rolling walker at baseline due to issues with balance. Does not require any supplemental O2. She has just come back from CT scan. Her blood pressure is improving overall now 165/96. She is feeling nauseous currently. In the ER patient is found to have fairly normal laboratory results, BNP is slightly elevated at 236, troponin is negative x 1, CXR shows no pulmonary issues except cardiomegaly noted. Her blood pressure is initially elevated at 256/113 in the ER, and was administered metoprolol [id number] mg, HCTZ 12.5 mg, Lasix 20 mg IV, and given Nitropaste half inch topically. Admission Exam Per Admitting Provider General: awake, alert, no apparent distress, + elderly white female Head: Normocephalic, atraumatic ENT: PERRL, EOMI, no pharyngeal exudate, mucous membranes moist Chest: Clear to auscultation, on room air, no adventitious breath sounds Cardiac: Regular rate and rhythm, HR in 70s, no pain with palpation of the chest wall, nitropaste in place, no murmur, no JVD, normal peripheral pulses, good capillary refill Abdominal: NABS x 4 quadrants, soft, nondistended, nontender to palpation, no rebound or guarding Extremities: Normal inspection, no peripheral erythema, + trace peripheral edema BLE nonpitting, calfs nontender to palpation Psych: Normal mood and affect Neuro: AAO x 3, strength intact bilaterally and rated 5/5, no motor deficits, speech is clear, no peripheral sensory deficits Discharge Exam General- oriented x 3, not in distress, speaks in sentences with no effort or accessory muscle use Eyes- anicteric Neck- no JVD Mild-mild erythema of the tonsillar area, no edema, exudates Lungs- clear breath sounds bilaterally, no rales/wheezes Heart- normal rate, regular rhythm; no murmurs Abdomen- normal bowel sounds, nondistended, soft, nontender Extremities- no pretibial edema, no calf tenderness Neuro- alert, oriented x 3; no gross focal neurologic deficits Skin- warm & dry Updated Medication List Medication Instructions Recorded Confirmed Type albuterol sulfate 90 mcg/actuation 2 puff inhalation Q6H PRN 06/12/19 05/06/25 History aerosol inhaler Shortness Of Breath Or Wheezing #1 g polyethylene glycol 3350 17 gram 17 gm PO HS PRN Constipation 12/11/19 05/06/25 History oral powder packet (Miralax) cyanocobalamin (vitamin B-12) 1,000 mcg IM MONTHLY 12/13/22 05/06/25 History 1,000 mcg/mL injection kit dulaglutide 0.75 mg/0.5 mL 0.75 mg subcut WK 12/13/22 05/06/25 History subcutaneous pen injector ([facility]) loratadine 10 mg tablet 10 mg PO DAILY 12/13/22 05/06/25 History loteprednol etabonate 0.5 % eye 1 drp OPB BID 12/02/23 05/06/25 History drops,suspension olopatadine 0.1 % eye drops 1 drp OPB BID 12/02/23 05/06/25 History ondansetron HCl 4 mg tablet 4 mg PO Q6H PRN NAUSEA/VOMITING 12/02/23 05/06/25 History apixaban 5 mg tablet (Eliquis) 5 mg PO BID #60 tabs 12/07/23 05/06/25 Rx alprazolam 0.5 mg tablet 0.25 mg (1/2 x 0.5 mg) PO BID #0 04/23/24 05/06/25 Rx tabs sertraline 100 mg tablet 100 mg PO DAILY #0 tabs 04/23/24 05/06/25 Rx fluticasone propionate 230 1 inh inhalation DAILY PRN SOB 05/06/25 05/06/25 History mcg-salmeterol 21 mcg/actuation HFA inhaler levothyroxine 175 mcg tablet 175 mcg PO QAM 05/06/25 05/06/25 History neomycin 3.5 mg/g-polymyxin B 1 applic ophthalmic (eye) BID 05/06/25 05/06/25 History 10,000 unit/g-dexameth 0.1 % eye oint amlodipine 5 mg tablet 5 mg PO BID 30 days #60 tabs 05/12/25 Rx ezetimibe 10 mg tablet 10 mg PO QAM 30 days #30 tabs 05/12/25 Rx losartan 50 mg tablet 100 mg (2 x 50 mg) PO DAILY 30 05/12/25 Rx days #60 tabs metoprolol succinate 50 mg 100 mg (2 x 50 mg) PO BID 30 days 05/12/25 Rx tablet,extended release 24 hr #120 tabs Hospital Stay Data Consultations 05/06/25 09:55 ED Decision to Admit Stat 05/07/25 12:07 Consult Cardiology Routine 05/08/25 10:28 Consult Nephrology Routine Diagnostic Imagining Performed Laboratory Results WBC 8.32 K/ul (4.8-10.8) 05/08/25 06:16 RBC 4.06 M/uL (4.20-5.40) L 05/08/25 06:16 Hgb 13.2 g/dL (12.0-16.0) 05/08/25 06:16 Hct 37.6 % (37.0-47.0) 05/08/25 06:16 MCV 92.6 fL (80.0-100.0) 05/08/25 06:16 MCH 32.5 pg (25.0-34.0) 05/08/25 06:16 MCHC 35.1 g/dL (32.0-36.0) 05/08/25 06:16 RDW Std Deviation 45.4 fL (36.4-46.3) 05/08/25 06:16 RDW Coeff of Anne 13.4 % (11.5-14.5) 05/08/25 06:16 Plt Count 215 K/uL (130-400) 05/08/25 06:16 MPV 9.1 fL (9.4-12.4) L 05/08/25 06:16 Immature Gran % (Auto) 0.2 % 05/08/25 06:16 Neut % (Auto) 65.9 % 05/08/25 06:16 Lymph % (Auto) 18.1 % 05/08/25 06:16 [place]ascade % (Auto) 7.1 % 05/08/25 06:16 Eos % (Auto) 8.3 % 05/08/25 06:16 Baso % (Auto) 0.4 % 05/08/25 06:16 Neut # (Auto) 5.48 K/uL (1.40-6.50) 05/08/25 06:16 Lymph # (Auto) 1.51 K/uL (1.20-3.40) 05/08/25 06:16 Cascade # (Auto) 0.59 K/uL (0.11-0.59) 05/08/25 06:16 Eos # (Auto) 0.69 K/uL (0.00-0.50) H 05/08/25 06:16 Baso # (Auto) 0.03 K/uL (0.00-0.20) 05/08/25 06:16 Immature Gran # (Auto) 0.02 K/uL (0.01-0.20) 05/08/25 06:16 PT 11.2 Seconds (9.0-12.0) 05/06/25 07:30 INR 1.1 (0.9-1.1) 05/06/25 07:30 Sodium 135 mmol/L (136-145) L 05/12/25 06:28 Potassium 4.3 mmol/L (3.5-5.1) 05/12/25 06:28 Chloride 104 mmol/L (98-107) 05/12/25 06:28 Carbon Dioxide 22 mmol/L (21-32) 05/12/25 06:28 Anion Gap 9 (3-11) 05/12/25 06:28 BUN 34 mg/dl (6-23) H 05/12/25 06:28 Creatinine 1.04 mg/dl (0.6-1.2) 05/12/25 06:28 Est Cr Clr Drug Dosing 42.8 ml/min 05/12/25 06:28 eGFR 54.00 05/12/25 06:28 BUN/Creatinine Ratio 32.7 (10-20) H 05/12/25 06:28 Glucose 167 mg/dl (70-99(Fasting)) H 05/12/25 06:28 POC Glucose 150 mg/dl (70-99) H 05/12/25 11:26 Estimat Average Glucose 140 mg/dl 05/06/25 07:30 Hemoglobin A1c 6.5 % (4.5-5.6) H 05/06/25 07:30 Calcium 9.1 mg/dl (8.6-10.3) 05/12/25 06:28 Magnesium 2.2 mg/dl (1.7-2.4) 05/08/25 06:16 Total Bilirubin 0.8 mg/dl (0.2-1.0) 05/08/25 06:16 AST 14 U/L (13-39) 05/08/25 06:16 ALT 9 U/L (7-52) 05/08/25 06:16 Alkaline Phosphatase 85 U/L (34-104) 05/08/25 06:16 Troponin I High Sens 7.2 pg/ml (0-14) 05/06/25 11:54 B-Natriuretic Peptide 236 pg/ml (0-100) H 05/06/25 07:30 Total Protein 6.7 gm/dl (6.0-8.3) D 05/08/25 06:16 Albumin 3.6 gm/dl (3.4-5.0) 05/08/25 06:16 Globulin 3.1 gm/dl (2.5-4.0) 05/08/25 06:16 Albumin/Globulin Ratio 1.2 (0.9-2) 05/08/25 06:16 Triglycerides 196 mg/dl (0-150) H 05/09/25 06:29 Cholesterol 251 mg/dl (0-200) H 05/09/25 06:29 LDL Cholesterol, Calc 177 mg/dl 05/09/25 06:29 VLDL Cholesterol, Calc 39 mg/dl (0-30) H 05/09/25 06:29 HDL Cholesterol 35 mg/dl 05/09/25 06:29 Cholesterol/HDL Ratio 7.2 (0-5) H 05/09/25 06:29 Lipase 27 U/L (11-82) 05/06/25 07:30 TSH 2.360 uIu/ml (0.300-4.500) 05/06/25 07:30 Urine Color Yellow 05/06/25 07:40 Urine Appearance Clear (Clear) 05/06/25 07:40 Urine pH 8.5 (4.5-7.5) H 05/06/25 07:40 Ur Specific [place] 1.009 (1.000-1.030) 05/06/25 07:40 Urine Protein 2+ (Negative) H 05/06/25 07:40 Urine Glucose (UA) Negative (Negative) 05/06/25 07:40 Urine Ketones Negative (Negative) 05/06/25 07:40 Urine Blood Negative (Negative) 05/06/25 07:40 Urine Nitrite Negative (Negative) 05/06/25 07:40 Urine Bilirubin Negative (Negative) 05/06/25 07:40 Urine Urobilinogen Negative (Negative) 05/06/25 07:40 Ur Leukocyte Esterase Negative (Negative) 05/06/25 07:40 Urine WBC (Auto) 0-5 /hpf (0-5) 05/06/25 07:40 Urine RBC (Auto) 0-2 /hpf (0-2) 05/06/25 07:40 U Hyaline Cast (Auto) 0-2 /lpf (0-2) 05/06/25 07:40 U Epithel Cells (Auto) 0-2 /hpf (0-2) 05/06/25 07:40 Urine Bacteria (Auto) None Seen (None Seen) 05/06/25 07:40 Urine Comment 05/06/25 07:40 SARS-CoV-2 (PCR) NEGATIVE (Negative) 05/12/25 14:20 Influenza Type A (PCR) Negative (Neg) 05/12/25 14:20 Influenza Type B (PCR) Negative (Neg) 05/12/25 14:20 RSV (RT-PCR) Negative (Neg) 05/12/25 14:20 Impressions Chest X-Ray 05/06/25 07:40 EXAM: XR chest 1V portable CLINICAL HISTORY: CP. TECHNIQUE: An X-ray image of the chest was obtained in the AP portable projection. COMPARISON: Prior dated 04/30/2024 was reviewed. FINDINGS: Pulmonary Parenchyma: Minimal haze is noted in both lung bases, which could be nonspecific and is likely due to a superimposed soft tissue shadow. There is no evidence of consolidation, collapse, or focal opacities. No pulmonary nodules are identified. There is no evidence of pleural effusion or pleural thickening. Heart and Mediastinum: Cardiomegaly is noted. There is no mediastinal widening or masses. No hilar or mediastinal lymphadenopathy is seen. Bony Thorax: The bony thorax appears intact without fractures or deformities. Soft Tissues: The soft tissues overlying the chest wall are unremarkable. IMPRESSION: 1. Cardiomegaly is noted. 2. No acute cardiopulmonary abnormalities are identified. 3. No interval changes. Electronically signed by Kirk Abdul 05-06-2025 08:[address] 05/06/25 09:18 CT SCAN OF THE BRAIN WITHOUT IV CONTRAST CLINICAL HISTORY: Headache. COMPARISON STUDY: Head CT April 30, 2024. TECHNIQUE: Unenhanced axial CT scan of the brain was performed from the vertex to the skull base. A dose lowering technique was utilized adhering to the principles of ALARA. CT DOSE: 625.8 mGy.cm FINDINGS: Brain parenchyma: No acute intracranial hemorrhage, midline shift or mass effect is present. Tang-white matter differentiation is preserved. There are no extra- axial fluid collections. There are no findings to suggest acute dural sinus thrombosis or acute territorial infarct. White matter hypodensities are similar to prior exam and favor small vessel disease. A small old lacunar infarct within left thalamus is unchanged. Ventricles, sulci, cisterns: There is no hydrocephalus. The basal cisterns are patent. Calvarium: Unremarkable. Sinuses and mastoids: The visualized paranasal sinuses are clear. The mastoid air cells are well pneumatized. Orbits: The bony orbits are grossly intact. IMPRESSION: No acute intracranial findings. No significant change in appearance of the brain. ACT 112: Negative or not required by law. Electronically signed by: Mello Chung M.D. 05/06/2025 9:54 AM Brain MRI 05/07/25 11:10 MRI OF THE BRAIN WITHOUT IV CONTRAST CLINICAL HISTORY: Headache. Evaluate for cerebrovascular accident. COMPARISON STUDY: Head CT May 06, 2025. TECHNIQUE: MRI of the brain was performed utilizing various T1 and T2-weighted sequences in the axial, sagittal, and coronal planes. IV contrast was not administered for this examination. FINDINGS: This exam is mildly compromised by motion artifact although is diagnostic. There are no foci of restricted diffusion to suggest acute infarct. No acute intracranial hemorrhage, midline shift or mass effect is present. A few small foci of susceptibility artifact on the gradient echo sequence suggests trace old blood products. Ventricular system is unremarkable. Basal cisterns are patent. There is moderate atrophy. Numerous white matter T2 hyperintense foci represent moderate to extensive small vessel disease. No intracranial masses identified on unenhanced exam. There are a few small old lacunar infarcts within these bilateral thalami. IMPRESSION: 1. No acute intracranial findings. Mild motion artifact. 2. Moderate atrophy and moderate to extensive small vessel disease. A few old lacunar infarcts within the bilateral thalami. ACT 112: Negative or not required by law. Electronically signed by: Mello Chung M.D. 05/07/2025 3:24 PM Head MRA 05/07/25 11:23 MRA OF THE INTRACRANIAL CIRCULATION WITHOUT CONTRAST CLINICAL HISTORY: Headache. Old cerebellar infarct. COMPARISON STUDY: Head CT performed earlier today. TECHNIQUE: Utilizing a 3 Maria Isabel magnet and 3-D [id number] technique, unenhanced MRA of the intracranial circulation was obtained. FINDINGS: Please note that the MRI of the brain will be reported separately. The left A1 segment is diminutive, likely on a congenital basis. The bilateral M1, M2, A1 and A2 segments are patent. This exam is mildly compromised by motion artifact. No intracranial aneurysm is identified. The right vertebral artery is dominant. The intracranial portion of the left vertebral artery is diminutive, possibly on a congenital basis. Basilar artery is patent. The bilateral posterior cerebral arteries are patent. IMPRESSION: No large vessel occlusion. No intracranial aneurysm. ACT 112: Negative or not required by law. Electronically signed by: Mello Chung M.D. 05/07/2025 3:03 PM Neck MRA 05/07/25 11:23 MRA OF THE NECK WITHOUT CONTRAST CLINICAL HISTORY: HEADACHE, OLD CEREBELLAR INFARCT COMPARISON STUDY: None. TECHNIQUE: A 3 Maria Isabel magnet was utilized. 2-D and 3-D [id number] imaging was performed to obtain unenhanced MRA of the neck. NASCET criteria were utilized to estimate the degree of carotid stenosis. FINDINGS: Exam is suboptimal given lack of postcontrast imaging. The origins of the bilateral common carotid and vertebral arteries were not imaged on this exam. Visualized portions of the common carotid arteries are patent. The cervical right internal carotid artery is patent. The right vertebral artery is dominant and patent. The left vertebral artery is somewhat diminutive on a congenital basis. There is approximate 60% stenosis at the origin of the left internal carotid artery. No additional stenoses within the neck are identified. IMPRESSION: 1. Suboptimal evaluation of the major vessels of the neck given lack of postcontrast imaging. Origins of the bilateral common carotid and vertebral arteries not assessed on this exam. 2. Approximate 60% stenosis of the proximal left internal carotid artery. No additional stenoses identified. ACT 112: Negative or not required by law. Electronically signed by: Mello Chung M.D. 05/07/2025 3:30 PM Carotid Doppler Study 05/08/25 08:11 US carotid doppler BI CLINICAL HISTORY: 79 years-old Female with carotid stenosis. 60% stenosis of the left ICA. COMPARISON: MRA neck 05/07/2025 TECHNIQUE: Multiple real time sonographic images of the carotid bifurcations were obtained assessing tang scale, color Doppler and spectral wave form appearance FINDINGS: RIGHT CAROTID: The peak systolic velocity measured in the right ICA is 85 cm/sec. The end diastolic velocity measured 23 cm/sec. The ICA to CCA ratio measured 0.8 which correlates with a stenosis of 0-50%. LEFT CAROTID: The peak systolic velocity measured in the left ICA is 102 cm/sec. The end diastolic velocity measured 27 cm/sec. The ICA to CCA ratio measured 0.73 which correlates with a stenosis of 0-50%. There is normal antegrade vertebral flow bilaterally. Study is limited secondary to patient body habitus. There is atherosclerosis noted within the bilateral carotid bulbs. IMPRESSION: Atherosclerosis without elevated peak systolic velocities in the internal carotid arteries to suggest significant stenosis. ACT 112: Negative or not required by law. The above report was generated using voice recognition software. It may contain grammatical, syntax or spelling errors. Electronically signed by: Greyson Sarabia M.D. 05/08/2025 1:56 PM 05/06/25 09:18 CT head/brain wo con Stat 05/07/25 11:10 MRI Brain [MR brain wo con] Routine 05/07/25 11:23 MR angio head wo con Routine MR angio neck wo con Routine 05/08/25 08:11 Carotid duplex [US carotid doppler BI] Routine Pending Results Patient Have Any Pending Studies at Discharge: No Discharge Instructions Given to Patient (Per Discharging Provider) PLEASE REFER TO YOUR NEW MEDICATION LIST AND FOLLOW INSTRUCTIONS CAREFULLY. YOUR NEW MEDICATIONS INCLUDE: Losartan, Amlodipine-for blood pressure control Ezetimibe- for control of cholesterol level Stop irbesartan, HCTZ Do not take medications and other class of NSAIDs including ibuprofen, naprox en, etc. As they can be harmful to your kidneys. Call your primary care physician immediately if you are having vomiting or diarrhea. PLEASE CALL YOUR PRIMARY CARE PHYSICIAN OR RETURN TO THE ER IF WITH WORSENING OF SYMPTOMS, INCLUDING chest pain, dizziness, headache, shortness of breath, weakness, Etc. If with signs and symptoms of stroke, call 911 immediately FOLLOW UP WITH PRIMARY CARE PHYSICIAN OUTLINED ABOVE. Total Time Total Time Spent Total Time Spent (In Minutes): 45 MINUTES
[2025-05-12 16:09] VITALS: PULSE 73
[2025-05-12] MEDS: PNEUMOCOCCAL VACCINE (PCV20) 20-VAL CONJ-DIP CRM/PF 0.5 ML SYR IM ONE (17:17)
== END 2025-05-12 17:42 | disposition home or self-care (01) | DRG 304 ==
LOC: 2N 07:13 → ED 07:13 → SUATTDRO 10:16 → 2N 11:12